=== PATIENT | male | born 1970 | race Caucasian/White ===

== ENCOUNTER 2016-07-26 07:39 | Emergency (ER) | payer OTHER ==
[~2016-07-26] VITALS: Ht 165.1 cm; Wt 58.1 kg
[2016-07-26] MEDS ORDERED: KETOROLAC 60 MG/2 ML VIAL (J1885) IM ONE (08:30)
--- NOTE | 2016-07-26 09:08 | REP ---
CT CERVICAL SPINE WITHOUT CONTRAST: HISTORY: Trauma. COMPARISON: 11/28/2009. There is no acute fracture or subluxation. Disc bulges with associated osteophyte formation are present at the C5-6 and C6-7 levels. There is minimal narrowing of the spinal canal. Uncinate process hypertrophy is present at the C5-6 and C6-7 levels. This produces minimal narrowing of the neural foramina. The C5-6 and C6-7 intervertebral discs are decreased in height consistent with disc degeneration. Bullae are present in the lung apices. IMPRESSION: 1. There is no acute fracture or subluxation. 2. Degenerative change as described above. Signed by Filemon Mart MD 07/26/2016 09:11 A
--- NOTE | 2016-07-26 09:23 | REP ---
LUMBAR SPINE, FIVE VIEWS: HISTORY: Trauma. COMPARISON: 04/28/2008 There is no acute fracture or subluxation. The L3-4 and L4-5 intervertebral discs are decreased in height consistent with disc degeneration. Osteophytes are present on L1 through L5. The facet joints are normal in appearance. IMPRESSION: Degenerative change as described above. Signed by Filemon Mart MD 07/26/2016 09:28 A
[2016-07-26 09:51] VITALS: BP 109/62
[2016-07-26] MEDS ORDERED: ZANA4TAB PO (09:52)
[2016-07-26] MEDS ORDERED: MOBI7.5T10 PO (09:52)
[2016-07-27] MEDS ORDERED: ACET50TAOT PO (00:37)
[2016-07-29] MEDS ORDERED: OMEP40CA2 PO (15:27)
== END 2016-07-26 10:03 | disposition home or self-care (01) ==
LOC: M ED 09:02
DX: M51.36 Other intervertebral disc degeneration, lumbar region (principal); M54.2 Cervicalgia; V49.40XA Driver injured in collision with unspecified motor vehicles in traffic accident, initial encounter; Y92.410 Unspecified street and highway as the place of occurrence of the external cause; Y93.89 Activity, other specified; Y99.9 Unspecified external cause status
CPT/HCPCS: 72110; 72125; 96372; 99283; J1885

== ENCOUNTER 2016-07-27 00:23 | Emergency (ER) | payer OTHER ==
[~2016-07-27] VITALS: Ht 165.1 cm; Wt 58.1 kg
[~2016-07-27 00:23] MED LIST: MOBI7.5T10 PO; ZANA4TAB PO
[2016-07-27 00:31] VITALS: BP 158/81
[2016-07-27] MEDS ORDERED: ACET50TAOT PO (00:37)
[2016-07-27] MEDS ORDERED: OXYCODONE/APAP 5MG/325MG(BULK FOR ED) 1 TABLET PO ONE (03:15)
[2016-07-27] MEDS ORDERED: MORPHINE 10 MG/ML 1ML VIAL IM ONE (03:15)
[2016-07-28] MEDS ORDERED: PRED20TA PO (09:21)
[2016-07-28] MEDS ORDERED: PERC5TAB6 PO (09:21)
[2016-07-29] MEDS ORDERED: OMEP40CA2 PO (15:27)
== END 2016-07-27 03:31 | disposition home or self-care (01) ==
LOC: M ED 01:39
DX: M54.41 Lumbago with sciatica, right side (principal)

== ENCOUNTER 2016-07-28 07:44 | Emergency (ER) | payer OTHER ==
[~2016-07-28] VITALS: Ht 165.1 cm; Wt 58.1 kg
[~2016-07-28 07:44] MED LIST changes: +ACET50TAOT PO
[2016-07-28 08:00] VITALS: BP 120/82
[2016-07-28] MEDS ORDERED: PERCOCET 5MG/325MG TAB PO ONE (08:45)
[2016-07-28] MEDS ORDERED: PERC5TAB6 PO (09:21)
[2016-07-28] MEDS ORDERED: PRED20TA PO (09:21)
[2016-07-29] MEDS ORDERED: OMEP40CA2 PO (15:27)
== END 2016-07-28 09:32 | disposition home or self-care (01) ==
LOC: M ED 09:14
DX: M54.41 Lumbago with sciatica, right side (principal)
CPT/HCPCS: 96372; 99283; J3360

== ENCOUNTER 2016-08-01 10:39 | Emergency (ER) | payer OTHER ==
[~2016-08-01] VITALS: Ht 165.1 cm; Wt 58.1 kg
[~2016-08-01 10:39] MED LIST changes: +OMEP40CA2 PO; +PERC5TAB6 PO; +PRED20TA PO
[2016-08-01 10:40] VITALS: BP 133/84
[2016-08-01] MEDS ORDERED: PRED20TA (10:57)
== END 2016-08-01 12:18 | disposition left against medical advice (07) ==
LOC: M ED 12:13
DX: M54.9 Dorsalgia, unspecified (principal); Z53.21 Procedure and treatment not carried out due to patient leaving prior to being seen by health care provider

== ENCOUNTER → 2016-08-04 | Outpatient (CLI) | payer OTHER ==
[~2016-08-04] VITALS: Ht 165.1 cm; Wt 58.1 kg
[~2016-08-04] MED LIST changes: +LIDOCAINE 2% INJ 100 MG/5 ML SDV (FOR ANES.) As Ordered ONE; +NS 1,000 ML IV ONE; +PRED20TA; +PROPOFOL 200 MG/20 ML VIAL As Ordered ONE; +TRAM50TA2 PO
--- NOTE | 2016-08-04 15:09 | ROOR ---
Patient Name: Hunter Leone Procedure Date: 08/04/2016 2:53 PM Date of : 1970 Age: 46 Room: OP02 Gender: Male Note Status: Finalized Procedure: Upper GI endoscopy Indications: Heartburn, Unexplained chest pain resolved on once a day PPI. ("tickle in throat" persists despite BID PPI and is not likely reflux related) Providers: Selvin SY MD Referring MD: [facility] DIONI Rebeca CTR [facility] Tam Requesting Provider: Medicines: Monitored Anesthesia Care Complications: No immediate complications. Procedure: Pre-Anesthesia Assessment: - The heart rate, respiratory rate, oxygen saturations, blood pressure, adequacy of pulmonary ventilation, and response to care were monitored throughout the procedure. The Endoscope was introduced through the mouth, and advanced to the second part of duodenum. The upper GI endoscopy was accomplished without difficulty. The patient tolerated the procedure well. Findings: The examined esophagus was normal. Diffuse mild inflammation was found in the gastric antrum. Biopsies were taken with a cold forceps for Helicobacter pylori testing. The exam of the stomach was otherwise normal. The examined duodenum was normal. Impression: - Normal esophagus. - Mild antral gastritis. Biopsied. - Normal examined duodenum. Recommendation: - Use Prilosec (omeprazole) 40 mg PO daily. - Telephone endoscopist for pathology results in 2 weeks. Selvin Sy MD Selvin SY MD 08/04/2016 3:09:32 PM This report has been signed electronically. Number of Addenda: 0 Note Initiated On: 08/04/2016 2:53 PM Estimated Blood Loss: Estimated blood loss: none.
[2016-08-04 15:35] VITALS: BP 160/86
== END | disposition home or self-care (01) ==
LOC: M OPP 13:09
PROVIDERS: ATTEND Internal Medicine Gastroenterology
DX: K29.70 Gastritis, unspecified, without bleeding (principal); F31.9 Bipolar disorder, unspecified; F17.210 Nicotine dependence, cigarettes, uncomplicated; M54.30 Sciatica, unspecified side; Z79.899 Other long term (current) drug therapy

== ENCOUNTER 2016-08-07 23:07 | Emergency (ER) | payer OTHER ==
[~2016-08-07] VITALS: Ht 165.1 cm; Wt 59.0 kg
[2016-08-07 23:07] VITALS: BP 141/86
[~2016-08-07 23:07] MED LIST changes: -LIDOCAINE 2% INJ 100 MG/5 ML SDV (FOR ANES.) As Ordered ONE; -NS 1,000 ML IV ONE; -PROPOFOL 200 MG/20 ML VIAL As Ordered ONE; -TRAM50TA2 PO
[2016-08-08] MEDS ORDERED: dexameTHASONE 20 MG/5 ML VIAL (J1100) IM ONE (01:15)
[2016-08-08] MEDS ORDERED: KETOROLAC 60 MG/2 ML VIAL (J1885) IM ONE (01:15)
--- NOTE | 2016-08-08 02:30 | REPUSA ---
CLINICAL HISTORY: Back pain. TECHNIQUE: Multiple axial images were obtained through the L1-L2, L2-L3, L3-L4, L4-L5 and L5-S1 inter spaces. Images were also reconstructed in coronal and sagittal planes. COMMENTS: Mild degenerative levoscoliosis apex at L3. Straightening of lumbar lordosis. There is no fracture visualized. The paraspinal soft tissues are unremarkable. There are no lytic or blastic lesions. Straightening of lumbar lordosis is seen, suggesting muscular spasm. There is evidence of multilevel disk disease, demonstrated by osteophytosis ad endplate sclerosis. Evaluation of individual levels reveals the following: At L5-S1, mild diffuse disc bulge and posterior osteophyte formation. No significant narrowing of the spinal canal. Mild bilateral neural foramina narrowing. At L4-L5, mild diffuse disc bulge. Superimposed right foraminal/far lateral broad-based disc protrusi on measuring 4.6 mm. Moderate right and mild left neural foramina narrowing. At L3-L4, L2-L3 and L1-L2 levels, mild diffuse disc bulge. No significant narrowing of the spinal can al. Mild bilateral neural foramina narrowing. IMPRESSION: 1. No fracture or spondylolisthesis. 2. Straightening of lumbar lordosis is seen, suggesting muscular spasm. 3. At L5-S1, mild diffuse disc bulge and posterior osteophyte formation. No significant narrowing of the spinal canal. Mild bilateral neural foramina narrowing. 4. At L4-L5, mild diffuse disc bulge. Superimposed right foraminal/far lateral broad-based disc protr usion measuring 4.6 mm. Moderate right and mild left neural foramina narrowing. 5. At L3-L4, L2-L3 and L1-L2 levels, mild diffuse disc bulge. No significant narrowing of the spinal canal. Mild bilateral neural foramina narrowing. Thank you for your kind referral of this patient.
[2016-08-08] MEDS ORDERED: PRED20TA PO (02:40)
[2016-08-08] MEDS ORDERED: TRAM50TA2 PO (02:41)
[2016-08-08] MEDS ORDERED: traMADol 50 MG TAB PO ONE (02:45)
[2016-08-08] MEDS ORDERED: MORPHINE 10 MG/ML 1ML VIAL IM ONE (03:00)
== END 2016-08-08 03:43 | disposition home or self-care (01) ==
LOC: M ED 23:58
DX: M54.31 Sciatica, right side (principal); F17.210 Nicotine dependence, cigarettes, uncomplicated
CPT/HCPCS: 72131; 96372; 99282; J1100; J1885

== ENCOUNTER → 2017-01-23 | Outpatient (CLI) | payer OTHER ==
[~2017-01-23] MED LIST changes: +MOBI4TAB PO; -MOBI7.5T10 PO; +PERC5TAB12 PO; -PERC5TAB6 PO; +TRAM50TA2 PO
--- NOTE | 2017-01-23 10:21 | REP ---
Clinical: Acute neck and shoulder pain. Technique: Internal rotation, external rotation, and Y view of the right shoulder. Findings: Cortical irregularity and fraying along the inferior margin of the glenoid rim may reflect old injury. No acute gleno-humeral joint dislocation or fracture identified. Acromioclavicular joint appears normal. Subacromial space is normal. No periarticular calcifications. Impression: Irregularity along the inferior margin of the glenoid rim appears nonacute and may reflect old injury. Correlation is recommended. Signed by Slade Sun MD 01/23/2017 10:12 A
--- NOTE | 2017-01-23 10:22 | REP ---
Clinical: Acute pain. Technique: AP, lateral, flexion/extension, bilateral oblique and open mouth views of the cervical spine. Findings: Straightening of normal lordosis may be secondary to positioning versus pain/spasm. Advanced degenerative disc osteophyte complex at the C5-6 and C6-7 levels with moderate degenerative change at the C4-5 and C7-T1 levels noted. Findings include marginal osteophytes, endplate sclerosis and disc space narrowing. Posterior elements and spinous processes are intact. Open mouth view demonstrates normal C1-C2 articulation and odontoid process. Alignment is maintained and without subluxation. No acute fracture or dislocation. Prevertebral soft tissues are normal. Oblique views demonstrate patent neural foramen. Impression: Moderate/advanced degenerative changes. Signed by Slade Sun MD 01/23/2017 10:14 A
== END ==
LOC: M RAD 09:28
PROVIDERS: ATTEND Physician Assistant
DX: M50.30 Other cervical disc degeneration, unspecified cervical region (principal)

== ENCOUNTER → 2017-03-03 | Outpatient (CLI) | payer OTHER | LOC: M RAD 08:05 | DX: M54.12 Radiculopathy, cervical region (principal) | CPT/HCPCS: 72141 ==

== ENCOUNTER 2017-05-19 12:55 | Emergency (ER) | payer OTHER ==
[2017-05-19] MEDS: NS 1,000 ML IV (12:15)
[2017-05-19 12:40] LABS: BASO % 0.3 % (0.0-1.0); EOS # 0.1 10^3/uL (0.0-0.50); EOS % 0.7 % (0.0-3.0); HEMATOCRIT 45.9 % (42.0-52.0); HEMOGLOBIN 16.5 g/dl (14.0-18.0); IMMATURE GRANULOCYTE % 0.3 % (0-3.0); LYMPH # 1.8 10^3/uL (1.5-4.5); MEAN CORPUSCULAR HEMOGLOBIN 31.1 pg (27.0-33.0); MEAN CORPUSCULAR HGB CONC 35.9 g/dl (32.0-36.5); MEAN CORPUSCULAR VOLUME 86.4 fl (80.0-96.0); MONO # 0.7 10^3/uL (0.0-0.8); MONO % 7.3 % (0.0-5.0); NEUTROPHILS # 7.3 10^3/uL (1.8-7.7); NEUTROPHILS % 73.4 % (36.0-66.0); PLATELET COUNT, AUTOMATED 369 10^3/uL (150-450); RED BLOOD COUNT 5.31 10^6/uL (4.30-6.10); RED CELL DISTRIBUTION WIDTH 11.4 % (11.5-14.5)
[2017-05-19 12:53] LABS: ALBUMIN 4.3 GM/DL (3.2-5.2); ALBUMIN/GLOBULIN RATIO 1.54 (1.00-1.93); ALT/SGPT 18 U/L (12-78); ANION GAP 9 MEQ/L (8-16); AST/SGOT 14 U/L (7-37); BILIRUBIN,DIRECT 0.2 MG/DL (0.0-0.2); BILIRUBIN,TOTAL 0.9 MG/DL (0.2-1.0); BLOOD UREA NITROGEN 15 MG/DL (7-18); CALCIUM LEVEL 9.1 MG/DL (8.5-10.1); CARBON DIOXIDE LEVEL 24 MEQ/L (21-32); CHLORIDE LEVEL 105 MEQ/L (98-107); CPK CREATINE PHOSPHOKINASE 156 U/L (39-308); GLOMERULAR FILTRATION RATE > 60.0 (>60); GLUCOSE, FASTING 101 MG/DL (70-100); MAGNESIUM LEVEL 2.3 MG/DL (1.8-2.4); PHOSPHORUS LEVEL 2.3 MG/DL (2.5-4.9); POTASSIUM SERUM 3.9 MEQ/L (3.5-5.1); SODIUM LEVEL 138 MEQ/L (136-145); TOTAL PROTEIN 7.1 GM/DL (6.4-8.2); TROPONIN I < 0.02 NG/ML (< 0.10)
[2017-05-19 12:59] LABS: ALKALINE PHOSPHATASE 81 U/L (45-117); CK-MB VALUE MASS 1.1 NG/ML (0.0-3.6); FREE T4 1.48 NG/DL (0.76-1.46)
[2017-05-19] MEDS: NEUTRA-PHOS 1.25 GM PACKET PO (13:15)
[2017-05-19 13:27] LABS: AMPHETAMINES LEVEL URINE POSITIVE (NEGATIVE); BARBITURATES URINE NEGATIVE (NEGATIVE); BENZODIAZEPINES URINE NEGATIVE (NEGATIVE); CANNABINOIDS URINE POSITIVE (NEGATIVE); COCAINE METABOLITE URINE NEGATIVE (NEGATIVE); METHADONE URINE NEGATIVE (NEGATIVE); OPIATES URINE NEGATIVE (NEGATIVE); PHENCYCLIDINE URINE NEGATIVE (NEGATIVE)
== END 2017-05-19 14:40 | disposition home or self-care (01) ==
LOC: M ED 12:55
DX: R00.2 Palpitations (principal); F15.10 Other stimulant abuse, uncomplicated; F31.9 Bipolar disorder, unspecified; F17.200 Nicotine dependence, unspecified, uncomplicated; F12.10 Cannabis abuse, uncomplicated
CPT/HCPCS: 71046

== ENCOUNTER 2017-07-10 15:16 | Inpatient (IN) | payer MEDICAID, OTHER ==
[2017-07-10 16:20] LABS: HEMATOCRIT 41.8 % (42.0-52.0); HEMOGLOBIN 14.8 g/dl (13.5-17.5); MEAN CORPUSCULAR HEMOGLOBIN 31.2 pg (27.0-33.0); MEAN CORPUSCULAR HGB CONC 35.4 g/dl (32.0-36.5); PLATELET COUNT, AUTOMATED 417 10^3/uL (150-450); RED BLOOD COUNT 4.75 10^6/uL (4.30-6.10); RED CELL DISTRIBUTION WIDTH 11.9 % (11.5-14.5); WHITE BLOOD COUNT 9.1 10^3/uL (4.0-10.0)
[2017-07-10 16:42] LABS: AMPHETAMINES LEVEL URINE POSITIVE (NEGATIVE); BARBITURATES URINE NEGATIVE (NEGATIVE); BENZODIAZEPINES URINE NEGATIVE (NEGATIVE); CANNABINOIDS URINE POSITIVE (NEGATIVE); COCAINE METABOLITE URINE NEGATIVE (NEGATIVE); METHADONE URINE NEGATIVE (NEGATIVE); OPIATES URINE NEGATIVE (NEGATIVE); PHENCYCLIDINE URINE NEGATIVE (NEGATIVE)
[2017-07-10 16:53] LABS: ALBUMIN 4.1 GM/DL (3.2-5.2); ALBUMIN/GLOBULIN RATIO 1.14 (1.00-1.93); ALKALINE PHOSPHATASE 83 U/L (45-117); ALT/SGPT 15 U/L (12-78); ANION GAP 6 MEQ/L (8-16); AST/SGOT 16 U/L (7-37); BILIRUBIN,DIRECT 0.1 MG/DL (0.0-0.2); BILIRUBIN,TOTAL 0.7 MG/DL (0.2-1.0); BLOOD UREA NITROGEN 9 MG/DL (7-18); CALCIUM LEVEL 8.9 MG/DL (8.5-10.1); CARBON DIOXIDE LEVEL 27 MEQ/L (21-32); CHLORIDE LEVEL 106 MEQ/L (98-107); CREATININE FOR GFR 1.06 MG/DL (0.70-1.30); ETHYL ALCOHOL (ETHANOL) < 0.003 % (0.000-0.010); GLOMERULAR FILTRATION RATE > 60.0 (>60); GLUCOSE, FASTING 113 MG/DL (70-100); POTASSIUM SERUM 3.4 MEQ/L (3.5-5.1); SALICYLATE LEVEL 3.4 MG/DL (5.0-30.0); SODIUM LEVEL 139 MEQ/L (136-145); TOTAL PROTEIN 7.7 GM/DL (6.4-8.2)
[2017-07-10 17:00] LABS: ACETAMINOPHEN LEVEL < 2.0 UG/ML (10.0-30.0)
[2017-07-10] MEDS ORDERED: MAALOX 30 ML SUSP *UDC PO (18:45)
[2017-07-10] MEDS ORDERED: MOM 30ML SUSPENSION UDC PO (18:45)
[2017-07-10] MEDS ORDERED: ACETAMINOPHEN TAB 650MG DOSE (2X325MG) PO (18:45)
[2017-07-10] MEDS: hydrOXYzine 50 MG TAB PO (21:21)
[2017-07-10] MEDS: traZODone 50 MG TAB PO (22:37)
[2017-07-11] MEDS: NICOTINE 21MG/24HR 1 EA TRANSDERMAL TD ×2 (09:00→11:38)
[2017-07-11 10:05] LABS: ALBUMIN 3.6 GM/DL (3.2-5.2); ALBUMIN/GLOBULIN RATIO 1.16 (1.00-1.93); ALKALINE PHOSPHATASE 73 U/L (45-117); ALT/SGPT 15 U/L (12-78); ANION GAP 5 MEQ/L (8-16); AST/SGOT 15 U/L (7-37); BILIRUBIN,TOTAL 0.6 MG/DL (0.2-1.0); BLOOD UREA NITROGEN 9 MG/DL (7-18); CALCIUM LEVEL 9.2 MG/DL (8.5-10.1); CARBON DIOXIDE LEVEL 32 MEQ/L (21-32); CHLORIDE LEVEL 106 MEQ/L (98-107); CREATININE FOR GFR 1.11 MG/DL (0.70-1.30); GLOMERULAR FILTRATION RATE > 60.0 (>60); GLUCOSE, FASTING 84 MG/DL (70-100); MAGNESIUM LEVEL 2.5 MG/DL (1.8-2.4); POTASSIUM SERUM 4.4 MEQ/L (3.5-5.1); SODIUM LEVEL 143 MEQ/L (136-145); TOTAL PROTEIN 6.7 GM/DL (6.4-8.2)
[2017-07-11] MEDS: hydrOXYzine 50 MG TAB PO (16:13)
[2017-07-11] MEDS: traZODone 50 MG TAB PO (20:23)
[2017-07-12 09:09] LABS: HEPATITIS B SURFACE ANTIGEN NEGATIVE (NEGATIVE)
[2017-07-12 09:17] LABS: HEPATITIS C VIRUS ABY INDEX < 0.0 INDEX (<0.8)
[2017-07-12 09:18] LABS: HEPATITIS B CORE ANTIBODY IGM NEGATIVE (NEGATIVE); HIV 1&2 SCREEN CENTAUR NEGATIVE (NEGATIVE)
[2017-07-12 09:19] LABS: HEPATITIS A ANTIBODY IGM NEGATIVE (NEGATIVE)
[2017-07-12] MEDS: NICOTINE 21MG/24HR 1 EA TRANSDERMAL TD (09:37)
== END 2017-07-12 14:25 | disposition home or self-care (01) | DRG 885 ==
LOC: M ED 15:16 → M ED INP 18:43 → M PSY 20:01
DX: F31.9 Bipolar disorder, unspecified (principal); F15.10 Other stimulant abuse, uncomplicated; F17.210 Nicotine dependence, cigarettes, uncomplicated; R25.2 Cramp and spasm; F43.23 Adjustment disorder with mixed anxiety and depressed mood; Z63.5 Disruption of family by separation and divorce; Z63.79 Other stressful life events affecting family and household; Z59.0 Homelessness

== ENCOUNTER 2017-07-24 11:43 | Inpatient (IN) | payer MEDICAID, OTHER ==
[2017-07-24 12:31] LABS: HEMATOCRIT 41.1 % (42.0-52.0); HEMOGLOBIN 14.4 g/dl (13.5-17.5); MEAN CORPUSCULAR HEMOGLOBIN 31.1 pg (27.0-33.0); MEAN CORPUSCULAR VOLUME 88.8 fl (80.0-96.0); PLATELET COUNT, AUTOMATED 402 10^3/uL (150-450); RED BLOOD COUNT 4.63 10^6/uL (4.30-6.10); RED CELL DISTRIBUTION WIDTH 11.9 % (11.5-14.5); WHITE BLOOD COUNT 7.6 10^3/uL (4.0-10.0)
[2017-07-24 12:55] LABS: AMPHETAMINES LEVEL URINE POSITIVE (NEGATIVE); BARBITURATES URINE NEGATIVE (NEGATIVE); BENZODIAZEPINES URINE NEGATIVE (NEGATIVE); CANNABINOIDS URINE POSITIVE (NEGATIVE); COCAINE METABOLITE URINE NEGATIVE (NEGATIVE); METHADONE URINE NEGATIVE (NEGATIVE); OPIATES URINE NEGATIVE (NEGATIVE); PHENCYCLIDINE URINE NEGATIVE (NEGATIVE)
[2017-07-24 12:59] LABS: ACETAMINOPHEN LEVEL < 2.0 UG/ML (10.0-30.0); ALBUMIN/GLOBULIN RATIO 1.25 (1.00-1.93); ALKALINE PHOSPHATASE 75 U/L (45-117); ALT/SGPT 20 U/L (12-78); ANION GAP 7 MEQ/L (8-16); AST/SGOT 19 U/L (7-37); BILIRUBIN,DIRECT 0.2 MG/DL (0.0-0.2); BILIRUBIN,TOTAL 0.7 MG/DL (0.2-1.0); BLOOD UREA NITROGEN 9 MG/DL (7-18); CALCIUM LEVEL 8.9 MG/DL (8.5-10.1); CARBON DIOXIDE LEVEL 29 MEQ/L (21-32); CHLORIDE LEVEL 104 MEQ/L (98-107); CREATININE FOR GFR 1.04 MG/DL (0.70-1.30); ETHYL ALCOHOL (ETHANOL) < 0.003 % (0.000-0.010); GLOMERULAR FILTRATION RATE > 60.0 (>60); GLUCOSE, FASTING 135 MG/DL (70-100); POTASSIUM SERUM 3.7 MEQ/L (3.5-5.1); SALICYLATE LEVEL 2.9 MG/DL (5.0-30.0); SODIUM LEVEL 140 MEQ/L (136-145); TOTAL PROTEIN 7.2 GM/DL (6.4-8.2)
[2017-07-24] MEDS: NICOTINE 21MG/24HR 1 EA TRANSDERMAL TD (13:45)
[2017-07-24] MEDS ORDERED: ACETAMINOPHEN TAB 650MG DOSE (2X325MG) PO (18:45)
[2017-07-24] MEDS ORDERED: MOM 30ML SUSPENSION UDC PO (18:45)
[2017-07-24] MEDS: traZODone 50 MG TAB PO (20:58)
[2017-07-25] MEDS: NICOTINE 21MG/24HR 1 EA TRANSDERMAL TD (08:08)
[2017-07-25] MEDS: BACTRIM 160MG/800MG DS TAB PO ×2 (09:11→20:08)
[2017-07-25] MEDS: hydrOXYzine 50 MG TAB PO (12:35)
[2017-07-25] MEDS: traZODone 50 MG TAB PO (20:08)
[2017-07-25] MEDS: MAALOX 30 ML SUSP *UDC PO (20:08)
[2017-07-26] MEDS: BACTRIM 160MG/800MG DS TAB PO ×2 (08:30→20:05)
[2017-07-26] MEDS: NICOTINE 21MG/24HR 1 EA TRANSDERMAL TD (08:31)
[2017-07-26] MEDS: MAALOX 30 ML SUSP *UDC PO (20:06)
[2017-07-26] MEDS: traZODone 50 MG TAB PO (20:07)
[2017-07-27] MEDS: BACTRIM 160MG/800MG DS TAB PO (08:26)
[2017-07-27] MEDS: NICOTINE 21MG/24HR 1 EA TRANSDERMAL TD (08:26)
[2017-07-27] MEDS: ARIPiprazole MONOHYDRATE 400 MG INJ (ABILIFY)(J0401) IM (09:43)
== END 2017-07-27 11:00 | disposition home or self-care (01) | DRG 885 ==
LOC: M ED 11:43 → M ED INP 15:27 → M PSY 16:38
DX: F31.9 Bipolar disorder, unspecified (principal); F43.23 Adjustment disorder with mixed anxiety and depressed mood; F15.10 Other stimulant abuse, uncomplicated; F17.210 Nicotine dependence, cigarettes, uncomplicated; Z59.0 Homelessness; Z79.899 Other long term (current) drug therapy

== ENCOUNTER 2017-08-01 08:56 | Inpatient (IN) | payer MEDICAID, OTHER ==
[2017-08-01 09:46] LABS: HEMATOCRIT 40.9 % (42.0-52.0); HEMOGLOBIN 14.3 g/dl (13.5-17.5); MEAN CORPUSCULAR VOLUME 88.7 fl (80.0-96.0); PLATELET COUNT, AUTOMATED 272 10^3/uL (150-450); RED BLOOD COUNT 4.61 10^6/uL (4.30-6.10); RED CELL DISTRIBUTION WIDTH 11.9 % (11.5-14.5); WHITE BLOOD COUNT 5.6 10^3/uL (4.0-10.0)
[2017-08-01 10:12] LABS: AMPHETAMINES LEVEL URINE POSITIVE (NEGATIVE); BARBITURATES URINE NEGATIVE (NEGATIVE); BENZODIAZEPINES URINE NEGATIVE (NEGATIVE); CANNABINOIDS URINE NEGATIVE (NEGATIVE); COCAINE METABOLITE URINE POSITIVE (NEGATIVE); METHADONE URINE NEGATIVE (NEGATIVE); OPIATES URINE NEGATIVE (NEGATIVE); PHENCYCLIDINE URINE NEGATIVE (NEGATIVE)
[2017-08-01 10:20] LABS: ACETAMINOPHEN LEVEL < 2.0 UG/ML (10.0-30.0); ALBUMIN 3.7 GM/DL (3.2-5.2); ALBUMIN/GLOBULIN RATIO 1.19 (1.00-1.93); ALKALINE PHOSPHATASE 83 U/L (45-117); ALT/SGPT 22 U/L (12-78); ANION GAP 5 MEQ/L (8-16); AST/SGOT 22 U/L (7-37); BILIRUBIN,DIRECT 0.1 MG/DL (0.0-0.2); BILIRUBIN,TOTAL 0.5 MG/DL (0.2-1.0); BLOOD UREA NITROGEN 11 MG/DL (7-18); CALCIUM LEVEL 8.4 MG/DL (8.5-10.1); CARBON DIOXIDE LEVEL 28 MEQ/L (21-32); CHLORIDE LEVEL 103 MEQ/L (98-107); CREATININE FOR GFR 0.99 MG/DL (0.70-1.30); GLOMERULAR FILTRATION RATE > 60.0 (>60); GLUCOSE, FASTING 107 MG/DL (70-100); POTASSIUM SERUM 4.2 MEQ/L (3.5-5.1); SALICYLATE LEVEL 3.3 MG/DL (5.0-30.0); SODIUM LEVEL 136 MEQ/L (136-145); TOTAL PROTEIN 6.8 GM/DL (6.4-8.2)
[2017-08-01 10:21] LABS: ETHYL ALCOHOL (ETHANOL) < 0.003 % (0.000-0.010)
[2017-08-01 10:31] LABS: CPK CREATINE PHOSPHOKINASE 103 U/L (39-308)
[2017-08-01] MEDS ORDERED: ACETAMINOPHEN TAB 650MG DOSE (2X325MG) PO (14:45)
[2017-08-01] MEDS: NICOTINE 21MG/24HR 1 EA TRANSDERMAL TD (14:45)
[2017-08-01] MEDS ORDERED: MOM 30ML SUSPENSION UDC PO (14:45)
[2017-08-01] MEDS: traZODone 50 MG TAB PO (22:34)
[2017-08-01 22:41] LABS: CHLAMYDIA DNA AMPLIFICATION NEGATIVE (NEGATIVE); GC DNA AMPLIFICATION NEGATIVE (NEGATIVE)
[2017-08-02] MEDS: NICOTINE 21MG/24HR 1 EA TRANSDERMAL TD (09:09)
[2017-08-02] MEDS: MAALOX 30 ML SUSP *UDC PO (11:46)
[2017-08-02 11:53] LABS: BASO % 0.5 % (0.0-1.0); EOS # 0.1 10^3/uL (0.0-0.50); EOS % 3.4 % (0.0-3.0); HEMATOCRIT 39.1 % (42.0-52.0); HEMOGLOBIN 13.6 g/dl (13.5-17.5); IMMATURE GRANULOCYTE % 0.2 % (0-3.0); LYMPH # 1.1 10^3/uL (1.5-4.5); LYMPH % 26.8 % (24.0-44.0); MEAN CORPUSCULAR HEMOGLOBIN 31.1 pg (27.0-33.0); MEAN CORPUSCULAR HGB CONC 34.8 g/dl (32.0-36.5); MEAN CORPUSCULAR VOLUME 89.3 fl (80.0-96.0); MONO # 0.6 10^3/uL (0.0-0.8); MONO % 14.8 % (0.0-5.0); NEUTROPHILS # 2.2 10^3/uL (1.8-7.7); NEUTROPHILS % 54.3 % (36.0-66.0); PLATELET COUNT, AUTOMATED 276 10^3/uL (150-450); RED BLOOD COUNT 4.38 10^6/uL (4.30-6.10); WHITE BLOOD COUNT 4.1 10^3/uL (4.0-10.0)
[2017-08-02 12:05] LABS: D-DIMER QUANT 835.8 ng/ml (<500)
[2017-08-02 12:26] LABS: ALBUMIN 3.2 GM/DL (3.2-5.2); ALBUMIN/GLOBULIN RATIO 0.91 (1.00-1.93); ALKALINE PHOSPHATASE 73 U/L (45-117); ALT/SGPT 25 U/L (12-78); ANION GAP 4 MEQ/L (8-16); AST/SGOT 21 U/L (7-37); BILIRUBIN,TOTAL 0.3 MG/DL (0.2-1.0); BLOOD UREA NITROGEN 15 MG/DL (7-18); CALCIUM LEVEL 8.8 MG/DL (8.5-10.1); CARBON DIOXIDE LEVEL 32 MEQ/L (21-32); CHLORIDE LEVEL 102 MEQ/L (98-107); CPK CREATINE PHOSPHOKINASE 62 U/L (39-308); CREATININE FOR GFR 1.02 MG/DL (0.70-1.30); GLOMERULAR FILTRATION RATE > 60.0 (>60); GLUCOSE, FASTING 90 MG/DL (70-100); POTASSIUM SERUM 4.4 MEQ/L (3.5-5.1); SODIUM LEVEL 138 MEQ/L (136-145); TOTAL PROTEIN 6.7 GM/DL (6.4-8.2); TROPONIN I 0.31 NG/ML (< 0.10)
[2017-08-02 12:27] LABS: CK-MB VALUE MASS < 1.0 NG/ML (<3.6); MB/CK RELATIVE INDEX 1.61 (< OR =4)
[2017-08-02] MEDS ORDERED: ISOVUE-370 76% 100ML VIAL (Q9967) As Ordered (12:35)
[2017-08-02 12:38] LABS: KETONE, URINE AUTO RFX NEGATIVE (NEGATIVE); LEUKOCYTE ESTERASE UR AUTO RFX NEGATIVE (NEGATIVE); MUCUS, URINE RFX SMALL (NEGATIVE); NITRITE, URINE AUTO RFX NEGATIVE (NEGATIVE); RBC, URINE AUTO RFX 1 /HPF (0-3); SQUAM EPITHELIAL CELL UR AURFX 0 /HPF (0-6); WBC, URINE AUTO RFX 0 /HPF (0-3)
[2017-08-02] MEDS: traZODone 50 MG TAB PO (20:30)
[2017-08-03 06:01] LABS: CK-MB VALUE MASS 1.1 NG/ML (<3.6); CPK CREATINE PHOSPHOKINASE 45 U/L (39-308); MB/CK RELATIVE INDEX 2.44 (< OR =4); TROPONIN I 0.29 NG/ML (< 0.10)
[2017-08-03] MEDS: NICOTINE 21MG/24HR 1 EA TRANSDERMAL TD (08:43)
[2017-08-03] MEDS: hydrOXYzine 50 MG TAB PO (16:47)
[2017-08-03 17:41] LABS: FREE THYROXINE INDEX 2.6 % (1.4-3.8); T UPTAKE 32 % (33-40)
[2017-08-03 17:41] LABS: TROPONIN I 0.16 NG/ML (< 0.10)
[2017-08-03] MEDS: MAALOX 30 ML SUSP *UDC PO (20:09)
[2017-08-03] MEDS: traZODone 50 MG TAB PO (20:09)
[2017-08-03] MEDS ORDERED: cloNIDine 0.1 MG TAB PO (20:45)
[2017-08-04 03:02] LABS: HSV IgM TYPES 1&2 <0.91 Ratio (0.00-0.90)
[2017-08-04] MEDS: MAALOX 30 ML SUSP *UDC PO (09:16)
[2017-08-04] MEDS: NICOTINE 21MG/24HR 1 EA TRANSDERMAL TD (09:17)
[2017-08-04] MEDS: hydrOXYzine 50 MG TAB PO (17:01)
[2017-08-04] MEDS: traZODone 50 MG TAB PO (20:15)
[2017-08-05] MEDS: NICOTINE 21MG/24HR 1 EA TRANSDERMAL TD (09:22)
[2017-08-05] MEDS: hydrOXYzine 50 MG TAB PO (16:21)
[2017-08-05] MEDS: traZODone 50 MG TAB PO (20:23)
[2017-08-06] MEDS: NICOTINE 21MG/24HR 1 EA TRANSDERMAL TD (08:07)
[2017-08-06] MEDS: hydrOXYzine 50 MG TAB PO (20:14)
[2017-08-06] MEDS: traZODone 50 MG TAB PO (20:14)
[2017-08-07] MEDS: NICOTINE 21MG/24HR 1 EA TRANSDERMAL TD (09:00)
== END 2017-08-07 08:30 | disposition home or self-care (01) | DRG 885 ==
LOC: M PSY 08-04 18:20 → M ED 08:56 → M ED INP 12:34 → M PSY 13:22
DX: F31.9 Bipolar disorder, unspecified (principal); F12.10 Cannabis abuse, uncomplicated; F14.10 Cocaine abuse, uncomplicated; F15.10 Other stimulant abuse, uncomplicated; F17.210 Nicotine dependence, cigarettes, uncomplicated; R05 Cough; R06.02 Shortness of breath; F19.24 Other psychoactive substance dependence with psychoactive substance-induced mood disorder; Z79.899 Other long term (current) drug therapy

== ENCOUNTER 2018-01-09 07:11 | Emergency (ER) | payer OTHER, MEDICAID ==
[2018-01-09] MEDS: NS 1,000 ML IV ×2 (07:45→12:06)
[2018-01-09 07:55] LABS: HEMATOCRIT 42.7 % (42.0-52.0); HEMOGLOBIN 14.5 g/dl (13.5-17.5); MEAN CORPUSCULAR HEMOGLOBIN 30.5 pg (27.0-33.0); MEAN CORPUSCULAR VOLUME 89.9 fl (80.0-96.0); PLATELET COUNT, AUTOMATED 238 10^3/uL (150-450); RED BLOOD COUNT 4.75 10^6/uL (4.30-6.10); RED CELL DISTRIBUTION WIDTH 13.1 % (11.5-14.5); WHITE BLOOD COUNT 5.4 10^3/uL (4.0-10.0)
[2018-01-09 10:20] LABS: ACETAMINOPHEN LEVEL 2.1 UG/ML (10.0-30.0); ALBUMIN/GLOBULIN RATIO 1.25 (1.00-1.93); ALKALINE PHOSPHATASE 59 U/L (45-117); ALT/SGPT 13 U/L (12-78); ANION GAP 9 MEQ/L (8-16); AST/SGOT 20 U/L (7-37); BILIRUBIN,DIRECT 0.1 MG/DL (0.0-0.2); BILIRUBIN,TOTAL 0.4 MG/DL (0.2-1.0); BLOOD UREA NITROGEN 14 MG/DL (7-18); CALCIUM LEVEL 7.6 MG/DL (8.5-10.1); CARBON DIOXIDE LEVEL 25 MEQ/L (21-32); CHLORIDE LEVEL 103 MEQ/L (98-107); CPK CREATINE PHOSPHOKINASE 148 U/L (39-308); CREATININE FOR GFR 0.86 MG/DL (0.70-1.30); ETHYL ALCOHOL (ETHANOL) < 0.003 % (0.000-0.010); GLOMERULAR FILTRATION RATE > 60.0 (>60); GLUCOSE, FASTING 119 MG/DL (70-100); MAGNESIUM LEVEL 1.9 MG/DL (1.8-2.4); MB/CK RELATIVE INDEX 1.22 (< OR =4); MYOGLOBIN 47 NG/ML (16-116); PHOSPHORUS LEVEL 2.8 MG/DL (2.5-4.9); POTASSIUM SERUM 3.6 MEQ/L (3.5-5.1); SALICYLATE LEVEL < 1.7 MG/DL (5.0-30.0); SODIUM LEVEL 137 MEQ/L (136-145); TOTAL PROTEIN 5.4 GM/DL (6.4-8.2); TROPONIN I < 0.02 NG/ML (< 0.10); VALPROIC ACID (DEPAKOTE) < 3.0 UG/ML (50.0-100.0)
[2018-01-09] MEDS: LORazepam 2 MG/ML VIAL (J2060) IV (13:19)
[2018-01-09 15:49] LABS: AMPHETAMINES LEVEL URINE POSITIVE (NEGATIVE)
[2018-01-09 15:50] LABS: BARBITURATES URINE NEGATIVE (NEGATIVE); BENZODIAZEPINES URINE NEGATIVE (NEGATIVE); CANNABINOIDS URINE NEGATIVE (NEGATIVE); COCAINE METABOLITE URINE NEGATIVE (NEGATIVE); METHADONE URINE NEGATIVE (NEGATIVE); OPIATES URINE NEGATIVE (NEGATIVE); PHENCYCLIDINE URINE NEGATIVE (NEGATIVE)
[2018-01-09] MEDS: GABAPENTIN 300 MG CAP PO (22:32)
[2018-01-09] MEDS: DIVALPROEX 500 MG TAB PO (22:32)
== END 2018-01-10 08:09 ==
LOC: M ED 01-10 08:09
DX: F19.10 Other psychoactive substance abuse, uncomplicated (principal); R45.851 Suicidal ideations; F32.9 Major depressive disorder, single episode, unspecified; F41.9 Anxiety disorder, unspecified; Z79.899 Other long term (current) drug therapy
CPT/HCPCS: J2060

== ENCOUNTER 2018-02-02 22:49 | Emergency (ER) | payer OTHER | END 2018-02-03 01:02 | disposition home or self-care (01) | LOC: M ED 22:49 | DX: F11.10 Opioid abuse, uncomplicated (principal) | CPT/HCPCS: 99285 ==

== ENCOUNTER 2018-02-05 11:07 | Inpatient (IN) | payer MEDICAID, OTHER ==
[2018-02-05] MEDS: NICOTINE 21MG/24HR 1 EA TRANSDERMAL TD (09:00)
[2018-02-05 12:27] LABS: HEMATOCRIT 47.3 % (42.0-52.0); HEMOGLOBIN 16.1 g/dl (13.5-17.5); MEAN CORPUSCULAR HEMOGLOBIN 29.8 pg (27.0-33.0); MEAN CORPUSCULAR VOLUME 87.6 fl (80.0-96.0); PLATELET COUNT, AUTOMATED 403 10^3/uL (150-450); RED CELL DISTRIBUTION WIDTH 12.5 % (11.5-14.5); WHITE BLOOD COUNT 7.4 10^3/uL (4.0-10.0)
[2018-02-05 12:52] LABS: AMPHETAMINES LEVEL URINE POSITIVE (NEGATIVE); BARBITURATES URINE NEGATIVE (NEGATIVE); BENZODIAZEPINES URINE NEGATIVE (NEGATIVE); CANNABINOIDS URINE NEGATIVE (NEGATIVE); COCAINE METABOLITE URINE NEGATIVE (NEGATIVE); METHADONE URINE NEGATIVE (NEGATIVE); OPIATES URINE POSITIVE (NEGATIVE); PHENCYCLIDINE URINE NEGATIVE (NEGATIVE)
[2018-02-05 13:37] LABS: ACETAMINOPHEN LEVEL < 2.0 UG/ML (10.0-30.0); ALBUMIN 3.6 GM/DL (3.2-5.2); ALBUMIN/GLOBULIN RATIO 0.82 (1.00-1.93); ALKALINE PHOSPHATASE 99 U/L (45-117); ALT/SGPT 25 U/L (12-78); ANION GAP 8 MEQ/L (8-16); AST/SGOT 23 U/L (7-37); BILIRUBIN,DIRECT < 0.1 MG/DL (0.0-0.2); BILIRUBIN,TOTAL 0.5 MG/DL (0.2-1.0); BLOOD UREA NITROGEN 11 MG/DL (7-18); CALCIUM LEVEL 9.1 MG/DL (8.5-10.1); CARBON DIOXIDE LEVEL 25 MEQ/L (21-32); CHLORIDE LEVEL 105 MEQ/L (98-107); CREATININE FOR GFR 0.96 MG/DL (0.70-1.30); ETHYL ALCOHOL (ETHANOL) < 0.003 % (0.000-0.010); GLOMERULAR FILTRATION RATE > 60.0 (>60); GLUCOSE, FASTING 79 MG/DL (70-100); POTASSIUM SERUM 4.5 MEQ/L (3.5-5.1); SALICYLATE LEVEL 2.2 MG/DL (5.0-30.0); SODIUM LEVEL 138 MEQ/L (136-145); THYROID STIMULATING HORMONE 0.621 uIU/ML (0.358-3.740)
[2018-02-05] MEDS ORDERED: MOM 30ML SUSPENSION UDC PO (15:00)
[2018-02-05] MEDS ORDERED: MAALOX 30 ML SUSP *UDC PO (15:00)
[2018-02-06] MEDS: NICOTINE 21MG/24HR 1 EA TRANSDERMAL TD (09:00)
[2018-02-06] MEDS: BACTRIM 160MG/800MG DS TAB PO ×2 (09:58→20:54)
[2018-02-06] MEDS: METHADONE 10 MG TAB (S0109) PO ×3 (10:17→20:55)
[2018-02-06] MEDS: traZODone 50 MG TAB PO (20:55)
[2018-02-07] MEDS: BACTRIM 160MG/800MG DS TAB PO ×2 (10:26→21:02)
[2018-02-07] MEDS: NICOTINE 21MG/24HR 1 EA TRANSDERMAL TD (10:26)
[2018-02-07 10:41] LABS: HEPATITIS A ANTIBODY IGM NEGATIVE (NEGATIVE); HEPATITIS B CORE ANTIBODY IGM NEGATIVE (NEGATIVE); HEPATITIS B SURFACE ANTIGEN NEGATIVE (NEGATIVE); HIV 1&2 SCREEN CENTAUR NEGATIVE (NEGATIVE)
[2018-02-07 10:41] LABS: HEPATITIS C VIRUS ABY INDEX 0.1 INDEX (<0.8)
[2018-02-07] MEDS: LORazepam 1 MG TAB PO (11:17)
[2018-02-07] MEDS: cloNIDine 0.1 MG TAB PO ×2 (15:51→21:02)
[2018-02-07] MEDS ORDERED: LORazepam 1 MG TAB PO (16:00)
[2018-02-07] MEDS: diphenhydrAMINE 25 MG CAP PO (21:01)
[2018-02-07] MEDS: hydrOXYzine 50 MG TAB PO (21:01)
[2018-02-07] MEDS: traZODone 50 MG TAB PO (21:01)
[2018-02-08] MEDS: BACTRIM 160MG/800MG DS TAB PO ×2 (10:01→21:00)
[2018-02-08] MEDS: NICOTINE 21MG/24HR 1 EA TRANSDERMAL TD (10:01)
[2018-02-08] MEDS: cloNIDine 0.1 MG TAB PO ×3 (10:01→21:00)
[2018-02-08] MEDS: traZODone 50 MG TAB PO (23:19)
[2018-02-08] MEDS: diphenhydrAMINE 25 MG CAP PO (23:19)
[2018-02-09] MEDS: NICOTINE 21MG/24HR 1 EA TRANSDERMAL TD (09:00)
[2018-02-09] MEDS: BACTRIM 160MG/800MG DS TAB PO (09:00)
[2018-02-09] MEDS: cloNIDine 0.1 MG TAB PO (09:00)
== END 2018-02-09 13:45 | disposition home or self-care (01) | DRG 751 ==
LOC: M ED 11:07 → M ED INP 14:47 → M PSY 16:05
DX: F33.9 Major depressive disorder, recurrent, unspecified (principal); F15.259 Other stimulant dependence with stimulant-induced psychotic disorder, unspecified; F11.23 Opioid dependence with withdrawal; F17.210 Nicotine dependence, cigarettes, uncomplicated; F15.23 Other stimulant dependence with withdrawal

== ENCOUNTER 2018-02-13 14:53 | Inpatient (IN) | payer MEDICAID ==
[~2018-02-13] VITALS: Ht 165.1 cm; Wt 55.0 kg
[~2018-02-13 14:53] MED LIST changes: +ABIL10TA9 PO; +ABIL1TAB11 PO; +ABIL400I IM; +ACET500T15 PO; -ACET50TAOT PO; +ARIP5TA PO; +ATIV1TAB7 PO; +CLON-412 PO; +CLONI1TA PO; +DIVA500T94 PO; +GABA-843 PO; +HYDR50TA70 PO; +HYDRO50TAB PO; +NICO21PAT TD; +NICO2GUM8 PO; +SULF1TAB93 PO; +TRAZ-160 PO; +TRAZO50TA PO
[2018-02-13 18:11] LABS: HEMATOCRIT 45.8 % (42.0-52.0); HEMOGLOBIN 15.6 g/dl (13.5-17.5); MEAN CORPUSCULAR HEMOGLOBIN 30.5 pg (27.0-33.0); MEAN CORPUSCULAR HGB CONC 34.1 g/dl (32.0-36.5); MEAN CORPUSCULAR VOLUME 89.6 fl (80.0-96.0); PLATELET COUNT, AUTOMATED 404 10^3/uL (150-450); RED BLOOD COUNT 5.11 10^6/uL (4.30-6.10); WHITE BLOOD COUNT 8.6 10^3/uL (4.0-10.0)
[2018-02-13 18:21] LABS: ACETAMINOPHEN LEVEL < 2.0 UG/ML (10.0-30.0); ALT/SGPT 31 U/L (12-78); BILIRUBIN,DIRECT 0.2 MG/DL (0.0-0.2); BLOOD UREA NITROGEN 18 MG/DL (7-18); CALCIUM LEVEL 9.2 MG/DL (8.5-10.1); CARBON DIOXIDE LEVEL 27 MEQ/L (21-32); CHLORIDE LEVEL 104 MEQ/L (98-107); ETHYL ALCOHOL (ETHANOL) 0.005 % (0.000-0.010); GLOMERULAR FILTRATION RATE > 60.0 (>60); GLUCOSE, FASTING 71 MG/DL (70-100); POTASSIUM SERUM 4.2 MEQ/L (3.5-5.1); SALICYLATE LEVEL < 1.7 MG/DL (5.0-30.0); SODIUM LEVEL 139 MEQ/L (136-145); TOTAL PROTEIN 7.9 GM/DL (6.4-8.2)
[2018-02-13 18:49] LABS: AMPHETAMINES LEVEL URINE POSITIVE (NEGATIVE); BARBITURATES URINE NEGATIVE (NEGATIVE); BENZODIAZEPINES URINE NEGATIVE (NEGATIVE); CANNABINOIDS URINE NEGATIVE (NEGATIVE); COCAINE METABOLITE URINE NEGATIVE (NEGATIVE); METHADONE URINE POSITIVE (NEGATIVE); OPIATES URINE POSITIVE (NEGATIVE); PHENCYCLIDINE URINE NEGATIVE (NEGATIVE)
[2018-02-13] MEDS ORDERED: TRAZ25TA PO (19:20)
[2018-02-13] MEDS ORDERED: HYDRO50TAB PO (19:20)
[2018-02-13] MEDS ORDERED: BACT800T5 PO (19:20)
[2018-02-13] MEDS ORDERED: ATIV1TAB7 PO (19:20)
[2018-02-13] MEDS ORDERED: MAALOX 30 ML SUSP *UDC PO PRN (20:15)
[2018-02-13] MEDS ORDERED: traZODone 50 MG TAB PO PRN (20:15)
[2018-02-13] MEDS ORDERED: MOM 30ML SUSPENSION UDC PO PRN (20:15)
[2018-02-13] MEDS ORDERED: ACETAMINOPHEN TAB 650MG DOSE (2X325MG) PO PRN (20:15)
[2018-02-13 22:52] VITALS: BP 114/73
[2018-02-13] MEDS ORDERED: hydrOXYzine 50 MG TAB PO PRN (23:15)
[2018-02-14 06:24] VITALS: BP 120/75
--- NOTE | 2018-02-14 08:45 | HPEPDOC ---
[facility] Medical History & Physical Date of Admission Feb 13, 2018 History and Physical PCP: Dr Pemberton ATTENDING: Dr. Selena Torres HPI: 47yoM admitted to [facility] for MDD, being medically examined today. The pt states that he has been injecting methamphetamine and heroin. The patient is reporting discomfort at the right antecubital area at prior injection sites. There is no drainage. No erythema. Pt reports tenderness with palpation. No warmth. No streaking. Denies any fevers, chills, weakness, fatigue, SALAZAR, CP, SOB, cough, palpitations, abdominal pain, N/V/D or changes in bowel or bladder habits. 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 History of marijuana, cocaine, methamphetamine, heroin. Attended [place] in 2011. IV Drug Use: Methamphetamine Tattoos done unprofessionally: Denies FAMHX: Mother: , COPD Father: , [place] Siblings: Alive, well Children: Alive, well Unexpected deaths due to medical reasons: None. ROS: As noted in HPI, otherwise 11pt ROS of systems reviewed and unremarkable. PE: GEN: 47 yo M, appears stated age. Well-nourished, well developed. No acute distress. Alert and oriented x 3. Pleasant, interactive. HEENT: Normocephalic, atraumatic. Pupils are equal, round, and reactive to light. Extraocular movements are intact. No nystagmus appreciated. Sclera are nonicteric. Conjunctiva without injection. Nose midline. Nasal turbinates without bogginess. EACs both patent BL. TMs both visualized and gonzalez with good cone of light, no bulging or erythema. No facial asymmetry. Moist mucous membranes. Pharynx pink and moist, no cobblestoning. Neck supple, trachea midline. No lymphadenopathy or thyromegaly appreciated. CHEST: Regular rate and rhythm, +S1, +S2 LUNGS: Clear to auscultation bilaterally. No wheezes, rales, or rhonchi. Breathing appears symmetric and easy. Patient is speaking in full sentences. No accessory muscle use. ABD: Round, soft, non-tender, non-distended. +Bowel sounds throughout. No rebound or guarding. No costovertebral angle tenderness. EXT: Pulses 2+ bilaterally dorsalis pedis and radial. No lower extremity edema appreciated. There is no calf tenderness, warmth, erythema or cording noted. SKIN: [place], dry, warm. No rashes. Multiple injection sites are noted at the bilateral forearms and antecubital areas, mild tenderness is noted at the right antecubital area with approximate 2 cm firm nodule however no erythema, drainage, streaking, warmth. No other areas of tenderness, streaking, edema, erythema, drainage noted. NEURO: Alert and oriented x 3. Cranial nerves III-XII are intact. No focal deficits appreciated. EKG: SINUS RHYTHM PROBABLE INFERIOR MYOCARDIAL INFARCTION, OF INDETERMINATE AGE LOW VOLTAGE SIMILAR 08/03/17 Electronically Signed On 01-09-2018 13:40:30 EST by Dori Tran RUE U/S No evidence of deep venous thrombosis of the right upper extremity deep vein system. Electronically Signed by Odilon Gonzalez MD 02/05/2018 01:46 P RUE U/S 02/14 pending. A&P: 47yoM admitted to [facility] for unspecified depressive disorder, 1. Psych. Plan per Psychiatry. EKG on file. 2. Nicotine dependence. Patch available. 3. History of IVDU. HIV and hepatitis screening completed 02/07/18. 4. Follow up with PCP on discharge. 5. Substance use. Management per psychiatry. 6. Multiple injection sites bilateral forearms. There is an area of tenderness at the right antecubital area. Ultrasound pending. There is no drainage, erythema, or fluctuance currently. Pt is currently on Bactrim DS one tablet by mouth twice a day, will continue. Monitor. 7. Staff member Reg present throughout exam. Addendum. RUE U/S reviewed. 1.1cm fluid collection hematoma, seroma, vs abscess. Continue with po Bactrim. Apply warm compress to Rt antecubital area. Clt general surgery, Dr Prasad, for opinion. Any further recommendations. Spoke with Dr Prasad who will see pt. Vital Signs Vital Signs Date Time Temp Pulse Resp B/P (MAP) Pulse Ox O2 Delivery O2 Flow Rate FiO2 02/14/18 06:24 99.6 68 16 120/75 (90) Room Air 02/13/18 21:45 100 Laboratory Data Labs 24H Laboratory Tests 2 02/13/18 15:43: Nucleated Red Blood Cells % (auto) 0.0, Anion Gap 8, Glomerular Filtration Rate > 60.0, Calcium Level 9.2, Aspartate Amino Transf (AST/SGOT) 27, Alanine Aminotransferase (ALT/SGPT) 31, Alkaline Phosphatase 104, Total Bilirubin 1.0, Direct Bilirubin 0.2, Total Protein 7.9, Albumin 4.0, Albumin/Globulin Ratio 1.03, Thyroid Stimulating Hormone (TSH) 1.520, Salicylates Level < 1.7L, Urine Amphetamines Screen POSITIVEH, Urine Benzodiazepines Screen NEGATIVE, Urine Opiates Screen POSITIVEH, Urine Methadone Screen POSITIVEH, Acetaminophen Level < 2.0L, Urine Barbiturates Screen NEGATIVE, Urine Phencyclidine Screen NEGATIVE, Urine Cocaine Metabolite Screen NEGATIVE, Urine Cannabinoids Screen NEGATIVE, Ethyl Alcohol Level 0.005 CBC/BMP Laboratory Tests 02/13/18 15:43 Red Blood Count 5.11, Mean Corpuscular Volume 89.6, Mean Corpuscular Hemoglobin 30.5, Mean Corpuscular Hemoglobin Concent 34.1, Red Cell Distribution Width 12.4 Home Medications Scheduled Trimethoprim/Sulfamethoxazole (Bactrim Ds 800-160 mg) 1 Tab Tab, 1 TAB PO BID for ANTIBIOTIC Scheduled PRN Hydroxyzine HCl (Hydroxyzine HCl) 50 Mg Tab, 50 MG PO Q6H PRN for ANXIETY /AGITATION Lorazepam (Ativan) 1 Mg Tab, 1 MG PO BID PRN for ANXIETY/AGITATION Trazodone HCl (Trazodone HCl) 50 Mg Tab, 25 MG PO QHS PRN for INSOMNIA Allergies Coded Allergies: No Known Allergies (Unverified , 01/09/18) Jerica Holt Feb 14, 2018 08:45
[2018-02-14] MEDS ORDERED: METHADONE 5 MG TAB (S0109) PO SCH (09:00)
[2018-02-14] MEDS: BACTRIM 160MG/800MG DS TAB PO SCH ×2 (09:29→21:42)
[2018-02-14] MEDS: NICOTINE 21MG/24HR 1 EA TRANSDERMAL TD SCH (09:30)
[2018-02-14 12:25] VITALS: BP 118/71
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
--- NOTE | 2018-02-14 13:49 | REP ---
Right upper extremity duplex venous ultrasound: History: Pain and tenderness at the right antecubital injection sites. Question venous thrombosis. Comparison study February 05, 2018. Findings: The right internal jugular, axillary, brachial, basilic veins are anechoic and compressible in the left upper extremity. The right cephalic vein could not be seen. Color flow imaging is homogeneous. Spectral Doppler interrogation is unremarkable. There is no evidence of right upper extremity venous thrombosis. Scanning in the antecubital medial region of the arm demonstrates a 1.1 x 0.9 x 0.5 cm complex fluid collection with adjacent hyperemic flow consistent with abscess or hematoma or seroma. Impression: 1.1 cm complex fluid collection in the antecubital fossa at the injection site may be hematoma seroma or early subcutaneous abscess. Otherwise negative right upper extremity duplex venous ultrasound. No evidence of venous thrombosis. Electronically Signed by Shane Medina MD 02/14/2018 01:41 P
[2018-02-14] MEDS: METHADONE 5 MG TAB (S0109) PO SCH ×2 (16:11→21:44)
[2018-02-14 18:00] VITALS: BP 117/66
[2018-02-15 06:28] VITALS: BP 110/65
--- NOTE | 2018-02-15 09:21 | IPNPDOC ---
Date Seen The patient was seen on 02/15/18. Progress Note PCP: Dr Pemberton ATTENDING: Dr. Selena Torres HPI: 47yoM admitted to [facility] for MDD, being medically examined today. The pt states that he has been injecting methamphetamine and heroin. The patient is reporting discomfort at the right antecubital area at prior injection sites. There is no drainage. Pt reports tenderness with palpation. No streaking. Following up with Pt re Rt antecubital U/S findings re fluid collection at previous injection site. The pt reports he continues to have tenderness at the right antecubital area. This a.m. mild erythema is noted surrounding the area as well as mild warmth. Ultrasound results were reviewed yesterday, Dr. Prasad Gen. surgery was consulted for any further recommendations. The patient states that Dr. Prasad saw him this morning and plans to proceed with I&D today or tomorrow. Denies any fevers, chills, weakness, fatigue, SALAZAR, CP, SOB, cough, palpitations, abdominal pain, N/V/D or changes in bowel or bladder habits. PMHx: Anxiety Depression Polysubstance use IVDU Bipolar disorder PSHX: Appendectomy PE: GEN: 47 yo M, appears stated age. No acute distress. Alert and oriented x 3. Pleasant, interactive. HEENT: Normocephalic, atraumatic. Sclera are nonicteric. Conjunctiva without injection. Moist mucous membranes. CHEST: Regular rate and rhythm, +S1, +S2 LUNGS: Clear to auscultation bilaterally. No wheezes, rales, or rhonchi. ABD: Round, soft, non-tender, non-distended. +Bowel sounds throughout. EXT: No lower extremity edema appreciated. SKIN: [place], dry, warm. Multiple injection sites are noted at the bilateral forearms and antecubital areas, tenderness is noted at the right antecubital area with approximate 1-2 cm firm nodule with mild erythema and warmth noted today, currently no drainage, streaking. No other areas of tenderness, streaking, edema, erythema, drainage noted. NEURO: Alert and oriented x 3. Cranial nerves III-XII are intact. No focal deficits appreciated. EKG: SINUS RHYTHM PROBABLE INFERIOR MYOCARDIAL INFARCTION, OF INDETERMINATE AGE LOW VOLTAGE SIMILAR 08/03/17 Electronically Signed On 01-09-2018 13:40:30 EST by Dori JIMENEZ U/S No evidence of deep venous thrombosis of the right upper extremity deep vein system. Electronically Signed by Odilon Gonzalez MD 02/05/2018 01:46 P RUE U/S 02/14. 1.1 cm complex fluid collection in the antecubital fossa at the injection site may be hematoma seroma or early subcutaneous abscess. Otherwise negative right upper extremity duplex venous ultrasound. No evidence of venous thrombosis. Electronically Signed by Shane Medina MD 02/14/2018 01:41 P A&P: 47yoM admitted to [facility] for unspecified depressive disorder, 1. Psych. Plan per Psychiatry. EKG on file. 2. Nicotine dependence. Patch available. 3. History of IVDU. HIV and hepatitis screening completed 02/07/18. 4. Follow up with PCP on discharge. 5. Substance use. Management per psychiatry. 6. Multiple injection sites bilateral forearms. With 1.1 cm fluid collection noted at the right antecubital area. The right antecubital area remains tender with palpation with mild warmth and erythema noted today. Ultrasound as above. Gen. surgery, Dr Prasad, is consulted for further recommendations. As per patient possibly proceeding with I&D today or tomorrow. Continue Bactrim DS one tablet by mouth twice a day, will continue. Monitor. 7. Staff member Bill present throughout exam. VS, I&O, 24H, Fishbone Vital Signs/I&O Vital Signs Date Time Temp Pulse Resp B/P (MAP) Pulse Ox O2 Delivery O2 Flow Rate FiO2 02/15/18 06:28 98.4 53 14 110/65 (80) Room Air 02/13/18 21:45 100 Jerica Holt Feb 15, 2018 09:21
[2018-02-15] MEDS: METHADONE 5 MG TAB (S0109) PO SCH ×2 (09:47→23:28)
[2018-02-15] MEDS: NICOTINE 21MG/24HR 1 EA TRANSDERMAL TD SCH (09:47)
[2018-02-15] MEDS: BACTRIM 160MG/800MG DS TAB PO SCH ×2 (09:47→23:29)
[2018-02-15 11:53] VITALS: BP 102/57
[2018-02-15 18:00] VITALS: BP 124/59
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
[2018-02-15] MEDS: QUEtiapine FUMARATE 100 MG TAB PO SCH (23:28)
[2018-02-16 06:54] VITALS: BP 97/58
--- NOTE | 2018-02-16 08:27 | IPNPDOC ---
Date Seen The patient was seen on 02/16/18. Progress Note PCP: Dr Pemberton ATTENDING: Dr. Selena Torres HPI: 47yoM admitted to [facility] for MDD, being medically examined today. The pt states that he has been injecting methamphetamine and heroin. The patient is reporting discomfort at the right antecubital area at prior injection sites. There is no drainage. Pt reports tenderness with palpation. No streaking. Following up with Pt re Rt antecubital U/S findings re fluid collection at previous injection site. The pt reports tenderness significantly improved at the right antecubital area. This AM there is no warmth, no TTP, no erythema and swelling at the site has decreased. Ultrasound results were reviewed, Dr. Prasad Gen. surgery was consulted for any further recommendations. No note available at this time. The patient states that Dr. Prasad saw him 02/15/18 and planned to proceed with I&D. Denies any fevers, chills, weakness, fatigue, SALAZAR, CP, SOB, cough, palpitations, abdominal pain, N/V/D or changes in bowel or bladder habits. PMHx: Anxiety Depression Polysubstance use IVDU Bipolar disorder PSHX: Appendectomy PE: GEN: 47 yo M, appears stated age. No acute distress. Alert and oriented x 3. Pleasant, interactive. HEENT: Normocephalic, atraumatic. Sclera are nonicteric. Conjunctiva without injection. Moist mucous membranes. CHEST: Regular rate and rhythm, +S1, +S2 LUNGS: Clear to auscultation bilaterally. No wheezes, rales, or rhonchi. ABD: Round, soft, non-tender, non-distended. +Bowel sounds throughout. EXT: No lower extremity edema appreciated. SKIN: [place], dry, warm. Multiple injection sites are noted at the bilateral forearms and antecubital areas, no TTP or erythema right antecubital area and the firm nodule has decreased in size, currently no drainage, streaking. No other areas of tenderness, streaking, edema, erythema, drainage noted. NEURO: Alert and oriented x 3. Cranial nerves III-XII are intact. No focal deficits appreciated. EKG: SINUS RHYTHM PROBABLE INFERIOR MYOCARDIAL INFARCTION, OF INDETERMINATE AGE LOW VOLTAGE SIMILAR 08/03/17 Electronically Signed On 01-09-2018 13:40:30 EST by Dori Islas-Thomas RUE U/S No evidence of deep venous thrombosis of the right upper extremity deep vein system. Electronically Signed by Odilon Gonzalez MD 02/05/2018 01:46 P RUE U/S 02/14. 1.1 cm complex fluid collection in the antecubital fossa at the injection site may be hematoma seroma or early subcutaneous abscess. Otherwise negative right upper extremity duplex venous ultrasound. No evidence of venous thrombosis. Electronically Signed by Shane Medina MD 02/14/2018 01:41 P A&P: 47yoM admitted to [facility] for unspecified depressive disorder, 1. Psych. Plan per Psychiatry. EKG on file. 2. Nicotine dependence. Patch available. 3. History of IVDU. HIV and hepatitis screening completed 02/07/18. 4. Follow up with PCP on discharge. 5. Substance use. Management per psychiatry. 6. Multiple injection sites bilateral forearms. With 1.1 cm fluid collection noted at the right antecubital area as per U/S. The right antecubital area appears improved today. Decreased edema at the site and no TTP or erythema. Ultrasound as above. Gen. surgery, Dr Prasad, is consulted for any further recommendations. Note pending. Continue Bactrim DS one tablet by mouth twice a day, will continue. Appears to be improving. Continue warm compress. Monitor. 7. Staff member Reg present throughout exam. VS, I&O, 24H, Fishbone Vital Signs/I&O Vital Signs Date Time Temp Pulse Resp B/P (MAP) Pulse Ox O2 Delivery O2 Flow Rate FiO2 02/16/18 06:54 97.9 61 14 97/58 (71) 02/15/18 06:28 Room Air 02/13/18 21:45 100 Jerica Holt Feb 16, 2018 08:27
[2018-02-16] MEDS ORDERED: METHADONE 5 MG TAB (S0109) PO SCH (09:00)
[2018-02-16] MEDS: NICOTINE 21MG/24HR 1 EA TRANSDERMAL TD SCH (09:39)
[2018-02-16] MEDS: BACTRIM 160MG/800MG DS TAB PO SCH ×2 (09:39→21:02)
[2018-02-16] MEDS: QUEtiapine FUMARATE 100 MG TAB PO SCH ×2 (09:39→21:02)
--- NOTE | 2018-02-16 15:09 | IPN ---
DATE: 02/16/2018 HISTORY: The patient was seen yesterday with a small nodule in the right antecubital fossa to consider drainage of what could be a small hematoma versus an abscess. VITAL SIGNS: Show that he has been afebrile with a pulse in the 50s and 60s and good blood pressure. The physical exam shows that the nodule seems a little less prominent today. There is still an area of induration but it is not quite so raised. The area is nontender and not red. The patient believes it is improving. IMPRESSION: Reduced prominence of the small nodule in the right antecubital fossa. PLAN: The patient and I discussed this and will not proceed with drainage at this time. If this becomes painful again or more raised or red then incision and drainage would certainly be called for. STAN
--- NOTE | 2018-02-16 15:09 | CR ---
DATE OF CONSULTATION: 02/15/2018 REASON FOR CONSULTATION: Raised nodule, right antecubital fossa. HISTORY OF PRESENT ILLNESS: The patient is a 47-year-old man admitted to the inpatient mental health unit for treatment of depression. He apparently has had some recent intravenous drug use involving some injections in the right antecubital fossa. He developed a raised nodule in the right antecubital fossa which was tender and red. This was noted during a prior hospitalization extending from 02/05/2018 to 02/09/2018. During that stay, he was placed on Bactrim double-strength one tablet twice a day. He was subsequently discharged and then re-admitted on 02/14/2018. He was noted to have a persistent raised nodule in the midportion of the right antecubital fossa. His Bactrim was continued and I have been asked to evaluate the patient regarding the need for any incision and drainage. The patient reports that it is not tender like it was before and has improved. PHYSICAL EXAMINATION: Shows a thin male in no obvious distress. He was cooperative. Examination is limited to his right upper extremity. He has a small nodule about a centimeter in diameter at the medial portion of the antecubital fossa. This appears to be just to the right of a vein. It is somewhat firm. There is some minimal tenderness after palpation. It is not definitely fluctuant. There is no overlying wound apparent and no drainage from the area. There is no definite redness. IMAGING STUDIES: The patient had an ultrasound of this area that showed a 1.1 cm maximally mixed density collection which the radiologist felt could represent hematoma or abscess or seroma. IMPRESSION: Small nodule, right antecubital fossa, possible abscess versus hematoma from injections. PLAN: The patient and I discussed the option of drainage versus continued nonoperative management. I will check back with him in the morning to see how this is doing and can drain it at that time if necessary. STAN
[2018-02-16 18:00] VITALS: BP 122/78
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
[2018-02-17 06:51] VITALS: BP 95/59
[2018-02-17] MEDS: NICOTINE 21MG/24HR 1 EA TRANSDERMAL TD SCH (09:00)
[2018-02-17] MEDS: BACTRIM 160MG/800MG DS TAB PO SCH ×2 (09:25→21:17)
[2018-02-17] MEDS: QUEtiapine FUMARATE 100 MG TAB PO SCH ×2 (09:25→21:17)
--- NOTE | 2018-02-17 12:14 | MHIPNPDOC ---
[facility] Progress Note Progress Note DATE OF SERVICE: 02/17/18 HISTORY: Pt states he was supposed to go to [facility] this morning, but the cab didn't show up. PT states he has been using 10-15 bags of heroin daily, 3-4 grams of methamphetamine daily since d/c from [facility] on 02-09-18. PT states he is homicidal toward people he was staying with because they stole the flag from his father's , tore up all of the pictures he had of his parents. Pt states he is homeless, states he will find the people who took his things and "fuck them up". Pt is not able to CFS for others' safety, also reports that he is afraid he will overdose if he is discharged. Chief Complaint: Pt reports being homicidal, has also been abusing heroin and meth. VITAL SIGNS: See below. NEW TEST RESULTS: As per Dr. Torres: "The pt states that he has been injecting methamphetamine and heroin. The patient is reporting discomfort at the right antecubital area at prior injection sites. There is no drainage. Pt reports tenderness with palpation. No streaking. Following up with Pt re Rt antecubital U/S findings re fluid collection at previous injection site. The pt reports tenderness significantly improved at the right antecubital area. This AM there is no warmth, no TTP, no erythema and swelling at the site has decreased. Ultrasound results were reviewed, Dr. Prasad Gen. surgery was consulted for any further recommendations. No note available at this time. The patient states that Dr. Prasad saw him 02/15/18 and planned to proceed with I&D." As per Dr. Prasad evaluation: " VITAL SIGNS: Show that he has been afebrile with a pulse in the 50s and 60s and good blood pressure. The physical exam shows that the nodules seems a little less prominent today. There is still an area of induration but it is not quite so raised. The area is nontender and not red. The patient believes it is improving." IMPRESSION: Reduced prominence of the small nodule in the right antecubital fossa. PLAN: The patient and I discussed this and will not proceed with drainage at this time. If this becomes painful again or more raise or red than incision and drainage would certainly be called for." CURRENT MEDICATIONS: See below. MENTAL STATUS EXAMINATION: Patient is a 47-year old male, who continues to lay in bed all day long. Speech: Is loud, imperative, normal tone. Language skills are good Thought processes including: Intact. Thought content: Angry thoughts, paranoid thoughts Description of abnormal or psychotic thoughts: Denies SI/ denies HI, denies AV hallucinations, denies thought delusions but he seems to be paranoid Judgment: Poor. Insight: Poor. Orientation: 3. Recent and remote memory: Limited, sometimes he can't remember certain events that took place while he was under the influence. Attention span and concentration: Limited. Language: Limited, impoverished, frequently uses foul language. Fund of knowledge: Below average. Mood: Aggressive, defensive, irritable. Affect: Congruent with mood. DIAGNOSES: 1. Bipolar disorder, manic episode 2. Substance induced mood disorder 3. Polysubstance use disorder 4. Cluster B personality disorder (antisocialborderline) ASSESSMENT: The patient has been evaluated by Dr Torres and a surgeon because he has has a mass on the right antecubital fossa but apparently it is not an hematoma, it is a collection of fluid. They didn't think it was the right time to drain it unless it continued to give problems or to grow. Patient is leaving Monday morning for inpatient Rehab treatment center. The patient continues to be in his room, he is not interacting with staff or roommate, he is not happy, becomes easily irritated. MANAGEMENT PLAN: Will continue with the same treatment plan. Seroquel will help him with impulsivity and anger. TIME SPENT: 15 minutes. Vital Signs Vital Signs Date Time Temp Pulse Resp B/P (MAP) Pulse Ox O2 Delivery O2 Flow Rate FiO2 02/17/18 06:51 97.3 60 14 95/59 (71) 02/15/18 06:28 Room Air 02/13/18 21:45 100 Current Medications Current Medications Acetaminophen (Tylenol Tab) 650 mg Q6HP PRN PO HEADACHE or DISCOMFORT; Start 02/13/18 at 20:15 Al Hydrox/Mg Hydrox/Simethicone (Mylanta) 30 ml Q4HP PRN PO HEARTBURN/INDIGESTION; Start 02/13/18 at 20:15 Home Med (Med Rec Complete!) ASDIRECTED XX ; Start 02/13/18 at 19:30; Stop 02/13/18 at 19:30; Status DC Hydroxyzine HCl (Atarax) 50 mg Q6HP PRN PO ANXIETY/AGITATION Last administered on 02/14/18at 12:15; Start 02/13/18 at 23:15; Stop 02/16/18 at 11:04; Status DC Magnesium Hydroxide (Milk Of Magnesia) 30 ml DAILYPRN PRN PO CONSTIPATION; Start 02/13/18 at 20:15 Methadone HCl (Dolophine) 5 mg BID PO Last administered on 02/15/18at 23:28; Start 02/15/18 at 09:00; Stop 02/15/18 at 21:01; Status DC Methadone HCl (Dolophine) 5 mg DAILY PO Last administered on 02/14/18at 09:33; Start 02/14/18 at 09:00; Stop 02/14/18 at 13:34; Status DC Methadone HCl (Dolophine) 5 mg DAILY PO Last administered on 02/16/18at 09:40; Start 02/16/18 at 09:00; Stop 02/16/18 at 09:01; Status DC Methadone HCl (Dolophine) 5 mg TID PO Last administered on 02/14/18at 21:44; Start 02/14/18 at 16:00; Stop 02/14/18 at 21:01; Status DC Nicotine (Nicoderm Cq 21mg) 1 patch DAILY TD Last administered on 02/16/18at 09:39; Start 02/14/18 at 09:00 Quetiapine Fumarate (SEROquel) 100 mg BID PO Last administered on 02/17/18at 09:25; Start 02/15/18 at 21:00 Trazodone HCl (Desyrel) 50 mg QHSP PRN PO INSOMNIA; Start 02/13/18 at 20:15 Trimethoprim/ Sulfamethoxazole (Bactrim Ds, Septra Ds 160mg/ 800mg) 1 tab BID PO Last administered on 02/17/18at 09:25; Start 02/14/18 at 09:00 Allergies Coded Allergies: No Known Allergies (Unverified , 01/09/18) TING SWEENEY MD Feb 17, 2018 12:06
[2018-02-17 18:04] VITALS: BP 105/65
[2018-02-18 07:03] VITALS: BP 96/59
[2018-02-18] MEDS: NICOTINE 21MG/24HR 1 EA TRANSDERMAL TD SCH (09:00)
[2018-02-18] MEDS: BACTRIM 160MG/800MG DS TAB PO SCH ×2 (09:00→21:00)
[2018-02-18] MEDS: QUEtiapine FUMARATE 100 MG TAB PO SCH ×2 (09:00→21:00)
[2018-02-18] MEDS ORDERED: SULF1TAB93 PO (16:51)
[2018-02-18] MEDS ORDERED: QUET1TAB8 PO (16:51)
[2018-02-18] MEDS ORDERED: NICO21PAT TD (16:51)
[2018-02-18] MEDS ORDERED: TRAZO50TA PO (16:51)
[2018-02-18 18:00] VITALS: BP 119/81
[2018-02-19 06:56] VITALS: BP 130/77
[2018-02-19] MEDS: QUEtiapine FUMARATE 100 MG TAB PO SCH (09:00)
[2018-02-19] MEDS: BACTRIM 160MG/800MG DS TAB PO SCH (09:00)
[2018-02-19] MEDS: NICOTINE 21MG/24HR 1 EA TRANSDERMAL TD SCH (09:00)
--- NOTE | 2018-02-26 01:05 | MHDSPDOC ---
[facility] Discharge Summary Discharge Summary DATE OF ADMISSION: Feb 13, 2018 at 20:09 DATE OF DISCHARGE: Feb 19, 2018 at 08:20 DISCHARGE DIAGNOSES: 1. Bipolar disorder, manic episode 2. Substance induced mood disorder 3. Polysubstance use disorder 4. Cluster B personality disorder (antisocialborderline) REASON FOR ADMISSION: CHIEF COMPLAINT: Suicidal and homicidal ideation HISTORY OF PRESENT ILLNESS: As per ED report: "Pt states he was supposed to go to [facility] this morning, but the cab didn't show up. PT states he has been using 10-15 bags of heroin daily, 3-4 grams of methamphetamine daily since d/c from [facility] on 02-09-18. PT states he is homicidal toward people he was staying with because they stole the flag from his father's , tore up all of the pictures he had of his parents. Pt states he is homeless, states he will find the people who took his things and "fuck them up". Pt is not able to CFS for others' safety, also reports that he is afraid he will overdose if he is discharged". CONSULTANTS INVOLVED: Evaluated by Dr. Prasad for elevated nodule on the antecubital fossa, thought to be a hematoma or maybe an abscess. Patient was started on antibiotics. TREATMENT AND PROGRESS ON THE UNIT : Patient was extremely angry and aggressive, he was labile. He was uncooperative and he remained in bed all the time. He demanded to be on methadone, whereas on his previous hospitalization he had refused to take it saying it was making him more ill. This time he said he wanted to go to Rehab, bed to bed. A bed was available at [facility] and he was transferred on the 17 HOSPITAL COURSE: As above DISCHARGE ASSESSMENT: Not suicidal, not homicidal, not psychotic at the time of his discharge MENTAL STATUS EXAMINATION ON DISCHARGE: Patient is a 47-year old male, who continues to lay in bed for most of the day Speech: Is less loud, normal rate and tone Language skills are good Thought processes including: Intact. Thought content: Less angry and paranoid thoughts, he has anxious thoughts Description of abnormal or psychotic thoughts: Denies SI/ denies HI, denies AV hallucinations, denies thought delusions but he seems to be paranoid Judgment: Poor. Insight: Poor. Orientation: 3. Recent and remote memory: Limited Attention span and concentration: Limited. Language: Far Fund of knowledge: fair Mood: less irritable Affect: Congruent with mood. MEDICATIONS ON DISCHARGE: Scheduled Nicotine (Nicotine Transdermal Syst) 21 Mg/24 Hr Dis, 1 PATCH TD DAILY for nicotine withdrawls, #7 Quetiapine Fumerate (Quetiapine Fumarate) 100 Mg Tab, 100 MG PO BID for mood, #14 Trimethoprim/Sulfamethoxazole (Bactrim Ds 800-160 mg) 1 Tab Tab, 1 TAB PO BID for ANTIBIOTIC, (Reported) Trimethoprim/Sulfamethoxazole (Smz-Tmp Ds 800-160 mg) 1 Tab Tab, 1 TAB PO BID for soft tissue infection, #20 Scheduled PRN Hydroxyzine HCl (Hydroxyzine HCl) 50 Mg Tab, 50 MG PO Q6H PRN for ANXIETY/AGITATION, (Reported) Trazodone HCl (Trazodone HCl) 50 Mg Tab, 50 MG PO QHSP PRN for INSOMNIA, #7 PLAN/FOLLOWUP ARRANGEMENTS: Contact * Tx Team Topic of Contact * Tx Plan Review Contact Notes * Pt reviewed in tx team. Pt exhibits no aggression, thoughts of self harm, plans to attend inpt rehab. Pt discharged to report to [facility] today. See [facility] for details. Discharge Plan Status * Final Discharge Date * Feb 19, 2018 If other, please clarify where * Rehab - [facility] The amount of time spent in the coordination of care for this patient was appr oximately 30 minutes. Medications Scheduled Nicotine (Nicotine Transdermal Syst) 21 Mg/24 Hr Dis, 1 PATCH TD DAILY for nicotine withdrawls, #7 Quetiapine Fumerate (Quetiapine Fumarate) 100 Mg Tab, 100 MG PO BID for mood, #14 Trimethoprim/Sulfamethoxazole (Bactrim Ds 800-160 mg) 1 Tab Tab, 1 TAB PO BID for ANTIBIOTIC, (Reported) Trimethoprim/Sulfamethoxazole (Smz-Tmp Ds 800-160 mg) 1 Tab Tab, 1 TAB PO BID for soft tissue infection, #20 Scheduled PRN Hydroxyzine HCl (Hydroxyzine HCl) 50 Mg Tab, 50 MG PO Q6H PRN for ANXIETY/AGITATION, (Reported) Trazodone HCl (Trazodone HCl) 50 Mg Tab, 50 MG PO QHSP PRN for INSOMNIA, #7 Allergies Coded Allergies: No Known Allergies (Unverified , 01/09/18) TING SWEENEY MD Feb 26, 2018 00:57
== END 2018-02-19 08:20 | DRG 753 ==
LOC: M ED 14:53 → M ED INP 20:09 → M PSY 22:13
PROVIDERS: ADMIT Psychiatry & Neurology Psychiatry; ATTEND Psychiatry & Neurology Psychiatry
DX: F31.9 Bipolar disorder, unspecified (principal); F60.3 Borderline personality disorder; F11.14 Opioid abuse with opioid-induced mood disorder; F12.10 Cannabis abuse, uncomplicated; F15.14 Other stimulant abuse with stimulant-induced mood disorder; F60.2 Antisocial personality disorder; L02.413 Cutaneous abscess of right upper limb; F17.210 Nicotine dependence, cigarettes, uncomplicated

== ENCOUNTER 2018-02-26 15:22 | Inpatient (IN) | payer MEDICAID ==
[~2018-02-26] VITALS: Ht 165.1 cm; Wt 58.1 kg
[~2018-02-26 15:22] MED LIST changes: +BACT800T5 PO; +QUET1TAB8 PO; +TRAZ25TA PO
[2018-02-26] MEDS ORDERED: DIVA500T94 PO (15:29)
[2018-02-26] MEDS ORDERED: GABA-843 PO (15:29)
[2018-02-26] MEDS ORDERED: BACT800T5 PO (16:13)
[2018-02-26] MEDS ORDERED: TRAZO50TA PO (16:13)
[2018-02-26] MEDS ORDERED: PANT40TA3 PO (16:13)
[2018-02-26] MEDS ORDERED: NICO21PAT TD (16:13)
[2018-02-26 16:54] LABS: HEMATOCRIT 43.7 % (42.0-52.0); MEAN CORPUSCULAR HEMOGLOBIN 30.7 pg (27.0-33.0); MEAN CORPUSCULAR HGB CONC 34.3 g/dl (32.0-36.5); MEAN CORPUSCULAR VOLUME 89.4 fl (80.0-96.0); PLATELET COUNT, AUTOMATED 428 10^3/uL (150-450); RED BLOOD COUNT 4.89 10^6/uL (4.30-6.10)
[2018-02-26 17:20] LABS: AMPHETAMINES LEVEL URINE POSITIVE (NEGATIVE); BARBITURATES URINE NEGATIVE (NEGATIVE); BENZODIAZEPINES URINE NEGATIVE (NEGATIVE); CANNABINOIDS URINE NEGATIVE (NEGATIVE); COCAINE METABOLITE URINE NEGATIVE (NEGATIVE); METHADONE URINE NEGATIVE (NEGATIVE); OPIATES URINE NEGATIVE (NEGATIVE); PHENCYCLIDINE URINE NEGATIVE (NEGATIVE)
[2018-02-26 17:37] LABS: ACETAMINOPHEN LEVEL < 2.0 UG/ML (10.0-30.0); ALBUMIN 3.8 GM/DL (3.2-5.2); ALT/SGPT 39 U/L (12-78); BILIRUBIN,DIRECT 0.3 MG/DL (0.0-0.2); BILIRUBIN,TOTAL 1.1 MG/DL (0.2-1.0); BLOOD UREA NITROGEN 26 MG/DL (7-18); CALCIUM LEVEL 9.2 MG/DL (8.5-10.1); CARBON DIOXIDE LEVEL 28 MEQ/L (21-32); CHLORIDE LEVEL 106 MEQ/L (98-107); CREATININE FOR GFR 1.24 MG/DL (0.70-1.30); ETHYL ALCOHOL (ETHANOL) < 0.003 % (0.000-0.010); GLOMERULAR FILTRATION RATE > 60.0 (>60); GLUCOSE, FASTING 91 MG/DL (70-100); POTASSIUM SERUM 4.4 MEQ/L (3.5-5.1); SALICYLATE LEVEL < 1.7 MG/DL (5.0-30.0); SODIUM LEVEL 142 MEQ/L (136-145); THYROID STIMULATING HORMONE 0.925 uIU/ML (0.358-3.740); TOTAL PROTEIN 7.5 GM/DL (6.4-8.2)
[2018-02-26] MEDS ORDERED: ACETAMINOPHEN TAB 650MG DOSE (2X325MG) PO PRN (18:00)
[2018-02-26] MEDS ORDERED: hydrOXYzine 50 MG TAB PO PRN (18:00)
[2018-02-26] MEDS ORDERED: MOM 30ML SUSPENSION UDC PO PRN (18:00)
[2018-02-26] MEDS ORDERED: MAALOX 30 ML SUSP *UDC PO PRN (18:00)
[2018-02-26 19:01] VITALS: BP 109/71
[2018-02-26] MEDS: NICOTINE 21MG/24HR 1 EA TRANSDERMAL TD SCH (22:00)
[2018-02-26] MEDS: GABAPENTIN 300 MG CAP PO SCH (22:39)
[2018-02-26] MEDS: BACTRIM 160MG/800MG DS TAB PO SCH (22:39)
[2018-02-26] MEDS: DIVALPROEX 500 MG TAB PO SCH (22:39)
[2018-02-27 06:09] VITALS: BP 116/82
[2018-02-27] MEDS: NICOTINE 21MG/24HR 1 EA TRANSDERMAL TD SCH (09:00)
[2018-02-27] MEDS: PANTOPRAZOLE 40MG TAB (PROTONIX) PO SCH (09:07)
[2018-02-27] MEDS: GABAPENTIN 300 MG CAP PO SCH ×3 (09:08→21:15)
[2018-02-27] MEDS: BACTRIM 160MG/800MG DS TAB PO SCH ×2 (09:08→21:15)
[2018-02-27] MEDS: OLANZapine ORAL DISINTEGRATING TAB 5MG PO PRN (12:40)
[2018-02-27 18:00] VITALS: BP 94/56
[2018-02-27] MEDS: DIVALPROEX 500 MG TAB PO SCH (21:15)
[2018-02-28 06:29] VITALS: BP 114/66
[2018-02-28] MEDS: NICOTINE 21MG/24HR 1 EA TRANSDERMAL TD SCH (09:00)
[2018-02-28] MEDS: PANTOPRAZOLE 40MG TAB (PROTONIX) PO SCH (09:28)
[2018-02-28] MEDS: BACTRIM 160MG/800MG DS TAB PO SCH ×2 (09:28→21:00)
[2018-02-28] MEDS: GABAPENTIN 300 MG CAP PO SCH ×3 (09:28→21:00)
[2018-02-28] MEDS: OLANZapine ORAL DISINTEGRATING TAB 5MG PO PRN (11:53)
[2018-02-28 18:17] VITALS: BP 98/56
[2018-02-28] MEDS: DIVALPROEX 500 MG TAB PO SCH (21:00)
[2018-02-28] MEDS: traZODone 50 MG TAB PO PRN (21:01)
[2018-03-01 06:52] VITALS: BP 112/75
--- NOTE | 2018-03-01 08:54 | MHIPN ---
DATE: 02/28/2018 SUBJECTIVE: "I don't like anybody coming near me." "I was seen by another doctor yesterday." OBJECTIVE: He is a 47-year-old male with a history of mood disorder and polysubstance use disorder, who was admitted because of suicidal thoughts. The patient has been hospitalized multiple times in the last 2 months and he has noncompliance with the followup plan. He went to the emergency room and within 1 day he came out from there and was readmitted. Currently, he is angry, irritable, uncooperative. MENTAL STATUS EXAMINATION: Casually dressed, lying in his bed, irritable, uncooperative. Makes poor eye contact. Psychomotor activity is increased. Speech rate, rhythm and volume are good, somewhat loud. Thought process circumstantial. Mood is angry and agitated, irritable. Affect is mood congruent. Thought content: Denied any suicidal or homicidal ideas. His insight and judgment are impaired. Cognition: Alert, oriented to time, place and person. Memory is intact. VITAL SIGNS: Temperature 99.4, pulse is 67, respirations 14, blood pressure 114/66. REVIEW OF SYSTEMS: Denied chest pain, palpitations. Denied cough or shortness of breath. Denied abdominal pain, dysuria. Denied dizziness, numbness or tingling. Gait is normal. CURRENT MEDICATIONS: - Depakote 500 mg at night - gabapentin 300 mg three times a day - Bactrim DS one tablet twice a day PLAN: Titrate the medication. Continue individual and group therapy. Coordination of care was done with social work and case management and nursing staff. Estimated length of stay is 4 to 5 days.
[2018-03-01] MEDS: NICOTINE 21MG/24HR 1 EA TRANSDERMAL TD SCH (09:00)
[2018-03-01] MEDS: BACTRIM 160MG/800MG DS TAB PO SCH (09:11)
[2018-03-01] MEDS: GABAPENTIN 300 MG CAP PO SCH ×3 (09:11→21:44)
[2018-03-01] MEDS: PANTOPRAZOLE 40MG TAB (PROTONIX) PO SCH (09:11)
--- NOTE | 2018-03-01 09:16 | MHHPE ---
DATE OF ADMISSION: 02/26/2018 CHIEF COMPLAINT: Feels distressed. SUBJECTIVE: He is [id number]. Carries a diagnosis of bipolar disorder, as well as the possibility of substance use mood disorder, has polysubstance use disorder, and antisocial/borderline personality disorder. He has had several inpatient hospitalizations here, was last here 02/13/2018, discharged 02/19/2018, was apparently transferred to [facility]. Unclear what happened there, but he was not there for long, was at a local motel, where he said he had been staying. Says had been clean since just before his last admission here, about 2 weeks or so ago. He says was making different drugs, which he termed "fake drugs" for other people there. Says the local police drug task force was watching them. He was concerned about his own sake, and though the matter is unclear, says others who were there asked him to leave. He says he walked in the cold, went to the police, spoke with them, and then said I ended up here. Says had essentially no place to go to, but he says his has offered him a place, a place where he used to stay. He says she divides her time between that place and her boyfriend's place, and he is not comfortable with that. Says he has two children, neither of who will speak with him, and that essentially he has no support. Says has been trying to get to rehab, and would want to remain clean of drugs, but that whenever he has attempted that, suggests others sabotage his plans, or he runs into people who he knows, including here at the inpatient unit. Says there is another person who was involved in a similar situation, who he knows, a female, and he identified her. He suggested that he was upset enough that he had thought of assaulting her here, but does not plan to do so. Says feels hopeless, and feels stuck. He indicates was not on any drugs just prior to coming in here, though it should be noted urine was positive for amphetamines. He suggest that he was attempting to manufacture methamphetamine and that, that is what he used with fair regularity in the past. Past psychiatric history and background history, please refer to previous summaries. MENTAL STATUS EXAMINATION: He is neat. He is cooperative. Displays mild agitation in that he paces the room at times, is tearful at times and then appears somewhat angry and irritated, but coherent. Denies active suicidal thoughts or intents. Denies thoughts of harming others, though did acknowledge that he had thought of assaulting the other patient here who he knows. He points out that he had no plans to do so. Denies auditory or visual hallucinations. No evidence of any delusions at present. He is alert, oriented to time, place and person. No fluctuation of consciousness. Intellect average. Judgment and insight are quite questionable. ASSESSMENT: 1. Bipolar disorder, type 1, by history. Current episode possibly manic. 2. Amphetamine use disorder. 3. Homelessness. 4. Nonadherent to treatment recommendations. PLAN: He is admitted to the inpatient psychiatry unit, placed on relevant precautions. Will continue on current medications, offer him Zyprexa, on an as needed basis. He is on Depakote at 500 mg at night, will continue with that, and gabapentin, which he had been on, at 300 mg three times a day. Will look at obtained collateral information. He will receive a medicine consult if indicated. He will be discharged with followup once he is stable. We may need to consider placing 1:1 watch, given his thoughts of hurting another person, but will attempt at de-escalating matters, verbally initially. He will be seeing the assigned treatment team and the psychiatrist tomorrow. I would suggest considering long-term care, given the number of hospitalizations he has had, and instability as an outpatient. I would anticipate a 5-7 day stay. VITAL SIGNS: Blood pressure 106/82. Pulse 68. Temperature 99.2. Assessment took 30 minutes.
--- NOTE | 2018-03-01 10:18 | HPEPDOC ---
[facility] Medical History & Physical Date of Admission Feb 26, 2018 History and Physical PCP: Dr Pemberton ATTENDING: Dr. Selena Torres HPI: 47yoM admitted to [facility] for unspecified depressive disorder, being medically examined today. Patient was treated during his last admission 02/13/18-02/19/18 related to possible abscess right antecubital area. The patient was discharged to complete course of oral Bactrim. He was apparently at [facility] until approximately 3 days prior to his admission here on 02/26/18. The patient had reported during those 3 days he had not been taking his medications. The patient reports the edema and erythema as well as tenderness in the right antecubital area has completely resolved. Patient states he takes Depakote for mood. Denies any fevers, chills, weakness, fatigue, SALAZAR, CP, SOB, cough, palpitations, abdominal pain, N/V/D or changes in bowel or bladder habits. 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 History of marijuana, cocaine, methamphetamine, heroin. Attended [facility] in 2011. IV Drug Use: Methamphetamine Tattoos done unprofessionally: Denies FAMHX: Mother: , COPD Father: , [place] Siblings: Alive, well Children: Alive, well Unexpected deaths due to medical reasons: None. ROS: As noted in HPI, otherwise 11pt ROS of systems reviewed and unremarkable. PE: GEN: 47 yo M, appears stated age. Well-nourished, well developed. No acute distress. Alert and oriented x 3. Pleasant, interactive. HEENT: Normocephalic, atraumatic. Pupils are equal, round, and reactive to light. Extraocular movements are intact. No nystagmus appreciated. Sclera are nonicteric. Conjunctiva without injection. Nose midline. Nasal turbinates without bogginess. EACs both patent BL. TMs both visualized and villa with good cone of light, no bulging or erythema. No facial asymmetry. Moist mucous membranes. Pharynx pink and moist, no cobblestoning. Neck supple, trachea midline. No lymphadenopathy or thyromegaly appreciated. CHEST: Regular rate and rhythm, +S1, +S2 LUNGS: Clear to auscultation bilaterally. No wheezes, rales, or rhonchi. Breathing appears symmetric and easy. Patient is speaking in full sentences. No accessory muscle use. ABD: Round, soft, non-tender, non-distended. +Bowel sounds throughout. No rebound or guarding. No costovertebral angle tenderness. EXT: Pulses 2+ bilaterally dorsalis pedis and radial. No lower extremity edema appreciated. There is no calf tenderness, warmth, erythema or cording noted. SKIN: [place], dry, warm. No rashes. Area of erythema and edema at the right antecubital area has resolved and there is currently no tenderness with palpation. There are no other areas of erythema or edema. NEURO: Alert and oriented x 3. Cranial nerves III-XII are intact. No focal deficits appreciated. EKG: SINUS RHYTHM PROBABLE INFERIOR MYOCARDIAL INFARCTION, OF INDETERMINATE AGE LOW VOLTAGE SIMILAR 08/03/17 Electronically Signed On 01-09-2018 13:40:30 EST by Dori Tran A&P: 47yoM admitted to [facility] for unspecified depressive disorder, 1. Psych. Plan per Psychiatry. EKG on file. 2. Nicotine dependence. Patch available. 3. History of IVDU. HIV and hepatitis screening completed 02/07/18. Patient declines rescreening at this time. 4. Follow up with PCP on discharge. 5. Substance use. Management per psychiatry. 6. Right antecubital area of erythema and edema. Currently resolved. The patient is afebrile. No leukocytosis. Patient states symptoms have completely resolved. The patient is a poor historian. He was started on Bactrim 02/13/18 and continued until his discharge 02/19/18. He was transferred to rehabilitation and apparently continued on Bactrim during his stay at [facility] and was discharged around 02/23/18. He had been off 02/23/18 until his admission on 02/26/18. Since then he has completed an additional 3 days of treatment. 14 days total. Will d/c po Bactrim and monitor. 7. Staff member Reg present throughout exam. Vital Signs Vital Signs Date Time Temp Pulse Resp B/P (MAP) Pulse Ox O2 Delivery O2 Flow Rate FiO2 12/27/18 08:11 Room Air 03/01/18 06:52 98.6 77 14 112/75 (87) 02/26/18 18:23 100 Laboratory Data Labs 24H Item Value Date Time White Blood Count 8.0 10^3/uL 02/26/18 1637 Red Blood Count 4.89 10^6/uL 02/26/18 1637 Hemoglobin 15.0 g/dl 02/26/18 1637 Hematocrit 43.7 % 02/26/18 1637 Mean Corpuscular Volume 89.4 fl 02/26/18 1637 Mean Corpuscular Hemoglobin 30.7 pg 02/26/18 1637 Mean Corpuscular Hemoglobin Concent 34.3 g/dl 02/26/18 1637 Red Cell Distribution Width 12.5 % 02/26/18 1637 Platelet Count 428 10^3/uL 02/26/18 1637 Sodium Level 142 MEQ/L 02/26/18 1638 Potassium Level 4.4 MEQ/L 02/26/18 1638 Chloride Level 106 MEQ/L 02/26/18 1638 Carbon Dioxide Level 28 MEQ/L 02/26/18 1638 Anion Gap 8 MEQ/L 02/26/18 1638 Blood Urea Nitrogen 26 MG/DL H 02/26/18 1638 Creatinine 1.24 MG/DL 02/26/18 1638 Glomerular Filtration Rate > 60.0 02/26/18 1638 Fasting Glucose 91 MG/DL 02/26/18 1638 Calcium Level 9.2 MG/DL 02/26/18 1638 Total Bilirubin 1.1 MG/DL H 02/26/18 1638 Direct Bilirubin 0.3 MG/DL H 02/26/18 1638 Aspartate Amino Transf (AST/SGOT) 32 U/L 02/26/18 1638 Alanine Aminotransferase (ALT/SGPT) 39 U/L 02/26/18 1638 Alkaline Phosphatase 91 U/L 02/26/18 1638 Total Protein 7.5 GM/DL 02/26/18 1638 Albumin 3.8 GM/DL 02/26/18 1638 Albumin/Globulin Ratio 1.03 02/26/18 1638 Thyroid Stimulating Hormone (TSH) 0.925 uIU/ML 02/26/18 1638 Salicylates Level < 1.7 MG/DL L 02/26/18 1638 Urine Opiates Screen NEGATIVE 02/26/18 1637 Urine Methadone Screen NEGATIVE 02/26/18 1637 Acetaminophen Level < 2.0 UG/ML L 02/26/18 1638 Urine Barbiturates Screen NEGATIVE 02/26/18 1637 Urine Phencyclidine Screen NEGATIVE 02/26/18 1637 Urine Amphetamines Screen POSITIVE H 02/26/18 1637 Urine Benzodiazepines Screen NEGATIVE 02/26/18 1637 Home Medications Scheduled Divalproex Sodium (Divalproex Sodium Dr) 500 Mg Tab, 500 MG PO QHS Gabapentin (Gabapentin) 300 Mg Cap, 300 MG PO TID Nicotine (Nicotine Transdermal Syst) 21 Mg/24 Hr Dis, 1 PATCH TD DAILY Pantoprazole Sodium (Pantoprazole Sodium) 40 Mg Tab, 40 MG PO DAILY Trimethoprim/Sulfamethoxazole (Bactrim Ds 800-160 mg) 1 Tab Tab, 1 TAB PO BID for ANTIBIOTIC Scheduled PRN Hydroxyzine HCl (Hydroxyzine HCl) 50 Mg Tab, 50 MG PO Q6H PRN for ANXIETY/AGITATION Trazodone HCl (Trazodone HCl) 50 Mg Tab, 50 MG PO QHS PRN for INSOMNIA Allergies Coded Allergies: No Known Allergies (Unverified , 01/09/18) Jerica Holt Mar 01, 2018 10:18
[2018-03-01] MEDS: OLANZapine ORAL DISINTEGRATING TAB 5MG PO PRN (13:40)
[2018-03-01 18:00] VITALS: BP 125/89
[2018-03-01] MEDS ORDERED: OLANZapine ORAL DISINTEGRATING TAB 5MG PO SCH (21:00)
[2018-03-01] MEDS: DIVALPROEX 500 MG TAB PO SCH (21:44)
[2018-03-01] MEDS: traZODone 50 MG TAB PO PRN (21:45)
[2018-03-02 06:27] VITALS: BP 111/68
[2018-03-02] MEDS: GABAPENTIN 300 MG CAP PO SCH ×3 (08:19→20:13)
[2018-03-02] MEDS: PANTOPRAZOLE 40MG TAB (PROTONIX) PO SCH (08:19)
[2018-03-02] MEDS: NICOTINE 21MG/24HR 1 EA TRANSDERMAL TD SCH (08:22)
--- NOTE | 2018-03-02 13:22 | MHIPN ---
DATE: 03/01/2018 SUBJECTIVE: Patient was sobbing and crying. Complained of suicidal thoughts. Reported, "I don't want to live anymore." OBJECTIVE: This is a 47-year-old male with a history of bipolar disorder, antisocial personality disorder, polysubstance use disorder, who was admitted because of suicidal thoughts. Recently discharged from inpatient mental health unit ([facility]) to a rehabilitation. He came from there from within 1 day. Went to [facility]. From there he has been transferred here. Has long history of mental illness and polysubstance dependence. He has been positive for amphetamine in this admission. He reports nobody is helpful to him, nobody cares for him, "I want to ." MENTAL STATUS EXAMINATION: Depressed. He is casually dressed, lying in his bed crying and sobbing. Made poor eye contact. Psychomotor activity is increased. Speech rate, rhythm, volume are good. Thought process linear, goal directed, sometimes tangential. Mood is depressed. Affect is labile. Thought content: Denied any delusions. Has suicidal thoughts. Insight and judgment are limited. VITAL SIGNS: Temperature 98.6, pulse is 77, respiratory rate is 14, blood pressure 112/75. CURRENT MEDICATIONS: - Depakote 500 mg at night - gabapentin 300 mg three times a day PLAN: Add Zydis 5 mg at night. Continue rest of the medication. Continue individual and group therapy. Place patient on one-to-one.
[2018-03-02] MEDS: OLANZapine ORAL DISINTEGRATING TAB 5MG PO PRN (15:41)
[2018-03-02 18:00] VITALS: BP 123/68
[2018-03-02] MEDS: traZODone 50 MG TAB PO PRN (20:13)
[2018-03-02] MEDS: DIVALPROEX 500 MG TAB PO SCH (20:13)
[2018-03-02] MEDS: OLANZapine ORAL DISINTEGRATING TAB 5MG PO SCH (20:14)
[2018-03-03 06:35] VITALS: BP 108/69
[2018-03-03] MEDS: NICOTINE 21MG/24HR 1 EA TRANSDERMAL TD SCH (09:00)
[2018-03-03] MEDS: PANTOPRAZOLE 40MG TAB (PROTONIX) PO SCH (09:08)
[2018-03-03] MEDS: GABAPENTIN 300 MG CAP PO SCH ×3 (09:08→20:08)
--- NOTE | 2018-03-03 09:18 | MHIPN ---
DATE: 03/02/2018 SUBJECTIVE: "Today, I am feeling better, I do not have any suicidal thoughts, people are helping me." OBJECTIVE: 47-year-old male with a history of mood disorder and polysubstance use disorder, who was admitted with suicidal thoughts. The patient has been hospitalized multiple times. He has been noncompliant with his followup plan. Currently, he is doing better. Yesterday he was complaining of suicidal thoughts with a plan to cut his wrist and he was kept on one-to-one. Today, his sleep and appetite are fine. MENTAL STATUS EXAMINATION: He is casually dressed. Laying in his bed casually dressed, cooperative. Made good eye contact. Denied auditory or visual hallucinations. Denied suicidal or homicidal ideas. Mood is euthymic. Insight and judgment are fair to limited. Cognition: Alert, oriented to time, place and person. Memory is intact. Insight and judgment are fair to limited. VITAL SIGNS: Temperature 98.9, pulse is 67, respirations 14, blood pressure 111/68. REVIEW OF SYSTEMS: Denied chest pain, palpitations. Denied abdominal pain, dysuria. Denied cough or shortness of breath. Denied tingling, numbness and dizziness. Gait is normal. MEDICATIONS: - olanzapine 5 mg at night - Depakote 500 mg at night - gabapentin 300 mg three times a day - trazodone 50 mg at night as needed DIAGNOSES: 1. Bipolar 1 disorder. 2. Amphetamine use disorder. PLAN: Increase his Zyprexa to 10 mg at night. Continue the rest of the medications. Continue individual and group therapy. The patient was given a list of rehabilitations that he can call where he can go, as the patient wants to go to drug rehabilitation outside of [place].D/C his constant observation. STAN
[2018-03-03] MEDS: OLANZapine ORAL DISINTEGRATING TAB 5MG PO PRN (16:41)
[2018-03-03 18:00] VITALS: BP 102/60
[2018-03-03] MEDS: OLANZapine ORAL DISINTEGRATING TAB 5MG PO SCH (20:08)
[2018-03-03] MEDS: traZODone 50 MG TAB PO PRN (20:08)
[2018-03-03] MEDS: DIVALPROEX 500 MG TAB PO SCH (20:08)
[2018-03-04 06:38] VITALS: BP 106/68
[2018-03-04] MEDS: NICOTINE 21MG/24HR 1 EA TRANSDERMAL TD SCH (09:00)
[2018-03-04] MEDS: PANTOPRAZOLE 40MG TAB (PROTONIX) PO SCH (09:25)
[2018-03-04] MEDS: GABAPENTIN 300 MG CAP PO SCH ×3 (09:25→20:16)
[2018-03-04 18:00] VITALS: BP 102/60
[2018-03-04] MEDS: DIVALPROEX 500 MG TAB PO SCH (20:16)
[2018-03-04] MEDS: OLANZapine ORAL DISINTEGRATING TAB 5MG PO SCH (20:17)
[2018-03-04] MEDS ORDERED: traZODone 100 MG TAB PO PRN (21:15)
[2018-03-04] MEDS ORDERED: QUEtiapine FUMARATE 100 MG TAB PO ONE (21:45)
[2018-03-05 06:19] VITALS: BP 124/53
[2018-03-05] MEDS: PANTOPRAZOLE 40MG TAB (PROTONIX) PO SCH (08:51)
[2018-03-05] MEDS: NICOTINE 21MG/24HR 1 EA TRANSDERMAL TD SCH (08:51)
[2018-03-05] MEDS: GABAPENTIN 300 MG CAP PO SCH ×2 (08:51→15:09)
[2018-03-05] MEDS ORDERED: QUEtiapine FUMARATE 100 MG TAB PO SCH (09:00)
[2018-03-05] MEDS ORDERED: QUET1TAB8 PO (15:11)
[2018-03-05] MEDS ORDERED: OLAN10TA2 PO (15:23)
--- NOTE | 2018-03-06 07:32 | MHIPN ---
DATE: 03/05/2018 SUBJECTIVE: Patient is laying in his bed and reports he is sore because he could not sleep yesterday night. OBJECTIVE: This is a 47-year-old male with history of bipolar disorder, antisocial personality disorder, polysubstance use disorder, who was admitted because of suicidal thoughts. The patient recently discharged from inpatient mental health unit to rehabilitation. He went to rehabilitation and he got discharged from the rehabilitation within one day and went to [facility] and from there he has been transferred to [facility]. He was positive for amphetamine during admission. The patient has been depressed and contemplating suicidal thoughts, but now he denies any suicidal thoughts, but complains of poor social support. He wants to go to rehabilitation and he has called several places waiting for a reply. MENTAL STATUS EXAMINATION: He is depressed, laying in his bed. Casually dressed. Personal hygiene is good with clean clothes. Mood is mildly depressed. Affect is appropriate for the mood. He denied auditory or visual hallucinations. Denied suicidal or homicidal ideas. Denied any delusions. His insight and judgment are limited. Alert and oriented to time, place and person. Memory is intact. VITAL SIGNS: Temperature 97.7, pulse 62, respiratory rate 14, blood pressure 124/53. REVIEW OF SYSTEMS: Denied chest pain or palpitations. Denied abdominal pain or dysuria. Denied cough or shortness of breath. Denied tingling, numbness and dizziness. DIAGNOSES: Bipolar I disorder. Polysubstance use disorder. PLAN: To continue current medications and he is in the process of getting transferred to inpatient rehabilitation. Continue individual and group therapy. Coordination of care was discussed with nursing staff and social work. ESTIMATED LENGTH OF STAY: 2-3 days.
--- NOTE | 2018-03-06 12:18 | MHDS ---
DATE OF ADMISSION: 02/26/2018 DATE OF DISCHARGE: 03/05/2018 DIAGNOSES: 1. Bipolar 1 disorder, depressed. 2. Amphetamine use disorder. IDENTIFYING DATA: He is a 47-year-old male with a history of mood disorder, polysubstance use disorder who was admitted with suicidal thoughts. Patient was hospitalized multiple times. He was noncompliant with followup plan. He was recently discharged from inpatient mental health unit ([facility]), then he went to a rehabilitation. Within 1 day he got himself out from there, and he came back and was readmitted for suicidal thoughts. For details of history of present illness (HPI), past psychiatric history, medical history, family history, social history, pleaser refer to the initial evaluation. HOSPITAL COURSE: Patient was initially depressed, complaining of some hallucinations, some mood swings. He was placed on Seroquel, trazodone, and gabapentin. Patient made some improvement, but suddenly he became suicidal. He was kept on one-to-one, and his medication was titrated upward. Patient made gradual recovery. His mood improved. He relate well with the staff. There were no behavioral issues. He was compliant with medication, attending groups. No side effects from the medications. He denied any suicidal or homicidal ideas. He was stable at the time of discharge. MENTAL STATUS EXAMINATION: Casually dressed, cooperative. Made good eye contact. Psychomotor activity is normal. Mood euthymic with appropriate affect. Thought process linear, goal directed. Thought content: Denied any suicidal or homicidal ideas. No evidence of any delusions. His insight and judgment are fair. He is alert and oriented to time, place, and person. His insight and judgment are fair. VITAL SIGNS: Temperature 98.9, pulse 67, respirations 14, blood pressure 111/67. REVIEW OF SYSTEMS: Denied chest pain, palpitations. Denied abdominal pain, dysuria. Denied cough or shortness of breath. Denied tingling, numbness, or dizziness. Gait is normal. CURRENT MEDICATIONS: j - quetiapine 100 mg twice a day - Depakote 500 mg at night - Patient was also given olanzapine 10 mg at night. Patient wanted to go to a rehabilitation in [place]; however, a friend has allowed him to stay with him, and he will be going to [place] for his rehabilitation. He will make his own appointment.
== END 2018-03-05 15:50 | disposition home or self-care (01) | DRG 754 ==
LOC: M ED 15:22 → M ED INP 17:50 → M PSY 18:52
PROVIDERS: ADMIT Psychiatry & Neurology Psychiatry; ATTEND Psychiatry & Neurology Psychiatry
DX: F32.9 Major depressive disorder, single episode, unspecified (principal); Z91.19 Patient's noncompliance with other medical treatment and regimen; R45.851 Suicidal ideations; F15.90 Other stimulant use, unspecified, uncomplicated; F41.9 Anxiety disorder, unspecified; F17.200 Nicotine dependence, unspecified, uncomplicated; Z79.899 Other long term (current) drug therapy

== ENCOUNTER 2018-04-02 01:05 | Emergency (ER) | payer MEDICAID, OTHER ==
[~2018-04-02] VITALS: Ht 165.1 cm; Wt 59.1 kg
[~2018-04-02 01:05] MED LIST changes: +OLAN10TA2 PO; +PANT40TA3 PO
[2018-04-02] MEDS ORDERED: LIDOCAINE W/EPINEPHRINE 1% 20ML VIAL As Ordered ONE (01:45)
[2018-04-02] MEDS ORDERED: LIDOCAINE W/EPINEPHRINE 1% 20ML VIAL SC ONE (01:45)
[2018-04-02 02:30] VITALS: BP 109/67
[2018-04-02] MEDS ORDERED: BACT800T5 PO (02:38)
[2018-04-02] MEDS ORDERED: BACTRIM 160MG/800MG DS TAB PO ONE (02:45)
[2018-04-02] MEDS ORDERED: BACTRIM 160MG/800MG DS TAB As Ordered ONE (02:53)
[2018-04-03] MEDS ORDERED: BACT800T5 PO (15:53)
== END 2018-04-02 02:55 | disposition home or self-care (01) ==
LOC: M ED 01:05
DX: S40.022A Contusion of left upper arm, initial encounter (principal); X58.XXXA Exposure to other specified factors, initial encounter; Y92.9 Unspecified place or not applicable; Y93.9 Activity, unspecified; Y99.9 Unspecified external cause status; F19.10 Other psychoactive substance abuse, uncomplicated; Z79.899 Other long term (current) drug therapy

== ENCOUNTER 2018-04-03 14:20 | Emergency (ER) | payer OTHER ==
[~2018-04-03] VITALS: Ht 165.1 cm; Wt 59.1 kg
[2018-04-03] MEDS ORDERED: LIDOCAINE W/EPINEPHRINE 1% 20ML VIAL SC ONE (15:30)
[2018-04-03] MEDS ORDERED: BACTRIM 160MG/800MG DS TAB PO ONE (15:30)
[2018-04-03] MEDS ORDERED: BACT800T5 PO (15:53)
[2018-04-03 16:01] VITALS: BP 125/79
== END 2018-04-03 16:01 | disposition home or self-care (01) ==
LOC: M ED 14:20
DX: L02.414 Cutaneous abscess of left upper limb (principal); F33.9 Major depressive disorder, recurrent, unspecified; F41.9 Anxiety disorder, unspecified; F19.20 Other psychoactive substance dependence, uncomplicated; Z79.899 Other long term (current) drug therapy; F17.210 Nicotine dependence, cigarettes, uncomplicated

== ENCOUNTER 2018-04-22 08:00 | Inpatient (IN) | payer MEDICAID, OTHER ==
[~2018-04-22] VITALS: Ht 165.1 cm; Wt 55.7 kg
[2018-04-22 08:42] LABS: HEMATOCRIT 42.2 % (42.0-52.0); HEMOGLOBIN 14.8 g/dl (13.5-17.5); MEAN CORPUSCULAR HEMOGLOBIN 29.9 pg (27.0-33.0); MEAN CORPUSCULAR HGB CONC 35.1 g/dl (32.0-36.5); MEAN CORPUSCULAR VOLUME 85.3 fl (80.0-96.0); PLATELET COUNT, AUTOMATED 456 10^3/uL (150-450); RED BLOOD COUNT 4.95 10^6/uL (4.30-6.10); WHITE BLOOD COUNT 6.1 10^3/uL (4.0-10.0)
[2018-04-22 09:15] LABS: AMPHETAMINES LEVEL URINE POSITIVE (NEGATIVE); BARBITURATES URINE NEGATIVE (NEGATIVE); BENZODIAZEPINES URINE NEGATIVE (NEGATIVE); CANNABINOIDS URINE POSITIVE (NEGATIVE); COCAINE METABOLITE URINE NEGATIVE (NEGATIVE); METHADONE URINE NEGATIVE (NEGATIVE); OPIATES URINE NEGATIVE (NEGATIVE); PHENCYCLIDINE URINE NEGATIVE (NEGATIVE)
[2018-04-22 09:19] LABS: ACETAMINOPHEN LEVEL < 2.0 UG/ML (10.0-30.0); ALBUMIN 3.9 GM/DL (3.2-5.2); ALT/SGPT 501 U/L (12-78); BILIRUBIN,DIRECT 0.3 MG/DL (0.0-0.2); BILIRUBIN,TOTAL 1.2 MG/DL (0.2-1.0); BLOOD UREA NITROGEN 13 MG/DL (7-18); CALCIUM LEVEL 8.7 MG/DL (8.5-10.1); CARBON DIOXIDE LEVEL 24 MEQ/L (21-32); CHLORIDE LEVEL 108 MEQ/L (98-107); CREATININE FOR GFR 0.97 MG/DL (0.70-1.30); ETHYL ALCOHOL (ETHANOL) 0.003 % (0.000-0.010); GLOMERULAR FILTRATION RATE > 60.0 (>60); GLUCOSE, FASTING 103 MG/DL (70-100); POTASSIUM SERUM 4.2 MEQ/L (3.5-5.1); SALICYLATE LEVEL < 1.7 MG/DL (5.0-30.0); SODIUM LEVEL 140 MEQ/L (136-145); TOTAL PROTEIN 7.2 GM/DL (6.4-8.2)
[2018-04-22] MEDS ORDERED: LORazepam 1 MG TAB PO ONE (11:00)
[2018-04-22] MEDS ORDERED: LORazepam 1 MG TAB PO STA (13:20)
[2018-04-22] MEDS ORDERED: traZODone 50 MG TAB PO PRN ×2 (14:00→18:45)
[2018-04-22] MEDS ORDERED: ACETAMINOPHEN TAB 650MG DOSE (2X325MG) PO PRN (14:00)
[2018-04-22] MEDS ORDERED: MAALOX 30 ML SUSP *UDC PO PRN (14:00)
[2018-04-22] MEDS ORDERED: MOM 30ML SUSPENSION UDC PO PRN (14:00)
--- NOTE | 2018-04-22 16:41 | ECGEPIP ---
Stationary ECG Study [facility] - ED Test Date: 2018-04-22 Pat Name: RIVERA CARROLL Department: Room: - Gender: M Nursing Assoc: sebastián : 1970 Requested By: ENMA Salamanca Order Number: [id number] Reading MD: Dori Tran Measurements Intervals [place] Rate: 82 P: 70 VT: 124 QRS: -38 QRSD: 89 T: 62 QT: 332 QTc: 389 Interpretive Statements SINUS RHYTHM MARKED LEFT AXIS DEVIATION INFERIOR MYOCARDIAL INFARCTION, PROBABLY OLD SIMILAR 01/09/18 Electronically Signed On 04-22-2018 16:41:32 EST by Dori Tran
[2018-04-22 17:58] VITALS: BP 132/88
[2018-04-22] MEDS ORDERED: hydrOXYzine 50 MG TAB PO PRN (18:45)
[2018-04-22] MEDS: QUEtiapine FUMARATE 100 MG TAB PO SCH (20:08)
[2018-04-22] MEDS: GABAPENTIN 300 MG CAP PO SCH (20:08)
[2018-04-22] MEDS: OLANZapine 10 MG TAB PO SCH (20:09)
[2018-04-23 07:09] VITALS: BP 124/74
[2018-04-23 08:17] LABS: ALBUMIN 3.6 GM/DL (3.2-5.2); ALT/SGPT 460 U/L (12-78); AMYLASE 43 U/L (25-115); BILIRUBIN,DIRECT 0.3 MG/DL (0.0-0.2); BILIRUBIN,TOTAL 0.9 MG/DL (0.2-1.0); LIPASE 75 U/L (73-393); TOTAL PROTEIN 6.9 GM/DL (6.4-8.2)
[2018-04-23 08:55] LABS: HEPATITIS B SURFACE ANTIGEN NEGATIVE (NEGATIVE)
[2018-04-23 09:22] LABS: HEPATITIS C VIRUS ABY INDEX < 0.0 INDEX (<0.8)
[2018-04-23 09:23] LABS: HEPATITIS B CORE ANTIBODY IGM NEGATIVE (NEGATIVE)
[2018-04-23 09:25] LABS: HEPATITIS A ANTIBODY IGM NEGATIVE (NEGATIVE)
[2018-04-23] MEDS: GABAPENTIN 300 MG CAP PO SCH ×3 (09:30→22:01)
[2018-04-23] MEDS: PANTOPRAZOLE 40MG TAB (PROTONIX) PO SCH (09:30)
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
[2018-04-23 18:00] VITALS: BP 106/72
[2018-04-23] MEDS: OLANZapine 10 MG TAB PO SCH (22:00)
[2018-04-23] MEDS: QUEtiapine FUMARATE 100 MG TAB PO SCH (22:01)
[2018-04-24 06:41] VITALS: BP 102/68
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
[2018-04-24] MEDS: PANTOPRAZOLE 40MG TAB (PROTONIX) PO SCH (08:59)
[2018-04-24] MEDS: GABAPENTIN 300 MG CAP PO SCH (09:00)
--- NOTE | 2018-04-24 09:06 | REP ---
HEPATIC ULTRASOUND: 04/24/2018. Clinical history: Abnormal LFTs. Comparison CT abdomen 09/22/2018. Findings: Sonographic evaluation of the right upper quadrant shows the liver with some mild increased echogenicity throughout suggesting some fatty infiltration. I see no hepatic mass, cyst, intrahepatic biliary dilatation nor adjacent ascites. The gallbladder is contracted but the patient confirms that he had not eat for at least 8 hours. I do not see calcified stone, mass or pericholecystic fluid. There was no sonographic Mccarty's sign. The common duct is 6.1 mm without a filling defect. This is near the upper limits of normal. Pancreas unremarkable. The right kidney is 10 x 4.6 x 6.3 cm with some sinus lipomatosis, but no hydronephrosis, mass or stone. Impression: 1. Mild fatty infiltration liver without hepatic mass or biliary dilatation. No sonographic Mccarty sign or gallstones, but the gallbladder is contracted despite the patient fasting for 8-10 hours. 2. Common duct 6.1 mm, upper range of normal but no filling defect or intrahepatic ductal dilatation. 3. Pancreas and right kidney without acute finding. Electronically Signed by Corky Zamorano MD 04/24/2018 05:46 P
--- NOTE | 2018-04-24 11:42 | HPE ---
DATE OF ADMISSION: 04/22/2018 HISTORY OF PRESENT ILLNESS: Please refer to psychiatric history and evaluation for further details on this admission. This examination and history is intended for medical issues, which may need treatment, followup, or consult on this 47-year-old male. ALLERGIES: No known allergies. PAST MEDICAL HISTORY: Anxiety. Depression. Polysubstance abuse. Intravenous (IV) drug use. Bipolar disorder. PAST SURGICAL HISTORY: Appendectomy. SOCIAL HISTORY: He lives in [place]. 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 Urine was positive for cannabinoids, positive for amphetamines. Smokes two packs of cigarettes per day. Ethyl alcohol (EtOH): He denies any. Recreational drug use: History of methamphetamine, heroin use, history of marijuana, cocaine use. in 2011. Electrocardiogram (EKG): Sinus rhythm. Probable inferior myocardial infarction (SC) of indeterminate age. It is old. LABORATORY STUDIES: WBC 6.1, hemoglobin 14.8, hematocrit 42.2, platelets 456. Sodium 140, potassium 4.0, chloride 108, CO2 24, BUN 8, creatinine 13, total bilirubin 1.2, direct bilirubin 0.3, AST 201, ALT 501. Urine for toxicology was positive for amphetamines and positive for cannabinoids. HOME MEDICATIONS: - Seroquel 100 mg by mouth twice a day - gabapentin 300 mg by mouth three times a day - hydroxyzine 50 mg by mouth every 6 hours as needed anxiety - olanzapine 10 mg by mouth every day - Protonix 40 mg by mouth daily - trazodone 50 mg by mouth nightly as needed insomnia Ten systems review was done and was unremarkable. He had no specific medical issues or complaints. OBJECTIVE: A 47-year-old cooperative male, in no acute distress. Blood pressure 132/88, pulse 88, respirations 18, temperature 99, oxygen (O2) saturation 97% on room air.. The patient is alert and oriented times three. Pupils are equal and react to light. Extraocular movements (EOMs) intact. Cornea and sclerae clear. Conjunctivae normal. No facial asymmetry. Pharynx, tongue, gums pink and moist. Tongue is midline. NECK: Is supple without lymphadenopathy. No thyromegaly. No goiter. Carotids 2+ without bruit. CHEST: Clear to auscultation without wheeze or retraction. HEART: Is regular. ABDOMEN: Benign. Abdomen is soft, nontender. No masses, pulsations, or bruits. No organomegaly. Bowel sounds are positive. GENITOURINARY ()/RECTAL: Not done. EXTREMITIES: Show equal strength, full range of motion. No cyanosis, clubbing, or edema. Peripheral pulses equal and palpable bilaterally. SKIN: Is warm and dry. IMPRESSION AND PLAN: 1. Psychiatric plan per psychiatry. 2. History of tachycardia. Will get repeat EKG in the a.m. 3. Elevated liver enzymes. No complaints of pain or nausea. Repeat liver profile. The patient is agreeable to have a repeat hepatitis panel with outpatient provider. 4. Elevated white count now. 5. Leukocytosis, asymptomatic. Recheck in a.m. The patient is agreeable for testing and is ordered for a.m. Encouraged by mouth fluids. Hepatitis panel and complete blood count (CBC) and complete metabolic panel (CMP) in the a.m.
[2018-04-24] MEDS ORDERED: VIST50CA PO (13:39)
[2018-04-24] MEDS ORDERED: SERO1TAB PO (13:43)
[2018-04-24] MEDS ORDERED: ZYPR10TA PO (13:43)
== END 2018-04-24 13:30 | disposition home or self-care (01) | DRG 754 ==
LOC: M ED 08:00 → M ED INP 13:59 → M PSY 16:47
PROVIDERS: ADMIT Psychiatry & Neurology Psychiatry; ATTEND Psychiatry & Neurology Psychiatry
DX: F32.9 Major depressive disorder, single episode, unspecified (principal); F15.14 Other stimulant abuse with stimulant-induced mood disorder; F12.10 Cannabis abuse, uncomplicated; Z63.4 Disappearance and death of family member; F17.210 Nicotine dependence, cigarettes, uncomplicated; Z79.899 Other long term (current) drug therapy; T43.622A Poisoning by amphetamines, intentional self-harm, initial encounter; Y92.009 Unspecified place in unspecified non-institutional (private) residence as the place of occurrence of the external cause

== ENCOUNTER 2018-05-08 18:42 | Emergency (ER) | payer MEDICAID ==
[~2018-05-08] VITALS: Ht 170.2 cm; Wt 59.1 kg
[~2018-05-08 18:42] MED LIST changes: +SERO1TAB PO; +VIST50CA PO; +ZYPR10TA PO
[2018-05-08 21:00] LABS: HEMATOCRIT 44.1 % (42.0-52.0); HEMOGLOBIN 15.3 g/dl (13.5-17.5); MEAN CORPUSCULAR HEMOGLOBIN 30.1 pg (27.0-33.0); MEAN CORPUSCULAR HGB CONC 34.7 g/dl (32.0-36.5); MEAN CORPUSCULAR VOLUME 86.8 fl (80.0-96.0); PLATELET COUNT, AUTOMATED 300 10^3/uL (150-450); RED BLOOD COUNT 5.08 10^6/uL (4.30-6.10); WHITE BLOOD COUNT 9.7 10^3/uL (4.0-10.0)
[2018-05-08 21:12] LABS: ACETAMINOPHEN LEVEL < 2.0 UG/ML (10.0-30.0); ALBUMIN 4.2 GM/DL (3.2-5.2); ALT/SGPT 812 U/L (12-78); BILIRUBIN,DIRECT 0.6 MG/DL (0.0-0.2); BILIRUBIN,TOTAL 1.7 MG/DL (0.2-1.0); BLOOD UREA NITROGEN 21 MG/DL (7-18); CALCIUM LEVEL 8.6 MG/DL (8.5-10.1); CARBON DIOXIDE LEVEL 22 MEQ/L (21-32); CHLORIDE LEVEL 106 MEQ/L (98-107); CREATININE FOR GFR 1.18 MG/DL (0.70-1.30); ETHYL ALCOHOL (ETHANOL) < 0.003 % (0.000-0.010); GLOMERULAR FILTRATION RATE > 60.0 (>60); GLUCOSE, FASTING 67 MG/DL (70-100); POTASSIUM SERUM 4.3 MEQ/L (3.5-5.1); SALICYLATE LEVEL 3.1 MG/DL (5.0-30.0); SODIUM LEVEL 140 MEQ/L (136-145); TOTAL PROTEIN 7.7 GM/DL (6.4-8.2)
[2018-05-08 21:23] LABS: AMPHETAMINES LEVEL URINE POSITIVE (NEGATIVE); BARBITURATES URINE NEGATIVE (NEGATIVE); BENZODIAZEPINES URINE NEGATIVE (NEGATIVE); CANNABINOIDS URINE POSITIVE (NEGATIVE); COCAINE METABOLITE URINE NEGATIVE (NEGATIVE); METHADONE URINE NEGATIVE (NEGATIVE); OPIATES URINE NEGATIVE (NEGATIVE); PHENCYCLIDINE URINE NEGATIVE (NEGATIVE)
[2018-05-08] MEDS ORDERED: LORazepam 2 MG/ML VIAL (J2060) As Ordered ONE (22:07)
[2018-05-08] MEDS ORDERED: HALOPERIDOL 5 MG/ML VIAL (J1630) As Ordered ONE (22:07)
[2018-05-08] MEDS ORDERED: HALOPERIDOL 5 MG/ML VIAL (J1630) IM ONE (22:15)
[2018-05-08] MEDS ORDERED: LORazepam 2 MG/ML VIAL (J2060) IM ONE (22:15)
--- NOTE | 2018-05-09 07:58 | REP ---
Left foot four views: Question nondisplaced fracture in the head of the fourth digit proximal phalange. This should be correlated with clinical point tenderness. No dislocation. Mineralization joint spaces otherwise unremarkable. No calcifications or foreign bodies. Impression: Question fracture head of the fourth digit proximal phalange. Correlate with clinical point tenderness. Electronically Signed by Odilon Forte MD 05/09/2018 07:50 A
[2018-05-09 08:50] VITALS: BP 114/74
--- NOTE | 2018-05-09 13:35 | ED PDOC ---
Post-Departure Follow-Up gave ed rn chargebernarda felix xray of left foot film to fax to [facility]. Jackelin Choi MD May 09, 2018 13:35
== END 2018-05-09 08:50 ==
LOC: M ED 18:42
DX: R45.851 Suicidal ideations (principal); S99.922A Unspecified injury of left foot, initial encounter; X58.XXXA Exposure to other specified factors, initial encounter; Y92.9 Unspecified place or not applicable; Y93.9 Activity, unspecified; Y99.9 Unspecified external cause status; R93.7 Abnormal findings on diagnostic imaging of other parts of musculoskeletal system; F41.9 Anxiety disorder, unspecified; F32.9 Major depressive disorder, single episode, unspecified; F19.10 Other psychoactive substance abuse, uncomplicated; R94.5 Abnormal results of liver function studies; Z72.0 Tobacco use; Z79.899 Other long term (current) drug therapy
CPT/HCPCS: 36415; 73630; 80048; 80076; 80307; 84443; 85027; 96372; 99285; G0480; J1630; J2060

== ENCOUNTER 2018-06-21 19:14 | Inpatient (IN) | payer MEDICAID ==
[~2018-06-21] VITALS: Ht 165.1 cm; Wt 54.0 kg
[~2018-06-21 19:14] MED LIST changes: +ARIP1TAB6 PO; -ARIP5TA PO
[2018-06-21 21:18] LABS: HEMATOCRIT 33.9 % (42.0-52.0); HEMOGLOBIN 11.3 g/dl (13.5-17.5); MEAN CORPUSCULAR HEMOGLOBIN 28.3 pg (27.0-33.0); MEAN CORPUSCULAR HGB CONC 33.3 g/dl (32.0-36.5); PLATELET COUNT, AUTOMATED 373 10^3/uL (150-450); RED BLOOD COUNT 3.99 10^6/uL (4.30-6.10); WHITE BLOOD COUNT 8.5 10^3/uL (4.0-10.0)
[2018-06-21 21:46] LABS: ACETAMINOPHEN LEVEL < 2.0 UG/ML (10.0-30.0); ALBUMIN 3.7 GM/DL (3.2-5.2); ALT/SGPT 155 U/L (12-78); BILIRUBIN,DIRECT 0.3 MG/DL (0.0-0.2); BILIRUBIN,TOTAL 0.8 MG/DL (0.2-1.0); BLOOD UREA NITROGEN 10 MG/DL (7-18); CALCIUM LEVEL 8.5 MG/DL (8.5-10.1); CARBON DIOXIDE LEVEL 25 MEQ/L (21-32); CHLORIDE LEVEL 107 MEQ/L (98-107); CREATININE FOR GFR 0.92 MG/DL (0.70-1.30); ETHYL ALCOHOL (ETHANOL) < 0.003 % (0.000-0.010); GLOMERULAR FILTRATION RATE > 60.0 (>60); GLUCOSE, FASTING 81 MG/DL (70-100); POTASSIUM SERUM 3.4 MEQ/L (3.5-5.1); SODIUM LEVEL 139 MEQ/L (136-145); THYROID STIMULATING HORMONE 0.878 uIU/ML (0.358-3.740)
[2018-06-21 22:01] LABS: AMPHETAMINES LEVEL URINE POSITIVE (NEGATIVE); BARBITURATES URINE NEGATIVE (NEGATIVE); BENZODIAZEPINES URINE NEGATIVE (NEGATIVE); CANNABINOIDS URINE NEGATIVE (NEGATIVE); COCAINE METABOLITE URINE NEGATIVE (NEGATIVE); METHADONE URINE NEGATIVE (NEGATIVE); OPIATES URINE NEGATIVE (NEGATIVE); PHENCYCLIDINE URINE NEGATIVE (NEGATIVE)
[2018-06-21] MEDS ORDERED: MOM 30ML SUSPENSION UDC PO PRN (22:15)
[2018-06-21] MEDS ORDERED: ACETAMINOPHEN TAB 650MG DOSE (2X325MG) PO PRN (22:15)
[2018-06-21] MEDS ORDERED: MAALOX 30 ML SUSP *UDC PO PRN (22:15)
[2018-06-21] MEDS ORDERED: OLANZapine ORAL DISINTEGRATING TAB 5MG PO PRN (22:15)
[2018-06-21] MEDS ORDERED: HYDR50CA2 PO (22:36)
[2018-06-21] MEDS ORDERED: OLAN10TA2 PO (22:36)
[2018-06-21] MEDS ORDERED: CLEO300C2 PO (22:37)
[2018-06-21] MEDS ORDERED: FLOM0.4C39 PO (22:37)
[2018-06-21] MEDS ORDERED: CITA20TA6 PO (22:37)
[2018-06-21 23:20] VITALS: BP 116/71
[2018-06-22 07:00] VITALS: BP 106/71
[2018-06-22] MEDS ORDERED: NICOTINE 21MG/24HR 1 EA TRANSDERMAL TD SCH (09:00)
[2018-06-22] MEDS ORDERED: NICOTINE 21MG/24HR 1 EA TRANSDERMAL TD PRN (11:15)
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
[2018-06-22] MEDS: PANTOPRAZOLE 40MG TAB (PROTONIX) PO SCH (16:51)
[2018-06-22] MEDS: GABAPENTIN 300 MG CAP PO SCH ×2 (16:51→21:47)
[2018-06-22 18:06] VITALS: BP 109/74
[2018-06-23 07:08] VITALS: BP 101/62
[2018-06-23] MEDS: TAMSULOSIN 0.4 MG CAP PO SCH (09:14)
[2018-06-23] MEDS: PANTOPRAZOLE 40MG TAB (PROTONIX) PO SCH (09:14)
[2018-06-23] MEDS: GABAPENTIN 300 MG CAP PO SCH ×3 (09:14→21:41)
--- NOTE | 2018-06-23 14:36 | IPNPDOC ---
Date Seen The patient was seen on 06/23/18. Progress Note SUBJECTIVE: Patient tells me that he is feeling better he denies any complaints at this time no dysuria and fevers chills chest pressure shortness of breath no paresthesias OBJECTIVE PHYSICAL EXAMINATION: GEN: 47 yo M, appears stated age. Well-nourished, well developed. No acute distress. Alert and oriented x 3. Pleasant, interactive. HEENT: Pupils are equal, round, and reactive to light. Extraocular movements are intact. No nystagmus appreciated. Sclera are nonicteric. Moist mucous membranes. CHEST: Regular rate and rhythm, +S1, +S2 LUNGS: Clear to auscultation bilaterally. No wheezes, rales, or rhonchi. ABD: Round, soft, non-tender, non-distended. +Bowel sounds throughout. EXT: Pulses 2+ bilaterally dorsalis pedis and radial. No lower extremity edema appreciated. Labs imaging as outlined below A&P: 47yoM admitted to [facility] for unspecified psychosis, 1. Psych. Plan per Psychiatry. 2. Nicotine dependence. Patch available. 3. Dysuria: UA is unremarkable dysuria has resolved 4. Follow up with PCP on discharge. 5. Substance use. Management per psychiatry. 6. Abnormal liver function tests secondary to hepatitis outpatient follow-up 7. Anemia mild outpatient follow-up 8. BPH continue with tamsulosin symptoms have improved 9. Gastroesophageal reflux disease: Continue with pantoprazole 10. Chronic pain: Continue with gabapentin I am unsure if he is actually taking this medication but would avoid an abrupt cessation of the Male Staff member present throughout exam. VS, I&O, 24H, Fishbone Vital Signs/I&O Vital Signs Date Time Temp Pulse Resp B/P (MAP) Pulse Ox O2 Delivery O2 Flow Rate FiO2 06/23/18 07:08 99.6 65 14 101/62 (75) 06/21/18 23:20 96 06/21/18 23:11 Room Air Laboratory Data 24H LABS Laboratory Tests 2 06/22/18 16:50: Urine Color KELSIE, Urine Appearance CLEAR, Urine pH 6.0, Urine Specific [place] 1.023, Urine Protein NEGATIVE, Urine Glucose (UA) NEGATIVE, Urine Ketones NEGATIVE, Urine Blood NEGATIVE, Urine Nitrite NEGATIVE, Urine Bilirubin NEGATIVE, Urine Urobilinogen 4.0H, Urine Leukocyte Esterase NEGATIVE, Urine WBC (Auto) 5H, Urine RBC (Auto) 1, Urine Hyaline Casts (Auto) 0, Urine Bacteria (Auto) NEGATIVE, Urine Squamous Epithelial Cells 0, Urine Amorphous Sediment SMALLH, Urine Mucus (Auto) SMALL, Urine Sperm (Auto) PINO BARCENAS MD Jun 23, 2018 14:36
--- NOTE | 2018-06-23 15:56 | MHIPN ---
DATE: 06/21/2018 CHIEF COMPLAINT: Says feels better. SUBJECTIVE: Seen for followup. Indicates feels better, in that he has had better sleep. Says trying to catch up on it. Appetite is improved. MENTAL STATUS EXAMINATION: Neat, cooperative, though at times appears somewhat disinterested. No agitation. No psychomotor retardation. He is coherent. Affect is fair range, though restricted. Denies any suicidal thoughts or intents. No homicidal ideas or intents. No evidence of any psychosis at present. Does not appear to be internally preoccupied. Cognition grossly intact. Judgment and insight are compromised. ASSESSMENT: 1. Consider substance use mood disorder. 2. Polysubstance use disorder. PLAN: Continue current care, observations. Encourage his participation in activity on the unit. Continue gabapentin, olanzapine as needed. VITAL SIGNS: Blood pressure 101/62, pulse 65, temperature 99.6.
[2018-06-23 18:00] VITALS: BP 102/56
[2018-06-24 06:29] VITALS: BP 120/72
[2018-06-24] MEDS: GABAPENTIN 300 MG CAP PO SCH ×3 (08:51→20:59)
[2018-06-24] MEDS: TAMSULOSIN 0.4 MG CAP PO SCH (08:51)
[2018-06-24] MEDS: PANTOPRAZOLE 40MG TAB (PROTONIX) PO SCH (08:51)
[2018-06-24 18:00] VITALS: BP 118/76
[2018-06-25 06:32] VITALS: BP 129/79
[2018-06-25] MEDS: GABAPENTIN 300 MG CAP PO SCH (09:00)
[2018-06-25] MEDS: PANTOPRAZOLE 40MG TAB (PROTONIX) PO SCH (09:00)
[2018-06-25] MEDS: TAMSULOSIN 0.4 MG CAP PO SCH (09:00)
--- NOTE | 2018-06-25 09:23 | MHIPN ---
DATE: 06/24/2018 I attempted seeing him this morning, he was fast asleep, and decided not to wake him up. He had been up afterwards, attempted to see him in the afternoon, again patient was fast asleep. Chart reviewed, I spoke with the nurse as well, and I would suggest continuing current care. He will be seen by the treatment team and the assigned psychiatrist tomorrow.
[2018-06-26] MEDS ORDERED: SERO50TA PO (00:38)
[2018-06-26] MEDS ORDERED: FLOM0.4C39 PO (00:38)
[2018-06-26] MEDS ORDERED: IPRA0.00 INH (00:38)
[2018-06-26] MEDS ORDERED: SERO1TAB2 PO (00:38)
[2018-06-26] MEDS ORDERED: HYDR50TA70 PO (00:38)
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
== END 2018-06-25 12:58 | disposition home or self-care (01) | DRG 776 ==
LOC: M ED 19:14 → M ED INP 22:12 → M PSY 23:20
PROVIDERS: ADMIT Psychiatry & Neurology Psychiatry; ATTEND Psychiatry & Neurology Psychiatry
DX: F15.14 Other stimulant abuse with stimulant-induced mood disorder (principal); F60.89 Other specific personality disorders; K21.9 Gastro-esophageal reflux disease without esophagitis; F17.200 Nicotine dependence, unspecified, uncomplicated; R30.0 Dysuria; N40.0 Benign prostatic hyperplasia without lower urinary tract symptoms; G89.29 Other chronic pain; Z81.1 Family history of alcohol abuse and dependence; Z81.3 Family history of other psychoactive substance abuse and dependence; Z81.8 Family history of other mental and behavioral disorders; Z91.5 Personal history of self-harm; Z79.899 Other long term (current) drug therapy

== ENCOUNTER 2018-06-25 18:08 | Inpatient (IN) | payer MEDICAID, OTHER ==
[~2018-06-25] VITALS: Ht 165.1 cm; Wt 59.6 kg
[~2018-06-25 18:08] MED LIST changes: +CITA20TA6 PO; +CLEO300C2 PO; +FLOM0.4C39 PO; +HYDR50CA2 PO
[2018-06-25 19:17] LABS: HEMATOCRIT 35.6 % (42.0-52.0); HEMOGLOBIN 11.6 g/dl (13.5-17.5); MEAN CORPUSCULAR HEMOGLOBIN 28.4 pg (27.0-33.0); MEAN CORPUSCULAR HGB CONC 32.6 g/dl (32.0-36.5); PLATELET COUNT, AUTOMATED 370 10^3/uL (150-450); RED BLOOD COUNT 4.09 10^6/uL (4.30-6.10); WHITE BLOOD COUNT 8.1 10^3/uL (4.0-10.0)
[2018-06-25 19:36] LABS: AMPHETAMINES LEVEL URINE NEGATIVE (NEGATIVE); BARBITURATES URINE NEGATIVE (NEGATIVE); BENZODIAZEPINES URINE NEGATIVE (NEGATIVE); CANNABINOIDS URINE NEGATIVE (NEGATIVE); COCAINE METABOLITE URINE NEGATIVE (NEGATIVE); METHADONE URINE NEGATIVE (NEGATIVE); OPIATES URINE NEGATIVE (NEGATIVE); PHENCYCLIDINE URINE NEGATIVE (NEGATIVE)
[2018-06-25 20:05] LABS: ACETAMINOPHEN LEVEL < 2.0 UG/ML (10.0-30.0); ALBUMIN 3.4 GM/DL (3.2-5.2); ALT/SGPT 270 U/L (12-78); BILIRUBIN,DIRECT 0.1 MG/DL (0.0-0.2); BILIRUBIN,TOTAL 0.3 MG/DL (0.2-1.0); BLOOD UREA NITROGEN 16 MG/DL (7-18); CALCIUM LEVEL 8.8 MG/DL (8.5-10.1); CARBON DIOXIDE LEVEL 29 MEQ/L (21-32); CHLORIDE LEVEL 105 MEQ/L (98-107); CREATININE FOR GFR 0.78 MG/DL (0.70-1.30); ETHYL ALCOHOL (ETHANOL) < 0.003 % (0.000-0.010); GLOMERULAR FILTRATION RATE > 60.0 (>60); GLUCOSE, FASTING 82 MG/DL (70-100); POTASSIUM SERUM 4.7 MEQ/L (3.5-5.1); SALICYLATE LEVEL < 1.7 MG/DL (5.0-30.0); SODIUM LEVEL 139 MEQ/L (136-145)
[2018-06-25] MEDS ORDERED: ACETAMINOPHEN TAB 650MG DOSE (2X325MG) PO PRN (23:45)
[2018-06-25] MEDS ORDERED: MAALOX 30 ML SUSP *UDC PO PRN (23:45)
[2018-06-25] MEDS ORDERED: MOM 30ML SUSPENSION UDC PO PRN (23:45)
[2018-06-26] MEDS ORDERED: HYDR50TA70 PO (00:38)
[2018-06-26] MEDS ORDERED: IPRA0.00 INH (00:38)
[2018-06-26] MEDS ORDERED: SERO50TA PO (00:38)
[2018-06-26] MEDS ORDERED: SERO1TAB2 PO (00:38)
[2018-06-26] MEDS ORDERED: FLOM0.4C39 PO (00:38)
[2018-06-26 01:47] VITALS: BP 127/92
[2018-06-26] MEDS: traZODone 50 MG TAB PO PRN ×2 (02:24→21:29)
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
[2018-06-26] MEDS: NICOTINE 21MG/24HR 1 EA TRANSDERMAL TD SCH (09:00)
[2018-06-26] MEDS: CitaloPRAM (CeleXA) 20 MG TAB PO SCH (09:07)
[2018-06-26] MEDS: GABAPENTIN 300 MG CAP PO SCH ×3 (09:07→21:28)
[2018-06-26] MEDS: PANTOPRAZOLE 40MG TAB (PROTONIX) PO SCH (09:07)
[2018-06-26] MEDS: TAMSULOSIN 0.4 MG CAP PO SCH (10:25)
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
[2018-06-26 18:00] VITALS: BP 124/71
[2018-06-26] MEDS: OLANZapine 10 MG TAB PO SCH (21:28)
[2018-06-26] MEDS: IBUPROFEN 600 MG TAB PO PRN (21:29)
[2018-06-26] MEDS: hydrOXYzine 50 MG TAB PO PRN (21:29)
[2018-06-27 06:34] VITALS: BP 105/58
[2018-06-27] MEDS: NICOTINE 21MG/24HR 1 EA TRANSDERMAL TD SCH (09:00)
[2018-06-27] MEDS: GABAPENTIN 300 MG CAP PO SCH ×3 (09:44→21:54)
[2018-06-27] MEDS: TAMSULOSIN 0.4 MG CAP PO SCH (09:44)
[2018-06-27] MEDS: PANTOPRAZOLE 40MG TAB (PROTONIX) PO SCH (09:44)
[2018-06-27] MEDS: CitaloPRAM (CeleXA) 20 MG TAB PO SCH (09:44)
[2018-06-27 18:00] VITALS: BP 123/80
[2018-06-27] MEDS: hydrOXYzine 50 MG TAB PO PRN (21:54)
[2018-06-27] MEDS: OLANZapine 10 MG TAB PO SCH (21:54)
[2018-06-27] MEDS: IBUPROFEN 600 MG TAB PO PRN (21:54)
[2018-06-27] MEDS: traZODone 50 MG TAB PO PRN (21:55)
[2018-06-28 07:08] VITALS: BP 103/55
[2018-06-28] MEDS: TAMSULOSIN 0.4 MG CAP PO SCH (09:00)
[2018-06-28] MEDS: GABAPENTIN 300 MG CAP PO SCH ×3 (09:00→21:11)
[2018-06-28] MEDS: PANTOPRAZOLE 40MG TAB (PROTONIX) PO SCH (09:00)
[2018-06-28] MEDS: CitaloPRAM (CeleXA) 20 MG TAB PO SCH (09:00)
[2018-06-28] MEDS: NICOTINE 21MG/24HR 1 EA TRANSDERMAL TD SCH (09:00)
--- NOTE | 2018-06-28 09:40 | MHIPNPDOC ---
[facility] Progress Note Progress Note DATE OF SERVICE: 06/27/18 HISTORY: Patient is a 48-year-old male, with a history of Bipolar disorder, substance abuse (amphetamine use), depression, Adjustment disorder with depressed/anxious mood who presents with reported suicidal ideation. Per ED notes: "PT was discharged from [facility] this afternoon and when he got home he states "they set up a meth lab right in front of my door to mess with me". PT feels that people in his building have been going into his apartment to cook meth and he doesn't know how they get in. He admits that he has actually seen them 1 or 2 times. PT is currently after 32 years of marriage "it happens" and states he attempted to shoot himself 6 months ago with a black powder rifle but it didn't work. If discharged PT states "It will end bad. I can't deal with them anymore and either they or I do". PT will not CFS at this time." During interview states when he returned home to his apartment in [place] he found "an active bottle" from "a neighbour's meth lab" in front of his door. Says he tried getting a hold of his , but there was no answer so he felt like jumping into the river and came here. Says he turned in his neighbor last F riday, calling the police. Stating he was having HI against his neighbor, "because I was sick of smelling his meth lab down the hallway". Endorses passive SI, Denies HI. Denies AVH, denies jon. VITAL SIGNS: See below. NEW TEST RESULTS: see below. CURRENT MEDICATIONS: See below. MENTAL STATUS EXAMINATION: General appearance: Patient is a 47-year old male, who is alert and oriented, in hospital clothing, thin, sitting in a chair Speech: Normal volume, normal rate and tone. Spontaneous and fluent Thought processes: linear, logical Thought content: Paranoid thoughts about someone wanting to kill him over drug related problems Description of associations: somewhat loose at this time Description of abnormal or psychotic thoughts: Paranoid and persecutory delusions. he is not responding to internal stimuli. He denies SI but he has HI although he is not telling me the name of the person/persons he wants to hurt. Judgment: Extremely poor. Insight: Poor. Orientation: x 3 Recent and remote memory: good Attention span and concentration: good Mood: Anxious Affect:congruent with mood DIAGNOSES: 1. Substance induced mood disorder vs. MDD 2. Polysubstance use disorder (stimulants, amphetamine) 3. Cluster B personality traits ASSESSMENT: Patient reports appetite is "fine", sleep is good. States he wants inpatient rehab or placement in shelter house. Denies medication side effects. States he's "pretty depressed". He was negative for amphetamines on admission, but had used on prior admission. Says losing family and communication/support from them is a major stressor. Denies active SI, denies HI, denies AVH/jon. Has been attending some groups. Denies medication side effects. MANAGEMENT PLAN: See above. TIME SPENT: 15 minutes. Vital Signs Vital Signs Date Time Temp Pulse Resp B/P (MAP) Pulse Ox O2 Delivery O2 Flow Rate FiO2 06/27/18 06:34 97.9 56 14 105/58 (74) 06/26/18 01:21 99 06/25/18 23:00 Room Air Current Medications Current Medications Acetaminophen (Tylenol Tab) 650 mg Q6HP PRN PO HEADACHE or DISCOMFORT; Start 06/25/18 at 23:45; Stop 06/26/18 at 17:06; Status DC Al Hydrox/Mg Hydrox/Simethicone (Mylanta) 30 ml Q4HP PRN PO HEARTBURN/INDIGESTION; Start 06/25/18 at 23:45 Citalopram Hydrobromide (CeleXA) 20 mg DAILY PO Last administered on 06/27/18at 09:44; Start 06/26/18 at 09:00 Gabapentin (Neurontin) 300 mg TID PO Last administered on 06/27/18at 09:44; Start 06/26/18 at 09:00 Home Med (Med Rec Complete!) ASDIRECTED XX ; Start 06/26/18 at 00:45; Stop 06/26/18 at 00:45; Status DC Hydroxyzine HCl (Atarax) 50 mg Q6HP PRN PO ANXIETY/AGITATION Last administered on 06/26/18at 21:29; Start 06/26/18 at 09:00 Ibuprofen (Advil) 600 mg Q6HP PRN PO MODERATE PAIN (PS 5-7) Last administered on 06/26/18at 21:29; Start 06/26/18 at 17:15 Magnesium Hydroxide (Milk Of Magnesia) 30 ml DAILYPRN PRN PO CONSTIPATION; Start 06/25/18 at 23:45 Nicotine (Nicoderm Cq 21mg) 1 patch DAILY TD ; Start 06/26/18 at 09:00 Olanzapine (ZyPREXA) 10 mg QPM PO Last administered on 06/26/18 21:28; Start 06/26/18 at 21:00 Pantoprazole Sodium (Protonix) 40 mg DAILY PO Last administered on 06/27/18 09:44; Start 06/26/18 at 09:00 Tamsulosin HCl (Flomax) 0.4 mg DAILY PO Last administered on 06/27/18 09:44; Start 06/26/18 at 09:00 Trazodone HCl (Desyrel) 50 mg QHSP PRN PO INSOMNIA Last administered on 06/26/18 21:29; Start 06/25/18 at 23:45 Allergies Coded Allergies: No Known Allergies (Unverified , 01/09/18) MARY BURDEN PGY-1 Jun 27, 2018 14:41
--- NOTE | 2018-06-28 09:50 | MHIPNPDOC ---
[facility] Progress Note Progress Note DATE OF SERVICE: 06/28/18 HISTORY: Patient is a 48-year-old male, with a history of Bipolar disorder, substance abuse (amphetamine use), depression, Adjustment disorder with depressed/anxious mood who presents with reported suicidal ideation. Per ED notes: "PT was discharged from [facility] this afternoon and when he got home he states "they set up a meth lab right in front of my door to mess with me". PT feels that people in his building have been going into his apartment to cook meth and he doesn't know how they get in. He admits that he has actually seen them 1 or 2 times. PT is currently after 32 years of marriage "it happens" and states he attempted to shoot himself 6 months ago with a black powder rifle but it didn't work. If discharged PT states "It will end bad. I can't deal with them anymore and either they or I do". PT will not CFS at this time." During interview states when he returned home to his apartment in [place] he found "an active bottle" from "a neighbour's meth lab" in front of his door. Says he tried getting a hold of his , but there was no answer so he felt like jumping into the river and came here. Says he turned in his neighbor last F riday, calling the police. Stating he was having HI against his neighbor, "because I was sick of smelling his meth lab down the hallway". Endorses passive SI, Denies HI. Denies AVH, denies jon. VITAL SIGNS: See below. NEW TEST RESULTS: see below. CURRENT MEDICATIONS: See below. MENTAL STATUS EXAMINATION: General appearance: Patient is a 47-year old male, who is alert and oriented, in hospital clothing, thin, sitting in a chair Speech: Normal volume, normal rate and tone. Spontaneous and fluent Thought processes: linear, logical Thought content: Paranoid thoughts about someone wanting to kill him over drug related problems Description of associations: somewhat loose at this time Description of abnormal or psychotic thoughts: Paranoid and persecutory delusions. he is not responding to internal stimuli. He denies SI but he has HI although he is not telling me the name of the person/persons he wants to hurt. Judgment: Extremely poor. Insight: Poor. Orientation: x 3 Recent and remote memory: good Attention span and concentration: good Mood: Less anxious, dysthymic Affect: congruent with mood, does not smile DIAGNOSES: 1. Substance induced mood disorder vs. MDD 2. Polysubstance use disorder (stimulants, amphetamine) 3. Cluster B personality traits ASSESSMENT: Continue medications: celexa 20 mg daily, gabapentin 300 mg TID, zyprexa 10 mg QHS, PRN trazodone 50 mg and PRN hydroxyzine for anxiety. Today he is continues to endorse depressed mood, states has not yet spoken [place] recovery services and the anticipation is cuasing mild anxiety. Says sleep was okay and wants trazodone dose increased. Explained that he has had low morning blood pressures and should not increase at this time and he is agreeable. LFTs in the 200's to re-ordered AM CMP, has hx of hepatitis B. Was counselled regarding substance use. Denies active SI, denies HI, denies AVH/jon. Has been attending some groups. Denies medication side effects. MANAGEMENT PLAN: See above. TIME SPENT: 10 minutes. Vital Signs Vital Signs Date Time Temp Pulse Resp B/P (MAP) Pulse Ox O2 Delivery O2 Flow Rate FiO2 06/28/18 07:08 98.0 56 16 103/55 (71) 06/26/18 01:21 99 06/25/18 23:00 Room Air Current Medications Current Medications Acetaminophen (Tylenol Tab) 650 mg Q6HP PRN PO HEADACHE or DISCOMFORT; Start 06/25/18 at 23:45; Stop 06/26/18 at 17:06; Status DC Al Hydrox/Mg Hydrox/Simethicone (Mylanta) 30 ml Q4HP PRN PO HEARTBURN/INDIGESTION; Start 06/25/18 at 23:45 Citalopram Hydrobromide (CeleXA) 20 mg DAILY PO Last administered on 06/27/18at 09:44; Start 06/26/18 at 09:00 Gabapentin (Neurontin) 300 mg TID PO Last administered on 06/27/18at 21:54; Start 06/26/18 at 09:00 Home Med (Med Rec Complete!) ASDIRECTED XX ; Start 06/26/18 at 00:45; Stop 06/26/18 at 00:45; Status DC Hydroxyzine HCl (Atarax) 50 mg Q6HP PRN PO ANXIETY/AGITATION Last administered on 06/27/18 21:54; Start 06/26/18 at 09:00 Ibuprofen (Advil) 600 mg Q6HP PRN PO MODERATE PAIN (PS 5-7) Last administered on 06/27/18 21:54; Start 06/26/18 at 17:15 Magnesium Hydroxide (Milk Of Magnesia) 30 ml DAILYPRN PRN PO CONSTIPATION; Start 06/25/18 at 23:45 Nicotine (Nicoderm Cq 21mg) 1 patch DAILY TD ; Start 06/26/18 at 09:00 Olanzapine (ZyPREXA) 10 mg QPM PO Last administered on 06/27/18 21:54; Start 06/26/18 at 21:00 Pantoprazole Sodium (Protonix) 40 mg DAILY PO Last administered on 06/27/18 09:44; Start 06/26/18 at 09:00 Tamsulosin HCl (Flomax) 0.4 mg DAILY PO Last administered on 06/27/18 09:44; Start 06/26/18 at 09:00 Trazodone HCl (Desyrel) 50 mg QHSP PRN PO INSOMNIA Last administered on 06/27/18 21:55; Start 06/25/18 at 23:45 Allergies Coded Allergies: No Known Allergies (Unverified , 01/09/18) MARY BURDEN PGY-1 Jun 28, 2018 08:03
[2018-06-28] MEDS: hydrOXYzine 50 MG TAB PO PRN (15:08)
[2018-06-28 18:01] VITALS: BP 113/66
[2018-06-28] MEDS: traZODone 50 MG TAB PO PRN (21:10)
[2018-06-28] MEDS: OLANZapine 10 MG TAB PO SCH (21:11)
[2018-06-29 06:19] VITALS: BP 119/67
[2018-06-29 08:12] LABS: ALBUMIN 3.3 GM/DL (3.2-5.2); ALT/SGPT 428 U/L (12-78); BILIRUBIN,TOTAL 0.3 MG/DL (0.2-1.0); BLOOD UREA NITROGEN 15 MG/DL (7-18); CALCIUM LEVEL 8.6 MG/DL (8.5-10.1); CARBON DIOXIDE LEVEL 27 MEQ/L (21-32); CHLORIDE LEVEL 107 MEQ/L (98-107); CREATININE FOR GFR 0.83 MG/DL (0.70-1.30); GLOMERULAR FILTRATION RATE > 60.0 (>60); GLUCOSE, FASTING 79 MG/DL (70-100); POTASSIUM SERUM 4.6 MEQ/L (3.5-5.1); SODIUM LEVEL 139 MEQ/L (136-145); TOTAL PROTEIN 6.7 GM/DL (6.4-8.2)
[2018-06-29] MEDS: NICOTINE 21MG/24HR 1 EA TRANSDERMAL TD SCH (09:00)
[2018-06-29] MEDS: CitaloPRAM (CeleXA) 20 MG TAB PO SCH (09:03)
[2018-06-29] MEDS: GABAPENTIN 300 MG CAP PO SCH (09:03)
[2018-06-29] MEDS: TAMSULOSIN 0.4 MG CAP PO SCH (09:03)
[2018-06-29] MEDS: hydrOXYzine 50 MG TAB PO PRN (09:03)
[2018-06-29] MEDS: PANTOPRAZOLE 40MG TAB (PROTONIX) PO SCH (09:03)
--- NOTE | 2018-06-29 11:56 | MHIPNPDOC ---
[facility] Progress Note Progress Note DATE OF SERVICE: 06/29/18 HISTORY: Patient is a 48-year-old male, with a history of Bipolar disorder, substance abuse (amphetamine use), depression, Adjustment disorder with depressed/anxious mood who presents with reported suicidal ideation. Per ED notes: "PT was discharged from [facility] this afternoon and when he got home he states "they set up a meth lab right in front of my door to mess with me". PT feels that people in his building have been going into his apartment to cook meth and he doesn't know how they get in. He admits that he has actually seen them 1 or 2 times. PT is currently after 32 years of marriage "it happens" and states he attempted to shoot himself 6 months ago with a black powder rifle but it didn't work. If discharged PT states "It will end bad. I can't deal with them anymore and either they or I do". 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. States he wants to leave [facility] to avoid substance users/environment he knows. Asked if he was avoiding anyone in particular, den ies this. Currently denies SI/HI/AVH/jon. Weight is lower range at BMI 19.2 kg/m2, so offered ensure adjunct to diet, which he agreed to. States zyprexa not helping control anxiety and wants d/c, BP has been stable, today 119/67 in the AM and agrees to re-start seroquel 300 QHS. D/c hydroxyzine and started PRN seroquel 50 TIDP for anxiety/agitation which he agrees to. VITAL SIGNS: See below. NEW TEST RESULTS: see below. LFTs trended up, ALT in 400's, AST in 200's. Ordered renal ultrasound. CURRENT MEDICATIONS: See below. MENTAL STATUS EXAMINATION: General appearance: Patient is a 47-year old male, who is alert and oriented, in hospital clothing, thin, sitting in a chair Speech: Normal volume, normal rate and tone. Spontaneous and fluent Thought processes: linear, logical Thought content: Paranoid thoughts about someone wanting to kill him over drug related problems Description of associations: somewhat loose at this time Description of abnormal or psychotic thoughts: Paranoid and persecutory delusions. he is not responding to internal stimuli. He denies SI but he has HI although he is not telling me the name of the person/persons he wants to hurt. Judgment: improving Insight: improving Orientation: x 3 Recent and remote memory: good Attention span and concentration: good Mood:euthymic Affect: congruent with mood, does not smile DIAGNOSES: 1. Substance induced mood disorder vs. MDD 2. Polysubstance use disorder (stimulants, amphetamine) 3. Cluster B personality traits ASSESSMENT: Continue medications: celexa 20 mg daily, d/c gabapentin 300 mg TID, started propanolol 10 mg PO TIDP for anxiety, d/c zyprexa 10 mg QHS, d/c PRN tra zodone 50 mg and d/c PRN hydroxyzine for anxiety. Started seroquel 300 mg PO QHS for anxiety, agitation and mood lability reported. PRN 50 mg TID seroquel for anxiety/agitation. Today states less depressed and appears euthymic with mild anxiety, looking forward to likely d/c Monday and inpatient rehab in [place]. Says sleep was again "okay" and appetite is good. LFTs trended up on repeat CMP, ordered renal ultrasound, has hx of hepatitis B. Was counselled regarding substance use. Denies active SI, denies HI, denies AVH/jon. Has been attending most groups today. Denies medication side effects. Plan for possible medicine consult, please f/u recs. Liver U/S and hepatitis panel ordered, results pending. MANAGEMENT PLAN: See above. TIME SPENT: 20 minutes. Vital Signs Vital Signs Date Time Temp Pulse Resp B/P (MAP) Pulse Ox O2 Delivery O2 Flow Rate FiO2 06/29/18 06:19 98.3 60 18 119/67 (84) 06/26/18 01:21 99 06/25/18 23:00 Room Air Laboratory Data 24H Labs Laboratory Tests 2 06/29/18 07:14: Anion Gap 5L, Glomerular Filtration Rate > 60.0, Blood Urea Nitrogen 15, Creatinine 0.83, Sodium Level 139, Potassium Level 4.6, Chloride Level 107, Carbon Dioxide Level 27, Calcium Level 8.6, Aspartate Amino Transf (AST/SGOT) 259H, Alanine Aminotransferase (ALT/SGPT) 428H, Alkaline Phosphatase 99, Total Bilirubin 0.3, Total Protein 6.7, Albumin 3.3, Albumin/Globulin Ratio 0.97L CBC/BMP Laboratory Tests 06/29/18 07:14 Calcium Level 8.6, Aspartate Amino Transf (AST/SGOT) 259 H, Alanine Aminotransferase (ALT/SGPT) 428 H, Alkaline Phosphatase 99, Total Bilirubin 0.3, Total Protein 6.7, Albumin 3.3 Current Medications Current Medications Acetaminophen (Tylenol Tab) 650 mg Q6HP PRN PO HEADACHE or DISCOMFORT; Start 06/25/18 at 23:45; Stop 06/26/18 at 17:06; Status DC Al Hydrox/Mg Hydrox/Simethicone (Mylanta) 30 ml Q4HP PRN PO HEARTBURN/INDIGESTION; Start 06/25/18 at 23:45 Citalopram Hydrobromide (CeleXA) 20 mg DAILY PO Last administered on 06/29/18at 09:03; Start 06/26/18 at 09:00 Gabapentin (Neurontin) 300 mg TID PO Last administered on 06/29/18at 09:03; Start 06/26/18 at 09:00 Home Med (Med Rec Complete!) ASDIRECTED XX ; Start 06/26/18 at 00:45; Stop 06/26/18 at 00:45; Status DC Hydroxyzine HCl (Atarax) 50 mg Q6HP PRN PO ANXIETY/AGITATION Last administered on 06/29/18at 09:03; Start 06/26/18 at 09:00; Stop 06/29/18 at 11:38; Status DC Ibuprofen (Advil) 600 mg Q6HP PRN PO MODERATE PAIN (PS 5-7) Last administered on 06/27/18at 21:54; Start 06/26/18 at 17:15 Magnesium Hydroxide (Milk Of Magnesia) 30 ml DAILYPRN PRN PO CONSTIPATION; Start 06/25/18 at 23:45 Nicotine (Nicoderm Cq 21mg) 1 patch DAILY TD ; Start 06/26/18 at 09:00 Olanzapine (ZyPREXA) 10 mg QPM PO Last administered on 06/28/18at 21:11; Start 06/26/18 at 21:00; Stop 06/29/18 at 11:38; Status DC Pantoprazole Sodium (Protonix) 40 mg DAILY PO Last administered on 06/29/18at 09:03; Start 06/26/18 at 09:00 Quetiapine Fumarate (SEROquel) 50 mg TIDP PO ; Start 06/29/18 at 11:45; Status UNV Quetiapine Fumarate (SEROquel) 300 mg QHS PO ; Start 06/29/18 at 21:00 Tamsulosin HCl (Flomax) 0.4 mg DAILY PO Last administered on 06/29/18at 09:03; Start 06/26/18 at 09:00 Trazodone HCl (Desyrel) 50 mg QHSP PRN PO INSOMNIA Last administered on 06/28/18at 21:10; Start 06/25/18 at 23:45 Allergies Coded Allergies: No Known Allergies (Unverified , 01/09/18) MARY UBRDEN PGY-1 Jun 29, 2018 11:56
[2018-06-29 13:25] LABS: HEPATITIS C VIRUS ABY INDEX > 11.0 INDEX (<0.8)
[2018-06-29 14:44] LABS: HEPATITIS A ANTIBODY IGM NEGATIVE (NEGATIVE); HEPATITIS B CORE ANTIBODY IGM NEGATIVE (NEGATIVE); HEPATITIS B SURFACE ANTIGEN NEGATIVE (NEGATIVE)
[2018-06-29] MEDS: QUEtiapine FUMARATE 50 MG TAB PO PRN (15:45)
[2018-06-29] MEDS: PROPRANOLOL 10 MG TAB PO PRN (15:45)
[2018-06-29 18:08] VITALS: BP 130/84
[2018-06-29] MEDS: QUEtiapine FUMARATE 100 MG TAB PO SCH (20:19)
[2018-06-30 06:57] VITALS: BP 107/57
[2018-06-30] MEDS: NICOTINE 21MG/24HR 1 EA TRANSDERMAL TD SCH (09:00)
--- NOTE | 2018-06-30 09:08 | REP ---
LIVER ULTRASOUND: HISTORY: Elevated LFTs. COMPARISON: 04/24/2018. There are no filling defects in the gallbladder. The common bile duct measures 7.5 mm which is upper normal in size. There is fatty infiltration of the liver. The pancreas is normal in echogenicity. The right kidney measures 5 cm in transverse by 4.8 cm in AP by 10.9 cm in cephalocaudal dimensions. There is no hydronephrosis or mass. IMPRESSION: There is fatty infiltration of the liver. Electronically Signed by Filemon Mart MD 06/30/2018 09:19 A
[2018-06-30] MEDS: PANTOPRAZOLE 40MG TAB (PROTONIX) PO SCH (09:48)
[2018-06-30] MEDS: TAMSULOSIN 0.4 MG CAP PO SCH (09:48)
[2018-06-30] MEDS: CitaloPRAM (CeleXA) 20 MG TAB PO SCH (09:49)
[2018-06-30] MEDS: QUEtiapine FUMARATE 50 MG TAB PO PRN (15:17)
[2018-06-30 18:19] VITALS: BP 116/63
[2018-06-30] MEDS: traZODone 100 MG TAB PO PRN (20:47)
[2018-06-30] MEDS: QUEtiapine FUMARATE 100 MG TAB PO SCH (20:47)
[2018-07-01 06:54] VITALS: BP 106/67
[2018-07-01 08:02] LABS: ALBUMIN 3.1 GM/DL (3.2-5.2); ALT/SGPT 343 U/L (12-78); BILIRUBIN,DIRECT < 0.1 MG/DL (0.0-0.2); BILIRUBIN,TOTAL 0.3 MG/DL (0.2-1.0); TOTAL PROTEIN 6.3 GM/DL (6.4-8.2)
[2018-07-01] MEDS: NICOTINE 21MG/24HR 1 EA TRANSDERMAL TD SCH (09:00)
[2018-07-01] MEDS: CitaloPRAM (CeleXA) 20 MG TAB PO SCH (09:53)
[2018-07-01] MEDS: TAMSULOSIN 0.4 MG CAP PO SCH (09:53)
[2018-07-01] MEDS: PANTOPRAZOLE 40MG TAB (PROTONIX) PO SCH (09:53)
--- NOTE | 2018-07-01 11:13 | REP ---
RIGHT UPPER EXTREMITY DUPLEX VEINS: HISTORY: Right forearm mass. COMPARISON: 02/14/2018 The cephalic vein is not seen. A tiny amount of nonocclusive thrombus is present in the basilic vein just proximal to the median cubital vein. There are no filling defects in the remaining deep venous system. IMPRESSION: There is a tiny amount of nonocclusive thrombus in the basilic vein just proximal to the median cubital vein. Electronically Signed by Filemon Mart MD 07/01/2018 11:21 A
[2018-07-01] MEDS: PROPRANOLOL 10 MG TAB PO PRN ×2 (14:05→20:24)
[2018-07-01] MEDS: QUEtiapine FUMARATE 50 MG TAB PO PRN (14:05)
--- NOTE | 2018-07-01 15:56 | IPNPDOC ---
Text Note Date of Service The patient was seen on 07/01/18. NOTE Subjective: Patient is a 48-year-old children was continued admitted to inpatient mental health unit for suicidal ideation. On 06/30 patient was complaining of right arm tenderness and he received an US of his R arm which revealed a non-occlusive thrombus of his R basilic vein. Patient was seen and examined at the bedside. Currently, he denies chest pain, shortness breath or palpitations. Denies nausea, vomiting, abdominal pain, constipation, diarrhea, or urinary discomfort. Patient reports that his right arm experiences tenderness only on touching pain on deep palpation. As been ambulating without any difficulties. Objective: Vitals (See below) General: Lying in bed, no acute distress, comfortable, AAOx3 HEENT: NC, AT CVS: RRR, +S1S2 Lungs: Fair air entry b/l, -w/r/r Abdomen: Soft, ND, NT Extremities: - Edema, - Calf tenderness, R basilic vein tenderness, no warmth / redness Assessment and plan: R arm with tenderness at medial aspect - likely 2/2 R basilic vein thrombus - likely 2/2 pervious catheter site - Patient has reported that he had an IV site in the not too distant past in [place] - Duplex US RUE 07/01: There is a tiny amount of nonocclusive thrombus in the basilic vein just proximal to the median cubital vein. - Will start anti-inflammatory medication for pain control - Will start warm compresses Abnormal LFTs in setting of history of hepatitis B: - Hepatitis panel positive for Hep C antibodies; HCV RNA pending - Liver US 06/30: There is fatty infiltration of the liver. - Advised patient to avoid alcohol and acetaminophen - Advised outpatient follow up and periodic monitoring of LFTS - Patient will require outpatient follow up for lab results - Suggest outpatient follow up with Infectious disease BPH - c/w Tamsulosin Suicidal ideation - Management per Psychiatry IV drug use - Patient has been counseled about cessation Nicotine dependence/cigarette smoking - Advised smoking cessation - c/w Nicotine patch GERD - c/w Protonix DVT prophylaxis - c/w early ambulation VS,Fishbone, I+O VS, Fishbone, I+O Vital Signs Date Time Temp Pulse Resp B/P (MAP) Pulse Ox O2 Delivery O2 Flow Rate FiO2 07/01/18 14:05 76 116/80 07/01/18 07:38 Room Air 07/01/18 06:54 97.2 16 06/26/18 01:21 99 ASHER FUENTES MD Jul 01, 2018 15:56
[2018-07-01] MEDS: IBUPROFEN 600 MG TAB PO PRN (15:57)
[2018-07-01 18:33] VITALS: BP 99/69
[2018-07-01] MEDS: QUEtiapine FUMARATE 100 MG TAB PO SCH (20:23)
[2018-07-01] MEDS: traZODone 100 MG TAB PO PRN (20:24)
[2018-07-02 06:46] VITALS: BP 115/62
[2018-07-02] MEDS: NICOTINE 21MG/24HR 1 EA TRANSDERMAL TD SCH (09:00)
[2018-07-02] MEDS: TAMSULOSIN 0.4 MG CAP PO SCH (09:36)
[2018-07-02] MEDS: CitaloPRAM (CeleXA) 20 MG TAB PO SCH (09:36)
[2018-07-02] MEDS: PANTOPRAZOLE 40MG TAB (PROTONIX) PO SCH (09:36)
[2018-07-02] MEDS: QUEtiapine FUMARATE 50 MG TAB PO PRN (09:36)
[2018-07-02 10:25] VITALS: BP 112/75
[2018-07-02] MEDS: PROPRANOLOL 10 MG TAB PO PRN (10:25)
[2018-07-02] MEDS ORDERED: QUET5TAB PO (10:50)
[2018-07-02] MEDS ORDERED: NICO21PAT TD (10:50)
[2018-07-02] MEDS ORDERED: PROP10TA56 PO (10:50)
[2018-07-02] MEDS ORDERED: QUET1TAB8 PO (10:50)
[2018-07-02] MEDS ORDERED: TRAZ10TA PO (10:50)
[2018-07-02] MEDS ORDERED: IBUP-1114 PO (10:55)
--- NOTE | 2018-07-03 09:55 | MHIPN ---
DATE OF SERVICE: 06/30/2018 The patient today states "I am doing good." He did say that he did not sleep well last night. He said he had tried his trazodone the first night he came in but then it was discontinued, although he felt that it was affective. He is denying suicidal ideations. MENTAL STATUS EXAM: The patient is alert, oriented times three. Eye contact is fairy good, verbally spontaneous. There is no formal thought disorder noted. Mood is good, affect is full range and appropriate. He is not psychotic, suicidal or homicidal. Concentration and memory is good. Insight and judgment good. DIAGNOSES: 1. Substance induced mood disorder versus major depressive disorder. 2. Polysubstance use disorder (stimulants, amphetamines) and cluster B personality traits. TREATMENT PLAN: We will continue to monitor the patient for continued elevation and stabilization of his mood and continue with resolution of suicidal ideation.
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
--- NOTE | 2018-07-03 21:50 | IPN ---
DATE: 06/30/2018 Progress note on Hunter Leone, a 48-year-old male admitted to the inpatient mental health unit on 06/25/2018 with a history of bipolar disorder, substance abuse amphetamine, depression, adjustment disorder, depressed and anxious moods, who was admitted after reporting suicidal ideations. He is being seen today as he states he has a cyst or mass or he feels is a piece of plastic from an intravenous (IV) in his right upper arm. He also has elevated liver enzymes, which continue to trend up. His AST today is 250. AST yesterday was 259, ALT was 428. He had a liver ultrasound which showed that he has fatty infiltration of the liver. He has been having no pain. LABORATORY STUDIES: A hepatitis C virus (HCV) RNA is pending. Discussed with the patient and he will get it followed up on and in outpatient treatment for hepatitis if needed. He is going, he states, to rehabilitation on Monday. He has no complaints of pain in his right upper arm. No redness. No decreased range of motion. OBJECTIVE: Patient is alert and oriented times three. Blood pressure 116/63, pulse 78, respirations 16, temperature 98. Pharynx, tongue, gums pink and moist. Tongue is midline. NECK: Supple without lymphadenopathy, thyromegaly or goiter. CHEST: Clear to auscultation. HEART: Regular. ABDOMEN: Soft, nontender. No masses, pulsations or bruits. No organomegaly. Bowel sounds are positive. GENITOURINARY ()/RECTAL: Not done. EXTREMITIES: No cyanosis, clubbing or edema. Right upper arm, just above antecubital space, is a palpable cyst or mass. No redness or drainage. Peripheral pulses equal and palpable bilaterally. SKIN: Warm and dry. IMPRESSION/PLAN: 1. Psychiatric plan per psychiatry. 2. Elevated liver enzymes. Will get a repeat liver panel in the a.m. Follow up on hepatitis C virus (HCV) RNA. Patient will require outpatient treatment if positive. 3. Questionable mass or cyst, right upper arm. Will get an ultrasound. 4. Continue other medicines and plan of care without change.
== END 2018-07-02 12:30 | disposition home or self-care (01) | DRG 776 ==
LOC: M ED 18:08 → M ED INP 23:41 → M PSY 06-26 01:40
PROVIDERS: ADMIT Psychiatry & Neurology Psychiatry; ATTEND Psychiatry & Neurology Psychiatry
DX: F15.14 Other stimulant abuse with stimulant-induced mood disorder (principal); I82.611 Acute embolism and thrombosis of superficial veins of right upper extremity; F31.9 Bipolar disorder, unspecified; F60.89 Other specific personality disorders; F17.210 Nicotine dependence, cigarettes, uncomplicated; Z81.8 Family history of other mental and behavioral disorders; Z81.1 Family history of alcohol abuse and dependence; Z79.899 Other long term (current) drug therapy; N40.0 Benign prostatic hyperplasia without lower urinary tract symptoms; K21.9 Gastro-esophageal reflux disease without esophagitis; F41.9 Anxiety disorder, unspecified

== ENCOUNTER 2018-07-13 10:28 | Inpatient (IN) | payer MEDICAID, OTHER ==
[~2018-07-13] VITALS: Ht 165.1 cm; Wt 60.6 kg
[~2018-07-13 10:28] MED LIST changes: +IBUP-1114 PO; +IPRA0.00 INH; +PROP10TA56 PO; +QUET5TAB PO; +SERO1TAB2 PO; +SERO50TA PO; +TRAZ10TA PO
[2018-07-13] MEDS ORDERED: ZYPR10TA PO (10:44)
[2018-07-13] MEDS ORDERED: ZOLO100T PO ×2 (10:44→10:48)
[2018-07-13] MEDS ORDERED: ADACEL/BOOSTRIX VACCINE (DIPHTH/PERTUSS/ACELL/TETANUS)0.5ML SYR (90715) IM ONE (11:00)
[2018-07-13 11:08] LABS: HEMOGLOBIN 12.1 g/dl (13.5-17.5); MEAN CORPUSCULAR HEMOGLOBIN 27.9 pg (27.0-33.0); MEAN CORPUSCULAR HGB CONC 32.7 g/dl (32.0-36.5); MEAN CORPUSCULAR VOLUME 85.3 fl (80.0-96.0); PLATELET COUNT, AUTOMATED 412 10^3/uL (150-450); RED BLOOD COUNT 4.34 10^6/uL (4.30-6.10); WHITE BLOOD COUNT 8.8 10^3/uL (4.0-10.0)
[2018-07-13 11:34] LABS: AMPHETAMINES LEVEL URINE NEGATIVE (NEGATIVE); BARBITURATES URINE NEGATIVE (NEGATIVE); BENZODIAZEPINES URINE NEGATIVE (NEGATIVE); CANNABINOIDS URINE NEGATIVE (NEGATIVE); COCAINE METABOLITE URINE NEGATIVE (NEGATIVE); METHADONE URINE NEGATIVE (NEGATIVE); OPIATES URINE NEGATIVE (NEGATIVE); PHENCYCLIDINE URINE NEGATIVE (NEGATIVE)
[2018-07-13 11:51] LABS: ACETAMINOPHEN LEVEL < 2.0 UG/ML (10.0-30.0); ALBUMIN 3.9 GM/DL (3.2-5.2); ALT/SGPT 219 U/L (12-78); BILIRUBIN,DIRECT 0.2 MG/DL (0.0-0.2); BILIRUBIN,TOTAL 0.7 MG/DL (0.2-1.0); BLOOD UREA NITROGEN 11 MG/DL (7-18); CALCIUM LEVEL 9.4 MG/DL (8.5-10.1); CARBON DIOXIDE LEVEL 30 MEQ/L (21-32); CHLORIDE LEVEL 104 MEQ/L (98-107); CREATININE FOR GFR 0.89 MG/DL (0.70-1.30); ETHYL ALCOHOL (ETHANOL) < 0.003 % (0.000-0.010); GLOMERULAR FILTRATION RATE > 60.0 (>60); GLUCOSE, FASTING 115 MG/DL (70-100); SALICYLATE LEVEL < 1.7 MG/DL (5.0-30.0); SODIUM LEVEL 139 MEQ/L (136-145); TOTAL PROTEIN 7.9 GM/DL (6.4-8.2)
[2018-07-13] MEDS ORDERED: TRAZ-163 PO (14:09)
[2018-07-13] MEDS ORDERED: QUET5TAB PO (14:09)
[2018-07-13] MEDS ORDERED: QUET1TAB10 PO (14:09)
[2018-07-13] MEDS ORDERED: PATIENT COMMENTS (14:11)
[2018-07-13] MEDS ORDERED: traZODone 50 MG TAB PO PRN (15:00)
[2018-07-13] MEDS ORDERED: MOM 30ML SUSPENSION UDC PO PRN (15:00)
[2018-07-13] MEDS ORDERED: IBUPROFEN 400 MG TAB PO PRN (15:00)
[2018-07-13] MEDS ORDERED: MAALOX 30 ML SUSP *UDC PO PRN (15:00)
[2018-07-13 15:35] VITALS: BP 140/93
[2018-07-13] MEDS: NICOTINE 21MG/24HR 1 EA TRANSDERMAL TD SCH (16:29)
[2018-07-13] MEDS: OLANZapine 10 MG TAB PO SCH (20:27)
[2018-07-13] MEDS: QUEtiapine FUMARATE 100 MG TAB PO SCH (20:27)
[2018-07-14 06:37] VITALS: BP 105/62
[2018-07-14] MEDS: NICOTINE 21MG/24HR 1 EA TRANSDERMAL TD SCH (08:19)
[2018-07-14] MEDS: QUEtiapine FUMARATE 50 MG TAB PO PRN (08:20)
[2018-07-14] MEDS: CitaloPRAM (CeleXA) 20 MG TAB PO SCH (08:20)
[2018-07-14] MEDS: TAMSULOSIN 0.4 MG CAP PO SCH (08:20)
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
[2018-07-14 18:10] VITALS: BP 111/68
[2018-07-14] MEDS: OLANZapine 10 MG TAB PO SCH (21:42)
[2018-07-14] MEDS: QUEtiapine FUMARATE 100 MG TAB PO SCH (21:43)
[2018-07-15 06:51] VITALS: BP 120/67
[2018-07-15] MEDS: NICOTINE 21MG/24HR 1 EA TRANSDERMAL TD SCH (08:20)
[2018-07-15] MEDS: TAMSULOSIN 0.4 MG CAP PO SCH (08:21)
[2018-07-15] MEDS: QUEtiapine FUMARATE 50 MG TAB PO PRN ×2 (08:21→16:56)
[2018-07-15] MEDS: CitaloPRAM (CeleXA) 20 MG TAB PO SCH (08:21)
--- NOTE | 2018-07-15 09:07 | MHIPNPDOC ---
[facility] Progress Note Progress Note DATE OF SERVICE: 07/15/18 HISTORY: Patient is a 48 -year-old , male, with a history of depression, amphetamine use d/o, cluster B traits, multiple admits [facility] for SI who presented to ED stating he cut his left arm with a razor due to just "wanting it all to be over with" after he came home for completing 21day rehab and found divorce papers taped to his door. Pt also endorsed psychosocial stressors of his daughter delivering his still born daughter 2wks ago and having a studio apt with nothing in it including bed sheets, towels, etc in the ED. Pt endorsed cognitive distortions of feeling like he has nothing to live for and that even though he's doing everything right in his life (currently sober) it still isn't going well per ED. He endorsed SI in the ED stating he had nothing to live for anymore. VITAL SIGNS: See below. NEW TEST RESULTS: See below. CURRENT MEDICATIONS: See below. MENTAL STATUS EXAMINATION: General Appearance: well groomed, appears stated age, hospital scrubs/clothing Build: average Demeanor: withdrawn Eye Contact: fair Activity: less anxious Behavior: cooperative, withdrawn Speech: clear, spontaneous, reg/rate,rhythm,volume Mood: depressed, less anxious Mood "alright" Affect: constricted, flat, congruent, less anxious Thought Process: logical/linear, depressed, intact Thought Content (Delusions): none reported, denies SI, HI, AVH (currently) Thought Content (Other): none reported Thought Content (Aggressive): none reported Perception (Hallucinations): none reported Perception (Other): none reported Cognition (Impairment of): none reported Cognition(Intelligence Est.): average Oriented: Awake, Alert, Oriented times three Judgment: Fair Insight: fair DIAGNOSES: Depression Unspecified R/O adjustment d/o with depressed mood Polysubstance use disorder (stimulants, amphetamine) in short remission Cluster B personality traits ASSESSMENT:Pt seen and states that his mood is "alright" and his mood is a bit improved. Endorses fatigue during the day and is wondering if there's anything that can help that. Advised him that his seroquel he takes during the day is sedating but denies he thinks that's the cause stating "it keeps me more awake." Celexa can cause fatigue to agreeable to changing it to at night dosing. States he slept well last night. Feels he is tolerating his medications and they're beneficial. He is attending groups and finding them helpful. He denies depression, anxiety, insomnia, SI/HI, hallucinations, delusions. Pt feels safe here. MANAGEMENT PLAN: change celexa to at night dosing TIME SPENT: 30 minutes. Vital Signs Vital Signs Date Time Temp Pulse Resp B/P (MAP) Pulse Ox O2 Delivery O2 Flow Rate FiO2 07/15/18 06:51 98.4 69 16 120/67 (84) 07/13/18 15:35 98 07/13/18 15:14 Room Air Current Medications Current Medications Al Hydrox/Mg Hydrox/Simethicone (Mylanta) 30 ml Q4HP PRN PO HEARTBURN/INDIGESTION; Start 07/13/18 at 15:00 Citalopram Hydrobromide (CeleXA) 20 mg DAILY PO Last administered on 07/15/18 08:21; Start 07/14/18 at 09:00 Home Med (Med Rec Complete!) ASDIRECTED XX ; Start 07/13/18 at 14:15; Stop 07/13/18 at 14:15; Status DC Ibuprofen (Advil) 400 mg Q6HP PRN PO PAIN Last administered on 07/13/18at 16:31; Start 07/13/18 at 15:00 Magnesium Hydroxide (Milk Of Magnesia) 30 ml DAILYPRN PRN PO CONSTIPATION; Start 07/13/18 at 15:00 Nicotine (Nicoderm Cq 21mg) 1 patch DAILY TD ; Start 07/13/18 at 09:00 Olanzapine (ZyPREXA) 10 mg QPM PO Last administered on 07/14/18 21:42; Start 07/13/18 at 21:00 Quetiapine Fumarate (SEROquel) 50 mg TIDP PRN PO ANXIETY/AGITATION Last administered on 07/15/18 08:21; Start 07/13/18 at 17:00 Quetiapine Fumarate (SEROquel) 300 mg QHS PO Last administered on 07/14/18 21:43; Start 07/13/18 at 21:00 Tamsulosin HCl (Flomax) 0.4 mg DAILY PO Last administered on 5/12/19at 08:21; Start 07/14/18 at 09:00 Trazodone HCl (Desyrel) 50 mg QHSP PRN PO INSOMNIA; Start 07/13/18 at 15:00; Status Cancel Trazodone HCl (Desyrel) 100 mg QHSP PRN PO INSOMNIA; Start 07/13/18 at 17:00 Allergies Coded Allergies: No Known Allergies (Unverified , 01/09/18) A-FIB/CHADSVASC A-FIB History Current/History of A-Fib/PAF?: No Current Oral Anticoagulant The: No Treatment Treatment ordered: NONE Reason Anticoagulant not given: Not indicated/[id number] ONEIDA RAMAN DO July 15, 2018 09:07
--- NOTE | 2018-07-15 13:46 | HPEPDOC ---
General Date of Admission July 13, 2018 at 14:57 Attending Physician: COLTON SHER MD Chief Complaint The patient is a 48-year-old male admitted with a reason for visit of Unsp ecified Depressive Disorder. Source: Patient Exam Limitations: No limitations Timing/Duration: Other Severity: Other (not applicable) Associated Symptoms: Other (not applicable) History of Present Illness 48 years old white male with past medical history of schizophrenia admitted with suicidal intentions and thoughts. We were called in for medical and H&P. Patient offers no new complaints. No shortness of breath, chest pain, nausea, vomiting, diarrhea motor or sensory deficit, etc. Home Medications Scheduled Olanzapine (Zyprexa) 10 Mg Tablet, 10 MG PO DAILY, (Reported) Quetiapine Fumarate (Quetiapine Fumarate) 50 Mg Tablet, 50 MG PO TID, (Reported) Quetiapine Fumarate (Quetiapine Fumarate) 300 Mg Tablet, 300 MG PO QHS, (Reported) Sertraline Hcl (Zoloft) 100 Mg Tablet, 100 MG PO DAILY, (Reported) Tamsulosin HCl (Flomax) 0.4 Mg Capsule, 0.4 MG PO DAILY, (Reported) Trazodone HCl (Trazodone HCl) 100 Mg Tablet, 100 MG PO QPM, (Reported) Miscellaneous Medications [Patient Comments] , (Reported) THERE ARE NO ACTIVE PRESCRIPTIONS FOR THE LISTED MEDICATIONS, LAST FILL AT [facility] WAS 05/04/2018. ALTERNATE PHARMACY HAS NOT FILLED ANY MEDICATIONS FOR PAST 18 MONTHS Allergies Coded Allergies: No Known Allergies (Unverified , 01/09/18) Past Medical History Medical History History of hepatitis C recently diagnosed about 2 months ago, on no treatment Surgical History Appendectomy Family History Significant Family History: Other (schizophrenia) Social History * Smoker: current smoker, cigarettes Alcohol: Denies Drugs: denies A-FIB/CHADSVASC A-FIB History Current/History of A-Fib/PAF?: No Review of Systems Constitutional: Denies: Chills, Fever, Malaise, Night Sweats, Weakness, Fatigue, Weight Loss, Lethargy, Other Eyes: Denies: Pain, Vision change, Conjunctivae inflammation, Eyelid inflammation, Redness, Other ENT: Denies: Head Aches, Ear Pain, Dysphagia, Sinus Congestion, Post Nasal Drip, Sore Throat, Epistaxis, Other Symptoms Skin: Denies: Rash, Lesions, Jaundice, Bruising, Itching, Dry, Breakdown, Nail Changes, Other Pulmonary: Denies: Dyspnea, Cough, Pleuritic Chest Pain, Other Symptoms Cardiovascular: Denies: Chest Pain, Palpitations, Orthopnea, Paroxysmal Noc. Dyspnea, Edema, Lt Headedness, Other Symptoms Gastrointestinal: Denies: Nausea, Vomiting, Abdominal Pain, Diarrhea, Constipation, Melena, Hematochezia, Other Symptoms Genitourinary: Denies: Dysuria, Frequency, Incontinence, Hematuria, Retention, Other Symptoms Hematologic: Denies: Bruising, Bleeding Excessively, Petecchia, Purpura, Enlarged Lymph Nodes, Other Hematologic Endocrine: Denies: Polydipsia, Polyphagia, Polyuria, Heat Intolerance, Cold Intolerance, Other Endocrine Sx Musculoskeletal: Denies: Neck Pain, Back Pain, Shoulder Pain, Arm Pain, Hand Pain, Leg Pain, Foot Pain, Joint Pain, Muscle Pain, Spasms, Other Symptoms Neurological: Denies: Weakness, Numbness, Incoordination, Change in speech, Confusion, Seizures, Other Symptoms Psych: Denies: Mood Normal, Anxiety, Depression, Memory Issues, Thoughts of Self Harm, Anger, Thoughts of Harming Other, Other Psych Physical Examination General Exam: Positive: Alert, Cooperative, No Acute Distress Eye Exam: Positive: PERRLA, Conjunctiva & lids normal ENT Exam: Positive: Atraumatic, Mucous membr. moist/pink Neck Exam: Positive: Supple Chest Exam: Positive: Clear to auscultation, Normal air movement Heart Exam: Positive: Rate Normal, Normal S1, Normal S2 Abdomen Exam: Positive: Normal bowel sounds, Soft, Tenderness Extremity Exam: Positive: Normal pulses Skin Exam: Positive: Nl turgor and temperature Neuro Exam: Positive: Normal Gait, Normal Speech Psych Exam: Positive: Mental status NL, Mood NL, Oriented x 3 Vital Signs Vital Signs Date Time Temp Pulse Resp B/P (MAP) Pulse Ox O2 Delivery O2 Flow Rate FiO2 07/15/18 06:51 98.4 69 16 120/67 (84) 07/13/18 15:35 98 07/13/18 15:14 Room Air Problems (1) Hep C w/o coma, chronic Status: Chronic Problem Text: Follow-up with GI clinic once cleared from the psych unit Will try drop in old records and is ascertain the disease status. (2) Suicidal ideations Status: Acute Problem Text: History of schizophrenia and is also has a history of multiple suicidal attempts. Further, as per psychiatric attending Plan / VTE VTE Prophylaxis Ordered?: No VTE Exclusion Mechanical Proph: Low Risk for VTE COLTON SHER MD July 15, 2018 13:46
[2018-07-15 17:26] VITALS: BP 116/73
[2018-07-15] MEDS: traZODone 100 MG TAB PO PRN (20:28)
[2018-07-15] MEDS: QUEtiapine FUMARATE 100 MG TAB PO SCH (20:28)
[2018-07-15] MEDS: OLANZapine 10 MG TAB PO SCH (20:28)
[2018-07-16 06:50] VITALS: BP 117/70
[2018-07-16] MEDS: NICOTINE 21MG/24HR 1 EA TRANSDERMAL TD SCH (09:00)
[2018-07-16] MEDS: TAMSULOSIN 0.4 MG CAP PO SCH (09:36)
--- NOTE | 2018-07-16 15:28 | MHIPNPDOC ---
[facility] Progress Note Progress Note DATE OF SERVICE: 07/16/18 HISTORY: Patient is a 48 -year-old , male, with a history of depression, amphetamine use d/o, cluster B traits, multiple admits [facility] for SI who presented to ED stating he cut his left arm with a razor due to just "wanting it all to be over with" after he came home for completing 21day rehab and found divorce papers taped to his door. Pt also endorsed psychosocial stressors of his daughter delivering his still born daughter 2wks ago and having a studio apt with nothing in it including bed sheets, towels, etc in the ED. Pt endorsed cognitive distortions of feeling like he has nothing to live for and that even though he's doing everything right in his life (currently sober) it still isn't going well per ED. He endorsed SI in the ED stating he had nothing to live for anymore. VITAL SIGNS: See below. NEW TEST RESULTS: See below. CURRENT MEDICATIONS: See below. MENTAL STATUS EXAMINATION: General Appearance: well groomed, appears stated age, hospital scrubs/clothing Build: average Demeanor: withdrawn Eye Contact: fair Activity: less anxious Behavior: cooperative, withdrawn Speech: clear, spontaneous, reg/rate,rhythm,volume Mood: depressed, less anxious Mood "alright" Affect: constricted, flat, congruent, less anxious Thought Process: logical/linear, depressed, intact Thought Content (Delusions): none reported, denies SI, HI, AVH (currently) Thought Content (Other): none reported Thought Content (Aggressive): none reported Perception (Hallucinations): none reported Perception (Other): none reported Cognition (Impairment of): none reported Cognition(Intelligence Est.): average Oriented: Awake, Alert, Oriented times three Judgment: Fair Insight: fair DIAGNOSES: Depression Unspecified R/O adjustment d/o with depressed mood Polysubstance use disorder (stimulants, amphetamine) in short remission Cluster B personality traits ASSESSMENT: Patient is having a good response to medications and he denies side effects. he still feels very vulnerable due to recnet events of his filing for a divorce. Now he says that his has a boyfriend, so, maybe he is going to call a girl that he met while he was in the program. h says that he is not having suicidal thoughts but he is afraid of going to the same place he was discharged before, since that place, that is drug infested, as he says, is a trigger for him, since he is trying to stay away from drugs and he doesn't want to use. He is accepting some responsibility for his failed marriage. No medication adjust ment at this time. HIs problem is housing and I think he should go to another place because living in there could cause a relapse. MANAGEMENT PLAN: Continue with current treatment plan TIME SPENT: 30 minutes. Vital Signs Vital Signs Date Time Temp Pulse Resp B/P (MAP) Pulse Ox O2 Delivery O2 Flow Rate FiO2 07/16/18 06:50 98.2 71 16 117/70 (86) 07/13/18 15:35 98 07/13/18 15:14 Room Air Current Medications Current Medications Al Hydrox/Mg Hydrox/Simethicone (Mylanta) 30 ml Q4HP PRN PO HEARTBURN/INDIGESTION; Start 07/13/18 at 15:00 Citalopram Hydrobromide (CeleXA) 20 mg DAILY PO Last administered on 07/15/18at 08:21; Start 07/14/18 at 09:00; Stop 07/15/18 at 09:08; Status DC Citalopram Hydrobromide (CeleXA) 20 mg QHS PO ; Start 07/16/18 at 21:00 Home Med (Med Rec Complete!) ASDIRECTED XX ; Start 07/13/18 at 14:15; Stop 07/13/18 at 14:15; Status DC Ibuprofen (Advil) 400 mg Q6HP PRN PO PAIN Last administered on 07/13/18at 16:31; Start 07/13/18 at 15:00 Magnesium Hydroxide (Milk Of Magnesia) 30 ml DAILYPRN PRN PO CONSTIPATION; Start 07/13/18 at 15:00 Nicotine (Nicoderm Cq 21mg) 1 patch DAILY TD ; Start 07/13/18 at 09:00 Olanzapine (ZyPREXA) 10 mg QPM PO Last administered on 07/15/18at 20:28; Start 07/13/18 at 21:00 Quetiapine Fumarate (SEROquel) 50 mg TIDP PRN PO ANXIETY/AGITATION Last administered on 07/15/18at 16:56; Start 07/13/18 at 17:00 Quetiapine Fumarate (SEROquel) 300 mg QHS PO Last administered on 07/15/18at 20:28; Start 07/13/18 at 21:00 Tamsulosin HCl (Flomax) 0.4 mg DAILY PO Last administered on 07/16/18at 09:36; Start 07/14/18 at 09:00 Trazodone HCl (Desyrel) 50 mg QHSP PRN PO INSOMNIA; Start 07/13/18 at 15:00; Status Cancel Trazodone HCl (Desyrel) 100 mg QHSP PRN PO INSOMNIA Last administered on 07/15/18at 20:28; Start 07/13/18 at 17:00 Allergies Coded Allergies: No Known Allergies (Unverified , 01/09/18) TING SWEENEY MD July 16, 2018 15:28
[2018-07-16 18:00] VITALS: BP 129/78
[2018-07-16] MEDS: QUEtiapine FUMARATE 100 MG TAB PO SCH (20:18)
[2018-07-16] MEDS: CitaloPRAM (CeleXA) 20 MG TAB PO SCH (20:18)
[2018-07-16] MEDS: OLANZapine 10 MG TAB PO SCH (20:18)
[2018-07-16] MEDS: traZODone 100 MG TAB PO PRN (20:18)
[2018-07-17 06:39] VITALS: BP 103/59
[2018-07-17] MEDS: NICOTINE 21MG/24HR 1 EA TRANSDERMAL TD SCH (09:00)
[2018-07-17] MEDS: QUEtiapine FUMARATE 50 MG TAB PO PRN (09:13)
[2018-07-17] MEDS: TAMSULOSIN 0.4 MG CAP PO SCH (09:13)
[2018-07-17 18:00] VITALS: BP 107/65
--- NOTE | 2018-07-17 18:55 | MHIPNPDOC ---
[facility] Progress Note Progress Note DATE OF SERVICE: 07/17/18 HISTORY: Patient is a 48 -year-old , male, with a history of depression, amphetamine use d/o, cluster B traits, multiple admits COUNT INCLUDES [facility] for SI who presented to ED stating he cut his left arm with a razor due to just "wanting it all to be over with" after he came home for completing 21day rehab and found divorce papers taped to his door. Pt also endorsed psychosocial stressors of his daughter delivering his still born daughter 2wks ago and having a studio apt with nothing in it including bed sheets, towels, etc in the ED. Pt endorsed cognitive distortions of feeling like he has nothing to live for and that even though he's doing everything right in his life (currently sober) it still isn't going well per ED. He endorsed SI in the ED stating he had nothing to live for anymore. VITAL SIGNS: See below. NEW TEST RESULTS: See below. CURRENT MEDICATIONS: See below. MENTAL STATUS EXAMINATION: General Appearance: well groomed, appears stated age, hospital scrubs/clothing Build: average Demeanor: withdrawn Eye Contact: fair Activity: less anxious Behavior: cooperative, withdrawn Speech: clear, spontaneous, reg/rate,rhythm,volume Mood: depressed, less anxious Mood "the same " Affect: constricted, flat, congruent, less anxious Thought Process: logical/linear, depressed, intact Thought Content (Delusions): none reported, denies SI, HI, AVH (currently) Thought Content (Other): none reported Thought Content (Aggressive): none reported Perception (Hallucinations): none reported Perception (Other): none reported Cognition (Impairment of): none reported Cognition(Intelligence Est.): average Oriented: Awake, Alert, Oriented times three Judgment: Fair Insight: fair DIAGNOSES: Depression Unspecified R/O adjustment d/o with depressed mood Polysubstance use disorder (stimulants, amphetamine) in short remission Cluster B personality traits ASSESSMENT: The patient's mental status exam has not changed that much since yesterday.The patient continues to endorse anxiety related to his housing problems, he says when he thinks about going back to the same hotel he feels as if he becomes anxious and stressed out and this problem was what triggered his suicidal thoughts this time. Will continue to work with him to solve those problems. MANAGEMENT PLAN: Continue with current treatment plan TIME SPENT: 30 minutes. Vital Signs Vital Signs Date Time Temp Pulse Resp B/P (MAP) Pulse Ox O2 Delivery O2 Flow Rate FiO2 07/17/18 18:00 98.7 66 16 107/65 (79) 07/13/18 15:35 98 07/13/18 15:14 Room Air Current Medications Current Medications Al Hydrox/Mg Hydrox/Simethicone (Mylanta) 30 ml Q4HP PRN PO HEARTBURN/INDIGESTION; Start 07/13/18 at 15:00 Citalopram Hydrobromide (CeleXA) 20 mg DAILY PO Last administered on 07/15/18at 08:21; Start 07/14/18 at 09:00; Stop 07/15/18 at 09:08; Status DC Citalopram Hydrobromide (CeleXA) 20 mg QHS PO Last administered on 07/16/18at 20:18; Start 07/16/18 at 21:00 Home Med (Med Rec Complete!) ASDIRECTED XX ; Start 07/13/18 at 14:15; Stop 07/13/18 at 14:15; Status DC Ibuprofen (Advil) 400 mg Q6HP PRN PO PAIN Last administered on 07/13/18at 16:31; Start 07/13/18 at 15:00 Magnesium Hydroxide (Milk Of Magnesia) 30 ml DAILYPRN PRN PO CONSTIPATION; Start 07/13/18 at 15:00 Mirtazapine (Remeron) 45 mg QHS PO ; Start 07/17/18 at 21:00 Nicotine (Nicoderm Cq 21mg) 1 patch DAILY TD ; Start 07/13/18 at 09:00 Olanzapine (ZyPREXA) 10 mg QPM PO Last administered on 07/16/18 20:18; Start 07/13/18 at 21:00 Quetiapine Fumarate (SEROquel) 50 mg TIDP PRN PO ANXIETY/AGITATION Last administered on 07/17/18 09:13; Start 07/13/18 at 17:00 Quetiapine Fumarate (SEROquel) 300 mg QHS PO Last administered on 07/16/18 20:18; Start 07/13/18 at 21:00 Tamsulosin HCl (Flomax) 0.4 mg DAILY PO Last administered on 5/14/19at 09:13; Start 07/14/18 at 09:00 Trazodone HCl (Desyrel) 50 mg QHSP PRN PO INSOMNIA; Start 07/13/18 at 15:00; Status Cancel Trazodone HCl (Desyrel) 100 mg QHSP PRN PO INSOMNIA Last administered on 07/16/18at 20:18; Start 07/13/18 at 17:00; Stop 07/17/18 at 16:09; Status DC Allergies Coded Allergies: No Known Allergies (Unverified , 01/09/18) TING SWEENEY MD July 17, 2018 18:55
[2018-07-17] MEDS: CitaloPRAM (CeleXA) 20 MG TAB PO SCH (20:00)
[2018-07-17] MEDS: OLANZapine 10 MG TAB PO SCH (20:00)
[2018-07-17] MEDS: QUEtiapine FUMARATE 100 MG TAB PO SCH (20:01)
[2018-07-17] MEDS ORDERED: MIRTAZAPINE 15 MG TAB PO SCH (21:00)
[2018-07-18 06:59] VITALS: BP 111/69
[2018-07-18] MEDS: TAMSULOSIN 0.4 MG CAP PO SCH (08:13)
[2018-07-18] MEDS: NICOTINE 21MG/24HR 1 EA TRANSDERMAL TD SCH (08:13)
[2018-07-18] MEDS ORDERED: QUET1TAB10 PO (10:49)
[2018-07-18] MEDS ORDERED: ZYPR10TA PO (10:49)
[2018-07-18] MEDS ORDERED: QUET5TAB PO (10:49)
[2018-07-18] MEDS ORDERED: NICO21PAT TD (10:49)
[2018-07-18] MEDS ORDERED: CELE20TA PO (11:12)
--- NOTE | 2018-07-21 21:27 | MHDSPDOC ---
[facility] Discharge Summary Discharge Summary DATE OF ADMISSION: July 13, 2018 at 14:57 DATE OF DISCHARGE: July 18, 2018 at 12:45 DISCHARGE DIAGNOSES: Depression Unspecified R/O adjustment d/o with depressed mood Polysubstance use disorder (stimulants, amphetamine) in short remission Cluster B personality traits REASON FOR ADMISSION: Patient is a 48 -year-old , male, with a history of depression, amphetamine use d/o, cluster B traits, multiple admits [facility] for SI who presented to ED stating he cut his left arm with a razor due to just "wanting it all to be over with" after he came home for completing 21day rehab and found divorce papers taped to his door. Pt also endorsed psychosocial stressors of his daughter delivering his still born daughter 2wks ago and having a studio apt with nothing in it including bed sheets, towels, etc in the ED. Pt endorsed cognitive distortions of feeling like he has nothing to live for and that even though he's doing everything right in his life (currently sober) it still isn't going well per ED. He endorsed SI in the ED stating he had nothing to live for anymore. CONSULTANTS INVOLVED: None TREATMENT AND PROGRESS ON THE UNIT : Patient was pleasant and cooperative this time, he said he had completed 21 day rehab but he couldn't do the full month because his Insurance wouldn't cover for all his stay. As soon as he was discharge, he found out that his had filed for the divorce and found the papers on the yudy of the hotel room he had been staying. This hostel room was another stressor, he said the place was infested with bed bugs and there were no sheets on the bed, no curtains, no nothing. He felt that he had nothing to live for but this time his urine toxicology was clean, he seemed to be serious about quitting drugs but then, the patient started complaining of not being able to fall asleep, even when he was taking medications that would have cause him to sleep, however he was spending long hours in bed, without walking in the hallways and this didn't help him to fall asleep at night. He wanted to leave because he felt better, he had been taking medications, he felt safe at the Unit. He received help regarding housing, but he had to wait until August 04 to transfer to another place ([facility]). He mentioned that he was thinking about going back to work, about keeping busy to avoid thinking about his family and drugs. The patient was discharged because he was not longer suicidal, not homicidal and was not psychotic. He was goal orientated, wanted to go back to work and stay away from drugs. HOSPITAL COURSE: As above DISCHARGE ASSESSMENT: Patient was not homicidal, not suicidal, not psychotic. Had a good response to medications and was encouraged to follow with his p roviders, to comply with medications because he has a h/o non compliance, and to stay away from drugs. MENTAL STATUS EXAMINATION ON DISCHARGE: General Appearance: well groomed, appears stated age, hospital scrubs/clothing Build: average Demeanor: appropriate, cooperative Eye Contact: fair Activity: calm Behavior: cooperative, withdrawn Speech: clear, spontaneous, reg/rate,rhythm,volume Mood: euthymic Mood "feel ready to go, I'm OK" Affect: full, appropriate, congruent with mood Thought Process: logical/linear, depressed, intact Thought Content (Delusions): none reported, denies SI, HI, AVH (currently) Thought Content (Other): none reported Thought Content (Aggressive): none reported Perception (Hallucinations): none reported Perception (Other): none reported Cognition (Impairment of): none reported Cognition(Intelligence Est.): average Oriented: Awake, Alert, Oriented times three Judgment: Fair Insight: fair MEDICATIONS ON DISCHARGE: italopram Hydrobromide (Celexa) 20 Mg Tablet, 20 MG PO QHS for depression, #7 Nicotine (Nicotine Patch) 21 Mg Patch.td24, 1 PATCH TD DAILY for nicotine cravings, #7 Quetiapine Fumarate (Quetiapine Fumarate) 50 Mg Tablet, 50 MG PO TID for mood, #28 Quetiapine Fumarate (Quetiapine Fumarate) 300 Mg Tablet, 300 MG PO QHS for insomnia, #7 Tamsulosin HCl (Flomax) 0.4 Mg Capsule, 0.4 MG PO DAILY, (Reporte PLAN/FOLLOWUP ARRANGEMENTS: ollow Up Care Education Label * Mental Health Appt 1 * [facility] * Established With This Provider Yes * Therapist ZENAIDA * Date July 20, 2018 * Time 13:00 * Address of Clinic or Practice [address] [place] [address] * Follow Up Care Education Label * Mental Health Appt 2 * [facility] * Established With This Provider Yes * Therapist JOSUE * Date Aug 16, 2018 * Time 09:00 Follow Up Care Education Label * Medical * Medical Follow Up [facility] * Established With This Provider Yes * Therapist DR. RIBERA * Date July 31, 2018 * Time 15:00 * Address of Clinic or Practice [address] [place] [address] * The amount of time spent in the coordination of care for this patient was approximately 30 minutes. Vital Signs/I&Os Vital Signs Date Time Temp Pulse Resp B/P (MAP) Pulse Ox O2 Delivery O2 Flow Rate FiO2 07/18/18 06:59 97.9 69 18 111/69 (83) Medications Scheduled Citalopram Hydrobromide (Celexa) 20 Mg Tablet, 20 MG PO QHS for depression, #7 Nicotine (Nicotine Patch) 21 Mg Patch.td24, 1 PATCH TD DAILY for nicotine cravings, #7 Quetiapine Fumarate (Quetiapine Fumarate) 50 Mg Tablet, 50 MG PO TID for mood, #28 Quetiapine Fumarate (Quetiapine Fumarate) 300 Mg Tablet, 300 MG PO QHS for insomnia, #7 Tamsulosin HCl (Flomax) 0.4 Mg Capsule, 0.4 MG PO DAILY, (Reported) Miscellaneous Medications [Patient Comments] , (Reported) THERE ARE NO ACTIVE PRESCRIPTIONS FOR THE LISTED MEDICATIONS, LAST FILL AT [facility]IV[facility] PHARM[facility] WAS 05/04/2018. ALTERNATE PHARMACY HAS NOT FILLED ANY MEDICATIONS FOR PAST 18 MONTHS Allergies Coded Allergies: No Known Allergies (Unverified , 01/09/18) TING SWEENEY MD July 21, 2018 21:21
== END 2018-07-18 12:45 | disposition home or self-care (01) | DRG 754 ==
LOC: M ED 10:28 → EDBD 10:28 → M ED INP 14:57 → M PSY 15:28
PROVIDERS: ADMIT Psychiatry & Neurology Psychiatry; ATTEND Psychiatry & Neurology Psychiatry
DX: F32.9 Major depressive disorder, single episode, unspecified (principal); R45.851 Suicidal ideations; F15.90 Other stimulant use, unspecified, uncomplicated; F60.89 Other specific personality disorders; F43.21 Adjustment disorder with depressed mood; Z63.5 Disruption of family by separation and divorce; Z79.899 Other long term (current) drug therapy; B18.2 Chronic viral hepatitis C

== ENCOUNTER 2018-08-29 13:07 | Inpatient (IN) | payer MEDICAID, OTHER ==
[~2018-08-29] VITALS: Ht 165.1 cm; Wt 60.0 kg
[~2018-08-29 13:07] MED LIST changes: +CELE20TA PO; +PATIENT COMMENTS; +QUET1TAB10 PO; -TRAZ-160 PO; +TRAZ-163 PO; +TRAZ-252 PO; +TRAZ1TAB10 PO; +TRAZ1TAB11 PO; -TRAZ25TA PO; -TRAZO50TA PO; +ZOLO100T PO
[2018-08-29 13:52] LABS: HEMATOCRIT 36.9 % (42.0-52.0); HEMOGLOBIN 12.2 g/dl (13.5-17.5); MEAN CORPUSCULAR HEMOGLOBIN 26.9 pg (27.0-33.0); MEAN CORPUSCULAR HGB CONC 33.1 g/dl (32.0-36.5); MEAN CORPUSCULAR VOLUME 81.5 fl (80.0-96.0); PLATELET COUNT, AUTOMATED 370 10^3/uL (150-450); RED BLOOD COUNT 4.53 10^6/uL (4.30-6.10); WHITE BLOOD COUNT 4.9 10^3/uL (4.0-10.0)
[2018-08-29 14:21] LABS: AMPHETAMINES LEVEL URINE POSITIVE (NEGATIVE); BARBITURATES URINE NEGATIVE (NEGATIVE); BENZODIAZEPINES URINE NEGATIVE (NEGATIVE); CANNABINOIDS URINE NEGATIVE (NEGATIVE); COCAINE METABOLITE URINE NEGATIVE (NEGATIVE); METHADONE URINE NEGATIVE (NEGATIVE); OPIATES URINE NEGATIVE (NEGATIVE); PHENCYCLIDINE URINE NEGATIVE (NEGATIVE)
[2018-08-29 14:30] LABS: ACETAMINOPHEN LEVEL < 2.0 UG/ML (10.0-30.0); ALBUMIN 3.5 GM/DL (3.2-5.2); ALT/SGPT 116 U/L (12-78); BILIRUBIN,DIRECT 0.2 MG/DL (0.0-0.2); BILIRUBIN,TOTAL 0.4 MG/DL (0.2-1.0); BLOOD UREA NITROGEN 11 MG/DL (7-18); CALCIUM LEVEL 8.7 MG/DL (8.5-10.1); CARBON DIOXIDE LEVEL 28 MEQ/L (21-32); CHLORIDE LEVEL 106 MEQ/L (98-107); CREATININE FOR GFR 0.89 MG/DL (0.70-1.30); ETHYL ALCOHOL (ETHANOL) 0.003 % (0.000-0.010); GLOMERULAR FILTRATION RATE > 60.0 (>60); GLUCOSE, FASTING 114 MG/DL (70-100); POTASSIUM SERUM 3.6 MEQ/L (3.5-5.1); SALICYLATE LEVEL 2.6 MG/DL (5.0-30.0); SODIUM LEVEL 139 MEQ/L (136-145); TOTAL PROTEIN 6.9 GM/DL (6.4-8.2)
[2018-08-29] MEDS ORDERED: LORazepam 1 MG TAB PO ONE (16:15)
[2018-08-29] MEDS ORDERED: NICO21DI38 TD (17:16)
[2018-08-29] MEDS ORDERED: TRAZ-189 PO (17:16)
[2018-08-29] MEDS ORDERED: CITA20TA7 PO (17:16)
[2018-08-29] MEDS ORDERED: OMEP-221 PO (17:16)
[2018-08-29] MEDS ORDERED: FOLI1TAB11 PO (17:16)
[2018-08-29] MEDS ORDERED: HYDR-3363 PO (17:16)
[2018-08-29] MEDS ORDERED: QUET5TAB PO (17:16)
[2018-08-29] MEDS ORDERED: QUET1TAB10 PO (17:16)
[2018-08-29] MEDS ORDERED: MOM 30ML SUSPENSION UDC PO PRN (19:00)
[2018-08-29] MEDS ORDERED: OLANZapine ORAL DISINTEGRATING TAB 5MG PO PRN (19:00)
[2018-08-29] MEDS ORDERED: ACETAMINOPHEN TAB 650MG DOSE (2X325MG) PO PRN (19:00)
[2018-08-29 19:53] VITALS: BP 110/79
[2018-08-29] MEDS: QUEtiapine FUMARATE 200 MG TAB PO SCH (21:22)
[2018-08-30 06:55] VITALS: BP 99/61
[2018-08-30] MEDS: QUEtiapine FUMARATE 200 MG TAB PO SCH ×3 (08:08→21:50)
[2018-08-30] MEDS: NICOTINE 21MG/24HR 1 EA TRANSDERMAL TD SCH (08:39)
--- NOTE | 2018-08-30 10:21 | HPEPDOC ---
General Date of Admission Aug 29, 2018 at 19:11 Date of Service: Aug 30, 2018 Attending Physician: COLTON SHER MD Chief Complaint The patient is a 48-year-old male admitted with a reason for visit of Unspecified Mood Disorder. History of Present Illness Sulema Loo is a 48-year-old male, past medical history significant for polysubstance abuse with methamphetamine, BPH, nicotine dependence, admitted on account of suicidal ideation. On assessment he complains of right AC joint pain and swelling since he injected meth on Monday. He denies chills, fever, chest pain, SOB Home Medications Scheduled Citalopram Hydrobromide (Citalopram HBr) 20 Mg Tablet, 20 MG PO QHS, (Reported) Folic Acid (Folic Acid) 1 Mg Tablet, 1 MG PO DAILY, (Reported) Hydroxyzine HCl (Hydroxyzine HCl) 25 Mg Tablet, 50 MG PO TID, (Reported) USES PRN Nicotine (Nicotine Patch) 21 Mg/24 Hr Patch.td24, 21 MG TD DAILY, (Reported) NO PATCH ON AT THIS TIME Omeprazole (Omeprazole) 40 Mg Capsule.dr, 40 MG PO BID, (Reported) Quetiapine Fumarate (Quetiapine Fumarate) 50 Mg Tablet, 50 MG PO TID, (Reported) USES PRN Tamsulosin HCl (Flomax) 0.4 Mg Capsule, 0.4 MG PO DAILY, (Reported) Trazodone HCl (Trazodone HCl) 100 Mg Tablet, 100 MG PO QHS, (Reported) Scheduled PRN Quetiapine Fumarate (Quetiapine Fumarate) 300 Mg Tablet, 300 MG PO QHS PRN for INSOMNIA, (Reported) Allergies Coded Allergies: No Known Allergies (Unverified , 08/29/18) Past Medical History Medical History Depression Anxiety BPH PSA-Methamphetamine Surgical History None Family History Father: [place] Mother:COPD Social History * Smoker: less than 1 pack/day Alcohol: Denies Drugs: other (meth) A-FIB/CHADSVASC A-FIB History Current/History of A-Fib/PAF?: No Current PO Anticoag Therapy: No Review of Systems Other systems A 10 point pertinent review of systems was completed, negative except as stated in the history of presenting illness. Physical Examination Other physical findings GENERAL: NAD SKIN : Warm, dry intact HEENT: Atraumatic, normocephalic, PERRL, moist mucous membrane CARDIOVASCULAR: Regular rate and rhythm, S1S2, no JVD, no edema, distal pulses + and palpable . Right AC joint tenderness RESP: CTAB, no accessory muscle use noted ABDOMEN: BS+ non distended non tender MS: no joint deformities NEURO: Alert and oriented x 3, CN2-12 grossly intact PSYCH: no anxiety or agitation, appropriate mood and affect. Vital Signs Vital Signs Date Time Temp Pulse Resp B/P (MAP) Pulse Ox O2 Delivery O2 Flow Rate FiO2 08/30/18 06:55 99.3 72 16 99/61 (74) 08/29/18 19:53 100 08/29/18 19:53 Room Air Laboratory Data Labs 24H Laboratory Tests 2 08/29/18 13:39: Nucleated Red Blood Cells % (auto) 0.0, Anion Gap 5L, Glomerular Filtration Rate > 60.0, Calcium Level 8.7, Aspartate Amino Transf (AST/SGOT) 54H, Alanine Aminotransferase (ALT/SGPT) 116H, Alkaline Phosphatase 74, Total Bilirubin 0.4, Direct Bilirubin 0.2, Total Protein 6.9, Albumin 3.5, Albumin/Globulin Ratio 1.03, Thyroid Stimulating Hormone (TSH) 1.090, Salicylates Level 2.6L, Urine Amphetamines Screen POSITIVEH, Urine Benzodiazepines Screen NEGATIVE, Urine Opiates Screen NEGATIVE, Urine Methadone Screen NEGATIVE, Acetaminophen Level < 2.0L, Urine Barbiturates Screen NEGATIVE, Urine Phencyclidine Screen NEGATIVE, Urine Cocaine Metabolite Screen NEGATIVE, Urine Cannabinoids Screen NEGATIVE, Ethyl Alcohol Level 0.003 CBC/BMP Laboratory Tests 08/29/18 13:39 Red Blood Count 4.53, Mean Corpuscular Volume 81.5, Mean Corpuscular Hemoglobin 26.9 L, Mean Corpuscular Hemoglobin Concent 33.1, Red Cell Distribution Width 16.3 H Assessment/Plan Right AC phlebitis BPH Poly Substance Abuse with Meth Nicotine Dependence Suicidal Ideation ASSESSMENT/PLAN U/S right upper extremity to evaluate for DVT Continue Flomax for BPH Follow U/S findings Other management by primary team Plan / VTE VTE Prophylaxis Ordered?: No VTE Exclusion Mechanical Proph: Low Risk for VTE MAYE KEANEP Aug 30, 2018 10:21
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
[2018-08-30] MEDS ORDERED: traZODone 100 MG TAB PO PRN (11:15)
[2018-08-30] MEDS ORDERED: hydrOXYzine 50 MG TAB PO PRN (11:15)
[2018-08-30] MEDS: TAMSULOSIN 0.4 MG CAP PO SCH (12:38)
--- NOTE | 2018-08-30 14:10 | REP ---
Clinical: Recent antecubital injection with pain. Technique: Real time villa scale and color Doppler evaluation of the right upper extremity using linear high frequency transducer. Findings: Directed ultrasound examination at the site of recent injection and pain along the medial aspect of the antecubital fossa demonstrates a 1.4 x 1.0 x 0.5 cm complex fluid collection posterior to the right median cubital vein which may represent a very small phlegmon/forming abscess. There is also evidence for a small focus of nonocclusive thrombus along the medial aspect of the median cubital vein. Remainder of the examination is normal and there is no evidence for further deep venous thrombosis involving the jugular, subclavian, axillary, brachial, or basilic veins. The right cephalic vein is not visualized. Impression: 1. Changes at the site of recent injection including possible small phlegmon/forming abscess and minimal nonocclusive thrombus in the median cubital vein. Electronically Signed by Slade Sun MD 08/30/2018 12:45 P
[2018-08-30 18:00] VITALS: BP 111/63
[2018-08-30] MEDS: CitaloPRAM (CeleXA) 20 MG TAB PO SCH (21:50)
[2018-08-31 07:08] VITALS: BP 129/77
--- NOTE | 2018-08-31 08:03 | IPNPDOC ---
Text Note Date of Service The patient was seen on 08/31/18. NOTE Sulema Loo is a 48-year-old male, past medical history significant for polysubstance abuse with methamphetamine, BPH, nicotine dependence, admitted on account of suicidal ideation. SUBJECTIVE: This am complains of persisting right AC pain. Ultrasound findings discussed with him. He is started on antibiotic therapy with Bactrim. He denies chills, chest pain, SOB OBJECTIVE ultrasound right AC joint : CHANGES AT SITE OF RECENT INJECTION INCLUDING SMALL PHLEGMON FORMING ABSCESS AND MINIMAL NONOCCLUSIVE THROMBUS IN THE MEDIAN CUBITAL VEIN. GENERAL: NAD SKIN : Warm, dry intact HEENT: Atraumatic, normocephalic, PERRL, moist mucous membrane CARDIOVASCULAR: Regular rate and rhythm, S1S2, no JVD, no edema, distal pulses + and palpable . Right AC joint indurated area with tenderness RESP: CTAB, no accessory muscle use noted ABDOMEN: BS+ non distended non tender MS: no joint deformities NEURO: Alert and oriented x 3, CN2-12 grossly intact PSYCH: no anxiety or agitation, appropriate mood and affect. Assessment and plan IV drug use -With cellulitis and possible abscess to right before meals joint site of injection -Started on antibiotic therapy with Bactrim -Warm compress as needed -Active follow-up for resolution of process or consulting surgery for I&D if unimproved -Follow hepatitis and HIV panel. VS,Fishbone, I+O VS, Fishbone, I+O Vital Signs Date Time Temp Pulse Resp B/P (MAP) Pulse Ox O2 Delivery O2 Flow Rate FiO2 08/31/18 07:08 99.1 73 14 129/77 (94) 08/29/18 19:53 100 08/29/18 19:53 [address] [facility] Aug 31, 2018 08:03
[2018-08-31] MEDS: TAMSULOSIN 0.4 MG CAP PO SCH (09:13)
[2018-08-31] MEDS: NICOTINE 21MG/24HR 1 EA TRANSDERMAL TD SCH (09:13)
[2018-08-31] MEDS: QUEtiapine FUMARATE 200 MG TAB PO SCH ×3 (09:13→21:00)
[2018-08-31] MEDS: BACTRIM 160MG/800MG DS TAB PO SCH ×2 (09:13→21:00)
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
[2018-08-31 11:11] LABS: HEPATITIS A ANTIBODY IGM NEGATIVE (NEGATIVE); HEPATITIS B CORE ANTIBODY IGM NEGATIVE (NEGATIVE); HEPATITIS B SURFACE ANTIGEN NEGATIVE (NEGATIVE); HEPATITIS C VIRUS ABY INDEX > 11.0 INDEX (<0.8)
[2018-08-31 12:35] VITALS: BP 112/70
[2018-08-31 18:22] VITALS: BP 115/68
[2018-08-31] MEDS: CitaloPRAM (CeleXA) 20 MG TAB PO SCH (21:00)
[2018-09-01 06:48] VITALS: BP 115/69
[2018-09-01] MEDS: TAMSULOSIN 0.4 MG CAP PO SCH (08:41)
[2018-09-01] MEDS: NICOTINE 21MG/24HR 1 EA TRANSDERMAL TD SCH (08:41)
[2018-09-01] MEDS: BACTRIM 160MG/800MG DS TAB PO SCH ×2 (08:41→21:00)
[2018-09-01] MEDS: QUEtiapine FUMARATE 200 MG TAB PO SCH ×3 (08:41→21:00)
--- NOTE | 2018-09-01 08:55 | MHIPNPDOC ---
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 Per ED, pt very upset regarding his overdose as he had been doing well with his sobriety and his and he were discussing getting back together in the future but feels that may be in jeopardy now. Pt had been compliant with his Creto treatment with last visit to group therapy last week causing him to be concerned about what would happen with his future substance abuse treatment. VITAL SIGNS: See below. NEW TEST RESULTS: See below. CURRENT MEDICATIONS: See below. MENTAL STATUS EXAMINATION: General Appearance: well groomed, appears stated age, hospital scrubs/clothing Build: average Demeanor: average for pt Eye Contact: good Activity: average Behavior: cooperative Speech: clear, low in volume Mood: less depressed Mood ok Affect: less depressed, congruent Thought Process: logical/linear,intact Thought Content (Delusions): none reported, denies SI, HI, AVH Thought Content (Other): none reported, appropriate Thought Content (Aggressive): none reported Perception (Hallucinations): none reported Perception (Other): none reported Cognition (Impairment of): none reported Cognition(Intelligence Est.): average Oriented: Awake, Alert, Oriented times three Insight: fair Judgment: Fair Psychosis: Denies DIAGNOSES: Depression Unspecified R/O substance induced mood d/o -amphetamine amphetamine use d/o Cluster B personality traits ASSESSMENT:Pt seen in his room and states he's ok today. Pt is in bed laying but not sleeping. Doesn't want to talk further again as is sleeping off his recent amphetamine use he states. This is very common each time the pt is here. States he's tolerating his meds and their beneficial. Denies SI/HI, hallucinations, delusions. Feels safe here. MANAGEMENT PLAN: continue plan Medications: CeleXA 20 mg QHS Atarax 50 mg Q4HP PRN PO ANXIETY/AGITATION ZyPREXA ZYDIS 5 mg Q4HP PRN PO AGITATION SEROquel 200 mg TID trazodone 100mg qhs prn insomnia Bactrim Ds 160mg/800mg 1 tab BID TIME SPENT: 30 minutes. Vital Signs Vital Signs Date Time Temp Pulse Resp B/P (MAP) Pulse Ox O2 Delivery O2 Flow Rate FiO2 09/01/18 06:48 99.7 66 16 115/69 (84) 08/29/18 19:53 100 08/29/18 19:53 Room Air Laboratory Data 24H Labs Laboratory Tests 2 08/31/18 09:44: Current Medications Current Medications Acetaminophen (Tylenol Tab) 650 mg Q6HP PRN PO HEADACHE or DISCOMFORT; Start 08/29/18 at 19:00 Al Hydrox/Mg Hydrox/Simethicone (Mylanta) 30 ml Q4HP PRN PO HEARTBURN/INDIGESTION; Start 08/29/18 at 19:00 Citalopram Hydrobromide (CeleXA) 20 mg QHS PO Last administered on 08/30/18at 21:50; Start 08/30/18 at 21:00 Home Med (Med Rec Complete!) ASDIRECTED XX ; Start 08/29/18 at 17:30; Stop 08/29/18 at 17:30; Status DC Hydroxyzine HCl (Atarax) 50 mg Q4HP PRN PO ANXIETY/AGITATION; Start 08/30/18 at 11:15 Magnesium Hydroxide (Milk Of Magnesia) 30 ml DAILYPRN PRN PO CONSTIPATION; Start 08/29/18 at 19:00 Nicotine (Nicoderm Cq 21mg) 1 patch DAILY TD Last administered on 08/31/18at 09:13; Start 08/30/18 at 09:00 Olanzapine (ZyPREXA ZYDIS) 5 mg Q4HP PRN PO AGITATION Last administered on 08/30/18at 08:08; Start 08/29/18 at 19:00 Quetiapine Fumarate (SEROquel) 200 mg TID PO Last administered on 09/01/18at 08:41; Start 08/29/18 at 21:00 Tamsulosin HCl (Flomax) 0.4 mg DAILY PO Last administered on 09/01/18at 08:41; Start 08/30/18 at 09:00 Trazodone HCl (Desyrel) 100 mg QHSP PRN PO INSOMNIA; Start 08/30/18 at 11:15 Trimethoprim/ Sulfamethoxazole (Bactrim Ds, Septra Ds 160mg/ 800mg) 1 tab BID PO Last administered on 09/01/18at 08:41; Start 08/31/18 at 09:00 Allergies Coded Allergies: No Known Allergies (Unverified , 08/29/18) ONEIDA RAMAN DO Sep 01, 2018 8:55 am
--- NOTE | 2018-09-01 15:14 | IPNPDOC ---
Text Note Date of Service The patient was seen on 09/01/18. NOTE Pt was seen and examined at bedside. Denies any fever, chills. Denies any dyspnea, tachypnea. Denies CP, palpitations. Pt reports dizziness when ambulating. GENERAL: AAOx3 comfortable in bed NAD SKIN : intact no lesion HEENT: Atraumatic, normocephalic, PERRLA, EOMI, moist mucous membrane CARDIOVASCULAR: S1 S2 RRR no JVD, no edema, RESP: clear bilat no wheezing no rales ABDOMEN: soft NT ND MS: no joint deformities Rt antecubital area 3x3 cm induration no fluid collection no erythema no fluid drainage NEURO: motor sensory intact PSYCH: affect and mood appropriate Vital Signs Date Time Temp Pulse Resp B/P (MAP) Pulse Ox O2 Delivery O2 Flow Rate FiO2 09/01/18 06:48 99.7 66 16 115/69 (84) 08/31/18 18:22 98.9 72 16 115/68 (84) Current Medications Medications (Trade) Dose Ordered Sig/Esther Route PRN Reason Start Time Stop Time Status Last Admin Dose Admin Citalopram Hydrobromide (CeleXA) 20 mg QHS PO 08/30/18 21:00 08/30/18 21:50 20 MG Nicotine (Nicoderm Cq 21mg) 1 patch DAILY TD 08/30/18 09:00 08/31/18 09:13 1 PATCH Olanzapine (ZyPREXA ZYDIS) 5 mg Q4HP PRN PO AGITATION 08/29/18 19:00 08/30/18 08:08 5 MG Quetiapine Fumarate (SEROquel) 200 mg TID PO 08/29/18 21:00 09/01/18 08:41 200 MG Tamsulosin HCl (Flomax) 0.4 mg DAILY PO 08/30/18 09:00 09/01/18 08:41 0.4 MG Trimethoprim/ Sulfamethoxazole (Bactrim Ds, Septra Ds 160mg/ 800mg) 1 tab BID PO 08/31/18 09:00 09/01/18 08:41 1 TAB A/P Rt cubital induration suspicious for abscess No evidence of fluid collection on exam No signs of cellulitis or drainage, no erythema Cont Bactrim for total 7 days Management of anxiety/Depression as per primary team Cont Flomax for BPH DVT Prophylaxis: Pt is ambulatory VS,Fishbone, I+O VS, Fishbone, I+O Vital Signs Date Time Temp Pulse Resp B/P (MAP) Pulse Ox O2 Delivery O2 Flow Rate FiO2 09/01/18 06:48 99.7 66 16 115/69 (84) 08/29/18 19:53 100 08/29/18 19:53 Room Air NICOLE WHITEHEAD MD Sep 01, 2018 15:14
[2018-09-01 18:00] VITALS: BP 104/58
[2018-09-01] MEDS: CitaloPRAM (CeleXA) 20 MG TAB PO SCH (21:00)
[2018-09-02 06:49] VITALS: BP 105/65
[2018-09-02] MEDS: TAMSULOSIN 0.4 MG CAP PO SCH (08:31)
[2018-09-02] MEDS: QUEtiapine FUMARATE 200 MG TAB PO SCH ×3 (08:31→22:02)
[2018-09-02] MEDS: NICOTINE 21MG/24HR 1 EA TRANSDERMAL TD SCH (08:31)
[2018-09-02] MEDS: BACTRIM 160MG/800MG DS TAB PO SCH ×2 (08:31→22:02)
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
[2018-09-02] MEDS: MAALOX 30 ML SUSP *UDC PO PRN ×2 (17:34→22:02)
[2018-09-02 18:00] VITALS: BP 101/60
[2018-09-02] MEDS: CitaloPRAM (CeleXA) 20 MG TAB PO SCH (22:02)
[2018-09-03 06:54] VITALS: BP 106/64
[2018-09-03] MEDS: NICOTINE 21MG/24HR 1 EA TRANSDERMAL TD SCH (09:00)
[2018-09-03] MEDS: TAMSULOSIN 0.4 MG CAP PO SCH (09:17)
[2018-09-03] MEDS: BACTRIM 160MG/800MG DS TAB PO SCH ×2 (09:17→21:43)
[2018-09-03] MEDS: QUEtiapine FUMARATE 200 MG TAB PO SCH ×3 (09:17→21:43)
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
[2018-09-03 18:22] VITALS: BP 104/62
[2018-09-03] MEDS: CitaloPRAM (CeleXA) 20 MG TAB PO SCH (21:43)
[2018-09-04 00:06] LABS: HIV-1 RNA PCR QUANT 1 LC162545 <20 copies/mL (.)
[2018-09-04 06:36] VITALS: BP 114/77
[2018-09-04] MEDS ORDERED: QUET1TAB9 PO (08:56)
[2018-09-04] MEDS ORDERED: TRAZ-189 PO (08:56)
[2018-09-04] MEDS ORDERED: SULF1TAB93 PO (08:56)
[2018-09-04] MEDS ORDERED: HYDR-3363 PO (08:56)
[2018-09-04] MEDS ORDERED: CITA20TA7 PO (08:56)
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
[2018-09-04] MEDS: NICOTINE 21MG/24HR 1 EA TRANSDERMAL TD SCH (09:00)
[2018-09-04] MEDS: QUEtiapine FUMARATE 200 MG TAB PO SCH (09:14)
[2018-09-04] MEDS: TAMSULOSIN 0.4 MG CAP PO SCH (09:14)
[2018-09-04] MEDS: BACTRIM 160MG/800MG DS TAB PO SCH (09:14)
== END 2018-09-04 11:15 | disposition home or self-care (01) | DRG 754 ==
LOC: M ED 13:07 → M ED INP 19:11 → M PSY 19:54
PROVIDERS: ADMIT Psychiatry & Neurology Psychiatry; ATTEND Psychiatry & Neurology Psychiatry
DX: F32.9 Major depressive disorder, single episode, unspecified (principal); F60.89 Other specific personality disorders; F19.94 Other psychoactive substance use, unspecified with psychoactive substance-induced mood disorder; F15.90 Other stimulant use, unspecified, uncomplicated; Z79.899 Other long term (current) drug therapy; N40.0 Benign prostatic hyperplasia without lower urinary tract symptoms; F41.9 Anxiety disorder, unspecified; F17.200 Nicotine dependence, unspecified, uncomplicated; R45.851 Suicidal ideations; L03.113 Cellulitis of right upper limb

== ENCOUNTER 2018-10-21 05:14 | Emergency (ER) | payer MEDICAID, OTHER ==
[~2018-10-21 05:14] MED LIST changes: +CITA20TA7 PO; +FOLI1TAB11 PO; +HYDR-3363 PO; +HYDR1TAB33 PO; -HYDRO50TAB PO; +NICO21DI38 TD; +OMEP-221 PO; +QUET200T2 PO; +TRAZ-189 PO
[2018-10-21] MEDS ORDERED: NS 1,000 ML IV ONE (06:00)
[2018-10-21 06:30] LABS: BASO % 0.2 % (0.0-1.0); EOS # 0.1 10^3/uL (0.0-0.50); EOS % 0.9 % (0.0-3.0); HEMATOCRIT 40.6 % (42.0-52.0); HEMOGLOBIN 13.7 g/dl (13.5-17.5); LYMPH # 1.4 10^3/uL (1.5-4.5); LYMPH % 15.9 % (24.0-44.0); MEAN CORPUSCULAR HEMOGLOBIN 27.8 pg (27.0-33.0); MEAN CORPUSCULAR HGB CONC 33.7 g/dl (32.0-36.5); MEAN CORPUSCULAR VOLUME 82.5 fl (80.0-96.0); MONO # 0.7 10^3/uL (0.0-0.8); MONO % 7.8 % (0.0-5.0); NEUTROPHILS # 6.4 10^3/uL (1.8-7.7); PLATELET COUNT, AUTOMATED 383 10^3/uL (150-450); RED BLOOD COUNT 4.92 10^6/uL (4.30-6.10); WHITE BLOOD COUNT 8.5 10^3/uL (4.0-10.0)
--- NOTE | 2018-10-21 06:38 | ECGEPIP ---
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
[2018-10-21] MEDS ORDERED: LORazepam 2 MG/ML VIAL (J2060) IV STA (07:04)
[2018-10-21 07:06] LABS: ACETAMINOPHEN LEVEL < 2.0 UG/ML (10.0-30.0); ALBUMIN 3.7 GM/DL (3.2-5.2); ALT/SGPT 102 U/L (12-78); BILIRUBIN,DIRECT 0.2 MG/DL (0.0-0.2); BLOOD UREA NITROGEN 10 MG/DL (7-18); CALCIUM LEVEL 9.1 MG/DL (8.5-10.1); CARBON DIOXIDE LEVEL 27 MEQ/L (21-32); CHLORIDE LEVEL 106 MEQ/L (98-107); CPK CREATINE PHOSPHOKINASE 247 U/L (39-308); CREATININE FOR GFR 0.96 MG/DL (0.70-1.30); ETHYL ALCOHOL (ETHANOL) < 0.003 % (0.000-0.010); GLOMERULAR FILTRATION RATE > 60.0 (>60); GLUCOSE, FASTING 109 MG/DL (70-100); POTASSIUM SERUM 3.7 MEQ/L (3.5-5.1); SALICYLATE LEVEL < 1.7 MG/DL (5.0-30.0); SODIUM LEVEL 141 MEQ/L (136-145); TOTAL PROTEIN 7.3 GM/DL (6.4-8.2)
[2018-10-21] MEDS ORDERED: ACETAMINOPHEN 650 MG SUPP PR ONE (07:15)
[2018-10-21 07:26] LABS: CK-MB VALUE MASS 1.6 NG/ML (<3.6); MB/CK RELATIVE INDEX 0.65 (< OR =4); TROPONIN I < 0.02 NG/ML (< 0.10)
[2018-10-21] MEDS ORDERED: ACETAMINOPHEN TAB 650MG DOSE (2X325MG) PO ONE (09:30)
[2018-10-21 10:05] LABS: AMPHETAMINES LEVEL URINE NEGATIVE (NEGATIVE); BARBITURATES URINE NEGATIVE (NEGATIVE); BENZODIAZEPINES URINE NEGATIVE (NEGATIVE); CANNABINOIDS URINE NEGATIVE (NEGATIVE); COCAINE METABOLITE URINE NEGATIVE (NEGATIVE); METHADONE URINE NEGATIVE (NEGATIVE); OPIATES URINE NEGATIVE (NEGATIVE); PHENCYCLIDINE URINE NEGATIVE (NEGATIVE)
--- NOTE | 2018-10-21 19:17 | ECGEPIP ---
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
[2018-10-21] MEDS ORDERED: traZODone 100 MG TAB PO ONE (19:45)
[2018-10-22 06:13] VITALS: BP 130/73
--- NOTE | 2018-10-23 15:35 | REP ---
LEFT RIBS WITHOUT PA CHEST: 10/21/2018. Comparison: PA and lateral chest today. Clinical history: Left posterior rib pain. Findings: Four views show subtle lucency over posterior left 8th rib on one-view only. It appears to extend off the rib margin and suggest a bronchial edge. There is no displaced fracture, pleural effusion, pleural thickening, or other focal rib finding. Some minor degenerative changes in the spine and shoulder joints. Impression: 1. I cannot confirm a left posterior left 8th rib fracture. The subtle lucency overlying left posterior 8th rib projects beyond it and therefore I suspect represents a superimposed bronchial edge. Please correlate clinically. No effusion, pneumothorax or other finding. Electronically Signed by Corky Zamorano MD 10/23/2018 04:05 P
--- NOTE | 2018-10-23 15:36 | REP ---
CHEST PA AND LATERAL: 10/21/2018. Clinical history: Left posterior rib pain. Comparison: 08/02/2017. Findings: The lung mckeon are well inflated without infiltrate or effusion. There are a few cuffed bronchi in the perihilar regions that may be reactive airway disease or bronchitis. No infiltrate, atelectasis, mass or effusion. Heart not enlarged. The aorta and airway intact. Gentle dextroconvex curve in the thoracic spine. Bony structures without any acute finding on this chest film. Impression: 1. Some peribronchial thickening that may reflect reactive airway disease or bronchitis but no infiltrate, effusion, cardiomegaly, edema, atelectasis or mass. 2. No acute bony finding. Electronically Signed by Corky Zamorano MD 10/23/2018 04:05 P
== END 2018-10-22 08:37 ==
LOC: M ED 05:14
DX: R45.851 Suicidal ideations (principal); T43.642A Poisoning by ecstasy, intentional self-harm, initial encounter; X58.XXXA Exposure to other specified factors, initial encounter; Y92.89 Other specified places as the place of occurrence of the external cause
CPT/HCPCS: 71046; 71100; 80048; 80076; 80307; 81001; 82550; 82553; 84443; 85025; 93005; 93041; 94760; 96374; 99285; G0480; J2060

== ENCOUNTER 2018-11-03 15:02 | Inpatient (IN) | payer OTHER ==
[~2018-11-03] VITALS: Ht 165.1 cm; Wt 63.6 kg
[2018-11-03] MEDS ORDERED: TRAZ-252 PO (15:08)
[2018-11-03] MEDS ORDERED: QUET200T2 PO (15:08)
[2018-11-03] MEDS ORDERED: HYDR-3363 PO (15:08)
[2018-11-03 16:11] LABS: HEMATOCRIT 38.4 % (42.0-52.0); HEMOGLOBIN 12.9 g/dl (13.5-17.5); MEAN CORPUSCULAR HEMOGLOBIN 28.2 pg (27.0-33.0); MEAN CORPUSCULAR HGB CONC 33.6 g/dl (32.0-36.5); MEAN CORPUSCULAR VOLUME 83.8 fl (80.0-96.0); PLATELET COUNT, AUTOMATED 359 10^3/uL (150-450); RED BLOOD COUNT 4.58 10^6/uL (4.30-6.10); WHITE BLOOD COUNT 9.2 10^3/uL (4.0-10.0)
[2018-11-03 16:46] LABS: AMPHETAMINES LEVEL URINE POSITIVE (NEGATIVE); BARBITURATES URINE NEGATIVE (NEGATIVE); BENZODIAZEPINES URINE NEGATIVE (NEGATIVE); CANNABINOIDS URINE NEGATIVE (NEGATIVE); COCAINE METABOLITE URINE POSITIVE (NEGATIVE); METHADONE URINE NEGATIVE (NEGATIVE); OPIATES URINE NEGATIVE (NEGATIVE); PHENCYCLIDINE URINE NEGATIVE (NEGATIVE)
[2018-11-03 17:01] LABS: ACETAMINOPHEN LEVEL < 2.0 UG/ML (10.0-30.0); ALBUMIN 3.6 GM/DL (3.2-5.2); ALT/SGPT 106 U/L (12-78); BILIRUBIN,DIRECT 0.2 MG/DL (0.0-0.2); BILIRUBIN,TOTAL 0.9 MG/DL (0.2-1.0); BLOOD UREA NITROGEN 8 MG/DL (7-18); CARBON DIOXIDE LEVEL 27 MEQ/L (21-32); CHLORIDE LEVEL 106 MEQ/L (98-107); CREATININE FOR GFR 0.91 MG/DL (0.70-1.30); ETHYL ALCOHOL (ETHANOL) < 0.003 % (0.000-0.010); GLOMERULAR FILTRATION RATE > 60.0 (>60); GLUCOSE, FASTING 83 MG/DL (70-100); SALICYLATE LEVEL < 1.7 MG/DL (5.0-30.0); SODIUM LEVEL 140 MEQ/L (136-145); THYROID STIMULATING HORMONE 0.412 uIU/ML (0.358-3.740); TOTAL PROTEIN 6.9 GM/DL (6.4-8.2)
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
[2018-11-03] MEDS ORDERED: AUGMENTIN 875 MG TAB PO ONE (20:30)
[2018-11-03] MEDS: QUEtiapine FUMARATE 200 MG TAB PO SCH (21:00)
[2018-11-03 23:40] VITALS: BP 118/72
[2018-11-04] MEDS: hydrOXYzine 25 MG TAB PO SCH ×2 (00:18→22:18)
[2018-11-04] MEDS: ACETAMINOPHEN 500 MG TAB PO PRN ×2 (00:19→16:47)
[2018-11-04] MEDS: traZODone 50 MG TAB PO SCH ×2 (00:19→22:18)
--- NOTE | 2018-11-04 00:28 | HPEPDOC ---
General Date of Admission Nov 03, 2018 at 21:32 Date of Service: Nov 03, 2018 Chief Complaint The patient is a 48-year-old male admitted with a reason for visit of Suicidal Ideations, Superficial Thrombophlebitis. Source: Patient Exam Limitations: No limitations Severity: Moderate History of Present Illness 48 year old male brought himself to the ED by walking because he was feeling depressed and was having suicidal thoughts. He has been struggling with substance abuse and IV drug use. He was sober in the earlier part of the year then relapsed in september which is causing problems in his marriage so he was feeling depressed and suicidal so came to the ED. He used TA yesterday injected into both the arms and says the veins immediately became hard and the ta in the syringe also became hard. He also complained of fever and chills this am and 2 episodes of vomiting. He had left upper extremity US in the ED. He was found to have left basilic vein thrombosis. He was going to be transferred to a psych unit of another hospital as our [facility] did not have any beds but because of the Thrombophlebitis he was not accepted into the Psych unit. He is being admitted to Med Surg for acute superficial thrombophlebitis , depression with suicidal ideas. Home Medications Scheduled Hydroxyzine HCl (Hydroxyzine HCl) 25 Mg Tablet, 25 MG PO QHS, (Reported) Quetiapine Fumarate (Quetiapine Fumarate) 200 Mg Tablet, 200 MG PO TID, (Reported) Trazodone HCl (Trazodone HCl) 50 Mg Tablet, 200 MG PO QHS, (Reported) Allergies Coded Allergies: No Known Allergies (Unverified , 08/29/18) Past Medical History Medical History Hepatitis C, depression with suicidal ideas, polysubstance abuse , IV drug use , BPH, GERD Family History Significant Family History: COPD (mother), Heart disease (father) Social History * Smoker: current smoker Alcohol: Denies Drugs: cocaine, IV drug use, other (ta, meth) A-FIB/CHADSVASC A-FIB History Current/History of A-Fib/PAF?: No Review of Systems Constitutional: Reports: Chills, Fever, Fatigue Eyes: Denies: Pain, Vision change ENT: Denies: Head Aches, Ear Pain, Dysphagia Skin: Reports: Other (hard and tender vein in bothe the antecubital fossa where he injected yesterday. ) Pulmonary: Denies: Dyspnea, Cough Cardiovascular: Denies: Chest Pain, Palpitations, Orthopnea, Paroxysmal Noc. Dyspnea, Lt Headedness Gastrointestinal: Reports: Vomiting; Denies: Nausea, Abdominal Pain, Diarrhea Genitourinary: Denies: Dysuria, Frequency, Incontinence, Retention Hematologic: Denies: Bruising, Bleeding Excessively Musculoskeletal: Denies: Neck Pain, Back Pain, Joint Pain, Muscle Pain, Spasms Neurological: Denies: Weakness, Numbness, Change in speech, Confusion Psych: Reports: Depression, Thoughts of Self Harm Physical Examination General Exam: Positive: Alert, Cooperative, No Acute Distress Eye Exam: Positive: PERRLA, Conjunctiva & lids normal, EOMI; Negative: Sclera icteric ENT Exam: Positive: Atraumatic, Mucous membr. moist/pink, Pharynx Normal Neck Exam: Positive: Supple; Negative: JVD, thyromegaly Chest Exam: Positive: Clear to auscultation, Normal air movement Heart Exam: Positive: Rate Normal, Regular Rhythm, Normal S1, Normal S2; Negative: Murmurs, Rubs Abdomen Exam: Positive: Normal bowel sounds, Soft; Negative: Tenderness, Hepatospenomegaly Extremity Exam: Positive: Normal pulses; Negative: Clubbing, Cyanosis, Edema Skin Exam: Positive: Other skin issue (superficial thromophlebitis in bothe the antecubital fossa vein.) Psych Exam: Positive: Anxiety, Memory Intact, Oriented x 3, Other (depressed) Vital Signs Vital Signs Date Time Temp Pulse Resp B/P (MAP) Pulse Ox O2 Delivery O2 Flow Rate FiO2 11/03/18 18:14 98.8 81 20 140/85 (103) 96 Room Air Laboratory Data Labs 24H Laboratory Tests 2 11/03/18 16:02: Nucleated Red Blood Cells % (auto) 0.0, Anion Gap 7L, Glomerular Filtration Rate > 60.0, Calcium Level 9.0, Aspartate Amino Transf (AST/SGOT) 50H, Alanine Aminotransferase (ALT/SGPT) 106H, Alkaline Phosphatase 71, Total Bilirubin 0.9, Direct Bilirubin 0.2, Total Protein 6.9, Albumin 3.6, Albumin/Globulin Ratio 1.09, Thyroid Stimulating Hormone (TSH) 0.412, Salicylates Level < 1.7L, Urine Amphetamines Screen POSITIVEH, Urine Benzodiazepines Screen NEGATIVE, Urine Opiates Screen NEGATIVE, Urine Methadone Screen NEGATIVE, Acetaminophen Level < 2.0L, Urine Barbiturates Screen NEGATIVE, Urine Phencyclidine Screen NEGATIVE, Urine Cocaine Metabolite Screen POSITIVEH, Urine Cannabinoids Screen NEGATIVE, Ethyl Alcohol Level < 0.003 CBC/BMP Laboratory Tests 11/03/18 16:02 Red Blood Count 4.58, Mean Corpuscular Volume 83.8, Mean Corpuscular Hemoglobin 28.2, Mean Corpuscular Hemoglobin Concent 33.6, Red Cell Distribution Width 15.3 H Assessment/Plan 48 year old male brought himself to the ED by walking because he was feeling depressed and was having suicidal thoughts. He has been struggling with substance abuse and IV drug use. He was sober in the earlier part of the year then relapsed in september which is causing problems in his marriage so he was feeling depressed and suicidal so came to the ED. He used TA yesterday injected into both the arms and says the veins immediately became hard and the ta in the syringe also became hard. He also complained of fever and chills this am and 2 episodes of vomiting. He had left upper extremity US in the ED. He was found to have left basilic vein thrombosis. He was going to be transferred to a psych unit of another hospital as our [facility] did not have any beds but because of the Thrombophlebitis he was not accepted into the Psych unit. He is being admitted to Med Surg for acute superficial thrombophlebitis, depression with suicidal ideas. Superficial thrombophlebitis on the left basilic vein i think he also has on the right basilic vein will give augmentin tylenol for pain or fever warm compresses. Depression with suicidal ideas Psych consult when medically cleared Depression and anxiety continue seroquel and trazodone. Polysubstance use IV use. used to follow with [facility]. Plan / VTE VTE Prophylaxis Ordered?: Yes MAGUE ROSE MD Nov 03, 2018 23:21
[2018-11-04 06:00] VITALS: BP 90/57
[2018-11-04 06:05] VITALS: BP 90/54
[2018-11-04 10:01] LABS: HEMATOCRIT 38.3 % (42.0-52.0); MEAN CORPUSCULAR HEMOGLOBIN 28.4 pg (27.0-33.0); MEAN CORPUSCULAR HGB CONC 33.9 g/dl (32.0-36.5); MEAN CORPUSCULAR VOLUME 83.6 fl (80.0-96.0); PLATELET COUNT, AUTOMATED 333 10^3/uL (150-450); RED BLOOD COUNT 4.58 10^6/uL (4.30-6.10); WHITE BLOOD COUNT 6.3 10^3/uL (4.0-10.0)
[2018-11-04 10:16] LABS: BLOOD UREA NITROGEN 9 MG/DL (7-18); CALCIUM LEVEL 9.2 MG/DL (8.5-10.1); CARBON DIOXIDE LEVEL 27 MEQ/L (21-32); CHLORIDE LEVEL 105 MEQ/L (98-107); CREATININE FOR GFR 1.21 MG/DL (0.70-1.30); GLOMERULAR FILTRATION RATE > 60.0 (>60); GLUCOSE, FASTING 119 MG/DL (70-100); POTASSIUM SERUM 4.1 MEQ/L (3.5-5.1); SODIUM LEVEL 140 MEQ/L (136-145)
[2018-11-04] MEDS: AUGMENTIN 875 MG TAB PO SCH ×2 (11:12→22:18)
[2018-11-04] MEDS: QUEtiapine FUMARATE 200 MG TAB PO SCH ×3 (11:12→22:18)
[2018-11-04 14:00] VITALS: BP 96/62
--- NOTE | 2018-11-04 17:50 | IPNPDOC ---
Text Note Date of Service The patient was seen on 11/04/18. NOTE S: patient states feeling better today. still tired. States no suicidal ideat ion. sitter in room. states arm pain improving O: Vitals as below HRRR LCTA Ext: bilateral upper arms with minimal edema/swelling; antecubital ropiness palpable along vein A/P Superficial thrombophlebitis from injection of DEANA - symptomatic care with po antibiotics and warm compresses. See H&P for details Suicidal ideation - improved per patient. will consult psych tomorrow. [facility] today when patient in ED so admitted to floor VS,Abilio, I+O VS, Abilio, I+O Laboratory Tests 11/04/18 09:34 Red Blood Count 4.58, Mean Corpuscular Volume 83.6, Mean Corpuscular Hemoglobin 28.4, Mean Corpuscular Hemoglobin Concent 33.9, Red Cell Distribution Width 15.5 H, Calcium Level 9.2 Vital Signs Date Time Temp Pulse Resp B/P (MAP) Pulse Ox O2 Delivery O2 Flow Rate FiO2 11/04/18 14:00 99.7 68 18 96/62 (73) 97 11/03/18 23:35 Room Air I&O- Last 24 Hours up to 6 AM 11/04/18 05:59 Intake Total 0 ml Balance 0 ml ARYAN LAW DO Nov 04, 2018 17:50
[2018-11-04 22:00] VITALS: BP 111/71
[2018-11-05 06:00] VITALS: BP 108/57
[2018-11-05] MEDS: AUGMENTIN 875 MG TAB PO SCH (08:49)
[2018-11-05] MEDS: QUEtiapine FUMARATE 200 MG TAB PO SCH (08:49)
[2018-11-05] MEDS ORDERED: PROBCAP14 PO (12:00)
[2018-11-05] MEDS ORDERED: AMOX875T2 PO (12:00)
--- NOTE | 2018-11-05 17:13 | DS.PDOC ---
Discharge Summary General Date of Admission Nov 03, 2018 at 21:32 Date of Discharge 11/05/18 Attending Physician: ARYAN LAW DO Specialist/Consultants Involve Dr Oswald - psychiatry Discharge Summary PROCEDURES PERFORMED DURING STAY: none ADMITTING DIAGNOSES: Superficial thrombophlebitis from injection of TA - Suicidal ideation - resolved Polysubstance abuse Depression/anxiety DISCHARGE DIAGNOSES: Superficial thrombophlebitis from injection of TA (right and left basilic vein) - Suicidal ideation - resolved Polysubstance abuse Depression/anxiety COMPLICATIONS/CHIEF COMPLAINT: Suicidal Ideations, Superficial Thrombophlebitis. HISTORY OF PRESENT ILLNESS: 48 year old male brought himself to the ED by walking because he was feeling depressed and was having suicidal thoughts. He has been struggling with substance abuse and IV drug use. He was sober in the earlier part of the year then relapsed in september which is causing problems in his marriage so he was feeling depressed and suicidal so came to the ED. He used TA yesterday injected into both the arms and says the veins immediately became hard and the ta in the syringe also became hard. He also complained of fever and chills this am and 2 episodes of vomiting. He had left upper extremity US in the ED. He was found to have left basilic vein thrombosis. He was going to be transferred to a psych unit of another hospital as our [facility] did not have any beds but because of the Thrombophlebitis he was not accepted into the Psych unit. He is being admitted to Med Surg for acute superficial thrombophlebitis, depression with suicidal ideas. See H&P for further details HOSPITAL COURSE: Patient admitted - given warm compresses and augmentin for supe rficial phlebitis. He had 1:1 observation and once he was no longer under the influence of TA, he stated he is not suicidal. Case discussed with Dr Oswald who is familar with patient and his psychiatric history. It is her recommendation that if he is no longer suicidal , patient does not need inpatient psychiatric facility and can discharge home with his usual psychiatric follow up. DISCHARGE MEDICATIONS: Please see below. ALLERGIES: Please see below. PHYSICAL EXAMINATION ON DISCHARGE: VITAL SIGNS: Please see below. GENERAL: pleasant NAD AAOx3 HRRR LCTA Ext: no edema to arms SKIN: no erythema or palpable mass to forearms bilaterally, mild tenderness and ropiness to superficial antecub vein. LABORATORY DATA: Please see below. IMAGING: US negative for DVT PROGNOSIS: fair ACTIVITY: as tolerated; recommend warm compresses for 15min three times a day for next 1 week DIET: as tolerated DISCHARGE PLAN:discharge home DISCHARGE INSTRUCTIONS: 1. augmentin 875mg BID x 7 days 2. warm compresses 3. follow up with PCP in 5-7 days to recheck arms 4. follow up with mental health counselor and psychiatrist as previously scheduled. DISCHARGE CONDITION: stable TIME SPENT ON DISCHARGE: 30 minute Vital Signs/I&Os Vital Signs Date Time Temp Pulse Resp B/P (MAP) Pulse Ox O2 Delivery O2 Flow Rate FiO2 11/05/18 06:00 99.2 63 18 108/57 (74) 99 11/03/18 23:35 Room Air I&O- Last 24 Hours up to 6 AM 11/05/18 06:00 Intake Total 2825 ml Balance 2825 ml Discharge Medications Scheduled Amoxicillin/Potassium Clav (Amox-Clav 875-125 mg Tablet) 1 Each Tablet, 875 MG PO BID Hydroxyzine HCl (Hydroxyzine HCl) 25 Mg Tablet, 25 MG PO QHS, (Reported) Lactobacillus Acidophilus (Probiotic) 1 Each Capsule, 1 CAP PO BID Quetiapine Fumarate (Quetiapine Fumarate) 200 Mg Tablet, 200 MG PO TID, (Reported) Trazodone HCl (Trazodone HCl) 50 Mg Tablet, 200 MG PO QHS, (Reported) Allergies Coded Allergies: No Known Allergies (Unverified , 08/29/18) ARYAN LAW DO Nov 05, 2018 12:03
== END 2018-11-05 12:15 | disposition home or self-care (01) | DRG 197 ==
LOC: M ED 15:02 → M ED INP 21:32 → M MSPAV 23:40
PROVIDERS: ADMIT Internal Medicine Nephrology; ATTEND Family Medicine
DX: I80.8 Phlebitis and thrombophlebitis of other sites (principal); R45.851 Suicidal ideations; F32.9 Major depressive disorder, single episode, unspecified; F41.9 Anxiety disorder, unspecified; Z79.899 Other long term (current) drug therapy; B18.2 Chronic viral hepatitis C; F17.200 Nicotine dependence, unspecified, uncomplicated; N40.0 Benign prostatic hyperplasia without lower urinary tract symptoms; K21.9 Gastro-esophageal reflux disease without esophagitis

== ENCOUNTER 2018-11-25 18:36 | Emergency (ER) | payer OTHER ==
[~2018-11-25] VITALS: Ht 165.1 cm; Wt 60.7 kg
[~2018-11-25 18:36] MED LIST changes: +AMOX875T2 PO; +PROBCAP14 PO
[2018-11-25 18:37] VITALS: BP 137/82
[2018-11-25] MEDS ORDERED: NALT50TA4 (18:44)
[2018-11-25] MEDS ORDERED: ARIP1TAB6 (18:44)
[2018-11-25 19:32] LABS: BASO % 0.4 % (0.0-1.0); EOS # 0.2 10^3/uL (0.0-0.5); EOS % 2.7 % (0.0-3.0); HEMATOCRIT 36.1 % (42.0-52.0); HEMOGLOBIN 11.9 g/dl (13.5-17.5); LYMPH # 1.7 10^3/uL (1.5-5.0); LYMPH % 30.3 % (24.0-44.0); MEAN CORPUSCULAR HEMOGLOBIN 27.7 pg (27.0-33.0); MEAN CORPUSCULAR VOLUME 84.1 fl (80.0-96.0); MONO # 0.5 10^3/uL (0.0-0.8); MONO % 9.6 % (0.0-5.0); NEUTROPHILS # 3.2 10^3/uL (1.5-8.5); NEUTROPHILS % 56.8 % (36.0-66.0); PLATELET COUNT, AUTOMATED 363 10^3/uL (150-450); RED BLOOD COUNT 4.29 10^6/uL (4.30-6.10); WHITE BLOOD COUNT 5.5 10^3/uL (4.0-10.0)
[2018-11-25 19:47] LABS: BLOOD UREA NITROGEN 13 MG/DL (7-18); CARBON DIOXIDE LEVEL 30 MEQ/L (21-32); CHLORIDE LEVEL 104 MEQ/L (98-107); CREATININE FOR GFR 0.98 MG/DL (0.70-1.30); GLOMERULAR FILTRATION RATE > 60.0 (>60); GLUCOSE, FASTING 81 MG/DL (70-100); POTASSIUM SERUM 4.4 MEQ/L (3.5-5.1); SODIUM LEVEL 140 MEQ/L (136-145)
== END 2018-11-25 21:41 | disposition left against medical advice (07) ==
LOC: M ED 18:36
DX: I80.203 Phlebitis and thrombophlebitis of unspecified deep vessels of lower extremities, bilateral (principal); F17.200 Nicotine dependence, unspecified, uncomplicated; F19.10 Other psychoactive substance abuse, uncomplicated; Z53.21 Procedure and treatment not carried out due to patient leaving prior to being seen by health care provider; Z79.2 Long term (current) use of antibiotics; Z79.899 Other long term (current) drug therapy

== ENCOUNTER → 2018-12-05 | Outpatient (CLI) | payer OTHER ==
[~2018-12-05] MED LIST changes: +ARIP1TAB6; +NALT50TA4
[2018-12-05 16:58] LABS: BASO % 0.5 % (0.0-1.0); EOS # 0.1 10^3/uL (0.0-0.5); EOS % 2.3 % (0.0-3.0); HEMATOCRIT 36.5 % (42.0-52.0); HEMOGLOBIN 11.8 g/dl (13.5-17.5); LYMPH # 1.6 10^3/uL (1.5-5.0); LYMPH % 26.5 % (24.0-44.0); MEAN CORPUSCULAR HEMOGLOBIN 27.8 pg (27.0-33.0); MEAN CORPUSCULAR HGB CONC 32.3 g/dl (32.0-36.5); MEAN CORPUSCULAR VOLUME 86.1 fl (80.0-96.0); MONO # 0.6 10^3/uL (0.0-0.8); MONO % 9.9 % (0.0-5.0); NEUTROPHILS # 3.7 10^3/uL (1.5-8.5); NEUTROPHILS % 60.6 % (36.0-66.0); PLATELET COUNT, AUTOMATED 314 10^3/uL (150-450); RED BLOOD COUNT 4.24 10^6/uL (4.30-6.10); WHITE BLOOD COUNT 6.2 10^3/uL (4.0-10.0)
[2018-12-05 17:19] LABS: ALBUMIN 3.6 GM/DL (3.2-5.2); ALT/SGPT 256 U/L (12-78); BILIRUBIN,TOTAL 0.6 MG/DL (0.2-1.0); BLOOD UREA NITROGEN 14 MG/DL (7-18); CALCIUM LEVEL 9.2 MG/DL (8.5-10.1); CARBON DIOXIDE LEVEL 30 MEQ/L (21-32); CHLORIDE LEVEL 104 MEQ/L (98-107); CREATININE FOR GFR 1.04 MG/DL (0.70-1.30); GLOMERULAR FILTRATION RATE > 60.0 (>60); GLUCOSE, FASTING 84 MG/DL (70-100); POTASSIUM SERUM 4.4 MEQ/L (3.5-5.1); SODIUM LEVEL 138 MEQ/L (136-145)
[2018-12-05 18:04] LABS: HIV 1&2 SCREEN CENTAUR NEGATIVE (NEGATIVE)
[2018-12-07 10:43] LABS: HEPATITIS B SURFACE ANTIBODY NEGATIVE (POSITIVE)
[2018-12-07 10:52] LABS: HEPATITIS B SURFACE ANTIGEN NEGATIVE (NEGATIVE)
[2018-12-07 11:21] LABS: HEPATITIS A ANTIBODY IGM NEGATIVE (NEGATIVE)
[2018-12-07 12:39] LABS: HEPATITIS C VIRUS ABY INDEX > 11.0 INDEX (<0.8)
[2018-12-11 16:47] LABS: HEPATITIS A IgG TOTAL Negative (Negative); HEPATITIS B CORE ANTIBODY IGG Negative (Negative); HEPATITIS C QUANTITATION 164840 IU/mL (.); HEPATITIS C VIRUS GENOTYPE 2b (.)
== END ==
LOC: M LAB 14:59
PROVIDERS: ATTEND Nurse Practitioner Adult Health
DX: Z00.00 Encounter for general adult medical examination without abnormal findings (principal); Z20.5 Contact with and (suspected) exposure to viral hepatitis; Z11.4 Encounter for screening for human immunodeficiency virus [HIV]; B18.2 Chronic viral hepatitis C; Z20.2 Contact with and (suspected) exposure to infections with a predominantly sexual mode of transmission

== ENCOUNTER 2019-03-26 09:40 | Inpatient (IN) | payer MEDICAID, OTHER ==
[~2019-03-26] VITALS: Ht 165.1 cm; Wt 58.2 kg
[~2019-03-26 09:40] MED LIST changes: -ARIP1TAB6; -OMEP40CA2 PO; +OMEP40CA97 PO; -TRAZ-163 PO; +TRAZ-257 PO; -TRAZ10TA PO; +TRAZ1TAB12 PO
[2019-03-26] MEDS ORDERED: TRAZ150T90 PO (10:19)
[2019-03-26] MEDS ORDERED: BUPR1FIL6 SL (10:19)
[2019-03-26 11:00] LABS: HEMATOCRIT 42.3 % (42.0-52.0); HEMOGLOBIN 14.3 g/dl (13.5-17.5); MEAN CORPUSCULAR HEMOGLOBIN 29.5 pg (27.0-33.0); MEAN CORPUSCULAR HGB CONC 33.8 g/dl (32.0-36.5); MEAN CORPUSCULAR VOLUME 87.2 fl (80.0-96.0); PLATELET COUNT, AUTOMATED 282 10^3/uL (150-450); RED BLOOD COUNT 4.85 10^6/uL (4.30-6.10); WHITE BLOOD COUNT 5.7 10^3/uL (4.0-10.0)
[2019-03-26 11:13] LABS: BASO % 0.4 % (0.0-1.0); EOS # 0.1 10^3/uL (0.0-0.5); EOS % 2.3 % (0.0-3.0); LYMPH # 1.4 10^3/uL (1.5-5.0); LYMPH % 23.9 % (24.0-44.0); MONO # 0.6 10^3/uL (0.0-0.8); MONO % 9.8 % (0.0-5.0); NEUTROPHILS # 3.6 10^3/uL (1.5-8.5); NEUTROPHILS % 63.4 % (36.0-66.0)
[2019-03-26 11:30] LABS: AMPHETAMINES LEVEL URINE POSITIVE (NEGATIVE); BARBITURATES URINE NEGATIVE (NEGATIVE); BENZODIAZEPINES URINE NEGATIVE (NEGATIVE); CANNABINOIDS URINE NEGATIVE (NEGATIVE); COCAINE METABOLITE URINE NEGATIVE (NEGATIVE); METHADONE URINE NEGATIVE (NEGATIVE); OPIATES URINE NEGATIVE (NEGATIVE); PHENCYCLIDINE URINE NEGATIVE (NEGATIVE)
[2019-03-26 11:36] LABS: ERYTHROCYTE SEDIMENTATION RATE 17 mm/hr (0-15)
[2019-03-26 12:07] LABS: ACETAMINOPHEN LEVEL < 2.0 UG/ML (10.0-30.0); ALBUMIN 3.7 GM/DL (3.2-5.2); ALT/SGPT 23 U/L (12-78); BILIRUBIN,DIRECT 0.2 MG/DL (0.0-0.2); BILIRUBIN,TOTAL 0.7 MG/DL (0.2-1.0); BLOOD UREA NITROGEN 13 MG/DL (7-18); C REACTIVE PROTEIN QUANTITATIV 4.98 MG/DL (0.00-0.30); CARBON DIOXIDE LEVEL 29 MEQ/L (21-32); ETHYL ALCOHOL (ETHANOL) 0.003 % (0.000-0.010); GLUCOSE, FASTING 94 MG/DL (70-100); SALICYLATE LEVEL 3.1 MG/DL (5.0-30.0); TOTAL PROTEIN 7.2 GM/DL (6.4-8.2)
[2019-03-26 12:30] LABS: CHLORIDE LEVEL 106 MEQ/L (98-107); GLOMERULAR FILTRATION RATE > 60.0 (>60); POTASSIUM SERUM 3.7 MEQ/L (3.5-5.1); SODIUM LEVEL 141 MEQ/L (136-145)
[2019-03-26] MEDS ORDERED: CEPHALEXIN 500 MG CAP PO ONE (15:00)
[2019-03-26] MEDS ORDERED: traZODone 50 MG TAB PO PRN (15:15)
[2019-03-26] MEDS ORDERED: MOM 30ML SUSPENSION UDC PO PRN (15:15)
[2019-03-26] MEDS ORDERED: MAALOX 30 ML SUSP *UDC PO PRN (15:15)
[2019-03-26] MEDS ORDERED: OLANZapine ORAL DISINTEGRATING TAB 5MG PO PRN (15:15)
[2019-03-26] MEDS ORDERED: ACETAMINOPHEN TAB 650MG DOSE (2X325MG) PO PRN (15:15)
[2019-03-26] MEDS ORDERED: IBUP1TAB7 PO (15:16)
[2019-03-26 16:32] VITALS: BP 120/80
[2019-03-26] MEDS: PROPRANOLOL 10 MG TAB PO SCH ×2 (16:50→21:05)
[2019-03-26] MEDS: CitaloPRAM (CeleXA) 10 MG TABLET PO SCH (21:05)
[2019-03-27 06:05] VITALS: BP 117/73
[2019-03-27] MEDS ORDERED: BUPRENORPHINE/NALOXONE 8-2MG SUBLINGUAL TABLET(SUBOXONE) SL SCH (09:00)
[2019-03-27] MEDS: PROPRANOLOL 10 MG TAB PO SCH ×3 (09:00→21:00)
[2019-03-27] MEDS: NICOTINE 21MG/24HR 1 EA TRANSDERMAL TD SCH (09:00)
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
[2019-03-27] MEDS: BUPRENORPHINE/NALOXONE 2-0.5MG SUBLINGUAL TABLET(SUBOXONE) SL SCH ×2 (11:56→21:00)
--- NOTE | 2019-03-27 14:09 | HPEPDOC ---
General Date of Admission Mar 26, 2019 at 15:03 Date of Service: Mar 27, 2019 Chief Complaint The patient is a 48-year-old male admitted with a reason for visit of Unspecified Depressive Disorder. Source: Patient History of Present Illness 48 year old male admitted to [facility] for depression with suicidal ideas. He has been on a drug binge recently and sold off his belongings.. Valeriano seeing the patient for medical history and physical . He complained of right flank pain which started this morning. he denied any dysuria, denied any blood in urine. the pain says in the right CV angle about 3/10 in intensity dull aching with no radiation. He says he had kidney stones before and last passed about 2 years ago. Home Medications Scheduled Aripiprazole (Aripiprazole) 5 Mg Tablet, 5 MG PO DAILY for antidepressant augmentation Buprenorphine HCl/Naloxone HCl (Buprenorp-Nalox 4-1 mg Sl Film) 1 Each Film, 1 FILM SL BID, (Reported) Citalopram Hydrobromide (Celexa) 10 Mg Tablet, 10 MG PO QHS for mood Propranolol HCl (Propranolol HCl) 10 Mg Tablet, 10 MG PO TID for anxiety Trazodone HCl (Trazodone HCl) 150 Mg Tablet, 150 MG PO QHS for insomnia Scheduled PRN Ibuprofen (Ibuprofen) 800 Mg Tablet, 800 MG PO TID PRN for PAIN, (Reported) Allergies Coded Allergies: No Known Allergies (Unverified , 08/29/18) Past Medical History Medical History Hepatitis C, depression with suicidal ideas, polysubstance abuse , IV drug use , BPH, GERD, kidney stones. Family History Significant Family History: COPD (mother), Heart disease (father), Other (kidney stones bother father and mother) Social History * Smoker: current smoker Alcohol: Denies Drugs: IV drug use (history of heroin use on suboxone), other (ta and meth) A-FIB/CHADSVASC A-FIB History Current/History of A-Fib/PAF?: No Physical Examination General Exam: Positive: Alert, Cooperative, No Acute Distress Eye Exam: Positive: PERRLA, Conjunctiva & lids normal, EOMI; Negative: Sclera icteric ENT Exam: Positive: Atraumatic, Mucous membr. moist/pink, Pharynx Normal Neck Exam: Positive: Supple; Negative: JVD, thyromegaly Chest Exam: Positive: Clear to auscultation, Normal air movement Heart Exam: Positive: Rate Normal, Regular Rhythm, Normal S1, Normal S2; Negative: Murmurs, Rubs Abdomen Exam: Positive: Normal bowel sounds, Soft, Other (right cva and lower slightly tender); Negative: Tenderness, Hepatospenomegaly Extremity Exam: Positive: Normal pulses; Negative: Clubbing, Cyanosis, Edema Skin Exam: Positive: Nl turgor and temperature Vital Signs Vital Signs Date Time Temp Pulse Resp B/P (MAP) Pulse Ox O2 Delivery O2 Flow Rate FiO2 03/27/19 09:00 84 102/71 03/27/19 08:49 Room Air 03/27/19 06:05 97.7 16 03/26/19 15:05 95 Assessment/Plan 48 year old male admitted to [facility] for depression with suicidal ideas. He has been on a drug binge recently and sold off his belongings.. Valeriano seeing the patient for medical history and physical . Flank pain will get a KUB Depression as per psychiatry Polysubstance abuse as per psychiatry GERD PPI Plan / VTE VTE Prophylaxis Ordered?: No MAGUE ROSE MD Mar 27, 2019 14:09
[2019-03-27 15:59] VITALS: BP 98/57
[2019-03-27] MEDS: CitaloPRAM (CeleXA) 10 MG TABLET PO SCH (20:59)
[2019-03-27] MEDS: traZODone 50 MG TAB PO PRN (21:00)
--- NOTE | 2019-03-28 01:09 | REP ---
Clinical: Right flank pain. Technique: Single supine view of the abdomen and pelvis. Findings: Evaluation of the urinary tract system is limited due to technique and overlying bowel gas. No obvious intrauterine or definite ureteral calculi are identified. Pelvis is unremarkable and without obvious bladder stones. The bowel gas pattern demonstrates mild fecal stasis without evidence for obstruction or perforation. No organomegaly. No abnormal calcifications. Skeletal structures are intact. Impression: No obvious urinary tract calcifications appreciated. Electronically Signed by Slade Snu MD 03/28/2019 01:01 A
[2019-03-28 06:35] VITALS: BP 121/85
[2019-03-28] MEDS: PROPRANOLOL 10 MG TAB PO SCH ×3 (09:00→20:56)
[2019-03-28] MEDS: NICOTINE 21MG/24HR 1 EA TRANSDERMAL TD SCH (09:00)
[2019-03-28] MEDS: BUPRENORPHINE/NALOXONE 2-0.5MG SUBLINGUAL TABLET(SUBOXONE) SL SCH ×2 (09:30→20:50)
--- NOTE | 2019-03-28 09:51 | MHIPNPDOC ---
[facility] Progress Note Progress Note DATE OF SERVICE: 03/28/19 HISTORY: Patient is a 48 -year-old , male, with a history of methamphetamine use d/o severe and depression, SI last admitted [facility] 09/04/18 after methamphetamine use endorsing SI who present to the ED with thoughts of suicide after relapsing on methamphetamine that he use 3 doses prior admission to harm himself b/c his left him due to his previous drug relapse last week. Per ED, pt endorsed giving all of his belongs even his cell phone away after his left him due to having thoughts of killing himself. Pt's acute care nursing assistant per ED confirmed to ED staff that pt gave all his belongings away prior to coming to the hospital. Per ED, pt tearful when seen. Pt seen in his room and states he's doing "ok" today. Endorses depression with thoughts of suicide prior admission due to his leaving him after he relapsed on methamphetamine IV. States his mood is slightly better today and denies thoughts of suicide. States he takes abilify outpatient that he feels is beneficial and would like to restart. Asked why pt no longer on celexa that he was last d/c on and found beneficial and stated he didn't know but would like to restart for depression as he finds it helpful. Takes suboxone 06/[address] Pemberton BID and asking to restart. Asking to be referred to rehab so he can back to working on his sobriety that he had been doing for 6-7months prior admission. Denies SI/HI, hallucinations, delusions. Feels safe here. VITAL SIGNS: See below. NEW TEST RESULTS: See below. CURRENT MEDICATIONS: See below. MENTAL STATUS EXAMINATION: General Appearance: clean, appears stated age, hospital scrubs/clothing Build: average Demeanor: less withdrawn Eye Contact: average Activity: average Behavior: cooperative, withdrawn Speech: clear, normal volume, reg/rate,rhythm,volume Mood: less depressed Mood "better" Affect: less constricted Thought Process: logical/linear, less depressed, intact Thought Content (Delusions): none reported, denies SI, HI, AVH Thought Content (Other): none reported, appropriate Thought Content (Aggressive): none reported Perception (Hallucinations): none reported Perception (Other): none reported Cognition (Impairment of): none reported Cognition(Intelligence Est.): average Oriented: Awake, Alert, Oriented times three Insight: poor Judgment: Poor Psychosis: Denies DIAGNOSES: Depression Unspecified R/O substance induced mood d/o -amphetamine amphetamine use d/o Cluster B personality traits ASSESSMENT:Pt seen in his room and states he's feeling "better" today. Pt he's tolerating his medication and it's beneficial. He is attending groups and finding them beneficial. Advised pt that d/c assortment planner referred him to [facility] for rehab and pt states he's hopeful to be accepted and have an admission date soon as he is motivated to work on his sobriety after relapse. Denies SI/HI, hallucinations, delusions. Feels safe here. MANAGEMENT PLAN: continue plan. Referred to [facility] for rehab. abilify 5mg daily celexa 10mg qhs suboxone 4/1 bid TIME SPENT: 30 minutes. Vital Signs Vital Signs Date Time Temp Pulse Resp B/P (MAP) Pulse Ox O2 Delivery O2 Flow Rate FiO2 03/28/19 06:35 98.2 67 12 121/85 (97) Room Air 03/26/19 15:05 95 Current Medications Current Medications Medications (Trade) Dose Ordered Sig/Esther Route PRN Reason Start Time Stop Time Status Last Admin Dose Admin Acetaminophen (Tylenol Tab) 650 mg Q6HP PRN PO HEADACHE or DISCOMFORT 03/26/19 15:15 Al Hydrox/Mg Hydrox/Simethicone (Mylanta) 30 ml Q4HP PRN PO HEARTBURN/INDIGESTION 03/26/19 15:15 Aripiprazole (AbiLIFY) 5 mg DAILY PO 03/27/19 09:00 03/27/19 11:53 Buprenorphine/ Naloxone (Suboxone 2/ 0.5mg) 2 tab BID SL 03/27/19 09:00 03/27/19 21:00 Buprenorphine/ Naloxone (Suboxone 8/2mg) 1 tab BID SL 03/27/19 09:00 Cancel Citalopram Hydrobromide (CeleXA) 10 mg QHS PO 03/26/19 21:00 03/27/19 20:59 Home Med (Med Rec Complete!) ASDIRECTED XX 03/26/19 15:30 03/26/19 15:28 DC Magnesium Hydroxide (Milk Of Magnesia) 30 ml DAILYPRN PRN PO CONSTIPATION 03/26/19 15:15 Nicotine (Nicoderm Cq 21mg) 1 patch DAILY TD 03/27/19 09:00 Olanzapine (ZyPREXA ZYDIS) 10 mg Q4HP PRN PO AGITATION/ANXIETY 03/26/19 15:15 Propranolol HCl (Inderal) 10 mg TID PO 03/26/19 16:00 03/27/19 21:00 Trazodone HCl (Desyrel) 50 mg QHSP PRN PO INSOMNIA 03/26/19 15:15 03/27/19 10:19 DC 03/26/19 21:05 Trazodone HCl (Desyrel) 150 mg QHSP PRN PO INSOMNIA 03/27/19 21:00 03/27/19 21:00 Allergies Coded Allergies: No Known Allergies (Unverified , 08/29/18) ONEIDA RAMAN DO Mar 28, 2019 09:17
[2019-03-28 16:24] VITALS: BP 102/60
[2019-03-28] MEDS: CitaloPRAM (CeleXA) 10 MG TABLET PO SCH (20:50)
[2019-03-28] MEDS: traZODone 50 MG TAB PO PRN (20:54)
[2019-03-29 07:08] VITALS: BP 95/55
[2019-03-29] MEDS: PROPRANOLOL 10 MG TAB PO SCH ×3 (08:29→20:44)
[2019-03-29] MEDS: BUPRENORPHINE/NALOXONE 2-0.5MG SUBLINGUAL TABLET(SUBOXONE) SL SCH ×2 (08:29→20:38)
[2019-03-29] MEDS: NICOTINE 21MG/24HR 1 EA TRANSDERMAL TD SCH (08:29)
--- NOTE | 2019-03-29 09:15 | MHIPNPDOC ---
[facility] Progress Note Progress Note DATE OF SERVICE: 03/29/19 HISTORY: Patient is a 48 -year-old , male, with a history of methamphetamine use d/o severe and depression, SI last admitted [facility] 09/04/18 after methamphetamine use endorsing SI who present to the ED with thoughts of suicide after relapsing on methamphetamine that he use 3 doses prior admission to harm himself b/c his left him due to his previous drug relapse last week. Per ED, pt endorsed giving all of his belongs even his cell phone away after his left him due to having thoughts of killing himself. Pt's care taker per ED confirmed to ED staff that pt gave all his belongings away prior to coming to the hospital. Per ED, pt tearful when seen. Pt seen in his room and states he's doing "ok" today. Endorses depression with thoughts of suicide prior admission due to his leaving him after he relapsed on methamphetamine IV. States his mood is slightly better today and denies thoughts of suicide. States he takes abilify outpatient that he feels is beneficial and would like to restart. Asked why pt no longer on celexa that he was last d/c on and found beneficial and stated he didn't know but would like to restart for depression as he finds it helpful. Takes suboxone 06/[address] Pemberton BID and asking to restart. Asking to be referred to rehab so he can back to working on his sobriety that he had been doing for 6-7months prior admission. Denies SI/HI, hallucinations, delusions. Feels safe here. VITAL SIGNS: See below. NEW TEST RESULTS: See below. CURRENT MEDICATIONS: See below. MENTAL STATUS EXAMINATION: General Appearance: clean, appears stated age, hospital scrubs/clothing Build: average Demeanor: less withdrawn Eye Contact: average Activity: average Behavior: cooperative, withdrawn Speech: clear, normal volume, reg/rate,rhythm,volume Mood: less depressed Mood "alright" Affect: less constricted Thought Process: logical/linear, less depressed, intact Thought Content (Delusions): none reported, denies SI, HI, AVH Thought Content (Other): none reported, appropriate Thought Content (Aggressive): none reported Perception (Hallucinations): none reported Perception (Other): none reported Cognition (Impairment of): none reported Cognition(Intelligence Est.): average Oriented: Awake, Alert, Oriented times three Insight: fair Judgment: fair Psychosis: Denies DIAGNOSES: Depression Unspecified R/O substance induced mood d/o -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 Advised he has a bed date at [facility] rehab on monday and pt states that's great and he's looking forward to going and getting back into sobriety after relapse. Pt he's tolerating his medication and it's beneficial. He is attending groups and finding them beneficial. Denies SI/HI, hallucinations, delusions. Feels safe here. MANAGEMENT PLAN: continue plan. Referred to [facility] for rehab with bed date for admission there on Monday. abilify 5mg daily celexa 10mg qhs suboxone 4/1 bid TIME SPENT: 30 minutes. Vital Signs Vital Signs Date Time Temp Pulse Resp B/P (MAP) Pulse Ox O2 Delivery O2 Flow Rate FiO2 03/29/19 08:29 69 105/67 03/29/19 07:08 97.5 16 03/28/19 06:35 Room Air 03/26/19 15:05 95 Current Medications Current Medications Medications (Trade) Dose Ordered Sig/Esther Route PRN Reason Start Time Stop Time Status Last Admin Dose Admin Acetaminophen (Tylenol Tab) 650 mg Q6HP PRN PO HEADACHE or DISCOMFORT 03/26/19 15:15 Al Hydrox/Mg Hydrox/Simethicone (Mylanta) 30 ml Q4HP PRN PO HEARTBURN/INDIGESTION 03/26/19 15:15 Aripiprazole (AbiLIFY) 5 mg DAILY PO 03/27/19 09:00 03/29/19 08:28 Buprenorphine/ Naloxone (Suboxone 2/ 0.5mg) 2 tab BID SL 03/27/19 09:00 03/29/19 08:29 Buprenorphine/ Naloxone (Suboxone 8/2mg) 1 tab BID SL 03/27/19 09:00 Cancel Citalopram Hydrobromide (CeleXA) 10 mg QHS PO 03/26/19 21:00 03/28/19 20:50 Home Med (Med Rec Complete!) ASDIRECTED XX 03/26/19 15:30 03/26/19 15:28 DC Magnesium Hydroxide (Milk Of Magnesia) 30 ml DAILYPRN PRN PO CONSTIPATION 03/26/19 15:15 Nicotine (Nicoderm Cq 21mg) 1 patch DAILY TD 03/27/19 09:00 Olanzapine (ZyPREXA ZYDIS) 10 mg Q4HP PRN PO AGITATION/ANXIETY 03/26/19 15:15 Propranolol HCl (Inderal) 10 mg TID PO 03/26/19 16:00 03/29/19 08:29 Trazodone HCl (Desyrel) 50 mg QHSP PRN PO INSOMNIA 03/26/19 15:15 03/27/19 10:19 DC 03/26/19 21:05 Trazodone HCl (Desyrel) 150 mg QHSP PRN PO INSOMNIA 03/27/19 21:00 03/28/19 20:54 Allergies Coded Allergies: No Known Allergies (Unverified , 08/29/18) ONEIDA RAMAN DO Mar 29, 2019 09:05
[2019-03-29] MEDS ORDERED: ARIP1TAB6 PO (12:43)
[2019-03-29] MEDS ORDERED: TRAZ150T90 PO (12:43)
[2019-03-29] MEDS ORDERED: PROP10TA56 PO (12:43)
[2019-03-29] MEDS ORDERED: CELE10TA PO (12:43)
[2019-03-29 15:50] VITALS: BP 100/56
[2019-03-29] MEDS: CitaloPRAM (CeleXA) 10 MG TABLET PO SCH (20:38)
[2019-03-29] MEDS: traZODone 50 MG TAB PO PRN (20:43)
[2019-03-30 06:33] VITALS: BP 96/54
[2019-03-30] MEDS: NICOTINE 21MG/24HR 1 EA TRANSDERMAL TD SCH (09:00)
[2019-03-30] MEDS: PROPRANOLOL 10 MG TAB PO SCH ×3 (09:00→20:04)
[2019-03-30] MEDS: BUPRENORPHINE/NALOXONE 2-0.5MG SUBLINGUAL TABLET(SUBOXONE) SL SCH ×2 (09:01→20:05)
[2019-03-30 16:33] VITALS: BP 99/63
--- NOTE | 2019-03-30 17:32 | MHIPN ---
DATE: 03/30/2019 VITAL SIGNS: Blood pressure 100/60, pulse 80, temperature 97.6. CHIEF COMPLAINT: Says feels good. SUBJECTIVE: He is seen for followup in the presence of staff. Says feels good. Moods are good. He is looking forward to going to [facility], on Monday (today is Monday). Says generally feels better. No cravings. He has been catching up with sleep. MENTAL STATUS EXAMINATION: Neat, cooperative. There is no agitation. No psychomotor retardation. He is coherent. Affect is broad, appears relaxed. No evidence of any thoughts of harming himself or anyone else, nor of any psychosis. Cognition is grossly intact. Judgment is improved, as is insight. ASSESSMENT: 1. Other specified depressive disorder. 2. Amphetamine use disorder. PLAN: Continue current care. He is clinically improved, awaiting going to [facility]. Meanwhile, continue with his present care and participation in activities in the unit.
[2019-03-30] MEDS: CitaloPRAM (CeleXA) 10 MG TABLET PO SCH (20:02)
[2019-03-30] MEDS: traZODone 50 MG TAB PO PRN (20:05)
[2019-03-31 06:27] VITALS: BP 109/65
[2019-03-31] MEDS: NICOTINE 21MG/24HR 1 EA TRANSDERMAL TD SCH (09:00)
[2019-03-31] MEDS: PROPRANOLOL 10 MG TAB PO SCH ×3 (09:00→21:00)
[2019-03-31] MEDS: BUPRENORPHINE/NALOXONE 2-0.5MG SUBLINGUAL TABLET(SUBOXONE) SL SCH ×2 (09:59→21:01)
[2019-03-31 16:52] VITALS: BP 106/61
[2019-03-31] MEDS: CitaloPRAM (CeleXA) 10 MG TABLET PO SCH (21:01)
[2019-03-31] MEDS: traZODone 50 MG TAB PO PRN (21:01)
[2019-04-01 06:31] VITALS: BP 100/58
[2019-04-01 07:46] VITALS: BP 100/58
[2019-04-01] MEDS: BUPRENORPHINE/NALOXONE 2-0.5MG SUBLINGUAL TABLET(SUBOXONE) SL SCH (07:46)
[2019-04-01] MEDS: PROPRANOLOL 10 MG TAB PO SCH (07:46)
[2019-04-01] MEDS: NICOTINE 21MG/24HR 1 EA TRANSDERMAL TD SCH (07:46)
--- NOTE | 2019-04-01 09:11 | MHDSPDOC ---
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 Per ED, pt endorsed giving all of his belongs even his cell phone away after his left him due to having thoughts of killing himself. Pt's patient care per ED confirmed to ED staff that pt gave all his belongings away prior to coming to the hospital. Per ED, pt tearful when seen. Pt seen in his room and states he's doing "ok" today. Endorses depression with thoughts of suicide prior admission due to his leaving him after he relapsed on methamphetamine IV. States his mood is slightly better today and denies thoughts of suicide. States he takes abilify outpatient that he feels is beneficial and would like to restart. Asked why pt no longer on celexa that he was last d/c on and found beneficial and stated he didn't know but would like to restart for depression as he finds it helpful. Takes suboxone 4/[address] Pemberton BID and asking to restart. Asking to be referred to rehab so he can back to working on his sobriety that he had been doing for 6-7months prior admission. Denies SI/HI, hallucinations, delusions. Feels safe here. CONSULTANTS INVOLVED: none TREATMENT AND PROGRESS ON THE UNIT : Pt was admitted to [facility], seen for psychiatric assessment and restarted on his outpatient medication abilify 5mg daily, celexa 10mg qhs, suboxone 4/1 bid. He was provided trazodone 50mg qhs prn insomnia. Pt found his medications beneficial and tolerated them well. He attended groups daily during his stay. His symptoms improved with treatment. On day of discharge he denied depression, anxiety, insomnia, SI/HI, hallucinations, delusions. He was discharged to [facility] for rehab.. He felt safe for discharge. DISCHARGE ASSESSMENT:Pt seen in his room and states he's feeling "good" and is looking forward to going to rehab today. Pt states that's great and he's looking forward to going and getting back into sobriety after relapse. Pt he's tolerating his medication and it's beneficial. He is attending groups and finding them beneficial. Denies depression, anxiety, insomnia, SI/HI, hallucinations, delusions. Feels safe to go to rehab today. MENTAL STATUS EXAMINATION ON DISCHARGE: General Appearance: clean, appears stated age, hospital scrubs/clothing Build: average Demeanor: cooperative Eye Contact: average Activity: average Behavior: cooperative, withdrawn Speech: clear, normal volume, reg/rate,rhythm,volume Mood: euthymic, full range Mood "good" Affect: full range, congruent Thought Process: logical/linear, less depressed, intact Thought Content (Delusions): none reported, denies SI, HI, AVH Thought Content (Other): none reported, appropriate Thought Content (Aggressive): none reported Perception (Hallucinations): none reported Perception (Other): none reported Cognition (Impairment of): none reported Cognition(Intelligence Est.): average Oriented: Awake, Alert, Oriented times three Insight: good Judgment: good Psychosis: Denies MEDICATIONS ON DISCHARGE: abilify 5mg daily celexa 10mg qhs suboxone 4/ bid PLAN/FOLLOWUP ARRANGEMENTS: D/c to [facility] for rehab. The amount of time spent in the coordination of care for this patient was approximately 30 minutes. Vital Signs/I&Os Vital Signs Date Time Temp Pulse Resp B/P (MAP) Pulse Ox O2 Delivery O2 Flow Rate FiO2 04/01/19 07:46 53 100/58 04/01/19 06:31 98.1 14 03/28/19 06:35 Room Air 03/26/19 15:05 95 Medications Scheduled Aripiprazole (Aripiprazole) 5 Mg Tablet, 5 MG PO DAILY for antidepressant augmentation, #10 Buprenorphine HCl/Naloxone HCl (Buprenorp-Nalox 4-1 mg Sl Film) 1 Each Film, 1 FILM SL BID, (Reported) Citalopram Hydrobromide (Celexa) 10 Mg Tablet, 10 MG PO QHS for mood, #10 Propranolol HCl (Propranolol HCl) 10 Mg Tablet, 10 MG PO TID for anxiety, #30 Trazodone HCl (Trazodone HCl) 150 Mg Tablet, 150 MG PO QHS for insomnia, #10 Scheduled PRN Ibuprofen (Ibuprofen) 800 Mg Tablet, 800 MG PO TID PRN for PAIN, (Reported) Allergies Coded Allergies: No Known Allergies (Unverified , 08/29/18) ONEIDA RAMAN DO Apr 01, 2019 9:11 am
== END 2019-04-01 08:42 | DRG 754 ==
LOC: M ED 09:40 → M ED INP 15:03 → M PSY 15:32
PROVIDERS: ADMIT Psychiatry & Neurology Psychiatry; ATTEND Psychiatry & Neurology Psychiatry
DX: F32.9 Major depressive disorder, single episode, unspecified (principal); F15.24 Other stimulant dependence with stimulant-induced mood disorder; F60.89 Other specific personality disorders; Z63.5 Disruption of family by separation and divorce; Z81.1 Family history of alcohol abuse and dependence; Z81.3 Family history of other psychoactive substance abuse and dependence; Z81.8 Family history of other mental and behavioral disorders; Z56.0 Unemployment, unspecified; Z79.899 Other long term (current) drug therapy; Z91.14 Patient's other noncompliance with medication regimen; R10.9 Unspecified abdominal pain; N40.0 Benign prostatic hyperplasia without lower urinary tract symptoms; Z86.19 Personal history of other infectious and parasitic diseases; K21.9 Gastro-esophageal reflux disease without esophagitis; F17.210 Nicotine dependence, cigarettes, uncomplicated; F11.21 Opioid dependence, in remission

== ENCOUNTER 2019-05-04 09:03 | Inpatient (IN) | payer MEDICAID, OTHER ==
[~2019-05-04] VITALS: Ht 165.1 cm; Wt 57.0 kg
[~2019-05-04 09:03] MED LIST changes: +BUPR1FIL6 SL; +CELE10TA PO; +IBUP1TAB7 PO; +QUET100T2 PO; -QUET1TAB8 PO; +TRAZ150T90 PO
[2019-05-04] MEDS ORDERED: ADACEL/BOOSTRIX VACCINE (DIPHTH/PERTUSS/ACELL/TETANUS)0.5ML SYR (90715) IM ONE (09:15)
[2019-05-04] MEDS ORDERED: NS 1,000 ML IV ONE ×2 (09:15→12:15)
[2019-05-04] MEDS ORDERED: LORazepam 2 MG/ML VIAL (J2060) IV STA (09:15)
[2019-05-04 09:34] LABS: BASO % 0.3 % (0.0-1.0); EOS % 0.4 % (0.0-3.0); HEMATOCRIT 42.4 % (42.0-52.0); HEMOGLOBIN 15.1 g/dl (13.5-17.5); LYMPH # 1.7 10^3/uL (1.5-5.0); LYMPH % 15.4 % (24.0-44.0); MEAN CORPUSCULAR HEMOGLOBIN 30.8 pg (27.0-33.0); MEAN CORPUSCULAR HGB CONC 35.6 g/dl (32.0-36.5); MEAN CORPUSCULAR VOLUME 86.4 fl (80.0-96.0); MONO # 0.9 10^3/uL (0.0-0.8); MONO % 7.7 % (0.0-5.0); NEUTROPHILS # 8.3 10^3/uL (1.5-8.5); NEUTROPHILS % 75.9 % (36.0-66.0); PLATELET COUNT, AUTOMATED 367 10^3/uL (150-450); RED BLOOD COUNT 4.91 10^6/uL (4.30-6.10)
[2019-05-04 10:18] LABS: ACETAMINOPHEN LEVEL < 2.0 UG/ML (10.0-30.0); ALBUMIN 4.4 GM/DL (3.2-5.2); ALT/SGPT 34 U/L (12-78); BILIRUBIN,DIRECT 0.3 MG/DL (0.0-0.2); BILIRUBIN,TOTAL 1.3 MG/DL (0.2-1.0); BLOOD UREA NITROGEN 15 MG/DL (7-18); CALCIUM LEVEL 9.1 MG/DL (8.5-10.1); CARBON DIOXIDE LEVEL 29 MEQ/L (21-32); CHLORIDE LEVEL 105 MEQ/L (98-107); CPK CREATINE PHOSPHOKINASE 439 U/L (39-308); CREATININE FOR GFR 1.02 MG/DL (0.70-1.30); ETHYL ALCOHOL (ETHANOL) < 0.003 % (0.000-0.010); GLOMERULAR FILTRATION RATE > 60.0 (>60); GLUCOSE, FASTING 91 MG/DL (70-100); POTASSIUM SERUM 3.6 MEQ/L (3.5-5.1); SALICYLATE LEVEL < 1.7 MG/DL (5.0-30.0); SODIUM LEVEL 141 MEQ/L (136-145); TOTAL PROTEIN 7.8 GM/DL (6.4-8.2)
[2019-05-04 11:17] LABS: AMPHETAMINES LEVEL URINE POSITIVE (NEGATIVE); BARBITURATES URINE NEGATIVE (NEGATIVE); BENZODIAZEPINES URINE NEGATIVE (NEGATIVE); CANNABINOIDS URINE NEGATIVE (NEGATIVE); COCAINE METABOLITE URINE NEGATIVE (NEGATIVE); METHADONE URINE NEGATIVE (NEGATIVE); OPIATES URINE NEGATIVE (NEGATIVE); PHENCYCLIDINE URINE NEGATIVE (NEGATIVE)
[2019-05-04 12:21] LABS: TROPONIN I < 0.02 NG/ML (< 0.10)
[2019-05-04] MEDS ORDERED: PRAZ1CAP PO (13:16)
[2019-05-04 14:29] LABS: CK-MB VALUE MASS 2.3 NG/ML (<3.6); CPK CREATINE PHOSPHOKINASE 306 U/L (39-308); MB/CK RELATIVE INDEX 0.75 (< OR =4); TROPONIN I < 0.02 NG/ML (< 0.10)
[2019-05-04] MEDS ORDERED: ARIP1TAB6 PO (15:30)
[2019-05-04] MEDS ORDERED: SUBO8MIS SL (15:30)
[2019-05-04] MEDS ORDERED: TRAZ1TAB14 PO (15:30)
[2019-05-04] MEDS ORDERED: QUET5TAB PO (15:34)
[2019-05-04] MEDS ORDERED: FLOM0.4C39 PO (15:34)
--- NOTE | 2019-05-04 17:52 | ECGEPIP ---
[facility] - ED Test Date: 2019-05-04 Pat Name: RIVERA CARROLL Department: Room: - Gender: Male Kit Assembler: loretta : 1970 Requested By: Dori Tran Order Number: [id number] Reading MD: Dori Tran Measurements Intervals [place] Rate: 89 P: 61 OK: 156 QRS: -23 QRSD: 104 T: 64 QT: 342 QTc: 416 Interpretive Statements SINUS RHYTHM WITH SINUS ARRHYTHMIA BORDERLINE LEFT AXIS DEVIATION NSTTW abnormalities INCREASED RATE 10/21/18 Electronically Signed on 05-04-2019 17:52:23 EST by Dori Tran
[2019-05-04] MEDS ORDERED: traZODone 50 MG TAB PO ONE (21:15)
[2019-05-04] MEDS ORDERED: TAMSULOSIN 0.4 MG CAP PO ONE (21:15)
[2019-05-04] MEDS ORDERED: QUEtiapine FUMARATE 50 MG TAB PO ONE (21:15)
[2019-05-04] MEDS ORDERED: PRAZOSIN 1 MG CAP PO ONE (21:15)
[2019-05-04] MEDS: BUPRENORPHINE/NALOXONE 8-2MG SUBLINGUAL TABLET(SUBOXONE) SL ONE ×2 (21:34→21:38)
[2019-05-05] MEDS ORDERED: ACETAMINOPHEN TAB 650MG DOSE (2X325MG) PO PRN (06:45)
[2019-05-05] MEDS ORDERED: MAALOX 30 ML SUSP *UDC PO PRN (06:45)
[2019-05-05] MEDS ORDERED: MOM 30ML SUSPENSION UDC PO PRN (06:45)
[2019-05-05] MEDS: BUPRENORPHINE/NALOXONE 8-2MG SUBLINGUAL TABLET(SUBOXONE) SL SCH ×2 (09:00→21:00)
[2019-05-05 10:02] VITALS: BP 120/75
[2019-05-05 16:07] VITALS: BP 114/64
--- NOTE | 2019-05-05 20:42 | HPE ---
DATE OF ADMISSION: 05/05/2019 He has had eight inpatient mental health hospitalizations in the last year alone. His history and physical is unchanged from that obtained by Dr. Aracelis Salazar on 03/25/2019. For the sake of brevity, he has a history of anxiety and depression, hepatitis C, polysubstance abuse, intravenous drug abuse, benign prostatic hypertrophy (BPH), gastroesophageal reflux disease (GERD) and renal stones. FAMILY HISTORY: Mother has chronic obstructive pulmonary disease (COPD), father heart disease. Brother and father with kidney stones. SOCIAL HISTORY: Smoker. History of intravenous drug abuse including heroin, ta and meth. Denies alcohol. MEDICATIONS: Per flow sheet. REVIEW OF SYSTEMS: No chest pain, shortness of breath, palpitations, or rectal bleeding. He apparently has a testicular lump in his left testicle, has been present, unchanged for years and he plans to discuss this with his primary care physician and expressed to us that he would rather has his primary physician examine and follow this. PHYSICAL EXAMINATION: VITAL SIGNS: Per flow sheet. HEENT: Unremarkable. LUNGS: Clear. HEART: Without murmur. ABDOMEN: Soft, no masses. No peripheral edema. NEUROLOGICAL EXAM: Nonfocal. Normal strength, reflexes, sensation and gait. IMPRESSION: 1. Benign prostatic hypertrophy (BPH). Continue with tamsulosin 0.4 mg daily. 2. Depression: Continue with psychiatric medications. 3. Testicular lump, chronic, probably benign, has been present for years. He wants this followed by his primary care provider, so I did not examine this. Hospitalist service is available for any medical problems that develop during his [facility] admission.
[2019-05-05] MEDS: PRAZOSIN 1 MG CAP PO SCH (21:00)
[2019-05-05] MEDS: TAMSULOSIN 0.4 MG CAP PO SCH (21:07)
[2019-05-05] MEDS: traZODone 50 MG TAB PO SCH (21:08)
[2019-05-05] MEDS: QUEtiapine FUMARATE 50 MG TAB PO SCH (21:08)
[2019-05-06 06:31] VITALS: BP 112/65
[2019-05-06] MEDS: BUPRENORPHINE/NALOXONE 8-2MG SUBLINGUAL TABLET(SUBOXONE) SL SCH ×2 (09:00→20:35)
--- NOTE | 2019-05-06 10:27 | MHIPNPDOC ---
[facility] Progress Note Progress Note Inpatient Progress Note Hunter Leone MRN: N/A Date of : N/A Date of Service: 05/06/2019 History of Present Illness The patient, a well-known 48-year-old man, presents depressed and suicidal after using multiple substances. Interval History Narrative: The patient is met with, he is lying in bed and engages little. Affective: The patient reports some low mood, but not much else. Psychotic: Denies any. Anxiety: Denies any symptoms. Eating and sleeping behaviors: Generally normal, sleeps during the day. Group Attendance: Infrequent. Medication Side effects: See ROS below Behavioral problems/significant events overnight: None reported. Staff Report: The patient is generally minimally involved. Review Of Systems General: Denies fever or appetite changes Cardiovascular: Denies Chest pain or palpations GI: Denies Nausea, vomiting, or bowel changes Respiratory: Denies shortness of breath or cough Neuro: Denies dizziness, tremors Derm: Denies any rashes or pruritus : Denies any dysuria or urinary problems MSK: Denies any muscle tightness or stiffness HEENT: Denies any vision changes or headaches Psychotherapy None on this visit. Vital Signs Reviewed. Mental Status Examination General: Well dressed with good hygiene Speech: Spontaneous and fluid Thought processes: Linear and logical MSK: Smooth and coordinated gait, no signs of tremors or involuntary orofacial movements Thought content: Future orientated Abstract reasoning, and computation: Intact Description of associations: Intact Description of abnormal or psychotic thoughts: Denies any suicidal or homicidal ideation. Denies any auditory or visual hallucinations. Does not appear to be responding to internal stimuli. Does not appear to be endorsing any bizarre or paranoid ideation. Judgment: Limited. Insight: Limited. Orientation: Alert and orientated 3 Cognition: Grossly normal Recent and remote memory: Intact Attention span and concentration: Intact Fund of knowledge: Adequate Mood: "okay" Affect: Moderately dysthymic with a constricted range. Diagnoses Unspecified depressive disorder. Polysubstance use disorder. Assessment and Plan Unspecified depressive disorder: Continue medications as below. Polysubstance use disorder: Rehab referral in process. Disposition Patient will likely be discharged bed to bed to rehab once referral is in process. Time Spent 15 minutes Monday Vital Signs Vital Signs Date Time Temp Pulse Resp B/P (MAP) Pulse Ox O2 Delivery O2 Flow Rate FiO2 05/06/19 06:31 97.7 63 18 112/65 (81) Room Air 05/05/19 10:02 99 Current Medications Current Medications Medications (Trade) Dose Ordered Sig/Esther Route PRN Reason Start Time Stop Time Status Last Admin Dose Admin Acetaminophen (Tylenol Tab) 650 mg Q6HP PRN PO HEADACHE or DISCOMFORT 05/05/19 06:45 Al Hydrox/Mg Hydrox/Simethicone (Mylanta) 30 ml Q4HP PRN PO HEARTBURN/INDIGESTION 05/05/19 06:45 Aripiprazole (AbiLIFY) 5 mg BID PO 05/05/19 09:00 05/06/19 10:05 Buprenorphine/ Naloxone (Suboxone 8/2mg) 1 tab BID SL 05/05/19 09:00 Home Med (Med Rec Complete!) ASDIRECTED XX 05/04/19 15:45 05/04/19 15:39 DC Lorazepam (Ativan) 2 mg STAT STAT IV 05/04/19 09:15 05/04/19 09:16 DC 05/04/19 09:23 Magnesium Hydroxide (Milk Of Magnesia) 30 ml DAILYPRN PRN PO CONSTIPATION 05/05/19 06:45 Prazosin HCl (Minipress) 1 mg QHS PO 05/05/19 21:00 Quetiapine Fumarate (SEROquel) 50 mg QHS PO 05/05/19 21:00 05/05/19 21:08 Tamsulosin HCl (Flomax) 0.4 mg QHS PO 05/05/19 21:00 05/05/19 21:07 Trazodone HCl (Desyrel) 300 mg QHS PO 05/05/19 21:00 05/05/19 21:08 Allergies Coded Allergies: No Known Allergies (Unverified , 08/29/18) KIKI JACQUES DO May 06, 2019 10:27
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
[2019-05-06 16:19] VITALS: BP 96/58
[2019-05-06] MEDS: TAMSULOSIN 0.4 MG CAP PO SCH (20:32)
[2019-05-06] MEDS: traZODone 50 MG TAB PO SCH (20:34)
[2019-05-06] MEDS: QUEtiapine FUMARATE 50 MG TAB PO SCH (20:34)
[2019-05-06] MEDS: PRAZOSIN 1 MG CAP PO SCH (20:34)
[2019-05-07 06:31] VITALS: BP 92/55
[2019-05-07] MEDS: BUPRENORPHINE/NALOXONE 8-2MG SUBLINGUAL TABLET(SUBOXONE) SL SCH ×2 (08:57→21:00)
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
[2019-05-07] MEDS ORDERED: QUET5TAB PO (14:49)
[2019-05-07] MEDS ORDERED: TRAZ-252 PO (14:49)
[2019-05-07] MEDS ORDERED: FLOM0.4C39 PO (14:49)
[2019-05-07] MEDS ORDERED: MINI1CAP PO (14:49)
[2019-05-07] MEDS ORDERED: ABIL1TAB11 PO (14:49)
[2019-05-07] MEDS ORDERED: BUPR1SUB5 SL (14:54)
[2019-05-07 16:03] VITALS: BP 96/56
[2019-05-07] MEDS: QUEtiapine FUMARATE 50 MG TAB PO SCH (20:24)
[2019-05-07 20:26] VITALS: BP 116/67
[2019-05-07] MEDS: traZODone 50 MG TAB PO SCH (20:26)
[2019-05-07] MEDS: PRAZOSIN 1 MG CAP PO SCH (20:26)
[2019-05-07] MEDS: TAMSULOSIN 0.4 MG CAP PO SCH (21:00)
[2019-05-08 06:28] VITALS: BP 117/69
[2019-05-08] MEDS: BUPRENORPHINE/NALOXONE 8-2MG SUBLINGUAL TABLET(SUBOXONE) SL SCH (08:32)
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
== END 2019-05-08 09:50 | disposition home or self-care (01) | DRG 754 ==
LOC: M ED 09:03 → M ED INP 05-05 06:33 → M PSY 05-05 08:51
PROVIDERS: ADMIT Psychiatry & Neurology Psychiatry; ATTEND Psychiatry & Neurology Psychiatry
DX: F32.9 Major depressive disorder, single episode, unspecified (principal); F15.14 Other stimulant abuse with stimulant-induced mood disorder; N20.0 Calculus of kidney; F41.9 Anxiety disorder, unspecified; B19.20 Unspecified viral hepatitis C without hepatic coma; F19.10 Other psychoactive substance abuse, uncomplicated; N40.0 Benign prostatic hyperplasia without lower urinary tract symptoms; K21.9 Gastro-esophageal reflux disease without esophagitis; F17.200 Nicotine dependence, unspecified, uncomplicated; N44.2 Benign cyst of testis; Z63.0 Problems in relationship with spouse or partner; Z91.5 Personal history of self-harm; Z79.899 Other long term (current) drug therapy

== ENCOUNTER 2019-07-09 11:20 | Inpatient (IN) | payer MEDICAID, OTHER ==
[~2019-07-09] VITALS: Ht 165.1 cm; Wt 58.3 kg
[~2019-07-09 11:20] MED LIST changes: +BUPR1SUB5 SL; +MINI1CAP PO; +PRAZ1CAP PO; +SUBO8MIS SL; +TRAZ1TAB14 PO
[2019-07-09 12:26] LABS: AMPHETAMINES LEVEL URINE NEGATIVE (NEGATIVE); BARBITURATES URINE NEGATIVE (NEGATIVE); BASO % 0.2 % (0.0-1.0); BENZODIAZEPINES URINE NEGATIVE (NEGATIVE); CANNABINOIDS URINE NEGATIVE (NEGATIVE); COCAINE METABOLITE URINE NEGATIVE (NEGATIVE); EOS # 0.1 10^3/uL (0.0-0.5); EOS % 0.5 % (0.0-3.0); HEMATOCRIT 42.1 % (42.0-52.0); HEMOGLOBIN 14.7 g/dl (13.5-17.5); LYMPH # 1.5 10^3/uL (1.5-5.0); LYMPH % 11.4 % (24.0-44.0); MEAN CORPUSCULAR HEMOGLOBIN 30.5 pg (27.0-33.0); MEAN CORPUSCULAR HGB CONC 34.9 g/dl (32.0-36.5); MEAN CORPUSCULAR VOLUME 87.3 fl (80.0-96.0); METHADONE URINE NEGATIVE (NEGATIVE); MONO # 0.5 10^3/uL (0.0-0.8); MONO % 3.7 % (0.0-5.0); NEUTROPHILS % 83.7 % (36.0-66.0); OPIATES URINE NEGATIVE (NEGATIVE); PHENCYCLIDINE URINE NEGATIVE (NEGATIVE); PLATELET COUNT, AUTOMATED 427 10^3/uL (150-450); RED BLOOD COUNT 4.82 10^6/uL (4.30-6.10); WHITE BLOOD COUNT 13.1 10^3/uL (4.0-10.0)
[2019-07-09 13:03] LABS: ACETAMINOPHEN LEVEL < 2.0 UG/ML (10.0-30.0); ALBUMIN 3.4 GM/DL (3.2-5.2); ALT/SGPT 19 U/L (12-78); BILIRUBIN,DIRECT < 0.1 MG/DL (0.0-0.2); BILIRUBIN,TOTAL 0.5 MG/DL (0.2-1.0); BLOOD UREA NITROGEN 10 MG/DL (7-18); CALCIUM LEVEL 8.9 MG/DL (8.5-10.1); CARBON DIOXIDE LEVEL 28 MEQ/L (21-32); CHLORIDE LEVEL 105 MEQ/L (98-107); CPK CREATINE PHOSPHOKINASE 77 U/L (39-308); CREATININE FOR GFR 0.89 MG/DL (0.70-1.30); ETHYL ALCOHOL (ETHANOL) < 0.003 % (0.000-0.010); GLOMERULAR FILTRATION RATE > 60.0 (>60); GLUCOSE, FASTING 85 MG/DL (70-100); POTASSIUM SERUM 3.9 MEQ/L (3.5-5.1); SALICYLATE LEVEL < 1.7 MG/DL (5.0-30.0); SODIUM LEVEL 139 MEQ/L (136-145)
[2019-07-09] MEDS ORDERED: MOM 30ML SUSPENSION UDC PO PRN (19:15)
[2019-07-09] MEDS ORDERED: traZODone 50 MG TAB PO PRN (19:15)
[2019-07-09] MEDS ORDERED: MAALOX 30 ML SUSP *UDC PO PRN (19:15)
[2019-07-09] MEDS ORDERED: IBUPROFEN 400 MG TAB PO PRN (19:15)
[2019-07-09 21:33] VITALS: BP 142/94
[2019-07-10 06:51] VITALS: BP 133/86
--- NOTE | 2019-07-10 08:56 | ECGEPIP ---
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
[2019-07-10 15:48] VITALS: BP 132/93
[2019-07-10] MEDS: OLANZapine ORAL DISINTEGRATING TAB 5MG PO PRN ×2 (17:10→23:36)
[2019-07-10] MEDS ORDERED: traZODone 100 MG TAB PO PRN (18:00)
--- NOTE | 2019-07-10 18:04 | HPEPDOC ---
[facility] Medical History & Physical Date of Admission July 09, 2019 Date of Service: July 10, 2019 Attending Physician: Margarita Baker MD History and Physical HISTORY OF PRESENT ILLNESS: Patient is a 49-year-old male with past medical history of methamphetamine use, hypo-pressure, hepatitis C infection (treated) who presented to [facility] emergency room after having suicide attempt. As per notes and the patient d irectly he stated that he wanted to kill himself because he is going through a divorce and his children are currently not speaking to him. He attempted to kill himself by shooting up 3 bags of heroin. He has a history of methamphetamine abuse as well. He states the last time he used IV drugs was 90 days ago prior to this event. He denies nausea, vomiting, tremoring, chest pain, shortness of breath in the emergency room but admitted to dizziness over the past several days and over the past several hours feeling as though he was going to pass out if he walks too quickly. The patient admits to feeling depressed, having hopelessness. . The patient took the heroin at around 4 AM and later woke up at 10 AM which she states he was surprised he woke up. He later came to the hospital to receive medical care. He had told emergency room staff that he reported suicidal ideation with any plan that we'll "work next time" as, "I be overdosed it obviously doesn't work ". He denied self injury, auditory and visual hallucinations or homicidal ideations. Sleep has been erratic. The patient is prescribed several medications for his psychiatric illnesses and opiates addiction; however, he admits to not taking any of them. REVIEW OF SYSTEMS: CONSTITUTIONAL: Denies unexplained weight gain or weight loss, loss of appetite, fever, night sweats EYES: Denies eye drainage, eye pain, visual changes, dry/irritated eye EARS, NOSE, MOUTH, THROAT: Denies difficulty hearing, ringing in ears, mouth sores, loose teeth, sore throat, facial numbness or pain NECK: Denies swollen glands CARDIOVASCULAR: Denies irregular heartbeat, racing heart, chest pains, swelling of feet or legs, pain in legs with walking RESPIRATORY: Denies shortness of breath, night sweats, wheezing, sputum production, oxygen at home, coughing up blood, cough lasting > 1 month GASTROINTESTINAL: Denies abdominal pain, constipation, bloody stool, diarrhea, heartburn, nausea, vomiting GENITOURINARY: Denies painful urination, bloody urine, frequent urination, urgency, leaking urine, impotence MUSCULOSKELETAL: Denies joint pain, muscle pain, leg swelling INTEGUMENTARY: Denies rash, itching, new skin lesion, change in existing skin lesion, hair loss or increase, breast changes. NEUROLOGICAL: Denies headaches, difficulty walking, numbness or tingling PAST MEDICAL HISTORY: 1. Illicit drug use (opiates, methamphetamines) 2. Tobacco use 3. History of thrombophlebitis versus DVT in the left arm 11/03/2018 4. Bipolar disorder 5. PTSD 6. Anxiety 7. Insomnia 8. Bipolar disorder PAST SURGICAL HISTORY: 1. Appendectomy FAMILY HISTORY: Father: CAD, [place]. at 57 years old Mother: COPD. at 54 years old SOCIAL HISTORY: Half pack per day smoker for the past 30 years. He smokes only cigarettes. He denies alcohol use. He shoots IV methamphetamine and heroin. Last known drug use he states this route was 90 days ago prior to this incident. He lives alone. His primary care provider is no local [facility]. He is a full code. ALLERGIES: Please see below. HOME MEDICATIONS: Please see below. PHYSICAL EXAMINATION: CONSTITUTIONAL: No acute distress, resting comfortably, AAO x 3 EYES: PERRLA, EOM intact HENT, MOUTH: Normocephalic, atraumatic, moist mucous membranes, NECK: SUPPLE, no JVD, no lymphadenopathy, no carotid bruit CV: Regular rate and rhythm, S1S2 normal, no murmurs/rubs/gallops RESPIRATORY: Clear to auscultation bilaterally, no rales/rhonchi/wheezes GI: BS positive in 4 quadrants, soft, nontender, nondistended, no rebound or guarding, no organomegaly : Deferred MUSCULOSKELETAL: Normal ROM. No cyanosis, clubbing, swelling, joint deformity, extremity edema INTEGUMENTARY: Track boyle/scarring on bilateral upper extremities, Intact, no rashes, no erythema NEUROLOGIC: Cranial Nerves II-XII are intact, no focal deficits PSYCHIATRIC: Mood and affect are normal LABORATORY DATA: Please see below IMAGING: No new imaging. ASSESSMENT: Patient is a 49 y/o M admitted for unspecified depressive disorder, suicide attempt with ideation. PLAN: 1. Unspecified depressive disorder. Plan per psychiatry team. 2. Suicide attempt with continued suicidal ideation. Plan per psychiatry team. 3. PTSD. Plan per psychiatry team. 4. Bipolar disorder/anxiety. Plan per psychiatry team. 5. Hypertension. Started on low dose ACEi. Would recommend continuing on discharge. 6. Urinary incontinence. Noncompliance with home medication. 7. Opiate/methamphetamine use. Does not take buprenorphine, noncompliant. If he desires, recommend close follow up center he is already established with . 8. Tobacco use. Recommend nicotine patch if to remain here. Smoking cessation counselling provided at bedside. DISPOSITION: I have made recommendations above. Currently the patient is stable and not requiring much from our service. At this time will sign off on patient. If we are needed again, please feel free to call at any time. Vital Signs Vital Signs Date Time Temp Pulse Resp B/P (MAP) Pulse Ox O2 Delivery O2 Flow Rate FiO2 07/10/19 15:48 98.2 84 18 132/93 (106) 07/10/19 08:42 Room Air 07/09/19 21:19 99 Home Medications No Active Prescriptions or Reported Meds Allergies Coded Allergies: No Known Allergies (Unverified , 08/29/18) A-FIB/CHADSVASC A-FIB History Current/History of A-Fib/PAF?: No Current PO Anticoag Therapy: No Age/Risk Factor Scoring CHADSVASC: CHADSVASC Response (Comments) Value Age Risk Factor Age < 65 years old 0 Gender Risk Factor Male 0 Hx of CHF No 0 Hx of HTN No 0 Hx of Stroke/TIA/or VTE No 0 Hx of Diabetes No 0 Hx of Vascular Disease No 0 Total 0 Treatment Treatment ordered: NONE Margarita Baker MD July 10, 2019 18:04
[2019-07-10 20:37] VITALS: BP 132/93
[2019-07-10] MEDS: lisinopriL 5 MG TAB PO SCH (20:37)
[2019-07-11 06:11] VITALS: BP 138/89
[2019-07-11] MEDS: lisinopriL 5 MG TAB PO SCH (08:41)
--- NOTE | 2019-07-11 09:33 | MHDSPDOC ---
[facility] Discharge Summary Discharge Summary DATE OF ADMISSION: July 09, 2019 at 19:03 DATE OF DISCHARGE: 07/11/19 Discharge Hunter Leone MRN: N/A Date of : N/A Date of Service: 07/11/2019 Diagnoses Unspecified depressive disorder Substance use versus adjustment Opioid use disorder, unspecified Stimulant use disorder, unspecified Tobacco use disorder, mild copy diagnosis copy History of Present Illness The patient is a well-known 49-year-old man with the history of substance use presents after reporting that he had signed his divorce paperwork and reported that he had become increasingly depressed. He reported that this depression got worse and that he had attempted to overdose on heroin with negative urine tox screen for heroin he had positive amphetamines. The patient was admitted at abundance of caution When the patient was met with, he stated that he was feeling better and that he needed some time away from his stressors and that his depression has gone away. He reports he has not been taking any medication or attending to any outpatient follow up since his last discharge more unit in May. He reports no other changes in his symptoms or major psychosocial changes other than the mentioned. Consultants Involved Hospitalist/PCP screening Treatment and Progress On The Unit The patient was admitted to the inpatient mental health unit. After discussion, he elected to not be restarted on any medications as he was not interested in mental health treatment reporting that he only "need some time away". His suicidal thoughts did not materialize on her unit and he had no behavioral problems. He had a normal mental status exam and presented how he had normally done multiple times, primarily with staff suspicion that he was malingering for housing. He quickly asked for discharge shortly after presenting. His admission was generally uneventful. Discharge Assessment 49-year-old man with likely history of multiple substance problems presents in a very similar fashion. He is generally understands mental health care and likely is using our unit as intermediate housing. The patient at the time of discharge did not meet criteria for involuntary admission/extension due to having a normal mental status exam, fair insight into the situation, They are engaged in the discharge process, as well as being friendly and amenable in behavioral control and havent been engaging in any observed concerning behavior or ideation recently. They decline voluntary extension/admission at this time and must be discharged in good barry, as Im unable to make a case for holding the patient against their will. They may have historical risk factors of admissions and other interactions with psychiatry however, those are not modifiable from a clinical perspective. The patient will need to be discharged in good barry. Change fair insight to baseline insight Mental Status Examination General: Well dressed with good hygiene Speech: Spontaneous and fluid Thought processes: Linear and logical MSK: Smooth and coordinated gait, no signs of tremors or involuntary orofacial movements Thought content: Future orientated Abstract reasoning, and computation: Intact Description of associations: Intact Description of abnormal or psychotic thoughts: Denies any suicidal or homicidal ideation. Denies any auditory or visual hallucinations. Does not appear to be responding to internal stimuli. Does not appear to be endorsing any bizarre or paranoid ideation. Judgment: Chronically limited. Insight: Chronically limited. Orientation: Alert and orientated 3 Cognition: Grossly normal Recent and remote memory: Intact Attention span and concentration: Intact Fund of knowledge: Adequate Mood: "okay" Affect: Euthymic with a full range Follow Up The social work team worked during the predischarge meeting in order to evaluate for further issues of lethality address them fully before discharge. They worked on safety planning with the patient's family members in order to ensure that the patient will have a safe and effective discharge. Time Spent The amount of time spent in the coordination of care for this patient was approximately 45 minutes. Vital Signs/I&Os Vital Signs Date Time Temp Pulse Resp B/P (MAP) Pulse Ox O2 Delivery O2 Flow Rate FiO2 07/11/19 06:11 98.1 86 14 138/89 (105) Room Air 07/09/19 21:19 99 Medications Scheduled Lisinopril (Lisinopril) 5 Mg Tablet, 5 MG PO DAILY for htn for 7 Days, #7 Allergies Coded Allergies: No Known Allergies (Unverified , 08/29/18) KIKI JACQUES DO July 11, 2019 09:33
[2019-07-11] MEDS ORDERED: LISI-542 PO (09:43)
== END 2019-07-11 10:40 | disposition home or self-care (01) | DRG 754 ==
LOC: M ED 11:20 → M ED INP 19:03 → M PSY 21:24
PROVIDERS: ADMIT Psychiatry & Neurology Psychiatry; ATTEND Psychiatry & Neurology Addiction Medicine
DX: F32.9 Major depressive disorder, single episode, unspecified (principal); F11.14 Opioid abuse with opioid-induced mood disorder; F15.14 Other stimulant abuse with stimulant-induced mood disorder; Z81.8 Family history of other mental and behavioral disorders; F43.21 Adjustment disorder with depressed mood; F17.210 Nicotine dependence, cigarettes, uncomplicated; Z63.5 Disruption of family by separation and divorce; Z79.899 Other long term (current) drug therapy; Z76.5 Malingerer [conscious simulation]

== ENCOUNTER 2019-10-07 09:21 | Emergency (ER) | payer MEDICAID ==
[~2019-10-07 09:21] MED LIST changes: +LISI-542 PO; +PANT40TA29 PO; -PANT40TA3 PO
[2019-11-24 03:46] LABS: HEMATOCRIT 45.9 % (42.0-52.0); HEMOGLOBIN 15.3 g/dl (13.5-17.5); MEAN CORPUSCULAR HEMOGLOBIN 30.2 pg (27.0-33.0); MEAN CORPUSCULAR HGB CONC 33.3 g/dl (32.0-36.5); MEAN CORPUSCULAR VOLUME 90.5 fl (80.0-96.0); PLATELET COUNT, AUTOMATED 380 10^3/uL (150-450); RED BLOOD COUNT 5.07 10^6/uL (4.30-6.10); WHITE BLOOD COUNT 7.3 10^3/uL (4.0-10.0)
[2019-12-16 01:20] LABS: ACETAMINOPHEN LEVEL < 2.0 UG/ML (10.0-30.0); ALBUMIN 4.1 GM/DL (3.2-5.2); ALT/SGPT 20 U/L (12-78); AMPHETAMINES LEVEL URINE POSITIVE (NEGATIVE); BARBITURATES URINE NEGATIVE (NEGATIVE); BENZODIAZEPINES URINE NEGATIVE (NEGATIVE); BILIRUBIN,DIRECT < 0.1 MG/DL (0.0-0.2); BILIRUBIN,TOTAL 0.6 MG/DL (0.2-1.0); BLOOD UREA NITROGEN 9 MG/DL (7-18); CALCIUM LEVEL 9.8 MG/DL (8.5-10.1); CANNABINOIDS URINE NEGATIVE (NEGATIVE); CARBON DIOXIDE LEVEL 31 MEQ/L (21-32); CHLORIDE LEVEL 105 MEQ/L (98-107); COCAINE METABOLITE URINE NEGATIVE (NEGATIVE); CREATININE FOR GFR 1.05 MG/DL (0.70-1.30); ETHYL ALCOHOL (ETHANOL) < 0.003 % (0.000-0.010); GLOMERULAR FILTRATION RATE > 60.0 (>60); GLUCOSE, FASTING 85 MG/DL (70-100); METHADONE URINE NEGATIVE (NEGATIVE); OPIATES URINE POSITIVE (NEGATIVE); PHENCYCLIDINE URINE NEGATIVE (NEGATIVE); POTASSIUM SERUM 4.8 MEQ/L (3.5-5.1); SALICYLATE LEVEL < 1.7 MG/DL (5.0-30.0); SODIUM LEVEL 139 MEQ/L (136-145); THYROID STIMULATING HORMONE 0.379 uIU/ML (0.358-3.740); TOTAL PROTEIN 7.7 GM/DL (6.4-8.2)
== END 2019-10-07 12:10 | disposition home or self-care (01) ==
LOC: M ED 09:21
DX: F11.10 Opioid abuse, uncomplicated (principal); F15.10 Other stimulant abuse, uncomplicated; F31.9 Bipolar disorder, unspecified; F17.210 Nicotine dependence, cigarettes, uncomplicated
CPT/HCPCS: 36415; 80048; 80076; 80307; 84443; 85027; 99284; G0480

== ENCOUNTER 2019-10-21 08:25 | Inpatient (IN) | payer MEDICAID ==
[2019-10-21] MEDS ORDERED: OLANZapine ORAL DISINTEGRATING TAB 5MG ONE (17:21)
[2019-10-22] MEDS ORDERED: OLANZapine ORAL DISINTEGRATING TAB 5MG ONE (09:01)
[2019-10-22] MEDS ORDERED: MAALOX 30 ML SUSP *UDC PO PRN (15:00)
[2019-10-22] MEDS ORDERED: traZODone 50 MG TAB PO PRN (15:00)
[2019-10-22] MEDS ORDERED: OLANZapine ORAL DISINTEGRATING TAB 5MG PO PRN (15:00)
[2019-10-22] MEDS ORDERED: ACETAMINOPHEN TAB 650MG DOSE (2X325MG) PO PRN (15:00)
[2019-10-22] MEDS ORDERED: MOM 30ML SUSPENSION UDC PO PRN (15:00)
[2019-10-23 06:29] VITALS: BP 129/68
--- NOTE | 2019-10-23 08:39 | MHDSPDOC ---
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 His suicidal thoughts rapidly resolved when he was admitted, he was treated with primary supported treatment. Patient did well and become euthymic and engaged without any inner dimensions. He had no major behavioral problems. DISCHARGE ASSESSMENT[improved] Patient will be discharged with no medications, back to [facility], likely substance- induced. Sobriety is likely a gannon part of his treatment as discussed with him. Legal status considerations: The patient at the time of discharge did not meet criteria for involuntary admission/extension due to having a [normal] mental status exam, [fair] insight into the situation, They are engaged in the discharge process, as well as being friendly and amenable in behavioral control and havent been engaging in any observed concerning behavior or ideation recently. They decline voluntary extension/admission at this time and must be discharged in good barry, as Im unable to make a case for holding the patient against their will. They may have historical risk factors of admissions and other interactions with psychiatry however, those are not modifiable from a clinical perspective. The patient will need to be discharged in good barry. MENTAL STATUS EXAMINATION ON DISCHARGE: [General: Well dressed with good hygiene Speech: Spontaneous and fluid Thought processes: Linear and logical Thought content: Future orientated Abstract reasoning, and computation: Intact Description of associations: Intact Description of abnormal or psychotic thoughts:Denies any suicidal or homicidal ideation. Denies any auditory or visual hallucinations. Does not appear to be responding to internal stimuli. Does not appear to be endorsing any bizarre or paranoid ideation. Judgment: fair Insight: fair Orientation: Alert and orientated 3 Recent and remote memory: Intact Attention span and concentration: Intact Fund of knowledge: Adequate Mood: "okay" Affect: Euthymic with a full range] PLAN/FOLLOWUP ARRANGEMENTS: Follow up appointments made (PCP and MH in 5 days of D/C date) and safety plan completed. Safety Planning aspects completed prior to discharge [RN reviewed crisis hotline information and other aspects to empower patient to access care in interim before next appointment.] The amount of time spent in the coordination of care for this patient was approximately 30 minutes. Vital Signs/I&Os Vital Signs Date Time Temp Pulse Resp B/P (MAP) Pulse Ox O2 Delivery O2 Flow Rate FiO2 10/23/19 06:29 98.0 74 12 129/68 (88) Room Air Laboratory Data Labs 24H Laboratory Tests 2 10/22/19 12:10: Urine Color STRAW, Urine Appearance CLEAR, Urine pH 7.0, Urine Specific [place] 1.003, Urine Protein NEGATIVE, Urine Glucose (UA) NEGATIVE, Urine Ketones NEGATIVE, Urine Blood NEGATIVE, Urine Nitrite NEGATIVE, Urine Bilirubin NEGATIVE, Urine Urobilinogen 0.2, Urine Leukocyte Esterase NEGATIVE, Urine WBC (Auto) 0, Urine RBC (Auto) 0, Urine Hyaline Casts (Auto) 0, Urine Bacteria (Auto) NEGATIVE, Urine Squamous Epithelial Cells 0, Urine Mucus (Auto) SMALL, Urine Sperm (Auto) Medications Scheduled Lisinopril (Lisinopril) 5 Mg Tablet, 5 MG PO DAILY for htn for 7 Days, #7 Allergies Coded Allergies: No Known Allergies (Unverified , 08/29/18) KIKI JACQUES DO Oct 23, 2019 08:39
--- NOTE | 2019-10-23 08:39 | MHHPEPDOC ---
[facility] History & Physical History and Physical DATE OF ADMISSION: Oct 21, 2019 at 14:15 Subjective HPI: Hunter presents today for concerns regarding his reported recent ta use leaving him temporary suicidal. He is currently going through some marriage issues with his . He is currently going to [facility] for mental health and substance abuse treatment. He reports the main substances he abused were heroin and ta. He previously could stay awake for nights at a time when on drugs. He previously was on methamphetamine but quit taking it a while ago. MEDICATIONS: He is currently taking Abilify 5 mg daily. He denies any medication allergies. MEDICAL HISTORY: He denies any suicide attempts but admits to suicidal ideation. He denies any hallucinations, trauma, or abuse. FAMILY HISTORY: He denies any history of mental health in his family. SOCIAL HISTORY - LIVING SITUATION: He is currently in the process of divorce with his and is living separately from her. SOCIAL HISTORY - SUBSTANCE USE: He doesnt drink alcohol. SOCIAL HISTORY - SMOKING: He smokes about a half pack of cigarettes a day. SURGICAL HISTORY: He previously had an appendix surgery. Objective Appearance: Appears to be stated age. Well groomed. Well nourished. Behavior: Pleasant. Engaged. Cooperative with good eye contact. Affect: Appropriate to context. Full range. Mood: Euthymic. Generally good. Appropriately reactive. Speech: Spontaneous and Fluid. Normal volume. Normal rate. Motor: No gross motor abnormalities. Cognition: Alert, Attentive, and Oriented to person, place, time. Memory: No gross abnormalities of short or middle or intermediate school principal memory noted during interview. No formal testing. Thought Form: Linear and goal directed. Thought Content: No thoughts of self harm. No evidence of aggressive or homicidal ideation. No evidence of suicidal ideation. No evidence of delusions. Perception: No perceptual abnormalities noted. Judgement: Intact as evidenced by decision making in the recent past. Insight: Good insight into symptoms and treatment options. Assessment Z63.0 Problems in relationship with spouse or partner F19.94 Other psychoactive substance use, unspecified with psychoactive substance-induced mood disorder F11.14 Opioid abuse with opioid-induced mood disorder 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, uncomplicated F33.9 Major depressive disorder, recurrent, unspecified F43.20 Adjustment disorder, unspecified Plan Resume patients home medications are doing well at this time, likely substance- induced. We will observe overnight and discharge as he has history of frequent readmissions and can arrange for more effective treatments not connected to mental health at this time. Risk of suicide is 2, substance abuse, estimated length of stay is 1-2 days. Patient will generally do well unit, however his substance abuse problems are more likely salient to his issues. Vital Signs Vital Signs Date Time Temp Pulse Resp B/P (MAP) Pulse Ox O2 Delivery O2 Flow Rate FiO2 10/23/19 06:29 98.0 74 12 129/68 (88) Room Air Laboratory Data 24H Labs Laboratory Tests 2 10/22/19 12:10: Urine Color STRAW, Urine Appearance CLEAR, Urine pH 7.0, Urine Specific Birney 1.003, Urine Protein NEGATIVE, Urine Glucose (UA) NEGATIVE, Urine Ketones NEGATIVE, Urine Blood NEGATIVE, Urine Nitrite NEGATIVE, Urine Bilirubin NEGATIVE, Urine Urobilinogen 0.2, Urine Leukocyte Esterase NEGATIVE, Urine WBC (Auto) 0, Urine RBC (Auto) 0, Urine Hyaline Casts (Auto) 0, Urine Bacteria (Auto) NEGATIVE, Urine Squamous Epithelial Cells 0, Urine Mucus (Auto) SMALL, Urine Sperm (Auto) Medications Scheduled Lisinopril (Lisinopril) 5 Mg Tablet, 5 MG PO DAILY for htn Allergies Coded Allergies: No Known Allergies (Unverified , 08/29/18) KIKI JACQUES DO Oct 23, 2019 08:39
--- NOTE | 2019-11-20 15:32 | ECGEPIP ---
SINUS RHYTHM NORMAL ECG SEE SCANNED DOWNTIME REPORT MTDD
[2019-12-05 11:49] LABS: BASO % 0.5 % (0.0-1.0); EOS # 0.1 10^3/uL (0.0-0.5); EOS % 0.8 % (0.0-3.0); HEMATOCRIT 43.9 % (42.0-52.0); HEMOGLOBIN 14.7 g/dl (13.5-17.5); LYMPH # 1.4 10^3/uL (1.5-5.0); LYMPH % 16.6 % (24.0-44.0); MEAN CORPUSCULAR HEMOGLOBIN 29.7 pg (27.0-33.0); MEAN CORPUSCULAR HGB CONC 33.5 g/dl (32.0-36.5); MEAN CORPUSCULAR VOLUME 88.7 fl (80.0-96.0); MONO # 0.6 10^3/uL (0.0-0.8); MONO % 6.9 % (0.0-5.0); NEUTROPHILS # 6.2 10^3/uL (1.5-8.5); NEUTROPHILS % 74.8 % (36.0-66.0); PLATELET COUNT, AUTOMATED 446 10^3/uL (150-450); RED BLOOD COUNT 4.95 10^6/uL (4.30-6.10); WHITE BLOOD COUNT 8.3 10^3/uL (4.0-10.0)
[2020-01-12 12:23] LABS: ACETAMINOPHEN LEVEL < 2.0 UG/ML (10.0-30.0); ALBUMIN 3.6 GM/DL (3.2-5.2); ALT/SGPT 18 U/L (12-78); AMPHETAMINES LEVEL URINE NEGATIVE (NEGATIVE); BARBITURATES URINE NEGATIVE (NEGATIVE); BENZODIAZEPINES URINE NEGATIVE (NEGATIVE); BILIRUBIN,TOTAL 0.3 MG/DL (0.2-1.0); BLOOD UREA NITROGEN 14 MG/DL (7-18); CALCIUM LEVEL 9.2 MG/DL (8.5-10.1); CANNABINOIDS URINE NEGATIVE (NEGATIVE); CARBON DIOXIDE LEVEL 28 MEQ/L (21-32); CHLORIDE LEVEL 107 MEQ/L (98-107); COCAINE METABOLITE URINE NEGATIVE (NEGATIVE); CPK CREATINE PHOSPHOKINASE 94 U/L (39-308); CREATININE FOR GFR 0.99 MG/DL (0.70-1.30); ETHYL ALCOHOL (ETHANOL) < 0.003 % (0.000-0.010); GLOMERULAR FILTRATION RATE > 60.0 (>60); GLUCOSE, FASTING 84 MG/DL (70-100); METHADONE URINE NEGATIVE (NEGATIVE); OPIATES URINE NEGATIVE (NEGATIVE); PHENCYCLIDINE URINE NEGATIVE (NEGATIVE); SALICYLATE LEVEL 2.5 MG/DL (5.0-30.0); SODIUM LEVEL 139 MEQ/L (136-145); TOTAL PROTEIN 7.2 GM/DL (6.4-8.2)
== END 2019-10-23 11:43 | disposition home or self-care (01) | DRG 773 ==
LOC: M ED 08:25 → M PSY 14:15
PROVIDERS: ADMIT Psychiatry & Neurology Psychiatry; ATTEND Psychiatry & Neurology Addiction Medicine
DX: F19.94 Other psychoactive substance use, unspecified with psychoactive substance-induced mood disorder (principal); F15.151 Other stimulant abuse with stimulant-induced psychotic disorder with hallucinations; F43.24 Adjustment disorder with disturbance of conduct; F11.94 Opioid use, unspecified with opioid-induced mood disorder

== ENCOUNTER 2019-11-11 16:51 | Inpatient (IN) | payer MEDICAID ==
[~2019-11-11] VITALS: Ht 165.1 cm; Wt 57.4 kg
[2019-11-11] MEDS ORDERED: ABIL1TAB11 PO ×2 (17:05→21:14)
[2019-11-11 17:26] LABS: HEMATOCRIT 43.7 % (42.0-52.0); HEMOGLOBIN 14.8 g/dl (13.5-17.5); MEAN CORPUSCULAR HGB CONC 33.9 g/dl (32.0-36.5); MEAN CORPUSCULAR VOLUME 88.6 fl (80.0-96.0); PLATELET COUNT, AUTOMATED 418 10^3/uL (150-450); RED BLOOD COUNT 4.93 10^6/uL (4.30-6.10); WHITE BLOOD COUNT 11.3 10^3/uL (4.0-10.0)
[2019-11-11 17:47] LABS: AMPHETAMINES LEVEL URINE NEGATIVE (NEGATIVE); BARBITURATES URINE NEGATIVE (NEGATIVE); BENZODIAZEPINES URINE NEGATIVE (NEGATIVE); CANNABINOIDS URINE NEGATIVE (NEGATIVE); COCAINE METABOLITE URINE NEGATIVE (NEGATIVE); METHADONE URINE NEGATIVE (NEGATIVE); OPIATES URINE NEGATIVE (NEGATIVE); PHENCYCLIDINE URINE NEGATIVE (NEGATIVE)
[2019-11-11 17:59] LABS: ALBUMIN 3.7 GM/DL (3.2-5.2); ALT/SGPT 92 U/L (12-78); BILIRUBIN,DIRECT 0.1 MG/DL (0.0-0.2); BILIRUBIN,TOTAL 0.6 MG/DL (0.2-1.0); BLOOD UREA NITROGEN 11 MG/DL (7-18); CARBON DIOXIDE LEVEL 30 MEQ/L (21-32); CHLORIDE LEVEL 105 MEQ/L (98-107); CREATININE FOR GFR 0.95 MG/DL (0.70-1.30); ETHYL ALCOHOL (ETHANOL) < 0.003 % (0.000-0.010); GLOMERULAR FILTRATION RATE > 60.0 (>60); GLUCOSE, FASTING 72 MG/DL (70-100); POTASSIUM SERUM 4.3 MEQ/L (3.5-5.1); SALICYLATE LEVEL 1.8 MG/DL (5.0-30.0); SODIUM LEVEL 140 MEQ/L (136-145); TOTAL PROTEIN 7.3 GM/DL (6.4-8.2)
[2019-11-11 18:00] LABS: ACETAMINOPHEN LEVEL < 2.0 UG/ML (10.0-30.0)
[2019-11-11] MEDS ORDERED: LORazepam 1 MG TAB PO STA (18:00)
[2019-11-12] MEDS ORDERED: ACETAMINOPHEN TAB 650MG DOSE (2X325MG) PO PRN (16:45)
[2019-11-12] MEDS ORDERED: traZODone 50 MG TAB PO PRN (16:45)
[2019-11-12] MEDS ORDERED: MOM 30ML SUSPENSION UDC PO PRN (16:45)
[2019-11-12] MEDS ORDERED: MAALOX 30 ML SUSP *UDC PO PRN (16:45)
[2019-11-12 21:04] VITALS: BP 136/81
[2019-11-12] MEDS: OLANZapine ORAL DISINTEGRATING TAB 5MG PO PRN (21:54)
[2019-11-13 06:25] VITALS: BP 124/80
[2019-11-13] MEDS: NICOTINE 21MG/24HR 1 EA TRANSDERMAL TD SCH (09:00)
--- NOTE | 2019-11-13 13:33 | MHHPEPDOC ---
General Date Of Admission: Nov 12, 2019 Legal Status: 9.39 Chief Complaint Patient is a 49 year old , Unemployed Male who self presented to the Emergency Department for reports of Depression and Suicidal Ideation to cut his wrists with a steak knife. He states, "My neighbors were shooting me up with dope." (Winter) His last use was the day before yesterday and he was using up to 2 grams per day. He states that his suicidal ideation "came from out of nowhere." According to his last admission he presented with similar complaints. He reports in the interview that he is going through withdrawal. Patient is currently in the process of getting . Reports that he has been trying to get to rehab with the help of his Welder Tack Jessica History of Present Illness HISTORY OF THE PRESENT ILLNESS: Patient is a 49 -year-old , male, who was recently discharged from this unit. He states that his depression has been ongoing but that his suicidal ideation "came out of the nowhere." Patient has a long history of psychiatric admissions. He has had a total of 18 hospitalizations. He has had 5 admissions this year so far. In 2018 he had 6 admissions and in 2017 he had 7 admissions. While he stated that on this occasion that his "suicidality came from out of nowhere" more than half of his psychiatric admissions were due to suicidality. On this occasion he states that he is withdrawing and is now reporting mild depression with no suicidal ideation. Psychiatric Review of Systems Depression (2 or more weeks): depressed mood, difficulty concentrating, suicidal thoughts, other (poor sleep) Britney (4 or more days of): denies Psychosis: denies PTSD: denies Anxiety: denies Past Psychiatric History Previous Psychiatric Diagnosis: Unspecified Depressive Disorder, Adjustment Disorder, he reports that at one time he had a diagnosis of Bipolar disorder, he didn't like taking mood stabilizer. I reinforced with the patient that if he had been taken Methamphetamine with his medications that he may present with Bipolar like symptoms. Previous Psychiatric Admissions: 18 previous psychiatric hospitalizations Suicide Attempts: 1 suicide attempt to shoot himself in the face with black powder gun, reports that the gun didn't go off Psychiatric Follow-up: [facility] Psychiatric medications: Abilify 5 mg Past Medical History Medical Problems reports no medical issues at this time Surgical History: Appendectomy No known drug allergies Head Injury: No Seizures: No Hospitalizations: Yes Surgeries: Yes Family Medical/Psychiatric HX Medical Problems Father of Myocardial infarction Mother of COPD Maternal Uncle with "Bipolar / Schizophrenia Nephew completed suicide in 2017 Psychiatric Disorders: Yes Addiction: No Suicide Attemps/Completions: Yes Addiction History nicotine, methamphetamines, heroin Social History Childhood: Born in [place] to both parents, has 2 brothers and a sister, he is the third in the order. Reports no development or issues Abuse/Trauma: Denies Current Living Situation: Lives alone Education: Only went to the 7th grade. 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 Not currently employed Social Support: He initially reported none, but he has a brother who is supportive about his desire to go to [facility] for Rehab Legal: History of attempted burglary, [place]ailed in [place] residential : None Marital: , is filing for divorce. Mental Status Examination General Appearance: unkempt, disheveled, ds/not appear stated age, hospital scubs/clothing Build: thin Demeanor: guarded Eye Contact: avoidant Activity: average Behavior: cooperative Speech: clear, spontaneous, normal volume, reg/rate,rhythm,volume Mood: depressed, anxious Affect: constricted, flat Thought Process: logical/linear Thought Content (Delusions): none reported Thought Content (Other): none reported Thought Content (Aggressive): none reported Perception (Hallucinations): none reported Perception (Other): none reported Cognition (Impairment of): none reported Cognition(Intelligence Est.): average Oriented: Awake, Alert, Oriented times three Insight: fair Judgment: Fair Psychosis: Denies Diagnoses Unspecified Depressive Disorder 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 He is well-known to this facility, with a [facility] He returns to the hospital for complaints of depression and suicidal ideation. It appears that patient is withdrawing from his Winter use and reports that he has never had this happen but according to this many hospitalization, he frequently presents with suicidal ideation. Patient will be observed for withdrawal symptoms and complications. We will medicate for his withdrawal symptoms. Patient is reporting a decrease in his depression and decrease in suicidal ideation. He is requesting to be discharged tomorrow. We will address the possibility of discharge tomorrow, meanwhile he will be afforded both cognitive behavioral therapy, group therapy and medication management. continue with home medications clonidine 0.1 mg twice daily and Amantadine 100 mg twice daily for substance wi thdrawal symptoms May consider anti-depressant but this appears strongly to be a Substance induced mood disorder Patient has a long history of non-compliance with outpatient mental health Patient is also planning to leave [facility], citing that he is attempting to go to Rehab at [place], [place] Initial Treatment Plan 1. Patient was admitted on a [9.39] status. 2. Complete history was obtained. 3. With patients permission, family will be contacted and database will be expanded. 4. Patients medication regimen will be reviewed and changed accordingly. 5. Patient will be provided with protected environment. 6. Patient will be treated with individual, group, and milieu therapies. 7. Patient will receive supportive psych-education. 8. Discharge planning will commence immediately. 9. Outpatient follow-up treatment will be strongly recommended. 10. The initial treatment plan will focus initially on: * Depression. * Risk for suicide. ESTIMATED LENGTH OF STAY: 3-5 DAYS. TIME SPENT COUNSELING AND COORDINATING INITIAL CARE: 40 minutes. Vital Signs Vital Signs Date Time Temp Pulse Resp B/P (MAP) Pulse Ox O2 Delivery O2 Flow Rate FiO2 11/13/19 06:25 98.2 82 14 124/80 (95) 99 Room Air Medications Scheduled Aripiprazole (Abilify) 5 Mg Tablet, 5 MG PO QHS, (Reported) Allergies Coded Allergies: No Known Allergies (Unverified , 08/29/18) MARIANA BHAKTA NP Nov 13, 2019 13:33
--- NOTE | 2019-11-13 14:23 | HPEPDOC ---
[facility] Medical History & Physical Date of Admission Nov 13, 2019 Date of Service: Nov 13, 2019 History and Physical Hospitalist Attending Physician History and Physical Examination dictated pls call hypertype for stat woods overseer if needed emergently Assessment and Plan: 49 y/o admitted to [facility] for depression and suicidal ideation: Suicidal Ideation Depression Left LE wound no signs of cellulitis Hepatitis C Polysubstance abuse IV heroin, meth, ta Active tobacco abuse -tobacco cessation counselling, nicotine patch, topical bacitracin to LLE woundx 5days, no need for oral antibiotics, outpt fu w ID or GI in [place] for Hep C. Hospitalist signing off. pls reconsult for acute medical issues. Vital Signs Vital Signs Date Time Temp Pulse Resp B/P (MAP) Pulse Ox O2 Delivery O2 Flow Rate FiO2 11/13/19 06:25 98.2 82 14 124/80 (95) 99 Room Air Home Medications Scheduled Aripiprazole (Abilify) 5 Mg Tablet, 5 MG PO QHS Allergies Coded Allergies: No Known Allergies (Unverified , 08/29/18) A-FIB/CHADSVASC A-FIB History Current/History of A-Fib/PAF?: No Current PO Anticoag Therapy: No Age/Risk Factor Scoring CHADSVASC: CHADSVASC Response (Comments) Value Age Risk Factor Age < 65 years old 0 Gender Risk Factor Male 0 Hx of CHF No 0 Hx of HTN No 0 Hx of Stroke/TIA/or VTE No 0 Hx of Diabetes No 0 Hx of Vascular Disease No 0 Total 0 Treatment Treatment ordered: NONE Reason Anticoagulant not given: Not indicated/[id number] WOODY AG MD Nov 13, 2019 14:23
[2019-11-13] MEDS: AMANTADINE 100MG TABLET PO SCH ×2 (14:37→21:00)
[2019-11-13] MEDS: cloNIDine 0.1 MG TAB PO SCH ×2 (16:15→21:00)
[2019-11-13 17:48] VITALS: BP 119/72
[2019-11-13] MEDS: BACITRACIN OINTMENT 30GM TUBE TOP SCH (21:00)
--- NOTE | 2019-11-13 21:24 | HPE ---
DATE OF ADMISSION: 11/12/2019 CHIEF COMPLAINT: Suicidal ideation, severe depression. REASON FOR HISTORY AND PHYSICAL: Medical evaluation. HISTORY OF PRESENT ILLNESS: A 49-year-old male with a history of depression, suicidal ideation, hepatitis C, polysubstance abuse with Winter, methamphetamine, heroin, active tobacco use, BPH, reflux, and kidney stones, admitted to the inpatient mental health unit due to severe depression with suicidal ideation. Patient otherwise has no new complaints. Denies fever or chills, weight gain, weight loss, changes in appetite, nausea, vomiting, diarrhea, abdominal pain. No jaundice, polyphagia, polydipsia, weight gain, weight loss. Denies any dysuria, urgency, frequency, shortness of breath, chest pain, pressure, or tightness, sore throat, ear discharge, tinnitus, vertigo, headaches, upper or lower extremity weakness or paresthesias. Refused evaluation of his hepatitis C and said that he will followup with his water quality control engineer and infectious disease specialist as outpatient. MEDICAL HISTORY: 1. Depression, suicidal ideation. 2. Hepatitis C. 3. Polysubstance abuse. 4. Intravenous (IV) drug use. 5. BPH. 6. Reflux. 7. Kidney stones. HOSPITAL MEDICATIONS: - clonidine 0.1 three times a day - nicotine patch 21 daily - amantadine 100 twice a day - Abilify 5 mg every night - trazodone 50 every night as needed - Zyprexa 5 every 6 as needed for anxiety - Tylenol 650 every 6 as needed - milk of magnesia 30 mL daily as needed - Mylanta 30 mL every 4 as needed SOCIAL HISTORY: Active tobacco abuse, less than half a pack per day for years. Previously used Winter, methamphetamine, heroin. Had been on Suboxone. 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 FAMILY HISTORY: Mother with chronic obstructive pulmonary disease (COPD). Father with coronary artery disease (CAD). Kidney stones in both parents. REVIEW OF SYSTEMS: Per history of present illness (HPI). A 12-point system otherwise negative. PHYSICAL EXAMINATION: Temperature 98.2, pulse 82, respiratory rate 14, blood pressure 124/80, 99% on room air. GENERAL: Awake, alert, oriented to person, place, and time, answering questions appropriately. Anicteric sclerae, no jaundice. No icterus. No jugular venous distention (JVD) or thyromegaly. Moist mucous membranes. LUNGS: Clear to auscultation. No wheezing, rales, or rhonchi. HEART: S1, S2, sinus rhythm. ABDOMEN: Soft, nontender, nondistended. Positive bowel sounds. EXTREMITIES: No cyanosis, clubbing, or pitting edema. Left medial leg has a 0.5 cm open ulcer. No signs of erythema, purulence, or serous drainage. ASSESSMENT AND PLAN: This is a 49-year-old male with a history of depression, suicidal ideation, admitted to the inpatient mental health unit. 1. Hepatitis C. 2. Left lower extremity superficial wound with no signs of cellulitis. 3. Depression with suicidal ideation. 4. Polysubstance abuse. 5. IV drug use. Previously used heroin, methamphetamine, Winter. 6. BPH. 7. Reflux. 8. Kidney stones. 9. Tobacco abuse, active. PLAN: Supportive care. Bacitracin topically, left lower extremity wound. No signs of cellulitis. Does not require oral antibiotics. Defer to psychiatrist for management of patient's depression and suicidal ideation. Nicotine patch given, 21 mg daily. Outpatient followup with his water quality control engineer or infectious disease specialist regarding hepatitis C. Refused workup during the hospital stay. Hospitalist will sign off. Re-consult for acute medical issues. [id number]
[2019-11-14 06:36] VITALS: BP 123/79
[2019-11-14 07:34] VITALS: BP 123/79
[2019-11-14] MEDS: AMANTADINE 100MG TABLET PO SCH (07:34)
[2019-11-14] MEDS: OLANZapine ORAL DISINTEGRATING TAB 5MG PO PRN (07:34)
[2019-11-14] MEDS: cloNIDine 0.1 MG TAB PO SCH (07:34)
[2019-11-14] MEDS: NICOTINE 21MG/24HR 1 EA TRANSDERMAL TD SCH (07:34)
[2019-11-14] MEDS: BACITRACIN OINTMENT 30GM TUBE TOP SCH (07:35)
[2019-11-14] MEDS ORDERED: ABIL1TAB11 PO (10:27)
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
--- NOTE | 2019-11-18 11:56 | ECGEPIP ---
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
== END 2019-11-14 11:35 | disposition home or self-care (01) | DRG 754 ==
LOC: M ED 16:51 → M ED INP 11-12 16:33 → M PSY 11-12 21:00
PROVIDERS: ADMIT Psychiatry & Neurology Psychiatry; ATTEND Psychiatry & Neurology Psychiatry
DX: F32.9 Major depressive disorder, single episode, unspecified (principal); R45.851 Suicidal ideations; F17.200 Nicotine dependence, unspecified, uncomplicated; F11.90 Opioid use, unspecified, uncomplicated; B18.2 Chronic viral hepatitis C; N40.0 Benign prostatic hyperplasia without lower urinary tract symptoms; K21.9 Gastro-esophageal reflux disease without esophagitis; N20.0 Calculus of kidney

== ENCOUNTER 2019-12-01 19:53 | Inpatient (IN) | payer MEDICAID ==
[~2019-12-01] VITALS: Ht 165.1 cm; Wt 59.1 kg
[2019-12-01] MEDS ORDERED: TRAZ-189 PO (20:10)
[2019-12-01] MEDS ORDERED: QUET200T2 PO (20:10)
[2019-12-01 21:07] LABS: HEMATOCRIT 42.3 % (42.0-52.0); HEMOGLOBIN 14.2 g/dl (13.5-17.5); MEAN CORPUSCULAR HEMOGLOBIN 28.9 pg (27.0-33.0); MEAN CORPUSCULAR HGB CONC 33.6 g/dl (32.0-36.5); MEAN CORPUSCULAR VOLUME 86.2 fl (80.0-96.0); PLATELET COUNT, AUTOMATED 539 10^3/uL (150-450); RED BLOOD COUNT 4.91 10^6/uL (4.30-6.10); WHITE BLOOD COUNT 9.3 10^3/uL (4.0-10.0)
[2019-12-01 21:34] LABS: ALBUMIN 3.7 GM/DL (3.2-5.2); ALT/SGPT 128 U/L (12-78); BILIRUBIN,DIRECT 0.2 MG/DL (0.0-0.2); BILIRUBIN,TOTAL 0.6 MG/DL (0.2-1.0); BLOOD UREA NITROGEN 7 MG/DL (7-18); CALCIUM LEVEL 9.2 MG/DL (8.5-10.1); CARBON DIOXIDE LEVEL 30 MEQ/L (21-32); CHLORIDE LEVEL 104 MEQ/L (98-107); CREATININE FOR GFR 1.03 MG/DL (0.70-1.30); ETHYL ALCOHOL (ETHANOL) < 0.003 % (0.000-0.010); GLOMERULAR FILTRATION RATE > 60.0 (>60); GLUCOSE, FASTING 99 MG/DL (70-100); POTASSIUM SERUM 3.4 MEQ/L (3.5-5.1); SALICYLATE LEVEL < 1.7 MG/DL (5.0-30.0); SODIUM LEVEL 139 MEQ/L (136-145); TOTAL PROTEIN 7.6 GM/DL (6.4-8.2)
[2019-12-01 21:35] LABS: AMPHETAMINES LEVEL URINE NEGATIVE (NEGATIVE); BARBITURATES URINE NEGATIVE (NEGATIVE); BENZODIAZEPINES URINE NEGATIVE (NEGATIVE); CANNABINOIDS URINE NEGATIVE (NEGATIVE); COCAINE METABOLITE URINE NEGATIVE (NEGATIVE); METHADONE URINE NEGATIVE (NEGATIVE); OPIATES URINE NEGATIVE (NEGATIVE); PHENCYCLIDINE URINE NEGATIVE (NEGATIVE)
[2019-12-01] MEDS ORDERED: ABIL1TAB11 PO (22:07)
[2019-12-01] MEDS ORDERED: FOLI1TAB11 PO (22:07)
[2019-12-01] MEDS ORDERED: PANT-23 PO (22:07)
[2019-12-01] MEDS ORDERED: med rec comment (22:08)
[2019-12-01] MEDS ORDERED: LORazepam 2 MG TAB PO ONE (23:00)
--- NOTE | 2019-12-02 05:40 | ECGEPIP ---
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
[2019-12-02] MEDS ORDERED: LORazepam 2 MG TAB PO PRN (18:00)
[2019-12-02] MEDS ORDERED: IBUPROFEN 400 MG TAB PO PRN (18:00)
[2019-12-02] MEDS ORDERED: MOM 30ML SUSPENSION UDC PO PRN (18:00)
[2019-12-02] MEDS ORDERED: MAALOX 30 ML SUSP *UDC PO PRN (18:00)
[2019-12-02] MEDS: FOLIC ACID 1 MG TAB PO SCH (19:00)
[2019-12-02] MEDS: THIAMINE 100 MG TAB PO SCH (19:00)
[2019-12-02] MEDS: MULTIVITAMINS/MINERALS THERAP 1 TAB PO SCH (19:00)
[2019-12-02 20:36] VITALS: BP 120/79
[2019-12-02 20:39] VITALS: BP 120/79
[2019-12-02] MEDS: traZODone 50 MG TAB PO PRN (20:52)
[2019-12-03 06:40] VITALS: BP 144/80
[2019-12-03] MEDS: FOLIC ACID 1 MG TAB PO SCH (09:18)
[2019-12-03] MEDS: THIAMINE 100 MG TAB PO SCH (09:18)
[2019-12-03] MEDS: MULTIVITAMINS/MINERALS THERAP 1 TAB PO SCH (09:18)
[2019-12-03] MEDS: cloNIDine 0.1 MG TAB PO SCH ×2 (10:27→21:37)
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
[2019-12-03] MEDS: AMANTADINE 100MG TABLET PO SCH (12:11)
[2019-12-03 16:16] VITALS: BP 110/66
[2019-12-03] MEDS: traZODone 50 MG TAB PO PRN (21:32)
[2019-12-04 06:29] VITALS: BP 111/76
--- NOTE | 2019-12-04 08:10 | HPE ---
DATE OF ADMISSION: 12/02/2019 This is a hospitalist-generated history and physical. HISTORY OF PRESENT ILLNESS: He has frequent inpatient mental health admissions, was just in two weeks ago. His history and physical is unchanged from that of 11/13/2019. PAST MEDICAL HISTORY: He has a history of hepatitis C, polysubstance drug abuse, smoking, left lower extremity wounds, depression, suicidal ideation, SURGICAL HISTORY: Appendectomy. FAMILY HISTORY: Father of [place] at 57. Mother at 54 of COPD. SOCIAL HISTORY: Half pack per day smoker. Uses intravenous (IV) heroin and methamphetamines. REVIEW OF SYSTEMS: No chest pain, shortness of breath, cough, wheezing, fevers, chills, night sweats. PHYSICAL EXAM: Vital signs: Per flow sheet. General: Alert, conversant, no distress. Lungs are clear. Heart regular rate and rhythm. Abdomen soft and nontender. No peripheral edema. Good pulses. Normal strength in the arms and legs. IMPRESSION: The patient is medically stable, has no ongoing medical problems that would require hospitalist intervention. If something arises, please feel free to contact the hospitalist group. STAN
[2019-12-04 08:39] VITALS: BP 110/76
[2019-12-04] MEDS: cloNIDine 0.1 MG TAB PO SCH (08:39)
[2019-12-04] MEDS: FOLIC ACID 1 MG TAB PO SCH (08:39)
[2019-12-04] MEDS: AMANTADINE 100MG TABLET PO SCH (08:39)
[2019-12-04] MEDS: MULTIVITAMINS/MINERALS THERAP 1 TAB PO SCH (08:39)
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
== END 2019-12-04 15:50 | disposition home or self-care (01) | DRG 755 ==
LOC: M ED 19:53 → M ED INP 12-02 17:58 → M PSY 12-02 20:07
PROVIDERS: ADMIT Psychiatry & Neurology Psychiatry; ATTEND Psychiatry & Neurology Psychiatry
DX: F43.25 Adjustment disorder with mixed disturbance of emotions and conduct (principal); F15.10 Other stimulant abuse, uncomplicated; F17.200 Nicotine dependence, unspecified, uncomplicated; Z91.5 Personal history of self-harm; Z79.899 Other long term (current) drug therapy; Z63.8 Other specified problems related to primary support group

== ENCOUNTER 2019-12-11 13:39 | Inpatient (IN) | payer MEDICAID, OTHER ==
[~2019-12-11] VITALS: Ht 165.1 cm; Wt 55.3 kg
[~2019-12-11 13:39] MED LIST changes: +PANT-23 PO; +med rec comment
[2019-12-11] MEDS ORDERED: TRAZ-189 PO (13:46)
[2019-12-11 15:03] LABS: HEMATOCRIT 41.8 % (42.0-52.0); HEMOGLOBIN 14.1 g/dl (13.5-17.5); MEAN CORPUSCULAR HEMOGLOBIN 29.3 pg (27.0-33.0); MEAN CORPUSCULAR HGB CONC 33.7 g/dl (32.0-36.5); MEAN CORPUSCULAR VOLUME 86.7 fl (80.0-96.0); PLATELET COUNT, AUTOMATED 428 10^3/uL (150-450); RED BLOOD COUNT 4.82 10^6/uL (4.30-6.10)
[2019-12-11 15:38] LABS: ACETAMINOPHEN LEVEL < 2.0 UG/ML (10.0-30.0); ALBUMIN 3.6 GM/DL (3.2-5.2); ALT/SGPT 154 U/L (12-78); BILIRUBIN,DIRECT 0.3 MG/DL (0.0-0.2); BILIRUBIN,TOTAL 1.2 MG/DL (0.2-1.0); BLOOD UREA NITROGEN 13 MG/DL (7-18); CARBON DIOXIDE LEVEL 29 MEQ/L (21-32); CHLORIDE LEVEL 107 MEQ/L (98-107); CREATININE FOR GFR 0.92 MG/DL (0.70-1.30); ETHYL ALCOHOL (ETHANOL) < 0.003 % (0.000-0.010); GLOMERULAR FILTRATION RATE > 60.0 (>60); GLUCOSE, FASTING 109 MG/DL (70-100); POTASSIUM SERUM 4.2 MEQ/L (3.5-5.1); SALICYLATE LEVEL < 1.7 MG/DL (5.0-30.0); SODIUM LEVEL 141 MEQ/L (136-145); THYROID STIMULATING HORMONE 0.804 uIU/ML (0.358-3.740); TOTAL PROTEIN 7.1 GM/DL (6.4-8.2)
[2019-12-11 17:14] LABS: AMPHETAMINES LEVEL URINE POSITIVE (NEGATIVE); BARBITURATES URINE NEGATIVE (NEGATIVE); BENZODIAZEPINES URINE NEGATIVE (NEGATIVE); CANNABINOIDS URINE NEGATIVE (NEGATIVE); COCAINE METABOLITE URINE NEGATIVE (NEGATIVE); METHADONE URINE NEGATIVE (NEGATIVE); OPIATES URINE NEGATIVE (NEGATIVE); PHENCYCLIDINE URINE NEGATIVE (NEGATIVE)
[2019-12-11] MEDS ORDERED: TAB-TAB2 PO (19:44)
[2019-12-11] MEDS ORDERED: QUET200T2 PO (19:44)
[2019-12-11] MEDS ORDERED: MAALOX 30 ML SUSP *UDC PO PRN (19:45)
[2019-12-11] MEDS ORDERED: ACETAMINOPHEN TAB 650MG DOSE (2X325MG) PO PRN (19:45)
[2019-12-11] MEDS ORDERED: MOM 30ML SUSPENSION UDC PO PRN (19:45)
[2019-12-11 21:38] VITALS: BP 106/75
[2019-12-11] MEDS: QUEtiapine FUMARATE 200 MG TAB PO SCH (21:46)
[2019-12-11] MEDS: traZODone 50 MG TAB PO PRN (21:46)
[2019-12-12 06:37] VITALS: BP 140/79
[2019-12-12] MEDS: MULTIVITAMINS/MINERALS THERAP 1 TAB PO SCH (09:00)
--- NOTE | 2019-12-12 10:04 | MHHPEPDOC ---
[facility] History & Physical History and Physical DATE OF ADMISSION: Dec 11, 2019 at 19:36 HPI: The patient was admitted to the inpatient mental health unit after reportedly presenting distorted with increased drug use recently. The patient has a notable history for presenting in similar fashions multiple times presenting after using various hallucinogens and stimulants. Patient presented with primarily psychotic symptoms and paranoia as is expected. However, the patient he had reported the State that he wanted to slit open their throats. The patient was bizarre and paranoid thinking the FBI was out to get him. On exam, he did not meet with me as he was asleep and generally was not amenable to being awakened. He was sleeping comfortably otherwise. Primarily has a history of significant substance abuse, including stimulants and hallucinogens. MEDICATIONS: He does take some antipsychotics. However, it's questionable whether these are consistent. MEDICAL HISTORY: On past medical history, he has a history of multiple inpatient admissions last in late November for suicidal thinking in the context of drug use. He has had suicidal gestures, but no clear overall suicide attempts in the past. Medical history is not significant at this time. Other than reported secondary problems from significant drug use. FAMILY HISTORY: Family history is unchanged from previous assessment. SOCIAL HISTORY - LIVING SITUATION: Social history patient is currently on public assistance. He has significant conflict with ex-. Objective Behavior: Sleeping comfortably without issues. Grunted when asked about meeting. Mood: Reportedly quite irritable from nursing staff. 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 Treatment priorities are 1 alter thoughts 2 risks for aggression Estimated length of stay is 1-4 days as he May just take some time to resolve we may attempt to get him into rehab as his presentations have become more continuous and necessitate further treatment. Vital Signs Vital Signs Date Time Temp Pulse Resp B/P (MAP) Pulse Ox O2 Delivery O2 Flow Rate FiO2 12/12/19 06:37 98.9 68 16 140/79 (99) 12/11/19 21:38 98 Room Air Laboratory Data 24H Labs Laboratory Tests 2 12/11/19 14:29: Urine Opiates Screen NEGATIVE, Urine Methadone Screen NEGATIVE, Urine Barbiturates Screen NEGATIVE, Urine Phencyclidine Screen NEGATIVE, Urine Amphetamines Screen POSITIVEH, Urine Benzodiazepines Screen NEGATIVE, Urine Coca ine Metabolite Screen NEGATIVE, Urine Cannabinoids Screen NEGATIVE 12/11/19 14:48: Nucleated Red Blood Cells % (auto) 0.0, Anion Gap 5L, Glomerular Filtration Rate > 60.0, Calcium Level 9.0, Total Bilirubin 1.2H, Direct Bilirubin 0.3H, Aspartate Amino Transf (AST/SGOT) 112H, Alanine Aminotransferase (ALT/SGPT) 154H, Alkaline Phosphatase 106, Total Protein 7.1, Albumin 3.6, Albumin/Globulin Ratio 1.0, Thyroid Stimulating Hormone (TSH) 0.804, Salicylates Level < 1.7L, Acetaminophen Level < 2.0L, Ethyl Alcohol Level < 0.003 CBC/BMP Laboratory Tests 12/11/19 14:48 Medications Scheduled Aripiprazole (Abilify) 5 Mg Tablet, 5 MG PO QHS, (Reported) Multivitamin (Tab-A-Antwan) 1 Each Tablet, 1 TAB PO DAILY, (Reported) Trazodone HCl (Trazodone HCl) 100 Mg Tablet, 100 MG PO QHS, (Reported) Scheduled PRN Quetiapine Fumarate (Quetiapine Fumarate) 200 Mg Tablet, 200 MG PO QHS PRN for SLEEP, (Reported) Allergies Coded Allergies: No Known Allergies (Unverified , 08/29/18) KIKI JACQUES DO Dec 12, 2019 10:04
--- NOTE | 2019-12-12 10:55 | HPEPDOC ---
[facility] Medical History & Physical Date of Admission Dec 11, 2019 Date of Service: Dec 12, 2019 Attending Physician: Margarita Baker MD History and Physical HISTORY OF PRESENT ILLNESS: Patient is a 49-year-old male with a history of depression, suicidal ideation, hepatitis C, polysubstance abuse with Winter, methamphetamine,heroin, active tobacco use, BPH, reflux, and kidney stones, admitted to the inpatient mental health unit due to unspecified psychotic disorder. Patient otherwise has no new complaints. Denies fever or chills, weight gain, weight loss, changes in appetite, nausea, vomiting, diarrhea, abdominal pain. No jaundice, polyphagia, polydipsia, weight gain, weight loss. Denies any dysuria, urgency, frequency, shortness of breath, chest pain, pressure, or tightness, sore throat, ear discharge, tinnitus, vertigo, headaches, upper or lower extremity weakness or paresthesias. MEDICAL HISTORY: 1. Depression, suicidal ideation. 2. Hepatitis C. 3. Polysubstance abuse. 4. Intravenous (IV) drug use. 5. BPH. 6. Reflux. 7. Kidney stones. CURRENT MEDICATIONS: Please see below SOCIAL HISTORY: Active tobacco abuse, less than half a pack per day for years. Previously used Winter, methamphetamine, heroin. Had been on Suboxone. 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 FAMILY HISTORY: Mother with chronic obstructive pulmonary disease (COPD). Fatherwith coronary artery disease (CAD). Kidney stones in both parents. PHYSICAL EXAMINATION: VS: Please see below GENERAL: Awake, alert, oriented to person, place, and time, answering questions appropriately. Anicteric sclerae, no jaundice. No icterus. No jugular venous distention (JVD) or thyromegaly. Moist mucous membranes. LUNGS: Clear to auscultation. No wheezing, rales, or rhonchi. HEART: S1, S2, sinus rhythm. ABDOMEN: Soft, nontender, nondistended. Positive bowel sounds. EXTREMITIES: No cyanosis, clubbing, or pitting edema.No signs of erythema, purulence, or serous drainage. ASSESSMENT AND PLAN: This is a 49-year-old male with a history of depression, suicidal ideation admitted to [facility] for unspecified psychotic disorder. 1. Unspecified psychotic disorder . Plan per psychiatry team. 2. Hx of Hepatitis C. Advised to f/u with o/p PCP. 3. Hx of depression with suicidal ideation. Plan per psychiatry team. 4. Polysubstance abuse. Monitor for s/s of withdrawl 5. IV drug use. Previously used heroin, methamphetamine, Winter. 6. BPH. 7. Reflux. 8. Kidney stones. 9. Tobacco abuse, active. PLAN: At this time patient's medical issues outside of psychiatric cause are stable. We will sign off and if we are needed again, please do not hesitate to call at any time. Vital Signs Vital Signs Date Time Temp Pulse Resp B/P (MAP) Pulse Ox O2 Delivery O2 Flow Rate FiO2 12/12/19 06:37 98.9 68 16 140/79 (99) 12/11/19 21:38 98 Room Air Laboratory Data Labs 24H Laboratory Tests 2 12/11/19 14:29: Urine Opiates Screen NEGATIVE, Urine Methadone Screen NEGATIVE, Urine Barbiturates Screen NEGATIVE, Urine Phencyclidine Screen NEGATIVE, Urine Amphetamines Screen POSITIVEH, Urine Benzodiazepines Screen NEGATIVE, Urine Cocaine Metabolite Screen NEGATIVE, Urine Cannabinoids Screen NEGATIVE 12/11/19 14:48: Nucleated Red Blood Cells % (auto) 0.0, Anion Gap 5L, Glomerular Filtration Rate > 60.0, Calcium Level 9.0, Total Bilirubin 1.2H, Direct Bilirubin 0.3H, Aspartate Amino Transf (AST/SGOT) 112H, Alanine Aminotransferase (ALT/SGPT) 154H, Alkaline Phosphatase 106, Total Protein 7.1, Albumin 3.6, Albumin/Globulin Ratio 1.0, Thyroid Stimulating Hormone (TSH) 0.804, Salicylates Level < 1.7L, Acetaminophen Level < 2.0L, Ethyl Alcohol Level < 0.003 CBC/BMP Laboratory Tests 12/11/19 14:48 Home Medications Scheduled Aripiprazole (Abilify) 5 Mg Tablet, 5 MG PO QHS Multivitamin (Tab-A-Antwan) 1 Each Tablet, 1 TAB PO DAILY Trazodone HCl (Trazodone HCl) 100 Mg Tablet, 100 MG PO QHS Scheduled PRN Quetiapine Fumarate (Quetiapine Fumarate) 200 Mg Tablet, 200 MG PO QHS PRN for SLEEP Allergies Coded Allergies: No Known Allergies (Unverified , 08/29/18) A-FIB/CHADSVASC A-FIB History Current/History of A-Fib/PAF?: No Current PO Anticoag Therapy: No Age/Risk Factor Scoring CHADSVASC: CHADSVASC Response (Comments) Value Age Risk Factor Age < 65 years old 0 Gender Risk Factor Male 0 Hx of CHF No 0 Hx of HTN No 0 Hx of Stroke/TIA/or VTE No 0 Hx of Diabetes No 0 Hx of Vascular Disease No 0 Total 0 Treatment Treatment ordered: NONE Current Medications Current Medications Medications (Trade) Dose Ordered Sig/Esther Route PRN Reason Start Time Stop Time Status Last Admin Dose Admin Acetaminophen (Tylenol Tab) 650 mg Q6HP PRN PO HEADACHE or DISCOMFORT 12/11/19 19:45 Al Hydrox/Mg Hydrox/Simethicone (Mylanta) 30 ml Q4HP PRN PO HEARTBURN/INDIGESTION 12/11/19 19:45 Aripiprazole (AbiLIFY) 5 mg QHS PO 12/11/19 21:00 12/11/19 21:46 Home Med (Med Rec Complete!) ASDIRECTED XX 12/11/19 19:45 12/11/19 19:45 DC Magnesium Hydroxide (Milk Of Magnesia) 30 ml DAILYPRN PRN PO CONSTIPATION 12/11/19 19:45 Multivitamins (Theragram-M) 1 tab DAILY PO 12/12/19 09:00 12/12/19 09:00 Olanzapine (ZyPREXA ZYDIS) 5 mg Q4HP PRN PO AGITATION/ ANXIETY 12/11/19 19:45 Quetiapine Fumarate (SEROquel) 200 mg QHS PO 12/11/19 21:00 12/11/19 21:46 Trazodone HCl (Desyrel) 100 mg QHSP PRN PO INSOMNIA 12/11/19 19:45 12/11/19 21:46 Margarita Baker MD Dec 12, 2019 10:55
[2019-12-12] MEDS: QUEtiapine FUMARATE 200 MG TAB PO SCH (21:43)
[2019-12-13 06:24] VITALS: BP 127/66
[2019-12-13] MEDS: MULTIVITAMINS/MINERALS THERAP 1 TAB PO SCH (09:44)
[2019-12-13 18:00] VITALS: BP 114/74
[2019-12-13] MEDS: QUEtiapine FUMARATE 200 MG TAB PO SCH (21:16)
[2019-12-14 06:33] VITALS: BP 107/60
[2019-12-14] MEDS: MULTIVITAMINS/MINERALS THERAP 1 TAB PO SCH (09:00)
[2019-12-14 18:01] VITALS: BP 116/70
[2019-12-14] MEDS: traZODone 50 MG TAB PO PRN (20:32)
[2019-12-14] MEDS: QUEtiapine FUMARATE 200 MG TAB PO SCH (20:33)
[2019-12-15 06:50] VITALS: BP 132/83
[2019-12-15] MEDS: MULTIVITAMINS/MINERALS THERAP 1 TAB PO SCH (09:00)
--- NOTE | 2019-12-15 16:28 | MHIPN ---
DATE: 12/14/2019 The patient states that he is doing good. He has no complaints. MENTAL STATUS EXAMINATION: He is alert and oriented times three. He exhibits no formal thought disorder. Mood is good. Affect flat. No psychotic, suicidal, homicidal. Concentration is fair. Memory intact. Insight and judgment are fair. DIAGNOSIS: Unspecified psychotic disorder. TREATMENT PLAN: We will continue to monitor the patient for any psychotic symptoms or any suicidal or homicidal thoughts. STAN
[2019-12-15 17:58] VITALS: BP 106/66
[2019-12-15] MEDS: QUEtiapine FUMARATE 200 MG TAB PO SCH (21:46)
[2019-12-15] MEDS: traZODone 50 MG TAB PO PRN (21:47)
[2019-12-16 06:35] VITALS: BP 127/69
[2019-12-16] MEDS: MULTIVITAMINS/MINERALS THERAP 1 TAB PO SCH (09:00)
--- NOTE | 2019-12-16 09:43 | MHIPNPDOC ---
[facility] Progress Note Progress Note DATE OF SERVICE: 12/16/19 Subjective HPI: Hunter was met with briefly today. He reports that he is still able to eat but has had difficulty since he left last time. Hes quite gaunt when interviewed, and he reports that he has lost quite a bit of weight. MEDICATIONS: Since restarting his Seroquel and Abilify, he reports to have started feeling better and less anxious. Objective Behavior: Gaunt. Very thin. Affect: Somewhat flat. Dysthemic. Speech: Spontaneous and Fluid. Normal rate. Normal volume. Thought Form: Linear and goal directed. Associations intact. Thought Content: No evidence of suicidal ideation. No evidence of delusions. No evidence of aggressive or homicidal ideation. No thoughts of self harm. Judgement: Poor to fair. Insight: Poor to fair. 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 He will need significant time to improve. Vital Signs Vital Signs Date Time Temp Pulse Resp B/P (MAP) Pulse Ox O2 Delivery O2 Flow Rate FiO2 12/16/19 06:35 98.4 66 18 127/69 (88) 99 Room Air Current Medications Current Medications Medications (Trade) Dose Ordered Sig/Esther Route PRN Reason Start Time Stop Time Status Last Admin Dose Admin Acetaminophen (Tylenol Tab) 650 mg Q6HP PRN PO HEADACHE or DISCOMFORT 12/11/19 19:45 Al Hydrox/Mg Hydrox/Simethicone (Mylanta) 30 ml Q4HP PRN PO HEARTBURN/INDIGESTION 12/11/19 19:45 Aripiprazole (AbiLIFY) 5 mg QHS PO 12/11/19 21:00 12/15/19 21:46 Home Med (Med Rec Complete!) ASDIRECTED XX 12/11/19 19:45 12/11/19 19:45 DC Magnesium Hydroxide (Milk Of Magnesia) 30 ml DAILYPRN PRN PO CONSTIPATION 12/11/19 19:45 Multivitamins (Theragram-M) 1 tab DAILY PO 12/12/19 09:00 12/13/19 09:44 Olanzapine (ZyPREXA ZYDIS) 5 mg Q4HP PRN PO AGITATION/ ANXIETY 12/11/19 19:45 Quetiapine Fumarate (SEROquel) 200 mg QHS PO 12/11/19 21:00 12/15/19 21:46 Trazodone HCl (Desyrel) 100 mg QHSP PRN PO INSOMNIA 12/11/19 19:45 12/15/19 21:47 Allergies Coded Allergies: No Known Allergies (Unverified , 08/29/18) KIKI JACQUES DO Dec 16, 2019 09:43
[2019-12-16 16:03] VITALS: BP 100/76
[2019-12-16] MEDS: OLANZapine ORAL DISINTEGRATING TAB 5MG PO PRN (18:11)
[2019-12-16] MEDS: traZODone 50 MG TAB PO PRN (20:45)
[2019-12-16] MEDS: QUEtiapine FUMARATE 200 MG TAB PO SCH (20:45)
[2019-12-17 06:26] VITALS: BP 102/70
[2019-12-17] MEDS: MULTIVITAMINS/MINERALS THERAP 1 TAB PO SCH (09:36)
--- NOTE | 2019-12-17 10:04 | MHIPN ---
DATE: 12/13/2019 The patient today tells me that he is already feeling better. He has no complaints. He feels that his main problem is that he needs to move and he says he has a medical case worker that is beginning to help him with that now. MENTAL STATUS EXAMINATION: He is alert and oriented times three. There is no formal thought disorder noted. He is verbally spontaneous. He says his mood is good. Affect is flat. He is not psychotic, suicidal, or homicidal. Concentration is fair. Memory intact. Insight and judgment fair. DIAGNOSIS: Unspecified psychotic disorder. TREATMENT PLAN: We will continue to monitor the patient for further resolution of any psychotic symptoms and of any suicidal or homicidal ideations. STAN
--- NOTE | 2019-12-17 10:06 | MHIPN ---
DATE: 12/15/2019 The patient today tells me that he is doing good. He has no complaints. MENTAL STATUS EXAMINATION: This patient is alert and oriented times three. Eye contact is fair. Psychomotor activity is decreased. There is no formal thought disorder. He says his mood is good and his affect is constricted but appropriate. He denies any psychotic symptoms. Insight and judgment is fair. Patient denies suicidal or homicidal ideations. DIAGNOSIS: Unspecified psychotic disorder. TREATMENT PLAN: At this point, we will continue to monitor the patient for his ongoing psychotic symptoms and any mood symptoms. STAN
--- NOTE | 2019-12-17 10:43 | MHIPNPDOC ---
[facility] Progress Note Progress Note DATE OF SERVICE: 12/17/19 Subjective HPI: Hunter presents today for concerns regarding his psych issues. The patient was met with today. He reports he's open to going to rehab. He reports that although he had not been using prior to coming in, it appears that that had been a primary issue. He reports that he still feels paranoid about the people at his apartment complex and feels that they're out to get him. The patient otherwise has been engaging but isolative time. Objective Appearance: Fair hygiene, however gaunt and thin looking. Affect: Mildly dysthemic. Thought Form: Linear and goal directed. Logical at most times. Associations are mildly loosened. Some paranoia detected. Thought Content: No evidence of aggressive or homicidal ideation. No thoughts of self harm. No evidence of suicidal ideation. No evidence of delusions. Judgement: Poor-Fair. Insight: Poor-Fair. 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 Will see about referring to rehab as he has multiple admissions and appears substance is a major part of his presenting problem. Vital Signs Vital Signs Date Time Temp Pulse Resp B/P (MAP) Pulse Ox O2 Delivery O2 Flow Rate FiO2 12/17/19 06:26 97.5 59 16 102/70 (81) 12/16/19 06:35 99 Room Air Current Medications Current Medications Medications (Trade) Dose Ordered Sig/Esther Route PRN Reason Start Time Stop Time Status Last Admin Dose Admin Acetaminophen (Tylenol Tab) 650 mg Q6HP PRN PO HEADACHE or DISCOMFORT 12/11/19 19:45 Al Hydrox/Mg Hydrox/Simethicone (Mylanta) 30 ml Q4HP PRN PO HEARTBURN/INDIGESTION 12/11/19 19:45 Aripiprazole (AbiLIFY) 5 mg QHS PO 12/11/19 21:00 12/16/19 20:45 Home Med (Med Rec Complete!) ASDIRECTED XX 12/11/19 19:45 12/11/19 19:45 DC Magnesium Hydroxide (Milk Of Magnesia) 30 ml DAILYPRN PRN PO CONSTIPATION 12/11/19 19:45 Multivitamins (Theragram-M) 1 tab DAILY PO 12/12/19 09:00 12/17/19 09:36 Olanzapine (ZyPREXA ZYDIS) 5 mg Q4HP PRN PO AGITATION/ ANXIETY 12/11/19 19:45 12/16/19 18:11 Quetiapine Fumarate (SEROquel) 200 mg QHS PO 12/11/19 21:00 12/16/19 20:45 Trazodone HCl (Desyrel) 100 mg QHSP PRN PO INSOMNIA 12/11/19 19:45 12/16/19 20:45 Allergies Coded Allergies: No Known Allergies (Unverified , 08/29/18) KIKI JACQUES DO Dec 17, 2019 10:43
[2019-12-17] MEDS: OLANZapine ORAL DISINTEGRATING TAB 5MG PO PRN (12:28)
[2019-12-17 16:38] VITALS: BP 115/75
[2019-12-17] MEDS: QUEtiapine FUMARATE 200 MG TAB PO SCH (19:54)
[2019-12-17] MEDS: traZODone 50 MG TAB PO PRN (19:54)
[2019-12-18 06:29] VITALS: BP 134/77
[2019-12-18] MEDS: OLANZapine ORAL DISINTEGRATING TAB 5MG PO PRN ×2 (09:11→17:47)
[2019-12-18] MEDS: MULTIVITAMINS/MINERALS THERAP 1 TAB PO SCH (09:11)
--- NOTE | 2019-12-18 10:55 | MHIPNPDOC ---
[facility] Progress Note Progress Note DATE OF SERVICE: 12/18/19 Subjective HPI: The patient has been met with today. He reports that he's doing well, and he's made some progress. Reports anxiety from time to time, but otherwise has been engaged. He's open to going to rehab and otherwise has been behaving well. Objective Appearance: Appears to be stated age. Well nourished. Well groomed. Behavior: Pleasant. Engaged. Cooperative with good eye contact. Affect: Appropriate to context. Full range. Mood: Generally good. Appropriately reactive. Euthymic. Speech: Spontaneous and Fluid. Normal volume. Normal rate. Motor: No gross motor abnormalities. Cognition: Alert, Attentive, and Oriented to person, place, time. Memory: No gross abnormalities of short or prison memory noted during interview. No formal testing. Thought Form: Linear and goal directed. Thought Content: No evidence of suicidal ideation. No thoughts of self harm. No evidence of aggressive or homicidal ideation. No evidence of delusions. Perception: No perceptual abnormalities noted. Judgement: Intact as evidenced by decision making in the recent past. Insight: Good insight into symptoms and treatment options. Assessment F19.159 Other psychoactive substance abuse with psychoactive substance-induced psychotic disorder, unspecified F32.89 Other specified depressive episodes F19.90 Other psychoactive substance use, unspecified, uncomplicated Plan Continue Seroquel and Abilify at this time. We'll see about rehab. If not reasonable, will discharge back to home. However, exploration at this time and referral be made. Vital Signs Vital Signs Date Time Temp Pulse Resp B/P (MAP) Pulse Ox O2 Delivery O2 Flow Rate FiO2 12/18/19 06:29 98.3 65 16 134/77 (96) 12/17/19 11:05 Room Air 12/16/19 06:35 99 Current Medications Current Medications Medications (Trade) Dose Ordered Sig/Esther Route PRN Reason Start Time Stop Time Status Last Admin Dose Admin Acetaminophen (Tylenol Tab) 650 mg Q6HP PRN PO HEADACHE or DISCOMFORT 12/11/19 19:45 Al Hydrox/Mg Hydrox/Simethicone (Mylanta) 30 ml Q4HP PRN PO HEARTBURN/INDIGESTION 12/11/19 19:45 Aripiprazole (AbiLIFY) 5 mg QHS PO 12/11/19 21:00 12/17/19 19:54 Home Med (Med Rec Complete!) ASDIRECTED XX 12/11/19 19:45 12/11/19 19:45 DC Magnesium Hydroxide (Milk Of Magnesia) 30 ml DAILYPRN PRN PO CONSTIPATION 12/11/19 19:45 Multivitamins (Theragram-M) 1 tab DAILY PO 12/12/19 09:00 12/18/19 09:11 Olanzapine (ZyPREXA ZYDIS) 5 mg Q4HP PRN PO AGITATION/ ANXIETY 12/11/19 19:45 12/18/19 09:11 Quetiapine Fumarate (SEROquel) 200 mg QHS PO 12/11/19 21:00 12/17/19 19:54 Trazodone HCl (Desyrel) 100 mg QHSP PRN PO INSOMNIA 12/11/19 19:45 12/17/19 19:54 Allergies Coded Allergies: No Known Allergies (Unverified , 08/29/18) KIKI JACQUES DO Dec 18, 2019 10:55
[2019-12-18 16:40] VITALS: BP 112/69
[2019-12-18] MEDS: traZODone 50 MG TAB PO PRN (20:07)
[2019-12-18] MEDS: QUEtiapine FUMARATE 200 MG TAB PO SCH (20:07)
[2019-12-19 06:29] VITALS: BP 121/71
[2019-12-19] MEDS: MULTIVITAMINS/MINERALS THERAP 1 TAB PO SCH (09:03)
--- NOTE | 2019-12-19 09:40 | MHIPNPDOC ---
[facility] Progress Note Progress Note DATE OF SERVICE: 12/19/19 Subjective HPI: Hunter presents today for follow up. His anxiety is generally resolved. Hunter is open to doing intensive outpatient at home until potentially being able to go to rehab. Objective Appearance: Well nourished. Well groomed. Appears to be stated age. Behavior: Engaged. Cooperative with good eye contact. Pleasant. Affect: Full range. Appropriate to context. Mood: Euthymic. Generally good. Appropriately reactive. Speech: Normal volume. Normal rate. Spontaneous and Fluid. Motor: No gross motor abnormalities. Cognition: Alert, Attentive, and Oriented to person, place, time. Memory: No formal testing. No gross abnormalities of short or terminal block assembler memory noted during interview. Thought Form: Linear and goal directed. Thought Content: No evidence of aggressive or homicidal ideation. No evidence of delusions. No evidence of suicidal ideation. No thoughts of self harm. Perception: No perceptual abnormalities noted. Judgement: Intact as evidenced by decision making in the recent past. Insight: Good insight into symptoms and treatment options. 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 Vital Signs Vital Signs Date Time Temp Pulse Resp B/P (MAP) Pulse Ox O2 Delivery O2 Flow Rate FiO2 12/19/19 06:29 98.0 59 18 121/71 (88) 12/18/19 11:15 Room Air 12/16/19 06:35 99 Current Medications Current Medications Medications (Trade) Dose Ordered Sig/Esther Route PRN Reason Start Time Stop Time Status Last Admin Dose Admin Acetaminophen (Tylenol Tab) 650 mg Q6HP PRN PO HEADACHE or DISCOMFORT 12/11/19 19:45 Al Hydrox/Mg Hydrox/Simethicone (Mylanta) 30 ml Q4HP PRN PO HEARTBURN/INDIGESTION 12/11/19 19:45 Aripiprazole (AbiLIFY) 5 mg QHS PO 12/11/19 21:00 12/18/19 20:07 Home Med (Med Rec Complete!) ASDIRECTED XX 12/11/19 19:45 12/11/19 19:45 DC Magnesium Hydroxide (Milk Of Magnesia) 30 ml DAILYPRN PRN PO CONSTIPATION 12/11/19 19:45 Multivitamins (Theragram-M) 1 tab DAILY PO 12/12/19 09:00 12/19/19 09:03 Olanzapine (ZyPREXA ZYDIS) 5 mg Q4HP PRN PO AGITATION/ ANXIETY 12/11/19 19:45 12/18/19 17:47 Quetiapine Fumarate (SEROquel) 200 mg QHS PO 12/11/19 21:00 12/18/19 20:07 Trazodone HCl (Desyrel) 100 mg QHSP PRN PO INSOMNIA 12/11/19 19:45 12/18/19 20:07 Allergies Coded Allergies: No Known Allergies (Unverified , 08/29/18) KIKI JACQUES DO Dec 19, 2019 09:40
[2019-12-19] MEDS: OLANZapine ORAL DISINTEGRATING TAB 5MG PO PRN (17:32)
[2019-12-19] MEDS: traZODone 50 MG TAB PO PRN (20:05)
[2019-12-19] MEDS: QUEtiapine FUMARATE 200 MG TAB PO SCH (20:05)
[2019-12-20 07:34] VITALS: BP 111/73
[2019-12-20] MEDS: MULTIVITAMINS/MINERALS THERAP 1 TAB PO SCH (08:43)
--- NOTE | 2019-12-20 10:33 | MHDSPDOC ---
[facility] Discharge Summary Discharge Summary DATE OF ADMISSION: Dec 11, 2019 at 19:36 DATE OF DISCHARGE: Dec 20, 2019 at 11:15 DISCHARGE DIAGNOSES: F19.150 Other psychoactive substance abuse with psychoactive substance-induced psychotic disorder with delusions F33.8 Other recurrent depressive disorders CONSULTANTS INVOLVED:[ None (basic hospitalist screening)] REASON FOR ADMISSION & TREATMENT AND PROGRESS ON THE UNIT : The patient was admitted to the inpatient mental health unit after being depressed and psychotic from multiple substance use problems. He made some improvements over time but did not have any significant problems. He was somewhat paranoid about some people at his previous (inaudible) but this rapidly vanished, and he made excellent progress with no issues. The patient reported that he would be fine doing the IOP program and wish to go. The patient is well- connected with outpatient substance use and is in the IOP program. Is currently pending the placement housing. MEDICATIONS: The patient otherwise was resumed on Abilify and Seroquel of which he generally did well. DISCHARGE ASSESSMENT[improved] Legal status considerations: The patient at the time of discharge did not meet criteria for involuntary admission/extension due to having a [normal] mental status exam, [fair] insight into the situation, They are engaged in the discharge process, as well as being friendly and amenable in behavioral control and havent been engaging in any observed concerning behavior or ideation recently. They decline voluntary extension/admission at this time and must be discharged in good barry, as Im unable to make a case for holding the patient against their will. They may have historical risk factors of admissions and other interactions with psychiatry however, those are not modifiable from a clinical perspective. The patient will need to be discharged in good barry. MENTAL STATUS EXAMINATION ON DISCHARGE: [General: Well dressed with good hygiene Speech: Spontaneous and fluid Thought processes: Linear and logical Thought content: Future orientated Abstract reasoning, and computation: Intact Description of associations: Intact Description of abnormal or psychotic thoughts:Denies any suicidal or homicidal ideation. Denies any auditory or visual hallucinations. Does not appear to be responding to internal stimuli. Does not appear to be endorsing any bizarre or paranoid ideation. Judgment: fair Insight: fair Orientation: Alert and orientated 3 Recent and remote memory: Intact Attention span and concentration: Intact Fund of knowledge: Adequate Mood: "okay" Affect: Euthymic with a full range] PLAN/FOLLOWUP ARRANGEMENTS: Follow up appointments made (PCP and MH in 5 days of D/C date) and safety plan completed. Safety Planning aspects completed prior to discharge [Medication supplies limited to 7 days with 4 refills to prevent accumulation to OD] [RN reviewed crisis hotline information and other aspects to empower patient to access care in interim before next appointment.] The amount of time spent in the coordination of care for this patient was approximately 30 minutes. Vital Signs/I&Os Vital Signs Date Time Temp Pulse Resp B/P (MAP) Pulse Ox O2 Delivery O2 Flow Rate FiO2 12/20/19 07:34 98.0 75 16 111/73 (86) Room Air 12/16/19 06:35 99 Medications Scheduled Aripiprazole (Aripiprazole) 5 Mg Tablet, 5 MG PO QHS, (Reported) Quetiapine Fumarate (Quetiapine Fumarate) 200 Mg Tablet, 200 MG PO QHS, (Reported) Trazodone HCl (Trazodone HCl) 100 Mg Tablet, 100 MG PO QHS, (Reported) Allergies Coded Allergies: No Known Allergies (Unverified , 08/29/18) KIKI JACQUES DO Dec 20, 2019 10:33
[2019-12-20] MEDS ORDERED: ABIL1TAB11 PO (10:36)
[2019-12-20] MEDS ORDERED: QUET200T2 PO (10:36)
[2019-12-20] MEDS ORDERED: TRAZ-189 PO (10:36)
== END 2019-12-20 11:15 | disposition home or self-care (01) | DRG 776 ==
LOC: M ED 13:39 → M ED INP 19:36 → M PSY 21:10
PROVIDERS: ADMIT Psychiatry & Neurology Addiction Medicine; ATTEND Psychiatry & Neurology Addiction Medicine
DX: F19.950 Other psychoactive substance use, unspecified with psychoactive substance-induced psychotic disorder with delusions (principal); F32.89 Other specified depressive episodes; F15.10 Other stimulant abuse, uncomplicated; F16.20 Hallucinogen dependence, uncomplicated; Z79.899 Other long term (current) drug therapy; N40.0 Benign prostatic hyperplasia without lower urinary tract symptoms; K21.9 Gastro-esophageal reflux disease without esophagitis; Z87.442 Personal history of urinary calculi; F17.200 Nicotine dependence, unspecified, uncomplicated

== ENCOUNTER 2019-12-28 17:04 | Emergency (ER) | payer MEDICAID, OTHER ==
[~2019-12-28] VITALS: Ht 175.3 cm; Wt 56.1 kg
[~2019-12-28 17:04] MED LIST changes: +TAB-TAB2 PO
[2019-12-28] MEDS ORDERED: GI COCKTAIL 50ML BTL(HYOSCYAMINE/MAALOX/LIDOCAINE VISCOUS)(1:3:1) PO ONE (17:30)
--- NOTE | 2019-12-28 17:51 | REPVR ---
PROCEDURE INFORMATION: Exam: CT Head Without Contrast Exam date and time: 12/28/2019 5:26 PM Age: 49 years old Clinical indication: Injury or trauma; Other: Possible injury; Blunt trauma (contusions or hematomas); Consciousness not specified TECHNIQUE: Imaging protocol: Computed tomography of the head without contrast. Radiation optimization: All CT scans at this facility use at least one of these dose optimization techniques: automated exposure control; mA and/or kV adjustment per patient size (includes targeted exams where dose is matched to clinical indication); or iterative reconstruction. COMPARISON: No relevant prior studies available. FINDINGS: Brain: No hemorrhage. Unremarkable white matter for the patient's age. No mass effect. No evolving territorial infarct. Cerebral ventricles: No ventriculomegaly. Bones/joints: No acute calvarial fracture seen. Severe degenerative changes of the right temporomandibular joint. Paranasal sinuses: Focal posterior left ethmoid opacity. No fluid levels. Mastoid air cells: Visualized mastoid air cells are well aerated. Soft tissues: Unremarkable. IMPRESSION: No acute intracranial abnormality seen. Electronically signed by: Marilia Kelsey On 12/28/2019 17:50:48 PM
[2019-12-28 17:57] LABS: HEMATOCRIT 38.5 % (42.0-52.0); HEMOGLOBIN 12.9 g/dl (13.5-17.5); MEAN CORPUSCULAR HEMOGLOBIN 28.6 pg (27.0-33.0); MEAN CORPUSCULAR HGB CONC 33.5 g/dl (32.0-36.5); MEAN CORPUSCULAR VOLUME 85.4 fl (80.0-96.0); PLATELET COUNT, AUTOMATED 360 10^3/uL (150-450); RED BLOOD COUNT 4.51 10^6/uL (4.30-6.10); WHITE BLOOD COUNT 16.7 10^3/uL (4.0-10.0)
[2019-12-28] MEDS ORDERED: OLANZapine ORAL DISINTEGRATING TAB 5MG PO ONE (18:00)
--- NOTE | 2019-12-28 18:12 | REP ---
INDICATION: chest pain COMPARISON: 10/21/2019 TECHNIQUE: Portable AP view of the chest FINDINGS: The mediastinum and cardiac silhouette are stable and within normal limits for portable technique. The lung mckeon are clear without acute consolidation, effusion, or pneumothorax. Skeletal structures are intact. IMPRESSION: No acute cardiopulmonary process appreciated. <Electronically signed by Slade Sun > 12/28/19 0402
[2019-12-28] MEDS ORDERED: BOOSTRIX/ADACEL VACCINE (DIPHTH/PERTUSS/ACELL/TETANUS) 0.5ML SYR IM ONE (18:15)
[2019-12-28] MEDS ORDERED: LORazepam 2 MG TAB PO ONE (18:30)
[2019-12-28 18:32] LABS: ACETAMINOPHEN LEVEL < 2.0 UG/ML (10.0-30.0); ALBUMIN 4.1 GM/DL (3.2-5.2); ALT/SGPT 205 U/L (12-78); BILIRUBIN,DIRECT 0.3 MG/DL (0.0-0.2); BLOOD UREA NITROGEN 17 MG/DL (7-18); CALCIUM LEVEL 9.2 MG/DL (8.5-10.1); CARBON DIOXIDE LEVEL 23 MEQ/L (21-32); CHLORIDE LEVEL 103 MEQ/L (98-107); CPK CREATINE PHOSPHOKINASE 532 U/L (39-308); CREATININE FOR GFR 1.17 MG/DL (0.70-1.30); ETHYL ALCOHOL (ETHANOL) < 0.003 % (0.000-0.010); GLOMERULAR FILTRATION RATE > 60.0 (>60); GLUCOSE, FASTING 63 MG/DL (70-100); MB/CK RELATIVE INDEX 0.38 (< OR =4); POTASSIUM SERUM 4.4 MEQ/L (3.5-5.1); SALICYLATE LEVEL < 1.7 MG/DL (5.0-30.0); SODIUM LEVEL 137 MEQ/L (136-145); TOTAL PROTEIN 7.9 GM/DL (6.4-8.2); TROPONIN I < 0.02 NG/ML (< 0.10)
[2019-12-28] MEDS ORDERED: HALOPERIDOL 5MG/ML VIAL (J1630 PER 1) IM ONE (19:45)
[2019-12-28] MEDS ORDERED: diphenhydrAMINE 50MG/ML VIAL (J1200) IM ONE (19:45)
[2019-12-28] MEDS ORDERED: LORazepam 2 MG/ML VIAL IM ONE (19:45)
[2019-12-28] MEDS ORDERED: LORazepam 2 MG/ML VIAL As Ordered ONE (19:54)
[2019-12-28] MEDS ORDERED: ARIP1TAB6 PO (19:56)
[2019-12-28] MEDS ORDERED: TRAZ-257 PO (19:56)
[2019-12-28] MEDS ORDERED: QUET200T2 PO (19:56)
[2019-12-28] MEDS ORDERED: med rec comment (19:57)
[2019-12-29 07:27] LABS: AMPHETAMINES LEVEL URINE POSITIVE (NEGATIVE); BARBITURATES URINE NEGATIVE (NEGATIVE); BENZODIAZEPINES URINE NEGATIVE (NEGATIVE); CANNABINOIDS URINE POSITIVE (NEGATIVE); COCAINE METABOLITE URINE NEGATIVE (NEGATIVE); METHADONE URINE NEGATIVE (NEGATIVE); OPIATES URINE NEGATIVE (NEGATIVE); PHENCYCLIDINE URINE NEGATIVE (NEGATIVE)
[2019-12-29 08:10] LABS: BASO % 0.3 % (0.0-1.0); EOS # 0.1 10^3/uL (0.0-0.5); EOS % 0.9 % (0.0-3.0); HEMATOCRIT 37.1 % (42.0-52.0); HEMOGLOBIN 12.3 g/dl (13.5-17.5); LYMPH # 1.1 10^3/uL (1.5-5.0); LYMPH % 14.5 % (24.0-44.0); MEAN CORPUSCULAR HEMOGLOBIN 28.9 pg (27.0-33.0); MEAN CORPUSCULAR HGB CONC 33.2 g/dl (32.0-36.5); MEAN CORPUSCULAR VOLUME 87.1 fl (80.0-96.0); MONO # 0.7 10^3/uL (0.0-0.8); MONO % 9.1 % (0.0-5.0); NEUTROPHILS # 5.9 10^3/uL (1.5-8.5); NEUTROPHILS % 74.9 % (36.0-66.0); PLATELET COUNT, AUTOMATED 294 10^3/uL (150-450); RED BLOOD COUNT 4.26 10^6/uL (4.30-6.10); WHITE BLOOD COUNT 7.8 10^3/uL (4.0-10.0)
[2019-12-29] MEDS ORDERED: QUEtiapine FUMARATE 200 MG TAB PO ONE (20:45)
[2019-12-30 19:06] VITALS: BP 138/75
--- NOTE | 2019-12-31 08:52 | ECGEPIP ---
[facility] - ED Test Date: 2019-12-28 Pat Name: RIVERA CARROLL Department: Room: - Gender: Male Tubing Tester: RADHAMES : 1970 Requested By: SCARLETT Paagn Order Number: [id number] Reading MD: Dori Tran Measurements Intervals [place] Rate: 95 P: 70 MI: 139 QRS: -13 QRSD: 97 T: 62 QT: 363 QTc: 458 Interpretive Statements SINUS RHYTHM POSSIBLE LEFT ATRIAL ENLARGEMENT POSSIBLE INFERIOR MYOCARDIAL INFARCTION, OF INDETERMINATE AGE INCREASED RATE 12/01/19 Electronically Signed on 12-31-2019 8:52:15 EDT by Dori Tran
--- NOTE | 2019-12-31 09:30 | ECGEPIP ---
[facility] - ED Test Date: 2019-12-30 Pat Name: RIVERA CARROLL Department: Room: - Gender: Male Signal Inspector: kathrin : 1970 Requested By: Ulises Nieves Order Number: [id number] Reading MD: Dori Tran Measurements Intervals [place] Rate: 76 P: 60 HI: 122 QRS: -26 QRSD: 99 T: 55 QT: 359 QTc: 405 Interpretive Statements SINUS RHYTHM INFERIOR MYOCARDIAL INFARCTION, PROBABLY OLD LOW VOLTAGE LIMB DECREASED RATE 12/28/19 Electronically Signed on 12-31-2019 9:29:46 EDT by Dori Tran
== END 2019-12-30 19:08 ==
LOC: M ED 17:04
DX: F29 Unspecified psychosis not due to a substance or known physiological condition (principal); B19.20 Unspecified viral hepatitis C without hepatic coma; F33.9 Major depressive disorder, recurrent, unspecified; K21.9 Gastro-esophageal reflux disease without esophagitis; N40.0 Benign prostatic hyperplasia without lower urinary tract symptoms; F11.10 Opioid abuse, uncomplicated; Z79.899 Other long term (current) drug therapy; F17.210 Nicotine dependence, cigarettes, uncomplicated
CPT/HCPCS: 36415; 70450; 71045; 80048; 80076; 80307; 81001; 82550; 82553; 84443; 85025; 85027; 90471; 90715; 93005; 96372; 99285; G0480; J1200; J1630; J2060

== ENCOUNTER 2020-02-01 15:52 | Inpatient (IN) | payer MEDICAID, OTHER ==
[~2020-02-01] VITALS: Ht 165.1 cm; Wt 60.9 kg
[2020-02-01] MEDS ORDERED: NS 1,000 ML IV ONE (16:15)
[2020-02-01] MEDS ORDERED: CHARCOAL ACTIVATED LIQUID 25 GM/120 ML BTL PO ONE (16:15)
[2020-02-01 16:49] LABS: VENOUS BASE EXCESS 3.2 (-2.0-2.0); VENOUS HCO3 28.4 MEQ/L (23.0-27.0); VENOUS O2 SATURATION 98.6 % (60.0-80.0); VENOUS PARTIAL PRESSURE CO2 45.7 mmHg (38.0-50.0); VENOUS PARTIAL PRESSURE O2 128.5 mmHg (30.0-50.0); VENOUS PH 7.412 UNITS (7.330-7.430); VENOUS STANDARD HCO3 27.4 MEQ/L; VENOUS TOTAL CO2 29.9 MEQ/L (24.0-28.0)
[2020-02-01 16:54] LABS: BASO % 0.2 % (0.0-1.0); EOS # 0.2 10^3/uL (0.0-0.5); EOS % 3.6 % (0.0-3.0); HEMATOCRIT 38.8 % (42.0-52.0); HEMOGLOBIN 12.8 g/dl (13.5-17.5); LYMPH # 1.2 10^3/uL (1.5-5.0); LYMPH % 25.8 % (24.0-44.0); MEAN CORPUSCULAR HEMOGLOBIN 28.6 pg (27.0-33.0); MEAN CORPUSCULAR VOLUME 86.8 fl (80.0-96.0); MONO # 0.7 10^3/uL (0.0-0.8); NEUTROPHILS # 2.4 10^3/uL (1.5-8.5); NEUTROPHILS % 54.2 % (36.0-66.0); PLATELET COUNT, AUTOMATED 324 10^3/uL (150-450); RED BLOOD COUNT 4.47 10^6/uL (4.30-6.10); WHITE BLOOD COUNT 4.5 10^3/uL (4.0-10.0)
[2020-02-01] MEDS ORDERED: LIDOCAINE 2% 5ML JELLY UROJET TOP ONE (17:30)
[2020-02-01 17:31] LABS: ACETAMINOPHEN LEVEL < 2.0 UG/ML (10.0-30.0); ALBUMIN 3.4 GM/DL (3.2-5.2); ALT/SGPT 183 U/L (12-78); BILIRUBIN,DIRECT 0.1 MG/DL (0.0-0.2); BILIRUBIN,TOTAL 0.5 MG/DL (0.2-1.0); BLOOD UREA NITROGEN 11 MG/DL (7-18); CALCIUM LEVEL 9.1 MG/DL (8.5-10.1); CARBON DIOXIDE LEVEL 27 MEQ/L (21-32); CHLORIDE LEVEL 109 MEQ/L (98-107); CPK CREATINE PHOSPHOKINASE 92 U/L (39-308); CREATININE FOR GFR 1.01 MG/DL (0.70-1.30); ETHYL ALCOHOL (ETHANOL) < 0.003 % (0.000-0.010); GLOMERULAR FILTRATION RATE > 60.0 (>60); GLUCOSE, FASTING 95 MG/DL (70-100); POTASSIUM SERUM 3.7 MEQ/L (3.5-5.1); SALICYLATE LEVEL < 1.7 MG/DL (5.0-30.0); SODIUM LEVEL 142 MEQ/L (136-145); TOTAL PROTEIN 6.8 GM/DL (6.4-8.2)
[2020-02-01 18:25] LABS: AMPHETAMINES LEVEL URINE POSITIVE (NEGATIVE); BARBITURATES URINE NEGATIVE (NEGATIVE); BENZODIAZEPINES URINE NEGATIVE (NEGATIVE); CANNABINOIDS URINE POSITIVE (NEGATIVE); COCAINE METABOLITE URINE NEGATIVE (NEGATIVE); METHADONE URINE NEGATIVE (NEGATIVE); OPIATES URINE NEGATIVE (NEGATIVE); PHENCYCLIDINE URINE NEGATIVE (NEGATIVE)
--- NOTE | 2020-02-01 18:36 | ECGEPIP ---
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
[2020-02-01 22:04] LABS: ALT/SGPT 163 U/L (12-78)
[2020-02-01] MEDS ORDERED: BUPR150T3 PO (23:38)
[2020-02-01] MEDS ORDERED: ALBU8.5H PO (23:38)
[2020-02-02] MEDS ORDERED: QUEtiapine FUMARATE 200 MG TAB PO ONE (22:00)
[2020-02-02] MEDS ORDERED: traZODone 50 MG TAB PO ONE (22:00)
[2020-02-03] MEDS: buPROPion **XL** TABLET 150MG (WELLBUTRIN XL) PO SCH (09:16)
[2020-02-03] MEDS ORDERED: MOM 30ML SUSPENSION UDC PO PRN ×2 (18:30→18:45)
[2020-02-03] MEDS ORDERED: ACETAMINOPHEN TAB 650MG DOSE (2X325MG) PO PRN ×2 (18:30→18:45)
[2020-02-03] MEDS ORDERED: traZODone 50 MG TAB PO PRN ×2 (18:30→18:45)
[2020-02-03] MEDS ORDERED: MAALOX 30 ML SUSP *UDC PO PRN ×2 (18:30→18:45)
[2020-02-03 20:48] VITALS: BP 156/91
[2020-02-03] MEDS ORDERED: QUEtiapine FUMARATE 200 MG TAB PO SCH (21:00)
[2020-02-03] MEDS ORDERED: traZODone 100 MG TAB PO SCH (21:00)
[2020-02-04 06:23] VITALS: BP 144/90
[2020-02-04] MEDS: buPROPion **XL** TABLET 150MG (WELLBUTRIN XL) PO SCH (09:07)
--- NOTE | 2020-02-04 12:48 | HPEPDOC ---
[facility] Medical History & Physical Date of Admission Feb 03, 2020 Date of Service: Feb 04, 2020 Attending Physician: Margarita Baker MD History and Physical MEDICINE CONSULT H&P HISTORY OF PRESENT ILLNESS: Patient is a 49-year-old male with past medical history of depression, bipolar disorder, anxiety, history of hepatitis C, tobacco use, IV drug use who presented to [facility] after feeling as though he was not safe at home and after saying he "overdosed" on a "bunch of trazodone" 300 mg. UDS was positive for amphetamines and cannabinoids. He admits to using IV heroin and Winter frequently and last day of use was the night of admission. He states he "took a bunch of pills" with the intent to harm himself. He states he has been hanging out with a lot of the wrong people who do drugs and this has left him to downward spiral with his drug use. He has been to rehabilitation for times in the past for his IV drug use. He admits to at times feeling depressed but currently denies tearfulness, hopelessness, visual hallucinations, auditory hallucinations, nausea, vomiting, diarrhea, chest pain, shortness of breath, difficulty eating or change in appetite. The patient states he is wanting to move back to [place] to get away from the people he is around currently and get back into rehabilitation if possible. He was admitted to [facility] for unspecified depressive disorder, suicide attempt/suicidal ideations. REVIEW OF SYSTEMS: CONSTITUTIONAL: Denies lack of energy, unexplained weight gain or weight loss, loss of appetite, fever, night sweats EYES: Denies eye drainage, eye pain, visual changes, dry/irritated eye EARS, NOSE, MOUTH, THROAT: Denies difficulty hearing, ringing in ears, mouth sores, loose teeth, sore throat, facial numbness or pain NECK: Denies swollen glands CARDIOVASCULAR: Denies irregular heartbeat, racing heart, chest pains, swelling of feet or legs, pain in legs with walking RESPIRATORY: Denies shortness of breath, night sweats, wheezing, sputum production, oxygen at home, coughing up blood, cough lasting > 1 month GASTROINTESTINAL: Denies abdominal pain, constipation, bloody stool, diarrhea, heartburn, nausea, vomiting GENITOURINARY: Denies painful urination, bloody urine, frequent urination, urgency, leaking urine, impotence MUSCULOSKELETAL: Denies joint pain, muscle pain, leg swelling INTEGUMENTARY: Denies rash, itching, new skin lesion, change in existing skin lesion, hair loss or increase, breast changes. NEUROLOGICAL: Denies headaches, dizziness, difficulty walking, numbness or tingling PSYCHIATRIC: Denies mood swings, hallucinations PAST MEDICAL HISTORY: 1. IV drug use 2. Hx of Hep C, was told it resolved on its own 3. Tobacco use 4. Depression 5. Anxiety 6. Bipolar disorder PAST SURGICAL HISTORY: 1. Appendectomy FAMILY HISTORY: Father: , cause unknown Mother: , cause unknown SOCIAL HISTORY: Smokes 1/2 PPD for 30 years, denies alcohol use. Uses IV Winter and amphetamines regularly, last use 02/03/20. Unemployed, lives alone. No PCP or behavioral health specialist to follow ALLERGIES: Please see below. HOME MEDICATIONS: Please see below. PHYSICAL EXAMINATION: VS: please see below CONSTITUTIONAL: No acute distress, resting comfortably, AAO x 3 EYES: PERRLA, EOM intact HENT, MOUTH: Normocephalic, atraumatic, moist mucous membranes, NECK: SUPPLE, no JVD, no lymphadenopathy, no carotid bruit CV: Regular rate and rhythm, S1S2 normal, no murmurs/rubs/gallops RESPIRATORY: Clear to auscultation bilaterally, no rales/rhonchi/wheezes GI: BS positive in 4 quadrants, soft, nontender, nondistended, no rebound or guarding, no organomegaly : Deferred MUSCULOSKELETAL: Normal ROM. No cyanosis, clubbing, swelling, joint deformity, extremity edema INTEGUMENTARY: Intact, no rashes, no lesions, no erythema NEUROLOGIC: Cranial Nerves II-XII are intact, no focal deficits PSYCHIATRIC: Mood and affect are normal LABORATORY DATA: Please see below IMAGING: None ASSESSMENT: 49-year-old male with past medical history of depression, bipolar disorder, anxiety, history of hepatitis C, tobacco use, IV drug use admitted for unspecified depressive disorder, suicidal attempt/suicidal ideations. PLAN: 1. Unspecified depressive disorder, suicidal attempt/suicidal ideations. -Plan per psychiatry team. 2. Hx of anxiety/bipolar disorder. -Plan per psychiatry team. 3. Hx of Hep C, IV drug abuse. -Elevated AST/ALT -States that "it took care of itself". -Will order hep panel -If hepatitis panel abnormal, would consider him to follow up with o/p ID and needing to establish with PCP 4. Tobacco use. -Nicotine patch DISPOSITION: Thank you kindly for the consult for this patient. Will follow up on hepatitis panel during this admission, if abnormal will make suggestions for follow up/treatment. Will sign off on needing to see daily, as his issues are primarily psych focused. If we are needed further, please call at any time. Vital Signs Vital Signs Date Time Temp Pulse Resp B/P (MAP) Pulse Ox O2 Delivery O2 Flow Rate FiO2 02/04/20 06:23 97.3 58 16 144/90 (108) 02/03/20 20:48 Room Air 02/03/20 20:25 99 Home Medications Scheduled Bupropion Hcl (Bupropion Xl) 150 Mg Tab.er.24h, 150 MG PO DAILY PATIENT STATES TAKES BID Quetiapine Fumarate (Quetiapine Fumarate) 200 Mg Tablet, 200 MG PO QHS Trazodone HCl (Trazodone HCl) 100 Mg Tablet, 100 MG PO QHS PATIENT STATES TAKES 300MG Scheduled PRN Albuterol Sulfate (Albuterol Sulfate Hfa) 8.5 Gm Hfa.aer.ad, 2 PUFFS PO Q4-6HP PRN for SHORTNESS OF BREATH Allergies Coded Allergies: No Known Allergies (Unverified , 08/29/18) A-FIB/CHADSVASC A-FIB History Current/History of A-Fib/PAF?: No Current PO Anticoag Therapy: No Age/Risk Factor Scoring CHADSVASC: CHADSVASC Response (Comments) Value Age Risk Factor Age < 65 years old 0 Gender Risk Factor Male 0 Hx of CHF No 0 Hx of HTN No 0 Hx of Stroke/TIA/or VTE No 0 Hx of Diabetes No 0 Hx of Vascular Disease No 0 Total 0 Treatment Treatment ordered: NONE Margarita Baker MD Feb 04, 2020 12:48
[2020-02-04 14:01] LABS: HEPATITIS B SURFACE ANTIGEN NEGATIVE (NEGATIVE)
[2020-02-04 14:28] LABS: HEPATITIS B CORE ANTIBODY IGM NEGATIVE (NEGATIVE)
[2020-02-04 14:30] LABS: HEPATITIS A ANTIBODY IGM NEGATIVE (NEGATIVE)
[2020-02-04 14:43] LABS: HEPATITIS C VIRUS ABY INDEX > 11.0 INDEX (<0.8)
--- NOTE | 2020-02-04 16:44 | MHHPEPDOC ---
General Date Of Admission: Feb 03, 2020 Legal Status: 9.39 Chief Complaint "I got upset when my daughter uninvited me to Thanksgiving and I used again". History of Present Illness HISTORY OF THE PRESENT ILLNESS: Patient is a 49 -year-old , Unemployed/Disabled, Domiciled , male, who is familiar to this facility for similar complaints. Patient on this occasion, presented to the ED for suici amanuel ideaiton, after he reportedly took an overdose after he was uninvited to Thanksgiving dinner and was feeling alone. Patient recently finished a 21 day rehab at [facility] and he would like to return there stating, "I need to stay away from [place]." Psychiatric Review of Systems Depression (2 or more weeks): depressed mood, anhedonia, feelings of excess/guilt, feelings of worthlesness, suicidal thoughts Britney (4 or more days of): denies Psychosis: denies PTSD: denies Anxiety: denies Past Psychiatric History Previous Psychiatric Diagnosis: Unspecified Depressive Disorder, Unspecified mood disorder, adjustment disorder, Bipolar Disorder Previous Psychiatric Admissions: 20+ admissions since 2018 Suicide Attempts: attempt by gunshot, numerous overdoses Psychiatric Follow-up: [facility] Psychiatric medications: Abilify Past Medical History Medical Problems IV Drug Use History of Hep C Tobacco Use Surgery: Appendectomy allergies NKDA Head Injury: No Seizures: No Hospitalizations: Yes Surgeries: Yes Family Medical/Psychiatric HX Medical Problems Father - [place] Mother - COPD Maternal Uncle - Schizophrenia Nephew had completed suicide in 2017 Psychiatric Disorders: Yes Addiction: Yes Suicide Attemps/Completions: Yes Addiction History nicotine, amphetamines, heroin Social History Childhood: Born in [place], [place], both parents are . Has 2 brothers and a sister, he is the third child. Reports no development or issues Abuse/Trauma: denies Current Living Situation: living alone Education: [facility] Employment: not employed Social Support: he reports none Legal: history of nursing home for attempted burglary Marital: Mental Status Examination General Appearance: disheveled, ds/not appear stated age (appears older), hospital scubs/clothing Build: thin Demeanor: average Eye Contact: average Activity: average Behavior: cooperative Speech: clear, normal volume, reg/rate,rhythm,volume Mood: depressed, anxious Affect: constricted Thought Process: logical/linear Thought Content (Delusions): none reported Thought Content (Other): none reported Thought Content (Aggressive): none reported Perception (Hallucinations): none reported Perception (Other): none reported Cognition (Impairment of): none reported Cognition(Intelligence Est.): average Oriented: Awake, Alert, Oriented times three Insight: fair Judgment: Fair Psychosis: Denies Diagnoses Unspecified Depressive Disorder Amphetamine Use Disorder Cannabis Use Disorder Tobacco Use Disorder Has previously been diagnosed with Bipolar Disorder, per patient's report A-FIB/CHADSVASC A-FIB History Current/History of A-Fib/PAF?: No Current PO Anticoag Therapy: No Assessment Patient is currently denying suicidal ideation but reports moderate depression. He wants to return to [facility]. We will try to accommodate this request and discharge when he is stable Initial Treatment Plan 1. Patient was admitted on a [9.39] status. 2. Complete history was obtained. 3. With patients permission, family will be contacted and database will be expanded. 4. Patients medication regimen will be reviewed and changed accordingly. 5. Patient will be provided with protected environment. 6. Patient will be treated with individual, group, and milieu therapies. 7. Patient will receive supportive psych-education. 8. Discharge planning will commence immediately. 9. Outpatient follow-up treatment will be strongly recommended. 10. The initial treatment plan will focus initially on: * Depression. * Risk for suicide. ESTIMATED LENGTH OF STAY: 3-5 DAYS. TIME SPENT COUNSELING AND COORDINATING INITIAL CARE: 60 minutes. Vital Signs Vital Signs Date Time Temp Pulse Resp B/P (MAP) Pulse Ox O2 Delivery O2 Flow Rate FiO2 02/04/20 06:23 97.3 58 16 144/90 (108) 02/03/20 20:48 Room Air 02/03/20 20:25 99 Medications Scheduled Bupropion HCl (Bupropion HCl Sr) 150 Mg Tab.sr.12h, 150 MG PO BID for Depression Quetiapine Fumarate (Quetiapine Fumarate) 200 Mg Tablet, 200 MG PO QHS, (Reported) Trazodone HCl (Trazodone HCl) 100 Mg Tablet, 100 MG PO QHS for Insomnia PATIENT STATES TAKES 300MG Scheduled PRN Albuterol Sulfate (Albuterol Sulfate Hfa) 8.5 Gm Hfa.aer.ad, 2 PUFFS PO Q4-6HP PRN for SHORTNESS OF BREATH, (Reported) Allergies Coded Allergies: No Known Allergies (Unverified , 08/29/18) MARIANA BHAKTA NP Feb 04, 2020 16:44
[2020-02-04 18:00] VITALS: BP 137/87
[2020-02-04] MEDS ORDERED: traZODone 100 MG TAB PO PRN (21:00)
[2020-02-04] MEDS ORDERED: QUEtiapine FUMARATE 200 MG TAB PO SCH (21:00)
[2020-02-05 06:30] VITALS: BP 133/79
[2020-02-05] MEDS ORDERED: buPROPion **XL** TABLET 150MG (WELLBUTRIN XL) PO SCH (09:00)
[2020-02-05] MEDS ORDERED: TRAZ-257 PO (11:01)
[2020-02-05] MEDS ORDERED: BUPR1TAB53 PO (11:01)
--- NOTE | 2020-02-05 14:24 | MHDSPDOC ---
[facility] Discharge Summary Discharge Summary DATE OF ADMISSION: Feb 03, 2020 at 18:27 DATE OF DISCHARGE: Feb 05, 2020 at 13:05 DISCHARGE DIAGNOSES: 1.Unspecified Depressive Disorder 2. Amphetamine Use Disorder 3. Cannabis Use Disorder 4. Tobacco Use Disorder REASON FOR ADMISSION: Patient is a 49 -year-old , Unemployed/Disabled, Domiciled , male, who is familiar to this facility for similar complaints. Patient on this occasion, presented to the ED for suicidal ideaiton, after he reportedly took an overdose after he was uninvited to Thanksgiving dinner and was feeling alone. Patient recently finished a 21 day rehab at [facility] and he would like to return there stating, "I need to stay away from [place]." He was reporting the following symptoms in the ED: depressed mood, anhedonia, feelings of excess/guilt, feelings of worthlessness, suicidal thoughts CONSULTANTS INVOLVED: See Medical H + P by Hospitalist TREATMENT AND PROGRESS ON THE UNIT: Patient was admitted to the [facility] on a 39 legal status he was afforded the following treatment modalities: 1) Individual Therapy 2) Group Therapy 3) Medication Management 4) Milieu Therapy 5) Safe Environment HOSPITAL COURSE: Patient was admitted to [facility] on a 9.39. Patient is well-known to this facility of similar complaints. He recently finished a a 21 day rehab at [facility] and he would like to return there stating, "I need to stay away from [place]." He requested to return to [facility] but they do not have a bed currently. Patient was engaged on the unit, social with peers, compliant with treatment. DISCHARGE ASSESSMENT: In today's interview, patient is alert and oriented, calm and cooperative. He smiles on approach and states that he wants to be discharged. He denied depressive symptoms today, reporting that depressive symptoms occur when he uses or is withdrawing. He denies suicidal/homicidal t hinking, ideation or intent. Patient appears to be euthymic in mood and affect. When I spoke to the patient about transferring to [facility], patient stated he wants to go home today. I reinforced that he may relapse. Patient was not willing to wait a few days for him to go door to door, reducing the likelihood that he would go back to engaging in substance abuse. His possibility of substance use and abuse has been discussed, but patient states that if he should relapse that it is choice. At this time, I will discharge the patient as he is not presenting with any abnormal psychiatric symptoms that would facilitate an involuntary admission. MENTAL STATUS EXAMINATION ON DISCHARGE: Patient is a 49 -year-old , Unemployed/Disabled, Domiciled , male, who is familiar to this facility for similar complaints. Patient on this occasion, presented to the ED for suicidal ideaiton, after he reportedly took an overdose of Winter. General Appearance: disheveled, ds/not appear stated age (appears older), hospital scrubs/clothing Build: thin Demeanor: average Eye Contact: average Activity: average Behavior: cooperative Speech: clear, normal volume, reg/rate,rhythm,volume Mood: denies depressed and anxious, euthymic Affect: euthymic mood and affect Thought Process: logical/linear Thought Content (Delusions): none reported Thought Content (Other): none reported Thought Content (Aggressive): none reported Perception (Hallucinations): none reported Perception (Other): none reported Cognition (Impairment of): none reported Cognition(Intelligence Est.): average Oriented: Awake, Alert, Oriented times three Insight: fair Judgment: Fair Psychosis: Denies MEDICATIONS ON DISCHARGE: All home medications were restarted. Patient requested a renewal of Bupropion SR 150 mg twice daily PLAN/FOLLOWUP ARRANGEMENTS: Patient is returning home at his request and will follow up with [facility] The amount of time spent in the coordination of care for this patient was approximately 25 minutes. Vital Signs/I&Os Vital Signs Date Time Temp Pulse Resp B/P (MAP) Pulse Ox O2 Delivery O2 Flow Rate FiO2 02/05/20 06:30 97.5 61 16 133/79 (97) 02/03/20 20:48 Room Air 02/03/20 20:25 99 Medications Scheduled Bupropion HCl (Bupropion HCl Sr) 150 Mg Tab.sr.12h, 150 MG PO BID for Depression, #14 Quetiapine Fumarate (Quetiapine Fumarate) 200 Mg Tablet, 200 MG PO QHS, (Reported) Trazodone HCl (Trazodone HCl) 100 Mg Tablet, 100 MG PO QHS for Insomnia, #7 PATIENT STATES TAKES 300MG Scheduled PRN Albuterol Sulfate (Albuterol Sulfate Hfa) 8.5 Gm Hfa.aer.ad, 2 PUFFS PO Q4-6HP PRN for SHORTNESS OF BREATH, (Reported) Allergies Coded Allergies: No Known Allergies (Unverified , 08/29/18) MARIANA BHAKTA NP Feb 05, 2020 14:04
== END 2020-02-05 13:05 | disposition home or self-care (01) | DRG 754 ==
LOC: M ED 15:52 → M ED INP 02-03 18:27 → M PSY 02-03 20:43
PROVIDERS: ADMIT Psychiatry & Neurology Addiction Medicine; ATTEND Psychiatry & Neurology Psychiatry
DX: F32.9 Major depressive disorder, single episode, unspecified (principal); F15.10 Other stimulant abuse, uncomplicated; F12.10 Cannabis abuse, uncomplicated; F17.200 Nicotine dependence, unspecified, uncomplicated; Z81.8 Family history of other mental and behavioral disorders; Z91.5 Personal history of self-harm; Z79.899 Other long term (current) drug therapy; T43.212A Poisoning by selective serotonin and norepinephrine reuptake inhibitors, intentional self-harm, initial encounter; Z20.828 Contact with and (suspected) exposure to other viral communicable diseases

== ENCOUNTER 2020-02-16 07:52 | Emergency (ER) | payer MEDICAID, OTHER ==
[~2020-02-16] VITALS: Ht 165.1 cm; Wt 61.4 kg
[~2020-02-16 07:52] MED LIST changes: +ALBU8.5H PO; +BUPR150T3 PO; +BUPR1TAB53 PO
[2020-02-16 08:53] LABS: HEMATOCRIT 44.6 % (42.0-52.0); HEMOGLOBIN 15.2 g/dl (13.5-17.5); MEAN CORPUSCULAR HEMOGLOBIN 29.4 pg (27.0-33.0); MEAN CORPUSCULAR HGB CONC 34.1 g/dl (32.0-36.5); MEAN CORPUSCULAR VOLUME 86.3 fl (80.0-96.0); PLATELET COUNT, AUTOMATED 373 10^3/uL (150-450); RED BLOOD COUNT 5.17 10^6/uL (4.30-6.10); WHITE BLOOD COUNT 7.7 10^3/uL (4.0-10.0)
[2020-02-16 09:19] LABS: AMPHETAMINES LEVEL URINE NEGATIVE (NEGATIVE); BARBITURATES URINE NEGATIVE (NEGATIVE); BENZODIAZEPINES URINE NEGATIVE (NEGATIVE); CANNABINOIDS URINE NEGATIVE (NEGATIVE); COCAINE METABOLITE URINE NEGATIVE (NEGATIVE); METHADONE URINE NEGATIVE (NEGATIVE); OPIATES URINE NEGATIVE (NEGATIVE); PHENCYCLIDINE URINE NEGATIVE (NEGATIVE)
[2020-02-16 09:30] LABS: ACETAMINOPHEN LEVEL < 2.0 UG/ML (10.0-30.0); ALBUMIN 3.7 GM/DL (3.2-5.2); ALT/SGPT 111 U/L (12-78); BILIRUBIN,DIRECT 0.2 MG/DL (0.0-0.2); BILIRUBIN,TOTAL 0.6 MG/DL (0.2-1.0); BLOOD UREA NITROGEN 15 MG/DL (7-18); CALCIUM LEVEL 8.8 MG/DL (8.5-10.1); CARBON DIOXIDE LEVEL 27 MEQ/L (21-32); CHLORIDE LEVEL 108 MEQ/L (98-107); CPK CREATINE PHOSPHOKINASE 128 U/L (39-308); CREATININE FOR GFR 0.98 MG/DL (0.70-1.30); ETHYL ALCOHOL (ETHANOL) < 0.003 % (0.000-0.010); GLOMERULAR FILTRATION RATE > 60.0 (>60); GLUCOSE, FASTING 92 MG/DL (70-100); POTASSIUM SERUM 4.1 MEQ/L (3.5-5.1); SALICYLATE LEVEL 1.7 MG/DL (5.0-30.0); SODIUM LEVEL 141 MEQ/L (136-145); TOTAL PROTEIN 7.6 GM/DL (6.4-8.2)
--- NOTE | 2020-02-16 09:31 | REP ---
INDICATION: wrist ?abscess. COMPARISON: None. TECHNIQUE: Real-time sonographic evaluation of the left wrist soft tissues performed at the site of swelling. FINDINGS: Scattered edema is seen in the soft tissues of the left wrist. No focal fluid collection or abscess is seen. IMPRESSION: Soft tissue edema without evidence of fluid collection or abscess. <Electronically signed by Odilon Gonzalez > 02/16/20 0928
[2020-02-16 12:28] LABS: RSV AMPLIFICATION NEGATIVE (NEGATIVE)
[2020-02-16 17:27] VITALS: BP 122/78
--- NOTE | 2020-02-16 18:11 | ECGEPIP ---
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
== END 2020-02-16 17:29 ==
LOC: M ED 07:52
DX: R45.851 Suicidal ideations (principal); F33.9 Major depressive disorder, recurrent, unspecified; B19.20 Unspecified viral hepatitis C without hepatic coma; Z79.899 Other long term (current) drug therapy; F11.20 Opioid dependence, uncomplicated; F17.210 Nicotine dependence, cigarettes, uncomplicated
CPT/HCPCS: 36415; 76882; 80048; 80076; 80307; 81001; 82550; 84443; 85027; 87631; 93005; 99284; G0480

== ENCOUNTER 2020-03-18 20:47 | Emergency (ER) | payer OTHER ==
[~2020-03-18 20:47] MED LIST changes: -BUPR150T3 PO; +BUPR150T4 PO; +GABA-282 PO; -GABA-843 PO
--- OUTSIDE RECORDS SUMMARY | 2020-03-18 20:54 | CCD ---
Author Author Hunter Alaniz Organization Unknown Address [address] [address] Phone Care Team Providers Care Package Drier Name Role Phone Keely Alaniz PCP Allergies, Adverse Reactions, Alerts No Data in Section Problem List No Data in Section Medications No Data in Section Social History Social History Element Description Concept Effective Date Smoking Status Unknown if ever smoked [id number] Immunizations No Data in Section Vital Signs No Data in Section Procedures Date Concept Id Description Targeted Site Concept Targeted Site Concept Type 02/11/2020 84231 Extended Individual Psychotherapy - 45 min CPT Patient has no history of implantable de vices Encounters Encounter Start Date End Date Encounter Type Description Diagnosis Di agnosis Desc Location Author First Name Author Last Name Npid Taxonomy Cod e Taxonomy Desc Phone Number Location Addr1 Location Addr2 Location [facility] Location Sta Location [facility] [id number] 02/11/2020 02/11/2020 08254 Extended Individual Psych otherapy - [address] [facility] Corbin Keely [id number] [phone] [address] [place], [place] [address] [facility] [id number] Plan of Treatment No Data in Section Lab Results No Data in Section Instructions No Data in Section Insurance Providers Insurance Id Policy Effective Date Policy Thru Date Company N janny [id number] 2018 [id number]
--- OUTSIDE RECORDS SUMMARY | 2020-03-18 20:54 | CCD ---
Author RIVERA Garrison Autogen erated Organization [facility] Address Unknown Phone Unavailable Care Team Providers Care Telephoto Installer Name Role Phone Elena Myers AdmittingPractitioner1 Steffanie Baxter AttendingPractitioner1 Nimo Ruth AttendingPractitioner1 Geovanni Ledezma AdmittingPractitioner1 Allergies No Known Allergy Information Encounters No Known Encounters Immunizations No Known Immunizations Lab Results Result Type Result Value Date Glucose SerPl-mCnc 81 mg/dL [place] Sep 20 13:38:00 EDT 2020 BUN SerPl-mCnc 17 mg/dL Sun Se p 20 13:38:00 EDT 2020 Creat SerPl-mCnc 0.89 mg/dL Sun Sep 20 13:38:00 EDT 2020 GFR/BSA.pred SerPlBld MDRD-ArVRat 100 mL/ min/1.73m2 Sun Sep 20 13:38:00 EDT 2020 GFR/BSA pred.black SerPlBld MDRD-ArVRat 116 mL/min/1.73m2 Sun Sep 20 13:38:00 EDT 2020 BUN/Creat SerPl NOT APPLICABLE (calc) Sun Sep 20 13:38:00 EDT 2020 Sodium SerPl-sCnc 139 mmol/L Sun Sep 20 13:38:00 EDT 2020 Potassium SerPl-sCnc 4.5 mmol/L Sun Sep 20 13:38:00 EDT 2020 Chloride SerPl-sCnc 103 mmol/L S un Sep 20 13:38:00 EDT 2020 CO2 SerPl-sCnc 28 mmol/L Sun Se p 20 13:38:00 EDT 2020 Calcium SerPl-mCnc 8.9 mg/dL [place] Sep 20 13:38:00 EDT 2020 Prot SerPl-mCnc 6.7 g/dL Sun S ep 20 13:38:00 EDT 2020 Albumin SerPl-mCnc 4.0 g/dL [place] Sep 20 13:38:00 EDT 2020 Globulin Ser Calc-mCnc 2.7 g/dL (calc) Sun Sep 20 13:38:00 EDT 2020 Albumin/Glob SerPl 1.5 (calc) [place] Sep 20 13:38:00 EDT 2020 Bilirub SerPl-mCnc 0.6 mg/dL [place] Sep 20 13:38:00 EDT 2020 ALP SerPl-cCnc 81 U/L Sun Se p 20 13:38:00 EDT 2020 AST SerPl-cCnc 190 U/L Sun Se p 20 13:38:00 EDT 2020 ALT SerPl-cCnc 238 U/L Sun Se p 20 13:38:00 EDT 2020 Color Ur YELLOW Sun Sep 20 1 3:38:00 EDT 2020 Appearance Ur TURBID Sun Sep 20 13:38:00 EDT 2020 Sp Gr Ur Strip 1.003 Sun Se p 20 13:38:00 EDT 2020 pH Ur Strip 6.0 Sun Sep 2 0 13:38:00 EDT 2020 Glucose Ur Ql Strip NEGATIVE S un Sep 20 13:38:00 EDT 2020 Bilirub Ur Ql Strip NEGATIVE S un Sep 20 13:38:00 EDT 2020 Ketones Ur Ql Strip NEGATIVE S un Sep 20 13:38:00 EDT 2020 Hgb Ur Ql Strip NEGATIVE Sun S ep 20 13:38:00 EDT 2020 Prot Ur Ql Strip NEGATIVE Sun Sep 20 13:38:00 EDT 2020 Nitrite Ur Ql Strip NEGATIVE S un Sep 20 13:38:00 EDT 2020 Leukocyte esterase Ur Ql Strip NEGATIVE Sun Sep 20 13:38:00 EDT 2020 WBC #/area UrnS HPF 0-5 /HPF S un Sep 20 13:38:00 EDT 2020 RBC #/area UrnS HPF 0-2 /HPF S un Sep 20 13:38:00 EDT 2020 Squamous #/area UrnS HPF 0-5 /HPF Sun Sep 20 13:38:00 EDT 2020 Trans Cells #/area UrnS HPF DNR /HPF Sun Sep 20 13:38:00 EDT 2020 Renal Epi Cells #/area UrnS HPF DNR /HPF Sun Sep 20 13:38:00 EDT 2020 Bacteria #/area UrnS HPF NONE SEEN /HPF Sun Sep 20 13:38:00 EDT 2020 CaOx Cry #/area UrnS HPF FEW /HPF Sun Sep 20 13:38:00 EDT 2020 Tri-Phos Cry #/area UrnS HPF DNR /HPF Sun Sep 20 13:38:00 EDT 2020 Urate Cry #/area UrnS HPF DNR /HPF Sun Sep 20 13:38:00 EDT 2020 Amorph Sed UrnS Ql Micro MANY /HPF Sun Sep 20 13:38:00 EDT 2020 Crystals #/area UrnS HPF DNR /HPF Sun Sep 20 13:38:00 EDT 2020 Hyaline Casts #/area UrnS LPF NONE SEEN / LPF Sun Sep 20 13:38:00 EDT 2020 Gran Casts #/area UrnS LPF DNR /LPF Sun Sep 20 13:38:00 EDT 2020 Casts #/area UrnS LPF DNR /LPF Sun Sep 20 13:38:00 EDT 2020 Yeast #/area UrnS HPF DNR /HPF Sun Sep 20 13:38:00 EDT 2020 Service Cmnt XXX-Imp DNR Sun Sep 20 13:38:00 EDT 2020 WBC # Bld Auto 5.4 Thousand/uL S un Sep 20 13:38:00 EDT 2019 RBC # Bld Auto 4.75 Million/uL S un Sep 20 13:38:00 EDT 2020 Hgb Bld-mCnc 13.8 g/dL Sun Sep 20 13:38:00 EDT 2020 Hct VFr Bld Auto 41.6 % Sun Sep 20 13:38:00 EDT 2020 MCV RBC Auto 87.6 fL Sun Sep 20 13:38:00 EDT 2020 MCH RBC Qn Auto 29.1 pg Sun S ep 20 13:38:00 EDT 2020 MCHC RBC Auto-mCnc 33.2 g/dL [place] Sep 20 13:38:00 EDT 2020 RDW RBC Auto-Rto 12.9 % Sun Sep 20 13:38:00 EDT 2020 Platelet # Bld Auto 363 Thousand/uL Sun Sep 20 13:38:00 EDT 2020 PMV Bld Humberto-Winston 11.2 fL [place] Sep 20 13:38:00 EDT 2019 Neutrophils # Bld Auto 3067 cells/uL Sun Sep 20 13:38:00 EDT 2020 Neuts Band # Bld DNR cells/uL [place] Sep 20 13:38:00 EDT 2020 Metamyelocytes # Bld DNR cells/uL Sun Sep 20 13:38:00 EDT 2020 Myelocytes # Bld DNR cells/uL [place] Sep 20 13:38:00 EDT 2020 Promyelocytes # Bld DNR cells/uL Sun Sep 20 13:38:00 EDT 2020 Lymphocytes # Bld Auto 1447 cells/uL Sun Sep 20 13:38:00 EDT 2020 Monocytes # Bld Auto 734 cells/uL Sun Sep 20 13:38:00 EDT 2020 Eosinophil # Bld Auto 103 cells/uL Sun Sep 20 13:38:00 EDT 2020 Basophils # Bld Auto 49 cells/uL Sun Sep 20 13:38:00 EDT 2020 Blasts # Bld DNR cells/uL Sun Se p 20 13:38:00 EDT 2020 nRBC # Bld DNR cells/uL Sun Sep 20 13:38:00 EDT 2020 Neutrophils/leuk NFr Bld Auto 56.8 % Sun Sep 20 13:38:00 EDT 2020 Neuts Band/leuk NFr Bld Manual DNR % Sun Sep 20 13:38:00 EDT 2020 Metamyelocytes/leuk NFr Bld Manual DNR % Sun Sep 20 13:38:00 EDT 2020 Myelocytes/leuk NFr Bld Manual DNR % Sun Sep 20 13:38:00 EDT 2020 Promyelocytes/leuk NFr Bld Manual DNR % Sun Sep 20 13:38:00 EDT 2020 Lymphocytes/leuk NFr Bld Auto 26.8 % Sun Sep 20 13:38:00 EDT 2020 Variant Lymphs/leuk NFr Bld DNR % Sun Sep 20 13:38:00 EDT 2020 Monocytes/leuk NFr Bld Auto 13.6 % Sun Sep 20 13:38:00 EDT 2020 Eosinophil/leuk NFr Bld Auto 1.9 % Sun Sep 20 13:38:00 EDT 2020 Basophils/leuk NFr Bld Auto 0.9 % Sun Sep 20 13:38:00 EDT 2020 Blasts/leuk NFr Bld Manual DNR % Sun Sep 20 13:38:00 EDT 2020 nRBC/100 WBC Bld-Rto DNR /100 WBC Sun Sep 20 13:38:00 EDT 2020 Service Cmnt XXX-Imp DNR Sun Sep 20 13:38:00 EDT 2020 HCV Ab SerPl Ql IA REACTIVE [place] Sep 20 13:38:00 EDT 2020 HCV Ab s/co SerPl IA 31.40 Sun Nov 20 13:38:00 EDT 2020 QUESTION/PROBLEM: [place] Nov 13 18:15:00 EDT 2019 QUESTION: [place] Nov 13 18:15:00 EDT 2019 CONTACT: [place] Nov 13 1 8:15:00 EDT 2019 RESOLUTION: [facility] 1 3 18:15:00 EDT 2019 RPR Ser Ql NON-REACTIVE Sun Sep 20 13:38:00 EDT 2019 M TB IFN-g Bld-Imp NEGATIVE [place] Sep 20 13:38:00 EDT 2019 Gamma interferon background Bld IA-aCnc 0 .07 IU/mL Sun Sep 20 13:38:00 EDT 2020 Mitogen IGNF bckgrd cor Bld-aCnc >10.00 I U/mL Sun Sep 20 13:38:00 EDT 2019 M TB IFN-g CD4+ bckgrnd cor Bld-aCnc 0.01 IU/mL Sun Sep 20 13:38:00 EDT 2020 M TB IFN-g CD4+CD8+ bckgrnd cor Bld-aCnc 0.01 IU/mL Sun Sep 20 13:38:00 EDT 2020 HCV RNA SerPl CONNOR+probe-aCnc Sun Sep 13 18:15:00 EDT 2020 HCV RNA SerPl CONNOR+probe-Log IU Sun Sep 13 18:15:00 EDT 2020 HCV RNA SerPl CONNOR+probe-aCnc Mon Sep 14 16:09:00 EDT 2020 HCV RNA SerPl CONNOR+probe-Log IU [facility] Sep 14 16:09:00 EDT 2020 HCV RNA SerPl CONNOR+probe-aCnc [facility] Sep 15 13:32:00 EDT 2020 HCV RNA SerPl CONNOR+probe-Log IU [facility] Sep 15 13:32:00 EDT 2020 HCV RNA SerPl CONNOR+probe-aCnc [id number] IU/mL Sun Sep 20 13:38:00 EDT 2020 HCV RNA SerPl CONNOR+probe-Log IU 5.08 Log I U/mL Sun Sep 20 13:38:00 EDT 2020 COMMENT Sun Sep 20 13 :38:00 EDT 2020 Medications No Known Medication Information Problems Active Concerns * Severe amphetamine substance dependence * Code: [id number] * Start Date: MonJan 06 07:00:00 EST 2020 * Text: * Addiction/Abstinence/Withdrawal * Code: USER-Addiction * Start Date: MonJan 08 07:00:00 EST 2020 * Text: * Biomedical * Code: USER-Biomedical * Start Date: MonJan 06 07:00:00 EST 2020 * Text: * Emotional/Behavioral/State of Change * Code: USER-Emotional * Start Date: MonJan 06 07:00:00 EST 2020 * Text: * Social/Interpersonal/Recovery Environment * Code: USER-Social * Start Date: MonJan 06 07:00:00 EST 2020 * Text: * Family * Code: USER-Family * Start Date: MonJan 06 07:00:00 EST 2020 * Text: Procedures No Known Procedures Social History Social History Observation Description Gregory e Smoking Status Current Every Da y Smoker MonNov 14 08:00:00 EDT 2019 Smoking Status Current Every Da y Smoker MonNov 14 08:00:00 EDT 2019 Smoking Status Current Every Da y Smoker MonNov 14 08:00:00 EDT 2019 Smoking Status Current Every Da y Smoker MonNov 14 08:00:00 EDT 2019 Smoking Status Current Every Da y Smoker MonNov 14 08:00:00 EDT 2019 Smoking Status Unknown If Ever Smoked MonJan 10 07:00:00 EST 2017 Sex Male MonJun 01 07:00:00 EST 1970 Vital Signs Vital Sign Measurement Date Temperature 98.9 [DEGF] MonJan 06 13:29:00 EST 2019 Temperature 37.2 ESTUARDO Mon 0 3 13:29:00 EST 2019 Heart Rate 121 /MIN MonJan 06 13:29:00 EST 2019 Respiration 18 /MIN Mon 0 3 13:29:00 EST 2019 SpO2 98 % MonJan 06 13:29 :00 EST 2019 Systolic 108 MM[HG] Mon 03 1 3:29:00 EST 2019 Diastolic 69 MM[HG] Mon 03 13:29:00 EST 2019 BP Position 2 Position Mon Nov 0 3 13:29:00 EST 2019 Temperature 98.0 [DEGF] Sat Sep 12 05:16:00 EDT 2020 Temperature 36.7 ESTUARDO Sat Sep 1 2 05:16:00 EDT 2020 Heart Rate 66 /MIN Sat Sep 12 05:16:00 EDT 2020 Respiration 12 /MIN Sat Sep 1 2 05:16:00 EDT 2020 Systolic 102 MM[HG] Sat Sep 12 0 5:16:00 EDT 2020 Diastolic 66 MM[HG] Sat Sep 12 05:16:00 EDT 2020 BP Position 1 Position Sat Sep 1 2 05:16:00 EDT 2019 Temperature 98.0 [DEGF] Fri Sep 11 15:17:00 EDT 2019 Temperature 36.7 ESTUARDO Fri Sep 1 1 15:17:00 EDT 2019 Heart Rate 81 /MIN Fri Sep 11 15:17:00 EDT 2019 Respiration 18 /MIN Fri Sep 1 1 15:17:00 EDT 2019 SpO2 96 % Fri Sep 11 15:17 :00 EDT 2019 Systolic 126 MM[HG] Fri Sep 11 1 5:17:00 EDT 2019 Diastolic 82 MM[HG] Fri Sep 11 15:17:00 EDT 2019 BP Position 2 Position Fri Sep 1 1 15:17:00 EDT 2019
--- OUTSIDE RECORDS SUMMARY | 2020-03-18 20:54 | CCD ---
Author RIVERA [facility] Address [address] [place] [address] Care Team Providers Care Swedish Masseuse Name Role Phone DebbiecindySamiElena AdmittingPractitioner1 Steffanie Baxter AttendingPractitioner1 Nimo Ruth AttendingPractitioner1 [...] Thousand/uL S un Sep 20 13:38:00 EDT 2020 RBC # Bld Auto 4.75 Million/uL S [...] fL [place] Sep 20 13:38:00 EDT 2020 Neutrophils # Bld Auto 3067 cells/uL Sun [...] 2020 HCV Ab SerPl Ql IA REACTIVE [place] Sep 20 13:38:00 EDT 2020 HCV Ab s/co SerPl IA 31.40 Sun Sep 20 13:38:00 EDT 2020 QUESTION/PROBLEM: Sun Sep 18:15:00 EDT 2019 QUESTION: Sun Nov 16 18:15:00 EDT 2020 CONTACT: [place] Nov 13 1 8:15:00 EDT 2019 RESOLUTION: [place] 1 3 18:15:00 EDT 2019 RPR Ser Ql NON-REACTIVE Sun Sep 13:38:00 EDT 2020 M TB IFN-g Bld-Imp NEGATIVE [place] Sep 20 13:38:00 EDT 2020 Gamma interferon background Bld IA-aCnc 0 .07 IU/mL Sun Sep 13:38:00 EDT 2019 Mitogen IGNF bckgrd cor Bld-aCnc >10.00 I U/mL Sun Sep 13:38:00 EDT 2019 M TB IFN-g CD4+ bckgrnd cor Bld-aCnc 0.01 IU/mL Sun Sep 13:38:00 EDT 2019 M TB IFN-g CD4+CD8+ bckgrnd cor Bld-aCnc 0.01 IU/mL Sun Sep 20 13:38:00 EDT 2019 HCV RNA SerPl CONNOR+probe-aCnc Sun Sep 13 18:15:00 EDT 2019 HCV RNA SerPl CONNOR+probe-Log IU Sun Sep 13 18:15:00 EDT 2019 HCV RNA SerPl CONNOR+probe-aCnc Mon Sep 14 16:09:00 EDT 2019 HCV RNA SerPl CONNOR+probe-Log IU [facility] Sep 14 16:09:00 EDT 2019 HCV RNA SerPl CONNOR+probe-aCnc e Sep 15 13:32:00 EDT 2019 HCV RNA SerPl CONNOR+probe-Log IU e Sep 15 13:32:00 EDT 2019 HCV RNA SerPl CONNOR+probe-aCnc [id number] IU/mL Sun Sep 20 13:38:00 EDT 2020 HCV RNA SerPl CONNOR+probe-Log IU 5.08 Log I U/mL Sun Sep 20 13:38:00 EDT 2020 COMMENT Sun Sep 20 13 :38:00 EDT 2020 Medications No Known Medication Information Problems Active Concerns * Severe amphetamine substance dependence * Code: [id number] * Start Date: MonJan 06 07:00:00 EST 2019 * Text: Procedures No Known Procedures Social History Social History Observation Description Gregory e Smoking Status Current Every Da y Smoker Mon Sep 11 08:00:00 EDT 2019 Smoking Status Current Every Da y Smoker Mon Sep 11 08:00:00 EDT 2019 Smoking Status Current Every Da y Smoker Mon Sep 08:00:00 EDT 2019 Smoking Status Current Every Da y Smoker Mon Sep 11 08:00:00 EDT 2019 Smoking Status Current Every Da y Smoker Mon Sep 11 08:00:00 EDT 2019 Smoking Status Unknown If Ever Smoked MonJan 10 07:00:00 EST 2018 Sex Male MonJun 01 07:00:00 EST 1970 Vital Signs Vital Sign Measurement Date Temperature 98.9 [DEGF] MonJan 06 13:29:00 EST 2020 Temperature 37.2 ESTUARDO Mon 0 3 13:29:00 EST 2019 Heart Rate 121 /MIN MonJan 06 13:29:00 EST 2020 Respiration 18 /MIN Mon 0 3 13:29:00 EST 2020 SpO2 98 % MonJan 06 13:29 :00 EST 2020 Systolic 108 MM[HG] MonJan 06 1 3:29:00 EST 2020 Diastolic 69 MM[HG] MonJan 06 13:29:00 EST 2019 BP Position 2 Position Mon 3 13:29:00 EST 2020 Temperature 98.0 [DEGF] Sat Sep 12 05:16:00 [...] Position Sat Sep 1 2 05:16:00 EDT 2020 Temperature 98.0 [DEGF] Fri Sep 11 15:17:00 EDT 2020 Temperature 36.7 ESTUARDO Fri Sep 1 1 15:17:00 EDT 2020 Heart Rate 81 /MIN Fri Sep 11 15:17:00 EDT 2020 Respiration 18 /MIN Fri Sep 1 1 15:17:00 EDT 2020 SpO2 96 % Fri Sep 11 15:17 :00 EDT 2020 Systolic 126 MM[HG] Fri Sep 11 1 5:17:00 EDT 2020 Diastolic 82 MM[HG] Fri Sep 11 15:17:00 EDT 2020 BP Position 2 Position Fri Sep 1 1 15:17:00 EDT 2019
--- OUTSIDE RECORDS SUMMARY | 2020-03-18 20:54 | CCD ---
Author RIVERA Garrison Autogen erated Organization [facility] Address Unknown Phone Unavailable Care Team Providers Care E Commerce Marketing Manager Name Role Phone Elena Myers AdmittingPractitioner1 Steffanie [...] Sun Nov 20 13:38:00 EDT 2020 QUESTION/PROBLEM: [place] Nov 13 18:15:00 EDT 2019 QUESTION: [place] Nov 13 18:15:00 EDT 2019 CONTACT: [place] Nov 13 1 8:15:00 EDT 2019 RESOLUTION: [facility] 1 3 18:15:00 EDT 2019 RPR Ser [...] EDT 2020 HCV RNA SerPl CONNOR+probe-Log IU [facility] Sep 14 16:09:00 EDT 2020 HCV RNA SerPl CONNOR+probe-aCnc [facility] Sep 15 13:32:00 EDT 2020 HCV RNA SerPl CONNOR+probe-Log IU [facility] Sep 15 13:32:00 EDT 2020 HCV RNA SerPl CONNOR+probe-aCnc [id number] IU/mL Sun Sep 20 13:38:00 EDT 2020 HCV RNA SerPl CONNOR+probe-Log IU 5.08 Log I U/mL Sun Sep 20 13:38:00 EDT 2020 COMMENT Sun Sep 20 13 :38:00 EDT 2020 Medications No Known Medication Information Problems Active Concerns * Severe amphetamine substance dependence * Code: [id number] * Start Date: MonJan 06 07:00:00 EST [...]
--- OUTSIDE RECORDS SUMMARY | 2020-03-18 20:54 | CCD ---
Author RIVERA Garrison Autogen erated Organization [facility] Address Unknown Phone Unavailable Care Team Providers Care Orthotics Assistant Name Role Phone Elena Myers AdmittingPractitioner1 Steffanie [...] Sun Nov 20 13:38:00 EDT 2020 QUESTION/PROBLEM: [place] Nov 13 18:15:00 EDT 2019 QUESTION: [place] Nov 13 18:15:00 EDT 2019 CONTACT: [place] Nov 13 1 8:15:00 EDT 2019 RESOLUTION: [facility] 1 3 18:15:00 EDT 2019 RPR Ser [...] EDT 2020 HCV RNA SerPl CONNOR+probe-Log IU [facility] Sep 14 16:09:00 EDT 2020 HCV RNA SerPl CONNOR+probe-aCnc [facility] Sep 15 13:32:00 EDT 2020 HCV RNA SerPl CONNOR+probe-Log IU [facility] Sep 15 13:32:00 EDT 2020 HCV RNA SerPl CONNOR+probe-aCnc [id number] IU/mL Sun Sep 20 13:38:00 EDT 2020 HCV RNA SerPl CONNOR+probe-Log IU 5.08 Log I U/mL Sun Sep 20 13:38:00 EDT 2020 COMMENT Sun Sep 20 13 :38:00 EDT 2020 Medications No Known Medication Information Problems Active Concerns * Severe amphetamine substance dependence * Code: [id number] * Start Date: MonJan 06 07:00:00 EST 2020 * Text: * Addiction/Abstinence/Withdrawal * Code: USER-Addiction * Start Date: MonJan 08 07:00:00 EST 2020 * Text: * Biomedical * Code: USER-Biomedical * Start Date: MonJan 06 07:00:00 EST 2019 * Text: * Emotional/Behavioral/State of Change * [...] 13:29 :00 EST 2019 Systolic 108 MM[HG] MonJan 06 1 3:29:00 EST 2019 Diastolic 69 MM[HG] MonJan 06 13:29:00 EST 2019 BP Position 2 Position Mon 0 3 13:29:00 EST 2019 Temperature 98.0 [DEGF] Sat Sep 12 05:16:00 EDT 2019 Temperature 36.7 ESTUARDO Sat Sep 1 2 05:16:00 EDT 2019 Heart Rate 66 /MIN Sat Sep 12 [...]
--- OUTSIDE RECORDS SUMMARY | 2020-03-18 20:54 | CCD ---
Author RIVERA Garrison Autogen erated Organization [facility] Address Unknown Phone Unavailable Care Team Providers Care Manager Field Name Role Phone Elena Myers AdmittingPractitioner1 Steffanie [...] Sun Nov 20 13:38:00 EDT 2020 QUESTION/PROBLEM: [place] Nov 13 18:15:00 EDT 2019 QUESTION: [place] Nov 13 18:15:00 EDT 2019 CONTACT: [place] Nov 13 1 8:15:00 EDT 2019 RESOLUTION: [facility] 1 3 18:15:00 EDT 2019 RPR [...] 13 18:15:00 EDT 2020 HCV RNA SerPl OCNNOR+probe-Log IU Sun Sep 13 18:15:00 EDT 2020 HCV RNA SerPl CONNOR+probe-aCnc Mon Sep 14 16:09:00 EDT 2020 HCV RNA SerPl CONNOR+probe-Log IU [facility] Sep 14 16:09:00 EDT 2020 HCV RNA SerPl CONNOR+probe-aCnc [facility] Sep 15 13:32:00 EDT 2020 HCV RNA SerPl CONNOR+probe-Log IU [facility] Sep 15 13:32:00 EDT 2020 HCV RNA SerPl CONNOR+probe-aCnc [id number] IU/mL Sun Sep 20 13:38:00 EDT 2020 HCV RNA SerPl CONNOR+probe-Log IU 5.08 Log I U/mL Sun Sep 20 13:38:00 EDT 2020 COMMENT Sun Sep 20 13 :38:00 EDT 2020 Medications No Known Medication Information Problems Active Concerns * Severe amphetamine substance dependence * Code: [id number] * Start Date: MonJan 06 07:00:00 EST [...]
--- OUTSIDE RECORDS SUMMARY | 2020-03-18 20:54 | CCD ---
Author RIVERA Garrison Autogen erated Organization [facility] Address Unknown Phone Unavailable Care Team Providers Care Paradi Operator Name Role Phone Steffanie Baxter AttendingPractitioner1 Geovanni Ledezma AdmittingPractitioner1 Allergies No Known [...] XXX-Imp DNR Sun Sep 20 13:38:00 EDT 2019 WBC # Bld Auto 5.4 Thousand/uL S un Sep 13:38:00 EDT 2019 RBC # Bld Auto 4.75 Million/uL S un Sep 13:38:00 EDT 2019 Hgb Bld-mCnc 13.8 g/dL Sun Sep 13:38:00 EDT 2020 Hct VFr Bld Auto 41.6 % Sun Sep 13:38:00 EDT 2020 MCV RBC Auto 87.6 fL Sun Sep 20 13:38:00 EDT 2020 MCH RBC Qn Auto 29.1 pg Sun S ep 20 13:38:00 EDT 2019 MCHC RBC Auto-mCnc 33.2 g/dL [place] Sep 13:38:00 EDT 2019 RDW RBC Auto-Rto 12.9 % Sun Sep 13:38:00 EDT 2019 Platelet # Bld Auto 363 Thousand/uL Sun Sep 20 13:38:00 EDT 2020 PMV Bld Humberto-Winston 11.2 fL [place] Sep 20 13:38:00 EDT 2020 Neutrophils # Bld Auto 3067 cells/uL Sun Sep 20 13:38:00 EDT 2020 Neuts Band # Bld DNR cells/uL [place] Sep 20 13:38:00 EDT 2020 Metamyelocytes # Bld DNR cells/uL Sun Sep 20 13:38:00 EDT 2019 Myelocytes # Bld DNR cells/uL [place] [...] IA 31.40 Sun Sep 20 13:38:00 EDT 2019 QUESTION/PROBLEM: Sun Sep 13 18:15:00 EDT 2019 QUESTION: Sun Sep 13 18:15:00 EDT 2019 CONTACT: [place] Nov 13 1 8:15:00 EDT 2019 RESOLUTION: [place] Nov 1 3 18:15:00 EDT 2019 RPR Ser Ql NON-REACTIVE Sun Sep 20 13:38:00 EDT 2019 M TB IFN-g Bld-Imp NEGATIVE [place] Sep 20 13:38:00 EDT 2019 Gamma interferon background Bld IA-aCnc 0 .07 IU/mL Sun Sep 20 13:38:00 EDT 2019 Mitogen IGNF bckgrd cor Bld-aCnc >10.00 I U/mL Sun Sep 20 13:38:00 EDT 2020 M TB IFN-g CD4+ bckgrnd cor Bld-aCnc [...] EDT 2019 HCV RNA SerPl CONNOR+probe-Log IU [facility] Sep 14 16:09:00 EDT 2019 HCV RNA SerPl CONNOR+probe-aCnc e Sep 15 13:32:00 EDT 2019 HCV RNA SerPl CONNOR+probe-Log IU [facility] Sep 15 13:32:00 EDT 2019 HCV RNA SerPl CONNOR+probe-aCnc [id number] IU/mL Sun Sep 20 13:38:00 EDT 2019 HCV RNA SerPl CONNOR+probe-Log IU 5.08 Log I U/mL Sun Sep 20 13:38:00 EDT 2019 COMMENT [place] Sep 20 13 :38:00 EDT 2020 Medications No Known Medication Information Problems No Known Problems Procedures No Known Procedures Social History Social [...] 2017 Sex Male MonJun 01 07:00:00 EST 1971 Vital Signs Vital Sign Measurement Date Temperature 98.0 [DEGF] Sat Sep 12 05:16:00 EDT 2020 Temperature 36.7 ESTUARDO Sat Sep 1 2 05:16:00 EDT 2020 Heart Rate 66 /MIN Sat Sep 12 05:16:00 EDT 2019 Respiration 12 /MIN Sat Sep 1 2 [...] Position Fri Sep 1 1 15:17:00 EDT 2020
--- OUTSIDE RECORDS SUMMARY | 2020-03-18 20:54 | CCD ---
Author RIVERA Garrison Autogen erated Organization [facility] Address Unknown Phone Unavailable Care Team Providers Care Founder Chairman And Chief Creative Officer Name Role Phone Elena Myers AdmittingPractitioner1 Steffanie [...] Sun Nov 20 13:38:00 EDT 2020 QUESTION/PROBLEM: [place] Nov 13 18:15:00 EDT 2019 QUESTION: [place] Nov 13 18:15:00 EDT 2019 CONTACT: [place] Nov 13 1 8:15:00 EDT 2019 RESOLUTION: [facility] 1 3 18:15:00 EDT 2019 RPR [...] EDT 2020 HCV RNA SerPl CONNOR+probe-Log IU [facility] Sep 14 16:09:00 EDT 2020 HCV RNA SerPl CONNOR+probe-aCnc [facility] Sep 15 13:32:00 EDT 2020 HCV RNA SerPl CONNOR+probe-Log IU [facility] Sep 15 13:32:00 EDT 2020 HCV RNA SerPl CONNOR+probe-aCnc [id number] IU/mL Sun Sep 20 13:38:00 EDT 2020 HCV RNA SerPl CONNOR+probe-Log IU 5.08 Log I U/mL Sun Sep 20 13:38:00 EDT 2020 COMMENT Sun Sep 20 13 :38:00 EDT 2020 Medications No Known Medication Information Problems Active Concerns * Severe amphetamine substance dependence * Code: [id number] * Start Date: MonJan 06 07:00:00 EST [...]
--- OUTSIDE RECORDS SUMMARY | 2020-03-18 20:54 | CCD ---
Author RIVERA Garrison Autogen erated Organization [facility] Address Unknown Phone Unavailable Care Team Providers Care Bench Machine Operator Name Role Phone Elena Myers AdmittingPractitioner1 Steffanie [...] Sun Nov 20 13:38:00 EDT 2020 QUESTION/PROBLEM: [place] Nov 13 18:15:00 EDT 2019 QUESTION: [place] Nov 13 18:15:00 EDT 2019 CONTACT: [place] Nov 13 1 8:15:00 EDT 2019 RESOLUTION: [facility] 1 3 18:15:00 EDT 2019 [...] IU/mL Sun Sep 20 13:38:00 EDT 2019 M TB IFN-g CD4+CD8+ bckgrnd cor Bld-aCnc 0.01 IU/mL Sun Sep 20 13:38:00 EDT 2020 HCV RNA SerPl CONNOR+probe-aCnc Sun Sep 13 18:15:00 EDT 2020 HCV RNA SerPl CONNOR+probe-Log IU Sun Sep 13 18:15:00 EDT 2020 HCV RNA SerPl CONNOR+probe-aCnc Mon Sep 14 16:09:00 EDT 2020 HCV RNA SerPl CONNOR+probe-Log IU [facility] Sep 14 16:09:00 EDT 2020 HCV RNA SerPl CONNOR+probe-aCnc [facility] Sep 15 13:32:00 EDT 2020 HCV RNA SerPl CONNOR+probe-Log IU [facility] Sep 15 13:32:00 EDT 2020 HCV RNA SerPl CONNOR+probe-aCnc [id number] IU/mL Sun Sep 20 13:38:00 EDT 2020 HCV RNA SerPl CONNOR+probe-Log IU 5.08 Log I U/mL Sun Sep 20 13:38:00 EDT 2020 COMMENT [place] Sep 20 13 :38:00 EDT 2020 Medications No Known Medication Information Problems Active Concerns * Severe amphetamine substance dependence * Code: [id number] * Start Date: MonJan 06 07:00:00 EST 2020 * Text: Procedures No Known Procedures Social History Social History Observation Description Gregory e Smoking Status Current Every Da y Smoker Fri Sep 11 08:00:00 EDT 2019 Smoking Status Current Every Da y Smoker Fri Sep 11 08:00:00 EDT 2019 Smoking Status Current Every Da y Smoker Fri Sep 11 08:00:00 EDT 2019 Smoking Status Unknown If Ever Smoked MonJan 10 07:00:00 EST 2018 Sex Male MonJun 01 07:00:00 EST 1971 [...]
--- OUTSIDE RECORDS SUMMARY | 2020-03-18 20:54 | CCD ---
Author Author RIVERA MARTINEZ Organization [facility] Address [address] [place] [id number] Care Team Providers Care Milk Pasteurizer Name Role Phone Lucia Elena AdmittingPractitioner1 Steffanie Baxter AttendingPractitioner1 Nimo Ruth AttendingPractitioner1 Geovanni Ledezma AdmittingPractitioner1 Allergies No Known Allergy Information Encounters Program Name Primary Diagnosis Admission Date/ Time Discharge Date/Time [facility] MonNov 14 13:44:00 EDT 2019Nov 15 09:47:00 EDT 2020 [facility] [place] MonJan 06 12:00:00 EST 2020 [facility] MonFeb 20 10:30:00 EST 2020 [facility] Amphetamine use disorder, severe [place] Jan 01 11:42:00 EDT 2019Jan 07 08:10:00 EST 2020 Immunizations No Known Immunizations Lab Results Result Type Result Value Date Glucose SerPl-mCnc 81 mg/dL [place] Nov 23 13:38:00 EDT 2019 BUN SerPl-mCnc 17 mg/dL Mon p 13:38:00 EDT 2020 Creat SerPl-mCnc 0.89 mg/dL MonNov 23 13:38:00 EDT 2020 GFR/BSA.pred SerPlBld MDRD-ArVRat 100 mL/ min/1.73m2 Sun Sep 13:38:00 EDT 2020 GFR/BSA pred.black SerPlBld MDRD-ArVRat 116 mL/min/1.73m2 Sun Sep 13:38:00 EDT 2020 BUN/Creat SerPl NOT APPLICABLE (calc) Mon Sep 13:38:00 EDT 2019 Sodium SerPl-sCnc 139 mmol/L Sun Sep 13:38:00 EDT 2020 Potassium SerPl-sCnc 4.5 mmol/L [...] g/dL [place] Sep 20 13:38:00 EDT 2019 RDW RBC Auto-Rto 12.9 [...] NFr Bld Auto 0.9 % Sun Sep 13:38:00 EDT 2020 Blasts/leuk NFr Bld Manual DNR % Sun Sep 13:38:00 EDT 2019 nRBC/100 WBC Bld-Rto DNR /100 WBC Sun Sep 13:38:00 EDT 2019 Service Cmnt XXX-Imp DNR Sun Sep 20 13:38:00 EDT 2019 HCV Ab SerPl Ql IA REACTIVE [place] Sep 20 13:38:00 EDT 2019 HCV Ab s/co SerPl IA 31.40 Sun Sep 20 13:38:00 EDT 2019 QUESTION/PROBLEM: Sun Sep 13 18:15:00 EDT 2019 QUESTION: Sun Sep 13 18:15:00 EDT 2019 CONTACT: [place] Nov 13 1 8:15:00 EDT 2019 RESOLUTION: [place] Nov 1 3 18:15:00 EDT 2019 RPR Ser Ql NON-REACTIVE Sun Nov 23 13:38:00 EDT 2020 M TB IFN-g Bld-Imp NEGATIVE [place] Sep 13:38:00 EDT 2019 Gamma interferon background Bld IA-aCnc 0 .07 IU/mL Sun Sep 20 13:38:00 EDT 2019 [employer]ogen IGNF bckgrd cor Bld-aCnc >10.00 I U/mL Sun Sep 13:38:00 EDT 2020 M TB IFN-g CD4+ bckgrnd cor Bld-aCnc 0.01 IU/mL Sun Sep 13:38:00 EDT 2020 M TB IFN-g CD4+CD8+ bckgrnd cor Bld-aCnc 0.01 IU/mL Sun Sep 20 13:38:00 EDT 2019 HCV RNA SerPl CONNOR+probe-aCnc Sun Sep 13 18:15:00 EDT 2019 HCV RNA SerPl CONNOR+probe-Log IU Sun Sep 13 18:15:00 EDT 2020 HCV RNA SerPl CONNOR+probe-aCnc Mon Sep 14 16:09:00 EDT 2020 HCV RNA SerPl CONNOR+probe-Log IU Mon Sep 14 16:09:00 EDT 2019 HCV RNA SerPl CONNOR+probe-aCnc e Sep 15 13:32:00 EDT 2019 HCV RNA SerPl CONNOR+probe-Log IU e Sep 15 13:32:00 EDT 2019 HCV RNA SerPl CONNOR+probe-aCnc [id number] IU/mL Sun Sep 20 13:38:00 EDT 2019 HCV RNA SerPl CONNOR+probe-Log IU 5.08 Log I U/mL MonNov 23 13:38:00 EDT 2019 COMMENT MonNov 23 13 :38:00 EDT 2019 Medications No Known Medication Information Problems Active Concerns * Severe amphetamine substance dependence * Code: [id number] * Start Date: MonJan 06 07:00:00 EST 2020 * Text: * Addiction/Abstinence/Withdrawal * Code: USER-Addiction * Start Date: MonJan 08 07:00:00 EST 2020 * Text: * Biomedical * Code: USER-Biomedical * Start Date: MonJan 06 07:00:00 EST 2020 * Text: * Emotional/Behavioral/State of Change * Code: USER-Emotional * Start Date: MonJan 06 07:00:00 EST 2019 * Text: * Social/Interpersonal/Recovery Environment * Code: [...] 13:29 :00 EST 2019 Systolic 108 MM[HG] Tue Nov 03 1 3:29:00 EST 2019 Diastolic 69 MM[HG] Mon 03 13:29:00 EST 2019 BP Position 2 Position e Jan 0 3 13:29:00 EST 2019 Temperature 98.0 [...]
--- OUTSIDE RECORDS SUMMARY | 2020-03-18 20:54 | CCD ---
Author RIVERA Garrison Autogen erated Organization [facility] Address Unknown Phone Unavailable Care Team Providers Care Wearing Apparel Assembler Name Role Phone Elena Myers AdmittingPractitioner1 Steffanie [...] Sun Nov 20 13:38:00 EDT 2020 QUESTION/PROBLEM: [place] Nov 13 18:15:00 EDT 2019 QUESTION: [place] Nov 13 18:15:00 EDT 2019 CONTACT: [place] Nov 13 1 8:15:00 EDT 2019 RESOLUTION: [facility] 1 3 18:15:00 EDT 2019 RPR Ser [...] EDT 2020 HCV RNA SerPl CONNOR+probe-Log IU [facility] Sep 14 16:09:00 EDT 2020 HCV RNA SerPl CONNOR+probe-aCnc [facility] Sep 15 13:32:00 EDT 2020 HCV RNA SerPl CONNOR+probe-Log IU [facility] Sep 15 13:32:00 EDT 2020 HCV RNA SerPl CONNOR+probe-aCnc [id number] IU/mL Sun Sep 20 13:38:00 EDT 2020 HCV RNA SerPl CONNOR+probe-Log IU 5.08 Log I U/mL Sun Sep 20 13:38:00 EDT 2020 COMMENT Sun Sep 20 13 :38:00 EDT 2020 Medications No Known Medication Information Problems Active Concerns * Severe amphetamine substance dependence * Code: [id number] * Start Date: MonJan 06 07:00:00 EST [...]
--- OUTSIDE RECORDS SUMMARY | 2020-03-18 20:55 | CCD | Summary of Care ---
Author Author [facility] Organization [facility] Address Unknown Phone Unavailable Care Team Providers Care Vice President Safety Name Role Phone Reg Pemberton MD PCP Encounter Details Care Team Description Date Type Department 12/30/2019 [facility] TRANSFER CE NTER Encounter [address] [place] [address] Allergies No Known Allergiesdocumented as of this encounter (statuses as of 01/14/2020) Medications No known medicationsdocumented as of this encounter (statuses as of 01/14/2020) Active Problems Problem Noted Date Suicidal ideation 09/13/2018 Amphetamine abuse 09/13/2018 Opiate abuse, episodic 09/13/2018 Suicide attempt 09/12/2018 Mood disorder 01/10/2018 Substance abuse 01/10/2018 Peritonsillar abscess 03/14/2014 documented as of this encounter (statuses as of 01/14/2020) Social History Date Tobacco Use Types Packs/Day Years Used Current Every Day Smoker Cigarettes 1 15 Smokeless Tobacco: Never Used Drinks/Week oz/Week Comments Alcohol Use No Sex Assigned at Date Recorded Not on file documented as of this encounter Last Filed Vital Signs Not on filedocumented in this encounter Plan of Treatment Health Maintenance Due Date Last Done Comments MMR Vaccines (1 of - 06/02/1971 Standard series) Varicella Vaccines (1 of [birth year]02/1971 2 - 2-dose childhood series) Pneumococcal Vaccine: 1976 Pediatrics (0 to 5 Years) and At-Risk Patients (6 to 64 Years) (1 of 1 - PPSV23) HIV Screening 06/02/1983 DTaP,Tdap,and Td Vaccines 08/10/2018 07/13/2018 (2 - Td) Influenza Vaccine 12/05/2019 11/21/2019, 04/02/2019 Pneumococcal Vaccine: 65+ 06/02/2035 Years (1 of 1 - PPSV23) Hepatitis A Vaccines Aged Out 11/23/2019, No longer eligible based on patient's age to 04/10/2019 complete this topic HIB Vaccines Aged Out No longer eligible based on patient's age to complete this topic Hepatitis B Vaccines Aged Out No longer eligibl e based on patient's age to complete this topic IPV Vaccines Aged Out No longer eligible based on patient's age to complete this topic documented as of this encounter Results Not on filedocumented in this encounter
--- OUTSIDE RECORDS SUMMARY | 2020-03-18 20:55 | CCD ---
Author RIVERA Garrison Autogen erated Organization [facility] Address Unknown Phone Unavailable Care Team Providers Care Inspector Subassemblies Name Role Phone Steffanie Baxter AttendingPractitioner1 Geovanni [...] Sun Sep 13 18:15:00 EDT 2019 CONTACT: [place] Nov 13 1 8:15:00 EDT 2019 RESOLUTION: [place] Nov 1 3 18:15:00 EDT 2019 RPR [...] EDT 2019 HCV RNA SerPl CONNOR+probe-Log IU [facility] Sep 14 16:09:00 EDT 2019 HCV RNA SerPl CONNOR+probe-aCnc e Sep 15 13:32:00 EDT 2019 HCV RNA SerPl CONNOR+probe-Log IU [facility] Sep 15 13:32:00 EDT 2019 HCV RNA SerPl CONNOR+probe-aCnc [id number] IU/mL Sun Sep 20 13:38:00 EDT 2019 HCV RNA SerPl CONNOR+probe-Log IU 5.08 Log I U/mL Sun Sep 20 13:38:00 EDT 2019 COMMENT [place] Sep 20 13 :38:00 EDT 2020 Medications [...]
--- OUTSIDE RECORDS SUMMARY | 2020-03-18 20:55 | CCD ---
Author RIVERA Garrison Autogen erated Organization [facility] Address Unknown Phone Unavailable Care Team Providers Care Piggery Worker Name Role Phone Steffanie Baxter AttendingPractitioner1 Geovanni [...] Sun Sep 13 18:15:00 EDT 2019 CONTACT: [place] Nov 13 1 8:15:00 EDT 2019 RESOLUTION: [place] Nov 1 3 18:15:00 EDT 2019 RPR [...] EDT 2019 HCV RNA SerPl CONNOR+probe-Log IU [facility] Sep 14 16:09:00 EDT 2019 HCV RNA SerPl CONNOR+probe-aCnc e Sep 15 13:32:00 EDT 2019 HCV RNA SerPl CONNOR+probe-Log IU [facility] Sep 15 13:32:00 EDT 2019 HCV RNA SerPl CONNOR+probe-aCnc 260638 IU/mL Sun Sep 20 13:38:00 EDT 2019 HCV RNA SerPl CONNOR+probe-Log IU 5.08 Log I U/mL Sun Sep 20 13:38:00 EDT 2019 COMMENT [place] Sep 20 13 :38:00 EDT 2020 Medications [...]
--- OUTSIDE RECORDS SUMMARY | 2020-03-18 20:57 | CCD ---
Author Author [facility] Organization [facility] Address Unknown Phone Unavailable Support Name Relationship Address Phone Unknown, Unknown Next Of Kin [address] [facility] [address] [place] [address] REFUSED, R Next Of Kin Unknown Unavailable SANDRINE LEONE Next Of Kin [address] [place] [address] Sandrine Leone Next Of Kin Unknown Unavailable YESICA LEONE Next Of Kin [address] [facility] [address] [place] [address] Unavailable Scarlett Nova MD Next Of Kin [address] [place] [address] Katiana Rodríguez Next Of Kin [address] [place] [address] U Next Of Kin Unknown Unavailable SABINO MARIANO Next Of Kin [address] [place] [address] NETO COOPER Next Of Kin [address] [facility], [facility] [address] [place] [address] NAEEM MARTINEZ Next Of Kin [address] [facility], [facility] [address] [place] [address] UE Next Of Kin Unknown Unavailable A R SUPERIOR Next Of Kin [address] [place] [address] LA PAINT Next Of Kin [address] [place] [address] [address] SANDRINE STAFFORD Next Of Kin [address] [place] [address] BALJEET CRUZ [place] [address] ARS Next [place] Kin ? [place] [address] [place] [address] CONTACT, NO Next Of Kin Unknown Care Team Providers Care Logistics Support Name Role Phone Noy Hernandez MD Unavailable Unavailable Hernandez, Noy Vinson MD Unavailable Unavailable Hernandez, Noy Vinson MD Unavailable Unavailable Hernandez, Noy Vinson MD Unavailable Unavailable Hernandez, Noy Vinson MD Unavailable Unavailable Hernandez, Noy Vinson MD Unavailable Unavailable Hernandez, Noy Vinson MD Unavailable Unavailable Hernandez, Noy Vinson MD Unavailable Unavailable Hernandez, Noy Vinson MD Unavailable Unavailable Hernandez, Noy Vinson MD Unavailable Unavailable Hernandez, Noy Vinson MD Unavailable Unavailable Hernandez, Noy Vinson MD Unavailable Unavailable Hernandez, Noy Vinson MD Unavailable Unavailable Hernandez, Noy Vinson MD Unavailable Unavailable Hernandez, Noy Vinson MD Unavailable Unavailable Hernandez, Noy Vinson MD Unavailable Unavailable Hernandez, Noy Vinson MD Unavailable Unavailable Hernandez, Noy Vinson MD Unavailable Unavailable Hernandez, Noy Vinson MD Unavailable Unavailable Hernandez, Noy Vinson MD Unavailable Unavailable Hernandez, Noy Vinson MD Unavailable Unavailable Hernandez, Noy Vinson MD Unavailable Unavailable Hernandez, Noy Vinson MD Unavailable Unavailable Hernandez, Noy Vinson MD Unavailable Unavailable Hernandez, Noy Vinson MD Unavailable Unavailable Hernandez, Noy Vinson MD Unavailable Unavailable Hernandez, Noy Vinson MD Unavailable Unavailable Hernandez, Noy Vnison MD Unavailable Unavailable Hernandez, Noy Vinson MD Unavailable Unavailable Hernandez, Noy Vinson MD Unavailable Unavailable Hernandez, Noy Vinson MD Unavailable Unavailable Hernandez, Noy Vinson MD Unavailable Unavailable Hernandez, Noy Vinson MD Unavailable Unavailable Hernandez, Noy Vinson MD Unavailable Unavailable Hernandez, Noy Vinson MD Unavailable Unavailable Hernandez, Noy Vinson MD Unavailable Unavailable Hernandez, Noy Vinson MD Unavailable Unavailable Hernandez, Noy Vinson MD Unavailable Unavailable Hernandez, Noy Vinson MD Unavailable Unavailable Hernandez, Noy Vinson MD Unavailable Unavailable Hernandez, Noy Vinson MD Unavailable Unavailable Hernandez, Noy Vinson MD Unavailable Unavailable Hernandez, Noy Vinson MD Unavailable Unavailable Hernandez, Noy Vinson MD Unavailable Unavailable Hernandez, Noy Vinson MD Unavailable Unavailable Hernandez, Noy Vinson MD Unavailable Unavailable Hernandez, Noy Vinson MD Unavailable Unavailable REASON, L EDWARD DO Unavailable Unavailable REASON, L EDWARD DO Unavailable Unavailable REASON, L EDWARD DO Unavailable Unavailable REASON, L EDWARD DO Unavailable Unavailable REASON, L EDWARD DO Unavailable Unavailable REASON, L EDWARD DO Unavailable Unavailable REASON, L EDWARD DO Unavailable Unavailable REASON, L EDWARD DO Unavailable Unavailable REASON, L EDWARD DO Unavailable Unavailable REASON, L EDWARD DO Unavailable Unavailable REASON, L EDWARD DO Unavailable Unavailable REASON, L EDWARD DO Unavailable Unavailable REASON, L EDWARD DO Unavailable Unavailable REASON, L EDWARD DO Unavailable Unavailable REASON, L EDWARD DO Unavailable Unavailable REASON, L EDWARD DO Unavailable Unavailable REASON, L EDWARD DO Unavailable Unavailable REASON, L EDWARD DO Unavailable Unavailable REASON, L EDWARD DO Unavailable Unavailable REASON, L EDWARD DO Unavailable Unavailable REASON, L EDWARD DO Unavailable Unavailable REASON, L EDWARD DO Unavailable Unavailable REASON, L EDWARD DO Unavailable Unavailable REASON, L EDWARD DO Unavailable Unavailable REASON, L EDWARD DO Unavailable Unavailable REASON, L EDWARD DO Unavailable Unavailable REASON, L EDWARD DO Unavailable Unavailable REASON, L EDWARD DO Unavailable Unavailable REASON, L EDWARD DO Unavailable Unavailable REASON, L EDWARD DO Unavailable Unavailable REASON, L EDWARD DO Unavailable Unavailable REASON, L EDWARD DO Unavailable Unavailable REASON, L EDWARD DO Unavailable Unavailable REASON, L EDWARD DO Unavailable Unavailable REASON, L EDWARD DO Unavailable Unavailable REASON, L EDWARD DO Unavailable Unavailable REASON, L EDWARD DO Unavailable Unavailable REASON, L EDWARD DO Unavailable Unavailable REASON, L EDWARD DO Unavailable Unavailable REASON, L EDWARD DO Unavailable Unavailable REASON, L EDWARD DO Unavailable Unavailable REASON, L EDWARD DO Unavailable Unavailable REASON, L EDWARD DO Unavailable Unavailable REASON, L EDWARD DO Unavailable Unavailable REASON, L EDWARD DO Unavailable Unavailable REASON, L EDWARD DO Unavailable Unavailable REASON, L EDWARD DO Unavailable Unavailable REASON, L EDWARD DO Unavailable Unavailable REASON, L EDWARD DO Unavailable Unavailable REASON, L EDWARD DO Unavailable Unavailable REASON, L EDWARD DO Unavailable Unavailable REASON, L EDWARD DO Unavailable Unavailable REASON, L EDWARD DO Unavailable Unavailable REASON, L EDWARD DO Unavailable Unavailable REASON, L EDWARD DO Unavailable Unavailable REASON, L EDWARD DO Unavailable Unavailable REASON, L EDWARD DO Unavailable Unavailable REASON, L EDWARD DO Unavailable Unavailable REASON, L EDWARD DO Unavailable Unavailable REASON, L EDWARD DO Unavailable Unavailable REASON, L EDWARD DO Unavailable Unavailable REASON, L EDWARD DO Unavailable Unavailable REASON, L EDWARD DO Unavailable Unavailable REASON, L EDWARD DO Unavailable Unavailable Ade Cardona MD Unavailable Unavailable Ade Cardona MD Unavailable Unavailable Ade Cardona MD Unavailable Unavailable Ade Cardona MD Unavailable Unavailable Ade Cardona MD Unavailable Unavailable SENDY BALDWIN MD Unavailable Unavailable SENDY BALDWIN MD Unavailable Unavailable SENDY BALDWIN MD Unavailable Unavailable SENDY BALDWIN MD Unavailable Unavailable SENDY BALDWIN MD Unavailable Unavailable SENDY BALDWIN MD Unavailable Unavailable SENDY BALDWIN MD Unavailable Unavailable Katiana Rust OPTICAL SCIENTIST OPTICAL SCIENTIST Unavailable Unavailable Jyotsna Flowers Unavailable Unavailable Milan, M Jess SUPERVISOR [employer] Unavailable Unavailable Milan, M Jess SUPERVISOR CONCR[employer]E [employer]ANT Unavailable Unavailable Milan, M Jess SUPERVISOR CONCR[employer]E BLOCK [employer]ANT Unavailable Unavailable Milan, M Jess SUPERVISOR CONCR[employer]E BLOCK [employer]ANT Unavailable Unavailable Milan, M Jess SUPERVISOR CONCR[employer]E BLOCK [employer]ANT Unavailable Unavailable Milan, M Jess SUPERVISOR CONCRETE BLOCK PLANT Unavailable Unavailable Milan, M Jess SUPERVISOR CONCRETE BLOCK PLANT Unavailable Unavailable Milan, M Jess SUPERVISOR CONCRETE BLOCK PLANT Unavailable Unavailable Milan, M Jess SUPERVISOR CONCRETE BLOCK PLANT Unavailable Unavailable Milan, M Jess SUPERVISOR CONCRETE BLOCK PLANT Unavailable Unavailable Milan, M Jess SUPERVISOR CONCRETE BLOCK PLANT Unavailable Unavailable Milan, M Jess SUPERVISOR CONCRETE BLOCK PLANT Unavailable Unavailable Milan, M Jess SUPERVISOR CONCR[employer]E BLOCK PLANT Unavailable Unavailable Keely Alaniz Unavailable Skylar Baldwin MD Unavailable Unavailable JOHN GARDUNO MD Unavailable Unavailable JOHN GARDUNO MD Unavailable Unavailable JOHN GARDUNO MD Unavailable Unavailable JOHN GARDUNO MD Unavailable Unavailable JOHN GARDUNO MD Unavailable Unavailable JOHN GARDUNO MD Unavailable Unavailable JOHN GARDUNO MD Unavailable Unavailable JOHN GARDUNO MD Unavailable Unavailable JOHN GARDUNO MD Unavailable Unavailable JOHN GARDUNO MD Unavailable Unavailable JOHN GARDUNO MD Unavailable Unavailable JOHN GARDUNO MD Unavailable Unavailable JOHN GARDUNO MD Unavailable Unavailable JOHN GARDUNO MD Unavailable Unavailable JOHN GARDUNO MD Unavailable Unavailable JOHN GARDUNO MD Unavailable Unavailable JOHN GARDUNO MD Unavailable Unavailable JOHN GARDUNO MD Unavailable Unavailable JOHN GARDUNO MD Unavailable Unavailable JOHN GARDUNO MD Unavailable Unavailable JOHN GARDUNO MD Unavailable Unavailable RAYJOHN PICKARD MD Unavailable Unavailable JOHN GARDUNO MD Unavailable Unavailable Alina Marinelli MD Unavailable Unavailable Rosario BROWN MD Unavailable Unavailable Rosario BROWN MD Unavailable Unavailable BAPRosario MCBRIDE MD Unavailable Unavailable BAPRosario MCBRIDE MD Unavailable Unavailable BAPRosario MCBRIDE MD Unavailable Unavailable BAPRosario MCBRIDE MD Unavailable Unavailable BAPRosario MCBRIDE MD Unavailable Unavailable BAPANARosario MD Unavailable Unavailable BAPANARosario MD Unavailable Unavailable BAPANA V CRUZITO SWEET Unavailable Unavailable BAPANARosario MD Unavailable Unavailable Rosario BROWN MD Unavailable Unavailable Rosario BROWN MD Unavailable Unavailable Rosario BROWN MD Unavailable Unavailable BAPRAE, Rosario EAST MD Unavailable Unavailable Rafa, Willam DO Unavailable Unavailable Debordieu Colony, Willam DO Unavailable Unavailable Rafa, Willam DO Unavailable Unavailable Debordieu Colony, Willam DO Unavailable Unavailable Rafa, Willam DO Unavailable Unavailable Shilpa, M Odilon DO Unavailable Unavailable Shilpa, M Odilon DO Unavailable Unavailable Shilpa, M Odilon DO Unavailable Unavailable Shilpa, M Odilon DO Unavailable Unavailable Shilpa, M Odilon DO Unavailable Unavailable Shilpa, M Odilon DO Unavailable Unavailable Shilpa, M Odilon DO Unavailable Unavailable Shilpa, M Odilon DO Unavailable Unavailable Shilpa, M Odilon DO Unavailable Unavailable Shilpa, M Odilon DO Unavailable Unavailable Shilpa, M Odilon DO Unavailable Unavailable Shilpa, M Odilon DO Unavailable Unavailable Shilpa, M Odilon DO Unavailable Unavailable Shilpa, M Odilon DO Unavailable Unavailable Shilpa, M Odilon DO Unavailable Unavailable Shilpa, M Odilon DO Unavailable Unavailable VanessaJovan nicholas MD Unavailable Unavailable VanessaJovan MD Unavailable Unavailable VanessaJovan nicholas MD Unavailable Unavailable VanessaJovan nicholas MD Unavailable Unavailable Jovan Mendez MD Unavailable Unavailable VanessaJovan nicholas MD Unavailable Unavailable VanessaJovan nicholas MD Unavailable Unavailable Franco Multani MD Unavailable Unavailable Althouse, Annia SUPERVISOR CONCRETE BLOCK PLANT Unavailable Unavailable Ade Cardona MD Unavailable Unavailable DOTZLER DO, SARANYA Unavailable Unavailable Alina Marinelli MD Unavailable Unavailable Alina Marinelli MD Unavailable Unavailable Josh Pemberton MD Unavailable Unavailable Josh Pemberton MD Unavailable Unavailable Josh Pemberton MD Unavailable Unavailable Josh Pemberton MD Unavailable Unavailable Josh Pemberton MD Unavailable Unavailable Josh Pemberton MD Unavailable Unavailable Josh Pemberton MD Unavailable Unavailable Josh Pemberton MD Unavailable Unavailable Josh Pemberton MD Unavailable Unavailable Josh Pemberton MD Unavailable Unavailable Josh Pemberton MD Unavailable Unavailable Josh Pemberton MD Unavailable Unavailable Josh Pemberton MD Unavailable Unavailable Josh Pemberton MD Unavailable Unavailable Josh Pemberton MD Unavailable Unavailable Josh Pemberton MD Unavailable Unavailable Josh Pemberton MD Unavailable Unavailable Josh Pemberton MD Unavailable Unavailable Josh Pemberton MD Unavailable Unavailable Josh Pemberton MD Unavailable Unavailable Josh Pemberton MD Unavailable Unavailable Josh Pemberton MD Unavailable Unavailable Josh Pemberton MD Unavailable Unavailable Josh Pemberton MD Unavailable Unavailable Josh Pemberton MD Unavailable Unavailable Josh Pemberton MD Unavailable Unavailable Josh Pemberton MD Unavailable Unavailable Josh Pemberton MD Unavailable Unavailable Josh Pemberton MD Unavailable Unavailable Josh Pemberton MD Unavailable Unavailable Josh Pemberton MD Unavailable Unavailable Josh Pemberton MD Unavailable Unavailable Josh Pemberton MD Unavailable Unavailable Josh Pemberton MD Unavailable Unavailable Josh Pemberton MD Unavailable Unavailable Josh Pemberton MD Unavailable Unavailable Josh Pemberton MD Unavailable Unavailable Josh Pemberton MD Unavailable Unavailable Josh Pemberton MD Unavailable Unavailable Josh Pemberton MD Unavailable Unavailable Josh Pemberton MD Unavailable Unavailable Josh Pemberton MD Unavailable Unavailable Josh Pemberton MD Unavailable Unavailable Josh Pemberton MD Unavailable Unavailable Josh Pemberton MD Unavailable Unavailable Josh Pemberton MD Unavailable Unavailable Josh Pemberton MD Unavailable Unavailable Josh Pemberton MD Unavailable Unavailable Josh Pemberton MD Unavailable Unavailable Josh Pemberton MD Unavailable Unavailable Josh Pemberton MD Unavailable Unavailable Josh Pemberton MD Unavailable Unavailable Josh Pemberton MD Unavailable Unavailable Josh Pemberton MD Unavailable Unavailable Josh Pemberton MD Unavailable Unavailable Josh Pemberton MD Unavailable Unavailable Josh Pemberton MD Unavailable Unavailable Josh Pemberton MD Unavailable Unavailable Josh Pemberton MD Unavailable Unavailable Josh Pemberton MD Unavailable Unavailable Josh Pemberton MD Unavailable Unavailable Josh Pemberton MD Unavailable Unavailable Josh Pemberton MD Unavailable Unavailable Josh Pemberton MD Unavailable Unavailable Josh Pemberton MD Unavailable Unavailable Josh Pemberton MD Unavailable Unavailable Josh Pemberton MD Unavailable Unavailable Josh Pemberton MD Unavailable Unavailable Josh Pemberton MD Unavailable Unavailable Josh Pemberton MD Unavailable Unavailable Josh Pemberton MD Unavailable Unavailable Josh Pemberton MD Unavailable Unavailable Josh Pemberton MD Unavailable Unavailable Josh Pemberton MD Unavailable Unavailable Josh Pemberton MD Unavailable Unavailable Josh Pemberton MD Unavailable Unavailable Josh Pemberton MD Unavailable Unavailable Josh Pemberton MD Unavailable Unavailable Josh Pemberton MD Unavailable Unavailable Josh Pemberton MD Unavailable Unavailable Josh Pemberton MD Unavailable Unavailable Josh Pemberton MD Unavailable Unavailable Josh Pemberton MD Unavailable Unavailable Josh Pemberton MD Unavailable Unavailable Josh Pemberton MD Unavailable Unavailable Josh Pemberton MD Unavailable Unavailable Josh Pemberton MD Unavailable Unavailable Josh Pemberton MD Unavailable Unavailable Josh Pemberton MD Unavailable Unavailable Rebeca NOVA MD Unavailable Unavailable Rebeca NOVA MD Unavailable Unavailable Rebeca NOVA MD Unavailable Unavailable Rebeca NOVA MD Unavailable Unavailable Rebeca NOVA MD Unavailable Unavailable Rebeca NOVA MD Unavailable Unavailable Rebeca NOVA MD Unavailable Unavailable Rebeca NOVA MD Unavailable Unavailable Rebeca NOVA MD Unavailable Unavailable Rebeca NOVA MD Unavailable Unavailable Rebeca NOVA MD Unavailable Unavailable Rebeca NOVA MD Unavailable Unavailable Rebeca NOVA MD Unavailable Unavailable Rebeca NOVA MD Unavailable Unavailable Rebeca NOVA MD Unavailable Unavailable Rebeca NOVA MD Unavailable Unavailable Rebeca NOVA MD Unavailable Unavailable Rebeca NOVA MD Unavailable Unavailable Rebeca NOVA MD Unavailable Unavailable Rebeca NOVA MD Unavailable Unavailable Rebeca NOVA MD Unavailable Unavailable Rebeca NOVA MD Unavailable Unavailable Rebeca NOVA MD Unavailable Unavailable Rebeca NOVA MD Unavailable Unavailable Rebeca NOVA MD Unavailable Unavailable Rebeca NOVA MD Unavailable Unavailable Rebeca NOVA MD Unavailable Unavailable Rebeca NOVA MD Unavailable Unavailable Rebeca NOVA MD Unavailable Unavailable Rebeca NOVA MD Unavailable Unavailable Rebeca NOVA MD Unavailable Unavailable Rebeca NOVA MD Unavailable Unavailable Rebeca NOVA MD Unavailable Unavailable Rebeca NOVA MD Unavailable Unavailable Rebeca NOVA MD Unavailable Unavailable Rebeca NOVA MD Unavailable Unavailable Rebeca NOVA MD Unavailable Unavailable Rebeca NOVA MD Unavailable Unavailable Rebeca NOVA MD Unavailable Unavailable Rebeca NOVA MD Unavailable Unavailable Rebeca NOVA MD Unavailable Unavailable Rebeca NOVA MD Unavailable Unavailable Rebeca NOVA MD Unavailable Unavailable Rebeca NOVA MD Unavailable Unavailable Rebeca NOVA MD Unavailable Unavailable Rebeca NOVA MD Unavailable Unavailable Rebeca NOVA MD Unavailable Unavailable Rebeca NOVA MD Unavailable Unavailable Rebeca NOVA MD Unavailable Unavailable Rebeca NOVA MD Unavailable Unavailable Rebeca NOVA MD Unavailable Unavailable Rebeca NOVA MD Unavailable Unavailable Rebeca NOVA MD Unavailable Unavailable Rebeca NOVA MD Unavailable Unavailable Rebeca NOVA MD Unavailable Unavailable Rebeca NOVA MD Unavailable Unavailable Rebeca NOVA MD Unavailable Unavailable Rebeca NOVA MD Unavailable Unavailable Rebeca NOVA MD Unavailable Unavailable Rebeca NOVA MD Unavailable Unavailable Rebeca NOVA MD Unavailable Unavailable JOSHUA, Rebeca PANTOJA MD Unavailable Unavailable JOSHUA, Rebeca PANTOJA MD Unavailable Unavailable JOSHUA, Rebeca PANTOJA MD Unavailable Unavailable JOSHUA, Rebeca PANTOJA MD Unavailable Unavailable JOSHUA, Rebeca PANTOJA MD Unavailable Unavailable JOSHUA, Rebeca PANTOJA MD Unavailable Unavailable JOSHUA, Rebeca PANTOJA MD Unavailable Unavailable JOSHUA, Rebeca PANTOJA MD Unavailable Unavailable JOSHUA, Rebeca PANTOJA MD Unavailable Unavailable JOSHUA, Rebeca PANTOJA MD Unavailable Unavailable JOSHUA, Rebeca PANTOJA MD Unavailable Unavailable JOSHUA, Rebeca PANTOJA MD Unavailable Unavailable JOSHUA, Rebeca PANTOJA MD Unavailable Unavailable JOSHUA, Rebeca PANTOJA MD Unavailable Unavailable JOSHUA, Rebeca PANTOJA MD Unavailable Unavailable JOSHUA, Rebeca PANTOJA MD Unavailable Unavailable JOSHUA, Rebeca PANTOJA MD Unavailable Unavailable JOSHUA, Rebeca PANTOJA MD Unavailable Unavailable JOSHUA, Rebeca PANTOJA MD Unavailable Unavailable JOSHUA, Rebeca PANTOJA MD Unavailable Unavailable JOSHUA, Rebeca PANTOJA MD Unavailable Unavailable JOSHUA, Rebeca PANTOJA MD Unavailable Unavailable Alina Marinelli MD Unavailable Unavailable Alina Marinelli MD Unavailable Unavailable Alina Marinelli MD Unavailable Unavailable Alina Marinelli MD Unavailable Unavailable Alina Marinelli MD Unavailable Unavailable Jessica, Joseph Linda MD Unavailable Unavaila ble [place], Joseph Linda MD Unavailable Unavaila ble Jessica, Joseph Linda MD Unavailable Unavaila ble Jessica, Joseph Linda MD Unavailable Unavaila ble [place], Joseph Linda MD Unavailable Unavaila ble Jessica, Joseph Linda MD Unavailable Unavaila ble [place], Joseph Linda MD Unavailable Unavaila ble [place], Joseph Linda MD Unavailable Unavaila ble [place], Joseph Linda MD Unavailable Unavaila ble [place], Joseph Linda MD Unavailable Unavaila ble Jessica, Joseph Linda MD Unavailable Unavaila ble Re-disclosure Warning The records that you are about to access may contain information from federally-assisted alcohol or drug abuse programs. If such information is present, then the following federally mandated warning applies: This information has been disclosed to you from records protected by federal confidentiality rules (42 CFR part 2). The federal rules prohibit you from making any further disclosure of this information unless further disclosure is expressly permitted by the written consent of the person to whom it pertains or as otherwise permitted by 42 CFR part 2. A general authorization for the release of medical or other information is NOT sufficient for this purpose. The Federal rules restrict any use of the information to criminally investigate or prosecute any alcohol or drug abuse patient.The records that you are about to access may contain highly sensitive health information, the redisclosure of which is protected by Article 27-F of the [facility] Public Health law. If you continue you may have access to information: Regarding HIV / AIDS; Provided by facilities licensed or operated by the [facility] Office of Mental Health; or Provided by the [facility] Office for People With Developmental Disabilities. If such information is present, then the following [facility] mandated warning applies: This information has been disclosed to you from confidential records which are protected by state law. State law prohibits you from making any further disclosure of this information without the specific written consent of the person to whom it pertains, or as otherwise permitted by law. Any unauthorized further disclosure in violation of state law may result in a fine or assisted sentence or both. A general authorization for the release of medical or other information is NOT sufficient authorization for further disc losure. Allergies and Adverse Reactions Type Description Substance Reaction Status Data Source(s ) Drug allergy Drug allergy No Known Allergies [facility] Drug allergy No Known Allergies No Known Allergies [facility] SYSTEMIC NO KNOWN ALLERGIES NO KNOWN ALLERGIES [facility] Drug Class NO KNOWN ALLERGIES NO KNOWN ALLERGIES [facility] SYSTEMIC NO KNOWN ALLERGIES NO KNOWN ALLERGIES [facility] SYSTEMIC NO ALLERGIES ON FILE NO ALLERGIES ON FILE [facility] Family History Family Member Name Family Member Gender Family Member Status Date o f Status Description Data Source(s) Unknown Unknown Problem [facility] ([facility], ) Encounters Encounter Providers Location Date Indications Data Source(s ) Outpatient Attender: Odilon Massey DO [facility] 11:36:00 AM EST 1ST COVID VACCINE [facility] 1ST COVID VACCINE Inpatient Attender: SENDY Fierro nder: Sendy Baldwin MDAdmitter: Sendy Baldwin MD [facility] 02/24/2020 04:22:00 PM EST PSYCHOACTIVE SUBSTANCE DEPENDENCE [facility] PSYCHOACTIVE SUBSTANCE DEPENDENCE Patient admitted. Unlisted evaluation and management service 02/03 03:30:00 PM EST [facility] ([facility]) Outpatient Attender: Franco Colon MDAdmit ter: Franco Colon MDConsultant: Franco Colon 02/16/2020 07:07:00 PM EST SI with Attempt-R45.8 [facility] SI with Attempt-R45.851 Outpatient Attender: Annia Gonsalez PAdmitter: Franco Colon MDConsultant: Franco Colon 02/16/2020 07:07:00 PM EST SI with Attempt-R45.8 [facility] SI with Attempt-R45.851 Inpatient Attender: Franco Colon MDAdmitter: Franco Colon 02/16/2020 07:07:00 PM EST - 02/24/2020 01:20:00 PM EST SI with Attempt-R45.851 [facility] SI with Attempt-R45.851 Patient discharged. Outpatient Attender: Franco Colon MDAdmit ter: Franco Colon MDConsultant: Franco Colon 02/16/2020 07:07:00 PM EST SI with Attempt-R45.8 51 [facility] SI with Attempt-R45.851 Outpatient Attender: Franco Colon MDAdmit ter: Franco Colon MDConsultant: Franco Colon 02/16/2020 07:07:00 PM EST SI with Attempt-R45.8 51 [facility] SI with Attempt-R45.851 Outpatient Attender: Annia Gonsalez PAdmitter: Franco Colon MDConsultant: Franco Colon 02/16/2020 07:07:00 PM EST SI with Attempt-R45.8 51 [facility] SI with Attempt-R45.851 Outpatient Attender: Annia Gonsalez PAdmitter: Franco Colon MDConsultant: Franco Colon 02/16/2020 07:07:00 PM EST SI with Attempt-R45.8 51 [facility] SI with Attempt-R45.851 Outpatient Attender: Annia Gonsalez PAdmitter: Franco Colon MDConsultant: Franco Colon 02/16/2020 07:07:00 PM EST SI with Attempt-R45.8 51 [facility] SI with Attempt-R45.851 Outpatient Attender: Jess Mccormick mitter: Franco Colon MDConsultant: Franco Colon 02/16/2020 07:07:00 PM EST SI with Attempt-R45.8 51 [facility] SI with Attempt-R45.851 Outpatient Attender: Annia Gonsalez PAdmitter: Franco Multani MDConsultant: Franco Multani MD 02/16/2020 07:07:00 PM EST SI with Attempt-R45.8 51 [facility] SI with Attempt-R45.851 Extended Individual Psychotherapy - 45 min Attender: Cortney Alaniz [facility] 02/11/2020 01:00:00 AM EST - 02/11/2020 01:00:00 AM EST [facility] ([facility]) Attender: Keely Alaniz 02/11/2020 12:00:00 AM EST [facility] ([facility]) Unlisted evaluation and management service 05/2019 05:00:00 PM EST [facility] ([facility]) Unlisted evaluation and management service Performer: Remy hyman 01/02/2020 03:42:00 PM EDT - 01/08/2020 01:10:00 PM EST [facility] ([facility]) IP PSYCH Attender: JOHN GARDUNO MD Attender: SARANYA SAMUELS DOAdmitter: JOHN GARDUNO MD 2E-2A 12/30/2019 09:01:33 PM EDT - 01/03/2020 01:15:00 PM EDT [facility] Patient discharged. Outpatient 12/30/2019 03:25:00 PM EDT depressio n, suicidal ideations [facility] depression, suicidal ideations Outpatient Attender: Reg Pemberton MD 12/17/2019 11:10:01 AM EDT [facility] Outpatient CPSCAORT-LABEJN 11/20/2019 03:16:00 PM EDT [facility] Outpatient Attender: Reg Pemberton MD FP 11/19/2019 09:59:02 AM EDT [facility] Outpatient Attender: Reg Pemberton MD FP 11/18/2019 12:57:00 PM EDT [facility] Outpatient CPSCAORT-LABEJN 11/16/2019 02:33:00 PM EDT [facility] Inpatient Attender: Demetrius Arango snehal: Cabrera Marinelli MDAttender: Cabrera Gates: Demetrius Marinelli MD ED-MSP 11/16/2019 01:25:00 PM EDT - 11/24/2019 11:43:00 AM EDT F19.20 F10.20 [facility] F19.20 F10.20 Patient discharged. Unlisted evaluation and management service 11/15/2019 05:44:00 PM EDT - 11/16/2019 01:47:00 PM EDT [facility]) Outpatient [id number] 11/11/2019 08:22:00 PM EDT S uicidal with a plan to cut wrist. Hx depression. [facility] Suicidal with a plan to cut wrist. Hx d epression. Inpatient Attender: Diana Cardona MDAttender: Diana Cardona MDAttender: Willam Craig DOAdmitter: Diana Cardona MD CPSCAORT-OBSERV 09/25/2019 12:11:00 PM EDT - 09/26/2019 02:31:00 PM EDT OPIOID DEPENDENCE WITHDRAWAL [facility] OPIOID DEPENDENCE WITHDRAWAL Patient discharged. Inpatient Attender: Sendy Fierro nder: SENDY BALDWIN MDAdmitter: SENDY BALDWIN MD CPSCAORT-CHEPPDREH 09/19/2019 01:24:00 PM EDT - 09/25/2019 10:10:00 AM EDT PSYCHOACTIVE SUBSTANCE DEPENDENCE [facility] PSYCHOACTIVE SUBSTANCE DEPENDENCE Patient discharged. Outpatient CPSCAORT-LABEJN 09/12/2019 12:42:00 PM EDT [facility] Outpatient CPSCAORT-LABEJN 09/11/2019 09:34:00 AM EDT [facility] Inpatient Attender: EDPAKO BOBO DOAdmitter: LORI Gonsalez DO ED-MSP 09/10/2019 09:25:00 PM EDT - 09/14/2019 11:14:00 AM EDT F19.20 [facility] F19.20 Patient discharged. Outpatient Attender: MARKEL WEST 08/13/2019 09:07:01 AM EDT [facility] Outpatient Attender: MARKEL WEST 07/19/2019 08:38:00 AM EDT [facility] Outpatient Attender: MARKEL SLAUGHTERP FP 07/18/2019 03:27:01 PM EDT [facility] Outpatient Attender: MARKEL JEAN BAPTISTE FP 07/12/2019 03:12:00 PM EDT [facility] Outpatient Attender: MARKEL JEAN BAPTISTE FP 07/11/2019 11:20:01 AM EDT [facility] Outpatient Attender: SCARLETT NOVA MD FP 07/11/2019 10:05:01 A M EDT [facility] Outpatient Attender: SCARLETT NOVA MD FP 06/13/2019 03:50:00 P M EDT [facility] Outpatient Attender: SCARLETT NOVA MD FP 05/20/2019 09:42:00 A M EDT [facility] Outpatient Attender: SCARLETT NOVA MD FP 05/16/2019 12:42:00 P M EDT [facility] Outpatient Attender: SCARLETT NOVA MD 05/16/2019 12:41:02 P M EDT [facility] Outpatient Attender: SCARLETT NOVA MD 05/10/2019 12:48:00 P M [facility] Outpatient Attender: SCARLETT NOVA MD 05/10/2019 10:31:02 A M EST [facility] IP PSYCH Attender: Alexei moreno MDAdmitter: Alexei Lopez MDConsultant: Jovan Mendez MD 5F-PY 05/09/2019 07:54:18 P M EST - 05/13/2019 01:01:00 PM EDT [facility] Patient discharged. 05/09/2019 03:51:[address] [facility] 05/09/2019 10:58:[address] [facility] 05/09/2019 10:51:[address] [facility] 05/09/2019 10:50:[address] [facility] 05/09/2019 10:48:[address] [facility] Emergency Attender: CRUZITO BROWN MD 2E-ED 07/2019 10:08:05 AM EST - 05/09/2019 07:43:[address] [facility] Patient discharged. 05/09/2019 10:07:[address] [facility] Outpatient Attender: SCARLETT NOVA MD 05/02/2019 10:46:01 A [facility] Outpatient Attender: SCARLETT NOVA MD 04/30/2019 03:24:00 P [facility] Outpatient Attender: SCARLETT NOVA MD 04/15/2019 10:34:00 A [facility] Outpatient Attender: SCARLETT NOVA MD 04/09/2019 12:33:01 P [facility] Outpatient Attender: SCARLETT NOVA MD 04/03/2019 10:05:01 A [facility] Outpatient Attender: SCARLETT NOVA MD 04/01/2019 01:51:06 P [facility] Outpatient Referrer: Karel Hernandez MD 04/01/2019 12:31:00 PM [facility] Inpatient Attender: Sendy Fierro nder: SENDY BALDWIN MDAdmitter: SENDY BALDWIN MD CPSCAORT-CHEPPDREH 04/01/2019 10:35:00 AM [facility] - 04/29/2019 09:13:00 AM [facility] PSYCHOACTIVE SUBSTANCE DEPENDENCE [facility] PSYCHOACTIVE SUBSTANCE DEPENDENCE Patient discharged. Outpatient Attender: SCARLETT NOVA MD 03/29/2019 01:58:00 P [facility] Outpatient Attender: SCARLETT NOVA MD 03/29/2019 10:08:01 A [facility] Outpatient Attender: SCARLETT NOVA MD 03/21/2019 10:22:01 A [facility] Outpatient Attender: SCARLETT NOVA MD 03/20/2019 12:47:01 P [facility] Outpatient Attender: SCARLETT NOVA MD 03/20/2019 12:46:01 P [facility] Outpatient Attender: SCARLETT NOVA MD 03/20/2019 12:45:01 P [facility] Outpatient Attender: SCARLETT NOVA MD 03/20/2019 10:44:00 A [facility] Outpatient Attender: SCARLETT NOVA MD 03/20/2019 10:22:00 A [facility] Outpatient Attender: SCARLETT NOVA MD 03/20/2019 10:21:00 A [facility] Outpatient Attender: SCARLETT NOVA MD 03/20/2019 10:20:00 A [facility] Outpatient Attender: SCARLETT NOVA MD 02/20/2019 01:33:00 P [facility] Outpatient Attender: SCARLETT NOVA MD 02/18/2019 04:04:59 A [facility] Outpatient Attender: SCARLETT NOVA MD 02/15/2019 05:02:00 P [facility] Outpatient Attender: SCARLETT NOVA MD 02/13/2019 11:20:00 A [facility] Outpatient Attender: SCARLETT NOVA MD 02/11/2019 01:46:01 P [facility] Outpatient Attender: SCARLETT NOVA MD 02/10/2019 08:32:01 P [facility] Outpatient Attender: SCARLETT NOVA MD 02/08/2019 11:19:01 A [facility] Outpatient Attender: SCARLETT NOVA MD 02/08/2019 11:18:01 A [facility] Outpatient Attender: SCARLETT NOVA MD 02/01/2019 09:43:02 A [facility] Outpatient Attender: SCARLETT NOVA MD 01/28/2019 09:01:01 A [facility] Outpatient Attender: SCARLETT NOVA MD 01/22/2019 08:57:03 A [facility] Inpatient Attender: Sendy Baldwin MDAtte nder: SENDY BALDWIN MDAdmitter: SENDY BALDWIN MD CPSCAORT-CHEPPDREH 01/10/2019 09:55:00 AM [facility] - 01/31/2019 07:30:00 AM [facility] PSYCHOACTIVE SUBSTANCE DEPENDENCE [facility] PSYCHOACTIVE SUBSTANCE DEPENDENCE Patient discharged. Medications Medication Brand Name Start Date Product Form Dose Route Admi nistrative Instructions Pharmacy Instructions Status Indications Reaction Description Data Source(s) 4-1 mg 10/10/2019 12:00:00 AM EDT film 10 PL[address] 1 FILM UNDER THE TONGUE TWICE A DAY ON AN EMPTY STOMACH - DO NOT EAT OR DRINK FOR 30 MINUTES AFTER TAKING DOSE MAXIMUM DAILY DOSE = [address] 1 FILM UNDER THE TONGUE TWICE A DAY ON AN EMPTY STOMACH - DO NOT EAT OR DRINK FOR 30 MINUTES AFTER TAKING DOSE MAXIMUM DAILY DOSE = 2 FILMS SOLD: 10/10/2019 [facility] 4-1 mg 09/16/2019 12:00:00 AM EDT film 10 PL[address] 1 FILM UNDER THE TONGUE TWICE A DAY ON AN EMPTY STOMACH - DO NOT EAT OR DRINK FOR 30 MINUTES AFTER TAKING DOSE MAXIMUM DAILY DOSE = [address] 1 FILM UNDER THE TONGUE TWICE A DAY ON AN EMPTY STOMACH - DO NOT EAT OR DRINK FOR 30 MINUTES AFTER TAKING DOSE MAXIMUM DAILY DOSE = 2 FILMS SOLD: 09/16/2019 [facility] 40 mg 09/16/2019 12:00:00 AM EDT tablet,delayed release (DR/EC) 30 TAKE ONE TABLET BY MOUTH TWICE A DAY TAKE ONE TABLET BY MOUTH TWICE A DAY SOLD: 09/16/2019 [facility] 21 mg/24 hr 09/16/2019 12:00:00 AM EDT patch 24 hour 28 APPLY 1 PATCH TOPICALLY ONCE DAILY APPLY 1 PATCH TOPICALLY ONCE DAILY SOLD: 09/16/2019 [facility] 4-1 mg 03/23/2019 12:00:00 AM EST film 30 PLACE ONE FILM UNDER THE TONGUE TWICE A DAY, MAXIMUM DAILY DOSE = [address] ONE FILM UNDER THE TONGUE TWICE A DAY, MAXIMUM DAILY DOSE = 2 FILMS SOLD: 03/24/2019 [facility] 150 mg 03/21/2019 12:00:00 AM EST tablet 30 TAKE ONE TABLET BY MOUTH EVERY EVENING TAKE ONE TABLET BY MOUTH EVERY EVENING SOLD: 03/24/2019 [facility] 5 mg 03/21/2019 12:00:00 AM EST tablet 30 TAKE ONE TABLET BY MOUTH EVERY DAY TAKE ONE TABLET BY MOUTH EVERY DAY SOLD: 03/24/2019 [facility] 800 mg 03/20/2019 12:00:00 AM EST tablet 30 TAKE 1 TABLET BY MOUTH EVERY 8 HOURS NEEDED MAXIMUM DAILY DOSE = 3 TAKE 1 TABLET BY MOUTH EVERY 8 HOURS NEEDED MAXIMUM DAILY DOSE = 3 SOLD: 03/24/2019 [facility] 4-1 mg 02/22/2019 12:00:00 AM EST film [address] ONE FILM UNDER THE TONGUE TWICE A DAY, MAXIMUM DAILY DOSE = [address] ONE FILM UNDER THE TONGUE TWICE A DAY, MAXIMUM DAILY DOSE = 2 FILMS SOLD: 02/22/2019 [facility] 5 mg 02/16/2019 12:00:00 AM EST tablet 30 TAKE ONE TABLET BY MOUTH EVERY DAY TAKE ONE TABLET BY MOUTH EVERY DAY SOLD: 02/19/2019 [facility] 150 mg 02/16/2019 12:00:00 AM EST tablet 30 TAKE ONE TABLET BY MOUTH AT BEDTIME TAKE ONE TABLET BY MOUTH AT BEDTIME SOLD: 02/19/2019 [facility] 12-3 mg 02/13/2019 12:00:00 AM EST film 8 PLACE ONE FILM UNDER THE TONGUE EVERY DAY, MAXIMUM DAILY DOSE = [address] ONE FILM UNDER THE TONGUE EVERY DAY, MAXIMUM DAILY DOSE = 1 FILM SOLD: 02/15/2019 [facility] 4 mg/actuation 02/01/2019 12:00:00 AM EST spray,non-aerosol 2 USE DIRECTED FOR SUSPECTED OPIATE OVERDOSE - CALL 911 IF ADMINISTERED USE DIRECTED FOR SUSPECTED OPIATE OVERDOSE - CALL 911 IF ADMINISTERED SOLD: 02/01/2019 [facility] 400 mg (241.3 mg magnesium) 02/01/2019 12:00:00 AM EST table t 7 TAKE ONE TABLET BY MOUTH EVERY DAY AT BEDTIME TAKE ONE TABLET BY MOUTH EVERY DAY AT BEDTIME SOLD: 02/01/2019 [facility] 4-1 mg 02/01/2019 12:00:00 AM EST film 12 [address] ONE FILM UNDER THE TONGUE TWICE A DAY MAXIMUM DAILY DOSE = [address] ONE FILM UNDER THE TONGUE TWICE A DAY MAXIMUM DAILY DOSE = 2 FILMS SOLD: 02/11/2019 [facility] 5 mg 02/01/2019 12:00:00 AM EST tablet 7 TAKE ONE TABLET BY MOUTH EVERY DAY AT BEDTIME TAKE ONE TABLET BY MOUTH EVERY DAY AT BEDTIME SOLD: 02/01/2019 [facility] 150 mg 02/01/2019 12:00:00 AM EST tablet 7 TAKE ONE TABLET BY MOUTH EVERY DAY AT BEDTIME TAKE ONE TABLET BY MOUTH EVERY DAY AT BEDTIME SOLD: 02/01/2019 [facility] 25 mcg (1,000 unit) 02/01/2019 12:00:00 AM EST tablet 14 TAKE ONE TABLET BY MOUTH TWICE A DAY TAKE ONE TABLET BY MOUTH TWICE A DAY SOLD: 02/01/2019 [facility] 4-1 mg 02/01/2019 12:00:00 AM EST film 14 PLACE ONE FILM UNDER THE TONGUE TWICE A DAY MAXIMUM DAILY DOSE = [address] ONE FILM UNDER THE TONGUE TWICE A DAY MAXIMUM DAILY DOSE = 2 FILMS SOLD: 02/01/2019 [facility] 150 mg 02/01/2019 12:00:00 AM EST tablet 7 TAKE ONE TABLET BY MOUTH EVERY DAY AT BEDTIME TAKE ONE TABLET BY MOUTH EVERY DAY AT BEDTIME SOLD: 02/09/2019 [facility] 0.4 mg 02/01/2019 12:00:00 AM EST capsule 7 TAKE ONE CAPSULE BY MOUTH EVERY DAY TAKE ONE CAPSULE BY MOUTH EVERY DAY SOLD: 02/01/2019 [facility] 17 gram/dose 02/01/2019 12:00:00 AM EST powder 238 USE 17 GRAMS TWO TIMES A DAY NEEDED FOR CONSTIPATION USE 17 GRAMS TWO TIMES A DAY NEEDED F OR CONSTIPATION SOLD: 02/01/2019 [facility] 40 mg 02/01/2019 12:00:00 AM EST tablet,delayed release (DR/EC) 7 TAKE ONE TABLET BY MOUTH EVERY DAY TAKE ONE TABLET BY MOUTH EVERY DAY SOLD: 02/01/2019 [facility] 50 mcg/actuation 02/01/2019 12:00:00 AM EST spray,suspension 16 INSTILL 2 SPRAYS IN EACH NOSTRIL TWO TIMES A DAY INSTILL 2 SPRAYS IN EACH NOSTRIL TWO TIMES A DAY SOLD: 02/01/2019 [facility] 21 mg/24 hr 02/01/2019 12:00:00 AM EST patch 24 hour 28 APPLY 1 PATCH TOPICALLY NEEDED FOR NICOTINE CRAVINGS APPLY 1 PATCH TOPICALLY NEEDED FOR NICOTINE CRAVINGS SOLD: 02/01/2019 [facility] Insurance Providers Payer name Policy type / Coverage type Policy ID Covered republican ID Covered republican's relationship to cassidy Policy Cassidy Plan Information [facility] COMMUNITY PLAN [id number] [id number] SP [id number] [facility] [id number] Unemploye d [id number] [facility] [id number] SP [id number] SELF PAY [facility] COMMUNITY PLAN [id number] SP [id number] [facility] [id number] SP [id number] [facility] COMM[facility] [id number] SP [id number] [facility] [id number] SP [id number] [facility] [id number] SP [id number] [facility] [id number] S [id number] [facility] MEDICAID [id number] Self [id number] [facility] OFFICE OF MENTAL HEALTH [id number] Self [id number] [facility] [id number] SP [id number] [facility] I [id number] Self [id number] [facility] [id number] S [id number] Medicaid S [id number] S [id number] Managed Care - UHC Community Plan P [id number] S [id number] [facility] [id number] S [id number] [facility] MEDICAID [id number] Self [id number] [facility] [id number] Unemploye d [id number] [facility]ITY [facility] [id number] Unemplo yed [id number] [facility] [id number] S [id number] MEDICAID [id number] Unemployed [id number] [facility](MCAID) O [id number] S [id number] Medicaid S [id number] S [id number] Managed Care - UHC Community Plan P [id number] S [id number] Managed Care - UHC Community Plan P [id number] S [id number] Managed Care - UHC Community Plan P [id number] S [id number] Medicaid S [id number] S [id number] UNHC COMMUNITY PLAN XIX [id number] 18 [id number] UNHC COMMUNITY PLAN XIX [id number] 18 [id number] MEDICAID [id number] SP [id number] UHC I [id number] Self [id number] UHC I [id number] Self [id number] Managed Care - Community Plan United [employer] P [id number] S [id number] UNHC COMMUNITY PLAN MCDHMO [id number] SP [id number] COMMERCIAL MISC [id number] Patient [id number] [facility] MEDICARE PPO [id number] Patient [id number] JANET [id number] SP [id number] JANET CARE [id number] S [id number] [place] [id number] SP [id number] MEDICAID [id number] SP [id number] [facility] [place] [id number] S [id number] Managed Care - Community Plan United [employer] P [id number] S [id number] [facility] [id number] SP [id number] [facility] [place] [id number] SP [id number] [facility](MCAID) O [id number] S [id number] [facility] [place] [id number] S [id number] Medicaid S [id number] S [id number] Managed Care - Community Plan United [employer] P [id number] S [id number] UNHC COMMUNITY PLAN MCDHMO [id number] SP [id number] [place] Insurance ([place]) Workers Compensation [id number] [facility] Community Plan Commercial [id number] Self [id number] [place] [employer] [place]) Workers Compensation [id number] [facility] Community Plan Commercial [id number] Self [id number] SELF PAY ONLY UNAVAILABLE UNAV AILABLE [place] INSURANCE O [id number] O [id number] 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 [id number] SP [id number] [place] [employer] [place] U[place]VAILABLE SP UNAVAILABLE 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 [id number] SP [id number] [place] INSURANCE O [id number] O [id number] O UNAVAILABLE [place]A [place] O [id number] O [id number] [place] [employer] ([place]) Workers Compensation [id number] [place] Medigap Part B [id number] Self [id number] [facility] Health Maintenance Organization (HMO) [id number] Self [id number] [place] Medicaid [facility](MCAID) O [id number] S [id number] MEDICAID M [id number] S [id number] Problems, Conditions, and Diagnoses Code Display Name Description Problem Type Effective Dates Data Source(s) USER-Addiction Addiction/Abstinence/Withdrawal Addiction/Abstin ence/Withdrawal Complaint 01/09/2020 12:00:00 PM EST [facility] ([facility]) USER-Family Family Family Complaint 01/07/2020 12:00:[address] [facility] ([facility]) USER-Social Social/Interpersonal/Recovery Environmen t Social/Interpersonal/Recovery Environment Complaint 01/07/2020 12:00:0 0 PM EST [facility] ([facility]) USER-Emotional Emotional/Behavioral/State of Change Emo tional/Behavioral/State of Change Complaint 01/07/2020 12:00:00 PM EST [facility] ([facility]) USER-Biomedical Biomedical Biomedical Complaint 01/07/2020 12:00:00 PM EST [facility] ([facility]) 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 Complain t 01/07/2020 12:00:00 PM EST [facility] ([facility]) Z13.9 Encounter for screening, unspecified Z13 .9 - Encounter for screening, unspecified Diagnosis 02/16/2020 07:07:00 PM EST [employer] F17.200 Nicotine dependence, unspecified, uncomp licated F17.200 - Nicotine dependence, unspecified, uncomplicated Diagnosis 02/16/2020 07:07:00 P M [facility] [employer] F11.99 Opioid use, unspecified with unspecified opioid-induced disorder F11.99 - Opioid use, unspecified with unspecified opioid-induced disorder Diagnosis 02/16/2020 07:07:00 PM [facility] [employer] F15.90 Other stimulant use, unspecified, uncomp licated F15.90 - Other stimulant use, unspecified, uncomplicated Diagnosis 02/16/2020 07:07:00 PM EST [employer] F41.0 Panic disorder [episodic paroxysmal anxi ety] F41.0 - Panic disorder [episodic paroxysmal anxiety] Diagnosis 02/16/2020 07:07:00 PM EST [facility] [employer] F31.4 Bipolar disorder, current ep isode depressed, severe, without psychotic features F31.4 - Bipolar disorder, current episod e depressed, severe, without psychotic features Diagnosis 02/16/2020 07:07:00 PM [facility] [employer] F29 Unspecified psychosis not du e to a substance or known physiological condition Unspecified psychosis not due to a subst ance or known physiological condition Diagnosis 01/03/2020 11:07:37 AM EDT [facility] EMS Diagnosis 12/30/2019 09:01:33 PM ED T [facility] depression, suicidal ideations depression, suicidal id eations Diagnosis 12/30/2019 03:25:00 PM [facility] K21.0 Gastro-esophageal reflux disease with es ophagitis GASTRO-ESOPHAGEAL REFLUX DISEASE WITH ESOPHAGITIS Diagnosis 11/16/2019 01:25:00 PM EDT [facility] F13.20 Sedative, hypnotic or anxiolytic depende nce, uncomplicated SEDATIVE, HYPNOTIC OR ANXIOLYTIC DEPENDENCE, UNCOMPLICATED Diagnosis 11/15 01:25:00 PM EDT [facility] L29.9 Pruritus, unspecified PRURITUS, UNSPECIFIED Diagnosis 11/16/2019 01:25:00 PM T [facility] J44.9 Chronic obstructive pulmonary disease, u nspecified CHRONIC OBSTRUCTIVE PULMONARY DISEASE, UNSPECIFIED Diagnosis 11/16/2019 01:25:00 PM EDT [facility] F31.9 Bipolar disorder, unspecified BIPOLAR DISORDER, UNSPEC IFIED Diagnosis 11/16/2019 01:25:00 PM EDT [facility] K27.9 Peptic ulcer, site unspecifi ed, unspecified as acute or chronic, without hemorrhage or perforation PEPTIC ULC, SITE UNSP, UNSP AC OR CHR , W/O HEMOR OR PERF Diagnosis 11/16/2019 01:25:00 PM EDT [facility] B18.2 Chronic viral hepatitis C CHRONIC VIRAL HEPATITIS C Di agnosis 11/16/2019 01:25:00 PM EDT [facility] F15.20 Other stimulant dependence, uncomplicate d OTHER STIMULANT DEPENDENCE, UNCOMPLICATED Diagnosis 11/16/2019 01:25:00 PM EDT [facility] F17.210 Nicotine dependence, cigarettes, uncompl icated NICOTINE DEPENDENCE, CIGARETTES, UNCOMPLICATED Diagnosis 11/16/2019 01:25:00 PM EDT [facility] F11.23 Opioid dependence with withdrawal OPIOID DEPENDE NCE WITH WITHDRAWAL Diagnosis 11/16/2019 01:25:00 PM EDT [facility] F10.230 Alcohol dependence with withdrawal, unco mplicated ALCOHOL DEPENDENCE WITH WITHDRAWAL, UNCOMPLICATED Diagnosis 11/16/2019 01:25:00 PM EDT [facility] Suicidal with a plan to cut wrist. Hx d epression. Suicidal with a plan to cut wrist. Hx depression. Diagnosis 11/11/2019 08:22:00 PM EDT [facility] E55.9 Vitamin D deficiency, unspecified VITAMIN D DEFI CIENCY, UNSPECIFIED Diagnosis 09/19/2019 01:24:00 PM EDT [facility] R45.851 Suicidal ideations SUICIDAL IDEATIONS Diagnosis 01:24:00 PM EDT [facility] J30.2 Other seasonal allergic rhinitis OTHER SEASONAL ALLERGIC RHINITIS Diagnosis 09/19/2019 01:24:00 PM EDT [facility] F10.11 Alcohol abuse, in remission ALCOHOL ABUSE, IN REMISSIO N Diagnosis 09/19/2019 01:24:00 PM EDT [facility] F19.11 Other psychoactive substance abuse, in r emission OTHER PSYCHOACTIVE SUBSTANCE ABUSE, IN REMISSION Diagnosis 09/19/2019 01:24:00 PM EDT [facility] F12.21 Cannabis dependence, in remission CANNABIS DEPEN DENCE, IN REMISSION Diagnosis 09/19/2019 01:24:00 PM EDT [facility] F14.11 Cocaine abuse, in remission COCAINE ABUSE, IN REMISSIO N Diagnosis 09/19/2019 01:24:00 PM EDT [facility] 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, uncomplicated H ALLUCINOGEN DEPENDENCE, UNCOMPLICATED Diagnosis 09/19/2019 01:24:00 PM EDT [facility] M79.631 Pain in right forearm PAIN IN RIGHT FOREARM Diagnosis 09/10/2019 09:25:00 PM [facility] N40.0 Benign prostatic hyperplasia without low er urinary tract symptoms BENIGN PROSTATIC HYPERPLASIA WITHOUT LOWER URINRY TRACT SYMP Diagnosis 09/10/2019 09:25:00 PM [facility] F41.9 Anxiety disorder, unspecified ANXIETY DISORDER, UNSPEC IFIED Diagnosis 09/10/2019 09:25:00 PM [facility] K21.9 Gastro-esophageal reflux disease without esophagitis GASTRO-ESOPHAGEAL REFLUX DISEASE WITHOUT ESOPHAGITIS Diagnosis 09/10/2019 09:25:00 PM [facility] F15.10 Other stimulant abuse, uncomplicated OTH ER STIMULANT ABUSE, UNCOMPLICATED Diagnosis 09/10/2019 09:25:00 PM EDT [facility] F31.9 Bipolar disorder, unspecified Bipolar disorder, unspec ified Diagnosis 05/09/2019 07:54:[address] [facility] suicidal ideation suicidal ideation Diagnosis 05/09/2019 07:54:[address] [facility] R45.851 Suicidal ideations Suicidal ideations Diagnosis 07/2019 10:08:[address] [facility] Suicidal Suicidal Diagnosis 05/09/2019 10:08:05 AM [facility] F98.8 Other specified behavioral a nd emotional disorders with onset usually occurring in childhood and adolescence OTH BEHAV/EMOTN DISORD W ONSET USLY OCCU R IN CHLDHD AND ADOL Diagnosis 04/01/2019 10:35:00 AM [facility] Z68.22 Body mass index (BMI) 22.0-22.9, adult B FR[place] M[place] INDEX (BMI) 22.0-22.9, ADULT Diagnosis 04/01/2019 10:35:00 AM EST [facility] R64 Cachexia CACHEXIA Diagnosis 04/01/2019 10:35:00 AM [facility] Surgeries/Procedures Procedure Description Date Indications Data Source(s) Extended Individual Psychotherapy - 45 min 02/11/2020 12:00:00 AM EST - 02/11/2020 12:00:00 AM EST [facility] ([facility]) Extended Individual Psychotherapy - 45 min 0 12:00:00 AM EST [facility] ([facility]) Medication Management for Substance Abuse Treatment, N aloxone MEDS MGMT FOR SUBSTANCE ABUSE TREATMENT, NALOXONE 11/20/2019 12:00:00 AM [facility] Measurement of Cardiac Electrical Activity, External A pproach MEASUREMENT OF CARDIAC ELECTRICAL ACTIVITY, POSTIE APPROACH 11/19/2019 12:00:00 AM [facility] Individual Counseling for Substance Abuse Treatment, C ontinuing Care INDIV COUNTER TACKER FOR SUBSTANCE ABUSE TREATMENT, CONTINUING CARE 11/17/2019 12:00:00 AM [facility] Detoxification Services for Substance Abuse Treatment DETOXIFICATION SERVICES FOR SUBSTANCE ABUSE TREATMENT 11/17/2019 12:00:00 AM [facility] ECG ROUTINE ECG W/LEAST 12 LDS TRCG ONLY W/O I&R ELECTROCARD IOGRAM TRACING 09/25/2019 12:00:00 AM [facility] URNLS DIP STICK/TABLET RGNT AUTO W/O MICROSCOPY URINALYSIS A UTO W/O SCOPE 09/25/2019 12:00:00 AM [facility] BLOOD COUNT COMPLETE AUTO&AUTO DIFRNTL WBC COUNT COMPLETE CB C W/AUTO DIFF WBC 09/25/2019 12:00:00 AM [facility] 75918 DRUG SCREEN QUANTALCOHOLS 09/25/2019 12:00:00 AM [facility] 48114 DRUG TEST PRSMV CHEM ANLYZR 09/25/2019 12:00:00 AM [facility] [address]72 ANALGESICS NON-OPIOID 1 OR 2 09/25/2019 12:00:[facility] COMPREHENSIVE METABOLIC PANEL COMPREHEN METABOLIC PANEL 09/04 12:00:00 AM EDT [facility] Buprenorphine/naloxone, oral, greater th an 6 mg, but less than or equal to 10 mg 09/25/2019 12:00:00 AM EDT [facility] Non-covered item or service NON-COVERED ITEM OR SERVICE 09/04 12:00:00 AM EDT [facility] EMERGENCY DEPT VISIT HIGH SEVERITY&THREAT FUNCJ EMERGENCY DE PT VISIT 09/25/2019 12:00:00 AM EDT [facility] observation service, per hour 09/25/2019 12:0 0:00 AM EDT [facility] Ultrasonography of Right Upper Extremity Veins ULTRASO NOGRAPHY OF RIGHT UPPER EXTREMITY VEINS 09/11/2019 12:00:00 AM EDT [facility] spital Individual Counseling for Substance Abuse Treatment, C ognitive-Behavioral INDIV COUNTER TACKER FOR SUBSTANCE ABUSE, COGNITIVE BEHAVIORAL 09/11/2019 12:00:00 AM [facility] Results ID Date Data Source [id number] 03/11/2020 11:52:00 AM EST [facility] Name Value Range Interpretation Code Description Data Milena rce(s) Supporting Document(s) Sodium 139 mmol/L 137-145 Normal (applies to non-numeric resul ts) [facility] Potassium 3.5-5.1 Normal (applies to non-numeric resul ts) [facility] Chloride 106 mmol/L 98-112 Normal (applies to non-numeric resul ts) [facility] Carbon Dioxide CO2 22.0-33.0 Normal (applies to non-numer ic results) [facility] Anion Gap 4.0-11.0 Below low normal [facility] BUN 15 mg/dL 9-20 Normal (applies to non-numeric resul ts) [facility] Creatinine 0.80-1.50 Normal (applies to non-numeric resul ts) [facility] GFR 72 mL/min >60 Normal (applies to non-numeric resul ts) [facility] Result based on MDRD formula. Glucose Level 93 mg/dL 74-99 Normal (applies to non-numeric re sults) [facility] The reference range is only applicable w hen fasting. Calcium-Uncorrected 8.4-10.2 Normal (applies to non-nume courtney results) [facility] Corrected Calcium 8.4-10.2 Normal (applies to non-numeri c results) [facility] Bilirubin,Total 0.2-1.3 Normal (applies to non-numeric results) [facility] SGOT(AST) 90 U/L 17-59 Above high normal [facility] SGPT(ALT) 203 U/L 21-72 Above high normal [facility] Alkaline Phosphatase 83 U/L 38-126 Normal (applies to non-num giles results) [facility] can increase Alkaline Phosp le vels up to 2 times the normal adult value. Normal values for children and adolescents are 2 to 3 times the normal adult value. Total Protein 6.3-8.2 Normal (applies to non-numeric re sults) [facility] Albumin 3.5-5.0 Below low normal [facility] ID Date Data Source [id number] 03/03/2020 05:58:00 PM EST [facility] Name: RIVERA LEONE : 1970 A ge/Sex: 49M Ordering Provider: MARKEL Templeton Med Rec #: [id number] Reg Status: ADM IN Room #: 130-2 Date of Service: 03/03/20 Report Number: [id number] cc:MARKEL Templeton Send Report To: [id number] US/US Carotids w Duplex (Doppler) Reason for exam: new onset dizziness, vertigo, headaches Ultrasound imaging performed using color flow and spectral Doppler interrogation. Bilateral vertebrals are antegrade. Right CCA 122.0/33.3 cm/sec Right ICA 102.9/31.5 cm/sec Right ECA 62.9/7.7 cm/sec Ratio 0.8/0.9 Left CCA 127.9/25.4 cm/sec Left ICA 64.8/31.3 cm/sec Left ECA 91.8/14.2 cm/sec Ratio 0.5/1.2 FINDINGS: Peak systolic velocity in the right ICA is 103 cm/sec, end diastolic velocity is 32 cm/sec. ICA/CCA ratio is 0.9. Vertebral flow on the right is antegrade. Peak systolic velocity in the lef t ICA is 65 cm/sec, end diastolic velocity is 31 cm/sec. ICA/CCA ratio is 1.2. Vertebral flow on the left is antegrade. IMPRESSION: NASCET criteria indicates no hemodynamically significant stenosis, less than 15% stenosis bilaterally. NASCET was utilized while determining the amount of stenosis on the US of the carotids. REPORT DICTATED BY JOVAN SALAZAR, REVIEWED AND SIGNED BY DR. OROZCO. REPORT SIGNATURE ON FILE Reported By: Jovan Orozco MD <Electronically signed by Keyanna Orozco MD> 03/04/20 0952 Dictation Date/Time: 03/03/20 0943 Transcribed Date/Time: 03/03/20 1758 Auto Mechanics Teacher: JEANIE Name Value Range Interpretation Code Description Data Milena rce(s) Supporting Document(s) ID Date Data Source [id number] 03/02/2020 10:36:00 AM EST [facility] Name Value Range Interpretation Code Description Data Milena rce(s) Supporting Document(s) Sodium 139 mmol/L 137-145 Normal (applies to non-numeric resul ts) [facility] Potassium 3.5-5.1 Normal (applies to non-numeric resul ts) [facility] Chloride 106 mmol/L 98-112 Normal (applies to non-numeric resul ts) [facility] Carbon Dioxide CO2 22.0-33.0 Normal (applies to non-numer ic results) [facility] Anion Gap 4.0-11.0 Below low normal [facility] BUN 15 mg/dL 9-20 Normal (applies to non-numeric resul ts) [facility] Creatinine 0.80-1.50 Normal (applies to non-numeric resul ts) [facility] GFR 77 mL/min >60 Normal (applies to non-numeric resul ts) [facility] Result based on MDRD formula. Glucose Level 90 mg/dL 74-99 Normal (applies to non-numeric re sults) [facility] The reference range is only applicable w hen fasting. Calcium-Uncorrected 8.4-10.2 Normal (applies to non-nume courtney results) [facility] Corrected Calcium 8.4-10.2 Normal (applies to non-numeri c results) [facility] Bilirubin,Total 0.2-1.3 Normal (applies to non-numeric results) [facility] SGOT(AST) 96 U/L 17-59 Above high normal [facility] SGPT(ALT) 208 U/L 21-72 Above high normal [facility] Alkaline Phosphatase 82 U/L 38-126 Normal (applies to non-num giles results) [facility] can increase Alkaline Phosp le vels up to 2 times the normal adult value. Normal values for children and adolescents are 2 to 3 times the normal adult value. Total Protein 6.3-8.2 Normal (applies to non-numeric re sults) [facility] Albumin 3.5-5.0 Below low normal [facility] ID Date Data Source [id number] 03/03/2020 01:11:00 PM EST [facility] Name: RIVERA LEONE : 1970 A ge/Sex: 49M Ordering Provider: MARKEL Templeton Med Rec #: [id number] Reg Status:ADM IN Room #: 130-2 Date of Service: 03/02/20 Report Number: [id number] cc: MARKEL Templeton; Sendy Baldwin MD Send Report To: Reason for exam: chest pressure 3 days ago and c/o ongoing dizziniess SINUS RHYTHM NORMAL ECG Physician Graphic Editor: Dr. Hunter Tolbert M.D. ECG HEART RATE: 74 /min ECG RR INTERVAL: 804 ms ECG P DURATION: 86 ms ECG QRS DURATION: 89 ms ECG MO INTERVAL: 137 ms ECG QT INTERVAL: 370 ms ECG QTC INTERVAL: 394 ms Q-T dispersion: ms ECG P AXIS: 73 deg ECG QRS AXIS: -4 deg ECG T AXIS: 68 deg REPORT SIGNATURE ON FILE 03/03/201310 Reported By: Hunetr Tolbert MD <<Signature on File>> Exam Date/Time: 03/03/2025 Order #: [id number] Dictation Date/Time: 03/03/201310 Transcribed Date/Time: 03/03/201310 [employer] Teacher: ADRIAN Santacruz Value Range Interpretation Code Description Data Milena rce(s) Supporting Document(s) ID Date Data Source [id number] 02/25/2020 01:08:00 PM [facility] Name Value Range Interpretation Code Description Data Milena rce(s) Supporting Document(s) C-Reactive Protein,Wide Range <3.00 Above high normal [facility] ID Date Data Source [id number] 02/25/2020 01:08:00 PM [facility] Name Value Range Interpretation Code Description Data Milena rce(s) Supporting Document(s) Magnesium 1.80-2.40 Normal (applies to non-numeric resul ts) [facility] ID Date Data Source [id number] 02/25/2020 01:08:00 PM [facility] Name Value Range Interpretation Code Description Data Milena rce(s) Supporting Document(s) Sodium 140 mmol/L 137-145 Normal (applies to non-numeric resul ts) [facility] Potassium 3.5-5.1 Normal (applies to non-numeric resul ts) [facility] Chloride 106 mmol/L 98-112 Normal (applies to non-numeric resul ts) [facility] Carbon Dioxide CO2 22.0-33.0 Normal (applies to non-numer ic results) [facility] Anion Gap 4.0-11.0 Normal (applies to non-numeric resul ts) [facility] BUN 16 mg/dL 9-20 Normal (applies to non-numeric resul ts) [facility] Creatinine 0.80-1.50 Normal (applies to non-numeric resul ts) [facility] GFR 86 mL/min >60 Normal (applies to non-numeric resul ts) [facility] Result based on MDRD formula. Glucose Level 104 mg/dL 74-99 Above high normal [facility] The reference range is only applicable w hen fasting. Calcium-Uncorrected 8.4-10.2 Normal (applies to non-nume courtney results) [facility] Corrected Calcium 8.4-10.2 Normal (applies to non-numeri c results) [facility] Bilirubin,Total 0.2-1.3 Normal (applies to non-numeric results) [facility] Bilirubin,Direct 0.0-0.3 Normal (applies to non-numeric results) [facility] SGOT(AST) 90 U/L 17-59 Above high normal [facility] SGPT(ALT) 190 U/L 21-72 Above high normal [facility] Alkaline Phosphatase 85 U/L 38-126 Normal (applies to non-num giles results) [facility] can increase Alkaline Phosp le vels up to 2 times the normal adult value. Normal values for children and adolescents are 2 to 3 times the normal adult value. CPK 157 U/L 39-308 Normal (applies to non-numeric resul ts) [facility] Total Protein 6.3-8.2 Normal (applies to non-numeric re sults) [facility] Albumin 3.5-5.0 Normal (applies to non-numeric resul ts) [facility] Thyroid Stimulate Hormone TSH 0.358-3.740 No rmal (applies to non-numeric results) [facility] ID Date Data Source [id number] 02/25/2020 12:17:00 PM EST [facility] Name Value Range Interpretation Code Description Data Milena rce(s) Supporting Document(s) White Blood Count 4.8-10.8 Normal (applies to non-numeri c results) [facility] Red Blood Count 4.35-6.08 Normal (applies to non-numeric results) [facility] Hemoglobin 13.0-17.5 Normal (applies to non-numeric resul ts) [facility] Hematocrit 37.7-51.0 Normal (applies to non-numeric resul ts) [facility] Mean Corpuscular Volume 80-94 Normal (applies to non- numeric results) [facility] Mean Corpuscular Hemoglobin 27.0-33.0 Normal (appli es to non-numeric results) [facility] Mean Corpuscular HGB Conc 32.0-36.0 Normal (applies to no n-numeric results) [facility] Red Cell Distribution Width 11.5-14.5 Normal (appli es to non-numeric results) [facility] Platelet Count 317 X10 3/uL 130-450 Normal (applies to non-numeric results) [facility] Mean Platelet Volume 9.6-13.1 Normal (applies to non-num giles results) [facility] Imm Grans% (AUTO) 0 % 0-2 Normal (applies to non-numeri c results) [facility] Neutrophils % (AUTO) 57 % 40-75 Normal (applies to non-num giles results) [facility] Lymphocytes % (AUTO) 27 % 21-46 Normal (applies to non-num giles results) [facility] Monocytes % (AUTO) 13 % 5-12 Above high normal [facility] Eosinophils % (AUTO) 3 % 1-5 Normal (applies to non-num giles results) [facility] Basophils % (AUTO) 0 % 0-1 Normal (applies to non-numer ic results) [facility] Imm Grans# (AUTO) 0.0-0.5 Normal (applies to non-numeri c results) [facility] Neutrophils # (AUTO) 1.5-8.1 Normal (applies to non-num giles results) [facility] Lymphocytes # (AUTO) 1.0-3.1 Normal (applies to non-num giles results) [facility] Monocytes # (AUTO) 0.2-1.3 Normal (applies to non-numer ic results) [facility] Eosinophils# (AUTO) 0.0-0.5 Normal (applies to non-nume courtney results) [facility] Basophils # (AUTO) 0.0-0.1 Normal (applies to non-numer ic results) [facility] ID Date Data Source [id number] 02/25/2020 09:07:00 PM [facility] Name Value Range Interpretation Code Description Data Milena rce(s) Supporting Document(s) Hep Bs Ag Result T-Test Nonreactive Normal (applies to non -numeric results) [facility] ID Date Data Source [id number] 02/25/2020 09:07:00 PM [facility] Name Value Range Interpretation Code Description Data Milena rce(s) Supporting Document(s) HAVM Nonreactive Normal (applies to non-numeric resu lts) [facility] ID Date Data Source [id number] 02/25/2020 09:07:00 PM [facility] Name Value Range Interpretation Code Description Data Milena rce(s) Supporting Document(s) Vitamin D,Total (25OH) 30.0-100.0 Below low normal [facility] Reference Range: <10 ng/mL: Deficien t 10-30 ng/mL: Insufficient 30-100 ng/mL: Sufficient >100 ng/mL: Toxicity possible ID Date Data Source [id number] 02/25/2020 09:07:00 PM [facility] Name Value Range Interpretation Code Description Data Milena rce(s) Supporting Document(s) Syphilis Serology Nonreactive Normal (applies to non-numer ic results) [facility] ID Date Data Source [id number] 02/24/2020 05:31:00 PM EST [facility] Name Value Range Interpretation Code Description Data Milena rce(s) Supporting Document(s) Respiratory specimen severe acute respir atory syndrome coronavirus 2 (SARS-CoV-2) RNA [facility] This lab was ordered by [facility] Nita tovar and reported by [facility]. ID Date Data Source [id number] 02/25/2020 02:04:00 AM [facility] Name Value Range Interpretation Code Description Data Milena rce(s) Supporting Document(s) Color,Urine Yellow Normal (applies to non-numeric resu lts) [facility] Clarity,Urine Clear Normal (applies to non-numeric re sults) [facility] Specific [place],Urine 1.001-1.030 Normal (applies to non- numeric results) [facility] PH,Urine 5.0-8.0 Normal (applies to non-numeric resul ts) [facility] Protein,Urine Negative Normal (applies to non-numeric re sults) [facility] Glucose,Urine (UA) Negative Normal (applies to non-numer ic results) [facility] Ketones,Urine Negative Normal (applies to non-numeric re sults) [facility] Blood,Urine Negative Normal (applies to non-numeric resu lts) [facility] Bilirubin,Urine Negative Normal (applies to non-numeric results) [facility] Urobilinogen,Urine Norm 0.2-1 Normal (applies to non-numer ic results) [facility] Leukocyte Esterase,Urine Negative Normal (applies to non -numeric results) [facility] Nitrite,Urine Negative Normal (applies to non-numeric re sults) [facility] ID Date Data Source [id number] 02/25/2020 01:41:00 AM EST [facility] Name Value Range Interpretation Code Description Data Milena rce(s) Supporting Document(s) Opiate Screen,Urine Negative Normal (applies to non-nume courtney results) [facility] Amphetamine Screen,Urine Negative Normal (applies to non -numeric results) [facility] Benzodiazepines Scrn,Ur result Negative N ormal (applies to non-numeric results) [facility] Cocaine Screen,Urine Negative Normal (applies to non-num giles results) [facility] Methadone Screen,Urine Negative Normal (applies to non-n umeric results) [facility] Cannabinoid Screen, Ur Negative Normal (applies to non-n umeric results) [facility] Therapeutic Drug Ranges for Emergency an d Rehabilitation Threshold Levels (ng/mL) Cocaine 300 Opiates 300 Cannabinoids 50 Barbiturates 200 Benzodiazepine 200 Methadone 300 Amphetamines 1000 All positive find ings are presumptive and unconfirmed. Confirmation of positive results are performed only at request of provider. Unconfirmed results must not be used for non-medical purposes (i.e. pre-employment and legal purposes) ID Date Data Source [id number] 02/24/2020 05:29:00 PM EST [facility] Name Value Range Interpretation Code Description Data Milena rce(s) Supporting Document(s) SARS-CoV-2 RNA Negative Normal (applies to non-numeric r esults) [facility] Negative results should be treated as pr esumptive and, if inconsistent with clinical signs and symptoms or necessary for patient management, should be tested with different authorized or cleared molecular tests. Negative results do not preclude SARS-CoV-2 infection and should not be used as the sole basis for patient management decisions. Negative results should be considered in the context of a patients recent exposures, history and the presence of clinical signs and symptoms consistent with COVID-19. This test has not been FDA cleared or approved; this test has been authorized by FDA under an Emergency Use Authorization for use by laboratories certified under the Clinical Laboratory Improvement Amendments of 1988 (CLIA), 42 U.S.C. 263a, to perform moderate complexity/high complexity tests and at the Point of Care (POC), i.e., in patient care settings operating under a CLIA Certificate of Waiver, Certificate of Compliance, or Certificate of Accreditation. Factsheets for healthcare providers: https://www.fda.gov/media/627028/download Factsheets for patients: https://www.fda.gov/media/860940/download The ID NOW Instrument is a rapid molecular in vitro diagnostic test utilizing an isothermal nucleic acid amplification technology intended for the qualitative detection of nucleic acid from the SARS-CoV-2 viral RNA. THIS IS A STATE REPORTABLE COMMUNICABLE DISEASE. Manual entry verified by Ines Zayas 02/24/20 1729 ID Date Data Source [id number] 02/16/2020 11:28:00 AM EST [facility] Name Value Range Interpretation Code Description Data Milena rce(s) Supporting Document(s) SARS coronavirus 2 RNA [Presence] in Res piratory specimen by CONNOR with probe detection [facility] This lab was ordered by [facility] a nd reported by [facility]. ID Date Data Source [id number] 01/03/2020 06:54:51 PM EDT [facility] Name Value Range Interpretation Code Description Data Milena rce(s) Supporting Document(s) Discharge Summary [facility] QWXZKq4eHqXOGnWh19/WUIdhJYLav1NwASlxPHg7YFxiDDNnI7AaKLZ2lQ9wSYB4OQtJIgUnLiRuLALa lbm [file] YNCg== ID Date Data Source [id number] 01/03/2020 02:27:47 PM EDT [facility] Name Value Range Interpretation Code Description Data Milena rce(s) Supporting Document(s) Nursing Note [facility] IMHTEh7pOpWWFiLn77/YRNbxYNOin8CuVQvoASp9SGhdMKMmA7SpUBM3oC0jSRV9GYmJHwYjBjIpAUKx lbm ZyIjtVDpApXJWvTrgINdLbPBrpNrqqtMTkTA7EkES7VCQkA97hLGZgEOYcL1YzKDZuSco+Jp3LNMSqqK SiPB2YQwqL6IlMhuNOKU5Bxr+hRrK4oF/f0TYAHP/rYuwkzxi3SHcmRKcSZQJakYC/ZiJ1J4mm4Zc1XR 9ZjI5Mqdfz96cWOMA1h0+hd5wRAKz4Z07CmdPFf/Tt N7Rhs+gKonOLWXSBQyYz7kneo9M/ebBgwI5W9ZBKbQlXsvRnSrabTuCkSobivNl8mXm/oL58hvcTtcZ+ 2wUkf3C9T8y/U/gZsXSXj3zjIdDO/xT4729j/t+is4ZbmpmTiiZKu4ZmsEuG4vxJPpmllNrKlIGMlwNK UJM7MstS3l5FBTD1ffZM+AwGzOSeGruTtosEPoa3PP KXfS4MwpsOCvH9mGEPcsKloXN1SgssKXgtMELHbmvQoxpfEv6HYAkKQu1X5IWHWo8d8Xph4swgSWago7 3f+3fVtjPFLRmo837YiMuMwdwI6BorrZoW6dl2zl0XbQLcrXZY08qKjurO+NMvjvqeLXImK9b30/mWgO mwKh+uSf7r5lJ4nDiB49CwYQsqu5oLKXmQUEQ+Nrig toGrLZYP/TFQcSCs4eanT207D9C3mmbQxl4/UOra/XtU9p6kzyoC1LrYXuv/zgm74wcjeiU7bUn9fuHb 2dqu1+NJOYxbAfn2/elxFfEoJZ4kmWmkVv9OHV8LIOHc/Chrystal+81Z96YnbGNz/xNCDG2QT0bbfw7m4lON [file] ICAgICAgICAgICAgICAgICAgICAgICAgICAgICAgICAgICAgICAgICAgICAgICAgICAgDQogICAgICAg ICAgICAgICAgICAgICAgICAgICAgICAgICAgICAgIC AgICAgICAgICAgICAgICAgICAgICAgICAgICAgICAgICAgICAgICAgICAgICAgICAgICAgICAgICAgIC AgDQogICAgICAgICAgICAgICAgICAgICAgICAgICAgICAgICAgICAgICAgICAgICAgICAgICAgICAgIC AgICAgICAgICAgICAgICAgICAgICAgICAgICAgICAg ICAgICAgICAgICAgDQogICAgICAgICAgICAgICAgICAgICAgICAgICAgICAgICAgICAgICAgICAgICAg ICAgICAgICAgICAgICAgICAgICAgICAgICAgICAgICAgICAgICAgICAgICAgICAgICAgICAgDQogICAg ICAgICAgICAgICAgICAgICAgICAgICAgICAgICAgIC AgICAgICAgICAgICAgICAgICAgICAgICAgICAgICAgICAgICAgICAgICAgICAgICAgICAgICAgICAgIC AgICAgDQogICAgICAgICAgICAgICAgICAgICAgICAgICAgICAgICAgICAgICAgICAgICAgICAgICAgIC AgICAgICAgICAgICAgICAgICAgICAgICAgICAgICAg ICAgICAgICAgICAgICAgDQogICAgICAgICAgICAgICAgICAgICAgICAgICAgICAgICAgICAgICAgICAg ICAgICAgICAgICAgICAgICAgICAgICAgICAgICAgICAgICAgICAgICAgICAgICAgICAgICAgICAgDQog ICAgICAgICAgICAgICAgICAgICAgICAgICAgICAgIC AgICAgICAgICAgICAgICAgICAgICAgICAgICAgICAgICAgICAgICAgICAgICAgICAgICAgICAgICAgIC AgICAgICAgDQogICAgICAgICAgICAgICAgICAgICAgICAgICAgICAgICAgICAgICAgICAgICAgICAgIC AgICAgICAgICAgICAgICAgICAgICAgICAgICAgICAg ICAgICAgICAgICAgICAgICAgDQogICAgICAgICAgICAgICAgICAgICAgICAgICAgICAgICAgICAgICAg ICAgICAgICAgICAgICAgICAgICAgICAgICAgICAgICAgICAgICAgICAgICAgICAgICAgICAgICAgICAg TXh0H9jzJURcNDXzCH5eDWg6Tx9+KJzHFsMfKOR1ze GlhR4DWC6fx4ScYNjvLNHqe2LkRIw2ZK6ZYFZhDKbsTU2OAGnqqp2NMIYoORLwcIVFt5mcYaCxMRP8ZI CyNnnxER2EXZBgW9wabrThXKKuGBJSAF3UTyOmD9DezS79FDUDLc1+GPikwdWwYngGRpSoVGVad6XzJJ x6IV5LPTSbFtvsw8AoSgHxROAKZSbqEC7QRHO7HHMq ILZvDe7YSDMnA891vqVkSL8OJz1SMhMoTF5nlx0JOhOnNSHhOdyNXwo9QEmsEO4VgCYjTPrXoNLtmB0s TC3yqTKoBrxoAS5mltG6NFYqGKSuCKCOEeDfoQIvWQ3qPT4hUZWsLQTtWzT0GSUWAF8IQGJdHWYbkHAi CZJxBJVZON2WQJgmNKV4UjiladXhjYKbQZrlKW2ALD JlbnQgMjIgMCBSDQo+Xq4HZU9sy7BgGTiuWELrYO3szr8AXNoSBeTdE6X7nIZnP1A2RCktKr4YOIJzGO JeMyWcWIAVUZtvGG8RWS5snmU5QC0EaVYoFHYeCEAndZNhFJw3X47zfRIcWQdoKL5WKIU+Nacho+Pg0KIC XiGOBqRSRbFaXuBCFZSmTjP3IsV9EOh9TnX3RcKC16 rSiddoTsPKmxGB9VLM2rMBMuYHLJIA0DpKMipK0zvaWbFjWsPTXMZkMtI35oxEGgODDzNVIdOGGhQf6G JEVjA6AshmDefNuwrxBqTRIfMGORQS3BDJzlgnGbcCKjzDnnCL79sYlzAX8WCp7GBzOhHP8tme8VoWWg Jv5JQIXoJG3LJJVkTXNeIWLgAVU5VDNsCpYuIFiaNP ToGHMbDYC6SYPfCJRyWY2YHnOoJXXrDJzqNzWrFZPuFWVanz9HXSMaOAEgNOq1YLSiYAMjVWBuSKjuGM NaAGEyDIF3YXTzSBFoWD4VZtVnXIDdALS5KyBnCRJpBXKqub2AXNAtARYyLUa1JTIhPOMgFJZzVNkwCX HrXIOhCzB3ZTUsRKDmBV2GHuYmFYAlQDB9TpqtUEBg SKYvad8RIWLvKVSsAeZdHTTmVKVlXAHaYIzgBQKgMRL1VLnuSVSsGNRoSQ5UJkSjLMBuXQLcNzAoLFUa YYGpiy4CBLTnERAlXOR6FvBgKLBsDSAqPTksMZZlXBQ2RUOuWEWcWENjWK3SZrJiBWBhOVsmKNcvITUg DJCvxw9FERUxIETsFiWwLgDzWQBqAPMdVGlxOCBpZI Y8UHR0HOBnNVQtII6CWtVpVNAhZAq2DBFmMLXwOEKlfk6CLSOaDSLfJMP9WYEhHFAdTVWaETrtNQHwXD D3NQQ9ZBAsASYzLF5IUaXqDHYxHSqvQRYqOFAbLYJrpn9FZESxPNHcQJHiWTAzFHRqXFTdTIzwAABdDT UiQBP1DYZhGDLzDE8UYxCwQDSwSoL8XaixAFZnZUCn ef7LOFJiWLWyFCV4FxVsIHTlLFAtZEq6hbXgzSSxJMg0RQ3WY8MfrnHxWqEDSu6Zu639EHM3WLWrEy9J T4wjLl5sQCCvDZXKWm8HBXe5SsTzFRIeRYWmPduuPXE3GCSsUtB4RJSfLQGpJ5Q5OZB+IDwzNmEwMmY5 WHKjE5K0JYAeWVQnASWhOBHjEpJ1FYq9Tg0sKELXZa6+GSdodDZwfTisPPUJPsGlIwY1ZGyhKHCXVf8W ID Date Data Source [id number] 01/03/2020 02:02:48 PM EDT [facility] Name Value Range Interpretation Code Description Data Milena rce(s) Supporting Document(s) Progress Notes [facility] GIBLLh0kNjBJWqVn89/TEFbiYFVot0RxKEwwOCf5PPnjSELgG5MeVXQ6vR8kWKU3BOwXPzAhHcDgDPIz lbm [file] ICAgICAgICAgICAgICAgICAgICAgICAgICAgICAgIC AgICAgICAgICAgICAgICAgICAgICAgICAgICAgICAgICAgICAgICAgDQogICAgICAgICAgICAgICAgIC AgICAgICAgICAgICAgICAgICAgICAgICAgICAgICAgICAgICAgICAgICAgICAgICAgICAgICAgICAgIC AgICAgICAgICAgICAgICAgICAgICAgDQogICAgICAg ICAgICAgICAgICAgICAgICAgICAgICAgICAgICAgICAgICAgICAgICAgICAgICAgICAgICAgICAgICAg ICAgICAgICAgICAgICAgICAgICAgICAgICAgICAgICAgDQogICAgICAgICAgICAgICAgICAgICAgICAg ICAgICAgICAgICAgICAgICAgICAgICAgICAgICAgIC AgICAgICAgICAgICAgICAgICAgICAgICAgICAgICAgICAgICAgICAgICAgDQogICAgICAgICAgICAgIC AgICAgICAgICAgICAgICAgICAgICAgICAgICAgICAgICAgICAgICAgICAgICAgICAgICAgICAgICAgIC AgICAgICAgICAgICAgICAgICAgICAgICAgDQogICAg ICAgICAgICAgICAgICAgICAgICAgICAgICAgICAgICAgICAgICAgICAgICAgICAgICAgICAgICAgICAg ICAgICAgICAgICAgICAgICAgICAgICAgICAgICAgICAgICAgDQogICAgICAgICAgICAgICAgICAgICAg ICAgICAgICAgICAgICAgICAgICAgICAgICAgICAgIC AgICAgICAgICAgICAgICAgICAgICAgICAgICAgICAgICAgICAgICAgICAgICAgDQogICAgICAgICAgIC AgICAgICAgICAgICAgICAgICAgICAgICAgICAgICAgICAgICAgICAgICAgICAgICAgICAgICAgICAgIC AgICAgICAgICAgICAgICAgICAgICAgICAgICAgDQog ICAgICAgICAgICAgICAgICAgICAgICAgICAgICAgICAgICAgICAgICAgICAgICAgICAgICAgICAgICAg ICAgICAgICAgICAgICAgICAgICAgICAgICAgICAgICAgICAgICAgDQogICAgICAgICAgICAgICAgICAg ICAgICAgICAgICAgICAgICAgICAgICAgICAgICAgIC FrGEBkAPUcRBDrOZBwTRHvCCOpAJUeXLBoWEDvQAMeRNHkZEUgVIZxKACpNZTdRCGcCTz7B5fmUMWgNE SkXA5zVDk8Gy0+AMtMJzTxDHU6oyXibK8UAU1wt5OkYXwmPULhg5UgYSu4LI8DEZNbPLreMB8QTPemra 9HWIWiADBjoINNr1jjCnYiFCV4QHAmEjpqSQ9DITGj H2zawxEsMKGzWMOUZJ7VVhVxR8IaoU06UUIALx5+CGuaylTiCtjSSpM8QNDzn1PcNLp4HF3FFDLiPcda j6QmIqLtNGKDJHglYC7SFJQ6YFH3ZRVvDw2GMRThR723tqKeUH2QSk7IQrSePF2qkg3NMkLyLVAyVkpE Afn5HOwsOS7QnISwXRuCyc8buiDdugZJl5DpmsYjqX QVRFRwzRFoSHEhn2FnrcAeuJRnFH5jOA8iFZLkPTBnWxEuAVRIDJ2QQSPbSIBgzWSaIPBpWEMHBD0PZX etAKR5SqogvkGumEKgCBdiGY3KKRFdfeKeIaGvKIHUCIg+Dx3XEQ7tc7EhQNyaOkIiSJ6mdv4BTAsYMn MlG8H6xZIhE6P8QPlzBr5MTANmTXMxWwAkBSDXZAah SY3UYA2zscX7IZ0SpLRoUCLbOVNujJZzHZr7Z55xhDCmRTqrTH8NRJN+Nacho+Ep7DAUKgYSDbZOLuCrOf CCYMKoSxY3XaF9ORi6AkB8WgFG20sEjtqyBtVClkYJ2YEN4tHRXgWRLJJF9IiYNgqS9gucYrJOTsWOLJ ZfFeV08ejEEkICKyHCH3OYPcNj7DWQXkY1BxbjCrxN aoxvBkPCDeIEXNTF0SXByoulQrsNUgnNupFM76vGyuUU0ZTy8MCzLoUK2ylt9FqDPuWi9DTIVqXK1GYC CsMZLbWYMyGLX4QAPxBbQhTPmkNYWyHSDdLKY4TJJkUCTkVH2DYvTdBCYdSwGiKsSlITSoIBQjgl6DGT DsHNQaGaj6GBJtYMDvXIJzRMgnVLKxBIUiGSL5BVUh MRWgME7AByQkEOAuFEL8UVUqLAQmNRKzof5TNULoCPDjZpB6TXSjNZGzYTMvLMsvOZRxKMPrLcIsZSUh LWZhJE4UDdRaASSpPGZ8WGUmNOApNZHcgo1ANRKtRWSqHyf9WKFjGHUxLKGiVFtbTKQmOGP6FGL8GUUb CMYbEV7QGtHkIPEzCDWjYTYoMMShAPYuiq0FNLDxUD MfIIAgXvPdASXxWUOaZKtoSUZgUDH8Emx0OXWtVFPyMX0GHoKvNXHwUTn5EBYeKIEmHDWdat6LXSMtOS YaJAZwYYDtBDSxXPZeFFrjATZzJYQ5PIMrLAGnRMDjOB9AJkGnDKZfXYp3UDCeOKXgHOStjv8FOMNaBE ZmXCDuGNZdDKJjUJSqRRhaDAGvLGU1WoJvOAAkEHFw RN9NKvPxHUGeZOd8TQguCYIcUDFhoh2CNXXuYSFqZLo7LFCrTGJsILJfEUmnSCNcLNYxNIG0TBUjEADf TG5IFdFjNNEmShHhWTvsOHAbOEUaxa7FMXPaYBLgDZZtJYSzYTXmJKAzNBidFLEyVDViUCZ0DAPyODAf IZ5ACyUjBBNcDsCqRlkkCIWlWNAhic1UMLEhQKGrDv D7NYNlGHDmPPFuFUs6uaRbxUQsAUj9ZT2GE6VbbyHiRjqUXr7Px342BFY6ZUIfOa8AA8lfHv7sWQWlOG GCEl0FZIe9WXEeBYXnWjidIVU4RMH2CaL4RCQbPKV1YUHaZKAzMNX+UEk9D8ByQiPzTPLxDCYmNItdLz TzFERxPDldA3IlQSS7Cb5fAKFGSz3+OMjbcBXkdAnzHLTNSgRiFON7RAttSPULSk6W ID Date Data Source [id number] 01/03/2020 12:56:06 PM EDT [facility] Name Value Range Interpretation Code Description Data Milena rce(s) Supporting Document(s) Nursing Note [facility] KPCPXq7lSvRJIbFj51/CUBitOZBmj3JgFSzfALe8LDhfIRGnA6NtFCN3nA4mTGK2DArNNsOlMaJsKCXa lbm [file] ICAgICAgICAgICAgICAgICAgICAgICAgICAgICAgIC AgICAgICAgICAgICAgICAgICAgICAgICAgDQogICAgICAgICAgICAgICAgICAgICAgICAgICAgICAgIC AgICAgICAgICAgICAgICAgICAgICAgICAgICAgICAgICAgICAgICAgICAgICAgICAgICAgICAgICAgIC AgICAgICAgDQogICAgICAgICAgICAgICAgICAgICAg ICAgICAgICAgICAgICAgICAgICAgICAgICAgICAgICAgICAgICAgICAgICAgICAgICAgICAgICAgICAg ICAgICAgICAgICAgICAgICAgDQogICAgICAgICAgICAgICAgICAgICAgICAgICAgICAgICAgICAgICAg ICAgICAgICAgICAgICAgICAgICAgICAgICAgICAgIC AgICAgICAgICAgICAgICAgICAgICAgICAgICAgDQogICAgICAgICAgICAgICAgICAgICAgICAgICAgIC AgICAgICAgICAgICAgICAgICAgICAgICAgICAgICAgICAgICAgICAgICAgICAgICAgICAgICAgICAgIC AgICAgICAgICAgDQogICAgICAgICAgICAgICAgICAg ICAgICAgICAgICAgICAgICAgICAgICAgICAgICAgICAgICAgICAgICAgICAgICAgICAgICAgICAgICAg ICAgICAgICAgICAgICAgICAgICAgDQogICAgICAgICAgICAgICAgICAgICAgICAgICAgICAgICAgICAg ICAgICAgICAgICAgICAgICAgICAgICAgICAgICAgIC AgICAgICAgICAgICAgICAgICAgICAgICAgICAgICAgDQogICAgICAgICAgICAgICAgICAgICAgICAgIC AgICAgICAgICAgICAgICAgICAgICAgICAgICAgICAgICAgICAgICAgICAgICAgICAgICAgICAgICAgIC AgICAgICAgICAgICAgDQogICAgICAgICAgICAgICAg ICAgICAgICAgICAgICAgICAgICAgICAgICAgICAgICAgICAgICAgICAgICAgICAgICAgICAgICAgICAg ICAgICAgICAgICAgICAgICAgICAgICAgDQogICAgICAgICAgICAgICAgICAgICAgICAgICAgICAgICAg ICAgICAgICAgICAgICAgICAgICAgICAgICAgICAgIC IpCDOtZIWlREBuIMUzPNFjRDZgKLAcQVTzENZoZOYdYRZfBJa4Y9hmEIKiHQKqRR4tBIl1Zf3+DQoNCm BlTZI0nxLpwC9FQD2on1WeRTadOIYpv8BjOMf8ZV2VQWPdAStuNC6NKNozxy7MNAHyXKVqiQIPk2czBi WwXBJ4ZVGtNsemQC0NEAVvY4fgehCqUGSpJSMYDJ7D BfLoY4ZhbW27FLZJMd6+CXxnljFyGqtNBkFuMGWwk8FsEIp3WE2ZDAXdQtsyt5MjJrOzVORDODnfRU0M RJX6HBWxXQXeDt8IEOAdM693gyKhWX9BCr9BYuVkWR2agv5ZOfKvUSBvZtsBYoh9FAwgDP7IyQSsJYbD iFZrdZ3zWA8qoYRcVcjkPT1rloO9AKUpNTRmBHDKZo ZfbZSjGA6sHR8lOWWkJURlGuMlUYWEZF0CNMUsRPYwiDOoSVOiNLLSHE6CEEulUHX6UuglavWvjRRmFB stID4OAMCiicQpBdRzAKZGBZy+Wq2LUT2qo9TpYQzcQEJzIW2vxy2LLUfOXgTnG9K4qKTgQ3A6PNdvGk 1OMMLjBJAkYuMoQVCAVKmwSE0YFG9iizA8IY1PjEMr MRLyGTVgjPEvGOf1B41rmNNtLDxnBB4WEAF+Nacho+Dy3AVSFtQQCnQVEiXlIyZZCHKrDwE1ZjF4MEt6Os Z3JmZS26nMzgpdClFZjpFQ3VFU1aZLLkOVIYUU3YwSCvgM3efaRyUqNdNDDQXkAmG63ocPKaLWSwYWUt BMJiEd5HRUCoF4RvzlQhrIpaigNtNTZqSLJGJZ7YXA ptwzHolNAabAtqAT03nCfsYZ8ETk2AYmMpYZ9ljq2OeLSyNq0QGPHlFQ6YDDHmUIYjNFShZPN2KWVbVn NdPOlnOBWnVCYfTNY7TEKxGYKfKU2SFmAdROFzTUtsNHJrKCCvXZSguz7ZJRAjIHIsHRbhGHVuSHPfZC KiTGphGHHxEXSsDYI5XYPrRNEgAZ2WKlMuWMRmIAJ0 ZyZzXOZqFXTobj2QKVUkLLYnIWoeTrIiPEGrDMXnGXphBMUiSJYvZhc4FEPsVFHtZO3QJiEwNUEfYGR3 YPSaHPLrNGNfzj0NAUBxCNFlHkQ5DMEtDJGvWBUzWOjnBDMbNND0ZWT7ZGBfVFZyQY8PTvDgAOYvSSAx TyHxOAHwKIKmji8AVUQvHLUfLNHrALPhHBNvARNzGK kgJBUiWFR8XZQ6HFZgWARxVM9RJiJjGWEyXTjdNFZfKMDzIDSpjs9VMAGbTJQrRtL4IiNyBLKyTGTmWX oeDXMaNEM4BpTvRRMtLLMyWV4IOmCeNJVvCJw9TtplBJJjWDRimo5XGBAsSXNoJAgzOVUcACTtVRFiQI aoJKThZRM5AOR1KERjUWNuKE7SQpCwHWEdQJylCjgg KAPrMWEpym2PKUWiYZBhHYO7DNRoOARrNLTqWGakIOBkQILmJSEqCGAfNBSgYQ2SWbRrQCNtThSqPZOd FPZzSWOecz3LZUIiQJQrWLA5VAKuYHQsOYEqENh7bbGleTEyIQb6NP8BF7BmroZmDcYOUn3Kx645RWU6 JHWsTb4SF7obTn9lMNSaSBDJZl1SMYg5HiB6OiLwTw ReWoW4OTpkFIAkBmY0FKSzNHCgFZZpShH+PWy2XLf4EjV0UCVuLio0VFT7ZEGsEEXqVXWfOHPbADD4MM 9dCIHUCw8+FPagcCMohCfvOVPHKrBrSxwcODrqPUVAAc7N ID Date Data Source [id number] 01/03/2020 12:14:17 PM EDT [facility] Name Value Range Interpretation Code Description Data Milena rce(s) Supporting Document(s) Care Plan [facility] YKXLKe3qMyOBAxKe12/SHLolGSCpf8SjCFzwPCr3ZUhhZUYuC1OcBGE7cF9pUYN5WOgMKqAeWgBsZPLv lbm [file] Rk6FYxz5WXyLMgXjRM6PSLs= ID Date Data Source [id number] 01/03/2020 11:42:05 AM EDT [facility] Name Value Range Interpretation Code Description Data Milena rce(s) Supporting Document(s) Progress Notes [facility] FJBXWi0eAcUXZbHh77/LQNsrCALoq4MiGJbnBRw9YMmgOPJtT2VhJND0qM3tJMK6UEzSJqHiOnFbBYUq lbm [file] ICAgICAgICAgICAgICAgICAgICAgICAgICAgICAgIC AgICAgICAgICAgICAgICAgICAgICAgICAgICAgICAgICAgICAgICAgICAgICAgDQogICAgICAgICAgIC AgICAgICAgICAgICAgICAgICAgICAgICAgICAgICAgICAgICAgICAgICAgICAgICAgICAgICAgICAgIC AgICAgICAgICAgICAgICAgICAgICAgICAgICAgDQog ICAgICAgICAgICAgICAgICAgICAgICAgICAgICAgICAgICAgICAgICAgICAgICAgICAgICAgICAgICAg ICAgICAgICAgICAgICAgICAgICAgICAgICAgICAgICAgICAgICAgDQogICAgICAgICAgICAgICAgICAg ICAgICAgICAgICAgICAgICAgICAgICAgICAgICAgIC AgICAgICAgICAgICAgICAgICAgICAgICAgICAgICAgICAgICAgICAgICAgICAgICAgDQogICAgICAgIC AgICAgICAgICAgICAgICAgICAgICAgICAgICAgICAgICAgICAgICAgICAgICAgICAgICAgICAgICAgIC AgICAgICAgICAgICAgICAgICAgICAgICAgICAgICAg DQogICAgICAgICAgICAgICAgICAgICAgICAgICAgICAgICAgICAgICAgICAgICAgICAgICAgICAgICAg ICAgICAgICAgICAgICAgICAgICAgICAgICAgICAgICAgICAgICAgICAgDQogICAgICAgICAgICAgICAg ICAgICAgICAgICAgICAgICAgICAgICAgICAgICAgIC AgICAgICAgICAgICAgICAgICAgICAgICAgICAgICAgICAgICAgICAgICAgICAgICAgICAgDQogICAgIC AgICAgICAgICAgICAgICAgICAgICAgICAgICAgICAgICAgICAgICAgICAgICAgICAgICAgICAgICAgIC AgICAgICAgICAgICAgICAgICAgICAgICAgICAgICAg ICAgDQogICAgICAgICAgICAgICAgICAgICAgICAgICAgICAgICAgICAgICAgICAgICAgICAgICAgICAg ICAgICAgICAgICAgICAgICAgICAgICAgICAgICAgICAgICAgICAgICAgICAgDQogICAgICAgICAgICAg ICAgICAgICAgICAgICAgICAgICAgICAgICAgICAgIC ViPNUqQENnOHZnDFZkMWPzKNVqUONcGEIoBHOaDDKuDRMzDZKjOLVwZODzXXXyRCQwCITpPJKmYCf6C7 fbUAVdYXYlII5tDSq6Ho7+IEzQZiCjFXB5biCopE5YOZ4cw0XnGVzgYISxq6WvBSn7HQ9JKDBrMPxtGO 8SFEtwzq0URUCcZYEnpFVBk2fbZoVoLES1LFNnOsbm TW8BLNYbF5frnkNjVETbYRUPVM8JYvFnA6SuaE84NSXTKo2+KUlqqhIrKzfOAdQ7YAEuu3UlWWl4KB7U ODFyQsykp6AwWmPfUPVDWXazRL6WTBE9PHV4RAXsHf9SCEQnO865voKeWT4KCr2LFdBvTG0bhw3EPdTp PVGyTzgGQxl8QTcuXD7UgZCkHVwCih0xrwXkbvBLp8 CffkPxbLUNyM6lJEUxMrHxZYR5KWVpPvRoQmWuZiAcHGN0NJLaIF9yJGebRB4ODNO0MZkpFUYoVEUwT3 sPOzSoOEiyDLJmhCdzGL7AHaPgQ6CunzDcqUBmCKEjCABETu6+IAbnelQlVkuUXvT2PBVrk9VpRFs4WQ 5UVKCfWSfgOC2OSQCstS6aAMjuIU6RIaLcTtUoQZTR AbRnB33wfWAvWBq8V8DwPyJwCACyReurFSGvUOleAdTvSFJpOePmGKvqCQ1+ID4+SQwnGM7LYPfmjdWr HFOpWc3BPQKnRFDdPB1rHOFtANQtG8Z7vVaxTRRHXdIxF7fmmdxxWN8pBTDgD028sJksprLqTIY9ELRa Kb2FZQWyDXO3SRFmlBAbSgJsIVGEZRvcPS2HjFEeKB L1aJ5mQAnxEALwSCCyM4dPKqUqdFvpLJ71pKohkuQvwREiPKd+Vv1GHJ1fd0RfODr2orYuOOghLCC0YB biNRIlHZGqCEBoOFG3GSS3EQJMZwNrLAJwQTFfNMfvZKZaHYNfsx5AVSWnUJUhPRJnLGSmEJZrNUTmIZ wfERIzFUCtVltmOEByGMIgSH0TDhQsRWBjCGZfTMgk UNOjMBOggv3IEOTeEUFcIGq2IQVcTBJcKEMyNGtkROZjFPZmVMA2XWZjPWCoZX6KHbAvRSMvEFUsBSUl IJLqZCCbcl0PGHNlBARgCyPvJdAuJMOjBCNyDJhxHOZkTCYdTpj6JSHrAQPmUB1AAcOpEEUeXYMlVKaw DYZnDHRagy2ZQFGpEUXyZJI2CJBfNFOvSUSfICzwWJ JrJKH6LlV2YPXfECKiMP9ZTpHfXOFtFZarGuGgNNMxMOSppr0XQBRlZMShUsD8GFLyFWVrBQJwXXjmVE CbVZG8OoQdPPUoKCEiTV5MQjCfWPImLCh0SBCvLAAvEDBmsy3YDMEuKEHgBov4IiRuUAYcFIFnUQglWW AgHZO9XTR0VRStJSQqNC4MLjRtLFJwWTqcYmJyQWUa MAIxhm9MULJgYEDrCKN7DHYzTULbXWXzFHehCCWaBOEhAfTfMTRxBGIkWV6ARvOqAULzTdX0XzFrJBGj KWNimk4FHQFjOOIyCWU5SDNeGUKcKVQmLJrvQFYzEGSvWVNoKIIuETZjIB3ZZwZfVXMcJgJ2YajyXRJc JHMrvg6XPQNxNZKlYdCiWVSpPIQlXDCfIGvrZNInRG ScOqvxHWGyXKXwNA4YYuXxQTqtNCFLDmb6XDfkB1z4CXPsCU2CA7Cnz0QbKijkEDGWAJtgPZ6elfYwBD JnPx0QE8rPIpwzSsLtXydfJCB5YdN4FQRnTthvAgZ8BkV2GrIsXIk4AL0rXDY8NJBzINTrTTviMpRxVO HhN1AuDlwvJJJ7DDF9Qbp3NmLnIX8CAa6YSjD7PQM4fZSxVi5CFeH4VwYYAlOhPY4YRNv= ID Date Data Source [id number] 01/03/2020 07:22:19 AM EDT [facility] Name Value Range Interpretation Code Description Data Milena rce(s) Supporting Document(s) Progress Notes [facility] KTXAAc1iXxHTRfXf93/KPHtrSOYlj7NxBTodPHa6KLegCAGqX6KyJJN8tF4wOSD8ZQbZToFoBtNjSWUa lbm [file] EN3OPz0HGeQ8UBR5zVXxMz2JFoP6ONPWWjTlTZ1YBPt= ID Date Data Source [id number] 01/03/2020 06:10:27 AM EDT [facility] Name Value Range Interpretation Code Description Data Milena rce(s) Supporting Document(s) Care Plan [facility] BRVKJl7pEhUBUeWt68/OOXvoPLYhc7HqYIfoLBf2LHxpDLOmY2McDIJ2iE6pGME9EDfIRqGaYkGoBFMq lbm [file] J6IhU7BFbcCUTbTxVwW1JyHJX0ZrioJmXbQO0NHj1KLcL5LMO9xSNuHq7MZqS2EXbEPnEyAL3NZMy= ID Date Data Source [id number] 01/03/2020 06:10:12 AM EDT [facility] Name Value Range Interpretation Code Description Data Milena rce(s) Supporting Document(s) Nursing Note [facility] MKCAIh8qFoOHTuXu36/ZGDriEIWtv3RbAKpzBDv8MPzjYAVyP1WuMIC0hH6kCNA3JTbGThWxQmSwPOSp lbm [file] AgICAgICAgICAgICAgICAgICAgICAgICAgICAgICAgICAgICAgICAgICAgICAgICAgICAgICAgICAgIC AgICAgICAgICAgICAgICAgICAgICAgICAgICAgICAgICAgICANCiAgICAgICAgICAgICAgICAgICAgIC AgICAgICAgICAgICAgICAgICAgICAgICAgICAgICAg ICAgICAgICAgICAgICAgICAgICAgICAgICAgICAgICAgICAgICAgICAgICAgICANCiAgICAgICAgICAg ICAgICAgICAgICAgICAgICAgICAgICAgICAgICAgICAgICAgICAgICAgICAgICAgICAgICAgICAgICAg ICAgICAgICAgICAgICAgICAgICAgICAgICAgICANCi AgICAgICAgICAgICAgICAgICAgICAgICAgICAgICAgICAgICAgICAgICAgICAgICAgICAgICAgICAgIC AgICAgICAgICAgICAgICAgICAgICAgICAgICAgICAgICAgICAgICANCiAgICAgICAgICAgICAgICAgIC AgICAgICAgICAgICAgICAgICAgICAgICAgICAgICAg ICAgICAgICAgICAgICAgICAgICAgICAgICAgICAgICAgICAgICAgICAgICAgICAgICANCiAgICAgICAg ICAgICAgICAgICAgICAgICAgICAgICAgICAgICAgICAgICAgICAgICAgICAgICAgICAgICAgICAgICAg ICAgICAgICAgICAgICAgICAgICAgICAgICAgICAgIC ANCiAgICAgICAgICAgICAgICAgICAgICAgICAgICAgICAgICAgICAgICAgICAgICAgICAgICAgICAgIC AgICAgICAgICAgICAgICAgICAgICAgICAgICAgICAgICAgICAgICAgICANCiAgICAgICAgICAgICAgIC AgICAgICAgICAgICAgICAgICAgICAgICAgICAgICAg ICAgICAgICAgICAgICAgICAgICAgICAgICAgICAgICAgICAgICAgICAgICAgICAgICAgICANCiAgICAg ICAgICAgICAgICAgICAgICAgICAgICAgICAgICAgICAgICAgICAgICAgICAgICAgICAgICAgICAgICAg ICAgICAgICAgICAgICAgICAgICAgICAgICAgICAgIC AgICANCiAgICAgICAgICAgICAgICAgICAgICAgICAgICAgICAgICAgICAgICAgICAgICAgICAgICAgIC AgICAgICAgICAgICAgICAgICAgICAgICAgICAgICAgICAgICAgICAgICAgICANCjw/eHJfT1gbtNYxil L7R9ljGj5EIz0ZUF0qw5IcEMNfGJiuneGaSzqBVrOy ZBDdLqePGub3RIwiRC7VdSZbX4GgX5JgIWwyOF4TIWRiPSUnoQNqPMDyQEXkMcL5ZZDzDRsuRT6LeYNs WBhaYUUvQMIpSQ3AJCJhL210oeDjHF0FXd6OXxYdTZ9qqy0GGbSdLMHgDvkUUqh9JZjbHL0NjKNvxMQq ZsHtBUIJMxSxW2kpf8IdXrBwNHQOSNugYN7Bb7LweM AxDQo+Cj9VOF3kq3SuTLkePyVpNL1clb1SYHiGYkGkY5NvcNwjNS95guShlsgtGq80XRUkyESTSETvwz GSZMmvEQSYVbKnkAViTE6rIB1fSGGyQAL1BgGzGGZPGK5QGOIsDEKykNNkHWOcUJVZCA5JKGzdSXJ2Dn rgikMycZQoCZtqUX6FMBJksmAtOgVsKTRFNIn+Pg0K PB3km8JaVBqaXUNnYE8srh4XJMjKBgMvY8V5cQItP0I2SWtrDa8RRCQaCPXlMkMgCKJGMBlsCE4PUF9r vpE1LQ4BgJWhGMVrHQAlcTRkEYr2T80dtNSeMEagXF7ZLUA+Nacho+Qf2ZBMOnJJHiRDUiBtQgSBQABuDz I4FwZ4PYp3JhO9EvKQ88rHxwzwXpNHolJW3MBX7vAR CdCTNSMT8SyGNhjG7buoMyUjYrVSUEPoDcO01avUNiCWRqTVAvQQDlCt9CDJSxS6VzuwTlsJixnhZxHH EkHFTAYZ2MMFthfvJxrJHdqMqjJF23rIrtQN4CGm2ZDqNpAA8lwg2CvSVmKh2ESSUhCM0GETTmDOAeXQ QgNFR5JRBjMfRkUVsvHAQsQJSdSFO7JSRpTHZcLD1U NfKwPSPlLIi8OtrnINArSYIgvg6GAAYdEHUhUTUjKdDxYETcAAGxOPhaPJAyZHTrTIA0RGIoHYUkVB8L EpAfHNJuPJH2DKTeEGKmSWNuib4DTFVsPQDgISYcEJVjYXWwRTVhXQlvDLDnUBEzIVTmKCYoWIVuBS2L JyQxPTGaILI8PsYuKLMyBILhjq1ZLQDyEAJaZre4AK BmWOFjYASvORgdELYwDNUuEKW5UCEfSGOkHI3YTpSpDCZjXRZnARKfUBDvQILofe7TQSKuRJLdKSN0Cf ZyQTXiGLMfEKvwBTJjSZZ8RkD3SOMwEBElXA0KIwHkTJFeNKW8VEPdBNLbHJMjlm8BRFEtNIEeViA6PC FxGYTgNFWbPEjzCGYhKJT2ZNCpGMMnLTMoNR8BHnJs ZWAlOIs5XVSuBLQqJDFvye6GIFZtEBDxVRE4DROzGFRpSIViZQeyHWTpSTN3CtqbGPUqIMBeSG0ZPkDl IRBpECz3FIDjUZCjTICgks1HZWKvETDyCQP7LaCmCDQwREFnGRjsOCRjHCTkHhKhYEHtSMTrOX9LVhDx LXZfAhW2TkDyQIAfFALmab5IETVwMEOqHUtvLCOlNH BbCULrGKi1vuHkfGLuRVi2SJ7VU4XmwvRgEpIXFr6Xb353CHA0QMVpBb2RZ5dqAq0qPOAuFXUDSd2UKX h3JsC2ZPq5GYjlPLp5LxOfWFkcGKT0ELZyKyY6FxAnUyS+RXnuIUt3OLCtEyK1NIs7IFZxHKJuOrrxGw EdMyFzS7JvWB6bXNKIQj6+FRypnYBvnCkkIPIAHoCzWOQ9LGwcJJAAMa0S ID Date Data Source [id number] 01/02/2020 06:05:45 PM EDT [facility] Name Value Range Interpretation Code Description Data Milena rce(s) Supporting Document(s) Progress Notes [facility] IPJTBo9yZcPSKxOz90/RCHvcUAIjz6QzBZdbQSh7LUdqVJSjU1MuDTE4nD5oLEO9PIpPBqOjUrIoXJZ5 lbm [file] ODbtTBGCXm7H ID Date Data Source [id number] 01/02/2020 06:02:49 PM EDT [facility] Name Value Range Interpretation Code Description Data Milena rce(s) Supporting Document(s) Progress Notes [facility] IQCTKp9cMlKPQpOp45/JNPhoFYEhy5BkWDviYCc0MYwkIRYcW4UcVVU7sR8gPSU3EYjJEhJlBoUhWKG4 lbm [file] AeQ6OCB9uMErVb2EAtI5CaXFJjWrJB3CTEm= ID Date Data Source [id number] 01/02/2020 05:00:43 PM EDT [facility] Name Value Range Interpretation Code Description Data Milena rce(s) Supporting Document(s) Nursing Note [facility] PNFMDc2aIlFGFkEi18/ARDuzAJOoc1PaDFnbKTp2VAaeKOWbO0CzAII7bR7cWDC0YUiHDhYvYeZaCER0 lbm [file] == ID Date Data Source [id number] 01/02/2020 03:51:08 PM EDT [facility] Name Value Range Interpretation Code Description Data Milena rce(s) Supporting Document(s) Treatment Plan [facility] VJLFUo2iBrORRhFo90/EUSlgQDIbs6WkLEmvIXr7MRdkDOWeL5SwEZN7lA9rSEN6VUnWZzNwOiAcHKE5 lbm [file] L3WiahTSSaHPTeSoL4IIEiLXX+EH0gGNi+Ca6Fm0MjddP7pkEnXHqsUmM1By0NAIWZH1PBAg== ID Date Data Source [id number] 01/02/2020 01:48:48 PM EDT [facility] Name Value Range Interpretation Code Description Data Milena rce(s) Supporting Document(s) Nursing Note [facility] GHQGJm8tTpCKYnFb51/CMZqgBJKso9OlKJglFVg1VFabNWOmB2OaDBY3wH4eXBA4DPyARfCpGlEjOMH3 lbm [file] dGE+DQogICAgICAgICAgICAgICAgICAgICAgICAgICAgICAgICAgICAgICAgICAgICAgICAgICAgICAg ICAgICAgICAgICAgICAgICAgICAgICAgICAgICAgICAgICAgICAgICAgICAgDQogICAgICAgICAgICAg ICAgICAgICAgICAgICAgICAgICAgICAgICAgICAgIC AgICAgICAgICAgICAgICAgICAgICAgICAgICAgICAgICAgICAgICAgICAgICAgICAgICAgICAgDQogIC AgICAgICAgICAgICAgICAgICAgICAgICAgICAgICAgICAgICAgICAgICAgICAgICAgICAgICAgICAgIC AgICAgICAgICAgICAgICAgICAgICAgICAgICAgICAg ICAgICAgDQogICAgICAgICAgICAgICAgICAgICAgICAgICAgICAgICAgICAgICAgICAgICAgICAgICAg ICAgICAgICAgICAgICAgICAgICAgICAgICAgICAgICAgICAgICAgICAgICAgICAgDQogICAgICAgICAg ICAgICAgICAgICAgICAgICAgICAgICAgICAgICAgIC AgICAgICAgICAgICAgICAgICAgICAgICAgICAgICAgICAgICAgICAgICAgICAgICAgICAgICAgICAgDQ ogICAgICAgICAgICAgICAgICAgICAgICAgICAgICAgICAgICAgICAgICAgICAgICAgICAgICAgICAgIC AgICAgICAgICAgICAgICAgICAgICAgICAgICAgICAg ICAgICAgICAgDQogICAgICAgICAgICAgICAgICAgICAgICAgICAgICAgICAgICAgICAgICAgICAgICAg ICAgICAgICAgICAgICAgICAgICAgICAgICAgICAgICAgICAgICAgICAgICAgICAgICAgDQogICAgICAg ICAgICAgICAgICAgICAgICAgICAgICAgICAgICAgIC AgICAgICAgICAgICAgICAgICAgICAgICAgICAgICAgICAgICAgICAgICAgICAgICAgICAgICAgICAgIC AgDQogICAgICAgICAgICAgICAgICAgICAgICAgICAgICAgICAgICAgICAgICAgICAgICAgICAgICAgIC AgICAgICAgICAgICAgICAgICAgICAgICAgICAgICAg ICAgICAgICAgICAgDQogICAgICAgICAgICAgICAgICAgICAgICAgICAgICAgICAgICAgICAgICAgICAg GEHiDXCvOFBaPTLaTFFcPNRwUXLlAILjEXNsWGUuPLFjAGTxLJCnQALjJWGaPAYjMVWzPWBfJPz8G7pj EBQvRBKgEP4jPPm1Lb1+TQyUHpPiKVD0xuMxhU6HQF 0wq3JwBZdbGQXaq7OqBNg3GK7BBFLyWEtgDE4GNZhtgz2XDOZwARRkrWQOc7paSgVmPZR3IVScFixsSL 0FJXIsM0nkcbSpTHIzDVKEMQ7LPmIzC4MinF12XDDMLb7+YPxoywLaUhlXNcXqFFLjk4UgQYf8NR6WOU PyMeucy6DbHiHnLMPPJLrtHI4PNXA3WWNaPCDtWb9J EGHpE201jkEuTO8XPm2QFjChGE8oxe9IXcDdTLUwQuyUAjp1MIulQB0BmWAxCTjKmDJlwE7tIE6gtAMl TvndMAUpeIRXAUMxVWKZDbNeyGMnKV2qRE3mJUQpPOGiPzNkQIGITO4JPDMkXCUudZDaCJNxOUNINS3C OVqjKQC2QxxuouUykOHfYJioUJ5KVGWqsxCpTxGvIX BSDQo+Pg4YFB7ck3FgMDqpKLOpMH2cwf0VHTkDGpJhJ3L5uNMwZ2D6FCdpPf0DJDLiCHZfDpUgTOPIXB nqDI3VKP6ofgF8SF4LrOLxHPEsABBqfHSiWYk4D42glBPnSLbjPH0XJXL+Nacho+Hp0NFKKxJHWcQNZuQr AaWSUKPkLdF2KaE5SAa4FgQ5XnBA88yBfplsKoKLqs CK1GEC6nZWNxQLQWCT5TfHZvbW5urzLxZrXrZOOFJfTyE88ypDTcBGYlRDAyIKXtMe9JIWDdF5GfteHi jCvrafJpHSIoIALDCU3XPUrmtoEmzJJkvPakEI27sShoXN5MSm0QKrLkNZ0gvs2DiZTsOr5XUJGeHH3N UOAfLGHwIXCcZPV5DVLtGwYbMLuyEWYnHTAtVBT0LG GeNAUzCI0DOgIrIEFfVIi6DoBaGQSoFAFhyc6MUHSeBHCjTNO7BQSkSDMeNOPrLZniWGXcQOLwELI9EU IdVUXrDH7DXfIkFBZxFNUsHFexUFUwDJAbvi5AZGPcSWRvOBJ0CGCgJVTnLCYhIYhuTTCcMGVpKTB7CR FoYOJpWO7KYkDfPWZgHWW4ImJzDPOmNBRtmr1VFVPa NWGwWqqqRNAjURPoNOGgTHmhQQNwRVPeNaH3VLCcBJWcEX8SDqEfEPLoVGT4ZzHcUZPyUUSuts5JMZUi ONMePKE3IvClNMZfFCBtBZvtWPWnJBM9HXudXYLlRZXySH7NRzCsRBRsHZF3YOakDGFvWVWnha1ZKBPw QBSfWgXfUnMwMZYhHFDmJXpzUHIxWHG4CzN9CIJrIL RwKM6KDpQdJNBjUQb9NKUlYUUaORDrcg6WKDDnCXDgWZA8RANaQKCfZINoGBbjCZKoBJX3XHXlMWXgIT RnGG9YBtJyXUIrCGi2PBObXYXgQGErbl1RSOFkWSWaQSClJYWzFBHoQXZgMNxlAADgVJFuXXW1YTJxIX IlXN3VAmPkCYCpUrV4FrrfDZHrIVPden3LAZQlLQGe DBy4MOMtRDKcNQNtPPb1paUvnKLbIAo7WB5ZU4RlppZjWfWBUs8Mc261DQS4XAFuEe4FZ2hkEq1fQOFa LFRQOq1FIWy4CQXwYVM2MndyBaLeAVQ2XEM3ILhkY8S7TEKrKIR1JJE+WYcwFxYlBTJpNCNpCRU8Fxc0 YSIfVYZ1YKR3Q7J4TUnmVD2aTQUPHf6+DNeneHNqtFyqEALYJqFzFDJ5FLnsMRFIHb6I ID Date Data Source [id number] 01/02/2020 01:43:35 PM EDT [facility] Name Value Range Interpretation Code Description Data Milena rce(s) Supporting Document(s) Care Plan [facility] CXOHQb8kKsQQAhGu67/EXSblSHTpy1PsIAudNWu6SZvjZXLxG8FtXSA2wY9wBRD1NXtFBtYkOlFqETG3 lbm [file] MW0cPOi+Lk8Me8RpybG6vnCnIYggIaByNv6QQICTO8VOLb== ID Date Data Source [id number] 01/02/2020 01:31:45 PM EDT [facility] Name Value Range Interpretation Code Description Data Milena rce(s) Supporting Document(s) Progress Notes [facility] CMRHJy6yJcMVQhVt18/CSShyJMEzr6VrSKwlJIm1AZspYLYnX0VzQCS0fX1cGKR6GAgIBrEdGsAsDDN4 m [file] ICAgICAgICAgICAgICAgICAgICAgICAgICAgICAgIC AgICAgICAgICAgICAgICAgICAgICAgICAgICAgICAgICAgDQogICAgICAgICAgICAgICAgICAgICAgIC AgICAgICAgICAgICAgICAgICAgICAgICAgICAgICAgICAgICAgICAgICAgICAgICAgICAgICAgICAgIC AgICAgICAgICAgICAgICAgDQogICAgICAgICAgICAg ICAgICAgICAgICAgICAgICAgICAgICAgICAgICAgICAgICAgICAgICAgICAgICAgICAgICAgICAgICAg ICAgICAgICAgICAgICAgICAgICAgICAgICAgDQogICAgICAgICAgICAgICAgICAgICAgICAgICAgICAg ICAgICAgICAgICAgICAgICAgICAgICAgICAgICAgIC AgICAgICAgICAgICAgICAgICAgICAgICAgICAgICAgICAgICAgDQogICAgICAgICAgICAgICAgICAgIC AgICAgICAgICAgICAgICAgICAgICAgICAgICAgICAgICAgICAgICAgICAgICAgICAgICAgICAgICAgIC AgICAgICAgICAgICAgICAgICAgDQogICAgICAgICAg ICAgICAgICAgICAgICAgICAgICAgICAgICAgICAgICAgICAgICAgICAgICAgICAgICAgICAgICAgICAg ICAgICAgICAgICAgICAgICAgICAgICAgICAgICAgDQogICAgICAgICAgICAgICAgICAgICAgICAgICAg ICAgICAgICAgICAgICAgICAgICAgICAgICAgICAgIC AgICAgICAgICAgICAgICAgICAgICAgICAgICAgICAgICAgICAgICAgDQogICAgICAgICAgICAgICAgIC AgICAgICAgICAgICAgICAgICAgICAgICAgICAgICAgICAgICAgICAgICAgICAgICAgICAgICAgICAgIC AgICAgICAgICAgICAgICAgICAgICAgDQogICAgICAg ICAgICAgICAgICAgICAgICAgICAgICAgICAgICAgICAgICAgICAgICAgICAgICAgICAgICAgICAgICAg ICAgICAgICAgICAgICAgICAgICAgICAgICAgICAgICAgDQogICAgICAgICAgICAgICAgICAgICAgICAg ICAgICAgICAgICAgICAgICAgICAgICAgICAgICAgIC AlYWAcUTCuBUTwOGFjGXHcCARoMXEvEHOtWQOkESDvLPAfWGCaJVEvTURiRIv1R1erHJDpTBCsDI3sOL d3Jz8+WKzTKwQjENP6wkDwkB1OSO5zz8WpXCdyCPFrj0GwYCp6JG2QPKTlRHihTO9BUDwomo9NZUIrRN RkoBJCd8ypKrOmTOD3NTHlMxlsGU4AHAPcV4ledtHc PUNdLFDGGA5YSvGfO4RfvG95GMDPEd8+NKdxlfFzXsrEKrQ8MYKxp2EdHMx8QY5WFPBlAkskn5DfGhSd NQZGBFxvVB2IWQP2TLP4GBWeQc5ODJQyN104ihDiDV5RMk1QUcJxHC6fcn0OKsWpQLYgDrwKCps4SUdk TG4HgVAwHUcHae7bmfRvhuQOn0LwtePyrRETRIFrqT YzDHDts1VtxsNuaVIkQJ2wCC7eVBFiETXxVaR5BRINNY1TJSDdWWTuqTKiORVjJLOGTD3CFXekOTJ8Qv tgglGaiZGxPEbtBE7YGOCzvmWsGjAmIZKHICw+Em9FVS9to9IeIEzrEuWlEZ7gji2HIQdJAxOxI1B4oV MdZ6L5RTewWs5JWYFgKPTrUtNcDTFWYTnlTD5XGK6y jeM4HM3ZzCTqONDqYTMocMAqQKm3Y00pmPKeGRawHV4SJPC+Nacho+Qi3GJAPqCFVrUJUbRnCpMRKKXsWo M5JrF3SWb3VbP9ZsAD20rYydwrLtWYpdFF5LJQ0cKOXhGXRWKQ5FiMWfsU6ftrFmPFHpNMYWXdGsJ85i iCDvSLQhUPQ4CMUjJx1WGUKrO1PjdgJevVatgwYhWZ VjNINKRU8TDZlmyrBpqTLpuAlnLC58fGkpQH0EXw1TEtVgJO5jis4DcACqOq7HQOLwZK0BDZYwNYDnGN BcQNY0WDGnFvSaSGawKSTnFQXkRHQ1DIEkLBNoVE5PYcZrHNTyCoMpZWPuUTOnULSsjn7XPHCrTIJrSg X7YJIcRMIyVESlCXynCPFiAGJjHXJ9LRUiOXCwKT6H HmLlYFGvOOS2LcEaIMCkSNNyha4QILBwQQFpGWpbEXYsJTHhYEFmDDpxBRMrTXCfUku9MRYvMSZtJQ0Z BbFhYIZbHDV8SJihEBDpXXJvqz7ACCZnIFQvLeC7TiHnZWQbHFYuAEhlYIMoIJK8KWTmZZNaRAEnFH5L JlTzBSUhPPLtCwdaSYUeBGJqzp3TSTNoGPJnGWVzTR IvVWKgCSYdROnvLLEeRTU0HzNhMIYgOOJiFB2IEnJzCRRqOFjtWiTdTQLcFUFlqn2SRFKiSHArRlD0UM KuAHRpYAHtKFclUOSyVVX1FRB1NBWhEEPrEJ7NRcNsANJwOEf2QmPrJBKsZQGbow6PKAGnIYUoRFMzBP GsERZwWXXeWEruUCYvCGG4VUU8ULPsUNGkGY9ALsDv BCUwBUp0KNNbOFTqUSXcpg1SEHJjVWVcGTxrZMVnGIJdQQUxPXmdWNCoSLZmMGNhTQMxMIFnMF7QMaYf CWIxMiTvOULbKOOiZVLhgn2VYTQxVJDfNKlfMSNpTRKqNIUpJWgoVQSoUPJeVSPtVVZnQVXyES0OVlOw WONiBhJvJvZqSWKsYBSdbf4GISBzTCXjHzX5YDDsLN SiBEWfNVu0erJbeZVkLNw9HF0XC1WbknCiTvfWDq7Rp915KFS9JAWvJn0TZ7wvQe6sTHOwLJCRJy4IAC i8JpUdULE5TVf7HyepZVGiSGZ1YvhlHPWnXFjxQNKzQQs+OPu4ZZV3Fax2PoTvXXPqUGIlHhcaGCYiKT I3XsP7PDZnXL8gZVOHFe1+WZaygZHesRbgQQVVNxYsYhH6DXuaULAWEh8N ID Date Data Source [id number] 01/01/2020 10:27:26 PM EDT [facility] Name Value Range Interpretation Code Description Data Milena rce(s) Supporting Document(s) Nursing Note [facility] FBGLKp8jSxFJAyGh17/HYKcmYYPmm4PfCDbkPOs3HXkvUHUmG1WnJIT7zJ0fSLM0GCgLErLfIvFiRNY3 lbm [file] VZ4TWLc= ID Date Data Source [id number] 01/01/2020 10:24:10 PM EDT [facility] Name Value Range Interpretation Code Description Data Milena rce(s) Supporting Document(s) Care Plan [facility] RRITUq4zHiCLXiXn55/RSNjyTUZwn7YmFAubBDq6WDsrIOKmL1XhSSJ1lU8gAAH3GOtFRaBlWtKbYTM6 m [file] [employer]+Ia8XIBWqDWh3J1B4OZFxFNw2M9YZZ2LMQCSvEL ooNJtsTHKcTWn0N3A5PEMyK4JUC8Xnajimld7+NS3TF49BNGSjIVg1X7F4rFNmU5A1mQpTbNX5EA8RBJ 3EcOj5tEDdfE7+BE1FJ8WCBkFxBVf8A8N3wCNmU1M1uIpClDD1NV0XLI3BpSAaWXPwyeMxPh9hD4LKXB sVFlNWLSL7QH2IxLKlER9MaSEPE6CvrSFuDl8qDCoy rVSuuD9mJe2xWTyzDB3FWsTGBZkHPLZ8XD1OjODuVP9TjCJRL7DqdOVuFy6cKXqzhLTlft0+DS9KXCVm Ea6RPd4+DRmavzFsFodVOaGhDDTlh2GlJCg3DW4RZA8znCabYHQ8Ne3SzKK7xZRuM4dTTG6ViCEaP78g qGPbMULnMt8JQsD6fyWoqU9QWH30lMWgm7D2LPGkK4 lwWPqxi65jIDmtLHjNZZ3lRYOXFOfqQHsnNEP1ZtTywsblKMYkRf9OEiUvYEr0iP2xpZM5ZTT0DzptkC XcWIcwVkWmSgSeYxV1yNsgygn2XSoyYQ2qNWrguidbHIGaUib+HRkoSYAaPUYuGznFQSIswR1oghB2hm SlMLzynIDzEj9sl1v7YswfLp9kMy9yCMm6XbXsDfFq MZWiMa4ncT67GDgglvXcMb8TFhIzIJF7I5LbFmpLMMP+OXejYBdzmVx6zGOdQQVkNb0QDETbPRDjQWHk ICAgICAgICAgICAgICAgICAgICAgICAgICAgICAgICAgICAgICAgICAgICAgICAgICAgICAgICAgICAg ICAgICAgICAgICAgICAgICAgICAgICAgICAgICAgIA 0KICAgICAgICAgICAgICAgICAgICAgICAgICAgICAgICAgICAgICAgICAgICAgICAgICAgICAgICAgIC XiVBVoJQOgAPAoAGZkOUOqPQLvHXJtNJNmTQQzDSKwREWxRTFoNMLoMX8QYLBuQHLsPTElJIReLWNuHJ AgICAgICAgICAgICAgICAgICAgICAgICAgICAgICAg LTCcRZMsOGAzIDJmLOCdTNXtGSZeXZOcDRIySMAyYGWxDXPbWSWxIIBvSNXqLVYlESIpAD1UQHGlMEEu ICAgICAgICAgICAgICAgICAgICAgICAgICAgICAgICAgICAgICAgICAgICAgICAgICAgICAgICAgICAg ICAgICAgICAgICAgICAgICAgICAgICAgICAgICAgIC NsYO6KOCTnXIXzKFRmWSZsOPLzUIJgRPOpZZLrQZJpXHHpLHHdUCQzMJFyQSHjNKKbEDKoMDHqWDRsAH GoTRHtKEBkXPClNTKmFCExQYYbFGXeNOFaVRHeLNUmRWLoDZQdAGPlRVFxQZ6FLXTiXLDcUDNiYILxDO AgICAgICAgICAgICAgICAgICAgICAgICAgICAgICAg BBYbQBZxEGBeFGNbIHVeYDJxMDFwNUGrKEBtFDNwQLCpLWIdQIZgJAGuQQUwYHPmONNwVUIgFC8WSWOh ICAgICAgICAgICAgICAgICAgICAgICAgICAgICAgICAgICAgICAgICAgICAgICAgICAgICAgICAgICAg ICAgICAgICAgICAgICAgICAgICAgICAgICAgICAgIC FrRSYdSH9BDLXwNUBuTMTdCZCrDDPdLCUqJLSwUZQfAQYeMXEmGTXjMMAyRVFfAMTiOVOuUITyXPRbUA KlDUCnGYAjFYHfOUHsPUBeAFDnFTJsBXZfGMNuMNYlOUPvANKqZTWmYHHsMUOdTK0JCDKtHPGiWTOhNO AgICAgICAgICAgICAgICAgICAgICAgICAgICAgICAg OZBuBAPlYGBgIFRqNMEgWDArFXEeORVlBFMaIQTxKGFdNSOjXRJyLNRdJUCtHNAkLOGdPQCwMGRqIS0K ICAgICAgICAgICAgICAgICAgICAgICAgICAgICAgICAgICAgICAgICAgICAgICAgICAgICAgICAgICAg ICAgICAgICAgICAgICAgICAgICAgICAgICAgICAgIC MdDVTdJKWmMC4QSS23zRWmg5R8QCHkYA7hfhv/Bh0CFFmhtxXohLYzZY5AXaGrJP2kgn9VFaZmDT7zcn 1NSNsQKuRcP6W4oBYlURUyTQJWAbZxS80uMEteBs07LMluAVRbTbPcJKb6Ze9ANqCiV4njUMZyLzA5SI WfUwJlDOyfMY0Mh3OotSVrAMe+Hf3EPJ0av8HdFWrc DfYgZC0dhd9DTDvZVgSlN6BttvR5DVXaOGXyPo7CAELmLWNkyOBqBbVwJCPTHtIuC2CyyN23VPWNCn4+ JIssimDhRcvYHsEiMSSgk4VnFEu0VP7BOVScNCe8wAKpV8RzLNJKcASdXSX8UDAohQeyXHAzG5PbVOjw Ie0rIUGzDLHnCelfFmAgMAVaPZaxLgDPVNnRIpLmG7 Xhz9BnXhL2AMCtRbQpWDkvJSYhZjA5SY63sZrpFR4LNVHuHTMwPG75TERpEKAsCm7ATf1QAfGxVW0cbw 9AUdFxWYAzGuvGAhw3SUaoOV1NtAToM3OvmPCzk1gJSyDhN4QLCVGqGLItDk5VKOZqAlZsPAWoAFeoPL 2bBCPgQQTKzHnkxvF3AM8TUH4nbjJlLN1QPuZnOa6w Ce2MSwTcW1WdY2PvJKIfVZDDYFdeUX1BKCslGT5iYW5Ur5EXdLOkkH5jwp2JVDBaAAAfQvrvrp0MFodi X0Q3cYtwCTSuLqPkNDMTTEfxNG1EGURmDOP5GBSbOFMuOSRJIqPfD72zTE8RM5Dry23uFaJ9TXAwTnDw VGwbGE30xAzuhtXnmQXctOpbEM7VYv4+DQplbmRvYm pTFqkaZPTKOjBqFrJNAvKzDUGcHXIhJWZgWmS5BgYxKd9SAOFxWRYdLAUcVgSmQPNdWHQvKUarHENoZV E0VRX9AXMpAYYdNI1LBuZbHORsPcKoOSRiQMHhKJHecd3UXVJiUHGeZKZ4OyWkNKItBLNoDUdrAGThKE KqABDoYMKyIZNaAQ1QByKwABQfYVTgRPJsLQFjBKKt sa8SJQKuTQAoTuO3PnJdGGNsOPLfBRkqCIQnFCAsGfSwPLCdSMBjMC4XCkNmCRPnTHI2UJmvJMEiBSRy tt4VLDDnZPIcLbNrTqCeWUNsQPAkHAbgCXCrSAHeBmT1ILSsEGLwUL6HYlQcNNNpITT2WTUxRJUjQPBs ru5BUCBvCXLyNfCeZICuXJOoYXZuNChyVZRbYZA0KQ ZaGJEqHECpPG3YDxOkTQMcZJB6ZmTcRHQhNWRbmj2NNIXtWMOhFrEyHGRxFCKuQBVgETikBBClAMK7EI D2RXAoVHOgXR2ECaWwYKGuEEsyBXdhEVOdZSPvtx0OWHJhWQVjMQV5ApTsVRPyHTDcCOjcDHQoUUP5FO N9UECuBXHiSB2DZpGcIXEpVYj0DuWaNUKbCHSexn2S EAVqHVTqFVVqOVAyPOBqYFJiCGnwCOAlUMQmVzxxDBNlKYLbJE9KSpAsAZNlNoR2ICVyDBApXDYnnt1P wRFgrIhmqj5TFFxLZa0PbEvgOEM8ALshTv3ncKYiFLSkUTLHLl2QmfFnEYJhBUOCWGamYPKiHSg2KPXs QQB2EDP4JaFcMMDvFhAcI3DyXHmaDRKcZwOqYcD2FP Y3ANDuPvlmNOu7NjVpFVFdDxDcQyVkL0ScK2CsSaP+HK2oMTy+Uc8Ha2JnawU9pbMqOHzxCOi4VB8PTQ UZI6GNAx== ID Date Data Source [id number] 01/01/2020 05:52:35 PM EDT [facility] Name Value Range Interpretation Code Description Data Milena rce(s) Supporting Document(s) Nursing Note [facility] PTGRJm0oDtLUOmId34/ALYnoOCBcu5XvINelZXb8NAjkPCViQ6PxLIN9bW8eQIQ2SQsQUpBkHpNdAMK2 lbm [file] Drug Safety Scientist+iFJ3njQj8CJoaAk5Kxr1mCzq6s4bQ/CjR9gwa3l bY2E6aRj1BLp2gKO8A46uSO/OOqwr0GztLV+VMr5mCsTQig1JEOKTx3ob2RTIwwbo/2llJeUaxRVL06e iXSRxzqnqtLA66HpAumglzLewEVt0s5Nw18tGF2kpZMx+/4twD1Tnv6MkK7DYfH3wVb3pZNDAubo6d8r Etk4zAR4tNHcndb85UJvU1WmoEk5Hc0bqP20zXJ7ue 5ck5DefzOexE0ggOZwJtQZDNM/Mxd6eCIExN6ZR0aCh529uCO1gASR2UmiuSGuN5nQwmbdOtDy7vJRDI 4jA5sFixFlJcXieDD43C5qHPtOf/7zA5dOwS9kVln4wtNBnFRce+QWjGPWw6/LDLejj8psAuJ+5Mx96G J10zDKPdIhA49c3oTntstyFaH6ClHDN4HlMwZkyTHL zeBxpxuPPbhwAeoviVYP8yb46P7lj96fC5Z0ZnMLF8Pey8aQR+r77BUx8aWhLiE3YkqafAlkvbDIaU3q wOSVkadHayEyeL4lXrF2qevM8I95Y62SQ7yn9c8cSV7wu2qq5YOFXlE6A5JV8hCuUYYPnl6u75ZrL5BG 1rTz0kjyT1oXlt+1tNz192QzCvKV/SHwxFM0+DaoNg xNl8ulwNa5qASKZe6V5wGZaeNQ26jxCwTpFNd00dxedpEMWtDbgD8YFN13Dh/sami/hWiWAJpEP6buzdQ [file] BaKOxaEAXwMl3RJCCMT5IWXb== ID Date Data Source [id number] 01/01/2020 04:00:56 PM EDT [facility] Name Value Range Interpretation Code Description Data Milena rce(s) Supporting Document(s) Progress Notes [facility] BYMYXq8cGdURTdNx43/MENynIZYnf6AjTIxfUOm8GGoeZDTfV3KeHGK0cT4xUTH0IWbQBvMtVpDmOGJ8 lbm [file] AgICAgICAgICAgICAgICAgICAgICAgICAgICAgICAgICAgICAgICAgICAgICAgICAgICAgICAgICAgIC AgICAgDQogICAgICAgICAgICAgICAgICAgICAgICAg ICAgICAgICAgICAgICAgICAgICAgICAgICAgICAgICAgICAgICAgICAgICAgICAgICAgICAgICAgICAg ICAgICAgICAgICAgICAgDQogICAgICAgICAgICAgICAgICAgICAgICAgICAgICAgICAgICAgICAgICAg ICAgICAgICAgICAgICAgICAgICAgICAgICAgICAgIC AgICAgICAgICAgICAgICAgICAgICAgICAgDQogICAgICAgICAgICAgICAgICAgICAgICAgICAgICAgIC AgICAgICAgICAgICAgICAgICAgICAgICAgICAgICAgICAgICAgICAgICAgICAgICAgICAgICAgICAgIC AgICAgICAgDQogICAgICAgICAgICAgICAgICAgICAg ICAgICAgICAgICAgICAgICAgICAgICAgICAgICAgICAgICAgICAgICAgICAgICAgICAgICAgICAgICAg ICAgICAgICAgICAgICAgICAgDQogICAgICAgICAgICAgICAgICAgICAgICAgICAgICAgICAgICAgICAg ICAgICAgICAgICAgICAgICAgICAgICAgICAgICAgIC AgICAgICAgICAgICAgICAgICAgICAgICAgICAgDQogICAgICAgICAgICAgICAgICAgICAgICAgICAgIC AgICAgICAgICAgICAgICAgICAgICAgICAgICAgICAgICAgICAgICAgICAgICAgICAgICAgICAgICAgIC AgICAgICAgICAgDQogICAgICAgICAgICAgICAgICAg ICAgICAgICAgICAgICAgICAgICAgICAgICAgICAgICAgICAgICAgICAgICAgICAgICAgICAgICAgICAg ICAgICAgICAgICAgICAgICAgICAgDQogICAgICAgICAgICAgICAgICAgICAgICAgICAgICAgICAgICAg ICAgICAgICAgICAgICAgICAgICAgICAgICAgICAgIC AgICAgICAgICAgICAgICAgICAgICAgICAgICAgICAgDQogICAgICAgICAgICAgICAgICAgICAgICAgIC AgICAgICAgICAgICAgICAgICAgICAgICAgICAgICAgICAgICAgICAgICAgICAgICAgICAgICAgICAgIC UxWIIbLPOeUQOlVWPlKWw1E9qjRNSuKHVdIF9lEEc3 Jz8+FBxXKkXtAZZ1dlKgwK9GAQ8hf0YtVIpsEJYsy2LfDKc2KU6BYACrLEveJT9HOGzwrn8MWUMtOWPf nYVFy4uqVhSjOBZ1LUHaQflpTH1BEWJjM3epcaXmWYLhBNGWMG3ZApCrO7GhkC08CASUAa8+DQplbmRv CjaNMkK8EMHxk9LmRJa8YP5DOQTxOfvti9ApKtFgAH LIHFemQS0FPOM0IXP4NMDgTa1BOSNqX942hqYrYE5ULg3KUbSiJB2suk6QYwVsVYRwEvmKRqk1SKahFB 3EdMCfRPrQsd1pesKvpyNOf9PihgXaqYYFRNJxfINcUWPpq6KpcrBdaXMkUD0eJA1rESRgFAEeQjB9TE HVNE8OQSCwZPLeuUAjYQYrPLSYOI1YNDadCNY3Keid bsDikDOwNCezJU9EPBMjcoCwBsDiHOBEAPd+Yd2SEA5qs4EdCNweRuExGO3jfq0HJZqIAmLuV0X8kDBj X9U6HJiwKa5GRVGxLHGaGlQqJPBPDWaaEF5PZU2vsaG5NM6OhQFnKQBwJCJawUSjXFh4N13gmINnUDeb XN2JBZR+Nacho+Hk3BRFXgHEHiBIPaSrQdBMUUTeMaZ8 IaS6MCs7ZfC7BkTG77bMfgecXdSLneMB1QFB5jFJVcLDHTOU7IpUMbqZ9wflLkSSXuRTWEDtHpB62yoI DkVANuQKO1QRVfXx4HOLFgB3YmifCesEjclvUeXVIdQINJIS7OUXmiywOedGPdyOpkUJ36oStlLU7HLg 4QBoKoZO9ksw0RiIPkBf9VJXTrTM1WVQQoBCRyAZSb RXO0KIZuUhLzAEprJWAbARYzFUM6QDQqIWYbOY5HQbCuCMOgMjMeHUSkXQMvTLOeef0UMNFaPKMaIAv9 NdBqSYXxDBVmJOpdRJNcFOYpJIN0AUIrETEiSI6RYgEiCZYaVVGvUUSaJVOqXIIwnl1KQJVnBHTcPPOj SnHyJDUcZMGvNMmnPMUbOXPnGGb0LRMiRARwQY2NLr EvZINqKVH5BaWwCZUlHGKhzx6YSHDtZJGoMlz7PVZmQVEtRNQfWEtnRKSuEXBbPYH3XHYeLQOvDR3YUy ZuNKJjVZTyEOKcNZLzTPTexs7LNVKwXPUlREZ0VICdWXZcHBHsBDkhEWOhSKV6LTG6LSYqZXIhVO9LTs VoUTIzAFL0YyZyFRTcVPGqvj3MRZQiGTIbLvK0VkRv IMAnRYZtLOplKRVbFNS7CvVtPUGdWILoPP0HRhXdFJDnLTy7UFgkNIAtSPOqvm9HYFRvCIHlJAYjARAw PBWyLUYcCQiuKOTsILY8XOxjXUUlEGJvCZ1TVaIdUBPrTTo4BeDlQZGnVHOqyb1MBNAdXTWkWOcqBaUw GXMlGIKjOZsrRROqOOM8VNn4NOGqIQJxPV7VWrCoVD AzWeFiPhTfKCZxGYAsdj8IVZXuESRrSLNxChGqAJFgADKrDElhTXQiTAQxHRKjISGoHRFoFN1VUhTtQR BcMzJtDCMrAGBdOSQsgg1HTWVtEWAzNzC6YtWcEYHkTYUuILg4yyCxwQVmDZw0AF1JH9MvrmZcZvyLBd 6Fb541TCT1FEThJv9KV8sqCy9eFYWxKQJSJx5FUPm0 YfXqGCDgKIEuRRmuRhYvPvD8TRXeMDN6Q3LzVYFiTTn+NTkhLoRvAMW1YiYbIFMxDBKnMFj6UrQvNPe0 QrMiZiDqJy9lZFWYAo5+IEpwqYOthOtnMRGMPrLhNMYgIQjmMVGETb0W ID Date Data Source [id number] 01/01/2020 03:59:31 PM EDT [facility] Name Value Range Interpretation Code Description Data Milena rce(s) Supporting Document(s) Progress Notes [facility] LLISRn3yPtQNAhIp57/RKUfmAQYco3ErRWyfECf5MKgkHWKwB3BiICT5bQ1nUZI5AJeARyKtHkQlRNU0 lbm RmWgjMZwJeYXLgDgdNKtMrHVlwUkdeiYKaXB9YoMB9ISGsO91zFHJbRELkT0ZjCHZsEEZ+Pi1CDBVetL RwEI0OIovR1Ydxb5v18T0V/wNxo24PbdCvMGjHogPamjAx5ttjDWjBubnLXi2H/shkOYX//HJAbg7M8o SqcHq3J/rR0D8pnf3oz9H301/gYA5523k6f/81zSTr [file] YFt2ABidaR4V6NCM9iBzxl3U+xesg+LMUupjxzE5YlOLuZuLjhJAkUmzT5QuaJ2ZhAg+SV7IWi+nK+[employer]station [employer]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 [file] AgICAgICAgICAgICAgICAgICAgICAgICAgICAgICAg ICAgICAgICAgICAgICAgICAgICAgICAgICAgICAgICAgICAgICAgICAgDQogICAgICAgICAgICAgICAg ICAgICAgICAgICAgICAgICAgICAgICAgICAgICAgICAgICAgICAgICAgICAgICAgICAgICAgICAgICAg ICAgICAgICAgICAgICAgICAgICAgICAgDQogICAgIC AgICAgICAgICAgICAgICAgICAgICAgICAgICAgICAgICAgICAgICAgICAgICAgICAgICAgICAgICAgIC AgICAgICAgICAgICAgICAgICAgICAgICAgICAgICAgICAgDQogICAgICAgICAgICAgICAgICAgICAgIC AgICAgICAgICAgICAgICAgICAgICAgICAgICAgICAg ICAgICAgICAgICAgICAgICAgICAgICAgICAgICAgICAgICAgICAgICAgICAgDQogICAgICAgICAgICAg ICAgICAgICAgICAgICAgICAgICAgICAgICAgICAgICAgICAgICAgICAgICAgICAgICAgICAgICAgICAg ICAgICAgICAgICAgICAgICAgICAgICAgICAgDQogIC AgICAgICAgICAgICAgICAgICAgICAgICAgICAgICAgICAgICAgICAgICAgICAgICAgICAgICAgICAgIC AgICAgICAgICAgICAgICAgICAgICAgICAgICAgICAgICAgICAgDQogICAgICAgICAgICAgICAgICAgIC AgICAgICAgICAgICAgICAgICAgICAgICAgICAgICAg ICAgICAgICAgICAgICAgICAgICAgICAgICAgICAgICAgICAgICAgICAgICAgICAgDQogICAgICAgICAg ICAgICAgICAgICAgICAgICAgICAgICAgICAgICAgICAgICAgICAgICAgICAgICAgICAgICAgICAgICAg ICAgICAgICAgICAgICAgICAgICAgICAgICAgICAgDQ ogICAgICAgICAgICAgICAgICAgICAgICAgICAgICAgICAgICAgICAgICAgICAgICAgICAgICAgICAgIC AgICAgICAgICAgICAgICAgICAgICAgICAgICAgICAgICAgICAgICAgDQogICAgICAgICAgICAgICAgIC AgICAgICAgICAgICAgICAgICAgICAgICAgICAgICAg XCZeBUZhPNKeRLPcYMLrNVZkNRDiSLNxBFDoGWFoRBRbKTUbCAMzJITkVZRvLKHvISDnFRy5S6rdDZYf JAJwAG4hXEc3Mq4+GJnXPiPgION6tmXvoE1DOS9nd3GfFDnkWATji6ZdOIb9LI3KJOKcBGbaDJ8PEYst hy8ZFEOmJZNglSQRk0nxNzBzHUJ8MCQcIwzsVQ3VVF FoC0zcxeYlQKAnZWZCHBzgKPADCXavURMLQZ3XJkTxP7CgzG82BYVULj9+DQplbmRvYmoNCjMyIDAgb2 FoJBw5GF5WKJOeYqxxb1DfAfMkKBPLPSnlDO4VVET6MNPbXHUbOi4HSUMeA118jqCpJN2PCl7SBgNvAB 0ehd3UQbBuPPToGybKYva4MDcnLH2ZnJLfJFgZyz1f bmUfneCRu9RzbzCwkDCWTDQdxHGiYTNhm9PgtdOzqZQzTW6uZX5rFLWqLIDlUyV9ZYOUTS9GPMXpMAYs fODjFUZcBSZGRQ5IWUlzGSQ8ChopyqFfbTNuINlvAG4MUMZxarHlVyInFBMHYCd+Fc2FKN5ur4NgGIdv QWKsLX6bfl8ITDcQXoVkC6O8ySWdA3Z8PXasKf6ZVS TyFVViHkEqTKNPGAecNV9VYK5cjoK1HV3WkTMcHAExJTQtmQYhOYe9S30dzZSfSZxiIK0BQRK+Nacho+Pg 8QFGJbDYGsWGKbXnSjIJMUYuItF0JpA5EHe6LpU5OvDX11yIhtaeMlPNsfSK2JGD0sMZZjBSYXHF1IuV PlqU5dpvBoUdKuLOBHUwJlL14tnXZlKBSaIGEmXYAg Kf9LKLTzQ6LjegRgwHkpwjPeRTDjRKZDIB1WCCbwhaEcbTIfbOynXX09tYzgZI8NZo3LUqAbEG1cjr1X wZNhWp8SYHUsIN2GJHYnDITuBUWlDHG0FZUiEuJuSPilGCXdJEFzPUV0QYVxRDXrZD4UAuXuZZCwWrD5 WYicOZDjIRKwzf8YTPRaPAAuPrV5CLYiHOTaTHRfFE agQMStMVNfUVK1YWWgFPAjSX1HOoZrDNLaKOQoXUHuPNAvWTIlcm6AGMIsEBNqQmK2NKJeFOJkLEUtXB lyYSHkNZJ8ErhdJGEhSMPiGS5SPzJwTQSoEKW1OAJjXKGsPTEdqc2JIVQvGGKwXDF0KgPzIYWqKTElBG uyFJDuGWE6CyVeXLZbJALuUT4MAdUaMVGwQKW4GnZg BHKcTFGupf6APFHdABJiYde3YwKsAVXxUXLaCKraCXBdURF5ZHHzRPChBZEmCH8IEkOtTEVvRHmmEKKa KICvGVSymx6PZBKcRXOuZWKeJkDlRYQjJFHzQZwuQFDvSDO9OwpzYMNeGIXwLS9UCpFgTCPfLfT0Nqay IVAyFZAywy3PKCDoVKKiHCT4PVUkVBRtWHZkNEjnQN XtGBEhIqT0ESKxQJVyAU0GWoNzKXDlUpY3UETwOMLaHHJdud9PSYCbGHRuCIP3JVBnNURwTNUtAFsxMJ LdRTXvXZoiMIDbJUCxVF5WMtUbHXDcJmA1LYTrJRVuCPItvm5PNOZhRCXhEfk5ZxKwXEEoXVVnXKvlJD UrSIDkJKN7PPZfQGDbJT1OOhTtHGAiOzZfOZcmVSIj AKEzyi2YMNKlSZJbWUN8FcNgAUZoMXYhIIifHDZwTPJ8JjN1QUTmHLTeXO0UDrSeKYMgQfDqBDImSSIb JNIeua6OCPWsZYQdXTF0NyFxQHZiBMTmIMnjCAGzTJN3WVZ0DSZoGXLaXR5KToBnFIQiKxr8DlQkHRPz TDRugg7GCIUfNAMbYiG3ApPhEAVdOUVfSLwoHMIcZV P9WwgdYSIwSIDxYZ1JZqLaRDeeSPJMGde9UKeaW4g4KRIyUV9VX3Luw2KqYzCfFNCLUFufEF3huaBdAA FnAy6VE8iEVzb2MUUzETH0YMOpIHioOJD7RmJwUuN3OIylAzR9MKEgRh4oPPvuSmQdGiEzJ7W9UGY6OZ ZyXQS1AwQ6RTEtDgs6LqIqZySjIJ3EXl4EPxK1AEW2yPMeCi4SYmg6UrYTAoRqSG5QHMu= ID Date Data Source [id number] 01/01/2020 11:30:12 AM EDT [facility] Name Value Range Interpretation Code Description Data Milena rce(s) Supporting Document(s) Care Plan [facility] TURXOa0hOoLIVvQx41/VOEpmXSAxy0GrVHigNKh6WVpiXLPlQ2OpSZG9oL7gZBH4DBmLSeHwPhHzCDD5 lbm BbUzfTAwNnHBXgXmyRNlHeORycHrksgNSsNA1VwEC4UOZoM11sLUKdXUWbK2GrGECbARL+Mc5YVJAbvC DeID9CQduP8MyGx8oRFI6J3P/VPwX86r98H6MbpYe6qBQ5i2r5cEkTmoF6tctS7QF41X3qDYon1C7TzY IQ+0AOdne+rd3oBtcN2a7wZB8qeDI/21ebSvawYD/+ mUsoiIvn104vDxPO8E6mgOB/KvHlgUGqrDTokU+PBjT6HmJjyhNg0P6JQe/KW7yvr84GmsGuNa3V4EkY O7/udNkWaZ80AEeoBNl2gURoll3yc501YgP/mNDa8/JsLGECWUDaDStGemQCEzNeQiYvBLJwBB1TJlP5 SODYHMa2vJRuHRmh18qQYMLSZnTB+LQQRUUmNlBPcH [file] 3Gni2wyqbRRoGh+cU/wYeh80/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 [file] Hfkewg1CgXZNiw1NNnLDl6nJ49WzQ+Q63RoyhZ8Y8ynf0R+e0ZczBm1USj45EHAUKaYj55ul62K4+conference assistant [file] 5WOyR0SDV8fOHeYn4CYoN8DIdPEtAdTD4LAZz= ID Date Data Source [id number] 01/01/2020 11:20:03 AM EDT [facility] Name Value Range Interpretation Code Description Data Milena rce(s) Supporting Document(s) Progress Notes [facility] YQZBMp8mHmJEHsEv45/NQFgnNEEkw2ApOWqpAKs7TRddZIYjL6MoJST4jD8mKGB3MYmMFqLqWjKkASP7 lbm [file] silva [file] AgICAgICAgICAgICAgICAgICAgICAgICAgICAgICAg ICAgICAgICAgICAgICAgICAgICAgICAgICAgICAgICANCiAgICAgICAgICAgICAgICAgICAgICAgICAg ICAgICAgICAgICAgICAgICAgICAgICAgICAgICAgICAgICAgICAgICAgICAgICAgICAgICAgICAgICAg ICAgICAgICAgICAgICANCiAgICAgICAgICAgICAgIC AgICAgICAgICAgICAgICAgICAgICAgICAgICAgICAgICAgICAgICAgICAgICAgICAgICAgICAgICAgIC AgICAgICAgICAgICAgICAgICAgICAgICANCiAgICAgICAgICAgICAgICAgICAgICAgICAgICAgICAgIC AgICAgICAgICAgICAgICAgICAgICAgICAgICAgICAg ICAgICAgICAgICAgICAgICAgICAgICAgICAgICAgICAgICANCiAgICAgICAgICAgICAgICAgICAgICAg ICAgICAgICAgICAgICAgICAgICAgICAgICAgICAgICAgICAgICAgICAgICAgICAgICAgICAgICAgICAg ICAgICAgICAgICAgICAgICANCiAgICAgICAgICAgIC AgICAgICAgICAgICAgICAgICAgICAgICAgICAgICAgICAgICAgICAgICAgICAgICAgICAgICAgICAgIC AgICAgICAgICAgICAgICAgICAgICAgICAgICANCiAgICAgICAgICAgICAgICAgICAgICAgICAgICAgIC AgICAgICAgICAgICAgICAgICAgICAgICAgICAgICAg ICAgICAgICAgICAgICAgICAgICAgICAgICAgICAgICAgICAgICANCiAgICAgICAgICAgICAgICAgICAg ICAgICAgICAgICAgICAgICAgICAgICAgICAgICAgICAgICAgICAgICAgICAgICAgICAgICAgICAgICAg ICAgICAgICAgICAgICAgICAgICANCiAgICAgICAgIC AgICAgICAgICAgICAgICAgICAgICAgICAgICAgICAgICAgICAgICAgICAgICAgICAgICAgICAgICAgIC AgICAgICAgICAgICAgICAgICAgICAgICAgICAgICANCiAgICAgICAgICAgICAgICAgICAgICAgICAgIC AgICAgICAgICAgICAgICAgICAgICAgICAgICAgICAg ICAgICAgICAgICAgICAgICAgICAgICAgICAgICAgICAgICAgICAgICANCjw/gCFjK1tevJBrohA4W7vb Rr9JZm9TMT7pz9SrBSUdQKzwelMhIqzMTsAgRZLsHbcWDhm6PLvoJQ0IgMRqY3LuN6NdSVixME9YRRVo PUNdfYWoEIKqNDTvOcB6MRYrWBhnXV4OsDQrPQolPM HdWUWyJY0CPUHcV805udXaMR6QYp4BAfVgVY0sis8KGbLoQATjYiiGSeu9ZLsjSW9YkPZleORuVvHiHF RKVpToZ1ceu8WgQiDiSHDMATsgGZ6Kk9XfmQCcUHy+Wq1LQV4gf9AeMFvzWdFgDB2lyi4RTKbENpNiT3 EhcCnuHEKeo8ooXZFcJW9qxNZjLYZ8KEgmiHPjNFEF SAOqHXToUIM6XONeAwY8FgEkJwNnPXI0REhpEQ0fEUfdPF2MHWG1NFaoUUHoKPQyA4qGMqPtLHhtTHIl jSzxSK1GHtWcZ4BhhjZcdLPcFZAhCCSSXk9+LUrhfaPwLmqTMrQ2QKDbm5KgXXj3MV4GQYDtTDxiCS7P EDXsyG5cQGatMY0QGpMkZlMeGPWVBdSaY35khETtAY g6W9HgEaCoBCXjJeylYKWmQRwcRqYxQOMlDuTyHRedXN7+ID4+UOioXC3UBWsnemSuIFGyQz5ZNBGhSR HlVB2yQHNcASDxC6R6iGvoUEKQJlXpS1cogkcvXG6tOKEhT267xHvikfShMHH5EBWdPv5DEWKiCQA7EY HveWKhJhLmWZJWGZufHK4DmMAlIGE5zT9oVVfgSYMf EPQsL8nQAcGyjCjbQA97xOqxqqKctQKrOLf+Tl4ZNV8fm9WtKPl3qjVvMZivTJP5BQsrKIOpEJYoXZMz VBD1GXL3LZZHTqMcBCJxBNVnLDlqXDXiUNIvhn9JDAYbLNZrBNN1MKPkPUExHLThKWymBQVcXUUrOEHq WKTcXNSiOC5CHdWfUSQtVURnJCavWJSoTFZmgn5GDO LqBOKyNPM2LJJdBZDfUEFeUGtqURJcJSKuXTg3EIEtAHPvKJ1NVzOjPOAbXMA8PuRnDYTtHXGiee9AAB UzUWPtWbnnCMPpLCNcZGIiHQjrWDLiWRWdLCH1PFXwTOGaVU8ZPwUvFKLyZHP2YbcgKLEjUVFxyf7STO MnQCCcDAX6CYDwOOWsFTQbNNinCFXoFAY1MbZ9GOKb KVZqRF0BWgTyFTZtCHO8QDCeOTKkDNEmxz8VNOKkXDIyRmyuVbQeYZCtXAKrNGckRMHuCWM9ESJjCDZl GWQvQV5PYvVzRQEnMZfqTiAlAAXkDLDrzk0FZIJtUZLwPoLwNrPaAEFkBDZpWWhkICWpNQY6LCHhJQQx ZRQcGY6FTmTjWWWgBDm8SMIaGAHdSNKwzi6YDHGoYG ZlYRcxIDGwECBkEFRdJOvaZHPcWIW4GwakHJJyEMJlKG2FDjUmPQXvFGu6BFRlLDVyEBQyye2JRKOdZZ VcWCCnPCFxADRrBEQcTWpsAFLmPCEuCCKkYNHuXCVoQI6QMrAoNRHfAxO4KBraITPcQIRhcd3SMWSlXJ MxFfF0WLXoPAUlTFUsVFwiXPBlKCJeMiS5SWBpTVZt FI4IOmJlUMcpCXLKEdx7FDrgL8g8ZTAdZI3GA8Ylu2NgVrvyLBVLCMudSY9ivkRoOZKoSd4QB8xKUco7 NnJ9PHAoLTDaUSYnITi6NyOcOaSqIoY4DQR6D9EvNQ2uYVlrXrbaYAT2GwO2BrEtEGIwJVShTcZ9Rea6 QWTmQVLgZiUaAX2EWl7RTnW4MJA6sVGkWe4WPwR1CaMLNuFdAH4RSHq= ID Date Data Source [id number] 01/01/2020 07:34:00 AM EDT [facility] Name Value Range Interpretation Code Description Data Milena rce(s) Supporting Document(s) Triglycerides 175 mg/dl 30-200 Normal (applies to non-numeric re sults) [facility] N-Acetylcysteine (NAC) and Metamizole nettles ve the potential to falselydepress Triglyceride results. Baseline values before medication adminstration are recommended. Cholesterol 162 mg/dl 0-200 Normal (applies to non-numeric resu lts) [facility] HDL Cholesterol 47 mg/dl 30-70 Normal (applies to non-numeric results) [facility] N-Acetylcysteine (NAC) and Metamizole nettles ve the potential to falselydepress HDL Cholesterol results. Baseline values before medication adminstration are recommended. LDL Cholesterol 80.0 mg/dl 0.0-100.0 Normal (applies to non-numeric results) [facility] Cholesterol/ HDL Ratio 3.4 0.0-5.0 Normal (applies to non-n umeric results) [facility] LDL/HDL Ratio 1.7 [facility] The above 6 analytes were performed by [facility] [id number] [place] [address], ,[place] [address] ID Date Data Source [id number] 01/01/2020 07:34:00 AM EDT [facility] Name Value Range Interpretation Code Description Data Milena rce(s) Supporting Document(s) AST 53 IU/L 15-37 Above high normal [facility] Sulfasalazine and sulfapyridine have the potential to falsely depressAspartate Aminotransferase results. Baseline values before medication administration are recommended. ALT 100 IU/L 16-61 Above high normal [facility] Sulfasalazine and sulfapyridine have the potential to falsely depressAlanine Aminotransferase results. Baseline values before medication administration are recommended. Alkaline Phosphatase 83 mIU/ml 50-136 Normal (applies to non-num giles results) [facility] Total Bilirubin 0.30 mg/dl 0.20-1.00 Normal (applies to non-numeric results) [facility] Blood Urea Nitrogen 18 mg/dl 7-18 Normal (applies to non-nume courtney results) [facility] Creatinine 0.83 mg/dl 0.67-1.17 Normal (applies to non-numeric resul ts) [facility] N-Acetylcysteine (NAC) and Metamizole nettles ve the potential to falselydepress Creatinine results. Baseline values before medication adminstration are recommended. Patients undergoing treatment with phenindione will have falselydepressed results. Patients on phenindione therapy should be tested with an alternativeCREA method.Toxic levels of acetaminophen may lead to falsely depressed results forpatient samples. Glomerular Filtration Rate >90.00 mL/min/1.73m2 [facility] GFR Reference Ranges:Normal Function or Mild Renal Disease,if clinically at risk:>or= 60Moderately decreased:30 - 59Severely decreased:15 - 29Renal Failure:<15 Please note that the MDRD equation requires an additional adjustment forAfrican-Americans (multiply the GFR result by 1.210).Glomarular Filtration Rate (GFR) is estimated based on the MDRDequation, which assumes a steady state for creatinine (Priya Int Med 139/2 137-149, 2003), as recommended by the NationalKidney Disease Education Program in conjunction with the National Institutes of Health and the National KidneyFoundation. The [place] method used in calculating this result is traceable to IDMS standards. Glucose 94 mg/dl 70-110 Normal (applies to non-numeric resul ts) [facility] Sulfasalazine has the potential to false ly depress Glucose results. Sulfapyridine has the potential to falsely elevate Glucose results. Baseline values before medication administration are recommended. Calcium 9.1 mg/dl 8.5-10.1 Normal (applies to non-numeric resul ts) [facility] Total Protein 7.1 g/dl 6.4-8.2 Normal (applies to non-numeric re sults) [facility] Albumin 3.3 g/dl 3.4-5.0 Below low normal [facility] Sodium 140 mEq/L 136-145 Normal (applies to non-numeric resul ts) [facility] Potassium 3.8 mEq/L 3.5-5.1 Normal (applies to non-numeric resul ts) [facility] Chloride 107.0 mEq/L 98.0-107.0 Normal (applies to non-numeric resu lts) [facility] Carbon Dioxide 27.2 mMol/L 21.0-32.0 Normal (applies to non-numeric results) [facility] Anion Gap 9.6 7.0-15.0 Normal (applies to non-numeric resul ts) [facility] The above 16 analytes were performed by [facility] [address],[facility]#: [id number],[place] [address] ID Date Data Source [id number] 01/01/2020 04:58:46 AM EDT [facility] Name Value Range Interpretation Code Description Data Milena rce(s) Supporting Document(s) Nursing Note [facility] LLDWMm5rLoQMPoTw12/JRQssYBNhi3JiJOhnXFb2SNppGLYfQ2EtEZG3eD0cUOL5QSjGOfPqQnDpYHK5 lbm [file] /VwTrpVdP/sf+6QUz/jJyjWCwDgCb1zFAF2bTiE+rodríguez [file] RiZjEwMjA+GZ4aWYe+Zp4Lq9OdjkV0ybYaBZnqANr8SU5CZZNEI1VMJc== ID Date Data Source [id number] 01/01/2020 12:06:07 AM EDT [facility] Name Value Range Interpretation Code Description Data Milena rce(s) Supporting Document(s) Care Plan [facility] VBBXFw7tGoPIYpRp09/ERZceOHNyq5JsIYviRFn9AMxjGUBgZ5DrPLV7jL8sUHT5OCmIMzOdOpSgIYM7 lbm [file] BbVWAbAAKnViOnHuDzOlOhMI1WOy8ABdA9NGI9aVPzJs8WKuB5XRuDVeXxPR8UEGv= ID Date Data Source [id number] 01/01/2020 12:02:47 AM EDT [facility] Name Value Range Interpretation Code Description Data Milena rce(s) Supporting Document(s) Nursing Note [facility] QNURMk7lXrJXRnZm79/ZZTrgXEIvj4OwMNxuNYy9CIqgUNWiU0AaYJA7eN7dVEG3GEsIXrAqNlWjDRR8 lbm [file] ZfA9MUQ1eSEzIb3MNpNzMTJNLyLrNP9RXYc= ID Date Data Source [id number] 12/31/2019 07:11:32 PM EDT [facility] Name Value Range Interpretation Code Description Data Milena rce(s) Supporting Document(s) Nursing Note [facility] VOAGQp0lRgSNHcEr73/TTWlrRHJxc8VqNMqmLDp5EHmpZUZeO4LfXJI9yK5cJYL0HTnFOpLuVsGfCRO0 lbm [file] NTM+QG4xYMu+Mu0Fw7LxwqA8ldJeTOefKMC2Pe0PYGWDB0GRQs== ID Date Data Source [id number] 12/31/2019 06:56:06 PM EDT [facility] Name Value Range Interpretation Code Description Data Milena rce(s) Supporting Document(s) Care Plan [facility] GCDFYg2tXeVVUiKc39/SXPqgWJMex9SqQEqnRYn8QDtpIVUwA0GfKGE1iL9wZIO8NMpQGlNcOjKzTNN6 lbm [file] ICAgICAgICAgICAgICAgICAgICAgICAgICAgICAgICAgICAgICAgICAgICAgICAgICAgICAgICAgICAg ICAgICANCiAgICAgICAgICAgICAgICAgICAgICAgIC AgICAgICAgICAgICAgICAgICAgICAgICAgICAgICAgICAgICAgICAgICAgICAgICAgICAgICAgICAgIC AgICAgICAgICAgICAgICANCiAgICAgICAgICAgICAgICAgICAgICAgICAgICAgICAgICAgICAgICAgIC AgICAgICAgICAgICAgICAgICAgICAgICAgICAgICAg ICAgICAgICAgICAgICAgICAgICAgICAgICANCiAgICAgICAgICAgICAgICAgICAgICAgICAgICAgICAg ICAgICAgICAgICAgICAgICAgICAgICAgICAgICAgICAgICAgICAgICAgICAgICAgICAgICAgICAgICAg ICAgICAgICANCiAgICAgICAgICAgICAgICAgICAgIC AgICAgICAgICAgICAgICAgICAgICAgICAgICAgICAgICAgICAgICAgICAgICAgICAgICAgICAgICAgIC AgICAgICAgICAgICAgICAgICANCiAgICAgICAgICAgICAgICAgICAgICAgICAgICAgICAgICAgICAgIC AgICAgICAgICAgICAgICAgICAgICAgICAgICAgICAg ICAgICAgICAgICAgICAgICAgICAgICAgICAgICANCiAgICAgICAgICAgICAgICAgICAgICAgICAgICAg ICAgICAgICAgICAgICAgICAgICAgICAgICAgICAgICAgICAgICAgICAgICAgICAgICAgICAgICAgICAg ICAgICAgICAgICANCiAgICAgICAgICAgICAgICAgIC AgICAgICAgICAgICAgICAgICAgICAgICAgICAgICAgICAgICAgICAgICAgICAgICAgICAgICAgICAgIC AgICAgICAgICAgICAgICAgICAgICANCiAgICAgICAgICAgICAgICAgICAgICAgICAgICAgICAgICAgIC AgICAgICAgICAgICAgICAgICAgICAgICAgICAgICAg ICAgICAgICAgICAgICAgICAgICAgICAgICAgICAgICANCiAgICAgICAgICAgICAgICAgICAgICAgICAg ICAgICAgICAgICAgICAgICAgICAgICAgICAgICAgICAgICAgICAgICAgICAgICAgICAgICAgICAgICAg ICAgICAgICAgICAgICANCjw/bRLeH4dsrXBdeoQ2T2 sgNa7TSj8VRM2bt0LtZXPiPVbfipYaMzoGEvWmHPRjLneZDul9CAvxYB5CaCGzO8NiU3ChMBpgWF1YWJ PbXDKioDWvJPSaNVWeEzV5UPJsZVjvXB6OoBZfGSzqGBBcVGEmKwChWZOjGTKzCTFmCELfYWJHLL6CIx XcJ6GxqU99SWJXOd0+ZZaauhKsWfwNZfCtDLVou0Zm PQy6GT7IUNBmAfrek3DfBpCnXVEFLSmyLY9UUZY1USVnLKJjWo1NOAJdO356ngErWH6QUn9GRoIsNH9x it0IQgXgAQRsQwoPGqu4TCclSW3GvRKeSOiIDLWsBPBuPN3pXvdnMZ2adqK7CZGlXUAkOHFSHoWwdCCp ZU4oYo6eXGWoQNX8MmL1QEVCXS3PVYSxFKJowLGrOR OgZJWWFS7SJHlwUQE0EbpdxlCpbVLgGCufYC7WOOOzfwBoBdNxMQDYUYj+Vm9QTU1zi5YoWUzwXyTmCK 9bdl5MBYtQLiGjN6J1eNYdQ2O6NMhjUt0VRBKeIQXsYgfaVGNVHOleXW7YAL0mxtA6MQ5QnZCaOXQxHV OjdROqJZs1J08boFKjEEhjRA7ANOG+Nacho+Cu5RIXOr YXNiNCWvOjQvDKMMYuSeR3RwI7CTi0KdO7NqKK42oBmpwbBhJYjtEC7WRM4mNOKcEJDVGG5ItETnlG4v dbUkHUVdAYVKUqPgL73maHDcGEMlUPCrKMKfGu6RNQDgA7WsfaMkpUdpirQuTNGnBHRLSR5NLRggrwBm qBOyqXovRU71mTpuKF9WFs2VNaEbZX4sey4HhRXaPh 3ZSONvCI2MQJAmKMMgERTkAKB5MLAePpSoDPypJECuCBKsCPK7FCXtNBOnTD2RVlIyXSIyCsidLLTxZW XmVBVhoo0JLFDhSPOeESh0ZnBkWFWpLJWhFLcnTGToPMBbCEV8ZFXzYNUxMB9GXoYqEBWhMZQ4BBYhCV YyLNEdzc6XOGZfRPNdAio3SxQuTNPnAQSySNakPMGm LKI6DAHsONOwVBUsMI1OPxMjQWUbQXKyRLKuWDBhUTJjhx2HBLByKEInFtLvPPCsCFLtHELvDTvhDFAo WYE3LRV5XTGcNWZiRB7UUuTbKPSyEPt0NXyuYEFrGRAbko3STUEoGJXjTVExCHTvRSXaNFEdHHktKYDq JFJ7UWm2PINfROMfGX5XIrReXJCwDQm1EvUcMZRuCA Xjmm2PKHQiAMZcAEp9IZAaSUTbBQPgDThqGRBwSIWuNGT2AAOrYBSrGR8SDkTzTILtDEIjYlAcHKSgFZ Hklo6GWVCsKKLlZFSjTLCjWKTqQHNjLKwoDODyWNOjKyRoWZYmZBDaZJ6BFnPoOKKwCaG5UnooRHGtSE Aqkr6PVLLxODSrODL1UUDaLCAlPUNgYZpvPAYeHPH3 LMW1FYKvVZAaNL4ZWbCxZLNjFkG1GwEsEVMmJYBypn1TYLQeJBZgWKDmGuWaEDEvEZPqDNkrRQLqSOK9 ShD9BGYbMLCiUJ4XObTxWLPsEkN6KADbNNEzJCHxcj3NAAQfOQAmNtgvIiAuTLFbMHRrIBcgONXhOPC0 JUO0VBIwSIKiFU6LWqDgFUOiHlasSHStHYNsXVJwpz 1HKXHfEQPvToOdWdYwNQYxEICzMBfyNNJtWWU0OWkpRMKtZTLqUP2XLaMiBJWkVpzrLAAuWQUuFHNegs 8YEOTlHMSoSNB7URFtLOVhINEdDZq9tjZobTHpKZp0DU0UD2HzkvMkRuIMQm0Vg306SQDcJYPpSf5OX9 znWe9gAYJkMJQPUa4DIIh5UtYkCeCyZJZ2VNQpVjXz ATE6NJK5I1DgVHA6RZo8Kzc+AIacPJBoNRM2TiU0WKVtO6P2KhLbXZndPZWyPuNzFKEvXU2bZTSQZx1+ BDkesYHmdVcuPIERLlC2GGG1EZrrHYELOf2F ID Date Data Source [id number] 12/31/2019 03:09:23 PM EDT [facility] Name Value Range Interpretation Code Description Data Milena rce(s) Supporting Document(s) H&P [facility] RAVZCu8eRuGICsTk22/NHJjpKDFjt7GaIWtzKUs2DHgeWVPqG2BbPBC9bX3mHTP0SCkAGfBsDmWdTNQ5 lbm [file] U+WC2oIAm+Bm3Na2AclaH4ykMfUQawORf7RA5XOLYAM9XAOk== ID Date Data Source [id number] 12/31/2019 01:10:00 PM EDT [facility] Name Value Range Interpretation Code Description Data Milena rce(s) Supporting Document(s) WBC 5.19 x1000/ul 4.80-10.00 Normal (applies to non-numeric re sults) [facility] RBC 4.66 x1Mil/ul 4.70-6.10 Below low normal [facility] Hemoglobin 13.6 g/dl 14.0-18.0 Below low normal [facility] Hematocrit 41.3 % 42.0-52.0 Below low normal [facility] MCV 88.6 fL 80.0-94.0 Normal (applies to non-numeric resul ts) [facility] MCH 29.2 pg 27.0-31.0 Normal (applies to non-numeric resul ts) [facility] MCHC 32.9 g/dl 32.2-37.0 Normal (applies to non-numeric resul ts) [facility] RDW 13.1 % 11.5-14.5 Normal (applies to non-numeric resul ts) [facility] Platelet Count 309 x1000/ul 130-400 Normal (applies to non-numeric results) [facility] MPV 9.8 fL 9.4-12.4 Normal (applies to non-numeric resul ts) [facility] Neutrophils 63.0 % 40.0-74.0 Normal (applies to non-numeric resu lts) [facility] Lymphocytes 22.9 % 19.0-48.0 Normal (applies to non-numeric resu lts) [facility] Monocytes 9.8 % 3.4-9.0 Above high normal [facility] Eosinophils 3.5 % 0.0-7.0 Normal (applies to non-numeric resu lts) [facility] Basophils 0.6 % 0.0-2.0 Normal (applies to non-numeric resul ts) [facility] Immature Granulocytes 0.2 % 0.0-0.5 Normal (applies to non-nu meric results) [facility] Nucleated RBCs 0.00 % 0.00-0.20 Normal (applies to non-numeric r esults) [facility] Abs. Neutrophils 3.27 x1000/ul 1.92-8.31 Normal (applies to non-numeric results) [facility] Abs. Lymphocyte 1.19 x1000/ul 1.20-3.70 Below low normal [facility] Abs. Monocytes 0.51 x1000/ul 0.14-0.97 Normal (applies to non-nu meric results) [facility] Abs. Eosinophils 0.18 x1000/ul 0.00-0.76 Normal (applie s to non-numeric results) [facility] Abs. Basophils 0.03 x1000/ul 0.00-0.22 Normal (applies to non-n umeric results) [facility] Abs. Immature Gran. 0.01 x1000/ul 0.00-0.02 Normal (appl ies to non-numeric results) [facility] Abs. Nucleated RBCs 0.00 x1000/ul 0.00-0.02 Normal (appl ies to non-numeric results) [facility] The above 24 analytes were performed by [facility] [id number] [place] [address],[id number],[place] [address] ID Date Data Source [id number] 12/31/2019 12:00:49 PM EDT [facility] Name Value Range Interpretation Code Description Data Milena rce(s) Supporting Document(s) Progress Notes [facility] KJPQLd8nTrSAZmAs42/CRHqmVGCjy9EmACgfHUj5LBozMOCtH0MiZCN2eW6lZFV0MAnADzCvLvSmROZ9 lbm [file] 4qSXPXDc9+RWjieUKiwQkkPSTLDcHpCSW0PLpvYOTLUa6F ID Date Data Source [id number] 12/31/2019 09:10:02 AM EDT [facility] Name Value Range Interpretation Code Description Data Milena rce(s) Supporting Document(s) Consults [facility] IAMALb9lHyLEWaYs06/KQUdkRNNnu4NsGKxwRWk5JTotMZEzS0LvFVM3sW1uQJH2CSlQDeWuKdBoDGV1 lbm [file] 7Ha0YdauM8clAgLMkdWJB7Zz6PIXCZR4COQz== ID Date Data Source [id number] 12/31/2019 08:47:41 AM EDT [facility] Patient: RIVERA LEONE : 1970 [facility]+ VIEWS LEFT Provider: LUARIE TYLERINICAL HISTORY: Pain edema, erythema, posterior right wrist pain along carpalbones for a couple of days, no known traumaTECHNIQUE: 4 views were obtained. AP, lateral, and both oblique views.COMPARISON: There are no prior studies available for comparison.FINDINGS: No fracture or dislocation. No significant arthritic changes. Noobviousl soft tissue abnormality.IMPRESSION: No significant abnormality.Electronically Signed by Jesse Madera MD 12/31/2019 8:47 AM Name Value Range Interpretation Code Description Data Milena rce(s) Supporting Document(s) ID Date Data Source [id number] 12/31/2019 05:06:00 AM EDT [facility] Name Value Range Interpretation Code Description Data Milena rce(s) Supporting Document(s) Nursing Note [facility] XFUNJo3pKlMHHtTo64/PZHxfAHBvw1JdAMpvTKc6JXwdHEOvS7KbPHQ3pV8xJGT5KEzJMtIkOsKeLDV5 lbm BmLubVRaMrFQEtEpfVTlEeHDnsNtfdjTZgIX3MoYS3QODgV90tGCUzITOhG3UqFEf3PX3+VVnxAVZ3yx JgiZ1SADZVAL6X51THxc+0/7MAW6Y3gfUpTEmcPE0PNKBU9st5WRc6jUSVeGlG/58RXNYAEssuDrSPF5 11Pn+7d684NYE2+et6oSjpqL+oMaWr0RHkSt+CWk2K wAw2WNKZWtOuyw3D+jx8ud42YXoeuE40fIhJFK9CHqhuGKZizBkDkXHgH/qEY2Q9RpD0CTqTmW/EwKYD kfZSN2uxFt3uVA1PQwZTx0DyDN1PIlAzp5kGOdauuQFJhfCzkWpj9MaCNyIhl5Z21rFCaPJU5YtgGlHZ pomUEOxDJsWjg02iwOgkRUYdOex6HeK18bSu6mejvW S9qTIkrQPx5WN6YKPUwtREwblOCExxlZzwXnUuR+wXcEx71XX7/avgSYPCqvsoNGJH+cwe4AT+LMTD5G 4W4PIVZAofuHIz+TyjEY5yaBRNJ0tfiuElFOtTXFLHUnqhd/vQEWgeDY+8ctEXj2wWpxyk0YvTIzqZ7z h6CAvfIyvE626pS6CHLRSldOJnmgUh3T9eRE6k7U72 2+HGSRNhnM6vXCh/vcZ6Cj63ciFr/hBJFW8PBsJr+oM2Cb8qeABYLaHG8GRyjZtR5EMceH6yFvaU6NeT UpQgqui5xS+mbmD1fmm5OiF+C3FPWJL5zW7d/A/eeHiP8Zvw8jxoml79/99TEDdqIaTnOLsDcgcnLFLB aLnwa0SiZDuM3SZyZgrqECDf8vOTKrTj8HSGCzSdDS 5K13wgXDcyGzHizxN1qlYe2QnQFuZJCx/5/VnDHgYea9ImJpQODlwxhlDyP7hE7FLU474QzoWh3u6ZSF fzxobUel136p9fg9WZCx/iX1MRe5JEys3EXv8Cv9CoJx12ANIkpfJPOyAFFU76wl9R4BUdKFfrDQlfYe Keaton/eKllYPuilAeBdIzqaScZX4RhCrzg1maHqRHTeH [file] MDQxMSAwMDAwMCBuDQowMDAwMDIwNDgyIDAwMDAwIG 2BXzTfSIKzUvC1CmbzOQLdUOFtdj8BkVOibWpyop0XJWyRKn8FpKliFYC7TPfmHp7fkZFxTFUnETIUPa 2WmiXlUDVyNWAZPGjyZSGjWKFtGUD6HBgyCRJjFJidOOTjBUF1QwJcIKi6PsE4ZEDzJhP0M5KrZAKjJF P1RYRqDrG3ZUI4UyupRlN4PczjVNH7LiB+IF0gDQ o+Zv8Nd9MvceL6xiWnREfpWWj5Zd2SXVZIX5RMGz== ID Date Data Source [id number] 12/30/2019 11:19:14 PM EDT [facility] Name Value Range Interpretation Code Description Data Milena rce(s) Supporting Document(s) Nursing Note [facility] WEZPAr2tFhWLUfCo54/GIGjrMDEbi5TgIJdiPAk1THdaDYKbN7UxGYN9oY9kDTM2HWbVBkNoPqNbJPC1 lbm [file] DsFZNiLPQcTOW2RQV+XV3yZGo+Ea4Il1WvzjB3wkKdTAzfDoNuGd2MIDLTL0OGPq== ID Date Data Source [id number] 12/30/2019 10:54:18 PM EDT [facility] Name Value Range Interpretation Code Description Data Milena rce(s) Supporting Document(s) Nursing Note [facility] KRTUJd9nEuAJSmSb97/JLGtvRKGca4ZaUNjmMTw2ZDnmZWBwF7PrINK2nE8kYBS8IKaQNyKpCrIzSHZ5 lbm [file] DA SILVA/3EOWw99Bh1xTb3kMeUI9vOHjpK07qL+0q2CeCaQ7BgLRch/TP9X0mO7gGUW3VWPprdVbmpgN8dx+M i5DWL400m8FQzWVl9ul1ZGfRMb/Fk+lLccF3peM0ZV41KQCTOXyycG/BvLlzZs+aOWN6+bTzCidNLJgw McJoTZdpguJK4S+vb5/eZ/KM6IosrEx3lvugImrvfP rSIdA+0w5e8tMemI5ndHDh96i3y0oNJ0N7EzNC7CKse0wiedYUXNtMZ+jVfMpW1TZMrUNm5O5tEGRVSK BxyI+a8QZ2Zl0pjeB/uZAUxdvNqWFuE3kIKLR6F8ngh01+Pilar/8Md1yG5mMl5tkKtqbgRNL/vGrZfb4w [file] XU8QNKURA8LCAg== ID Date Data Source [id number] 12/30/2019 10:41:17 PM EDT [facility] Name Value Range Interpretation Code Description Data Milena rce(s) Supporting Document(s) Care Plan [facility] GSUBHs5jUtIUYoQy45/MUNpcJXHch3YaCHcdQEi3JYxtKREmE4XwFIV7rP0iFWR3IOlOZyUrGtOrIZF8 lbm [file] mgEPS9Hd9WBTFLY1NHPy== ID Date Data Source [id number] 12/30/2019 09:48:40 PM EDT [facility] Name Value Range Interpretation Code Description Data Milena rce(s) Supporting Document(s) ED Provider Notes [facility] EHGFTg1pTtYXKlRm49/SMFjyYYLft5MzZEokECa0MCtbZRQpX1KxISU2tG2iXTK8QLcKRhQoQlZrVUV3 lbm [file] bNOkYw0XHcD3XXGKUtPyZI0SNGw= ID Date Data Source [id number] 12/30/2019 09:04:53 PM EDT [facility] Name Value Range Interpretation Code Description Data Milena rce(s) Supporting Document(s) ED Triage Notes [facility] NYOFQn1yXxRBJbIx31/WRFnhVPHqx5GvYYlkNOs8OWhlMBAaX3DoAWI9oO4zISL5NLeHUeIgErFvFFG5 lbm [file] ThIcSGfkVYG0DkDjOT1cGQDIXy1+OInsqTDjdIkrPXYLMgf8NeSSQrMpQG0QDEz= ID Date Data Source [id number] 11/19/2019 07:09:00 PM EDT [facility] Name Value Range Interpretation Code Description Data Milena rce(s) Supporting Document(s) Troponin I 0.000-0.056 Normal (applies to non-numeric resu lts) [facility] ID Date Data Source [id number] 11/19/2019 07:09:00 PM [facility] Name Value Range Interpretation Code Description Data Milena rce(s) Supporting Document(s) Sodium 138 mmol/L 136-145 Normal (applies to non-numeric resul ts) [facility] Potassium 3.5-5.1 Normal (applies to non-numeric resul ts) [facility] Chloride 99 mmol/L 98-107 Normal (applies to non-numeric resul ts) [facility] Carbon Dioxide CO2 21-32 Normal (applies to non-numer ic results) [facility] Anion Gap 5.0-16.0 Normal (applies to non-numeric resul ts) [facility] BUN 11 mg/dL 7-18 Normal (applies to non-numeric results) [facility] Creatinine,Serum 0.8-1.5 Normal (applies to non-numeric results) [facility] GFR >60 Normal (applies to non-numeric results) [facility] Glucose Level 95 mg/dL 60-99 Normal (applies to non-numeric re sults) [facility] Reference range is only applicable when patient is fasting Note the following drug interference: Sulfasalazine Sulfapyridine Can see falsely depressed Can see falsely elevated result with up to 17% results with up to 11% decrease in measurement increase in measurement Recommend patients be collected for this test prior to administration of either drug. Calcium 8.5-10.1 Normal (applies to non-numeric resul ts) [facility] ID Date Data Source [id number] 11/21/2019 12:14:00 PM EDT [facility] Imaging Services Department Imaging Report [address], [place] [address] %(RAD)RES..[email or web address].filter("line") Name: RIVERA LEONE : 1970 Age/Sex: 49M Ordering Provider: Remy Humphrey MD Med Rec #: [id number] Reg Status: ADM IN Room #: 129-1 Date of Service: 11/19/19 Report Number: [id number] cc:Remy Humphrey MD; PCP None Send Report To: [id number] XRP/XR Chest 2 View [Pa & Lat] Reason for exam: chest pain FINDINGS: The cardiac and mediastinal silhouettes appear normal and the lungs are clear. The bones and soft tissues are normal. The upper abdomen is unremarkable. IMPRESSION: No acute disease identifiable. Time portable performed: Fluoroscopy time in seconds: Number of Exposures: Contrast Agent in ml: Method of Administration: REPORT SIGNATURE ON FILE Reported By: Jovan Orozco MD <Electronically signed by Keyanna Orozco MD> 11/21/19 1809 Dictation Date/Time: 11/21/19 1045 Transcribed Date/Time: 11/21/19 1214 [employer] Teacher: ULISSES Name Value Range Interpretation Code Description Data Milena rce(s) Supporting Document(s) ID Date Data Source [id number] 11/19/2019 07:09:00 AM EDT [facility] Name Value Range Interpretation Code Description Data Milena rce(s) Supporting Document(s) White Blood Count 3.5-10.5 Normal (applies to non-numeri c results) [facility] Red Blood Count 4.30-5.70 Normal (applies to non-numeric results) [facility] Hemoglobin 13.5-17.5 Below low normal [facility] Hematocrit 38.8-50.0 Below low normal [facility] Mean Corpuscular Volume 81.2-95.1 Normal (applies to non- numeric results) [facility] Mean Corpuscular Hgb 25.6-32.2 Normal (applies to non-num giles results) [facility] Mean Corpuscular Hgb Conc 32.0-36.0 Normal (applies to no n-numeric results) [facility] Red Cell Distribution Width 11.8-15.6 Normal (appli es to non-numeric results) [facility] Platelet Count 385 x10 3/uL 150-450 Normal (applies to non-numeric results) [facility] Mean Platelet Volume 9.4-12.4 Normal (applies to non-num giles results) [facility] Neutrophils% (Auto) 31.0-71.0 Normal (applies to non-nume courtney results) [facility] Lymphocytes% (Auto) 20.0-55.[address] [facility] Monocytes% (Auto) 4.0-12.0 Normal (applies to non-numeri c results) [facility] Eosinophils% (Auto) 1.0-8.0 Normal (applies to non-nume courtney results) [facility] Basophils% (Auto) 0.0-2.0 Normal (applies to non-numeri c results) [facility] Immature Granulocytes% (Auto) 0.0-2.0 Normal (crescencio lies to non-numeric results) [facility] Neutrophils# (Auto) 1.50-6.20 Normal (applies to non-nume courtney results) [facility] Lymphocytes# (Auto) 1.20-4.00 Normal (applies to non-nume courtney results) [facility] Monocytes# (Auto) 0.00-0.90 Normal (applies to non-numeri c results) [facility] Eosinophils# (Auto) 0.00-0.50 Normal (applies to non-nume courtney results) [facility] Basophils# (Auto) 0.00-0.20 Normal (applies to non-numeri c results) [facility] Immature Granulocytes# (Auto) 0.00-7.00 No rmal (applies to non-numeric results) [facility] ID Date Data Source [id number] 11/20/2019 07:32:00 PM EDT [facility] Name Value Range Interpretation Code Description Data Milena rce(s) Supporting Document(s) HIV Screen result Nonreactive Normal (applies to non-numer ic results) [facility] Test Performed By: [facility] [address] [place] [address] Director: Gee Hightower MD ID Date Data Source [id number] 11/20/2019 07:16:00 PM EDT [facility] Name Value Range Interpretation Code Description Data Milena rce(s) Supporting Document(s) HIV 1/2 Ab p24 Ag Screen Nonreactive Normal (applies to non-numeric results) [facility] Test Performed By: [facility] [address] [place] [address] Director: Gee Hightower MD ID Date Data Source [id number] 11/19/2019 07:30:00 AM EDT [facility] Name Value Range Interpretation Code Description Data Milena rce(s) Supporting Document(s) Sodium 140 mmol/L 136-145 Normal (applies to non-numeric resul ts) [facility] Potassium 3.5-5.1 Normal (applies to non-numeric resul ts) [facility] Chloride 101 mmol/L 98-107 Normal (applies to non-numeric resul ts) [facility] Carbon Dioxide CO2 21-[address] [facility] Anion Gap 5.0-16.0 Normal (applies to non-numeric resul ts) [facility] BUN 12 mg/dL 7-18 Normal (applies to non-numeric results) [facility] Creatinine,Serum 0.8-1.5 Normal (applies to non-numeric results) [facility] GFR >60 Normal (applies to non-numeric results) [facility] Glucose Level 95 mg/dL 60-99 Normal (applies to non-numeric re sults) [facility] Reference range is only applicable when patient is fasting Note the following drug interference: Sulfasalazine Sulfapyridine Can see falsely depressed Can see falsely elevated result with up to 17% results with up to 11% decrease in measurement increase in measurement Recommend patients be collected for this test prior to administration of either drug. Calcium 8.5-10.1 Normal (applies to non-numeric resul ts) [facility] Bilirubin,Total 0.1-1.9 Normal (applies to non-numeric results) [facility] SGOT(AST) 244 U/L 15-37 Above high normal [facility] Note the following drug interference: Sulfasalazine Sulfapyridine Can see falsely depressed Can see falsely elevated result with up to 10% results with up to 10% decrease in measurement increase in measurement Recommend patients be collected for this test prior to administration of either drug. SGPT(ALT) 428 U/L 12-78 Above high normal [facility] Note the following drug interference: Sulfasalazine Sulfapyridine Can see falsely depressed Can see falsely elevated result with up to 29% results with up to 10% decrease in measurement increase in measurement Recommend patients be collected for this test prior to administration of either drug. Alkaline Phosphatase 102 U/L 38-126 Normal (applies to non-num giles results) [facility] can increase Alkaline Phosp le vels up to 2 times the normal adult value. Normal values for children and adolescents are 2 to 3 times the normal adult value. Total Protein 6.0-8.2 Normal (applies to non-numeric re sults) [facility] Albumin Level 3.4-5.0 Below low normal [facility] ID Date Data Source [id number] 11/19/2019 07:30:00 AM EDT [facility] Name Value Range Interpretation Code Description Data Milena rce(s) Supporting Document(s) Magnesium 1.8-2.4 Normal (applies to non-numeric resul ts) [facility] ID Date Data Source [id number] 11/19/2019 07:30:00 AM EDT [facility] Name Value Range Interpretation Code Description Data Milena rce(s) Supporting Document(s) Phosphorus 2.5-4.9 Normal (applies to non-numeric resul ts) [facility] ID Date Data Source [id number] 11/16/2019 03:02:00 PM EDT [facility] Name Value Range Interpretation Code Description Data Milena rce(s) Supporting Document(s) Bilirubin,Direct 0.05-0.20 Normal (applies to non-numeric results) [facility] ID Date Data Source [id number] 11/16/2019 03:02:00 PM [facility] Name Value Range Interpretation Code Description Data Milena rce(s) Supporting Document(s) Phosphorus 2.5-4.9 Normal (applies to non-numeric resul ts) [facility] ID Date Data Source [id number] 11/16/2019 03:02:00 PM T [facility] Name Value Range Interpretation Code Description Data Milena rce(s) Supporting Document(s) Sodium 137 mmol/L 136-145 Normal (applies to non-numeric resul ts) [facility] Potassium 3.5-5.1 Normal (applies to non-numeric resul ts) [facility] Chloride 99 mmol/L 98-107 Normal (applies to non-numeric resul ts) [facility] Carbon Dioxide CO2 21-32 Normal (applies to non-numer ic results) [facility] Anion Gap 5.0-16.0 Normal (applies to non-numeric resul ts) [facility] BUN 17 mg/dL 7-18 Normal (applies to non-numeric results) [facility] Creatinine,Serum 0.8-1.5 Normal (applies to non-numeric results) [facility] GFR >60 Normal (applies to non-numeric results) [facility] Glucose Level 137 mg/dL 60-99 Above high normal [facility] Reference range is only applicable when patient is fasting Note the following drug interference: Sulfasalazine Sulfapyridine Can see falsely depressed Can see falsely elevated result with up to 17% results with up to 11% decrease in measurement increase in measurement Recommend patients be collected for this test prior to administration of either drug. Calcium 8.5-10.1 Below low normal [facility] Bilirubin,Total 0.1-1.9 Normal (applies to non-numeric results) [facility] SGOT(AST) 245 U/L 15-37 Above high normal [facility] Note the following drug interference: Sulfasalazine Sulfapyridine Can see falsely depressed Can see falsely elevated result with up to 10% results with up to 10% decrease in measurement increase in measurement Recommend patients be collected for this test prior to administration of either drug. SGPT(ALT) 366 U/L 12-78 Above high normal [facility] Note the following drug interference: Sulfasalazine Sulfapyridine Can see falsely depressed Can see falsely elevated result with up to 29% results with up to 10% decrease in measurement increase in measurement Recommend patients be collected for this test prior to administration of either drug. Alkaline Phosphatase 91 U/L 38-126 Normal (applies to non-num giles results) [facility] can increase Alkaline Phosp le vels up to 2 times the normal adult value. Normal values for children and adolescents are 2 to 3 times the normal adult value. Total Protein 6.0-8.2 Normal (applies to non-numeric re sults) [facility] Albumin Level 3.4-5.0 Normal (applies to non-numeric re sults) [facility] ID Date Data Source [id number] 11/16/2019 03:02:00 PM EDT [facility] Name Value Range Interpretation Code Description Data Milena rce(s) Supporting Document(s) Magnesium 1.8-2.4 Normal (applies to non-numeric resul ts) [facility] ID Date Data Source [id number] 11/16/2019 03:02:00 PM EDT [facility] Name Value Range Interpretation Code Description Data Milena rce(s) Supporting Document(s) Thyroid Stimulate Hormone TSH 0.358-3.74 No rmal (applies to non-numeric results) [facility] ID Date Data Source [id number] 11/16/2019 05:35:00 PM EDT [facility] Name Value Range Interpretation Code Description Data Milena rce(s) Supporting Document(s) CPK result 63 U/L 39-308 Normal (applies to non-numeric resul ts) [facility] Test Performed By: [facility] [address] [place] [address] Director: Gee Hightower MD ID Date Data Source [id number] 11/16/2019 05:35:00 PM EDT [facility] Name Value Range Interpretation Code Description Data Milena rce(s) Supporting Document(s) Hepatitis C Virus Ab result Nonreactive Very abnormal (applies to non-numeric units [facility] Jewell Aguilar RN read back information 1734 LAB.MCNRO Test Performed By: [facility] [address] [place] [address] Director: Gee Hightower MD Results called 11/16/19 1720, YURIDIA HERMOSILLO read back information to Elton Davis THIS IS A STATE REPORTABLE COMMUNICABLE DISEASE. Note: This patient's sample tests reactive with a high Index >/= 11.00. Samples with high indexes have been shown to repeat positive using a different methodology 95% of the time or greater but <5 of every 100 samples might be false positives. Additional testing for verification of the result can be requested by the physician if necessary. ([facility] MMWR No RR- 3. 2003). ID Date Data Source [id number] 11/16/2019 05:35:00 PM T [facility] Name Value Range Interpretation Code Description Data Milena rce(s) Supporting Document(s) Hep Bs Ag result T-Test Nonreactive Normal (applies to non -numeric results) [facility] Test Performed By: [facility] [address] [place] [address] Director: Gee Hightower MD ID Date Data Source [id number] 11/16/2019 05:35:00 PM EDT [facility] Name Value Range Interpretation Code Description Data Milena rce(s) Supporting Document(s) Syphilis Serology result Nonreactive Normal (applies to non-numeric results) [facility] Test Performed By: [facility] [address] [place] [address] Director: Gee Hightower MD ID Date Data Source [id number] 11/16/2019 05:21:00 PM EDT [facility] Test Performed By: [facility] [address] [place] [address] Director: Gee Hightower MD Test Performed By: [facility] [address] [place] [address] Director: Gee Hightower MD Name Value Range Interpretation Code Description Data Milena rce(s) Supporting Document(s) Hep C Ab-T Test Nonreactive [facility] Test Performed By: [place] [address] Director: Gee Hightower MD Results called 11/16/19 1720, YURIDIA HERMOSILLO read back information to Elton Davis THIS IS A STATE REPORTABLE COMMUNICABLE DISEASE. Note: This patient's sample tests reactive with a high Index >/= 11.00. Samples with high indexes have been shown to repeat positive using a different methodology 95% of the time or greater but <5 of every 100 samples might be false positives. Additional testing for verification of the result can be requested by the physician if necessary. ([facility] MMWR No RR-3. 2003). ID Date Data Source [id number] 11/16/2019 05:21:00 PM EDT [facility] Test Performed By: [facility] [address] [place] [address] Director: Gee Hightower MD Test Performed By: [place] [address] Director: Gee Hightower MD Name Value Range Interpretation Code Description Data Milena rce(s) Supporting Document(s) ID Date Data Source [id number] 11/16/2019 05:22:00 PM EDT [facility] Test Performed By: [facility] [address] [place] [address] Director: Gee Hightower MD Test Performed By: [facility] [address] [place] [address] Director: Gee Hightower MD Name Value Range Interpretation Code Description Data Milena rce(s) Supporting Document(s) ID Date Data Source [id number] 11/16/2019 04:16:00 PM EDT [facility] Name Value Range Interpretation Code Description Data Milena rce(s) Supporting Document(s) CPK 63 U/L 39-308 Normal (applies to non-numeric resul ts) [facility] Test Performed By: [facility] [address] [place] [address] Director: Gee Hightower MD ID Date Data Source [id number] 11/16/2019 04:09:00 PM EDT [facility] Name Value Range Interpretation Code Description Data [facility] rce(s) Supporting Document(s) White Blood Count 3.5-10.5 Normal (applies to non-numeri c results) [facility] Red Blood Count 4.30-5.70 Normal (applies to non-numeric results) [facility] Hemoglobin 13.5-17.5 Below low normal [facility]ital Hematocrit 38.8-50.0 Normal (applies to non-numeric resul ts) [facility] Mean Corpuscular Volume 81.2-95.1 Normal (applies to non- numeric results) [facility] Mean Corpuscular Hgb 25.6-32.2 Normal (applies to non-num giles results) [facility] Mean Corpuscular Hgb Conc 32.0-36.0 Normal (applies to no n-numeric results) [facility] Red Cell Distribution Width 11.8-15.6 Normal (appli es to non-numeric results) [facility] Platelet Count 369 x10 3/uL 150-450 Normal (applies to non-numeric results) [facility] Mean Platelet Volume 9.4-12.4 Normal (applies to non-num giles results) [facility] Neutrophils% (Auto) 31.0-71.0 Normal (applies to non-nume courtney results) [facility] Lymphocytes% (Auto) 20.0-55.0 Normal (applies to non-nume courtney results) [facility] Monocytes% (Auto) 4.0-12.0 Normal (applies to non-numeri c results) [facility] Eosinophils% (Auto) 1.0-8.0 Normal (applies to non-nume courtney results) [facility] Basophils% (Auto) 0.0-2.0 Normal (applies to non-numeri c results) [facility] Immature Granulocytes% (Auto) 0.0-2.0 Normal (crescencio lies to non-numeric results) [facility] Neutrophils# (Auto) 1.50-6.20 Normal (applies to non-nume courtney results) [facility] Lymphocytes# (Auto) 1.20-4.00 Normal (applies to non-nume courtney results) [facility] Monocytes# (Auto) 0.00-0.90 Normal (applies to non-numeri c results) [facility] Eosinophils# (Auto) 0.00-0.50 Normal (applies to non-nume courtney results) [facility] Basophils# (Auto) 0.00-0.20 Normal (applies to non-numeri c results) [facility] Immature Granulocytes# (Auto) 0.00-7.00 No rmal (applies to non-numeric results) [facility] ID Date Data Source [id number] 11/16/2019 02:45:00 PM EDT [facility] Name Value Range Interpretation Code Description Data Milena rce(s) Supporting Document(s) Ethanol Less than 10.0 Normal (applies to non-numeric r esults) [facility] ID Date Data Source [id number] 11/19/2019 02:46:00 PM EDT [facility] Name Value Range Interpretation Code Description Data Milena rce(s) Supporting Document(s) Chlamydia,Urine Negative Normal (applies to non-numeric results) [facility] Test Performed By: [facility] [address] [place] [address] Director: Gee Hightower MD . GC Urine Negative Normal (applies to non-numeric resul ts) [facility] Test Performed By: [facility] [address] [place] [address] Director: Gee Hightower MD . Methodology: Second generation nucleic acid amplification. ID Date Data Source [id number] 11/19/2019 01:38:00 PM EDT [facility] Value Range Interpretation Code Description Data Milena e(s) Supporting Document(s) Hepatitis A Ab,IgG result Normal (applies to no n-numeric results) [facility] Result indicates no past exposure or imm unity to hepatitis A infection. REFERENCE VALUE Unvaccinated: Negative Vaccinated: Positive Test Performed by: [facility] [place] [address] Loss Prevention Consultant: Joseph Morales M.D. Ph.D.; CLIA# [id number] ID Date Data Source [id number] 11/19/2019 12:40:00 PM EDT [facility] Value Range Interpretation Code Description Data Milena [facility](s) Supporting Document(s) Hepatitis A Ab,IgG result Normal (applies to no n-numeric results) [facility] Result indicates no past exposure or imm unity to hepatitis A infection. REFERENCE VALUE Unvaccinated: Negative Vaccinated: Positive Test Performed by: [place] [address] Loss Prevention Consultant: Joseph Morales M.D. Ph.D.; CLIA# [id number] ID Date Data Source [id number] 11/16/2019 02:42:00 PM EDT [facility] Name Value Range Interpretation Code Description Data Milena rce(s) Supporting Document(s) UDS Phencyclidine Screen Negative Normal (applies to non -numeric results) [facility] UDS Benzodiazepines Screen Negative Normal (applies to n on-numeric results) [facility] UDS Cocaine Screen Negative Normal (applies to non-numer ic results) [facility] UDS Ampetamine Screen Negative Normal (applies to non-nu meric results) [facility] UDS Cannabinoids Screen Negative [facility] UDS Opiates Screen Negative Normal (applies to non-numer ic results) [facility] UDS Barbiturates Screen Negative Normal (applies to non- numeric results) [facility] UDS Tricyclic Screen Negative Normal (applies to non-num giles results) [facility] Therapeutic Drug Ranges for Emergency Threshold Levels (ng/mL) PCP 25 Benzodiazepine 300 Cocaine 300 Amphetamines 1000 Cannabinoids 50 Opiates 300 Barbiturates 300 Tricyclic(TCA) 1000 Emergency toxicology analytes exceeding the therapeutic threshold levels are positive. Positive findings are unconfirmed. Positive drug levels may be confirmed at the request of the ordering provider. Results are to be used for medical treatment purposes only. ID Date Data Source [id number] 11/16/2019 02:22:00 PM EDT [facility] Collected By: Patient-Inpatient Initial s: CF Time Collected: 1355 Name Value Range Interpretation Code Description Data [facility] rce(s) Supporting Document(s) Color,Urine Colorl-Dk Y Normal (applies to non-numeric res ults) [facility] Clarity,Urine Clear Normal (applies to non-numeric re sults) [facility] Specific [place],Urine 1.005-1.030 Normal (applies to non- numeric results) [facility] pH,Urine 5.0-8.0 Normal (applies to non-numeric resul ts) [facility] Protein,Urine Negative Normal (applies to non-numeric re sults) [facility] Glucose,Urine Negative Normal (applies to non-numeric re sults) [facility] Ketones,Urine Negative Normal (applies to non-numeric re sults) [facility] Blood,Urine Negative Normal (applies to non-numeric resu lts) [facility] Bilirubin,Urine Negative Normal (applies to non-numeric results) [facility] Urobilinogen,Urine 0.2-1.0 Normal (applies to non-numer ic results) [facility] Leukocyte Esterase,Urine Negative Normal (applies to non -numeric results) [facility] Nitrite,Urine Negative Normal (applies to non-numeric re sults) [facility] ID Date Data Source [id number] 11/19/2019 03:26:00 PM EDT [facility] Name Value Range Interpretation Code Description Data Milena rce(s) Supporting Document(s) Chlamydia,Urine result Negative Normal (applies to non-n umeric results) [facility] Test Performed By: [facility] [address] [place] [address] Director: Gee Hightower MD . GC Urine result Negative Normal (applies to non-numeric results) [facility] Test Performed By: [facility] [address] [place] [address] Director: Gee Hightower MD . Methodology: Second generation nucleic acid amplification. ID Date Data Source [id number] 11/15/2019 04:00:00 AM EDT [facility] [employer]) Name Value Range Interpretation Code Description Data Milena rce(s) Supporting Document(s) Urea nitrogen [Mass/volume] in Serum or Plasma 17.0 mg/dL [facility] ([employer]) Glucose [Mass/volume] in Serum or Plasma 81.0 mg/dL [facility] ([employer]) Creatinine [Mass/volume] in Serum or Plasma 0.89 mg/dL [facility] ([employer]) Glomerular filtration rate/1.73 sq M.pre dicted [Volume Rate/Area] in Serum, Plasma or Blood by Creatinine-based formula (MDRD) 100.0 mL/min/1.73m2 [facility] ([employer]) Glomerular filtration rate/1.73 sq M pre dicted among blacks [Volume Rate/Area] in Serum or Plasma by Creatinine-based formula (MDRD) 116.0 mL/min/1.73m2 [facility] ([employer]) Urea nitrogen/Creatinine [Mass Ratio] in Serum or Plasma NOT APPLICAB LE [facility] ([facility]) Potassium [Moles/volume] in Serum or Plasma 4.5 mmol/L [facility] ([facility]) Chloride [Moles/volume] in Serum or Plasma 103.0 mmol/L [facility] ([facility]) Sodium [Moles/volume] in Serum or Plasma 139.0 mmol/L [facility] ([facility]) Calcium [Mass/volume] in Serum or Plasma 8.9 mg/dL [facility] ([facility]) Carbon dioxide, total [Moles/volume] in Serum or Plasma 28.0 mmol/L [facility] ([facility]) Protein [Mass/volume] in Serum or Plasma 6.7 g/dL [facility] ([facility]) Bilirubin.total [Mass/volume] in Serum or Plasma 0.6 mg/dL [facility] ([facility]) Albumin/Globulin [Mass Ratio] in Serum or Plasma 1.5 (calc) [facility] ([facility]) Albumin [Mass/volume] in Serum or Plasma 4.0 g/dL [facility] ([facility]) Globulin [Mass/volume] in Serum by calculation 2.7 g/dL (calc) [facility] ([facility]) Alanine aminotransferase [Enzymatic activity/volume] i n Serum or Plasma 238.0 U/L [facility] ([facility]) Aspartate aminotransferase [Enzymatic activity/volume] in Serum or Plasma 190.0 U/L [facility] ([facility]) Alkaline phosphatase [Enzymatic activity/volume] in Serum or Kaylynn sma 81.0 U/L [facility] ([facility]) Specific gravity of Urine by Test strip 1.003 [facility] ([facility]) Appearance of Urine TURBID [facility] ( [facility]) Color of Urine YELLOW [facility] ([facility]) pH of Urine by Test strip 6.0 NETS M[facility] ([facility]) Bilirubin.total [Presence] in Urine by Test strip NEGATIVE [facility] ([facility]) Ketones [Presence] in Urine by Test strip NEGATIVE [facility] ([facility]) Glucose [Presence] in Urine by Test strip NEGATIVE [facility] ([facility]) Hemoglobin [Presence] in Urine by Test strip NEGATIVE [facility] ([facility]) Protein [Presence] in Urine by Test strip NEGATIVE [facility] ([facility]) Nitrite [Presence] in Urine by Test strip NEGATIVE [facility] ([facility]) Leukocyte esterase [Presence] in Urine by Test strip NEGATIVE [facility] ([facility]) Leukocytes [#/area] in Urine sediment by Microscopy high power field 0-5 [facility] ([facility]) Erythrocytes [#/area] in Urine sediment by Microscopy high power fi eld 0-2 [facility] ([facility]) Epithelial cells.squamous [#/area] in Ur ine sediment by Microscopy high power field 0-5 [facility] ([facility]) Transitional cells [#/area] in Urine sediment by Micro scopy high power field DNR [facility] ([facility]) Epithelial cells.renal [#/area] in Urine sediment by Microscopy high power field DNR [facility] ([facility]) Calcium oxalate crystals [#/area] in Uri ne sediment by Microscopy high power field FEW [facility] ([facility]) Bacteria [#/area] in Urine sediment by Microscopy high power fie ld NONE SEEN [facility] ([facility]) Triple phosphate crystals [#/area] in Ur ine sediment by Microscopy high power field DNR [facility] ([facility]) Amorphous sediment [Presence] in Urine sediment by Light microscopy M ANY [facility] ([facility]) Urate crystals [#/area] in Urine sediment by Microscopy high pow er field DNR [facility] ([facility]) Granular casts [#/area] in Urine sediment by Microscopy low power f ield DNR [facility] ([facility]) Casts [#/area] in Urine sediment by Microscopy low power field DNR [facility] ([facility]) Crystals [#/area] in Urine sediment by Microscopy high power field DN R [facility] ([facility]) Hyaline casts [#/area] in Urine sediment by Microscopy low power field NONE SEEN [facility] ([facility]) Leukocytes [#/volume] in Blood by Automated count 5.4 Thousand/uL [facility] ([facility]) Service comment DNR [facility] ([facility]) Yeast [#/area] in Urine sediment by Microscopy high power field DNR [facility] ([facility]) Hemoglobin [Mass/volume] in Blood 13.8 g/dL [facility] ([facility]) Hematocrit [Volume Fraction] of Blood by Automated count 41.6 % [facility] ([facility]) Erythrocytes [#/volume] in Blood by Automated count 4.75 Million/uL [facility] ([facility]) Erythrocyte mean corpuscular volume [Entitic volume] by Auto mated count 87.6 fL [facility] ([facility]) Erythrocyte mean corpuscular hemoglobin [Entitic mass] by Automated count 29.1 pg [facility] ([facility]) Erythrocyte distribution width [Ratio] by Automated count 12.9 % [facility] ([facility]) Erythrocyte mean corpuscular hemoglobin concentration [Mass/volume] by Automated count 33.2 g/dL [facility] ([facility]) Neutrophils [#/volume] in Blood by Automated count 3067.0 cells/uL [facility] ([facility]) Platelet mean volume [Entitic volume] in Blood by Raquelker 11.2 fL [facility] ([facility]) Band form neutrophils [#/volume] in Blood DNR [facility] ([facility]) Platelets [#/volume] in Blood by Automated count 363.0 Thousand/uL [facility] ([facility]) Myelocytes [#/volume] in Blood DNR [facility] ([facility]) Metamyelocytes [#/volume] in Blood DNR [facility] ([facility]) Promyelocytes [#/volume] in Blood DNR [facility] ([facility]) Monocytes [#/volume] in Blood by Automated count 734.0 cells/uL [facility] ([facility]) Eosinophils [#/volume] in Blood by Automated count 103.0 cells/uL [facility] ([facility]) Lymphocytes [#/volume] in Blood by Automated count 1447.0 cells/uL [facility] ([facility]) Basophils [#/volume] in Blood by Automated count 49.0 cells/uL [facility] ([facility]) Nucleated erythrocytes [#/volume] in Blood DNR [facility] ([facility]) Blasts [#/volume] in Blood DNR NET SM[facility] ([facility]) Neutrophils/100 leukocytes in Blood by Automated count 56.8 % [facility] ([facility]) Promyelocytes/100 leukocytes in Blood by Manual count DNR [facility] ([facility]) Myelocytes/100 leukocytes in Blood by Manual count DNR [facility] ([facility]) Band form neutrophils/100 leukocytes in Blood by Manual count DNR [facility] ([facility]) Metamyelocytes/100 leukocytes in Blood by Manual count DNR [facility] ([facility]) Lymphocytes/100 leukocytes in Blood by Automated count 26.8 % [facility] ([facility]) Monocytes/100 leukocytes in Blood by Automated count 13.6 % [facility] ([facility]) Variant lymphocytes/100 leukocytes in Blood DNR [facility]ART ([facility]) Blasts/100 leukocytes in Blood by Manual count DNR [facility] ([facility]) Basophils/100 leukocytes in Blood by Automated count 0.9 % [facility] ([facility]) Eosinophils/100 leukocytes in Blood by Automated count 1.9 % [facility] ([facility]) Nucleated erythrocytes/100 leukocytes [Ratio] in Blood DNR [facility] ([facility]) Hepatitis C virus Ab Signal/Cutoff in Serum or Plasma by Immunoassay 31.4 [facility] ([facility]) Service comment DNR [facility]SMART ([facility]) Hepatitis C virus Ab [Presence] in Serum or Plasma by Immunoassay R EACTIVE NETSMART ([facility]) QUESTION: NETSMART ([facility]) CONTACT: NETSMART ([facility]) QUESTION/PROBLEM: NETSMART ([facility]) Gamma interferon background [Units/volume] in Blood by Immunoass ay 0.07 IU/mL [facility]SM[facility] ([facility]) Mycobacterium tuberculosis stimulated gamma interferon [Presence] in Blood NEGATIVE [facility]SMART ([facility]) RESOLUTION: NETSMART ([facility]) Reagin Ab [Presence] in Serum by RPR NON-REACTIVE [facility] ([facility]) Mycobacterium tuberculosis stimulated ga mma interferon [Units/volume] corrected for background in Blood 0.01 IU/mL [facility] ([facility]) Mitogen stimulated gamma interferon [Uni ts/volume] corrected for background in Blood >10.00 [facility] ([facility]) M TB IFN-g CD4+CD8+ bckgrnd cor Bld-aCnc 0.01 IU/mL [facility]SM[facility] ([facility]) Hepatitis C virus RNA [log units/volume] (viral load) in Serum or Plasma by Probe and target amplification method [facility]SM[facility] ([facility]) Hepatitis C virus RNA [Units/volume] (vi ral load) in Serum or Plasma by Probe and target amplification method NETS MART ([facility] [employer]) Hepatitis C virus RNA [log units/volume] (viral load) in Serum or Plasma by Probe and target amplification method [facility] ([facility] [employer]) Hepatitis C virus RNA [Units/volume] (vi ral load) in Serum or Plasma by Probe and target amplification method [facility] [employer] ([facility] [employer]) Hepatitis C virus RNA [Units/volume] (vi ral load) in Serum or Plasma by Probe and target amplification method 349549.0 IU/mL [facility] ([facility] [employer]) Hepatitis C virus RNA [log units/volume] (viral load) in Serum or Plasma by Probe and target amplification method [facility] ([facility] [employer]) Hepatitis C virus RNA [Units/volume] (vi ral load) in Serum or Plasma by Probe and target amplification method [facility] [employer]) Comment [Interpretation] Left eye Narrative Ophthalmometer [facility] ([employer]) Hepatitis C virus RNA [log units/volume] (viral load) in Serum or Plasma by Probe and target amplification method 5.08 Log IU/mL [facility] [employer]) ID Date Data Source [id number] 11/24/2019 01:38:00 PM EDT [employer] FASTING:NOFASTING: NOReceived: 0 at 05:47:00 QPT: [facility], [address], [address] [place] [address], [phone] MD Received: 11/17/2019 at 05:47:00 QPT : [facility] [address], [address] [place] [address], [phone] MD Received: 11/17/2019 at 05:47:00 QPT : [facility], [address] [place] [address], [phone] MD Received: 11/17/2019 at 05:47:00 QPT : [facility], [address] [place] [address], [phone] MD Received: 11/17/2019 at 05:47:00 QPT : [facility] [address], [address] [place] [address], [phone], Taye Rodríguez MD Received: 11/17/2019 at 05:47:00 QPT : [facility], [address], [address] [place], [phone], Taye Rodríguez MD Received: 11/17/2019 at 05:47:00 QPT : [facility], [address], [address] [place], [phone], Taye Rodríguez MD Received: 11/17/2019 at 05:47:00 QPT : [facility], [address], [address] [place], [phone], Taye Rodríguez MD Name Value Range Interpretation Code Description Data Milena rce(s) Supporting Document(s) Glucose [Mass/volume] in Serum or Plasma 81 mg/dL 65-139 Normal (applies to non- numeric results) [facility] Non-fasting reference interval Urea nitrogen [Mass/volume] in Serum or Plasma 17 mg/dL 7 -25 Normal (applies to non-numeric results) [facility] Creatinine [Mass/volume] in Serum or Plasma 0.89 mg/dL 0.60 -1.35 Normal (applies to non-numeric results) [facility] Glomerular filtration rate/1.73 sq M.pre dicted [Volume Rate/Area] in Serum, Plasma or Blood by Creatinine-based formula (MDRD) 100 mL/min/1.73m2 > OR = 60 Normal (applies to non-numeric results) [facility] Glomerular filtration rate/1.73 sq M pre dicted among blacks [Volume Rate/Area] in Serum or Plasma by Creatinine-based formula (MDRD) 116 mL/min/1.73m2 > OR = 60 Normal (applies to non-numeric results) [facility] Urea nitrogen/Creatinine [Mass Ratio] in Serum or Plasma NOT APPLICABLE (calc) 6-22 [facility] Sodium [Moles/volume] in Serum or Plasma 139 mmol/L 135-146 Normal (applies to non-numeric results) [facility] Potassium [Moles/volume] in Serum or Plasma 4.5 mmol/L 3.5- 5.3 Normal (applies to non-numeric results) [facility] Chloride [Moles/volume] in Serum or Plasma 103 mmol/L 98-11 0 Normal (applies to non-numeric results) [facility] Carbon dioxide, total [Moles/volume] in Serum or Plasma 28 mmol/ L 20-32 Normal (applies to non-numeric results) [facility] Calcium [Mass/volume] in Serum or Plasma 8.9 mg/dL 8.6-10. 3 Normal (applies to non-numeric results) [facility] Protein [Mass/volume] in Serum or Plasma 6.7 g/dL 6.1-8.1 Normal (applies to non-numeric results) [facility] Albumin [Mass/volume] in Serum or Plasma 4.0 g/dL 3.6-5.1 Normal (applies to non-numeric results) [facility] Globulin [Mass/volume] in Serum by calculation 2.7 g/dL (calc) 1 .9-3.7 Normal (applies to non-numeric results) [facility] Albumin/Globulin [Mass Ratio] in Serum or Plasma 1.5 (calc) 1.0-2.5 Normal (applies to non-numeric results) [facility] Bilirubin.total [Mass/volume] in Serum or Plasma 0.6 mg/dL 0.2-1.2 Normal (applies to non-numeric results) [facility] Alkaline phosphatase [Enzymatic activity/volume] in Serum or Plasma 81 U/L 36-130 Normal (applies to non-numeric results) [facility] Aspartate aminotransferase [Enzymatic activity/volume] in Serum or Plasma 190 U/L 10-40 Above high normal [facility] Alanine aminotransferase [Enzymatic activity/volume] in Seru m or Plasma 238 U/L 9-46 Above high normal [facility] ID Date Data Source [id number] 11/24/2019 01:38:00 PM EDT [facility] FASTING:NOFASTING: NOReceived: 0 at 05:47:00 QPT: [facility] [address], [address] [place] [address], [phone] MD Received: 11/17/2019 at 05:47:00 QPT : [address], [address] [place] [address], [phone] MD Received: 11/17/2019 at 05:47:00 QPT : [address], [address] [place] [address], [phone], Taye Rodríguez MD Received: 11/17/2019 at 05:47:00 QPT : [facility], [address], [address] [place], [address], Taye Rodríguez MD Received: 11/17/2019 at 05:47:00 QPT : [facility], [address], [address] [place], [address], Taye Rodríguez MD Received: 11/17/2019 at 05:47:00 QPT : [facility], [address], [address] [place], [address], Taye Rodríguez MD Received: 11/17/2019 at 05:47:00 QPT : [facility], [address], [address] [place], [address], Taye Rodríguez MD Received: 11/17/2019 at 05:47:00 QPT : [facility], [address], [address] [place], [address], Taye Rodríguez MD Name Value Range Interpretation Code Description Data Milena rce(s) Supporting Document(s) Color of Urine YELLOW YELLOW Normal (applies to non-numeric r esults) [facility] Appearance of Urine TURBID CLEAR Abnormal (applies to non-nu meric results) [facility] Specific gravity of Urine by Test strip 1.003 1.001-1. 035 Normal (applies to non-numeric results) [facility] pH of Urine by Test strip 6.0 5.0-8.0 Normal (applies to non-numeric results) [facility] Glucose [Presence] in Urine by Test strip NEGATIVE NEGATI VE Normal (applies to non-numeric results) [facility] Bilirubin.total [Presence] in Urine by Test strip NEGATIVE NEGATIVE Normal (applies to non-numeric results) [facility] Ketones [Presence] in Urine by Test strip NEGATIVE NEGATI VE Normal (applies to non-numeric results) [facility] Hemoglobin [Presence] in Urine by Test strip NEGATIVE NEG ATIVE Normal (applies to non-numeric results) [facility] Protein [Presence] in Urine by Test strip NEGATIVE NEGATI VE Normal (applies to non-numeric results) [facility] Nitrite [Presence] in Urine by Test strip NEGATIVE NEGATI VE Normal (applies to non-numeric results) [facility] Leukocyte esterase [Presence] in Urine by Test strip NEGATIVE NEGATIVE Normal (applies to non-numeric results) [facility] Leukocytes [#/area] in Urine sediment by Microscopy high pow er field 0-5 /HPF < OR = 5 Normal (applies to non-numeric results) [facility] Erythrocytes [#/area] in Urine sediment by Microscopy high p ower field 0-2 /HPF < OR = 2 Normal (applies to non-numeric results) [facility] Epithelial cells.squamous [#/area] in Ur ine sediment by Microscopy high power field 0-5 /HPF < OR = 5 [facility] Bacteria [#/area] in Urine sediment by Microscopy high power field NONE SEEN /HPF NONE SEEN Normal (applies to non-numeric results) [facility] Calcium oxalate crystals [#/area] in Uri ne sediment by Microscopy high power field FEW /HPF NONE OR FEW Normal (applies to non-numeric results) [facility] Amorphous sediment [Presence] in Urine sediment by Light quan roscopy MANY /HPF NONE OR FEW Abnormal (applies to non-numeric results) [facility] Hyaline casts [#/area] in Urine sediment by Microscopy low power field NONE SEEN /LPF NONE SEEN Normal (applies to non-numeric results) [facility] ID Date Data Source [id number] 11/24/2019 01:38:00 PM EDT [facility] FASTING:NOFASTING: NOReceived: 0 at 05:47:00 [facility]: [facility], [address], [address] [place] [address], [phone] MD Received: 11/17/2019 at 05:47:00 QPT : [facility], [address] [place] [address], [phone] MD Received: 11/17/2019 at 05:47:00 [facility] : [facility], [address] [place] [address], [phone] MD Received: 11/17/2019 at 05:47:00 QPT : [facility] [address], [address] [place] [address], [phone] MD Received: 11/17/2019 at 05:47:00 QPT : [facility], [address], [address] [place], [address], Taye Rodríguez MD Received: 11/17/2019 at 05:47:00 QPT : [facility], [address], [address] [place], [address], Taye Rodríguez MD Received: 11/17/2019 at 05:47:00 QPT : [facility], [address], [address] [place], [address], Taye Rodríguez MD Received: 11/17/2019 at 05:47:00 QPT : [facility], [address], [address] [place], [address], Taye Rodríguez MD Name Value Range Interpretation Code Description Data Milena rce(s) Supporting Document(s) Leukocytes [#/volume] in Blood by Automated count 5.4 Thousand/u L 3.8-10.8 Normal (applies to non-numeric results) [facility] Erythrocytes [#/volume] in Blood by Automated count 4.75 Million /uL 4.20-5.80 Normal (applies to non-numeric results) [facility] Hemoglobin [Mass/volume] in Blood 13.8 g/dL 13.2-17.1 Normal (applies to non- numeric results) [facility] Hematocrit [Volume Fraction] of Blood by Automated count 41.6 % 38.5-50.0 Normal (applies to non-numeric results) [facility] Erythrocyte mean corpuscular volume [Entitic volume] by Auto mated count 87.6 fL 80.0-100.0 Normal (applies to non-numeric results) [facility] Erythrocyte mean corpuscular hemoglobin [Entitic mass] by Automated count 29.1 pg 27.0-33.0 Normal (applies to non-numeric results) [facility] Erythrocyte mean corpuscular hemoglobin concentration [Mass/volume] by Automated count 33.2 g/dL 32.0-36.0 Normal (applies to non-numeric results) [facility] Erythrocyte distribution width [Ratio] by Automated count 12.9 % 11.0-15.0 Normal (applies to non-numeric results) [facility] Platelets [#/volume] in Blood by Automated count 363 Thousand/uL 140-400 Normal (applies to non-numeric results) [facility] Platelet mean volume [Entitic volume] in Blood by [place] 11. 2 fL 7.5-12.5 Normal (applies to non-numeric results) [facility] Neutrophils [#/volume] in Blood by Automated count 3067 cells/uL 2870-5204 Normal (applies to non-numeric results) [facility] Lymphocytes [#/volume] in Blood by Automated count 1447 cells/uL 850-3900 Normal (applies to non-numeric results) [facility] Monocytes [#/volume] in Blood by Automated count 734 cells/uL 200-950 Normal (applies to non-numeric results) [facility] Eosinophils [#/volume] in Blood by Automated count 103 cells/uL 15-500 Normal (applies to non-numeric results) [facility] Basophils [#/volume] in Blood by Automated count 49 cells/uL 0-200 Normal (applies to non-numeric results) [facility] Neutrophils/100 leukocytes in Blood by Automated count 56.8 % 38-80 Normal (applies to non-numeric results) [facility] Lymphocytes/100 leukocytes in Blood by Automated count 26.8 % 15-49 Normal (applies to non-numeric results) [facility] Monocytes/100 leukocytes in Blood by Automated count 13.6 % 0-13 Above high normal [facility] Eosinophils/100 leukocytes in Blood by Automated count 1.9 % 0-8 Normal (applies to non-numeric results) [facility] Basophils/100 leukocytes in Blood by Automated count 0.9 % 0-2 Normal (applies to non-numeric results) [facility] ID Date Data Source [id number] 11/24/2019 01:38:00 PM EDT [facility] FASTING:NOFASTING: NOReceived: 0 at 05:47:00 QPT: [facility], [address] [place] [address], [phone], Taye Rodríguez MD Received: 11/17/2019 at 05:47:00 QPT : [facility], [address] [place] [address], [phone], Taye Rodríguez MD Received: 11/17/2019 at 05:47:00 QPT : [facility], [address], [address] [place], [address]Taye MD Received: 11/17/2019 at 05:47:00 QPT : [facility], [address], [address] [place], [address], Taye Rodríguez MD Received: 11/17/2019 at 05:47:00 QPT : [facility], [address], [address] [place], [phone] MD Received: 11/17/2019 at 05:47:00 QPT : [facility], [address], [address] [place], [address], Taye Rodríguez MD Received: 11/17/2019 at 05:47:00 QPT : [facility], [address], [address] [place], [address], Taye Rodríguez MD Received: 11/17/2019 at 05:47:00 QPT : [facility], [address], [address] [place], [address], Taye Rodríguez MD Name Value Range Interpretation Code Description Data Milena rce(s) Supporting Document(s) Hepatitis C virus Ab [Presence] in Serum or Plasma by Immuno assay REACTIVE NON-REACTIVE Abnormal (applies to non-numeric results) [facility] Hepatitis C virus Ab Signal/Cutoff in Serum or Plasma by Imm unoassay 31.40 <1.00 Above high normal [facility] HCV antibody was reactive. The sample wi ll be testedfor HCV RNA by a Nucleic Acid Amplification Test (NAAT)to determine if the patient has a current activeinfection. ID Date Data Source [id number] 11/24/2019 01:38:00 PM EDT [facility] FASTING:NOFASTING: NOReceived: 0 at 05:47:00 QPT: [facility], [address], [address] [place], [address]Taye MD Received: 11/17/2019 at 05:47:00 QPT : [facility], [address], [address] [place], [phone] MD Received: 11/17/2019 at 05:47:00 QPT : [facility], [address], [address] [place], [address], Taye Rodríguez MD Received: 11/17/2019 at 05:47:00 QPT : [facility], [address], [address] [place], [address], Taye Rodríguez MD Received: 11/17/2019 at 05:47:00 QPT : [facility], [address], [address] [place], [address], Taye Rodríguez MD Received: 11/17/2019 at 05:47:00 QPT : [facility], [address], [address] [place], [address]Taye MD Received: 11/17/2019 at 05:47:00 QPT : [facility], [address], [address] [place], [address]Taye MD Received: 11/17/2019 at 05:47:00 QPT : [facility], [address], [address] [place], [address], Taye Rodríguez MD Name Value Range Interpretation Code Description Data Milena rce(s) Supporting Document(s) Hepatitis C virus RNA [Units/volume] (vi ral load) in Serum or Plasma by Probe and target amplification method [id number] IU/mL NOT DETECTED Above high normal [facility] Hepatitis C virus RNA [log units/volume] (viral load) in Serum or Plasma by Probe and target amplification method 5.08 Log IU/mL NOT DETECTED Ab ove high normal [facility] HCV RNA was detected. This result provid es laboratoryevidence of a current active HCV infection. COMMENT [facility] This test was performed using Real-Time Polymerase ChainReaction.Reportable Range: 15 IU/mL to 100,000,000 IU/mL(1.18 Log IU/mL to 8.00 Log IU/mL).The analytical performance characteristics of thisassay have been determined by [employer].The modifications have not been cleared or approved bythe FDA. This assay has been validated pursuant to theCLIA regulations and is used for clinical purposes.For more information on this test, go to:http://education.[employer]/faq/KZC76o4(This link is being provided for informational/educational purposes only.)This assay is intended for use as an aid in thediagnosis of HCV infection and the management ofHCV infected patients undergoing anti-viral therapy. ID Date Data Source [id number] 11/17/2019 06:15:00 PM EDT [facility] FASTING:NOFASTING: NOReceived: 0 at 05:47:00 QPT: [facility], [address], [address] [place] [address], [phone] MD Received: 11/17/2019 at 05:47:00 QPT : [facility], [address], [address] [place] [address], [phone] MD Received: 11/17/2019 at 05:47:00 QPT : [facility], [address], [address] [place] [address], [phone], Taye Rodríguez MD Received: 11/17/2019 at 05:47:00 QPT : [facility], [address], [address] [place] [address], [phone], Taye Rodríguez MD Received: 11/17/2019 at 05:47:00 QPT : [facility], [address], [address] [place] [address], [phone] MD Received: 11/17/2019 at 05:47:00 QPT : [facility], [address], [address] [place] [address], [phone] MD Received: 11/17/2019 at 05:47:00 QPT : [facility], [address], [address] [place], [address]Taye MD Received: 11/17/2019 at 05:47:00 QPT : [facility], [address], [address] [place] [address], [phone], Taey Rodríguez MD Name Value Range Interpretation Code Description Data Milena rce(s) Supporting Document(s) QUESTION/PROBLEM: [facility] QUESTION: [facility] CONTACT: [facility] RESOLUTION: [facility] ID Date Data Source [id number] 11/24/2019 01:38:00 PM EDT [facility] FASTING:NOFASTING: NOReceived: 0 at 05:47:00 QPT: [facility], [address], [address] [place] [address], [phone], Taye Rodríguez MD Received: 11/17/2019 at 05:47:00 QPT : [facility], [address], [address] [place] [address], [phone], Taye Rodríguez MD Received: 11/17/2019 at 05:47:00 QPT : [facility], [address], [address] [place] [address], [phone], Taye Rodríguez MD Received: 11/17/2019 at 05:47:00 QPT : [facility], [address], [address] [place] [address], [phone], Taye Rodríguez MD Received: 11/17/2019 at 05:47:00 QPT : [facility], [address], [address] [place] [address], [phone], Taye Rodríguez MD Received: 11/17/2019 at 05:47:00 QPT : [facility], [address], [address] [place] [address], [phone], Taye Rodríguez MD Received: 11/17/2019 at 05:47:00 QPT : [facility], [address], [address] [place] [address], [phone] MD Received: 11/17/2019 at 05:47:00 QPT : [facility], [address], [address] [place] [address], [phone], Taye Rodríguez MD Name Value Range Interpretation Code Description Data Milena rce(s) Supporting Document(s) Reagin Ab [Presence] in Serum by RPR NON-REACTIVE NON-REACTIV E Normal (applies to non-numeric results) [facility] ID Date Data Source [id number] 11/24/2019 01:38:00 PM EDT [facility] FASTING:NOFASTING: NOReceived: 0 at 05:47:00 QPT: [facility], [address], [address] [place] [address], [phone], Taye Rodríguez MD Received: 11/17/2019 at 05:47:00 QPT : [facility], [address], [address] [place] [address], [phone], Taye Rodríguez MD Received: 11/17/2019 at 05:47:00 QPT : [facility], [address], [address] [place] [address], [phone], Taye Rodríguez MD Received: 11/17/2019 at 05:47:00 QPT : [facility], [address], [address] [place] [address], [phone], Taye Rodríguez MD Received: 11/17/2019 at 05:47:00 QPT : [facility], [address], [address] [place] [address], [phone], Taye Rodríguez MD Received: 11/17/2019 at 05:47:00 QPT : [facility], [address], [address] [place] [address], [phone], Taye Rodríguez MD Received: 11/17/2019 at 05:47:00 QPT : [facility], [address], [address] [place] [address], [phone], Taye Rodríguez MD Received: 11/17/2019 at 05:47:00 QPT : [facility], [address], [address] [place] [address], [phone], Taye Rodríguez MD Name Value Range Interpretation Code Description Data Milena rce(s) Supporting Document(s) Mycobacterium tuberculosis stimulated gamma interferon [Pres ence] in Blood NEGATIVE Normal (applies to non-numeric results) [facility] Negative test result. M. tuberculosis co mplexinfection unlikely. Gamma interferon background [Units/volume] in Blood by Immunoass ay 0.07 IU/mL Normal (applies to non-numeric results) [facility] Mitogen stimulated gamma interferon [Uni ts/volume] corrected for background in Blood >10.00 IU/mL Normal (applies to non-numeric results) [facility] Mycobacterium tuberculosis stimulated ga mma interferon [Units/volume] corrected for background in Blood 0.01 IU/mL Normal (applies to non-numeric results) [facility] TB2-NIL 0.01 IU/mL Normal (applies to non-numeric resul ts) [facility] The Nil tube value reflects the backgrou nd interferongamma immune response of the patient's blood sample.This value has been subtracted from the patient'sdisplayed TB and Mitogen results.Lower than expected results with the Mitogen tubeprevent false-negative Quantiferon readings bydetecting a patient with a potential immunesuppressive condition and/or suboptimal pre- analyticalspecimen handling.The TB1 Antigen tube is coated with theM. tuberculosis-specific antigens designed to elicitresponses from TB antigen primed CD4+ helperT-lymphocytes.The TB2 Antigen tube is coated with theM. tuberculosis-specific antigens designed to elicitresponses from TB antigen primed CD4+ helper and CD8+cytotoxic T-lymphocytes.For additional information, please refer tohttps://education.[employer]/faq/AOP638(This link is being provided for informational/educational purposes only.) ID Date Data Source [id number] 11/12/2019 02:37:12 AM EDT [facility] Name Value Range Interpretation Code Description Data Milena rce(s) Supporting Document(s) Progress Note [facility] [id number] [facility] [file] [id number]= ID Date Data Source [id number] 09/25/2019 10:07:00 AM EDT [facility] Name: RIVERA LEONE [facility] Rec #: [id number] : 1970 Age/Sex: 49M Date of Service: 09/25/19 DISPOSITION SUMMARY Discharge Summary [facility] Name:Rivera Leone Emergency Department Age:49 yrs Sex:Male :1970 Arrival:09/25/2019 10:07 Departure Date09/25/2019 Departure Time13:04 Private MD:Out of town, Provider Outcome: Hospitalize Location: Observation Condition: Chief Complaint: Suicidal Ideation Diagnosis: Opioid dependence with withdrawal, Other stimulant dependence with withdrawal Prescriptions: Custom Notes: Attending Physician: Sheree Diamond MD Private MD: Out of town, Provider Mid Level Provider: Hospitalizing Provider: Mini Philippe RNP Orders: Acetaminophen Level, Cbc With Auto Differential, Comprehensive Metabolic Prof., Drugs Of Abuse Screen, ETOH, Salicylate, UA., Emergency Room EKG Order - Use EKG Work-Up /Quick Select, Cardiology EKG Interpretation - Choose Reason for Test, 1:1 Supervision, Collect Urine - Clean Catch, hydrOXYzine, Miscellaneous Medication - Non Formulary, Assign to Observation, Nursing Order: Cancel one-to-one sitter. Initiate every 15 minute observation Discharge Instruction: Medication Reconciliation, SBAR Name Value Range Interpretation Code Description Data Milena rce(s) Supporting Document(s) ID Date Data Source [id number] 09/25/2019 10:07:00 AM EDT [facility] Name: RIVERA LEONE [facility] Rec #: [id number] : 1970 Age/Sex: 49M Date of Service: 09/25/19 PHYSICIAN CHART Physician Documentation [facility] Name: Rivera Leone Age: 49 yrs Sex: Male : 1970 Arrival Date: 09/25/2019 Time: 10:07 Bed 6 Private MD: Out of town, Provider ED Physician Sheree Diamond HPI: 09/24 12:05 This 49 yrs old Male presents to ER via [facility] with complaints of Suicidal Ideation. 12:05 pmh HEROIN AND MDMA ADDICTION, SMOKER, PAST HX bj OVERDOSE/SUICIDE ATTEMPTS HOSPITALIZED AT [facility]. Rivera was admitted to our rehab facility 1 week ago for heroin and MDMA use. He was started on Suboxone 8 mg twice daily, and yesterday was started on Abilify and Seroquel. He has not yet received his morning Abilify dose today. He had been doing fairly well until yesterday when he began to have intermittent thoughts about killing himself. The thoughts come and go, he has no plan, and he has taken no action. His main concern is that he feels agitated and jittery despite treatment. His arms and legs want to move constantly, but he finds his arms more bothersome. He has taken hydroxyzine and clonidine in the past for the symptoms and has had good results. He smokes half a pack per day but declines an offer of a nicotine patch.. Historical: - Allergies: No known drug Allergies; - PMHx: Depressive disorder; - PSHx: Appendectomy; - Med Reconciliation:: Green Alert: The patient's med list is complete to the best of the nurse's/provider's knowledge. Medications reviewed, completed by nurse verbally from patient/family. - Immunization history: Flu vaccine is up to date. - Advance directive: There is no existing advanced directive. Information offered. - Family History:: mother is . Father is . - Social History: Smoking status (Tobacco): Patient states is a light tobacco smoker (<10 cigarettes a day). No barriers to communication noted, The patient speaks fluent [place]orese. ROS: 12:13 Constitutional: Negative for fever, chills. ENT: Negative bjh for nasal discharge, sore throat. Respiratory: Negative for cough, shortness of breath. Abdomen/GI: Negative for abdominal pain, nausea, vomiting, diarrhea. MS/extremity: See HPI. Neuro: See HPI. Psych: See HPI. All other systems are negative. Exam: 12:14 Head/Face: Normocephalic, atraumatic. Eyes: Pupils equal bjh round and reactive to light, extra-ocular motions intact. Lids and lashes normal. Conjunctiva and sclera are non-icteric and not injected. Cornea within normal limits. Periorbital areas with no swelling, redness, or edema. 12:14 Neck: Trachea midline, no thyromegaly or masses palpated, and no cervical lymphadenopathy. Supple, full range of motion without nuchal rigidity, or vertebral point tenderness. No Meningismus. 12:14 Back: No spinal tenderness. No costovertebral tenderness. Full range of motion. Skin: Warm, dry with normal turgor. Normal color with no rashes, no lesions, and no evidence of cellulitis. MS/ Extremity: Pulses equal, no cyanosis. Neurovascular intact. Full, normal range of motion. 12:14 Constitutional: The patient appears to have no acute distress, appears afebrile, appears agitated, appears alert, appears to be awake, appears comfortable, is not diaphoretic, does not appear to be toxic. 12:14 ENT: External ear(s): are unremarkable, Nose: is normal, Mouth: Oral mucosa: pink and intact, moist, Posterior pharynx: is normal, Dental exam: the patient wears dentures, in place. 12:14 Cardiovascular: Rate: bradycardic, actual rate is 59 bpm, Rhythm: regular, Pulses: Pulses are 2+ in right radial artery, right dorsalis pedis artery, left radial artery and left dorsalis pedis artery. Heart sounds: normal, Edema: is not appreciated. 12:14 Respiratory: the patient does not display signs of respiratory distress, Respirations: normal, Breath sounds: are normal, clear throughout. 12:14 Abdomen/GI: Inspection: abdomen appears normal, flat, Bowel sounds: active, all quadrants, Palpation: abdomen is soft and non-tender, in all quadrants, no appreciated organomegaly, Liver: no appreciated palpable abnormalities. 12:14 Neuro: Orientation: is normal, to person, place, time & situation. Mentation: is normal, Motor: moves all fours. 12:14 Neuro: Abnormal movements: Fairly constant movements both arms and legs, without pathologic type movements. Movement stops easily when he holds his arms.. 12:14 Psych: Behavior/mood is pleasant, cooperative, Affect is calm, Oriented to person, place, time, Patient having thoughts of suicide. Denies suicidal plan. 12:20 Special observations: COWS score is 6 indicating mild bjh withdrawal.. Vital Signs: 10:17 BP 115 / 75; Pulse 70; Resp 18; Temp 97.5; Pulse Ox 99% on tp1 R/A; Weight 58.97 kg; Height 5 ft. 5 in. (165.10 cm); Pain 0/10; 10:40 BP 111 / 74; Pulse 66; Resp 18; Pulse Ox 99% on R/A; awr 11:17 BP 100 / 71; Pulse 59; Resp 18; Pulse Ox 98% on R/A; awr 13:03 BP 107 / 63 LA Supine (auto/reg); Pulse 60; Resp 15 S; Temp kms 98.3(TE); Pulse Ox 100% on R/A; 10:17 Body Mass Index 21.63 (58.97 kg, 165.10 cm) tp1 MDM: 10:23 Patient medically screened. bjh 10:37 ECG: The ECG on this patient demonstrates no evidence of bjh ischemia, sinus bradycardia, Other Rate 58 bpm. Positive axis in leads I and II, negative and aVF. Normal MO 133 ms, normal QRS 86 ms, norm al QTC 371 ms. There is no abnormal ST elevation or depression and T waves are large in leads V2 to V4 but not peaked. There is no old EKG available for comparison. 12:19 Data reviewed: vital signs, nurses notes, lab test bjh result(s), EKG. 12:21 ED course: Mild opiate withdrawal, and symptoms of MDM bjh withdrawal despite treatment in the rehab facility for 1 week with Suboxone, Abilify and Seroquel. He has had fleeting, intermittent thoughts of feeling better off that he is , but has no persistent suicidal ideation, and does not have a specific plan. He was evaluated in the ER by Mnii Amor, the health counselor, who recommends admission to the hospital for observation. He does not see a need for transfer to a psychiatric center for full psychiatric evaluation at this time, as he feels his symptoms are mostly related to withdrawal. Admit to observation.. 12:22 Other consultation: MENTAL HEALTH COUNSELOR, MINI MILLER. See scanned notes.. 09/24 10:39 Order name: Acetaminophen Level; Complete Time: 11:49 [facility] 09/24 11:49 Interpretation: Within normal limits: Aceta < 2.0. [facility] 09/24 10:39 Order name: Cbc With Auto Differential; Complete Time: 11:49b 09/24 11:49 Interpretation: Within normal limits: WBC 6.8; HGB 13.6; [facility] HCT 38.9; PLT 323. 09/24 10:39 Order name: Comprehensive Metabolic Prof.; Complete Time: [facility] 11:49 09/24 11:50 Interpretation: Abnormal: CO2 34.0; GAP < 3.0; BUN 21; GLU [facility] 69; ALB 3.3. 09/24 10:39 Order name: Drugs Of Abuse Screen; Complete Time: 11:49 [facility] 09/24 11:50 Interpretation: Within normal limits: all neg. [facility] 09/24 10:39 Order name: ETOH; Complete Time: 11:49 [facility] 09/24 11:50 Interpretation: Within normal limits: ETOH < 10.0. [facility] 09/24 10:39 Order name: Salicylate; Complete Time: 11:49 [facility] 09/24 11:50 Interpretation: Within normal limits: BARRIE < 1.7. [facility] 09/24 10:39 Order name: UA.; Complete Time: 11:49 [facility] 09/24 11:50 Interpretation: Within normal limits. [facility] 09/24 10:39 Order name: Emergency Room EKG Order - Use EKG Work-Up [facility] /Quick Select; Complete Time: 10:42 09/24 10:39 Order name: Cardiology EKG Interpretation - Choose Reason [facility] for Test; Complete Time: 11:49 09/24 10:39 Order name: 1:1 Supervision; Complete Time: 10:41 [facility] 09/24 10:39 Order name: Collect Urine - Clean Catch; Complete Time: [facility] 10:58 09/24 12:13 Order name: Assign to Observation [facility] 09/24 12:20 Order name: Nursing Order: Cancel one-to-one sitter. [facility] Initiate every 15 minute observation; Complete Time: 12:21 Dispensed Medications: 12:17 Drug: hydrOXYzine 25 mg [hydroxyzine HCl 25 mg tablet (1 dk2 tabs)] Route: PO; 12:29 Drug: Abilify 5 mg Route: PO; dk2 Disposition Summary: 09/25/19 12:11 Hospitalization Ordered Hospitalization Status: Observation [facility] Provider: Mini Philippe [facility] Location: Observation [facility] Room Assignment: [id number](09/25/19 12:14) [facility] Diagnosis - Opioid de pendence with withdrawal [facility] - Other stimulant dependence with withdrawal [facility] Additional Information - Patient Status Observation. [facility] Forms: - Medication Reconciliation [facility] - SBAR [facility] Signatures: Dispatcher [employer] EDMS Ev Sharma, Elvin Reg [facility] Sathish Knapp RN RN tp1 Sheree Diamond MD MD [facility] Pastora Rogers RN RN dk2 Reno Mtz RN RN awr [place] dmd Corrections: (The following items were deleted from the chart) 10:22 10:20 PMHx: Opiat addiction; tp1 tp1 12:13 12:05 pmh HEROIN AND MDMA ADDICTION, SMOKER, PAST HX [facility] OVERDOSE/SUICIDE ATTEMPTS HOSPITALIZED AT [facility]. . [facility] 12:14 12:11 [facility] 14:44 10:20 Home Meds: Abilify 5 mg oral tab 1 tab once daily; tp1dmd 14:44 10:20 Home Meds: Seroquel 300 mg Oral tab 1 tab once daily; dmd tp1 Name Value Range Interpretation Code Description Data Milena rce(s) Supporting Document(s) ID Date Data Source [id number] 09/25/2019 10:07:00 AM EDT [facility] Name: RIVERA LEONE [facility] Rec #: [id number] [birth year] : 1970 Age/Sex: 49M Date of Service: 09/25/19 NURSE CHART Nurse's Notes [facility] Name: Rivera Leone Age: 49 yrs Sex: Male : 1970 Arrival Date: 09/25/2019 Time: 10:07 Bed 6 Private MD: Out of town, Provider Diagnosis: Opioid dependence with withdrawal;Other stimulant dependence with withdrawal Presentation: 09/24 10:14 Transition of care: patient was not received from another 1 setting of care. Presenting complaint: Patient states - " I feel like I'm going to kill myself" Pt comes from our rehab facility where he has been for the last 5 days. For the last 3 days he has been having feelings of wanting to kill himself. He has not developed any plans but has Hx of suicide attempts. Have you travelled in the last 30 days? Yes, Where have you travelled? [place], [place]. Have you had contact with an individual with a confirmed diagnosis of Ebola or COVID-19? No. 10:14 Method Of Arrival: Walk-In tp1 10:14 Acuity: Emergent - 2 tp1 Triage Assessment: 10:17 SEPSIS SCREEN: A Confirmed or Suspected Infection is tp1 Unknown, their temperature is not <96.8 or >100.9, their heart rate is not >90, their RR is not >20, it is unknown if their WBC is <4 or >12, the patient does not have new or unexplained altered mental status. SIRS or Sepsis criteria is not present. 10:18 Suicide Screening: Have you had thoughts of harming tp1 yourself or others? Yes, complete C-SSRS. C-SSRS: In the past month have you wished you were or wished you could go to sleep and not wake up? Yes, visualization of the patient every 15 minutes will be initiated In the past month have you had any actual thoughts of killing yourself? Yes, visualization of the patient every 15 minutes will be initiated In the past month have you been thinking about how you might do this? No, visualization of the patient every 15 minutes will be initiated In the past month have you had these thoughts and had some intention of acting on them? No In the past month have you started to work out or worked out the details of how to kill yourself? Do you intend to carry out this plan? No In your lifetime, have you ever done anything, started to do anything, or prepared to do anything to end your life? Yes. Provider notified, safe room with ligature mitigation prepared for the patient and immediate 1:1 observation initiated Was this within the past 3 months? No. The patient appears to have some mild discomfort, The patient is anxious, cooperative. The patient denies having pain. Neuro: Level of Consciousness is awake, alert, Patient is oriented to person, place and time. Historical: - Allergies: No known drug Allergies; - PMHx: Depressive disorder; - PSHx: Appendectomy; - Med Reconciliation:: Green Alert: The patient's med list is complete to the best of the nurse's/provider's knowledge. Medications reviewed, completed by nurse verbally from patient/family. - Immunization history: Flu vaccine is up to date. - Advance directive: There is no existing advanced directive. Information offered. - Family History:: mother is . Father is . - Social History: Smoking status (Tobacco): Patient states is a light tobacco smoker (<10 cigarettes a day). No barriers to communication noted, The patient speaks fluent [place]. Screenin:22 AUDIT 1. How often do you have a drink containing alcohol? tp1 Never (0 points). Drug Abuse Screening Test: 1. Have you used drugs other than those required for medical reasons? No (0 points), screen is complete, no risk. Abuse screen: Denies threats or abuse. Denies injuries from another. Nutritional screening: No deficits noted. Patient has no identifiable fall risk (Barnett Scale: 0 points). Assessment: 10:39 See Triage Assessment. The patient denies having pain. The awr patient appears to have some mild discomfort, The patient is behaving appropriately according to age, cooperative. Psych: 10:37 Subjective: Patient's mood is sad, Delusions are denied, awr Hallucinations are denied Having thoughts of suicide. Denies suicidal plan. reports previous attempts at suicide in the past (shooting more than normal dose of heroin, running out in front of traffic). Denies any lethal plan today. Objective: Patient is cooperative, Patient speech is normal, Affect is appropriate, Patient has performed self-mutilation by none observed. Patient uses heroin Last use was September 12, 2019. Interventions: Removed personal items and placed in bag. Patient placed in hospital gown. Searched person for dangerous items. Urine collected and sent for urine drug test. Belonging list filled out. 10:39 Consultation: Psych charge account clerk notified of patients arrival. awr Vital Signs: 10:17 BP 115 / 75; Pulse 70; Resp 18; Temp 97.5; Pulse Ox 99% on tp1 R/A; Weight 58.97 kg; Height 5 ft. 5 in. (165.10 cm); Pain 0/10; 10:40 BP 111 / 74; Pulse 66; Resp 18; Pulse Ox 99% on R/A; awr 11:17 BP 100 / 71; Pulse 59; Resp 18; Pulse Ox 98% on R/A; awr 13:03 BP 107 / 63 LA Supine (auto/reg); Pulse 60; Resp 15 S; Temp kms 98.3(TE); Pulse Ox 100% on R/A; 10:17 Body Mass Index 21.63 (58.97 kg, 165.10 cm) tp1 ED Course: 10:08 Patient arrived in ED. smc1 10:13 Out of [facility], Provider is Private Physician. tp1 10:17 Triage completed. tp1 10:17 Arm band placed on right wrist. Patient has correct armband tp1 on for positive identification. 10:18 sitter is at the bedside. awr 10:23 Reno Mtz, RN is Primary Nurse. tp1 10:23 Sheree Diamond MD is Attending Physician. [facility] 10:29 An EKG was obtained and reviewed by Sheree Diamond MD. awr 10:42 Cardiology EKG Interpretation - Choose Reason for Test Sent.awr 10:45 Labs drawn by lab staff. awr 10:58 Urine collected. Clean catch specimen. awr 11:18 Behavioral Health in to speak with patient at this time. awr 1:[address]. 12:08 Mini Philippe RNP is Hospitalizing Provider. [facility] 12:22 1:1 observation lifted at this time, per Dr. Diamond's awr order. Patient placed on 15 minute checks. Diet: Patient given regular meal. 12:23 Radiology: None performed. awr 12:25 No procedures ordered. awr 12:52 Inserted peripheral IV: 20 gauge in palmar aspect of right awr forearm. Administered Medications: 12:17 Drug: hydrOXYzine 25 mg [hydroxyzine HCl 25 mg tablet (1 dk2 tabs)] Route: PO; 12:29 Drug: Abilify 5 mg Route: PO; dk2 Outcome: 12:11 Decision to Hospitalize by Provider. [facility] 12:21 A copy of the SBAR document has been sent to the receiving awr department. 12:25 Patient verbalized understanding of disposition awr instructions. Patient has no functional deficits. 12:25 Patient admitted to the observation unit. 12:25 Condition: stable 12:25 Discharge instructions given to patient, Patient was instructed on purpose of admission . Not Applicable. 12:25 Vitals are Complete in accordance with Emergency Department Policy. 12:30 Report given to AVIS Casanova awr 13:[address] [facility] Signatures: Sathish Knapp RN RN tp1 Molly Hightower NA NA s Sheree Diamond MD MD bjh Morgan, Deborah, RN RN dk2 Reno Mtz RN RN awr Naina Samuel [facility] Corrections: (The follow ing items were deleted from the chart) 10:20 10:17 SEPSIS SCREEN: A Confirmed or Suspected Infection is tp1 Unknown, tp1 10:22 10:20 PMHx: Opiat addiction; tp1 tp1 14:44 10:20 Home Meds: Abilify 5 mg oral tab 1 tab once daily; tp1dmd 14:44 10:20 Home Meds: Seroquel 300 mg Oral tab 1 tab once daily; dmd tp1 Name Value Range Interpretation Code Description Data Milena rce(s) Supporting Document(s) ID Date Data Source [id number] 09/26/2019 08:36:00 AM EDT [facility] Name Value Range Interpretation Code Description Data [facility] rce(s) Supporting Document(s) Sodium 141 mmol/L 137-145 Normal (applies to non-numeric resul ts) [facility] Potassium 3.5-5.1 Normal (applies to non-numeric resul ts) [facility] Chloride 107 mmol/L 98-112 Normal (applies to non-numeric resul ts) [facility] Carbon Dioxide CO2 22.0-33.0 Normal (applies to non-numer ic results) [facility] Anion Gap 4.0-11.0 Below low normal [facility] BUN 21 mg/dL 9-20 Above high normal [facility] Creatinine 0.80-1.50 Normal (applies to non-numeric resul ts) [facility] GFR 76 mL/min >60 Normal (applies to non-numeric resul ts) [facility] Result based on MDRD formula. Glucose Level 79 mg/dL 74-99 Normal (applies to non-numeric re sults) [facility] The reference range is only applicable w hen fasting. Calcium-Uncorrected 8.4-10.2 Normal (applies to non-nume courtney results) [facility] Corrected Calcium 8.4-10.2 Normal (applies to non-numeri c results) [facility] Bilirubin,Total 0.2-1.3 Normal (applies to non-numeric results) [facility] SGOT(AST) 21 U/L 17-59 Normal (applies to non-numeric resul ts) [facility] SGPT(ALT) 19 U/L 21-72 Below low normal [facility] Alkaline Phosphatase 65 U/L 38-126 Normal (applies to non-num giles results) [facility] can increase Alkaline Phosp le vels up to 2 times the normal adult value. Normal values for children and adolescents are 2 to 3 times the normal adult value. Total Protein 6.3-8.2 Below low normal [facility] Albumin 3.5-5.0 Below low normal [facility] ID Date Data Source [id number] 09/26/2019 08:22:00 AM EDT [facility] Name Value Range Interpretation Code Description Data Milena rce(s) Supporting Document(s) White Blood Count 4.8-10.8 Normal (applies to non-numeri c results) [facility] Red Blood Count 4.35-6.08 Normal (applies to non-numeric results) [facility] Hemoglobin 13.0-17.5 Normal (applies to non-numeric resul ts) [facility] Hematocrit 37.7-51.0 Below low normal [facility] Mean Corpuscular Volume 80-94 Normal (applies to non- numeric results) [facility] Mean Corpuscular Hemoglobin 27.0-33.0 Normal (appli es to non-numeric results) [facility] Mean Corpuscular HGB Conc 32.0-36.0 Normal (applies to no n-numeric results) [facility] Red Cell Distribution Width 11.5-14.5 Normal (appli es to non-numeric results) [facility] Platelet Count 298 X10 3/uL 130-450 Normal (applies to non-numeric results) [facility] Mean Platelet Volume 9.6-13.1 Normal (applies to non-num giles results) [facility] Imm Grans% (AUTO) 0 % 0-2 Normal (applies to non-numeri c results) [facility] Neutrophils % (AUTO) 71 % 40-75 Normal (applies to non-num giles results) [facility] Lymphocytes % (AUTO) 20 % 21-46 Below low normal [facility] Monocytes % (AUTO) 8 % 5-12 Normal (applies to non-numer ic results) [facility] Eosinophils % (AUTO) 2 % 1-5 Normal (applies to non-num giles results) [facility] Basophils % (AUTO) 0 % 0-1 Normal (applies to non-numer ic results) [facility] Imm Grans# (AUTO) 0.0-0.5 Normal (applies to non-numeri c results) [facility] Neutrophils # (AUTO) 1.5-8.1 Normal (applies to non-num giles results) [facility] Lymphocytes # (AUTO) 1.0-3.1 Normal (applies to non-num giles results) [facility] Monocytes # (AUTO) 0.2-1.3 Normal (applies to non-numer ic results) [facility] Eosinophils# (AUTO) 0.0-0.5 Normal (applies to non-nume courtney results) [facility] Basophils # (AUTO) 0.0-0.1 Normal (applies to non-numer ic results) [facility] ID Date Data Source [id number] 09/25/2019 11:33:00 AM EDT [facility] Name Value Range Interpretation Code Description Data Milena rce(s) Supporting Document(s) Opiate Screen,Urine Negative Normal (applies to non-nume courtney results) [facility] Barbiturate Screen,Urine Negative Normal (applies to non -numeric results) [facility] Benzodiazepines Scrn,Ur result Negative N ormal (applies to non-numeric results) [facility] Cocaine Screen,Urine Negative Normal (applies to non-num giles results) [facility] Cannabinoid Screen, Ur Negative Normal (applies to non-n umeric results) [facility] Therapeutic Drug Ranges for Emergency an d Rehabilitation Threshold Levels (ng/mL) Cocaine 300 Opiates 300 Cannabinoids 50 Barbiturates 200 Benzodiazepine 200 Methadone 300 Amphetamines 1000 All positive find ings are presumptive and unconfirmed. Confirmation of positive results are performed only at request of provider. Unconfirmed results must not be used for non-medical purposes (i.e. pre-employment and legal purposes) ID Date Data Source [id number] 09/25/2019 11:09:00 AM EDT [facility] Name Value Range Interpretation Code Description Data Milena rce(s) Supporting Document(s) Color,Urine Yellow Normal (applies to non-numeric resu lts) [facility] Clarity,Urine Clear Normal (applies to non-numeric re sults) [facility] Specific [place],Urine 1.001-1.030 Normal (applies to non- numeric results) [facility] PH,Urine 5.0-8.0 Normal (applies to non-numeric resul ts) [facility] Protein,Urine Negative Normal (applies to non-numeric re sults) [facility] Glucose,Urine (UA) Negative Normal (applies to non-numer ic results) [facility] Ketones,Urine Negative Normal (applies to non-numeric re sults) [facility] Blood,Urine Negative Normal (applies to non-numeric resu lts) [facility] Bilirubin,Urine Negative Normal (applies to non-numeric results) [facility] Urobilinogen,Urine Norm 0.2-1 Normal (applies to non-numer ic results) [facility] Leukocyte Esterase,Urine Negative Normal (applies to non -numeric results) [facility] Nitrite,Urine Negative Normal (applies to non-numeric re sults) [facility] ID Date Data Source [id number] 09/25/2019 11:23:00 AM EDT [facility] Name Value Range Interpretation Code Description Data Milena rce(s) Supporting Document(s) Sodium 139 mmol/L 137-145 Normal (applies to non-numeric resul ts) [facility] Potassium 3.5-5.1 Normal (applies to non-numeric resul ts) [facility] Chloride 103 mmol/L 98-112 Normal (applies to non-numeric resul ts) [facility] Carbon Dioxide CO2 22.0-33.0 Above high normal [facility] Anion Gap 4.0-11.0 Below low normal [facility] BUN 21 mg/dL 9-20 Above high normal [facility] Creatinine 0.80-1.50 Normal (applies to non-numeric resul ts) [facility] GFR 64 mL/min >60 Normal (applies to non-numeric resul ts) [facility] Result based on MDRD formula. Glucose Level 69 mg/dL 74-99 Below low normal [facility] The reference range is only applicable w hen fasting. Calcium-Uncorrected 8.4-10.2 Normal (applies to non-nume courtney results) [facility] Corrected Calcium 8.4-10.2 Normal (applies to non-numeri c results) [facility] Bilirubin,Total 0.2-1.3 Normal (applies to non-numeric results) [facility] SGOT(AST) 24 U/L 17-59 Normal (applies to non-numeric resul ts) [facility] SGPT(ALT) 21 U/L 21-72 Normal (applies to non-numeric resul ts) [facility] Alkaline Phosphatase 67 U/L 38-126 Normal (applies to non-num giles results) [facility] can increase Alkaline Phosp le vels up to 2 times the normal adult value. Normal values for children and adolescents are 2 to 3 times the normal adult value. Total Protein 6.3-8.2 Normal (applies to non-numeric re sults) [facility] Albumin 3.5-5.0 Below low normal [facility] ID Date Data Source [id number] 09/25/2019 11:23:00 AM EDT [facility] Name Value Range Interpretation Code Description Data Milena rce(s) Supporting Document(s) Salicylate 0.0-20.0 Normal (applies to non-numeric resul ts) [facility] ID Date Data Source [id number] 09/25/2019 11:23:00 AM EDT [facility] Name Value Range Interpretation Code Description Data Milena rce(s) Supporting Document(s) Acetaminophen 10.0-30.0 Below low normal [facility] ID Date Data Source [id number] 09/25/2019 11:17:00 AM EDT [facility] Name Value Range Interpretation Code Description Data Milena rce(s) Supporting Document(s) White Blood Count 4.8-10.8 Normal (applies to non-numeri c results) [facility] Red Blood Count 4.35-6.08 Normal (applies to non-numeric results) [facility] Hemoglobin 13.0-17.5 Normal (applies to non-numeric resul ts) [facility] Hematocrit 37.7-51.0 Normal (applies to non-numeric resul ts) [facility] [facility] Mean Corpuscular Volume 80-94 Normal (applies to non- numeric results) [facility] Mean Corpuscular Hemoglobin 27.0-33.0 Normal (appli es to non-numeric results) [facility] Mean Corpuscular HGB Conc 32.0-36.0 Normal (applies to no n-numeric results) [facility] Red Cell Distribution Width 11.5-14.5 Below low normal [facility] Platelet Count 323 X10 3/uL 130-450 Normal (applies to non-numeric results) [facility] Mean Platelet Volume 9.6-13.1 Normal (applies to non-num giles results) [facility] Imm Grans% (AUTO) 0 % 0-2 Normal (applies to non-numeri c results) [facility] Neutrophils % (AUTO) 73 % 40-75 Normal (applies to non-num giles results) [facility] Lymphocytes % (AUTO) 17 % 21-46 Below low normal [facility] Monocytes % (AUTO) 8 % 5-12 Normal (applies to non-numer ic results) [facility] Eosinophils % (AUTO) 2 % 1-5 Normal (applies to non-num giles results) [facility] Basophils % (AUTO) 0 % 0-1 Normal (applies to non-numer ic results) [facility] Imm Grans# (AUTO) 0.0-0.5 Normal (applies to non-numeri c results) [facility] Neutrophils # (AUTO) 1.5-8.1 Normal (applies to non-num giles results) [facility] Lymphocytes # (AUTO) 1.0-3.1 Normal (applies to non-num giles results) [facility] Monocytes # (AUTO) 0.2-1.3 Normal (applies to non-numer ic results) [facility] Eosinophils# (AUTO) 0.0-0.5 Normal (applies to non-nume courtney results) [facility] Basophils # (AUTO) 0.0-0.1 Normal (applies to non-numer ic results) [facility] ID Date Data Source [id number] 09/25/2019 11:15:00 AM EDT [facility] Name Value Range Interpretation Code Description Data Milena rce(s) Supporting Document(s) Ethanol Less than 10.0 Normal (applies to non-numeric r esults) [facility] ID Date Data Source [id number] 09/24/2019 01:02:00 PM EDT [facility] Name Value Range Interpretation Code Description Data Milena rce(s) Supporting Document(s) Chlamydia,Urine Negative Normal (applies to non-numeric results) [facility] GC Urine Negative Normal (applies to non-numeric resul ts) [facility] Methodology: Second generation nucleic a nany amplification. ID Date Data Source [id number] 09/20/2019 02:58:00 PM EDT [facility] Name Value Range Interpretation Code Description Data Milena rce(s) Supporting Document(s) Hep Bs Ag Result T-Test Nonreactive Normal (applies to non -numeric results) [facility] ID Date Data Source [id number] 09/20/2019 02:58:00 PM EDT [facility] Name Value Range Interpretation Code Description Data Milena rce(s) Supporting Document(s) HAVM Nonreactive Normal (applies to non-numeric resu lts) [facility] ID Date Data Source [id number] 09/20/2019 02:58:00 PM EDT [facility] Name Value Range Interpretation Code Description Data Milena rce(s) Supporting Document(s) Vitamin D,Total (25OH) 30.0-100.0 Below low normal [facility] Reference Range: <10 ng/mL: Deficien t 10-30 ng/mL: Insufficient 30-100 ng/mL: Sufficient >100 ng/mL: Toxicity possible ID Date Data Source [id number] 09/20/2019 02:58:00 PM EDT [facility] Name Value Range Interpretation Code Description Data Milena rce(s) Supporting Document(s) Syphilis Serology Nonreactive Normal (applies to non-numer ic results) [facility] ID Date Data Source [id number] 09/20/2019 01:13:00 PM EDT [facility] Name Value Range Interpretation Code Description Data Milena rce(s) Supporting Document(s) HIV 1/2 Ab p24 Ag Screen Nonreactive Normal (applies to non-numeric results) [facility] ID Date Data Source [id number] 09/20/2019 11:20:00 AM EDT [facility] Name Value Range Interpretation Code Description Data Milena rce(s) Supporting Document(s) Sodium 138 mmol/L 137-145 Normal (applies to non-numeric resul ts) [facility] Potassium 3.5-5.1 Normal (applies to non-numeric resul ts) [facility] Chloride 105 mmol/L 98-112 Normal (applies to non-numeric resul ts) [facility] Carbon Dioxide CO2 22.0-33.0 Normal (applies to non-numer ic results) [facility] Anion Gap 4.0-11.0 Below low normal [facility] BUN 13 mg/dL 9-20 Normal (applies to non-numeric resul ts) [facility] Creatinine 0.80-1.50 Normal (applies to non-numeric resul ts) [facility] GFR >60 Normal (applies to non-numeric results) [facility] Result based on MDRD formula. Glucose Level 81 mg/dL 74-99 Normal (applies to non-numeric re sults) [facility] The reference range is only applicable w hen fasting. Calcium-Uncorrected 8.4-10.2 Normal (applies to non-nume courtney results) [facility] Corrected Calcium 8.4-10.2 Normal (applies to non-numeri c results) [facility] Bilirubin,Total 0.2-1.3 Normal (applies to non-numeric results) [facility] Bilirubin,Direct 0.0-0.3 Normal (applies to non-numeric results) [facility] SGOT(AST) 22 U/L 17-59 Normal (applies to non-numeric resul ts) [facility] SGPT(ALT) 22 U/L 21-72 Normal (applies to non-numeric resul ts) [facility] Alkaline Phosphatase 87 U/L 38-126 Normal (applies to non-num giles results) [facility] can increase Alkaline Phosp le vels up to 2 times the normal adult value. Normal values for children and adolescents are 2 to 3 times the normal adult value. CPK 109 U/L 39-308 Normal (applies to non-numeric resul ts) [facility] Total Protein 6.3-8.2 Normal (applies to non-numeric re sults) [facility] Albumin 3.5-5.0 Normal (applies to non-numeric resul ts) [facility] Thyroid Stimulate Hormone TSH 0.358-3.740 No rmal (applies to non-numeric results) [facility] ID Date Data Source [id number] 09/20/2019 11:20:00 AM EDT [facility] Name Value Range Interpretation Code Description Data Milena rce(s) Supporting Document(s) Magnesium 1.80-2.40 Above high normal [facility] ID Date Data Source [id number] 09/20/2019 11:20:00 AM EDT [facility] Name Value Range Interpretation Code Description Data Milena rce(s) Supporting Document(s) C-Reactive Protein,Wide Range <3.00 Normal (applies t o non-numeric results) [facility] ID Date Data Source [id number] 09/20/2019 10:31:00 AM EDT [facility] Name Value Range Interpretation Code Description Data Milena rce(s) Supporting Document(s) White Blood Count 4.8-10.8 Normal (applies to non-numeri c results) [facility] Red Blood Count 4.35-6.08 Normal (applies to non-numeric results) [facility] Hemoglobin 13.0-17.5 Normal (applies to non-numeric resul ts) [facility] Hematocrit 37.7-51.0 Normal (applies to non-numeric resul ts) [facility] Mean Corpuscular Volume 80-94 Normal (applies to non- numeric results) [facility] Mean Corpuscular Hemoglobin 27.0-33.0 Normal (appli es to non-numeric results) [facility] Mean Corpuscular HGB Conc 32.0-36.0 Normal (applies to no n-numeric results) [facility] Red Cell Distribution Width 11.5-14.5 Normal (appli es to non-numeric results) [facility] Platelet Count 394 X10 3/uL 130-450 Normal (applies to non-numeric results) [facility] Mean Platelet Volume 9.6-13.1 Normal (applies to non-num giles results) [facility] Imm Grans% (AUTO) 0 % 0-2 Normal (applies to non-numeri c results) [facility] Neutrophils % (AUTO) 67 % 40-75 Normal (applies to non-num giles results) [facility] Lymphocytes % (AUTO) 25 % 21-46 Normal (applies to non-num giles results) [facility] Monocytes % (AUTO) 6 % 5-12 Normal (applies to non-numer ic results) [facility] Eosinophils % (AUTO) 2 % 1-5 Normal (applies to non-num giles results) [facility] Basophils % (AUTO) 0 % 0-1 Normal (applies to non-numer ic results) [facility] Imm Grans# (AUTO) 0.0-0.5 Normal (applies to non-numeri c results) [facility] Neutrophils # (AUTO) 1.5-8.1 Normal (applies to non-num giles results) [facility] Lymphocytes # (AUTO) 1.0-3.1 Normal (applies to non-num giles results) [facility] Monocytes # (AUTO) 0.2-1.3 Normal (applies to non-numer ic results) [facility] Eosinophils# (AUTO) 0.0-0.5 Normal (applies to non-nume courtney results) [facility] Basophils # (AUTO) 0.0-0.1 Normal (applies to non-numer ic results) [facility] ID Date Data Source [id number] 09/19/2019 02:46:00 PM EDT [facility] Name Value Range Interpretation Code Description Data Milena rce(s) Supporting Document(s) Opiate Screen,Urine Negative Normal (applies to non-nume courtney results) [facility] Amphetamine Screen,Urine Negative [facility] Benzodiazepines Scrn,Ur result Negative N ormal (applies to non-numeric results) [facility] Cocaine Screen,Urine Negative Normal (applies to non-num giles results) [facility] Methadone Screen,Urine Negative Normal (applies to non-n umeric results) [facility] Cannabinoid Screen, Ur Negative Normal (applies to non-n umeric results) [facility] Therapeutic Drug Ranges for Emergency an d Rehabilitation Threshold Levels (ng/mL) Cocaine 300 Opiates 300 Cannabinoids 50 Barbiturates 200 Benzodiazepine 200 Methadone 300 Amphetamines 1000 All positive find ings are presumptive and unconfirmed. Confirmation of positive results are performed only at request of provider. Unconfirmed results must not be used for non-medical purposes (i.e. pre-employment and legal purposes) ID Date Data Source [id number] 09/19/2019 02:28:00 PM EDT [facility] Name Value Range Interpretation Code Description Data Milena rce(s) Supporting Document(s) Color,Urine Yellow Normal (applies to non-numeric resu lts) [facility] Clarity,Urine Clear Normal (applies to non-numeric re sults) [facility] Specific [place],Urine 1.001-1.030 Normal (applies to non- numeric results) [facility] PH,Urine 5.0-8.0 Normal (applies to non-numeric resul ts) [facility] Protein,Urine Negative Normal (applies to non-numeric re sults) [facility] Glucose,Urine (UA) Negative Normal (applies to non-numer ic results) [facility] Ketones,Urine Negative Normal (applies to non-numeric re sults) [facility] Blood,Urine Negative Normal (applies to non-numeric resu lts) [facility] Bilirubin,Urine Negative Normal (applies to non-numeric results) [facility] Urobilinogen,Urine Norm 0.2-1 Normal (applies to non-numer ic results) [facility] Leukocyte Esterase,Urine Negative Normal (applies to non -numeric results) [facility] Nitrite,Urine Negative Normal (applies to non-numeric re sults) [facility] ID Date Data Source [id number] 09/12/2019 06:24:00 PM EDT [facility] Name Value Range Interpretation Code Description Data Milena rce(s) Supporting Document(s) HIV Screen result Nonreactive Normal (applies to non-numer ic results) [facility] [address] [place] [address] Director: Gee Hightower MD ID Date Data Source [id number] 09/12/2019 03:41:00 PM EDT [facility] Name Value Range Interpretation Code Description Data Milena rce(s) Supporting Document(s) HIV 1/2 Ab p24 Ag Screen Nonreactive Normal (applies to non-numeric results) [facility] Test Performed By: [facility] [address] [place] [address] Director: Gee Hightower MD ID Date Data Source [id number] 09/12/2019 07:34:00 AM EDT [facility] Name Value Range Interpretation Code Description Data Milena rce(s) Supporting Document(s) Sodium 140 mmol/L 136-145 Normal (applies to non-numeric resul ts) [facility] Potassium 3.5-5.1 Normal (applies to non-numeric resul ts) [facility] Chloride 105 mmol/L 98-107 Normal (applies to non-numeric resul ts) [facility] Carbon Dioxide CO2 21-32 Normal (applies to non-numer ic results) [facility] Anion Gap 5.0-16.0 Normal (applies to non-numeric resul ts) [facility] BUN 11 mg/dL 7-18 Normal (applies to non-numeric results) [facility] Creatinine,Serum 0.8-1.5 Normal (applies to non-numeric results) [facility] GFR >60 Normal (applies to non-numeric results) [facility] Glucose Level 97 mg/dL 60-99 Normal (applies to non-numeric re sults) [facility] Reference range is only applicable when patient is fasting Note the following drug interference: Sulfasalazine Sulfapyridine Can see falsely depressed Can see falsely elevated result with up to 17% results with up to 11% decrease in measurement increase in measurement Recommend patients be collected for this test prior to administration of either drug. Calcium 8.5-10.1 Normal (applies to non-numeric resul ts) [facility] ID Date Data Source [id number] 09/12/2019 07:04:00 AM EDT [facility] Name Value Range Interpretation Code Description Data [facility] rce(s) Supporting Document(s) White Blood Count 3.5-10.5 Normal (applies to non-numeri c results) [facility] Red Blood Count 4.30-5.70 Normal (applies to non-numeric results) [facility] Hemoglobin 13.5-17.5 Normal (applies to non-numeric resul ts) [facility] Hematocrit 38.8-50.0 Normal (applies to non-numeric resul ts) [facility] Mean Corpuscular Volume 81.2-95.1 Normal (applies to non- numeric results) [facility] Mean Corpuscular Hgb 25.6-32.2 Normal (applies to non-num giles results) [facility] Mean Corpuscular Hgb Conc 32.0-36.0 Normal (applies to no n-numeric results) [facility] Red Cell Distribution Width 11.8-15.6 Normal (appli es to non-numeric results) [facility] Platelet Count 360 x10 3/uL 150-450 Normal (applies to non-numeric results) [facility] Mean Platelet Volume 9.4-12.4 Normal (applies to non-num giles results) [facility] Neutrophils% (Auto) 31.0-71.0 Normal (applies to non-nume courtney results) [facility] Lymphocytes% (Auto) 20.0-55.0 Normal (applies to non-nume courtney results) [facility] Monocytes% (Auto) 4.0-12.0 Normal (applies to non-numeri c results) [facility] Eosinophils% (Auto) 1.0-8.0 Normal (applies to non-nume courtney results) [facility] Basophils% (Auto) 0.0-2.0 Normal (applies to non-numeri c results) [facility] Immature Granulocytes% (Auto) 0.0-2.0 Normal (crescencio lies to non-numeric results) [facility] Neutrophils# (Auto) 1.50-6.20 Normal (applies to non-nume courtney results) [facility] Lymphocytes# (Auto) 1.20-4.00 Normal (applies to non-nume courtney results) [facility] Monocytes# (Auto) 0.00-0.90 Normal (applies to non-numeri c results) [facility] Eosinophils# (Auto) 0.00-0.50 Normal (applies to non-nume courtney results) [facility] Basophils# (Auto) 0.00-0.20 Normal (applies to non-numeri c results) [facility] Immature Granulocytes# (Auto) 0.00-7.00 No rmal (applies to non-numeric results) [facility] ID Date Data Source [id number] 09/12/2019 09:43:00 AM EDT [facility] Imaging Services Department Imaging Report [address], [place] [address] %(RAD)RES..[email or web address].filter("line") Name: RIVERA LEONE : 1970 Age/Sex: 49M Ordering Provider: SARAH Goldberg Med Rec #: [id number] Reg Status: DIS IN Room #: 137-1 Date of Service: 09/11/19 Report Number: [id number] cc:SARAH Goldberg; PCP None Send Report To: [id number] US/US Dup Upper Ext Veins Rt Reason for exam: Pain and swelling due to Heroin injection Technique: Ultrasound imaging performed using color flow and spectral Doppler interrogation. FINDINGS: There is no thrombus identified. There is compressibility and augmentation of the right arm vessels. No abnormal fluid collection or evidenceof an abscess. IMPRESSION: Negative right arm venous Doppler. No DVT. REPORT SIGNATURE ON FILE Reported By: Macario Montes DO <Electronically signed by Macario Montes DO> 09/18/19 1051 Dictation Date/Time: 09/11/19 1631 Transcribed Date/Time: 09/12/19 0943 [employer] Mechan[employer] Teacher: ULISSES Name Value Range Interpretation Code Description Data Milena rce(s) Supporting Document(s) ID Date Data Source [id number] 09/13/2019 05:30:00 PM EDT [facility] Name Value Range Interpretation Code Description Data Milena rce(s) Supporting Document(s) Chlamydia,Urine result Negative Normal (applies to non-n umeric results) [facility] Test Performed By: [facility] [address] [place] [address] Director: Gee Hightower MD . GC Urine result Negative Normal (applies to non-numeric results) [facility] Test Performed By: [place] [address] Director: Gee Hightower MD . Methodology: Second generation nucleic acid amplification. ID Date Data Source [id number] 09/13/2019 03:52:00 PM EDT [facility] Name Value Range Interpretation Code Description Data [facility] rce(s) Supporting Document(s) Chlamydia,Urine Negative Normal (applies to non-numeric results) [facility] Test Performed By: [place] [address] Director: Gee Hightower MD . GC Urine Negative Normal (applies to non-numeric resul ts) [facility] Test Performed By: [place] [address] Director: Gee Hightower MD . Methodology: Second generation nucleic acid amplification. ID Date Data Source [id number] 09/13/2019 06:25:00 AM EDT [facility] Name Value Range Interpretation Code Description Data Milena rce(s) Supporting Document(s) Hepatitis A Ab,IgG result Normal (applies to no n-numeric results) [facility] Result indicates no past exposure or imm unity to hepatitis A infection. REFERENCE VALUE Unvaccinated: Negative Vaccinated: Positive Test Performed by: [facility] [address] [place] [id number] Loss Prevention Consultant: Joseph Morales M.D. Ph.D.; CLIA# [id number] ID Date Data Source [id number] 09/10/2019 11:13:00 PM EDT [facility] Name Value Range Interpretation Code Description Data Milena rce(s) Supporting Document(s) Sodium 138 mmol/L 136-145 Normal (applies to non-numeric resul ts) [facility] Potassium 3.5-5.1 Normal (applies to non-numeric resul ts) [facility] Chloride 100 mmol/L 98-107 Normal (applies to non-numeric resul ts) [facility] Carbon Dioxide CO2 21-32 Normal (applies to non-numer ic results) [facility] Anion Gap 5.0-16.0 Normal (applies to non-numeric resul ts) [facility] BUN 10 mg/dL 7-18 Normal (applies to non-numeric results) [facility] Creatinine,Serum 0.8-1.5 Normal (applies to non-numeric results) [facility] GFR >60 Normal (applies to non-numeric results) [facility] Glucose Level 141 mg/dL 60-99 Above high normal [facility] Reference range is only applicable when patient is fasting Note the following drug interference: Sulfasalazine Sulfapyridine Can see falsely depressed Can see falsely elevated result with up to 17% results with up to 11% decrease in measurement increase in measurement Recommend patients be collected for this test prior to administration of either drug. Calcium 8.5-10.1 Normal (applies to non-numeric resul ts) [facility] Bilirubin,Total 0.1-1.9 Normal (applies to non-numeric results) [facility] SGOT(AST) 20 U/L 15-37 Normal (applies to non-numeric resul ts) [facility] Note the following drug interference: Sulfasalazine Sulfapyridine Can see falsely depressed Can see falsely elevated result with up to 10% results with up to 10% decrease in measurement increase in measurement Recommend patients be collected for this test prior to administration of either drug. SGPT(ALT) 18 U/L 12-78 Normal (applies to non-numeric resul ts) [facility] Note the following drug interference: Sulfasalazine Sulfapyridine Can see falsely depressed Can see falsely elevated result with up to 29% results with up to 10% decrease in measurement increase in measurement Recommend patients be collected for this test prior to administration of either drug. Alkaline Phosphatase 88 U/L 38-126 Normal (applies to non-num giles results) [facility] can increase Alkaline Phosp le vels up to 2 times the normal adult value. Normal values for children and adolescents are 2 to 3 times the normal adult value. Total Protein 6.0-8.2 Normal (applies to non-numeric re sults) [facility] Albumin Level 3.4-5.0 Normal (applies to non-numeric re sults) [facility] ID Date Data Source [id number] 09/10/2019 11:13:00 PM EDT [facility] Name Value Range Interpretation Code Description Data Milena rce(s) Supporting Document(s) Bilirubin,Direct 0.05-0.20 Normal (applies to non-numeric results) [facility] ID Date Data Source [id number] 09/10/2019 11:13:00 PM EDT [facility] Name Value Range Interpretation Code Description Data Milena rce(s) Supporting Document(s) Phosphorus 2.5-4.9 Normal (applies to non-numeric resul ts) [facility] ID Date Data Source [id number] 09/10/2019 11:13:00 PM EDT [facility] Name Value Range Interpretation Code Description Data Milena rce(s) Supporting Document(s) Magnesium 1.8-2.4 Normal (applies to non-numeric resul ts) [facility] ID Date Data Source [id number] 09/10/2019 11:13:00 PM EDT [facility] Name Value Range Interpretation Code Description Data Milena rce(s) Supporting Document(s) Thyroid Stimulate Hormone TSH 0.358-3.74 No rmal (applies to non-numeric results) [facility] ID Date Data Source [id number] 09/11/2019 01:42:00 PM EDT [facility] Value Range Interpretation Code Description Data Milena rce(s) Supporting Document(s) Hep Bs Ag result T-Test Nonreactive Normal (applies to non -numeric results) [facility] Test Performed By: [facility] [address] [place] [address] Director: Gee Hightower MD ID Date Data Source [id number] 09/11/2019 01:42:00 PM EDT [facility] Value Range Interpretation Code Description Data Milena rce(s) Supporting Document(s) CPK result 140 U/L 39-308 Normal (applies to non-numeric resul ts) [facility] Test Performed By: [facility] [address] [place] [address] Director: Gee Hightower MD ID Date Data Source [id number] 09/11/2019 01:42:00 PM EDT [facility] Value Range Interpretation Code Description Data Milena rce(s) Supporting Document(s) Syphilis Serology result Nonreactive Normal (applies to non-numeric results) [facility] Test Performed By: [facility] [address] [place] [address] Director: Gee Hightower MD ID Date Data Source [id number] 09/11/2019 01:21:00 PM EDT [facility] Value Range Interpretation Code Description Data Milena rce(s) Supporting Document(s) Hep Bs Ag Result T-Test Nonreactive Normal (applies to non -numeric results) [facility] Test Performed By: [facility] [address] [place] [address] Director: Gee Hightower MD ID Date Data Source [id number] 09/11/2019 01:21:00 PM EDT [facility] Value Range Interpretation Code Description Data Milena rce(s) Supporting Document(s) Syphilis Serology Nonreactive Normal (applies to non-numer ic results) [facility] Test Performed By: [facility] system Laboratory [address] [place] [address] Director: Gee Hightower MD ID Date Data Source [id number] 09/11/2019 12:28:00 PM EDT [facility] Name Value Range Interpretation Code Description Data Milena rce(s) Supporting Document(s) CPK 140 U/L 39-308 Normal (applies to non-numeric resul ts) [facility] Test Performed By: [facility] system [facility] [address] [place] [address] Director: Gee Hightower MD ID Date Data Source [id number] 09/10/2019 10:58:00 PM EDT [facility] Name Value Range Interpretation Code Description Data Milena rce(s) Supporting Document(s) Ethanol Less than 10.0 Normal (applies to non-numeric r esults) [facility] ID Date Data Source [id number] 09/10/2019 10:42:00 PM EDT [facility] Name Value Range Interpretation Code Description Data Milena rce(s) Supporting Document(s) White Blood Count 3.5-10.5 Above high normal [facility] Red Blood Count 4.30-5.70 Normal (applies to non-numeric results) [facility] Hemoglobin 13.5-17.5 Normal (applies to non-numeric resul ts) [facility] Hematocrit 38.8-50.0 Normal (applies to non-numeric resul ts) [facility] Mean Corpuscular Volume 81.2-95.1 Normal (applies to non- numeric results) [facility] Mean Corpuscular Hgb 25.6-32.2 Normal (applies to non-num giles results) [facility] Mean Corpuscular Hgb Conc 32.0-36.0 Normal (applies to no n-numeric results) [facility] Red Cell Distribution Width 11.8-15.6 Normal (appli es to non-numeric results) [facility] Platelet Count 366 x10 3/uL 150-450 Normal (applies to non-numeric results) [facility] Mean Platelet Volume 9.4-12.4 Normal (applies to non-num giles results) [facility] Neutrophils% (Auto) 31.0-71.0 Above high normal [facility] Lymphocytes% (Auto) 20.0-55.[address] [facility] Monocytes% (Auto) 4.0-12.0 Normal (applies to non-numeri c results) [facility] Eosinophils% (Auto) 1.0-8.0 Normal (applies to non-nume courtney results) [facility] Basophils% (Auto) 0.0-2.0 Normal (applies to non-numeri c results) [facility] Immature Granulocytes% (Auto) 0.0-2.0 Normal (crescencio lies to non-numeric results) [facility] Neutrophils# (Auto) 1.50-6.20 Above high normal [facility] Lymphocytes# (Auto) 1.20-4.00 Normal (applies to non-nume courtney results) [facility] Monocytes# (Auto) 0.00-0.90 Normal (applies to non-numeri c results) [facility] Eosinophils# (Auto) 0.00-0.50 Normal (applies to non-nume courtney results) [facility] Basophils# (Auto) 0.00-0.20 Normal (applies to non-numeri c results) [facility] Immature Granulocytes# (Auto) 0.00-7.00 No rmal (applies to non-numeric results) [facility] ID Date Data Source [id number] 09/10/2019 11:16:00 PM EDT [facility] Name Value Range Interpretation Code Description Data Milena rce(s) Supporting Document(s) UDS Phencyclidine Screen Negative Normal (applies to non -numeric results) [facility] UDS Benzodiazepines Screen Negative Normal (applies to n on-numeric results) [facility] UDS Cocaine Screen Negative Normal (applies to non-numer ic results) [facility] UDS Ampetamine Screen Negative [facility] UDS Cannabinoids Screen Negative Normal (applies to non- numeric results) [facility] UDS Opiates Screen Negative [facility] UDS Barbiturates Screen Negative Normal (applies to non- numeric results) [facility] UDS Tricyclic Screen Negative Normal (applies to non-num giles results) [facility] Therapeutic Drug Ranges for Emergency Threshold Levels (ng/mL) PCP 25 Benzodiazepine 300 Cocaine 300 Amphetamines 1000 Cannabinoids 50 Opiates 300 Barbiturates 300 Tricyclic(TCA) 1000 Emergency toxicology analytes exceeding the therapeutic threshold levels are positive. Positive findings are unconfirmed. Positive drug levels may be confirmed at the request of the ordering provider. Results are to be used for medical treatment purposes only. ID Date Data Source [id number] 09/10/2019 10:57:00 PM EDT [facility] Collected By: Nurse Initials: by Time Collected: 7 Name Value Range Interpretation Code Description Data Milena rce(s) Supporting Document(s) Color,Urine Colorl-Dk Y Normal (applies to non-numeric res ults) [facility] Clarity,Urine Clear Normal (applies to non-numeric re sults) [facility] Specific [place],Urine 1.005-1.030 Normal (applies to non- numeric results) [facility] pH,Urine 5.0-8.0 Normal (applies to non-numeric resul ts) [facility] Protein,Urine Negative Normal (applies to non-numeric re sults) [facility] Glucose,Urine Negative Normal (applies to non-numeric re sults) [facility] Ketones,Urine Negative Normal (applies to non-numeric re sults) [facility] Blood,Urine Negative Normal (applies to non-numeric resu lts) [facility] Bilirubin,Urine Negative Normal (applies to non-numeric results) [facility] Urobilinogen,Urine 0.2-1.0 Normal (applies to non-numer ic results) [facility] Leukocyte Esterase,Urine Negative Normal (applies to non -numeric results) [facility] Nitrite,Urine Negative Normal (applies to non-numeric re sults) [facility] ID Date Data Source [id number] 09/13/2019 07:09:00 AM EDT [facility] Name Value Range Interpretation Code Description Data Milena rce(s) Supporting Document(s) Hepatitis A Ab,IgG result Normal (applies to no n-numeric results) [facility] Result indicates no past exposure or imm unity to hepatitis A infection. REFERENCE VALUE Unvaccinated: Negative Vaccinated: Positive Test Performed by: [facility] [place] [address] Loss Prevention Consultant: Joseph Morales M.D. Ph.D.; CLIA# [id number] ID Date Data Source [id number] 05/13/2019 02:28:17 PM EDT [facility] Name Value Range Interpretation Code Description Data Milena rce(s) Supporting Document(s) Discharge Summary [facility] TIJYEr2oYeSGVbZl13/GQByhOTOkw7QxLXixQGd1TWsbYWJwT7GfRYR8hM0rPVX1NMeYIpOmAdBqKdN7 lbm DjCvbGAjXcXCTeEttRDaLaKGlyPrivgNIxHT3FuDV8HAAgN44jFRNiNFAiU1UdGHK8QYE+Pf5SXBFgjH GxKN0ZWfaP4V9OhzLPUV9mJe4thsEA2s8c2cqVaOYQSQsxNV3cnIFVQmRJ2CI8bc6cqrog2oYpaKjOvM MA6nGYzc/51Og0o6pY/h5aQVn6qih0/29/jVOjLmfq 11/R9DFc9L20+7CLXl4XZ/Uo9vLzY8/vvjBI/fyK7DnhnYJkXU8n6cbijCXQ09P8h0m1I13mzj+0aeCb eFkG2TxRLifddYIq5jFzCMzrKJu6b2Trz8hap6QB5i+qi/nKQ0UWggrk0QLJywOinve8Zrlbg9t2IQYn NshJJNgEe1o9leKyDcfAdOmVW2+yvoo60tmmMxSCYI 1jqxmtgLzyjwfhEXjdyXOqH0zAgY9RBBkyo8ejdbqnYIssHkhLnU8FGU9MMCbtLfncjZMl2tIhfSnX9k LuiTvyQGBUc4uo+vJtBSwKqwaHInKfWD0QMJYiCy9dn4aoRNY4MlwuHsRaq96cDLtiqJMtOUaItFQKud 1ejKwyalcBhU32ywarbaL/5xG6kk0AgaecwwRXcJ27 qzX0KX0cjqrIIT0jrSU8o7rVgeKm3VQl9ujno4JJLZJT3FlnqkpTJ1Zwpz0rCCQLglLK98RxnfgeXS0Z LW6xWgcfMLhpZS+IhSH3ocvv3pjB0fTdhoIsKKOtVb0t1xSpMgBiQ3oH+2b4f9li62t8VP+T9efsYerz wWeJ0FgJeAi+f5KeGK/x0JJ0CDt1a7FwqwAFJZJqOv 4ZgKEO2DBgnmOYzE26XO7FOc2uNEScn9o/zFoIa+Tnq+IalYWXfmqy5w3T+HxmdJ2nzUMAekV9zQYqLG tnLWuA2OW6NbKzZ6Yd7sxhL4P+6XAzvwZ5UFEVon9Lxgrf2N4oEAJhhhEhSUnR5BUkYgMk7BC4MFmgwU 8Lyjvl3A52hbbbIZ8/EdYz8PS6veWRopdLorBEAC8Z AjI6rUqH8qEViFFA7IPlOaOCzufnXNvenCfHmubPtPA7AdQgofx1ryuDczESLMMKat54tMFLT8UzSS5U [facility]/1dGUD0dt6gIixrfkJ5SGu+ZpVghrjKrYexM6g3ZEFghxN7jU7CY/st7UUakhWwaMsW89XqKXBYnw [file] ICAgICAgICAgICAgICAgICAgICAgICAgICAgICAgIC AgICAgICAgICAgICAgICAgICAgICANCiAgICAgICAgICAgICAgICAgICAgICAgICAgICAgICAgICAgIC AgICAgICAgICAgICAgICAgICAgICAgICAgICAgICAgICAgICAgICAgICAgICAgICAgICAgICAgICAgIC AgICANCiAgICAgICAgICAgICAgICAgICAgICAgICAg ICAgICAgICAgICAgICAgICAgICAgICAgICAgICAgICAgICAgICAgICAgICAgICAgICAgICAgICAgICAg ICAgICAgICAgICAgICANCiAgICAgICAgICAgICAgICAgICAgICAgICAgICAgICAgICAgICAgICAgICAg ICAgICAgICAgICAgICAgICAgICAgICAgICAgICAgIC AgICAgICAgICAgICAgICAgICAgICAgICANCiAgICAgICAgICAgICAgICAgICAgICAgICAgICAgICAgIC AgICAgICAgICAgICAgICAgICAgICAgICAgICAgICAgICAgICAgICAgICAgICAgICAgICAgICAgICAgIC AgICAgICANCiAgICAgICAgICAgICAgICAgICAgICAg ICAgICAgICAgICAgICAgICAgICAgICAgICAgICAgICAgICAgICAgICAgICAgICAgICAgICAgICAgICAg ICAgICAgICAgICAgICAgICANCiAgICAgICAgICAgICAgICAgICAgICAgICAgICAgICAgICAgICAgICAg ICAgICAgICAgICAgICAgICAgICAgICAgICAgICAgIC AgICAgICAgICAgICAgICAgICAgICAgICAgICANCiAgICAgICAgICAgICAgICAgICAgICAgICAgICAgIC AgICAgICAgICAgICAgICAgICAgICAgICAgICAgICAgICAgICAgICAgICAgICAgICAgICAgICAgICAgIC AgICAgICAgICANCiAgICAgICAgICAgICAgICAgICAg ICAgICAgICAgICAgICAgICAgICAgICAgICAgICAgICAgICAgICAgICAgICAgICAgICAgICAgICAgICAg ICAgICAgICAgICAgICAgICAgICANCiAgICAgICAgICAgICAgICAgICAgICAgICAgICAgICAgICAgICAg ICAgICAgICAgICAgICAgICAgICAgICAgICAgICAgIC AgICAgICAgICAgICAgICAgICAgICAgICAgICAgICANCjw/yPYiB6gzeKMxjlJ7N2iqJn8UXp6UXK2sr9 MnUIJpOTmsehJyPdvFBdJkGLUvHruTAjm2WRprXO6UeCIcC6PoM3JeRMreST5EROLyKDQsfFAfKPAdNS JwMcF7IKMaIQjxGK3WqHHbLZciPVIiMGEuIJ9JXUQf U215vzOcNX5UWx8WTdYdCC9lrr2PZHlwLYZmCdrINos8YFzbAF6MwFEvqKKeOZGeWBODRqUsM3oov5Ub VBauRKWCJVnoVZ6Ph0FogXKrBUb+Rm7XAL4ih7GgBUrlTJNmSU7csp5WFMbKNuKnU1UsgQybVJRzu3Qf KIVeBRFWiO3tMZT1HCE9RPLnxOKrqLQXSUQ2tP8bUH uqdwVaHU3QUDX0ZROaPU3mBCRnEHCjWeWaIJCTVD7UBGCnQHHfaMZlISLoWRLPQM9QNKwrQAK9Jtaear EjoTDuFRqmRI3DJWEaxsEaFEdeJVRMSHw+Rv9GOO2ac2LmPXcvFDFoEH8iyl1KFIfSUyHvM5G2dFToQ8 J7RNpkGz5BOOUqFBWpQVCqBYQFWJjaSA1YSO6vyhJ5 TT6CuUDoWUIgDWVncSXpSTd0Q17eqVSqMGraBB4PEBY+Nacho+Hy6POFAjDNWpTHFdRfTkWXBQJxRfH0Za L3FFc8VuJ3NbDG66uPgbziVsEMwkVB4RNZ4jTDKvYIKBKZ9YdHRplI1vevXtAqBwYSYPShJeV10csXFg BFFaXHT4GUBuQa7SZPStU7ZesfTreAkbkjUiNHPeEV RFYC2JWRkcntIyhOWluGxkME28aUczAP3AOv9CZtIsAJ9edl9JdSKoGe3XBMHqXO8NMNIuBQIiVYCrLR Y0BWEjHkBkSRytNDCtAHPmTQP1IJMkSYPoWN3SJvIyPMCjMCvmVePeUDMzPANbhl1GHBByJLIlLBVpDh DrPPThVZHdTOjdZAWoVWGpMZB3GNSfKDJjPN4GFuAk HIZwSVOkDvCkBSWeZURptr7CNZOhLNDrDzXzSPMvZMDiPLJpCTduKHFjDKA9FOyhNQZtAMUrFR4NDuZd HZFqUDBrNJVuMBWsJNPdqq4QNXIyQWRoJIP5RAEkJSZcMWUlVHngBXKtDKT6CQA0FCUtHAJcEY2GGtGw NOEsRSG4NxBfAEZmORUjcq8OVWPoPPTcLZlrSkKlWC GlDCJoYFhfTUIrASX4RRC6WIOwUIHxDN5NXxCsIEBsRNszZxChDVVsMBZxrl7MCQJhFTKrTdX8VRFtXJ MeEJRwQUpzHSBcZMP0CspiGPSkTJCzJL7ITvVmMUMzBIicGGTrDSQpRRUbvs6URCOiLEDuZHC7IuXzEC UmBNJkHPibJJEqQWS3JbQ9XAWnMMTaQK6GAjJwMUha MFOREpm2BXztR4r3AYGoAT6BY7Xgd8WuCKuhKBHKYWevZH8ojoJpPOPkAi2SU0uHBvh2JaBtUrIfKMS7 FEKoArTlQuKrBAJeZ3JcLXAaTiRiAc2qINg3VUXpEVThSTE2DuZqFZPeDYMnIBIkOLD0HSDkAgN6TeYn JO9WOa4AMmP0YDR7zRUsGc2JEKD0Ml1PPGQVG7PFWv== ID Date Data Source [id number] 05/13/2019 02:12:15 PM EDT [facility] Name Value Range Interpretation Code Description Data Milena rce(s) Supporting Document(s) Progress Notes [facility] CUBWCw8eQeYAAaNl95/NAZrdGVEyx0GwCZmbPYt3ZKkzPFSbX7RyNWY1mC0pPFB8VZbPAqOtNnLeEwD9 lbm [file] 9mQWNVDq4+HGpiaKFhzXohADZIPrc0ZRiJGyHwHC7SHSu= ID Date Data Source [id number] 05/13/2019 02:12:10 PM EDT [facility] Name Value Range Interpretation Code Description Data Milena rce(s) Supporting Document(s) Progress Notes [facility] UJTIYc0zKpGMVyVc42/OSFxsDMYda1ExFJchSLi4DHzmPYRhM5FoDDE8kP1eRWG1SAdIWpFaLuDwChV2 lbm [file] MTliNDA+VK6tZYz+Jt4Zx4UsekM5ozJlQEp8PkR1PYgfFUURKz6S ID Date Data Source [id number] 05/13/2019 01:39:01 PM EDT [facility] Name Value Range Interpretation Code Description Data Milena rce(s) Supporting Document(s) Progress Notes [facility] HSXQFm6fViZARgYl18/SHIheVXPhi6YxMRrkJLx4FYtxIIWsX6MmOSR2mG1nBEX7QXhDKkQpUcZvHnN8 lbm [file] PDLkQ5WpFrWbGD5TGy0AMcA6MSF9iXXwBj7BDjL2PWRWRbShVV4QNUi= ID Date Data Source [id number] 05/13/2019 10:59:59 AM EDT [facility] Name Value Range Interpretation Code Description Data Milena rce(s) Supporting Document(s) Progress Notes [facility] UOBCTj9cQiDBQmZf08/OIXwnDJJjl6GhHQbuRBk0ZDkfOWUfC8GjPAZ4iV6xITG0PVvBJxEsZqBqKdW5 lbm QoFaeDOxLtYRLyQebAVfPtJAthBensuZYbLX0UqZF7VEJzJ78sNGKsRYPxH7QlVROtIMv+Cr8KSXNptZ SoHI8CGodU7Lyyk4q8LR2thF/Pp5XAxaFSXnjtZCBtyAXUS1tMmP9ZMRa36mv3kNpDE1L/eaOkoBz5np 5H8DEBMJayMzcc99PZqibi/vtbHNpUSimq//tH67WY JWubiqI8aYtdL0t2usclGXxpiw2bJDa23fOP0wzazc/UKHgvRIdDL1HPJybMahruBmdZ69w0uiPdgh4l 3ph9YxPZp0GM7TGjv8RY3Z0aG172oYZhyFaqqowwrc9PTTxPVuKVQlFlzb9pWu1dnNMtxu1uGmMvlh3M ZefoQA0b1YAI2hh17NoYeDsT0FhAfr5uEck+ub/Wg6 3L1pDKrVshcaKOUiaVh+1fsAPiRsXhDjChTzSRLB7dTDBRD0PDpT9PN8phlRcYoLoLZy94GUKVIk54zZ FQosiPog+EiPjY88QfoAerM6n3hHgfw22Pa6EWZxuNiYBdMJkHVVgR0LRALyGzUOPF3fORPOckAdTf7C ooOrhyxvWa5J8JuuC8SE352Y+k6DqrKtxOZ4NWObd1 UsXpJTnK2L9B+rhYhDVbQepOHQhu2S06F4eKFb/j2jALfASlonWR/8nE5F5VRUNKc98ir/wk5bn++U8x scott/uYjfMud0Tj60LtAXdqxK7Vi8l6e9L6y4q84yYlK+VPm1fGwrhaHS2giQaqgjLUZFPus6l59n+SMt cbj2JksLy1jN/B+QaIy/im3cb32qn2d0GUV3FnPLGj CcOLkdvWcM1rQh1f3Wr9BxP/yszMvNOmqrOp+moiX3aCwVflz3iCXWOHajswnUV2qSWxp+62U7tqH/cP T++KGpUNeLXug7aUJgUXQVU3JxF1eiBnHrANjSrGZaqYgBPy0TSeJ3+AKGyHLP0k8Hc8t2utDgZtmeta W82bxNKoTnHknbznEVYKkn2xcRANMwBrKRwEaFi2rh BuCWpXLVCHbN4LoGZmUuSYi020an87vz5ym9r+6xywJDDUicPk8bPxzfCwkZwIkgBQDYU/uqIcIhrFiW 4iS/Veu1FuxLwrr08u3doFoFcJhptCpqZf5v0uloUEnrw/ma8W38WgKDFtWf4nrXDfdW9PCVOcO4o6C5 F9AO64B89lc3zA0Mzvdv3y0Pe5fGZISMtX0BWNryUQ GHHPUo3kIkVLZFugxpiCeAj5hG8TUMP3R6XgLkxOp2o4UGL3EOStLaBkfFu23VgNmvCEry3hGREjSIDe F33FW7TZp5u1DrdwHO1zZNI2pXQYHhM4yCNzgkn4SZUNDnKbisQv9m69CI+xWh5r6zsGEY9VEbp4EbKU uE5ocpck4EetJcXCwUnxpEMhW07gbAsM8CPPdKzMIU Q/qs6axgWCYTj9NwjDXsXb5gePTDFsvzLJGIvX8NUcrLV8PgnD9QxQNBavsuiE8j5pHAlqzt0MYv5V8r GXzH3ow1J3wiXNUWOM/CIDIa76IIAwsgQa7aATQug9zTDhHofiiucSSZE1tN/QO0TbZH09hi+MIMIWni JmA5VKi9+jCBZ3USvjDEB0U2Rx+dA4ap6Bf48NQqSU j+Q0I4RmGvFjvwozZhBJpCjyvDvbpPlDm0rQw+6AfnX1i9OMMAdNY2lj8V00YGrBB9W9472O78hBi0Lx j+Pattie+f19Kp3WZS6Qf74hdNi9qAjHjHD3Ep4FfdAs79qv4dph/BGX3NqCHHdRaCCG5llLbmW5SLE8am8 [file] ICAgICAgICAgICAgICAgICAgICAgICAgICAgICAgICAgICAgICAgICAgICAgICAgICAgICAgICAgICAg HFCfQDGbYQSiPRYmKTTxJPRtYSBdTNQkKQZvGK5IEE AgICAgICAgICAgICAgICAgICAgICAgICAgICAgICAgICAgICAgICAgICAgICAgICAgICAgICAgICAgIC WjXODrZJAjRGHpOLIcTZXiBKWfFKEySHRuWQVnHLCcKOAfMYWfBE0XYDZgYBRjCGVpAEQrLDSlKFZbLV AgICAgICAgICAgICAgICAgICAgICAgICAgICAgICAg GPPsLNSsYGKrLKChMIWyUPTbRHIoAVThQDKoTPSwSIXfMVYtWGCaPKTzIMFpHOLbDS1ELVMhEOOnVSCm ICAgICAgICAgICAgICAgICAgICAgICAgICAgICAgICAgICAgICAgICAgICAgICAgICAgICAgICAgICAg ICAgICAgICAgICAgICAgICAgICAgICAgICAgICAgIA 0KICAgICAgICAgICAgICAgICAgICAgICAgICAgICAgICAgICAgICAgICAgICAgICAgICAgICAgICAgIC IgBZMuSXHvJGRlQIBlEJDlJYFqQJAmMMSyDUDyIHAvMBIfSVEvJTMbJL4RCPAsVPGcXSPpPJQyYVIwPU AgICAgICAgICAgICAgICAgICAgICAgICAgICAgICAg YJDoIGTpFVGpGTNxGYWfTWUzVMEqGMBqQHWkKYQzRWDvHBSoQOBhVWAzWCWuXXVyETAqXT7XERRdZBXo ICAgICAgICAgICAgICAgICAgICAgICAgICAgICAgICAgICAgICAgICAgICAgICAgICAgICAgICAgICAg ICAgICAgICAgICAgICAgICAgICAgICAgICAgICAgIC EfZJ8ULYMhYZVvRNFjQMXbKXTeBZUxOANmJGHdTWSqIAGnWUCwCBFvXDXeRBRfJEJbCUGjJRMhLUJdRJ VnEKYfXBIbNDGnRRBtZXReOKHtXAImBWXePFQmDRVdHWBsPJCmOGXoLPAbJV9XNTFzQPAnSVVgITLdMA AgICAgICAgICAgICAgICAgICAgICAgICAgICAgICAg ITEaLIZuFNHaROBySWIlIVCyEHThUSQzGBIqHUYnTZXqHVBaTKZxNOBiIUDjIXAnVPGmLEXjCO4YUDUp ICAgICAgICAgICAgICAgICAgICAgICAgICAgICAgICAgICAgICAgICAgICAgICAgICAgICAgICAgICAg ICAgICAgICAgICAgICAgICAgICAgICAgICAgICAgIC CbWDXiJZ2TOG80fXGmk9S0HERnQF8dkhn/Gh3WMLkegpFceNYsQN3SXwEqJU1nni4URmDsIE5akj0YWU kABbYpA0U2wLLmAXRuVUKBPvUxQ80xNMvaMf37NDdyXDHkNqKaTGw7Yi4AAmCwC5txRZShYhO4BMSaBw ZdLPytKJ1Kp3BdtFWmKDm+Id8QDP8et9XnHMbbCQNk VC7uii0IXMxSUuKgB0YvrlH4RPG9NCRbPu3BTQPqACCkbXSoEsUkZZCABbHdI1IcgP57RMFWPx5+DQpl fdXwDzzXRfU0HFUbb6InONd6JI2QXHTaZKr2sRHiKXEwI1Rrh7JdVx57RPAgKflpTG4sgAEsDCOfbzKa nPO1RBahn3cqJT9JLJX5ZGNeEL0zUECoMQUoOjV1XE MOBQ9ODUFoYNJxlZRvUKWeBGZIXZ8IYVwjJGP2WpdnqyManXUnZOviLZ9BOORkohJhWoZlWNPBJFq+Pg 1BNK0yv6HlJWveXlSvGI9iad3HSCtPBbQpJ5G5kQDcW0R0PNxfOa0UJIWlJWOjLyMkNSHHEMzfCY0HXO 9dulD7OX6KkWUcKIAcFBHogAPwNWa6W83jbOMpYIqz CN7URXB+Nacho+Bx3PZHEpXJUzRMUxOlXbSROPAaOwU7QaU4TPb3PmT3FjHA21kKuyybUmDLggZW0MJT0b EZWzVFKUIB3SiRCoyH1kuqVdHNXaSRWDNgBhO20qaOOxFFZeUSN1HOZnLp0QHXVyK1SvqlCntUlphuKl AHMvMBZDCG9RFFlqxfEeaCZitBkcOL71vRrrSF2BMf 1IFwRfYZ7dyg0UxOFrVo5TGYGkMR9WXDLkSOEqUGXfXWS8XBAaNhPtJTkvRDRgKLBhMHU8KZInIBEbEZ 9VTqWoJZIzYvPeDfbiGOBoYHTgsp9HXQHxXOWcSlRdAgEwBFGrPBSiQWsbPHSrQMOxTWT1OMXzRWNlJE 9NCbFwRFQqPVP3VKloQVHxRDPfcz7EUTJoKBVfZIB1 LHEwBKPfOJZfOBvtLVTsCDUiFnJ4TQRrWRPjKU9GNnMrWELgUVA4IQFdTBCjVMGyjy5BRSAeFZKlUuNn MYGnPZQzXEVnZSllETHgJRBcSPg0IVYfPKCtJP8ZIqVeZBRmRBOoENHoVRLqLISmjg7HBPDuDMCdNVI1 AeViIPQcVKWtXQieCQFiYBM1FbCdORTqCEToPX0DAh BnCYDvYDahMfjxPFZbFMXoxi6BVJZmVSZoQaZ5SjAcPQIjSYEwLPymXFVgYSH9WTs0MPMfAHDgZB9GTz ThVNTnUOr3VwYuLJToYCNmcy5FVAFxUTXkNAM0WxShUMJcDISzPDbwTIItQYV2UnF2OAKgLXDgIX0ANw JbRARsBNe5QGXmMPKaBLFfiu3JRDCyFXCzCDq1WwAo RHUnKZSoBXnfJJLtZUHcNPmwZJVyCFYkLS5YDpKhONMcAoFmFHIaJLHvPZTbka0OFHTmEQEfEXK1NuRk QMHnNMOtULiuACDyUJHpCQU6OGKgNUTsTD6WSwUuZXGqStDyOJWxFWMhGJMclg6DJRToPUXjDpW6XGHi RTEyACEmMGv7spSewADmALx4BK4KL7AarhIqRueVPz 5Wr398EUQ9LDWdKr8TC3caZj9xIEFtHFMOSb3APEn4WnVvS6LoRMu1AaS7RBO0YWbqRwt4LRUsYkOuGk VlNDM+DHftUdJpHBKjWmf1HvD2GrSpU7C7SilfIhRuPAC9LLH8Cu7rXKFYTk3+DQpzdGFydHhyZWYNCj IcGFv9IHwjILTJWt9W ID Date Data Source [id number] 05/13/2019 05:51:33 AM EDT [facility] Name Value Range Interpretation Code Description Data Milena rce(s) Supporting Document(s) Nursing Note [facility] SECALv5ySqOBYoBb48/TMPzzCMUpc7VvNNtrPMm3DKvvFHWlV4SmFUU9yN7yQQF4RUrCImOzXiNsYpT5 lbm [file] PaVLzxDRj3BV8EDEHWD6XRXm== ID Date Data Source [id number] 05/12/2019 09:37:56 PM EDT [facility] Name Value Range Interpretation Code Description Data Milena rce(s) Supporting Document(s) Nursing Note [facility] HLRZFg9jZtLCFmUc81/UBRmaMZQqm8NeGUyrJCy6TSqgNOLwT3JkXQR2fY6kONY4VXzVBwGhJxZqCsN1 lbm [file] AgICAgICAgICAgICAgICAgICAgICAgICAgICAgICAgICAgICAgICAgICAgICAgICAgICAgICAgICAgIC CgICGlIQJbDSPbRNDrHOXuLJ9AWBFbOXRiICKaKAMqJGOuAVZqEHHlNWZhNERoDAWcIFSjFCQrPCLnYH AgICAgICAgICAgICAgICAgICAgICAgICAgICAgICAg XXNtVAWqHRHtBIRaPWEyUYCdTMXoPQQnFJKgWA7HERZaZBOcMAXyCKInEPJxZWSoISTtYUXyXBJgEZKb ICAgICAgICAgICAgICAgICAgICAgICAgICAgICAgICAgICAgICAgICAgICAgICAgICAgICAgICAgICAg JOKbGDUbIYRoJY7QYQBgNWYkNPXnUQVdANGaLDKlQR AgICAgICAgICAgICAgICAgICAgICAgICAgICAgICAgICAgICAgICAgICAgICAgICAgICAgICAgICAgIC EgPJGvCHOhKMAyWQBzCGViVONmZN2RXPFySAGeGFFoONXdHUYyNNLrVIGjIRQfDKVmALAgTTXvSKDtLS AgICAgICAgICAgICAgICAgICAgICAgICAgICAgICAg QHDdZEKxSMCgSSDnSGKlIIVeUVYeCBLuMTNbUBOfVZ3AFZMlEVYkHIUhOMRiOVDjUAHrKMJzSOTyRHTp ICAgICAgICAgICAgICAgICAgICAgICAgICAgICAgICAgICAgICAgICAgICAgICAgICAgICAgICAgICAg IGYcPMJuJHNzYBGvDG3EYSBcYRZcGTIqZUTiPRBpJQ AgICAgICAgICAgICAgICAgICAgICAgICAgICAgICAgICAgICAgICAgICAgICAgICAgICAgICAgICAgIC BwWBJfLSHhBAFtHAEiQKYwGXArSKGuZG9LSVQxYSAnJFBmOBWpUCKbYODwDDByCPCuDVYhJKIgGUWdIR AgICAgICAgICAgICAgICAgICAgICAgICAgICAgICAg RVRiXXBxQKKiFTCeCGRqMUKyFYSyUNFkSZCbHCXyOHPiIU2DIRYxTDJrLZZqJXBdYNYgADQiVTMiJZAx ICAgICAgICAgICAgICAgICAgICAgICAgICAgICAgICAgICAgICAgICAgICAgICAgICAgICAgICAgICAg VUTfTAVuTFUmWMKaVKVuAE9HZLZgVIIfNZZsQLCaCT AgICAgICAgICAgICAgICAgICAgICAgICAgICAgICAgICAgICAgICAgICAgICAgICAgICAgICAgICAgIC IyHAYjIFIoOXGzBXKvVOKrHCKiIPPpZPSgLA3GPQ65zLIeu9N8YKYjIP5pkiy/Jm4GROuyufMnvDKqAV 5GLcDgBU7fkr5GXyPtSJ2mtm3KEReJUtOuN1P8wQPz UVHkHEMHJeYwU80hUTqnPw87OYhvXUCxIfWaGEb4Rm0JLhFjY8bcLAEmFeG5NRCrCsIcCLbbHM8Zj1Kb dCAxDQo+Vs2IMZ0gm9FoSZkyAnSdKE6ovb0BDDwOLaKmJ0RlugA8HZTjRYPwNy4YBSXhAGQoxVEcVhKv HNQZSbUjA1TuzU13IBKOMj0+DQplbmRvYmoNCjIzID Mpy9JjGPi6FM7XLITxBYw7hHQiVaXad2aoWrCTv1MfCWE3WIauYEJtGZXcTjLqmosrR2WlAQDVAOU7EN PsNM8rEDDxPEP8SiX1WLQJZB1ZCAAiKKMriANgZGWoRIWGWS7NZIviOXE0NbmfixLscRBoMYmaMR1TCH JlbnQgMjIgMCBSDQo+Rn3JOI0fy3EcWEouMPEfVV7l kk5UUJeDTpTpN8N5pTQbQ6C8AQswGy3HMSIbJHWvUxCaYOHMEPryIE4RML8dloN4AT4CeYZrWVPyAGTo oVUeIIu4L59jjNLyETyoBG2STNR+Nacho+Zu0QHGLtMEZdQSQlYaOsNHEIMoYsD7LjV8ELq8LzO0LyKS02 rNgzamIiCNhfPW5NJV6yLGPbBDELBW6MqMVzdD9rcs IwJpSxCBXLYxAqQ39qlJKqGLKhXZUvYJSzJh1MZLErB5SaocCuwSnmnxAnHTNjBJIFLT8ETXkjoyKqiV EacAmjGA35tAzcZQ2BTx7TAiEaYA2rbk8IkTFiMu3NGMPvPB3YTDUjXNQqNECqTZI4JOAcYdLnQLkqVM VnXPAkHHF2NZUyDNPdLO3RGbJsBXZhCQz8JQDrATHa BEHjpx8ZCIUhYTTtMCD4CTIcZOZlHPVtZXfiJQKgKORlQCY5GLAyOQQtTG4QRxXqONLlIUVxZcmtKTEd BQFwhi7ZBREdKBBsPVX6DqAtVNDdDBGuOZsiSXPeJGDlMgPbUFHwTIPkHX2CJkLfTUArSQT1KWUpVBGh GYUrar4KBSYqKOMtBmPpAqAuRIEtFMDiFBmlIEBnNQ QnXHs2FHNxVJBgLR2FQpFdMHDlLUX2UFYxEXKpBTMwkp2LJFYyCUNnDqv1TXMaVYYiDNKaCZooJDHqPL O5YrFtCBUyIKEtOY6TDlZoIUXjEQY6JosdIZGkMHKefv5UWDQsFGFbYjdjKMFaPDHfAWXeEThbPMGpZV K3GRt8LDSlQLUuHD7WIkSaJXSrNPkgOjQmAUJeXFIe np8KCLKgOHGrASN6TfGzKIHnMVXfZFjbGOOpFYL9GyClSRMfJBZiXN9FWoZiIGVaOHh0QuTqGLArQCHr ia3DHGIzCQHiMQc1KJUpNEQpVWNzFPveWNWoTHIgSlb4OJClWCOjXU9LJnNlWNDiJiR1ONrfCSWrOFJz ng4FGJTnYSWhUNN7VtOjWNLfQEUsPDy2bfXusUHyWK j4JW9XF9BidvYsBsYFOo4Cl076WYC2WMLjPc0AD1zqTl6nHHFcYVTBVt7KTTv7HeLzGHVbYZBmNRR6WT g6QBw3HwN4XcdyLSTrEqIkJJI+WPt0DfV8QDU8NBF5EKP5PBi7REWcHuJaPTI6JYZ6SvNePI1pKAMAXm 4+SGahxNYmvQgzNYPTEgWbHMBnUHmiDOCRUt5L ID Date Data Source [id number] 05/12/2019 08:54:18 PM EDT [facility] Name Value Range Interpretation Code Description Data Milena rce(s) Supporting Document(s) Nursing Note [facility] RASMBm8eBtDLReMn02/HFQksKLLfg7NbGExeAFd5MAntVJOlS9KpQUM7uO0zBPJ8OTtUKhVaQrVsAdV0 lbm [file] KxRV5ZDYw= ID Date Data Source [id number] 05/12/2019 03:40:42 PM EDT [facility] Name Value Range Interpretation Code Description Data Milena rce(s) Supporting Document(s) Care Plan [facility] CLEAPb5oJvVQNvXn52/HUVkkNPSxg3RgUQghHIh1UEsxXZFyE4IlWYQ3lI2dIBV0BWuTLmYvExNtDsA5 lbm [file] XMBnOyOcET3CIj0OIlR4UDD9eGOvUc3CSmC9URXGRbYrXW7DZDf= ID Date Data Source [id number] 05/12/2019 03:39:06 PM EDT [facility] Name Value Range Interpretation Code Description Data Milena rce(s) Supporting Document(s) Nursing Note [facility] TUVORh7oCjJGEwVj77/USOsqIQWac8SgUEouKQc1OKfvVSCrO1HxLVU4mK0pXRI2HSfZAsKgLjOvFcS5 lbm [file] AgICAgICAgICAgICAgICAgICAgICAgICAgICAgICAg FMObNBDaNQZuYOWzUJDsYOEwHN9JATJjGLNqRGRvHQOhNPCaSOBsELMhLSIlYAOmIGElZJMuGJTvSPPb ICAgICAgICAgICAgICAgICAgICAgICAgICAgICAgICAgICAgICAgICAgICAgICAgICAgICAgICAgICAg YA1NNLIrMKZzWIHcECOtODUnYMHwYSPfAPUcYPMxLL AgICAgICAgICAgICAgICAgICAgICAgICAgICAgICAgICAgICAgICAgICAgICAgICAgICAgICAgICAgIC KbAKXoJAQcVDQpRP0UIHOiVAGxKXNiNSOmFWGrBRGqUGUeOULtANQvARYyLQYyAUTlBQTiPCKnPCZwHG AgICAgICAgICAgICAgICAgICAgICAgICAgICAgICAg HVKkZQWlAMOaJBAiEHVbMSSxDDGtLN3ECVMgIAEcNQFqUKKkYZZkUWIoUPPvYGPgJGPzPAHmDWClJLMr ICAgICAgICAgICAgICAgICAgICAgICAgICAgICAgICAgICAgICAgICAgICAgICAgICAgICAgICAgICAg GNJhFT0YCJOgAPLxJOYeBFQgYNZuAEWzPAZiBXFfNZ AgICAgICAgICAgICAgICAgICAgICAgICAgICAgICAgICAgICAgICAgICAgICAgICAgICAgICAgICAgIC OiOOQmFQPpCMZpPZGwFV9BTGBzAISwNFTnJIWnGLYmIUBxQQMuBYRtEFBdQYKqOIDcGHKqJJOvDOTxVD AgICAgICAgICAgICAgICAgICAgICAgICAgICAgICAg TBRzXHZxZPYrEGZqXESgQGLtVKQoSNOcBT9AIZZrUFVxCOHaFYDyKYDyNBZfONTbHRDtIUBjGFJaZBYt ICAgICAgICAgICAgICAgICAgICAgICAgICAgICAgICAgICAgICAgICAgICAgICAgICAgICAgICAgICAg ZUZsYUMgOW6FXZRyPLZwIGHuFNJnBNElYMQnCEZbML AgICAgICAgICAgICAgICAgICAgICAgICAgICAgICAgICAgICAgICAgICAgICAgICAgICAgICAgICAgIC JsYQLhLJRrRZPgVNPuSLFtLO3BOBSiYEZxHBVpPLQnBWCiKNVmZVYrROToRDZcOXWuNUCgJCBnSASjNS AgICAgICAgICAgICAgICAgICAgICAgICAgICAgICAg CKQtHRGwDHQuJDVjBLUqNKZgSDFoEWSrSTNsCG9MWD30xKHgp2J9BVWiCA3hlyi/As2CVVvhodLtnXZb FK0WNmIfXQ9dxm4EQeYkPK6mhn8FIWyOUlIkQ2Y5yCZiHHStWLKUQiMlT89jRGueHv31GKquDNJcBhLn GMn1On8RRiUmS1doCSTeDpJ3ICWlNyGaJIdiEB4Xb8 VudCAxDQo+Zz8WKW0lo3NsIGcuPeNePY1bah5KRDcFLrArM6MrvsS6FCFbZJTwDj5WCIPmCFDfyGQgJx TeRJHOTiOpI7CucF41MXYJPs8+RTgjurSpMnnEYhUzRSUbx2BpSQi4HR0VQAMuEEa5mGMlWfBdq7abUb SDp3TlRLL6BVl5r00iUVEHzQ85CYPwCZIHCPG8YMPv HC2iIAGqMRUcCxJ6QTHKQQ6DIWEuBUKysTEpTDRfQFSKXO7KNPnkYXA1YgizzaGxbQBjPBlsTH5AMAQj bnQgMjIgMCBSDQo+Gx8LUY4nr1UsLGjcJXEvYD8vfe6QNMvZIkUeZ3V3rFDjA8Y8HGypCt9JJDXfEBEg FaUjNJTVAEdyGN4KVU0mpcP9DS0LxOCuUDQaOLFatC FvNJz0U09qyUEqDFxzUJ2KBUM+Nacho+Rr8EERZrAWAgNTSmWvPxZYEEPmQtW8BcB6VFj8YwI0ClPX84iF uaefRaSQyrGN8EVY3rEXNlOJKQTE9JaCNfmZ7gqfXgRnKpUALLHnCgH88hwGJxUZGuZBTcRLAuZr5GFX GmM1UlfyBrlPtjzjZvTPJwKRKALW2NMAflciThlRVi hSqmRH03xQpjXW8PWd7ZRcBsNN9tqn9YaYKpYn1CYENqSJ6PDKHkLHZsGDSlXKB2MKGlGzAoNXhvGLRx GZUjHUO5WAYqQAEiFW6JYlAkBHFdTUi4AGPbXSTbPPFtnx0YEKTnRGUjZMG5RqQiRWDsNMRxMXfyBBCi BEHuFYH2ESTgNJAeMV7ACnGjSVOmRFJ6TeHeOPHvSC Uxqp2SCNHhINEhEPM0HPLtSRFnQGSoOLshBGJeCYMoQrZ3HODmIQRmIC5HZyJrOZAvVYU1EpabDFKoGZ Vjha9OURPrFTIsPlIoGmBxRQWqZMBqXMdfYWWmSMBwFNoxXVZdJPThKY1XSrRpDPRrLILsTcofDVXwYS Quoj1CMZUsLCAsXQQ6GNFcIVCfXYBbTRecFIQyQGM7 KpO5MWIvYYXgAG8MGtVoHPFxXJwjPoInZTFsPUWgdg5XSGBoQQFpZoGsQAEbJBAhLLIuIZcsDAUwPNR2 KQz1FDYtVKIlDQ2IJjJiSYDdYJd8VcYsKANpVTXtiq1DPEFyMTRoEHI7WbRcNSVzEDNgEOfdHKOoBBC1 OlC2OTXaYVRqSU0OHuNwBTPgHJl3SpHhGHStMHFhxi 0LSBXlPOSbTVHsNbCrZAWaCAXdMCohQGIdETUsTrs2XATpKDUqBI9UKwFkRQMwHkI2FTBuMVXpQKToyt 0NEBBkKOZzWAf4OIIoWMKqWVCkAYh7whAntDUeDTb1LQ8FX9YzhkWzNmXZBl2La424KDZ4XPScTv1KE9 maJw7vQYZqDQXNFj1SRWt2UmM9RBPlE7UsKzI5UKIr LtKaH0GwLZIgXpO1EuP6ZDr+WRsgFPepJHYzNkRyAkW8IzR3WBI4JLXqP7DhHOz7BYe5EW2gORQZWq8+ RWeovFJyfCvgYHJBYtJrWrE1LOalISSSEw5F ID Date Data Source [id number] 05/12/2019 02:20:15 PM EDT [facility] Name Value Range Interpretation Code Description Data Milena rce(s) Supporting Document(s) Treatment Plan [facility] SHWEOw1qZdNBFvEr66/KBNwaNPUdh5LuDFqxRTg6IQnjVFIhP7ZeXTY4eF2mIRE0JMbUWjReGdBwCxZ4 lbm [file] VO4OIjl022n/5Iu+SUPERVIS[employer]ETE [employer] PLANT+ySwScfxjpEaI0jfi9+7poH0gIr5jtl4h9DcMLf3qzOVkiC6+zi31HC12WGp7V [file] yjGBV4UjniNpPlAJ0SKw7OLwI6BFI2jIOvBg2JMfF3LLLLAkZfAH3PRQu= ID Date Data Source [id number] 05/12/2019 05:47:05 AM EDT [facility] Name Value Range Interpretation Code Description Data Milena rce(s) Supporting Document(s) Nursing Note [facility] TZIYFg2tRpYKKpYt04/AQPndZNLrt1WdMHalFJb5KDurVMZoQ1BtYLI5aA1vCTU1XIsGYoFxLyAsSgF1 lbm LoBmsSRzMbGKDcQqiZDmVbFWocLuugxJIwYG5SzGX6GTGaR13gFRBdFTHnE9HpLSz7IS1+OBbcAMX0vv SzfY1GPMCOSD9G7yRDkk+0/+Kar2Ah74zeV57XhMwFKd8B3lhve8GD5MCbNTsU+O/kqV1vR0ZOVTFGPj PRbgki9hzxQdKd/x4NAiHDVXn+b60dHKZ3mHjdQYdK rc6C9nGUIlrPBQFMau5E7AHAckcSnmeBPegQV+aOZoWnOgR59wyZkZ7in3noQvxGW7CqL/A2ZnWvLO3Y hTgkhHGRFyfA3UNFJ6agD78YYBKAqArnAiwaQTRIfYCTEaoKzuRRPArVUOFZPvTgkfWdUZg6rBMTZgGT [file] n6V5NjBCC1OvCwPT2AXs7GVsR0FLJ8iZKvUg3EItS7OWWWYvIiZF8FRNe= ID Date Data Source [id number] 05/12/2019 12:32:51 AM EST [facility] Name Value Range Interpretation Code Description Data Milena rce(s) Supporting Document(s) Nursing Note [facility] IXCTGt6cJlPJNdHf38/WHPwjXUErj8RkFMkeSBz3QYoyBMRfB5ZtQYT6xF6rWJO4NAgEAsLtGkAuHfA9 lbm JfOsmGCiXkLBIfMqiLZjChTArzOxjsbUEfOV5PrTR6VJJeA08wDBStKVBqS1YlVKw7YD1+SBumNPC5ko ZwfD7BAPRDMOsV4ALVpixTz+lPeLLpm3LmnMcT9NKfAkFSUq6lDLDAeytQ8o8J/Taz+4CTtBRQeRK2mYT [file] radial router operator+9D9OT7//+NIHGynj4KHojLotdWN6jU7D2e6kjSayLek+k5hXbTiLNDtgyGs6QCMvZSsm83v7SYpw [file] WC4HNWGWK0DMGk== ID Date Data Source [id number] 05/11/2019 02:30:27 PM EST [facility] Name Value Range Interpretation Code Description Data Milena rce(s) Supporting Document(s) Nursing Note [facility] OMYCYk4hTfKCPrNb97/UXUniLCHzs1UjTLrwRVj7CAypBDZyQ9CtUVL4vO6nWZC0PZnQTkKoBoYjAnV6 lbm [file] MoRXPiJhIfWU9TMp0SHfM0UIS8iWBpXj8IFfC7ECZKKwPuRG8MYUe= ID Date Data Source [id number] 05/11/2019 02:28:17 PM EST [facility] Name Value Range Interpretation Code Description Data Milena rce(s) Supporting Document(s) Care Plan [facility] KEIZDu1aYhXVEbHo06/YPFwbPMGpr4AvIPcsQPp0IXzeSABnU2RuZEX2tW9bOUN5LNqQRuVyQzAnGnJ1 lbm [file] ymVXpbZVEvG6KwWqH6QEX6XKY+OA6wHPg+Wh3Dp5XzukE6iyQkDAogVeS7HG8FTBFXC3EEQg== ID Date Data Source [id number] 05/11/2019 05:37:55 AM EST [facility] Name Value Range Interpretation Code Description Data Milena rce(s) Supporting Document(s) Nursing Note [facility] BZSXQd1nLhRGQbOi90/DOTgpZQQos7QgZQnqLYx1MGnrNUOgN7GyXQP2aH7qLFO6YTbSOqFvVeXsXiA5 lbm [file] ID Date Data Source [id number] 05/11/2019 03:15:57 AM EST [facility] Name Value Range Interpretation Code Description Data Milena rce(s) Supporting Document(s) Care Plan [facility] LENJOn3aPfRZSkQk42/CEIouJGFik5HgSLxfGSc0EBryPNXtU8ZxIUO5zS9jDFZ3QQgQJvOhRcAeFbO3 lbm [file] AgICAgICAgICAgICAgICAgICAgICAgICAgICAgICAg ICAgICAgICAgICAgICAgICAgICAgICAgICAgICAgICAgDQogICAgICAgICAgICAgICAgICAgICAgICAg ICAgICAgICAgICAgICAgICAgICAgICAgICAgICAgICAgICAgICAgICAgICAgICAgICAgICAgICAgICAg ICAgICAgICAgICAgICAgDQogICAgICAgICAgICAgIC AgICAgICAgICAgICAgICAgICAgICAgICAgICAgICAgICAgICAgICAgICAgICAgICAgICAgICAgICAgIC AgICAgICAgICAgICAgICAgICAgICAgICAgDQogICAgICAgICAgICAgICAgICAgICAgICAgICAgICAgIC AgICAgICAgICAgICAgICAgICAgICAgICAgICAgICAg ICAgICAgICAgICAgICAgICAgICAgICAgICAgICAgICAgICAgDQogICAgICAgICAgICAgICAgICAgICAg ICAgICAgICAgICAgICAgICAgICAgICAgICAgICAgICAgICAgICAgICAgICAgICAgICAgICAgICAgICAg ICAgICAgICAgICAgICAgICAgDQogICAgICAgICAgIC AgICAgICAgICAgICAgICAgICAgICAgICAgICAgICAgICAgICAgICAgICAgICAgICAgICAgICAgICAgIC AgICAgICAgICAgICAgICAgICAgICAgICAgICAgDQogICAgICAgICAgICAgICAgICAgICAgICAgICAgIC AgICAgICAgICAgICAgICAgICAgICAgICAgICAgICAg ICAgICAgICAgICAgICAgICAgICAgICAgICAgICAgICAgICAgICAgDQogICAgICAgICAgICAgICAgICAg ICAgICAgICAgICAgICAgICAgICAgICAgICAgICAgICAgICAgICAgICAgICAgICAgICAgICAgICAgICAg ICAgICAgICAgICAgICAgICAgICAgDQogICAgICAgIC AgICAgICAgICAgICAgICAgICAgICAgICAgICAgICAgICAgICAgICAgICAgICAgICAgICAgICAgICAgIC AgICAgICAgICAgICAgICAgICAgICAgICAgICAgICAgDQogICAgICAgICAgICAgICAgICAgICAgICAgIC AgICAgICAgICAgICAgICAgICAgICAgICAgICAgICAg XAQeEGYxDKAyCNHqZGXpICLfAVNhZWMdXOMvCDUdVHVcNXWdFEGmXYOtUWa7X0ftKLZiNUKzCE3nGXt2 Jz8+OExDSuBmCWE0onGgiM1LEB7ti9LyNGljQRLcf6QxGQs8ZZ1HZBDuNCowBU6TNPtarw0VJRCbIUEz jMFIu4ycGyQaVXF0TPYuRpfoTB5WWIXwQ7dwjsLmLP QsBSWGNC5HIiNhK4OutF12FHUGWx4+GToskvYtNgtVFyQsAXDtm6VnVWg0KG0RGIUcLutqr5XsBfSrAJ BLHQrxLM1VRIS8JCCxODTyDr5JAMYmU969glFmVK2ZTo2POgKbNN7nqz1BZwYzQXBiXhuBVlz8GUskXP 2AcKNhSGmIUNOzJNUeAJ5rZcnsOwTcagbmTZcgRNqf ENRIUYP8PWFvDd3nEXQcWOVcNhE7XQZESO1DWOFxXXRiuJGsOBHqUDYNEY4UNFdhNKX9LmvjnjQaaSWl SKlxPC5DOKEjmhQgBaXlGWZOZFb+Lj3ZMN6xx2TaZGliRCWvZR0axj4YVIcUCvPhI9C3nAHfP4V4YNmj Em7RBCXsXQDmZmAyWHQOTRfsLJ3BTR6yrrZ5HQ9JjY AnYCQvZYMfuJMiSKv3C33idFAzNCyxQY8QFHI+Nacho+Ph9IGISxNIOcLONyWlVsOYTJFkRlM4JnC5GNj6 IuW7CyOW14uJcwkoFbZIgmAW0QXU9uICNxSAWCRE1AgYWywB4kxfLfBgCqTIWVZyQeO32thMFpZYJfHJ HqHRGpIp8BJGGdI6ZdwkNecWdgfiQhIWBtVJMSTX2Z DIezgjAseFGxdGnaOH69cJknFE1KId4AViXqWZ5npo4BkPWqKx3HWIEaOL2IEAArHIWtEUKjHCI3UUXt UgWrMDdlQDHgFBYnRUN2QOEtWSHjJI0DRmUpTXAgTWn5PXBiODZuFDZjdi0TYLEgHGQwWMH0RvFbTVXb YNFwJYmhJVKdMOKqNJP1CZTuUNZfWH4FFqTxWYTvSB EwINSsWUJmHPOkfy1FWTTpZCZcNAO8CHRgIUIeANUuETjkWHOqXNLxUbU0EHGkUFLhDL1BYuDyJEDjES O2HJpuGDWzALCqws4JDEWfKTTxMjgsCiSfDNMcCKBcBYivBQCsLFBtYfahVRDcZCUaEQ6NExSbWSMnYL X3DDdfWGMsPMIizq9XYBJpMRSkIAX7QHHjLCXmUJMk RWucYSJaYZC3XXKzJNNoPYSqZZ8XDeJcXZDtMZO8BvQwFSAqLYOauu1BZEMuXCOySjr4VRCeOQOpAHGs TFwdGTPvLST0ICj4EEVjQTDxFI1IBlJoTNLnKDewLhKuVGGbQRNirn2KVYLoSEAnPMM1UbFtPWZnVADf NMalVTWaUVD5WEL5UJCuCEGvUZ9HYzGfUFCnYPd9Gs KfPJKpSAQotk2RFCFjISHgOVK0ToQkIZBgNTCdXBazQUAgWYHdMBg4WJQjQEOjXB0WWyHiCQPiHtK4OK ClJIVjKBPzlb4TSZVsECExKFJ6JfUxAJIePSFgDJt6ezQvfNEzSKr9RN4TB0HehnSmRpTAVp9Gg131DP W1FKEiDy0WX4gvTs7yBYXuTPEKLq9XZYs2LYj5VOWq ThC0ExQhVDI8WtQ3IsSqIoFoLbglJfNtDPK+BZj5FCM7HsSdUbu1XIEpXpp7GLJjLtD3K0R3CcWwQTV0 Ui2lBCMTXs8+DRucvLElaPjuBRTPLuQcACTfMTbeNXHBZx9X ID Date Data Source [id number] 05/11/2019 12:55:38 AM EST [facility] Name Value Range Interpretation Code Description Data Milena rce(s) Supporting Document(s) Nursing Note [facility] KGOWFz3xTrECFbEp85/VXXaoNHUmm8VuPIuuAPl8HLhmGOCyI1AnQFD4wV2eFCY1GZiEAcEkZmNkVtT5 lbm [file] AgICAgICAgICAgICAgICAgICAgICAgICAgICAgICAgICAgICAgICAgICAgICAgICAgICAgICAgICAgIC AgICAgICAgICAgICAgICAgICAgDQogICAgICAgICAg ICAgICAgICAgICAgICAgICAgICAgICAgICAgICAgICAgICAgICAgICAgICAgICAgICAgICAgICAgICAg ICAgICAgICAgICAgICAgICAgICAgICAgICAgICAgDQogICAgICAgICAgICAgICAgICAgICAgICAgICAg ICAgICAgICAgICAgICAgICAgICAgICAgICAgICAgIC AgICAgICAgICAgICAgICAgICAgICAgICAgICAgICAgICAgICAgICAgDQogICAgICAgICAgICAgICAgIC AgICAgICAgICAgICAgICAgICAgICAgICAgICAgICAgICAgICAgICAgICAgICAgICAgICAgICAgICAgIC AgICAgICAgICAgICAgICAgICAgICAgDQogICAgICAg ICAgICAgICAgICAgICAgICAgICAgICAgICAgICAgICAgICAgICAgICAgICAgICAgICAgICAgICAgICAg ICAgICAgICAgICAgICAgICAgICAgICAgICAgICAgICAgDQogICAgICAgICAgICAgICAgICAgICAgICAg ICAgICAgICAgICAgICAgICAgICAgICAgICAgICAgIC AgICAgICAgICAgICAgICAgICAgICAgICAgICAgICAgICAgICAgICAgICAgDQogICAgICAgICAgICAgIC AgICAgICAgICAgICAgICAgICAgICAgICAgICAgICAgICAgICAgICAgICAgICAgICAgICAgICAgICAgIC AgICAgICAgICAgICAgICAgICAgICAgICAgDQogICAg ICAgICAgICAgICAgICAgICAgICAgICAgICAgICAgICAgICAgICAgICAgICAgICAgICAgICAgICAgICAg ICAgICAgICAgICAgICAgICAgICAgICAgICAgICAgICAgICAgDQogICAgICAgICAgICAgICAgICAgICAg ICAgICAgICAgICAgICAgICAgICAgICAgICAgICAgIC AgICAgICAgICAgICAgICAgICAgICAgICAgICAgICAgICAgICAgICAgICAgICAgDQogICAgICAgICAgIC AgICAgICAgICAgICAgICAgICAgICAgICAgICAgICAgICAgICAgICAgICAgICAgICAgICAgICAgICAgIC AgICAgICAgICAgICAgICAgICAgICAgICAgICAgDQo8 X0lrAVIrVRUgVB8tWKw7Ma6+EVtKUeUrKED0vvBexA1QVI9gr0MnLXpcPQXkc9QbCIt0QB8FBBUtVTwo BL7HRNsjhq3CSSUyJUVoiDZKl9jdVqGgIMM1WTZrQjxhDE2DYATeC2wndeHvZYKvAQDZFN9LLoUvE4Pg uG86QXVFLy0+GWhejyIdZjqJBtIcIXCok8EuDCe1ZZ 3RRRLoSogcz0JbIwNzXECXJHnrBX0RLZX4HXEuISHwLl0CSVMtY125xcEqJV7AMl4RZmOsWG2ymi3FIb ZrMZFjQabVLjc0DJpfAT0KkDEtPXrCdBNpmD3uWC0yiGRnHidgKdMyOCXfDytsr1DlHKJJDAW7OIFeJq 0eIVWfNQDlDvC5KOJFVF5PPNFaPYOqfBFeWLPbYSSS JC1OJRvzABY1FzgyylMzuAXqNXpcVF4WTETudlYoRuSpTLVQQKr+As0SMJ7sm3MbVZabDBUxOC7elt6O EJcCAtKaF9K4qZAlG7D1EJrcDz1BDJRxIYUvQuPkSUKDOAiuMV2SCU9kjsY0UV9SvSTkXMDxVSXhyZIf WRy1Y85rvRAyAFaoPQ7BJDT+Nacho+Fm4NEMVaZMZuKL IuOmGkJZUZKzOyK8DsN6YZb8GzG7EqFJ38bCdlnjUcCOsvOF1KCF9sTWFhERVFWX4HeOVphM8ifjNeFz TpCTOTVxRnM86fuPCdETKrHPGuZWFlHa9BQFGsF6WrqyDqmTteweZvTOYpWJYZZP5ZGZnbrnYbcIKbhN ibVN30sDkiMW0BFu6DCnJtLO7ngo3JqKAsGb2OXHWt PD7QEZVuUBWqLJIwSTF0QPIkPmPkAZmuKYSlMJSvBBC8YIAsAILxTP5OQoDnIXEoLBc4YBkhNBUqTLJl kj4IXFRsECOnPBW1NeZyCBTwACRfQLvjJVIoNYOdLHB8OCFuVKTnFY5XGhGrCVJqADQeRMJuFHCoBFEx ea7VMVRsIJCqKNN3IGVtRQWyXCTkEVtfNSBhCZJfVg RzZIEqNHDcHB4KNzIeGBSaQFQ3ZDWpVCBtUYRlnw0ZEGBfGDKcDiP8BXPgIQStPGNuRDxfLZNkGKLfTc P4RDHzUUQqHS9JQxLzKGRpPVG1XXOgKYVjACBnzl8CZUKhZTKjHRSzHnIbWPHyGAOcLBjuECUiFXW3Be y8DFLwDHEaAH3KRdSuYKXhIJG4NDBzLNYdMLIutu8O JJIuWWChTklgDPRwBGIeAXTmPIksUZEyIGH1NBGoJCMfIUZqVZ6VRyKkKBKbLRatTXTsGOWbSNIbdt6D DDTnQVTgTSSrKGEzDHCwRNHbQUvdFLWhXQY2SMIoKAQvDVYmYC4DIvBiIXXuOCt1DMSiEMKvKMXrqs7S MDAwMDAxOTAwMiAwMDAwMCBuDQowMDAwMDIwNDQwID SpSSAtBG7GGsQbKXDoVpJ2QIEjHHSyBBYraz2ADETgLKXlYAM3RLTaKMVrRBPfYIi3fiAvsHHuMLv8KL 6TR3QwrzKhRgOROe6Lx941LEN4MZKzZv6SR1akVx8oHGPlPGMDDq5HCCg8KWNaEKLpEGA4BAL8TKM5KW D0BgGtOfAjFqSaOdXmOQX+SMo7FrSsWyS0UGo7IvQ9 NFn9LNgqHQL7WmQmAUS2MjY1Uh9eSIRDTe4+XQvuoQMnbOkoZCFLClDeRDi1HGvzQQUDKi3H ID Date Data Source [id number] 05/10/2019 04:23:58 PM EST [facility] Name Value Range Interpretation Code Description Data Milena rce(s) Supporting Document(s) Nursing Note [facility] MKYKDd7qJnNROaJj85/TOEcsDSHbv1QzGJmkADv2UMhdQGUyM5IgMJR4uI7lLCK8VNoWDxFpNxZgGjO7 lbm [file] XHXiYHMwEDo7SNYjXBRqXQOxHjTcLZNgFPH5IkDs BH5UNe0QNlB3FQK2nJTwEj1OPyKxYiVASaJlHT1WFIe= ID Date Data Source [id number] 05/10/2019 02:25:08 PM EST [facility] Name Value Range Interpretation Code Description Data Milena rce(s) Supporting Document(s) Progress Notes [facility] QJWZWw7wMrSFEfNi19/SRCvxTBDnf1JrEGqeQVo0GZnyMNLuL3JwGHN8fE0dICH5OHeEIzEfXsMoJtN6 lbm [file] NrC/8kn3mkchs3ZWNMH+347FvE+HClNvp9EG5qsGeh0mP4OZFjaxpUvPohxKNqZSwKvvCRf/EtR5z/rodríguez [file] ICAgICAgICAgICAgICAgICAgICAgICAgICAgICAgIC AgICAgICAgICAgICAgICAgICAgICAgICAgICAgICAgDQogICAgICAgICAgICAgICAgICAgICAgICAgIC AgICAgICAgICAgICAgICAgICAgICAgICAgICAgICAgICAgICAgICAgICAgICAgICAgICAgICAgICAgIC AgICAgICAgICAgICAgDQogICAgICAgICAgICAgICAg ICAgICAgICAgICAgICAgICAgICAgICAgICAgICAgICAgICAgICAgICAgICAgICAgICAgICAgICAgICAg ICAgICAgICAgICAgICAgICAgICAgICAgDQogICAgICAgICAgICAgICAgICAgICAgICAgICAgICAgICAg ICAgICAgICAgICAgICAgICAgICAgICAgICAgICAgIC AgICAgICAgICAgICAgICAgICAgICAgICAgICAgICAgICAgDQogICAgICAgICAgICAgICAgICAgICAgIC AgICAgICAgICAgICAgICAgICAgICAgICAgICAgICAgICAgICAgICAgICAgICAgICAgICAgICAgICAgIC AgICAgICAgICAgICAgICAgDQogICAgICAgICAgICAg ICAgICAgICAgICAgICAgICAgICAgICAgICAgICAgICAgICAgICAgICAgICAgICAgICAgICAgICAgICAg ICAgICAgICAgICAgICAgICAgICAgICAgICAgDQogICAgICAgICAgICAgICAgICAgICAgICAgICAgICAg ICAgICAgICAgICAgICAgICAgICAgICAgICAgICAgIC AgICAgICAgICAgICAgICAgICAgICAgICAgICAgICAgICAgICAgDQogICAgICAgICAgICAgICAgICAgIC AgICAgICAgICAgICAgICAgICAgICAgICAgICAgICAgICAgICAgICAgICAgICAgICAgICAgICAgICAgIC AgICAgICAgICAgICAgICAgICAgDQogICAgICAgICAg ICAgICAgICAgICAgICAgICAgICAgICAgICAgICAgICAgICAgICAgICAgICAgICAgICAgICAgICAgICAg ICAgICAgICAgICAgICAgICAgICAgICAgICAgICAgDQogICAgICAgICAgICAgICAgICAgICAgICAgICAg ICAgICAgICAgICAgICAgICAgICAgICAgICAgICAgIC YiYRXvSMPlFFNyLVFpRIZbMLNhNQOcEOCdZXCoJAWgUFDsPGHiIVJpNGz6Q4urRUMaEDJwSE2xCGt1Iq 8+EYnJBdMaOUK4pdIhrC9IEL1rb3WtGGzcGQKld2SmBGk1HI8NWWLiSLgpOC9CVEmmbl1VZSRsZLKvvT PRl7jxBxCyFOZ9AEWgRyqbYU7JYHZfN0grouAfBWEk VONGOOeiYZTOABfsQIPWSG8WWzWwH3BbqS71OHHTLq2+OVxpseOkJvrLPtC3NYXbt3PgADq9YW3PNGSq Zocgp2ClRHXiQRMBNYigDA0CGKQ9SJE6QYSoPt6IHINcZ324ymBmGB9XIr9WUcDxBP1kpw2HEQZbGWNa GmbYMqt1HGmrFX2JfZJqMJhUji5poaVxksDHw7Plri YxwPFYUBS9kVIcPITcpItujgHcCYIRJVS4AKDlFh1vMQMfMNJiYgW8HTJMNQ9QXDFoILJlrOSgYJKxFQ KQGT2XHSsbOZD3GtjgunZdoDOrEWhlKG0NIXYejiDfETJhBPPILXa+Io0KKW2fa3EzCUf3RtOfMC8ggy 8PNXzGXpNsB6C2vAPzJ5W2SHkiHo1RKGJyRRGvNBZl XBLUSEswBF2OFM2hkxK6VE2HqSNzDIYsGRDkcEGcFHi2X69ykDOeUJrvEL0YFLM+Nacho+Ei8FMEXwHOHl AQAgPwEwSDSXNjVwH2NlF5WGt8PuI4DzRP51gOabmiQmIZquTK4MDP3rUAFiHNSGDY4VkYLcmW0xbcW7 FHZjUNMKGlMkM70ftLCmMXJxDCE1UAIwSj4DTMKmX0 UxhdGpgZffaaVaGKZcDWMWFL9YUTaeeiIhhHYziYnfIG13jXgzJM9UBq8MNvEwNO4fnt5NiMWtDh3IVS Z3DR0NLHKsRMEnEJJxIFM3BAGcHkFwVZogFDIiHJCnJCD7BROoJWSyZD4GCbLoMDVyFPfrBcScIONeYG Xohk5XWPByEBR2DKozSzUxHZPxRQXpWLemNPWlAJTd FTB3IKYeHLMhPJ0KTdElSXAvEPB7LFspPGWzXKLxbl5NRVBgLJMvPlIpKwVmUSDcZCPaGDcoBOXrJAJ4 KKO4DAYrAFKnFZ1OPzTjPPLoMRF1XCUzWPAxLPFore5JSBFeTPCiIdRmZeJaXOYvFQHbXCviCHPmTKT1 EOFcHIIyEHZvVO8QHqXbWROwXGf8HpysXMUcNMVgyu 3VENTsVOOfDLl4ZOXvPWIrKWFrUDogQSVtFVG5RWY7YLAjXINsTZ5OGgUwAWGyKJQlHDinHTUyDDObol 5VKCTfHCOcWQVcRaZzQUVgOQRpAGulPETtFEHaQBp1NZCsGPZxJF5BKfBvJWNnJxX0DLlfLQFzJJKfdy 4AMGUmPFQzQuB1JLJzQJXgPSGrXJycWLQlARJlKunf ITNeBOFzCE9UZsEsTQPuPcO9XHCxNCRxBZYewt5IRHDvUBFsUdy4OAHbUOHtDDKyHAssLBPeQIS1SyZl FPXeEVDjKS2BOvDpGGJqGyY6USTjTNBiNZBiao1NYDEcJPEzXXF5QUTzNNHxGINiTDpyBRSkJVA3OLYp AIZpBHWsJQ0XRbIrFVEbIdZpLBvzRKWsEPEndn7ASD DoHDInPsV0UDJpQXArPAQiZOaoAFYlKPJ7ApHyZQYcOUTfZZ3UAsDqQBOpIcu7ONgaEQZvSQTiyg4GBG DaGBKiWhU6NDQxPQMqEMOzMLcwVTXsMIEmTAZ8WCOhJVJkRR5EQeNqXNJeFtZ7FVIwBMPrWZJeqi9YBW ClHPZqZbZ5SpZlAQXzIBRnSHhiOVHdWJBxNlw4PWEa WZBjLN5VWnUmAJVdRaW2RXKgBBGnJLOqvu5WYAOnUOWbKXI9WcYcWCTtPEZcYHnmSNOpGIA2WSm0CFVt QKWsAH4TSlEjBYGfWxW1KWbdETLaVAVvrr5YANFyHMS2KPL4ZQQsBBHaOAUcPEvjGRHcTAR5Krn0WSAa JRYqON2CWcUfNDTcRRj5LNKjCJLcTRPnsh6RRPAmUN Y4CBi7TbBhZQWdUPRnNRnxLJGwFGO1SFBcJARgPMCbHT7COaBdECZbNLv4IDqwCGSkBDKnpn5BUAAyRD I6IPs0MlMnHZXyIEDfYTkoTRLwOGGqGBY8VGHnSYBpFT1AYyAmKLLhDFFxTgyvKIPvCHBuun9LjYLnuG wnap5CRCfNHp4XdEphBLY0QScuEk1jnGX6FlXbOLKH Wh7CnjRxAEOlPIQIBNczRUAjAFT7IjJcIoNhTHHjDAhpRKN0JKJ4ExQgBGZySeWjC2GjYfI7TjehPzV7 KZSpV7HrEFP3GYojXPrmUkY3DOLbApVyZuI+IR4qALe+Ub3Ff6JcjpR6uvDzZBi2ISElML0KLXHJB2PX Cg== ID Date Data Source [id number] 05/10/2019 01:11:17 PM EST [facility] Name Value Range Interpretation Code Description Data Milena rce(s) Supporting Document(s) Care Plan [facility] QRICCc2jLaIJJhFl98/PQVuhTGHbs5RcUSegOMi4YUzvNJZhB9MvTXU8qF3nJGP3BPiERgLgYtKtNnC0 lbm [file] ArIaZzDUB2YeX5VnU3RhObSB8YHs3DVdG5IQQ5fUSdRr9CCtT0HxWGVhExMW0SSDf= ID Date Data Source [id number] 05/10/2019 12:32:52 PM EST [facility] Name Value Range Interpretation Code Description Data Milena rce(s) Supporting Document(s) H&P [facility] EKVDZq2iIkYTKnHs60/GUHkeRBCwg6FhBRrpLDd1UKhvHPWpT3ZjUYK2hN8jALD7NQrWLgTvIvBtUoZ9 lbm [file] ICAgICAgICAgICAgICAgICAgICAgICAgICAgICAgIC YfCWLrLZBqRQJrNNFfNZQuDHVuKU1MCYJsEDXbTTDvIBRjHIZnXVUlYSPfQLCrIWJmZGRjOXOtFHYpMA AgICAgICAgICAgICAgICAgICAgICAgICAgICAgICAgICAgICAgICAgICAgICAgICAgICAgICAgICAgIC BkQA9XMKNpICJzYRNaGFSbXHEqHTWfWDLjJZAoKPHq ICAgICAgICAgICAgICAgICAgICAgICAgICAgICAgICAgICAgICAgICAgICAgICAgICAgICAgICAgICAg QQKwEPXkOWZsZNAnPK4JUBJcKKEcTMBwXAPxSPLwCWAmCWDpUUInKXRzMKWbCSQdKWJfGTYjDCNiCEQn ICAgICAgICAgICAgICAgICAgICAgICAgICAgICAgIC KoTBTjMUQpZIFxCITcORJtLPShYUNsMH3DCFWzNTAoGCOkWGPeQMLgRBWkGVDhAJPtXNOjNOHeZSDgUS AgICAgICAgICAgICAgICAgICAgICAgICAgICAgICAgICAgICAgICAgICAgICAgICAgICAgICAgICAgIC AyJEPcMN1OUGAmXUNyARXlNTScWCAsIPTuHDGgQLTl ICAgICAgICAgICAgICAgICAgICAgICAgICAgICAgICAgICAgICAgICAgICAgICAgICAgICAgICAgICAg VZEdHWLzWJSuLSXaBLDdPU8IHSVkUMZcDHFxNJVgUBUnHAFqKGSrRYByXSOaNURyVQEgOANkVEVmJBVw ICAgICAgICAgICAgICAgICAgICAgICAgICAgICAgIC MwBIDaSTUgYKVnKQIpDTEqUKOkJPSwDREiNY1JKTMqMNYdZDCwYPNhPVHuHSUfJVNbTGMsFOGzVQYsYB AgICAgICAgICAgICAgICAgICAgICAgICAgICAgICAgICAgICAgICAgICAgICAgICAgICAgICAgICAgIC QvZRDaLSVqTT9OQXMwETSnJSQmSZFdILKmHEHkVUPt ICAgICAgICAgICAgICAgICAgICAgICAgICAgICAgICAgICAgICAgICAgICAgICAgICAgICAgICAgICAg YOHvUTOgRRNnCWPoIDBwFTEjVF4VFNJzKTIaNZAiDOOfNLLjXVWqVNIkFFFcWFSsKXLaRKLuYLVkRASc ICAgICAgICAgICAgICAgICAgICAgICAgICAgICAgIC HkXHSdXBSaDEBdVYHhNCMoHDQcRJGzNVWxZNIyEZ6VVO94vLJry0D2FMPzUD9rvfb/Zl4QMOhkwuEaoB NhRV5CHuOeUK4twa9XIdWxSY0xrc7JJDpWEqKnB3Y7dGFhMZAnYJPAZpSpB05yZWjoQx69URzbWUUbPl KiBLv1Ke1QMvNyH6lbCZXxWiG5QHOkJwGlWMxcGT6B r6JxjSYhPDq+Gv1HCB7jk3EqAYwsBrUtSY5dih3AYDcNGwVmE3GgstD1LCB1HUSpAo9XADVpZIZyyJRg KCXbURXJLwHuO2JbuL64NTQQRu5+ORqibrSjHpxWOqP9CYEfn1FePWz2BW2YRJLeUPs6dLYfBXLCKCW3 IQIezGZezQGPIMQ1dM0eXTdwztZjPD2EBNQ7NKDoTz 2vBKKjZQReEzCqHFJSAP0EQXShPNEriELoNJBcVTIYBT9WEXaxGQU6SbookmXklTNtQMfuMP5MHGNcky QgMTcgMCBSDQo+Lk5RCB7yy7UqYNooUSOxUE2xuy8AUVsQJgKyZ8A6vEZzB0C8XJgqCe8BVYIyKQBrFD TsKPEHVEmlWJ4JIO4ajjC1KO4BiYFbAJGoPXVsaWWn PQt3O47liSEsEVenUC6JGJW+Nacho+Qi2URWWaCDVyIMPuYzZtWMNRAtCuR4JdI5DRf4BlT9UwDP10uQjs jxJxJDmeHN9LPH5aNWHzIYGAUH6OzSZbxN9xsuVxPgMaKVGHCzSuP07bsRTqRFGyBEW1CTBlJr8SAVNr X7ZapjBeoGceqsKdSXCcCLZKTK0VUSywiuPgbKDwqN pqGV44bEozQF7GNs6ELtQlEN3mdo5YnPDqEc9QEFBaDP1PQGQtMRGnSFMaDWE9FBAiUtCaXEbrTPTwAF DkNIZ1EWOxJWBhUN5PVpImCQWwWZW8ZtAwUBRaAPPzjq9HLEWkNAQsAIsoYDRkLZYeEKRiDTbjORQbZA JuDEH2UFOpEUJzPH2GIuNdQDXxPCS7ANdhNEEtREPv pt4BZEDlUVMfKvowQQBfMZXoBMEdOYopEBAxDJRnXPw2PXZqIHTwRR6KIvMtLCYoADCiQTAtWJEkZZFa gc5CLOLfGHQpPPU8DKQpMAXdFSCuMEscDBKcJDU7CjU7YABqBXDxLQ7BZuGtFKNhZXW3TvCiJAIdGDGq gx0CPLVfIWAtINOpMwYvVESbEDCzGIxxCGEzVLR3YB JdZCAdSFQuYO6PNfBiUVCsFGJ2BeClNLEeDUScef4BXUTwTVThIvm2SzBxEALlMHSrVGhlDZQaZMM6Bt X9CFYhJDEnLW7OCzZtCBMmSKj6KVyiSIAsAQIpmd2TGAHgEDUhUWy5ZXDbXHVeWAKwTYmdJTIfZZU2SI IjPQZvKRSjPX0AEuTlYNqzEIGYAmj1ISimS8s5KEOv UH3TU5Xoc3JeYBynBZTPKArbMY9khvSrHWZsUe7GX3fWDpuwAMIuP0MlKLsvJBv7NNXkDzTtGDErNMOb JKQfKnOqUI4lEYJ0MmFaIwZ7ZIXmLpU8VaF8WiM2PeH4NvT7KrNkLMD7LtCdMK6USw5UWfG0AWT1qQIu Hx8GDYW6TT5PDRKQN1JWUy== ID Date Data Source [id number] 05/10/2019 11:54:35 AM EST [facility] Name Value Range Interpretation Code Description Data Milena rce(s) Supporting Document(s) Consults [facility] QYFOUs7zLmCWEmIq63/OCUtcBOBxd8WqBNrlRCq1NIzdTSCnS8WsKBO4nS5ySDX2YTxWXaCeJePuAuV9 lbm [file] RODRÍGUEZ/27nPU3bBEhstmY4i5Lx+6fdvgdi3PBW+u1muB8Q5Rmdsna++R/Pl1JnZbdwHcjBCy26kkgz65IKrz 5L14oyP+DJeqoTen2uCpk028eOzjWD26pObA0/pP8cs0Ek8LZp+UwUI3l5CYfcuz8US0oGqn1O6v7WPs Jsp1ybJ4Du4gQMeyoPp5cq4+P3kVlpuTX97j869ueo pX8af1ckb2XaugGQpno5Y13ru8EKG+ruE9qGx8jWTwiDk5XgqmTprAyz5H1nNvltsE5vHBt+YP/ZgfqB DB2iaKcNCQSPBzJe2EoEIteJxrhdW+1CctL+AIj90whPM8SLM3RDfWKdlNMGdoKchQJShrWhjEdDo9ZT Fh843FTgNEFCHVRmPDBcSSBodSf47iT0HwLMkoWPcF 5XBdeNmkz7Xo59AjaiNLZhyNqKkx45Mnu/dPKdwFM/8lIfZp2W8cQHI9pJJav5dcJQ4Umc2xjxxMAeYr +cU/wYeh80/E74VwgIoo01mm+mtbdJkHT53NTYUPJVYima2xVnpt1QL3oes91GEWw+kiuJa0rDMkSUJw h/PsTwFPSoriaVlJ+xXP/paVzBMapFiSksDSLkmxCO [file] DA SILVA/4LCLh17Qh1wFy4eMzIW9zRGrwJ83oU+1t9XpSlN 3ZyNQlf/JR7T3zH1iRDB5IHOvxmMyyyvK9am+Ld7LZB638e5FWsNCh5rv5ADfCQa/Fk+sJbzG4mlU3GT 67ZGHFRRcumH/BvLlzZs+aOWN6+qPsWglYAAqpQfGfTAyoiuYT5T+vb5/eZ/OI1VuywQg7uwduQgcjjG rSIdA+8x7i3eLlwI8crXMk80m7k8jMU2K6NaPJ6SIu f2ecopXGCJpYK+bQcJrL0BGYxRCx8G4cRFKYWMMvwW+k8TM5Yc2givH/bZAHtbcNmFChR3nGAQA4H1gk t67+Pilar/2Cv6yM2zNr1zqVbairHGU/oTaLvo7k2L5JKq3OKc4GyxtTr7n2McKnnHu5rAwlvbjIIP4Pu4 [file] AtG2HMxpByKuSzOuDK0BLl4GFqD3DTM2tMRhGl5ASnN7TBfHUdCsWW5BTGh= ID Date Data Source [id number] 05/10/2019 11:17:41 AM EST [facility] Name Value Range Interpretation Code Description Data Milena rce(s) Supporting Document(s) Nursing Note [facility] CXLXYg1xWxSOIdOc78/ZACjvQDPfx8HxPXjiFAz5VYacZXFlM0YvFIT5eE9fDEL7KUtOWoTkUfLvGfC8 lbm [file] ICAgICAgICAgICAgICAgICAgICAgICAgICAgICAgIC AgICAgICAgICAgICAgICAgICAgICAgICAgICAgICAgICAgICAgICAgICAgICAgICAgICANCiAgICAgIC AgICAgICAgICAgICAgICAgICAgICAgICAgICAgICAgICAgICAgICAgICAgICAgICAgICAgICAgICAgIC AgICAgICAgICAgICAgICAgICAgICAgICAgICAgICAg ICANCiAgICAgICAgICAgICAgICAgICAgICAgICAgICAgICAgICAgICAgICAgICAgICAgICAgICAgICAg ICAgICAgICAgICAgICAgICAgICAgICAgICAgICAgICAgICAgICAgICAgICANCiAgICAgICAgICAgICAg ICAgICAgICAgICAgICAgICAgICAgICAgICAgICAgIC AgICAgICAgICAgICAgICAgICAgICAgICAgICAgICAgICAgICAgICAgICAgICAgICAgICAgICANCiAgIC AgICAgICAgICAgICAgICAgICAgICAgICAgICAgICAgICAgICAgICAgICAgICAgICAgICAgICAgICAgIC AgICAgICAgICAgICAgICAgICAgICAgICAgICAgICAg ICAgICANCiAgICAgICAgICAgICAgICAgICAgICAgICAgICAgICAgICAgICAgICAgICAgICAgICAgICAg ICAgICAgICAgICAgICAgICAgICAgICAgICAgICAgICAgICAgICAgICAgICAgICANCiAgICAgICAgICAg ICAgICAgICAgICAgICAgICAgICAgICAgICAgICAgIC AgICAgICAgICAgICAgICAgICAgICAgICAgICAgICAgICAgICAgICAgICAgICAgICAgICAgICAgICANCi AgICAgICAgICAgICAgICAgICAgICAgICAgICAgICAgICAgICAgICAgICAgICAgICAgICAgICAgICAgIC AgICAgICAgICAgICAgICAgICAgICAgICAgICAgICAg ICAgICAgICANCiAgICAgICAgICAgICAgICAgICAgICAgICAgICAgICAgICAgICAgICAgICAgICAgICAg ICAgICAgICAgICAgICAgICAgICAgICAgICAgICAgICAgICAgICAgICAgICAgICAgICANCiAgICAgICAg ICAgICAgICAgICAgICAgICAgICAgICAgICAgICAgIC AgICAgICAgICAgICAgICAgICAgICAgICAgICAgICAgICAgICAgICAgICAgICAgICAgICAgICAgICAgIC ANCjw/uHBoC8nbbIOfwsN2U3rnDp8DXu3CNP6cv6CjHRKmZPmkqmRjTfqCTnXpZWNdHniBHhy8UYsnSV 9UeFFzQ7RtH7ZbUWfgLT9KAFVbEOWwaUDlGAOxUBKh CaX1GRBiBOyoOY4NwXKxVJtsEMYpPRVrWQ4MFLJcX977ywKfBH8ILw3QNtQhEC2nwt2SUqIvKKFyVqiG Hiq0LNpbFI5JiPSheHYrMvYkYOVRYuTfC5bbf5VeWdMvVDEPHIqhPH1Oz6QqnLMjNLl+Ic4XXF6zq2Hd JSoaUcMkYW7wof7FHYgJQxSmQ4QymFxwOW68qlHxch kxIk15WNPyeCTFyu9qIWZfeUSxA853TOwil2haWGPJOBG1CBMpGp8kMJEpEGCoVsL3YBGQIA9UXGSnQK KkoXWgOEVcBRJIDR0VVTnjGDT8DbfhjkWyfOHdZDvfWU9CNOGtteJgQjGuPGKYAQz+Cq2VEQ0wg9AgHO qtWEVzWK7pzw2WSRdTBzAxT3G2lZUrY0K4RQqbPw7X USTkIGVbGjAgTDRZYOiqIJ4ZPF5xuhB2RC7XzGGuORUkENRraKOqQDl8G63ggFSaTTyyAM9HOOR+Nacho+ Ug8WRPFgCDHtNCPpMqDgZOEEMeZeF3NtJ4YPm0FiA4ZhAT35tUnazmFxKJqpYG8EFA4bEIUcWNOJFM4Q rJJvbR9qmpCxQmJuXYBTUzOsP98ulXGoLSNcCEEmEZ JcPo6NNYSyZ3MegdDpnPixbnDgKOCdHXRZAB6OMHoxrrCszNLzrXvpVA00kMlwIL2DDr2MTlWjPB6fsy 4KmTPtBs8RYTZvGE8QPPZeRYEiSBGnIAZ5FUXxMuDqQPkqFFFnFFMiKVO1XLVgDYCjLA2ZHrTrAEJdYR r4XqJqXNJwEVSrup2EOGCcDZHqDWK9KUXbVRBbSCKm OMjqQVGoHFXzWCF6RAWaXVEgMS1SIhTtGSBvUMOpTDOgTPUrJIWeyo2WOOCbHFBmIDC7FmBiGKQbHQVl AOicPFHjGHFxMwQ3LUEcIJChLB9TFzZcTMRkIDZ2YYXqWUFhKLCmtv5CYTPzIUAgNuGqSNNuSEDnFXVp YVpnJVSzEYKcSJH7JWJeGWMtOI0JAqEmGSYjGXU2UR SdSBWgZUItzm6YKLQdOCCeHiodFDBgEYRgCECrPCbvVYXjSYH8Tah1BTXkAYMiYZ8WToXaNPRiKHO6CW JoDNWgXVEryx7OWJLxIIKvAicoOdWkMULrPFItIAbhIRWdCOV4INXbCBDtXLStQW7BKyVgKMKzYAwbLU eeWHCmKSRnav2YSORoWVUnLPT0DLXnZZUwYBZvNInp HNZuVFO5CmN2LJNnBOXoBE2YNwFmWISoYSj0YHtcWOLpMMUcpk0HNCJeSGJqSZoaCSDcZTDaWEZoLCpp YQIzXGMtZrVqPWUzBOHzYA4CIjXeFNZzBsL9HsPeOQXqWFKiil6FTGTmHVOfAWL0PxEpZZJwDCXhDBd5 bjKsuHFnKDa7MG7KW4TzhuRlLxUIBs2Zp836LDO6JE FeGp0VH1xxZe3gQJZdYCCOHm4ZWIh3GDWcRWC6QQKmW8C2ZbTiJBE7GBsfX7XnMqr2IKTrTAH+IDxhY2 R0EDo3JoZiBip5LWIcJPTwTIOtPdLtDIV7QdXaIB0cOEEIEg1+ZCietWFwdRtgGRBTDtXtPVB6NVblCF VPRg0K ID Date Data Source [id number] 05/10/2019 05:55:44 AM EST [facility] Name Value Range Interpretation Code Description Data Milena rce(s) Supporting Document(s) Nursing Note [facility] PIAUOd3xUsACWmGk87/WDHpsXZBfw8YoGPolBYg6PEnvEBZuC9ZwDVO9hQ2uKPP4YKbJJbFlUyRfPlY4 lbm [file] RODRÍGUEZ/18gSH8tRDmfcjE7o9Wd+6ftgguh0HYJ+v7jwM6Q [file] AgICAgICAgICAgICAgICAgICAgICAgICAgICAgICAgICAgICAgICAgICAgICAgICAgICAgICAgICAgIC AgICAgICAgICAgICAgICAgICAgICAgICAgICAgDQogICAgICAgICAgICAgICAgICAgICAgICAgICAgIC AgICAgICAgICAgICAgICAgICAgICAgICAgICAgICAg ICAgICAgICAgICAgICAgICAgICAgICAgICAgICAgICAgICAgICAgDQogICAgICAgICAgICAgICAgICAg ICAgICAgICAgICAgICAgICAgICAgICAgICAgICAgICAgICAgICAgICAgICAgICAgICAgICAgICAgICAg ICAgICAgICAgICAgICAgICAgICAgDQogICAgICAgIC AgICAgICAgICAgICAgICAgICAgICAgICAgICAgICAgICAgICAgICAgICAgICAgICAgICAgICAgICAgIC AgICAgICAgICAgICAgICAgICAgICAgICAgICAgICAgDQogICAgICAgICAgICAgICAgICAgICAgICAgIC AgICAgICAgICAgICAgICAgICAgICAgICAgICAgICAg ICAgICAgICAgICAgICAgICAgICAgICAgICAgICAgICAgICAgICAgICAgDQogICAgICAgICAgICAgICAg ICAgICAgICAgICAgICAgICAgICAgICAgICAgICAgICAgICAgICAgICAgICAgICAgICAgICAgICAgICAg ICAgICAgICAgICAgICAgICAgICAgICAgDQogICAgIC AgICAgICAgICAgICAgICAgICAgICAgICAgICAgICAgICAgICAgICAgICAgICAgICAgICAgICAgICAgIC AgICAgICAgICAgICAgICAgICAgICAgICAgICAgICAgICAgDQogICAgICAgICAgICAgICAgICAgICAgIC AgICAgICAgICAgICAgICAgICAgICAgICAgICAgICAg ICAgICAgICAgICAgICAgICAgICAgICAgICAgICAgICAgICAgICAgICAgICAgDQogICAgICAgICAgICAg ICAgICAgICAgICAgICAgICAgICAgICAgICAgICAgICAgICAgICAgICAgICAgICAgICAgICAgICAgICAg ICAgICAgICAgICAgICAgICAgICAgICAgICAgDQogIC AgICAgICAgICAgICAgICAgICAgICAgICAgICAgICAgICAgICAgICAgICAgICAgICAgICAgICAgICAgIC McYOGrWPLqSLBrGCKvKQRjTTUfNDFnKBLjQTYaKYTwXYKyOCOmTEc7K1myQJUfGBGfJB8bCTd3Ul0+DQ bURqIkPWD5ndPntT3IXX8ka7QpKRpqUBHrq3XoRYf5 VU7CBGPtDYgnUS9KYLpvyj0MEUJnGSIdtKMUu4xcHeYvJYV6LLQfLstbBU7CDWIpZ6uzxlMzOSLbNKXR LB2CPcIfG9NvfF78VPIOBd3+ZLqomiJdAkaDGjPnFECpd9LgHBb3HL7EWTNgNpcid1ZtWgApHDTWQMpm XV9XHMT9NPIySQAmXr6WFIHaP148pzTrAB5TWi2KUa DhZT7hzd9QLlLvHDYlGlwUUdg3KZtvMF0MvIBkKCyUiTDpoZ0zCL7egQZaIfhwZdGdBVJjDvrsu0QmNW PSYMU5RREvLi6cAAEkPPO7YxE2TBBSKU6EWDQbMZXtbZJdKNMgGQICEL5NXHycJBO0BqsrrkOmqHFrUA kuSL1CQSEzrjDyZrSuGRCTMMb+Nj1YHR1gf6EeWKij NXXzSL3iqn2DYSjPJsMzW8K9zWFmQ5P3XBnuOr9EEUEzWCPqYbZyJMKURMbxTI3SUE5ygkG6MU4SlNGj EBApGMVdqJYxFQu5M13axDKrTQfeAI6RGUS+Nacho+Cm3IDVGcOHUsLAAfDjSqMNKKJjPcY2DtY9BCg0Vn O3MsGJ24vOrulvRzEDqjIT7VQS9zMWTuIMZLVK0WnW UyjI7qluKfPvCcUOFMKfZgP49naVKtLYEzHLCdVVOnTh5YBBLwK3JpngTguJgkemYdAGMmZSTQPA5CRZ tlqkJxsDYleHjuBX84lZwyNF8MYw3UTgPgNH6ius9CcNYkRh5HTHOmBI4DAQMrVYHhHTBtOSS6HGFdKi RvEYinGPRrEQQeTID3BYZhZMCvSM8UCpOaLMHtXAf6 JFjsVYMcNUTmjn4KHTXlJIIlLCN7LEJbJGJxQHVpAOaoTSXyTWWcWQK2RURcGZGvWP3QFuAqDDJfYRNu VKozILCkDWFwqj8VDSFbPIKvUGD1ShZsSDAtJSUmVKptJACrRQWpQnPiZYTcLEDsLP3GCvDiGLAaJDF6 FFJyKUTpXVMxmg8CSJRcMDEpPrDaElDjRYGsDDSpKK apPGVtRLBxQSf2MOYyQOEsYP5FGcUvNREmPQE0WOOdPCGnAJAkqu8MAIPuCHLoVjd2REFsNCRmNEKdQQ xiCYYhTET1IdF3HAMyIEGvFA8IBxCyLBOfLLG7UKVhHHScSJSjrw1CPUOfSNMdDdi0CEGrZTDeCWEwIF lkAJVoOUY5BPt0NMEaPRHgGC6SGdUiQAHrUSmkKoWm XVCvDONvht7YRBAlBYCqKZE3KoMwOFZaUTXoFUdpUMTeQOZ5HnBpRDMsHFWwLR2ICsBdGKXnVEm6WvHv NCIxJBEvxm6BZQPfFBWlQAj0SKNlLKRrWWOfHXzpOUFvZIOfJxv1CBRcXZZzUO9DAyTuDPDmZsS0ArNh LZZhIKSstj7URCVeDFSvUHSwMkEeEKJsYOKkFVo4bd GocBAyCBl3JP2LD8HcreRpXnTFOz7Lz613CJB6XOAnOh2CG9atBx7bXGVaEJYBOj5AQSd8WhnoL7SeFO KlIplbUxGiOnYqBKGkLdRyMIo5DekcMYE+QPwoUMPjCXRwAFUmIXV4CTEzCMTcUCI3HeT2ZIQ1GAQ5Qq 4tSDGIQn3+VDeziYIcmZeaKFQCZsOrXXH7OYulYJWAEl1A ID Date Data Source [id number] 05/10/2019 04:46:16 AM EST [facility] Name Value Range Interpretation Code Description Data Milena rce(s) Supporting Document(s) Nursing Note [facility] IWYIRz6iAnXZFjZp99/JAFdpOFNez7YhYQjtDNe4BHlzEHGgW8JsLZJ5cF7rCHC4DMlREfUlRgGsJpD3 lbm [file] RaPi5TMhS3VbMJRfOaGM9OSPn= ID Date Data Source [id number] 05/09/2019 08:51:14 PM EST [facility] Name Value Range Interpretation Code Description Data Milena rce(s) Supporting Document(s) Nursing Note [facility] YRUSYh3yGoAUTbMo90/UVZftZRDqn1LxJGhbMJk1DEsoPPIdG0SbMVG9sZ7qTQN2HJaGPcZfVbDwBfN6 lbm [file] oeOkVTvjHQL1YI0JIALKM7PNYy== ID Date Data Source [id number] 05/09/2019 05:24:05 PM EST [facility] Name Value Range Interpretation Code Description Data Milena rce(s) Supporting Document(s) ED Provider Notes [facility] XLNSQv2vXkUUAsVf82/VMUwoOCRgp0ZlBFniROm9THoqOTYaJ3VrMAH2hN9fIPM5XBpUWtIcFoYoFcG1 lbm [file] VJY0ZLspDTEUBw1H ID Date Data Source [id number] 05/09/2019 12:03:00 PM EST [facility] Name Value Range Interpretation Code Description Data Milena rce(s) Supporting Document(s) Amphetamines, Urine Negative Negative Normal (applies to non-nume courtney results) [facility] Barbituates, Urine Negative Negative Normal (applies to non-numer ic results) [facility] Benzodiazepines, Urine Negative Negative Normal (a pplies to non-numeric results) [facility] Cannabanoids, Urine Negative Negative Normal (applies to non-nume courtney results) [facility] Cocaine, Urine Negative Negative Normal (applies to non-numeric r esults) [facility] Opiates, Urine Negative Negative Normal (applies to non-numeric r esults) [facility] PCP, Urine Negative Negative Normal (applies to non-numeric resul ts) [facility] Methadone, Urine Negative Negative Normal (applies to non-numeric results) [facility] DrugMinimum Detection Threshold (Conc.)A [id number] ng/mLBarbiturates 200 ng/mLBenzodiazepines 200 ng/mLCannabinoids 50 ng/mLCocaine Metabolites 300 ng/mLOpiates 300 ng/mLPhencyclidine (PCP) 25 ng/mLMethadone 300 ng/mLOxycodone 100 ng/mLNOTE: Phentermine may interfere with the amphetamine analysis.NOTE: This urine drug analysis is a screening procedure. [facility] recommend[facility]ubmitting positive specimens to a reference laboratory forconfirmation. Oxycodone, Urine Negative Negative Normal (applies to non-numeric results) [facility] The above 9 analytes were performed by Esthela Linder [address],[id number][facility] [address] ID Date Data Source [id number] 05/09/2019 10:54:00 AM EST [facility] Name Value Range Interpretation Code Description Data Milena rce(s) Supporting Document(s) Urine Color Light-Yellow Light-Yellow,Yellow Normal (appl ies to non-numeric results) [facility] Urine Appearance CLEAR CLEAR Normal (applies to non-numeric results) [facility] Urine Specific [place] 1.016 1.015-1.025 Normal (a pplies to non-numeric results) [facility] Urine pH 7.5 5.0-7.0 Above high normal [facility] Urine Protein NEG NEG Normal (applies to non-numeric re sults) [facility] Urine Glucose NEG NEG Normal (applies to non-numeric re sults) [facility] Urine Ketone NEG NEG Normal (applies to non-numeric res ults) [facility] Urine Bilirubin NEG NEG Normal (applies to non-numeric results) [facility] Urine Blood NEG NEG Normal (applies to non-numeric resu lts) [facility] Urine Urobilinogen <2.0 <0.2,1.0,<2.0,0.2 Normal (crescencio lies to non-numeric results) [facility] Urine Leukocyte Esterase NEG NEG Normal (applies to non -numeric results) [facility] Urine Nitrite NEG NEG Normal (applies to non-numeric re sults) [facility] The above 12 analytes were performed by [facility] [address],[facility] [id number],[place] [address] ID Date Data Source [id number] 05/09/2019 10:37:17 AM EST [facility] Name Value Range Interpretation Code Description Data Milena rce(s) Supporting Document(s) ED Triage Notes [facility] RGAAJg1hQiOPNkOz34/CKBdwHWEow7TvWMdeKHm0BXfcBKPlW2PeVGT0sY8nMWT1ZKePZnZbMkMnCsE8 lbm YbSwoKUjOeBPFwHrjDSzNzIAhzNlkirRPsDN9CmAO1ZKBqM33xIGCpMXFvO2CaMAOrDaO+Me7KVNWcsX PzWD7FZifV5VjCgyn8ZT3g7N+WMmecQuc6PFv5Xc5DErSgBPz72boyE12eb40Zpwy2+7DOntRa1B7cZ8 6LJgdrQHJm+GbecCibyP/6CLi8mqBz+n/zmBeaLm/o yR/NCCH5Z290NVChqHNW6M0D9WxU/k06CBdxX/JAJujqFkeYgsSvBrAroCEytCRBw0Qsv8ix1RijpgMm TobQmyWDbDL1tjQGXPijm3FfTde2nWrEQ38T+HQpiyK4XcXuF8gjB6YmqufEfz9Oax+LqOhzP77s4gBm xzRadJSSm3Tf2D082BYZvqdqt2URcxSuZ2ijvnvfqY 49i4dNH5ymEjXZWL/9bY3yUH0ShAc7zKt+YPpRhiVDe5LBNsbTmQfzoPnHQRfJlGNZgvU7gn3f0wyw6S 6SBdXf65hW73Z6Yj/Af7Asf1VaDdetYnnaNBRFpIDT5PdZ9QLJkbfQ4MBjOeTzLS0ov2kpp/VukiLJOw UIHW3y7zS4JdonmEBKh7L7xPYrzkUOXOJ2s1Vqe7Ew YoJ1WX4dEMO0tjHx/pOwLyOkiwGK9KVh/lJ4gmYAeapk5wXRqCN4iOimz12wi0zp6M3WuJjDHQGpvTyv BuVBMcpNZ+YPPSnDaHzkcE6zz+GvfndPHlXJ5SlxoWyZm/W1P820Ik+0xqkyF8YK59PF8h1NQOHZdxI4 pNbTTgnJIrxhJUl4QzBBgDifBDkg11YBISlWw1zNg/ Cd1KV1WLcdWYzBT45nS4ftV3CGoLxBUdCaeJlpIaMza9Z/05Z+pHy4C0cZrlItzcG8hKqD1NlEJgdwcz v0qMz4wZn2sFblBLNvcRlH+g7bj3KRuc+EP4RAZfIAc6aCjl9vzMBe2tbGTVYNgLV8Ae8bdZ9N6Clpd5 zJNUa40xDSPTCrH0cDYKNaHd+JOSZijFNMSFabyP3s YR7g+0SlDKsyRnQJBBFcxPwrtuBrsTG1aXAIIKwAgPKtXElB/LqEXU19OxYOQZWNCfZY+JuvnMOa8L5/ QkdwfpLHefhZFWHKMmLLqKywGGpxpIRjAbCH3wLSdUQfZ+nRzND5ZPYLCG82jraoBVHAc86cQGpYvH2c 8sOjzPmGBScyz0NNNslvVwU2PRqTKAMT49IPLqCZbP OHm8ei6ypHMEY3oKZz4Kub+PdmNru/2lwKhKPjUFVx7KfrRB43nzip8eH3kg8sXGRUYwnAIsBOyAXzPu dwVqNEDHDXIgZyfcWlvusfRQuYmIoYTSnd+4XL4oEqqv5hu78sDGOxCprBc3PsjQCbc7S9oI/UIEpIi0 gJcBA6lrVLAPjv7rHpw17DCgs5ct/ELGq/KJgBIZ6a wJqjel6neHjPj9M9YcrdfJEgH/hgbFOZmMPQ8txaZf+PVpglWxRa40nbgKEFFyM8gph5zQvw5kZ1SGyp Iq1aAmt/XSTHJvQSWxmkL4kc5rbQ/qcFbwlmVnS0rrcmjn1RuCiAm1odNw4eMG4r/XeAJOE23jrz0Jo4 ROBBINS/yvoBp3iPbZ+0zYky6bYLZHAr+Zq32M37xMBY6O2 [file] IPXtFxO5EvMuOHSfGpB1Tt2hMTBPRk3+UOrebFBixJozHMXETfe8VcWFIiRvMI1UXZh= ID Date Data Source [id number] 05/09/2019 12:03:[address] [facility] Name Value Range Interpretation Code Description Data Milena rce(s) Supporting Document(s) Acetaminophen <2.0 ug/ml 10.0-30.0 Below low normal [facility] The above 1 analytes were performed by [facility] [id number] [place] [address], ,[place] [address] ID Date Data Source [id number] 05/09/2019 12:03:[address] [facility] Name Value Range Interpretation Code Description Data Milena rce(s) Supporting Document(s) Salicylates <1.7 mg/dl 2.8-20.0 Below low normal [facility] The above 1 analytes were performed by [facility] [id number] [place] [address], ,[place] [address] ID Date Data Source [id number] 05/09/2019 11:09:00 AM EST [facility] Name Value Range Interpretation Code Description Data Milena rce(s) Supporting Document(s) Alcohol, Blood <3 mg/dl 0-2 Normal (applies to non-numeric r esults) [facility] Alcohol test results for medical purpose s only!The above 1 analytes were performed by [facility] [id number] [place] [address], ,[place] [address] ID Date Data Source [id number] 05/09/2019 11:09:00 AM EST [facility] Name Value Range Interpretation Code Description Data Milena rce(s) Supporting Document(s) AST 20 IU/L 15-37 Normal (applies to non-numeric resul ts) [facility] Sulfasalazine and sulfapyridine have the potential to falsely depressAspartate Aminotransferase results. Baseline values before medication administration are recommended. ALT 23 IU/L 16-61 Normal (applies to non-numeric resul ts) [facility] Sulfasalazine and sulfapyridine have the potential to falsely depressAlanine Aminotransferase results. Baseline values before medication administration are recommended. Alkaline Phosphatase 64 mIU/ml 50-136 Normal (applies to non-num giles results) [facility] Total Bilirubin 0.60 mg/dl 0.20-1.00 Normal (applies to non-numeric results) [facility] Blood Urea Nitrogen 19 mg/dl 7-18 Above high normal [facility] Creatinine 0.81 mg/dl 0.67-1.17 Normal (applies to non-numeric resul ts) [facility] N-Acetylcysteine (NAC) and Metamizole nettles ve the potential to falselydepress Creatinine results. Baseline values before medication adminstration are recommended. Patients undergoing treatment with phenindione will have falselydepressed results. Patients on phenindione therapy should be tested with an alternativeCREA method. Glomerular Filtration Rate >90.00 mL/min/1.73m2 [facility] GFR Reference Ranges:Normal Function or Mild Renal Disease,if clinically at risk:>or= 60Moderately decreased:30 - 59Severely decreased:15 - 29Renal Failure:<15 Please note that the MDRD equation requires an additional adjustment forAfrican-Americans (multiply the GFR result by 1.210).Glomarular Filtration Rate (GFR) is estimated based on the MDRDequation, which assumes a steady state for creatinine (Priya Int Med 139/2 137-149, 2003), as recommended by the NationalKidney Disease Education Program in conjunction with the National Institutes of Health and the National KidneyFoundation. The [place] method used in calculating this result is traceable to IDMO standards. Glucose 71 mg/dl 70-110 Normal (applies to non-numeric resul ts) [facility] Sulfasalazine has the potential to false ly depress Glucose results. Sulfapyridine has the potential to falsely elevate Glucose results. Baseline values before medication administration are recommended. Calcium 9.5 mg/dl 8.5-10.1 Normal (applies to non-numeric resul ts) [facility] Total Protein 7.5 g/dl 6.4-8.2 Normal (applies to non-numeric re sults) [facility] Albumin 3.8 g/dl 3.4-5.0 Normal (applies to non-numeric resul ts) [facility] Sodium 138 mEq/L 136-145 Normal (applies to non-numeric resul ts) [facility] Potassium 4.3 mEq/L 3.5-5.1 Normal (applies to non-numeric resul ts) [facility] Chloride 105.0 mEq/L 98.0-107.0 Normal (applies to non-numeric resu lts) [facility] Carbon Dioxide 28.5 mMol/L 21.0-32.0 Normal (applies to non-numeric results) [facility] Anion Gap 8.8 [facility] The above 16 analytes were performed by [facility] [address], ,[place] [address] ID Date Data Source [id number] 05/09/2019 10:48:00 AM EST [facility] Name Value Range Interpretation Code Description Data Milena rce(s) Supporting Document(s) WBC 7.31 x1000/ul 4.80-10.00 Normal (applies to non-numeric re sults) [facility] RBC 4.56 x1Mil/ul 4.70-6.10 Below low normal [facility] Hemoglobin 13.8 g/dl 14.0-18.0 Below low normal [facility] Hematocrit 41.4 % 42.0-52.0 Below low normal [facility] MCV 90.8 fL 80.0-94.0 Normal (applies to non-numeric resul ts) [facility] MCH 30.3 pg 27.0-31.0 Normal (applies to non-numeric resul ts) [facility] MCHC 33.3 g/dl 32.2-37.0 Normal (applies to non-numeric resul ts) [facility] RDW 11.9 % 11.5-14.5 Normal (applies to non-numeric resul ts) [facility] Platelet Count 269 x1000/ul 130-400 Normal (applies to non-numeric results) [facility] MPV 10.1 fL 9.4-12.4 Normal (applies to non-numeric resul ts) [facility] Neutrophils 77.6 % 40.0-74.0 Above high normal [facility] Lymphocytes 12.7 % 19.0-48.0 Below low normal [facility] Monocytes 6.3 % 3.4-9.0 Normal (applies to non-numeric resul ts) [facility] Eosinophils 2.7 % 0.0-7.0 Normal (applies to non-numeric resu lts) [facility] Basophils 0.4 % 0.0-2.0 Normal (applies to non-numeric resul ts) [facility] Immature Granulocytes 0.3 % 0.0-0.5 Normal (applies to non-nu meric results) [facility] Nucleated RBCs 0.00 % 0.00-0.20 Normal (applies to non-numeric r esults) [facility] Abs. Neutrophils 5.67 x1000/ul 1.92-8.31 Normal (applies to non-numeric results) [facility] Abs. Lymphocyte 0.93 x1000/ul 1.20-3.70 Below low normal [facility] Abs. Monocytes 0.46 x1000/ul 0.14-0.97 Normal (applies to non-nu meric results) [facility] Abs. Eosinophils 0.20 x1000/ul 0.00-0.76 Normal (applie s to non-numeric results) [facility] Abs. Basophils 0.03 x1000/ul 0.00-0.22 Normal (applies to non-n umeric results) [facility] Abs. Immature Gran. 0.02 x1000/ul 0.00-0.02 Normal (appl ies to non-numeric results) [facility] Abs. Nucleated RBCs 0.00 x1000/ul 0.00-0.02 Normal (appl ies to non-numeric results) [facility] The above 24 analytes were performed by [facility] [id number] [place] [address],[facility]#: [id number],[place] [address] ID Date Data Source [id number] 04/17/2019 09:31:[address] [facility] Value Range Interpretation Code Description Data Milena rce(s) Supporting Document(s) Thyroid Stimulate Hormone TSH 0.358-3.740 No rmal (applies to non-numeric results) [facility] ID Date Data Source [id number] 04/08/2019 04:48:[address] [facility] Value Range Interpretation Code Description Data Milena rce(s) Supporting Document(s) C-Reactive Protein,Wide Range <3.00 Above high normal [facility] ID Date Data Source [id number] 04/08/2019 04:47:[address] [facility] Value Range Interpretation Code Description Data Milena rce(s) Supporting Document(s) White Blood Count 4.8-10.8 Normal (applies to non-numeri c results) [facility] Red Blood Count 4.35-6.08 Below low normal [facility] Hemoglobin 13.0-17.5 Below low normal [facility] Hematocrit 37.7-51.0 Below low normal [facility] Mean Corpuscular Volume 80-94 Normal (applies to non- numeric results) [facility] Mean Corpuscular Hemoglobin 27.0-33.0 Normal (appli es to non-numeric results) [facility] Mean Corpuscular HGB Conc 32.0-36.0 Normal (applies to no n-numeric results) [facility] Red Cell Distribution Width 11.5-14.5 Normal (appli es to non-numeric results) [facility] Platelet Count 300 X10 3/uL 130-450 Normal (applies to non-numeric results) [facility] Mean Platelet Volume 9.6-13.1 Normal (applies to non-num giles results) [facility] Imm Grans% (AUTO) 0 % 0-2 Normal (applies to non-numeri c results) [facility] Neutrophils % (AUTO) 66 % 40-75 Normal (applies to non-num giles results) [facility] Lymphocytes % (AUTO) 23 % 21-46 Normal (applies to non-num giles results) [facility] Monocytes % (AUTO) 8 % 5-12 Normal (applies to non-numer ic results) [facility] Eosinophils % (AUTO) 2 % 1-5 Normal (applies to non-num giles results) [facility] Basophils % (AUTO) 1 % 0-1 Normal (applies to non-numer ic results) [facility] Imm Grans# (AUTO) 0.00-0.50 Normal (applies to non-numeri c results) [facility] Neutrophils # (AUTO) 1.5-8.1 Normal (applies to non-num giles results) [facility] Lymphocytes # (AUTO) 1.0-3.1 Normal (applies to non-num giles results) [facility] Monocytes # (AUTO) 0.2-1.3 Normal (applies to non-numer ic results) [facility] Eosinophils# (AUTO) 0.0-0.5 Normal (applies to non-nume courtney results) [facility] Basophils # (AUTO) 0.00-0.10 Normal (applies to non-numer ic results) [facility] ID Date Data Source [id number] 04/08/2019 04:25:00 PM EST [facility] Name: RIVERA LEONE : 1970 A ge/Sex: 48M Ordering Provider: Svetlana SMITH Med Rec #: [id number] Reg Status: ADM IN Room #: 126-1 Date of Service: 04/08/19 Report Number: [id number] cc:Svetlana SMITH Send Report To: [id number] XRP/XR Wrist Lt Min. 3 Views Reason for exam: PAIN FINDINGS: No evidence for fractures, subluxation or adjacent soft tissue swelling is noted. IMPRESSION: UNREMARKABLE WRIST. Fluoroscopy time in seconds: 0 Number of Exposures: Time Portable Image Performed: Contrast Agent in ml: Method of Administration: REPORT SIGNATURE ON FILE Reported By: Mini Reyes MD <Electronically signed by Mini Reyes MD> 04/09/19 0629 Dictation Date/Time: 04/08/19 1324 Transcribed Date/Time: 04/08/19 1625 Auto Mechanics Teacher: TERE Name Value Range Interpretation Code Description Data Milena rce(s) Supporting Document(s) ID Date Data Source [id number] 04/03/2019 04:07:00 PM [facility] Name Value Range Interpretation Code Description Data Milena rce(s) Supporting Document(s) Hepatitis A Ab,IgM result Negative Normal (applies to no n-numeric results) [facility] Result does not exclude the possibility of exposure to hepatitis A virus. Antibody level during early infection stage may be below the limit of detection of the assay. Test Performed by: [facility] [address] [place] [address] Loss Prevention Consultant: Joseph Morales M.D. Ph.D.; CLIA# [id number] ID Date Data Source [id number] 04/02/2019 10:18:00 AM EST [facility] Name Value Range Interpretation Code Description Data Milena rce(s) Supporting Document(s) Sodium 139 mmol/L 137-145 Normal (applies to non-numeric resul ts) [facility] Potassium 3.5-5.1 Normal (applies to non-numeric resul ts) [facility] Chloride 105 mmol/L 98-112 Normal (applies to non-numeric resul ts) [facility] Carbon Dioxide CO2 22.0-33.0 Normal (applies to non-numer ic results) [facility] Anion Gap 4.0-11.0 Normal (applies to non-numeric resul ts) [facility] BUN 18 mg/dL 9-20 Normal (applies to non-numeric resul ts) [facility] Creatinine 0.80-1.50 Normal (applies to non-numeric resul ts) [facility] GFR 90 mL/min >60 Normal (applies to non-numeric resul ts) [facility] Result based on MDRD formula. Glucose Level 116 mg/dL 74-99 Above high normal [facility] The reference range is only applicable w hen fasting. Calcium-Uncorrected 8.4-10.2 Normal (applies to non-nume courtney results) [facility] Corrected Calcium 8.4-10.2 Normal (applies to non-numeri c results) [facility] Bilirubin,Total 0.2-1.3 Normal (applies to non-numeric results) [facility] Bilirubin,Direct 0.0-0.3 Normal (applies to non-numeric results) [facility] SGOT(AST) 23 U/L 17-59 Normal (applies to non-numeric resul ts) [facility] SGPT(ALT) 21 U/L 21-72 Normal (applies to non-numeric resul ts) [facility] Alkaline Phosphatase 67 U/L 38-126 Normal (applies to non-num giles results) [facility] can increase Alkaline Phosp le vels up to 2 times the normal adult value. Normal values for children and adolescents are 2 to 3 times the normal adult value. CPK 92 U/L 39-308 Normal (applies to non-numeric resul ts) [facility] Total Protein 6.3-8.2 Normal (applies to non-numeric re sults) [facility] Albumin 3.5-5.0 Normal (applies to non-numeric resul ts) [facility] Thyroid Stimulate Hormone TSH 0.358-3.740 Above high sujatha l [facility] ID Date Data Source [id number] 04/02/2019 10:18:00 AM EST [facility] Name Value Range Interpretation Code Description Data Milena rce(s) Supporting Document(s) Magnesium 1.80-2.40 Normal (applies to non-numeric resul ts) [facility] ID Date Data Source [id number] 04/02/2019 10:18:00 AM EST [facility] Name Value Range Interpretation Code Description Data Milena rce(s) Supporting Document(s) C-Reactive Protein,Wide Range <3.00 Above high normal [facility] ID Date Data Source [id number] 04/02/2019 09:43:00 AM EST [facility] Name Value Range Interpretation Code Description Data Milena rce(s) Supporting Document(s) White Blood Count 4.8-10.8 Normal (applies to non-numeri c results) [facility] Red Blood Count 4.35-6.08 Normal (applies to non-numeric results) [facility] Hemoglobin 13.0-17.5 Normal (applies to non-numeric resul ts) [facility] Hematocrit 37.7-51.0 Normal (applies to non-numeric resul ts) [facility] Mean Corpuscular Volume 80-94 Normal (applies to non- numeric results) [facility] Mean Corpuscular Hemoglobin 27.0-33.0 Normal (appli es to non-numeric results) [facility] Mean Corpuscular HGB Conc 32.0-36.0 Normal (applies to no n-numeric results) [facility] Red Cell Distribution Width 11.5-14.5 Normal (appli es to non-numeric results) [facility] Platelet Count 295 X10 3/uL 130-450 Normal (applies to non-numeric results) [facility] Mean Platelet Volume 9.6-13.1 Normal (applies to non-num giles results) [facility] Imm Grans% (AUTO) 0 % 0-2 Normal (applies to non-numeri c results) [facility] Neutrophils % (AUTO) 73 % 40-75 Normal (applies to non-num giles results) [facility] Lymphocytes % (AUTO) 17 % 21-46 Below low normal [facility] Monocytes % (AUTO) 7 % 5-12 Normal (applies to non-numer ic results) [facility] Eosinophils % (AUTO) 2 % 1-5 Normal (applies to non-num giles results) [facility] Basophils % (AUTO) 0 % 0-1 Normal (applies to non-numer ic results) [facility] Imm Grans# (AUTO) 0.00-0.50 Normal (applies to non-numeri c results) [facility] Neutrophils # (AUTO) 1.5-8.1 Normal (applies to non-num giles results) [facility] Lymphocytes # (AUTO) 1.0-3.1 Normal (applies to non-num giles results) [facility] Monocytes # (AUTO) 0.2-1.3 Normal (applies to non-numer ic results) [facility] Eosinophils# (AUTO) 0.0-0.5 Normal (applies to non-nume courtney results) [facility] Basophils # (AUTO) 0.00-0.10 Normal (applies to non-numer ic results) [facility] ID Date Data Source [id number] 04/02/2019 12:13:00 PM EST [facility] Name Value Range Interpretation Code Description Data Milena rce(s) Supporting Document(s) Hep C Ab-T Test Nonreactive N[facility] Results called 04/02/19 JUSTEN Gallego read back information to [facility] THIS IS A STATE REPORTABLE COMMUNICABLE DISEASE. Note: This patient's sample tests reactive with a high Index >/= 11.00. Samples with high indexes have been shown to repeat positive using a different methodology 95% of the time or greater but <5 of every 100 samples might be false positives. Additional testing for verification of the result can be requested by the physician if necessary. ([facility] MMWR No RR-3. 2003). ID Date Data Source [id number] 04/02/2019 12:14:00 PM [facility] Name Value Range Interpretation Code Description Data Milena rce(s) Supporting Document(s) ID Date Data Source [id number] 04/02/2019 12:14:00 PM [facility] Name Value Range Interpretation Code Description Data Milena rce(s) Supporting Document(s) ID Date Data Source [id number] 04/02/2019 12:14:00 PM [facility] Name Value Range Interpretation Code Description Data Milena rce(s) Supporting Document(s) Vitamin D,Total (25OH) 30.0-100.0 Below low normal [facility] Reference Range: <10 ng/mL: Deficien t 10-30 ng/mL: Insufficient 30-100 ng/mL: Sufficient >100 ng/mL: Toxicity possible ID Date Data Source [id number] 04/01/2019 11:47:00 AM [facility] Name Value Range Interpretation Code Description Data [facility] rce(s) Supporting Document(s) Opiate Screen,Urine Negative Normal (applies to non-nume courtney results) [facility] Amphetamine Screen,Urine Negative Normal (applies to non -numeric results) [facility] Benzodiazepines Scrn,Ur result Negative N ormal (applies to non-numeric results) [facility] Cocaine Screen,Urine Negative Normal (applies to non-num giles results) [facility] Methadone Screen,Urine Negative Normal (applies to non-n umeric results) [facility] Cannabinoid Screen, Ur Negative Normal (applies to non-n umeric results) [facility] Therapeutic Drug Ranges for Emergency an d Rehabilitation Threshold Levels (ng/mL) Cocaine 300 Opiates 300 Cannabinoids 50 Barbiturates 200 Benzodiazepine 200 Methadone 300 Amphetamines 1000 Emergency toxicol ogy analytes exceeding the therapeutic threshold levels are positive. The confirmation of all positive drug levels may be confirmed at the request of the attending physician. Results are to be used for medical treatment purposes only. ID Date Data Source [id number] 04/01/2019 11:14:00 AM [facility] Name Value Range Interpretation Code Description Data Milena rce(s) Supporting Document(s) Color,Urine Yellow Normal (applies to non-numeric resu lts) [facility] Clarity,Urine Clear [facility] Specific [place],Urine 1.001-1.030 Normal (applies to non- numeric results) [facility] PH,Urine 5.0-8.0 [facility] Protein,Urine Negative Normal (applies to non-numeric re sults) [facility] Glucose,Urine (UA) Negative Normal (applies to non-numer ic results) [facility] Ketones,Urine Negative Normal (applies to non-numeric re sults) [facility] Blood,Urine Negative Normal (applies to non-numeric resu lts) [facility] Bilirubin,Urine Negative Normal (applies to non-numeric results) [facility] Urobilinogen,Urine Norm 0.2-1 Normal (applies to non-numer ic results) [facility] Leukocyte Esterase,Urine Negative [facility] Nitrite,Urine Negative Normal (applies to non-numeric re sults) [facility] ID Date Data Source [id number] 04/01/2019 11:14:00 AM [facility] Name Value Range Interpretation Code Description Data Milena rce(s) Supporting Document(s) RBC,Auto Urine 0-2 [place]ettles [facility] WBC Urine Auto 0-2 [place] [facility] Casts,Hyaline,Urine Auto 0-2 Normal (applies to non -numeric results) [facility] Bacteria Urine Auto None Seen Normal (applies to non-nume courtney results) [facility] Epithelial Cell Ur Auto None-Few Normal (applies to non- numeric results) [facility] ID Date Data Source [id number] 02/15/2019 05:09:16 PM EST [facility] Measurements & CalculationsHeight: 65 inches (5 ft. 5 in.) 165.10 cm Weight Management Education Done (Nutrition/Physical Activity)Vital SignsTemperature: 97.5F oral Pulse Rate: 69 beats/minuteRespiratory Rate: 17 respirations/minuteBlood Pressure: 129/80 left arm sitting automaticO2 Saturation: 97% room airVital Signs performed by: Elana Finney MA, February 15, 2019 5:25 PMInitial Intake Information from: patientRoom #: 15Infectious Disease- Travel Have you or your sexual partner travelled outside of the country recently? NoSmoking, Tobacco or Smoke Exposure StatusSmoke Status: current every day smokerTobacco Use: YesAdv to Quit: YesPassive Smoke Exposure: YesHealthcare HistorySince your last office visit...Have you been admitted to the hospital? NoHave you been to an emergency room (ER) or urgent care clinic? NoHave you seen another healthcare provider? NoHave you seen a dentist? NoIntake performed by: Elana Finney MA, February 15, 2019 5:10 PMRate Your HealthIn general, would you say your health is? Very GoodPain AssessmentAre you currently having any pain which... You would like your provider to address? No Affects your activity level? NoDepression Screening - PHQ-2Over the last two weeks, have you... Had little interest or pleasure in doing things? Not at all Been feeling down, depressed, or hopeless? Not at all PHQ-2 Score: 0Anxiety Screening - SEBASTIAN-2Over the last two weeks, have you been... Feeling nervous, anxious, or on edge? Not at all Unable to stop or control worrying? Not at all SEBASTIAN-2 Score: 0Screening, Brief Intervention, & Referral to Treatment (SBIRT)Pre- Screening Questions How many times have you have 5 or more drinks in a day? 0How many times have you used an illegal drug or used a prescription medication for a non-medical reason? 0Performed by: Elana Finney MA, February 15, 2019 5:10 PMPatient History Medical History:Bipolar/ManicSubstance AbuseSurgical History:appendectomyFamily History:COPD (mother)Heart disease (Father)Hypertension (Father)Social/Personal History: Smoking Status: current every day smokerAdvised to Quit/Tobacco Education: YesChief Complaintfollow-up visit substance abuseHistory of Present Illness (HPI)I, lEana Finney MA, am scribing for and in the presence of, Dr Scarlett Nova MD48 yo male here for a follow upStates that when his medication was sent for Suboxone last week it was sent incorrectly. Dr Pemberton told him to cut in half and increase his dose, pt does not want to increase and he cannot take the 12mg as they are too thick and they make the pt vomit. He has not opened any of these. Have talked to Jameson & he said it was okay to send 4mg. Spoke to pharmacy and they will not fill as pt picked up a 7 day supply yesterday. Have advised patient to take films he has and cut into either 1/2 or 1/3 and take film with a candy to help break down the taste. pt is seeing [facility] 4x a week. we will take over writing his abilify & trazodone. will send [facility]. Problem ReviewProblem List was reviewed and/or updated during this visit.Allergy ReviewAllergy List was reviewed and/or updated during this visit.Adult Preventive CareScreening Tobacco Screening: Smoking Status: current every day smoker (02/15/2019) Advised to Quit: Yes (02/15/2019)Labs/Meds/Other Counseling-Nutrition and Physical Activity:BMI Interpretation: Healthy Weight (02/13/2019) Counseling: Done (02/15/2019) Physical Activity: Done (02/15/2019)Review of Systems General: GEN: No night sweats, weight loss, fevers, chillsEyes: No vision changesEars: No hearing lossNose: No sinus painThroat: No sore throatResp: No sob, wheezingCV: No chest painGI: No abdominal painGU: No dysuria, urinary frequencyMusculoskeletal: No myalgias, arthralgiasNeuro: No NETTLES, unilateral paresthesias, weaknessLympatics: No Lymph node swellingEndocrine: No polydipsia, polyuriaPhysical ExamGeneral Appearance: well nourished, well hydrated, no acute distressEyes, External: conjunctivae and lids normal, EOMIExternal Ears: normal, no lesions or deformitiesHearing: grossly intactOtoscopy: canals clear, tympanic membranes intact, no fluid, light reflex intact bilaterallyExternal Nose: normal, no lesions or deformitiesNasal: mucosa, septum, and turbinates normal, nares patentLips/Teeth/Gums: normal dentition, no gingival inflammation, no labial lesionsPharynx: tongue normal, posterior pharynx without erythema or exudate, no thrush/aphthous ulcerRespiratory, Auscultation: clear to auscultation bilaterally; no rales, rhonchi, or wheezesRespiratory, Effort: no intercostal retractions or use of accessory musclesCardiovascular, Auscultation: S1, S2 audible; no murmur, rub, or gallop; RRRPeripheral Circulation: no clubbing, cyanosis, edema, or varicositiesAbdomen: soft, non-tender, no masses, bowel sounds normalGait & Station: normalSkin, Inspection: no rashes, lesions, or ulcerationsOrientation: oriented to time, place, and personMood & Affect: Psychiatric exam: Appearance: Neat, well groomed, tiredAffect: WorriedMood: AnxiousThought content: No SI/ HI/ delusionThought processes: Organized,Judgement: FairInsight: FairJudgment & Insight: intactRate Your HealthIn general, would you say your health is? Very GoodAssessment & Plan Problems:Assessed:Opioid dependence, in remission (ICD10- F11.21) Assessment: Instructions: Counseled patient on all diagnoses/ treatments. Return to clinic/ ER for any worsening symptoms or concernsPt will cut his Subocone into 1/3 strips and use slurpees/ lemon ice to try to cope with taste for now- has f/u with Dr Pemberton.Patient Instructions/Care Plan: Opioid dependence- in remission: Counseled patient on all diagnoses/ treatments. Return to clinic/ ER for any worsening symptoms or concernsPt will cut his Subocone into 1/3 strips and use slurpees/ lemon ice to try to cope with taste for now- has f/u with Dr Pemberton. Plan developed in collaboration with patient and/or familyMedication Changes:New Prescription:ABILIFY 5 MG ORAL TABLET-po daily Qty: 30[Tablet] Refills: 3 Method: ElectronicTRAZODONE HCL 150 MG ORAL TABLET-po at night Qty: 30[Tablet] Refills: 3 Method: ElectronicRemoved:ABILIFY 2 MG ORAL TABLET-2 tabs dailyAllergies:No Known Allergies (updated 02/15/2017) Orders:Adult - Ofc Vst, EST, Level III [CPT- 54816] Follow-Up Return to clinic: in 1 week for f/uAdditional Follow-Up: Counseled patient on all diagnoses/ treatments. Return to clinic/ ER for any worsening symptoms or concernsClinical Visit Summary Declined Name Value Range Interpretation Code Description Data Milena rce(s) Supporting Document(s) ID Date Data Source [id number] 02/08/2019 11:25:22 AM EST [facility] Measurements & CalculationsHeight: 65 inches (5 ft. 5 in.) 165.10 cm Weight: 134.5 pounds 61.14 kg Body Mass Index (BMI): 22.46BMI Interpretation: Healthy WeightBody Surface Area (BSA): 1.67Weight Management Education Done (Nutrition/Physical Activity)Vital SignsTemperature: 98.2F oral Pulse Rate: 73 beats/minuteRespiratory Rate: 17 respirations/minuteBlood Pressure: 135/90 left arm sitting automaticO2 Saturation: 96% room airVital Signs performed by: Denise Marcos LPN, February 08, 2019 11:34 AMInitial Intake Information from: patientRoom #: 15Smoking, Tobacco or Smoke Exposure StatusSmoke Status: current every day smokerTobacco Use: YesAdv to Quit: YesPassive Smoke Exposure: YesHealthcare HistorySince your last office visit...Have you been admitted to the hospital? Yes - [facility] inpatient [facility]habHave you been to an emergency room (ER) or urgent care clinic? NoHave you seen another healthcare provider? NoHave you seen a dentist? NoIntake performed by: Denise Marcos LPN, February 08, 2019 11:30 AMRate Your HealthIn general, would you say your health is? Very GoodPain AssessmentAre you currently having any pain which... You would like your provider to address? No Affects your activity level? NoDepression Screening - PHQ-2Over the last two weeks, have you. .. Had little interest or pleasure in doing things? Not at all Been feeling down, depressed, or hopeless? Not at all PHQ-2 Score: 0Screening, Brief Intervention, & Referral to Treatment (SBIRT)Pre-Screening Questions How many times have you have 5 or more drinks in a day? 0How many times have you used an illegal drug or used a prescription medication for a non-medical reason? 0Performed by: Denise Marcos LPN, February 08, 2019 11:31 AMPatient History Medical History:Bipolar Surgical History:appendectomy Family History:COPD (mother)Heart disease (Father)Hypertension (Father)Social/Personal History: Smoking Status: current every day smokerAdvised to Quit/Tobacco Education: YesChief ComplaintHD inpatient substance abuseHistory of Present Illness (HPI)48 yo male here for f/u for HD for inpatient rehabI, Elana Finney MA, am scribing for and in the presence of, Dr Scarlett Nova MDpt states that he is just getting out of rehab for a 21 day program - was mandated by DSSis following with dr alcantara for MAT next week for an inductioin appt, 10/13 in severity, worse wtih stress, better with rest, non- radiaitng, not assoc with SI/ HI/ deluiions has cut back on his smoking due to the use of Nicotrol. has recently had his levels for Hep C tested and it is undetectable. will send to GI for anemia/colonoscopy. Transitions of Care InboundProblem ReviewProblem List was reviewed and/or updated during this visit.Medication Reconciliation & ReviewMedication List was reviewed and/or updated during this visit, including review of any plau-iuf-wapshcy medications, herbal therapies, and/or supplements.Allergy ReviewAllergy List was reviewed and/or updated during this visit.Adult Preventive CareProvider Calculated and Reviewed all Clinical Protocols for patient today. Screening Tobacco Screening: Smoking Status: current every day smoker (02/08/2019) Advised to Quit: Yes (02/08/2019)Labs/Meds/Other Counseling-Nutrition and Physical Activity:BMI Interpretation: Healthy Weight (02/08/2019) Counseling: Done (02/08/2019) Physical Activity: Done (02/08/2019)Review of Systems General: GEN: No night sweats, weight loss, fevers, chillsEyes: No vision changesEars: No hearing lossNose: No sinus pa inThroat: No sore throatResp: No sob, wheezingCV: No chest painGI: No abdominal painGU: No dysuria, urinary frequencyMusculoskeletal: No myalgias, arthralgiasNeuro: No NETTLES, unilateral paresthesias, weaknessLympatics: No Lymph node swellingEndocrine: No polydipsia, polyuriaPhysical ExamGeneral Appearance: well nourished, well hydrated, no acute distressEyes, External: conjunctivae and lids normal, EOMIExternal Ears: normal, no lesions or deformitiesHearing: grossly intactOtoscopy: canals clear, tympanic membranes intact, no fluid, light reflex intact bilaterallyExternal Nose: normal, no lesions or deformitiesNasal: mucosa, septum, and turbinates normal, nares patentLips/Teeth/Gums: normal dentition, no gingival inflammation, no labial lesionsPharynx: tongue normal, posterior pharynx without erythema or exudate, no thrush/aphthous ulcerRespiratory, Auscultation: clear to auscultation bilaterally; no rales, rhonchi, or wheezesRespiratory, Effort: no intercostal retractions or use of accessory musclesCardiovascular, Auscultation: S1, S2 audible; no murmur, rub, or gallop; RRRPeripheral Circulation: no clubbing, cyanosis, edema, or varicositiesAbdomen: soft, non-tender, no masses, bowel sounds normalGait & Station: normalSkin, Inspection: no rashes, lesions, or ulcerationsOrientation: oriented to time, place, and personMood & Affect: Psychiatric exam: Appearance: Neat, well groomed, tiredAffect: WorriedMood: AnxiousThought content: No SI/ HI/ delusionThought processes: Organized,Judgement: FairInsight: FairJudgment & Insight: intactCare Management Plan Transitions of CareInboundRate Your HealthIn general, would you say your health is? Very GoodAssessment & Plan Problems:Assessed:Hepatitis C (ICD-070.70) (RBI61-E64.20) Assessment: Instructions: Counseled patient on all diagnoses/ treatments. Return to clinic/ ER for any worsening symptoms or concernsOpioid dependence, in remission (ICD10- F11.21) Assessment: Instructions: Counseled patient on all diagnoses/ treatments. Return to clinic/ ER for any worsening symptoms or concernsCont f/u with Dr. Pemberton for inductionNicotine dependence (ICD-305.1) (KKS24-U85.200) Assessment: Instructions: Counseled on tobacco cessation for 10 min.Medication issuedPatient Instructions/Care Plan: Hepatitis C: Counseled patient on all diagnoses/ treatments. Return to clinic/ ER for any worsening symptoms or concernsOpioid dependence- in remission: Counseled patient on all diagnoses/ treatments. Return to clinic/ ER for any worsening symptoms or concernsCont f/u with Dr. Pemberton for inductionNicotine dependence: Counseled on tobacco cessation for 10 min.Medication issued Plan developed in collaboration with patient and/or familyMedications:SUBOXONE 12-3 MG SUBLINGUAL FILMNICOTROL 10 MG INHALATION INHALERHYDROXYZINE HCL 25 MG ORAL TABLETIBU 800 MG ORAL TABLETABILIFY 2 MG ORAL TABLETAllergies:No Known Allergies (updated 02/15/2017) Orders:Adult - Ofc Vst, EST, Level IV [CPT-40972] Follow-Up Return t o clinic: in 30 days for f/uAdditional Follow-Up: Counseled patient on all diagnoses/ treatments. Return to clinic/ ER for any worsening symptoms or concernsClinical Visit Summary Declined Name Value Range Interpretation Code Description Data Milena rce(s) Supporting Document(s) ID Date Data Source [id number] 01/30/2019 02:59:00 PM [facility] Name Value Range Interpretation Code Description Data Milena rce(s) Supporting Document(s) Opiate Screen,Urine Negative Normal (applies to non-nume courtney results) [facility] Amphetamine Screen,Urine Negative Normal (applies to non -numeric results) [facility] Benzodiazepines Scrn,Ur result Negative N ormal (applies to non-numeric results) [facility] Cocaine Screen,Urine Negative Normal (applies to non-num giles results) [facility] Methadone Screen,Urine Negative Normal (applies to non-n umeric results) [facility] Cannabinoid Screen, Ur Negative Normal (applies to non-n umeric results) [facility] Therapeutic Drug Ranges for Emergency an d Rehabilitation Threshold Levels (ng/mL) Cocaine 300 Opiates 300 Cannabinoids 50 Barbiturates 200 Benzodiazepine 200 Methadone 300 Amphetamines 1000 Emergency toxicol ogy analytes exceeding the therapeutic threshold levels are positive. The confirmation of all positive drug levels may be confirmed at the request of the attending physician. Results are to be used for medical treatment purposes only. ID Date Data Source [id number] 01/30/2019 01:30:00 PM [facility] Name: RIVERA LEONE : 1970 A ge/Sex: 48M Ordering Provider: Svetlana SMITH Med Rec #: [id number] Reg Status: ADM IN Room #: 127-1 Date of Service: 01/30/19 Report Number: [id number] cc:Svetlana SMITH Send Report To: [id number] XRP/XR Abdomen 1 View [KUB] Reason for exam: constipation FINDINGS: Large amount of stool identified throughout the colon consistent with constipation. Bowel gas pattern otherwise within normal limits without anyother significant findings. IMPRESSION: Findings consistent with constipation. Fluoroscopy time in seconds: Number of Exposures: Time Portable Image Performed: Contrast Agent in ml: Method of Administration: REPORT SIGNATURE ON FILE Reported By: Jovan Orozco MD <Electronically signed by Keyanna Moreno> 01/30/19 1346 Dictation Date/Time: 01/30/19 0825 Transcribed Date/Time: 01/30/19 1330 Auto Mechanics Teacher: TERE Name Value Range Interpretation Code Description Data Milena rce(s) Supporting Document(s) ID Date Data Source [id number] 02/09/2019 12:41:00 AM [facility] Name Value Range Interpretation Code Description Data Milena rce(s) Supporting Document(s) Buprenorphine+Nor QL,Urine . Very abnormal (appli es to non-numeric units [facility] Confirmation performed by [employer] try Buprenorphine QL,Ur Confirm . Very abnormal (appl ies to non-numeric units [facility] Buprenorphine Qnt,Ur Confirm 40 ng/mL Cutoff=10 Nor mal (applies to non-numeric results) [facility] Norbuprenorphine QL,Ur Cfm . Very abnormal (appli es to non-numeric units [facility] Norbuprenorphine Qnt,Ur Cfm 540 ng/mL Cutoff=10 Norm al (applies to non-numeric results) [facility] Performed at: [address] [id number] Loss Prevention Consultant: Lianet Pruitt MD, Phone: [phone] ID Date Data Source [id number] 01/30/2019 03:39:00 PM [facility] Name Value Range Interpretation Code Description Data Milena rce(s) Supporting Document(s) Bupren Scrn,Ur wRfx LCI SO res Negative Nettles [facility] This specimen [facility] for confirmation of positive result. ID Date Data Source [id number] 01/23/2019 01:08:00 AM EST [facility] Name Value Range Interpretation Code Description Data Milena rce(s) Supporting Document(s) HCV RNA Detect/Quant,S result Undetected No rmal (applies to non-numeric results) [facility] Result in log IU/mL is Undetected. ---- ADDITIONAL INFORMATION The quantification range of this assay is 15 to 100,000,000 IU/mL (1.18 log to 8.00 log IU/mL). Testing was performed using the aníbal HCV test ([employer] with the aníbal Unblab0 System. Test Performed by: [place] [address] Loss Prevention Consultant: Joseph Morales M.D. 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[employer]) Vital Signs ID Date Data Source UNK Name Value Range Interpretation Code Description Data Source(s) Diastolic blood pressure 69.0 MM[HG] 69.0 MM[HG ] NETSMART ([employer] [facility]) Systolic blood pressure 108.0 MM[HG] 108.0 MM[H G] NETSMART ([facility]) Oxygen saturation in Arterial blood by Pulse oximetry 98.0 % 98.0 % NETSMART ([facility]) Respiratory rate 18.0 /MIN 18.0 /MIN NETSMART ([employer]) Heart rate 121.0 /MIN 121.0 /MIN NETSMART ([facility]) Body temperature 37.2 ESTUARDO 37.2 ESTUARDO NETSMART ([employer] [facility]) Body temperature 98.9 [DEGF] 98.9 [DEGF] NETSMA RT ([facility]) Diastolic blood pressure 66.0 MM[HG] 66.0 MM[HG ] NETSMART ([employer]) Systolic blood pressure 102.0 MM[HG] 102.0 MM[H G] [facility] ([facility]) Respiratory rate 12.0 /MIN 12.0 /MIN [facility]SM[facility] ([facility]) Heart rate 66.0 /MIN 66.0 /MIN [facility]SMART ([facility]) Body temperature 36.7 ESTUARDO 36.7 ESTUARDO NETSMART ([facility]) Body temperature 98.0 [DEGF] 98.0 [DEGF] NETSMA RT ([facility]) Diastolic blood pressure 82.0 MM[HG] 82.0 MM[HG ] NETSMART ([facility]) Systolic blood pressure 126.0 MM[HG] 126.0 MM[H G] NETSMART ([facility]) Oxygen saturation in Arterial blood by Pulse oximetry 96.0 % 96.0 % NETSMART ([facility]) Respiratory rate 18.0 /MIN 18.0 /MIN NETSMART ([facility]) Heart rate 81.0 /MIN 81.0 /MIN [facility] ([facility]) Body temperature 36.7 ESTUARDO 36.7 ESTUARDO NETSMART ([facility]) Body temperature 98.0 [DEGF] 98.0 [DEGF] NETSMA RT ([facility]) ID Date Data Source [id number] 03/03/2020 11:36:00 AM EST [facility] Name Value Range Interpretation Code Description Data Source(s) Weight (Calculated Kilograms) 64.86 64.86 [facility] Height (Calculated Centimeters) 165.1 165. 1 [facility] Body Mass Index (BMI) 23.8 23.8 [facility] ID Date Data Source [id number] 03/11/2020 11:52:00 AM [facility] Name Value Range Interpretation Code Description Data Source(s) Weight Measurement Method 1 1 [facility] Weight (Calculated Kilograms) 64.86 64.86 [facility] Weight 2288 2288 [facility] Temperature Source 7 7 [facility] Temperature 98.2 98.2 [facility] Respiratory Effort 1 1 [facility] Respiratory Rate 16 16 [facility] Pulse Assessment Method 4 4 [facility] Pulse Rate 68 68 [facility] Height (Calculated Centimeters) 165.1 165. 1 [facility] Height 65 65 [facility] Blood Pressure 123/83 123/83 [facility] Body Mass Index (BMI) 23.8 23.8 [facility] Weight Measurement Method 1 1 [facility] Weight (Calculated Kilograms) 64.86 64.86 [facility] Weight 2288 2288 [facility] Temperature Source 7 7 [facility] Temperature 98.2 98.2 [facility] Respiratory Effort 1 1 [facility] Respiratory Rate 16 16 [facility] Pulse Assessment Method 4 4 [facility] Pulse Rate 68 68 [facility] Height (Calculated Centimeters) 165.1 165. 1 [facility] Height 65 65 [facility] Blood Pressure 123/83 123/83 [facility] Body Mass Index (BMI) 23.8 23.8 [facility] Weight (Calculated Kilograms) 57.61 57.61 [facility] Height (Calculated Centimeters) 165.1 165. 1 [facility] Body Mass Index (BMI) 21.1 21.1 [facility] ID Date Data Source [id number] 12/30/2019 03:25:09 PM EDT [facility] Name Value Range Interpretation Code Description Data Source(s) TRANSFER FROM [facility] ID Date Data Source [id number] 11/20/2019 07:16:00 PM EDT [facility] Name Value Range Interpretation Code Description Data Source(s) Weight (Calculated Kilograms) 57.61 57.61 [facility] Height (Calculated Centimeters) 165.1 165. 1 [facility] Body Mass Index (BMI) 21.1 21.1 [facility] ID Date Data Source [id number] 11/19/2019 02:46:00 PM EDT [facility] Name Value Range Interpretation Code Description Data Source(s) Weight (Calculated Kilograms) 57.61 57.61 [facility] Height (Calculated Centimeters) 165.1 165. 1 [facility] Body Mass Index (BMI) 21.1 21.1 [facility] ID Date Data Source [id number] 11/26/2019 09:53:00 AM EDT [facility] Name Value Range Interpretation Code Description Data Source(s) Weight Measurement Method 1 1 [facility] Weight (Calculated Kilograms) 58.20 58.20 [facility] Weight 2051.8 2051.8 [facility] pital Temperature Source 7 7 [facility] Temperature 98.0 98.0 [facility] spital Respiratory Effort 1 1 [facility] Respiratory Rate 18 18 [facility] Pulse Assessment Method 4 4 [facility] Pulse Rate 74 74 [facility] pital Height (Calculated Centimeters) 165.1 165. 1 [facility] 65 65 [facility] 96/60 96/60 [facility] Body Mass Index (BMI) [address] [facility] Weight Measurement Method 1 1 [facility] Weight (Calculated Kilograms) 58.20 58.20 [facility] Weight 2051.2051.8 [facility] pital Temperature Source 7 7 [facility] Temperature 98.0 98.0 [facility] spital Respiratory Effort 1 1 [facility] Respiratory Rate 18 18 [facility] Pulse Assessment Method 4 4 [facility] Pulse Rate 74 74 [facility] pital Height (Calculated Centimeters) 165.1 165. 1 [facility] Height 65 65 [facility] 96/60 96/60 [facility] Body Mass Index (BMI) 21.[address] [facility] Weight Measurement Method 1 1 [facility] Weight (Calculated Kilograms) 58.20 58.20 [facility] Weight 2051.8 2051.8 [facility] pital Temperature Source 7 7 [facility] Temperature 98.0 98.0 [facility] Respiratory Effort 1 1 [facility] Respiratory Rate 18 18 [facility] Pulse Assessment Method 4 4 [facility] Pulse Rate 74 74 [facility] pital Height (Calculated Centimeters) 165.1 165. 1 [facility] Height 65 65 [facility] pital Blood Pressure 96/60 96/60 [facility] Body Mass Index (BMI) 21.[address] [facility] Weight Measurement Method 1 1 [facility] Weight (Calculated Kilograms) 58.20 58.20 [facility] Weight 2051.2051.8 [facility] pital Temperature Source 7 7 [facility] Temperature 96.9 96.9 [facility] spital Respiratory Effort 1 1 [facility] Respiratory Rate 18 18 [facility] Pulse Assessment Method 4 4 [facility] Pulse Rate 68 68 [facility] pital Height (Calculated Centimeters) 165.1 165. 1 [facility] Height 65 65 [facility] 102/70 102/70 [facility] Body Mass Index (BMI) 21.[address] [facility] Weight Measurement Method 1 1 [facility] Weight (Calculated Kilograms) 58.20 58.20 [facility] Weight 2051.2051.8 [facility] pital Temperature Source 7 7 [facility] Temperature 97.6 97.6 [facility] Respiratory Effort 1 1 [facility] Respiratory Rate 18 18 [facility] Pulse Assessment Method 4 4 [facility] Pulse Rate 85 85 [facility] pital Height (Calculated Centimeters) 165.1 165. 1 [facility] Height 65 65 [facility] pital Blood Pressure 129/72 129/72 [facility] Body Mass Index (BMI) 21.[address] [facility] Weight Measurement Method 1 1 [facility] Weight (Calculated Kilograms) 58.20 58.20 [facility] Weight 2051.8 2051.8 [facility] pital Temperature Source 7 7 [facility] Temperature 98.2 98.2 [facility] Respiratory Effort 1 1 [facility] Respiratory Rate 18 18 [facility] Pulse Assessment Method 4 4 [facility] Pulse Rate 80 80 [facility] pital Height (Calculated Centimeters) 165.1 165. 1 [facility] Height 65 65 [facility] pital Blood Pressure 110/72 110/72 [facility] Body Mass Index (BMI) 21.[address] [facility] Weight Measurement Method 1 1 [facility] Weight (Calculated Kilograms) 58.20 58.20 [facility] Weight 2052.8 2052.8 [facility] pital Temperature Source 7 7 [facility] Temperature 98.2 98.2 [facility] spital Respiratory Effort 1 1 [facility] Respiratory Rate 18 18 [facility] Pulse Assessment Method 4 4 [facility] Pulse Rate 85 85 [facility] Height (Calculated Centimeters) 165.1 165. 1 [facility] Height 65 65 [facility] pital Blood Pressure 121/86 121/86 [facility] Body Mass Index (BMI) 21.[address] [facility] Weight (Calculated Kilograms) 57.42 57.42 [facility] Height (Calculated Centimeters) 165.1 165. 1 [facility] Body Mass Index (BMI) 21.[address] [facility] ID Date Data Source [id number] 10/08/2019 11:47:00 AM EDT [facility] Name Value Range Interpretation Code Description Data Source(s) Weight Measurement Method 1 1 [facility] Weight (Calculated Kilograms) 57.61 57.61 [facility] Weight 2054.4 2054.4 [facility] Temperature Source 7 7 [facility] Temperature 98.6 98.6 [facility] Respiratory Effort 1 1 [facility] Respiratory Rate 18 18 [facility] Pulse Assessment Method 4 4 [facility] Pulse Rate 65 65 [facility] Height (Calculated Centimeters) 165.1 165. 1 [facility] Height 65 65 [facility] Blood Pressure 90/65 90/65 [facility] Body Mass Index (BMI) 21.1 21.1 [facility] Weight Measurement Method 1 1 [facility] Weight (Calculated Kilograms) 57.61 57.61 [facility] Weight 2054.4 2054.4 [facility] Temperature Source 7 7 [facility] Temperature 98.6 98.6 [facility] Respiratory Effort 1 1 [facility] Respiratory Rate 18 18 [facility] Pulse Assessment Method 4 4 [facility] Pulse Rate 65 65 [facility] Height (Calculated Centimeters) 165.1 165. 1 [facility] Height 65 65 [facility] Blood Pressure 90/65 90/65 [facility] Body Mass Index (BMI) 21.1 21.1 [facility] Weight Measurement Method 1 1 [facility] Weight (Calculated Kilograms) 57.61 57.61 [facility] Weight 2054.4 2054.4 [facility] Temperature Source 7 7 [facility] Temperature 98.6 98.6 [facility] Respiratory Effort 1 1 [facility] Respiratory Rate 18 18 [facility] Pulse Assessment Method 4 4 [facility] Pulse Rate 65 65 [facility] Height (Calculated Centimeters) 165.1 165. 1 [facility] Height 65 65 [facility] Blood Pressure 90/65 90/65 [facility] Body Mass Index (BMI) 21.1 21.1 [facility] Weight (Calculated Kilograms) 57.61 57.61 [facility] Height (Calculated Centimeters) 165.1 165. 1 [facility] Body Mass Index (BMI) 21.1 21.1 [facility] Weight (Calculated Kilograms) 57.61 57.61 [facility] Height (Calculated Centimeters) 165.1 165. 1 [facility] Body Mass Index (BMI) 21.1 21.1 [facility] Weight (Calculated Kilograms) 57.61 57.61 [facility] Height (Calculated Centimeters) 165.1 165. 1 [facility] Body Mass Index (BMI) 21.1 21.1 [facility] ID Date Data Source [id number] 10/01/2019 12:13:00 AM EDT [facility] Name Value Range Interpretation Code Description Data Source(s) Weight Measurement Method 1 1 [facility] Weight (Calculated Kilograms) 57.61 57.61 [facility] Weight 2031 2031 [facility] Temperature Source 7 7 [facility] Temperature 98.3 98.3 [facility] Respiratory Effort 1 1 [facility] Respiratory Rate 16 16 [facility] Pulse Assessment Method 4 4 [facility] Pulse Rate 55 55 [facility] Height (Calculated Centimeters) 165.1 165. 1 [facility] Height 65 65 [facility] Blood Pressure 102/66 102/66 [facility] Body Mass Index (BMI) 21.1 21.1 [facility] Weight Measurement Method 1 1 [facility] Weight (Calculated Kilograms) 57.61 57.61 [facility] Weight 2031 2031 [facility] Temperature Source 7 7 [facility] Temperature 98.3 98.3 [facility] Respiratory Effort 1 1 [facility] Respiratory Rate 16 16 [facility] Pulse Assessment Method 4 4 [facility] Pulse Rate 55 55 [facility] Height (Calculated Centimeters) 165.1 165. 1 [facility] Height 65 65 [facility] Blood Pressure 102/66 102/66 [facility] Body Mass Index (BMI) 21.1 21.1 [facility] Weight Measurement Method 1 1 [facility] Weight (Calculated Kilograms) 57.61 57.61 [facility] Weight 2031 2031 [facility] Temperature Source 7 7 [facility] Temperature 98.3 98.3 [facility] Respiratory Effort 1 1 [facility] Respiratory Rate 16 16 [facility] Pulse Assessment Method 4 4 [facility] Pulse Rate 55 55 [facility] Height (Calculated Centimeters) 165.1 165. 1 [facility] Height 65 65 [facility] Blood Pressure 102/66 102/66 [facility] Body Mass Index (BMI) 21.1 21.1 [facility] Weight Measurement Method 1 1 [facility] Weight (Calculated Kilograms) 57.61 57.61 [facility] Weight 2031 2031 [facility] Temperature Source 7 7 [facility] Temperature 97.6 97.6 [facility] Respiratory Effort 1 1 [facility] Respiratory Rate 16 16 [facility] Pulse Assessment Method 4 4 [facility] Pulse Rate 66 66 [facility] Height (Calculated Centimeters) 165.1 165. 1 [facility] Height 65 65 [facility] Blood Pressure 88/59 88/59 [facility] Body Mass Index (BMI) 21.1 21.1 [facility] Weight Measurement Method 1 1 [facility] Weight (Calculated Kilograms) 57.61 57.61 [facility] Weight 2031 2031 [facility] Temperature Source 7 7 [facility] Temperature 97.6 97.6 [facility] Respiratory Effort 1 1 [facility] Respiratory Rate 16 16 [facility] Pulse Assessment Method 4 4 [facility] Pulse Rate 65 65 [facility] Height (Calculated Centimeters) 165.1 165. 1 [facility] Height 65 65 [facility] Blood Pressure 117/84 117/84 [facility] Body Mass Index (BMI) 21.1 21.1 [facility] Weight Measurement Method 1 1 [facility] Weight (Calculated Kilograms) 57.61 57.61 [facility] Weight 2031 2031 [facility] Temperature 98 98 [facility] Respiratory Effort 1 1 [facility] Respiratory Rate 16 16 [facility] Pulse Rate 98 98 [facility] Height (Calculated Centimeters) 165.1 165. 1 [facility] Height 65 65 [facility] Blood Pressure 143/92 143/92 [facility] Body Mass Index (BMI) 21.1 21.1 [facility] Weight (Calculated Kilograms) 56.70 56.70 [facility] Height (Calculated Centimeters) 165.1 165. 1 [facility] Body Mass Index (BMI) 20.7 20.7 [facility] ID Date Data Source [id number] 09/12/2019 03:41:00 PM EDT [facility] Name Value Range Interpretation Code Description Data Source(s) Weight (Calculated Kilograms) 56.70 56.70 [facility] Height (Calculated Centimeters) 165.1 165. 1 [facility] Body Mass Index (BMI) 20.7 20.7 [facility] ID Date Data Source [id number] 09/13/2019 03:52:00 PM EDT [facility] Name Value Range Interpretation Code Description Data Source(s) Weight (Calculated Kilograms) 56.70 56.70 [facility] Height (Calculated Centimeters) 165.1 165. 1 [facility] Body Mass Index (BMI) 20.7 20.7 [facility] ID Date Data Source [id number] 09/18/2019 10:51:00 AM EDT [facility]ital Name Value Range Interpretation Code Description Data Source(s) Weight (Calculated Kilograms) 57.42 57.42 [facility] Weight 2015 2015 [facility] pital Temperature Source 7 7 [facility] Temperature 98.2 98.2 [facility] spital Respiratory Effort 1 1 [facility] Respiratory Rate 20 20 [facility] Pulse Assessment Method 4 4 [facility] Pulse Rate 85 85 [facility] Height (Calculated Centimeters) 165.1 165. 1 [facility] Height 65 65 [facility] Blood Pressure 125/81 125/81 [facility] Body Mass Index (BMI) [address] [facility] Weight (Calculated Kilograms) 57.42 57.42 [facility] 2015 [facility] Temperature Source 7 7 [facility] Temperature 98.2 98.2 [facility] spital Respiratory Effort 1 1 [facility] Respiratory Rate 20 20 [facility] Pulse Assessment Method 4 4 [facility] Pulse Rate 85 85 [facility] pital Height (Calculated Centimeters) 165.1 165. 1 [facility] Height 65 65 [facility] 125/81 125/81 [facility] Body Mass Index (BMI) [address] [facility] Weight (Calculated Kilograms) 57.42 57.42 [facility] Weight 2015 2015 [facility] pital Temperature Source 7 7 [facility] Temperature 98.2 98.2 [facility] spital Respiratory Effort 1 1 [facility] Respiratory Rate 20 20 [facility] Pulse Assessment Method 4 4 [facility] Pulse Rate 85 85 [facility] pital Height (Calculated Centimeters) 165.1 165. 1 [facility] Height 65 65 [facility] pital Blood Pressure 125/81 125/81 [facility] Body Mass Index (BMI) [address] [facility] Weight (Calculated Kilograms) 57.42 57.42 [facility] Weight 2015 2015 [facility] pital Temperature Source 7 7 [facility] Temperature 99 99 [facility] spital Respiratory Effort 1 1 [facility] Respiratory Rate 18 18 [facility] Pulse Assessment Method 4 4 [facility] Pulse Rate 81 81 [facility] pital Height (Calculated Centimeters) 165.1 165. 1 [facility] Height 65 65 [facility] pital Blood Pressure 123/81 123/81 [facility] Body Mass Index (BMI) [address] [facility] Weight (Calculated Kilograms) 57.42 57.42 [facility] Weight 2024.6 2024.6 [facility] pital Temperature Source 3 3 [facility] Temperature 98.4 98.4 [facility] spital Respiratory Effort 1 1 [facility] Respiratory Rate 20 20 [facility] Pulse Assessment Method 1 1 [facility] Pulse Rate 98 98 [facility] pital Height (Calculated Centimeters) 165.1 165. 1 [facility] Height 65 65 [facility] 160/113 160/113 [facility] Body Mass Index (BMI) 21.[address] [facility] Weight (Calculated Kilograms) 58.79 58.79 [facility] Height (Calculated Centimeters) 165.1 165. 1 [facility] Body Mass Index (BMI) 21.[address] [facility] ID Date Data Source [id number] 05/03/2019 12:15:00 PM EST [facility] Name Value Range Interpretation Code Description Data Source(s) Weight Measurement Method 1 1 [facility] Weight (Calculated Kilograms) 56.70 56.70 [facility] Weight 2120.0 2120.0 [facility] Temperature Source 7 7 [facility] Temperature 98.3 98.3 [facility] Respiratory Effort 1 1 [facility] Respiratory Rate 18 18 [facility] Pulse Assessment Method 4 4 [facility] Pulse Rate 87 87 [facility] Height (Calculated Centimeters) 165.1 165. 1 [facility] Height 65 65 [facility] Blood Pressure 97/70 97/70 [facility] Body Mass Index (BMI) 20.7 20.7 [facility] Weight Measurement Method 1 1 [facility] Weight (Calculated Kilograms) 56.70 56.70 [facility] Weight 2120.0 2120.0 [facility] Temperature Source 7 7 [facility] Temperature 98.3 98.3 [facility] Respiratory Effort 1 1 [facility] Respiratory Rate 18 18 [facility] Pulse Assessment Method 4 4 [facility] Pulse Rate 87 87 [facility] Height (Calculated Centimeters) 165.1 165. 1 [facility] Height 65 65 [facility] Blood Pressure 97/70 97/70 [facility] Body Mass Index (BMI) 20.7 20.7 [facility] Weight Measurement Method 1 1 [facility] Weight (Calculated Kilograms) 56.70 56.70 [facility] Weight 2120.0 2120.0 [facility] Temperature Source 7 7 [facility] Temperature 98.3 98.3 [facility] Respiratory Effort 1 1 [facility] Respiratory Rate 18 18 [facility] Pulse Assessment Method 4 4 [facility] Pulse Rate 87 87 [facility] Height (Calculated Centimeters) 165.1 165. 1 [facility] Height 65 65 [facility] Blood Pressure 97/70 97/70 [facility] Body Mass Index (BMI) 20.7 20.7 [facility] Weight Measurement Method 1 1 [facility] Weight (Calculated Kilograms) 56.70 56.70 [facility] Weight 1999 1999 [facility] Temperature Source 7 7 [facility] Temperature 98.0 98.0 [facility] Respiratory Effort 1 1 [facility] Respiratory Rate 16 16 [facility] Pulse Assessment Method 4 4 [facility] Pulse Rate 61 61 [facility] Height (Calculated Centimeters) 165.1 165. 1 [facility] Height 65 65 [facility] Blood Pressure 109/66 109/66 [facility] Body Mass Index (BMI) 20.7 20.7 [facility] Weight Measurement Method 1 1 [facility] Weight (Calculated Kilograms) 56.70 56.70 [facility] Weight 1999 1999 [facility] Temperature Source 3 3 [facility] Temperature 97.8 97.8 [facility] Respiratory Effort 1 1 [facility] Respiratory Rate 16 16 [facility] Pulse Assessment Method 4 4 [facility] Pulse Rate 64 64 [facility] Height (Calculated Centimeters) 165.1 165. 1 [facility] Height 65 65 [facility] Blood Pressure 139/77 139/77 [facility] Body Mass Index (BMI) 20.7 20.7 [facility] Weight (Calculated Kilograms) 58.51 58.51 [facility] Height (Calculated Centimeters) 165.1 165. 1 [facility] Body Mass Index (BMI) 21.4 21.4 [facility] ID Date Data Source [id number] 02/01/2020 12:13:00 AM EST [facility] Name Value Range Interpretation Code Description Data Source(s) Weight Measurement Method 1 1 [facility] Weight (Calculated Kilograms) 58.51 58.51 [facility] Weight 2128 2128 [facility] Temperature Source 7 7 [facility] Temperature 97.7 97.7 [facility] Respiratory Effort 1 1 [facility] Respiratory Rate 16 16 [facility] Pulse Assessment Method 4 4 [facility] Pulse Rate 70 70 [facility] Height (Calculated Centimeters) 165.1 165. 1 [facility] Height 65 65 [facility] Blood Pressure 105/74 105/74 [facility] Body Mass Index (BMI) 21.4 21.4 [facility] Weight Measurement Method 1 1 [facility] Weight (Calculated Kilograms) 58.51 58.51 [facility] Weight 2128 2128 [facility] Temperature Source 7 7 [facility] Temperature 97.7 97.7 [facility] Respiratory Effort 1 1 [facility] Respiratory Rate 16 16 [facility] Pulse Assessment Method 4 4 [facility] Pulse Rate 70 70 [facility] Height (Calculated Centimeters) 165.1 165. 1 [facility] Height 65 65 [facility] Blood Pressure 105/74 105/74 [facility] Body Mass Index (BMI) 21.4 21.4 [facility] Weight Measurement Method 1 1 [facility] Weight (Calculated Kilograms) 58.51 58.51 [facility] Weight 8 8 [facility] Temperature Source 7 7 [facility] Temperature 97.7 97.7 [facility] Respiratory Effort 1 1 [facility] Respiratory Rate 16 16 [facility] Pulse Assessment Method 4 4 [facility] Pulse Rate 70 70 [facility] Height (Calculated Centimeters) 165.1 165. 1 [facility] Height 65 65 [facility] Blood Pressure 105/74 105/74 [facility] Body Mass Index (BMI) 21.4 21.4 [facility] Weight Measurement Method 1 1 [facility] Weight (Calculated Kilograms) 58.51 58.51 [facility] Weight 2144.0 2144.0 [facility] Temperature Source 7 7 [facility] Temperature 96.8 96.8 [facility] Respiratory Effort 1 1 [facility] Respiratory Rate 15 15 [facility] Pulse Assessment Method 4 4 [facility] Pulse Rate 88 88 [facility] Height (Calculated Centimeters) 165.1 165. 1 [facility] Height 65 65 [facility] Blood Pressure 122/89 122/89 [facility] Body Mass Index (BMI) 21.4 21.4 [facility] Weight (Calculated Kilograms) 58.51 58.51 [facility] Weight 2063 2063 [facility] Temperature Source 7 7 [facility] Temperature 98.0 98.0 [facility] Respiratory Effort 1 1 [facility] Respiratory Rate 16 16 [facility] Pulse Assessment Method 4 4 [facility] Pulse Rate 69 69 [facility] Height (Calculated Centimeters) 165.1 165. 1 [facility] Height 65 65 [facility] Blood Pressure 118/79 118/79 [facility] Body Mass Index (BMI) 21.4 21.4 [facility]
--- OUTSIDE RECORDS SUMMARY | 2020-03-18 21:32 | CCD ---
Author Author [facility] Organization [facility] Address Unknown Phone Unavailable Support Name Relationship Address Phone Unknown, Unknown Next Of Kin [address] [facility] [address] [place] [address] REFUSED, R Next Of Kin Unknown Unavailable SANDRINE LEONE Next Of Kin [address] [place] [address] Sandrine Leone Next Of Kin Unknown Unavailable YESICA LEONE Next Of Kin [address] [facility] [address] [place] [address] Unavailable Scarlett Nova MD Next Of Kin [address] [place] [address] Katiana Rodríguez Next Of Kin [address] [place] [address] U Next Of Kin Unknown Unavailable SABINO MARIANO Next Of Kin [address] [place] [address] NETO COOPER Next Of Kin [address] [facility] [address] [place] [address] NAEEM MARTINEZ Next Of Kin [address] [facility], [facility] [address] [place] [address] UE Next Of Kin Unknown Unavailable A R SUPERIOR Next Of Kin [address] [place] [address] LA PAINT Next Of Kin [address] [place] [address] [address] SANDRINE STAFFORD Next Of Kin [address] [place] [address] BALJEET CRUZ [place] [address] ARS Next [place] Kin ? [place] [address] [place] [address] CONTACT, NO Next Of Kin Unknown Care Team Providers Care Geographic Information Scientist Name Role Phone Noy Hernandez MD Unavailable [...] Unavailable Hernandez, Noy Vinson MD Unavailable Unavailable Hernadnez, Noy Vinson MD Unavailable Unavailable Hernandez, Noy [...] Unavailable Unavailable SENDY BALDWIN MD Unavailable Unavailable Jyotsna Ledezma Unavailable Unavailable Katiana Rust INCLUSION SPECIAL EDUCATOR INCLUSION SPECIAL EDUCATOR Unavailable Unavailable Milan, M Jess SEAFOOD PROCESSOR Unavailable Unavailable Milan, M Jess SEAFOOD PROCESSOR Unavailable Unavailable Milan, M Jess SEAFOOD PROCESSOR Unavailable Unavailable Milan, M Jess SEAFOOD PROCESSOR Unavailable Unavailable Milan, M Jess SEAFOOD PROCESSOR Unavailable Unavailable Milan, M Jess SEAFOOD PROCESSOR Unavailable Unavailable Milan, M Jess SEAFOOD PROCESSOR Unavailable Unavailable Milan, M Jess SEAFOOD PROCESSOR Unavailable Unavailable Milan, M Jess SEAFOOD PROCESSOR Unavailable Unavailable Milan, M Jess SEAFOOD PROCESSOR Unavailable Unavailable Milan, M Jess SEAFOOD PROCESSOR Unavailable Unavailable Milan, M Jess SEAFOOD PROCESSOR Unavailable Unavailable Milan, M Jess SEAFOOD PROCESSOR Unavailable Unavailable Keely Alaniz Unavailable Skylar Baldwin MD Unavailable Unavailable JOHN GARDUNO MD Unavailable Unavailable JOHN GARDUNO MD Unavailable Unavailable JOHN GADRUNO MD Unavailable Unavailable JOHN GARDUNO MD Unavailable [...] Unavailable Unavailable JOHN GARDUNO MD Unavailable Unavailable OJHN GARDUNO MD Unavailable Unavailable JOHN GARDUNO MD Unavailable Unavailable JOHN GARDUNO MD Unavailable Unavailable RAYJOHN PICKARD MD Unavailable Unavailable RAYJOHN PICKARD MD Unavailable Unavailable RAYJOHN PICKARD MD Unavailable Unavailable RAYJOHN PICKARD MD Unavailable Unavailable Alina Marinelli MD Unavailable Unavailable Rosario BROWN MD Unavailable Unavailable BAPRosario MCBRIDE MD Unavailable Unavailable BAPANARosario MD Unavailable Unavailable BAPANARosario MD Unavailable Unavailable BAPANARosario MD Unavailable Unavailable BAPANARosario MD Unavailable Unavailable BAPRosario MCBRIDE MD Unavailable Unavailable BAPANARosario MD Unavailable Unavailable BAPANARosario MD Unavailable Unavailable BAPANA, Rosario EAST MD Unavailable Unavailable BAPANARosario MD Unavailable Unavailable BAPANA, Rosario EAST MD Unavailable Unavailable BAPANA, Rosario EAST MD Unavailable Unavailable BAPANA, Rosario EAST MD Unavailable Unavailable BAPANA, Rosario EAST MD Unavailable Unavailable Cawood, Willam DO Unavailable Unavailable Cawood, Willam DO Unavailable Unavailable Cawood, Willam DO Unavailable Unavailable Cawood, Willam DO Unavailable Unavailable Rafa, Willam DO [...] Unavailable Unavailable Jovan Mendez MD Unavailable Unavailable Jovan Mendez MD Unavailable Unavailable VanessaJovan nicholas MD Unavailable Unavailable Franco Multani MD Unavailable Unavailable Althouse, Annia SEAFOOD PROCESSOR Unavailable Unavailable Ade Cardona MD Unavailable Unavailable DOTZLER DO SARANYA Unavailable Unavailable Alina Marinelli MD Unavailable [...] Unavailable Unavailable Josh Pemberton MD Unavailable Unavailable Johs Pemberton MD Unavailable Unavailable Josh Pemberton MD [...] JOSHUA, Rebeca PANTOJA MD Unavailable Unavailable JOSHUA, eRbeca PANTOJA MD Unavailable Unavailable JOSHUA, Rebeca PANTOJA [...] Unavailable Unavailable Alina Marinelli MD Unavailable Unavailable Felton, Joseph Linda MD Unavailable Unavaila ble Felton, Joseph Linda MD Unavailable Unavaila ble Felton, Joseph Linda MD Unavailable Unavaila ble Jessica, Joseph Linda MD Unavailable Unavaila ble Felton, Joseph Linda MD Unavailable Unavaila ble Felton, Joseph Linda MD Unavailable Unavaila ble Felton, Joseph Linda MD Unavailable Unavaila ble Jessica, Joseph Linda MD Unavailable Unavaila ble Felton, Joseph Linda MD Unavailable Unavaila ble Jessica, Joseph Linda MD Unavailable Unavaila ble Felton, Joseph Linda MD Unavailable Unavaila ble Re-disclosure [...] is protected by Article 27-F of the [facility] Public Health law. If you continue you may have access to information: Regarding HIV / AIDS; Provided by facilities licensed or operated by the [facility] Office of Mental Health; or Provided by the [facility] Office for People With Developmental Disabilities. If such information is present, then the following [facility] mandated warning applies: This information has been [...] law may result in a fine or usp sentence or both. A general authorization for the release of medical or other information is NOT sufficient authorization for further disc losure. Allergies and Adverse Reactions Type Description Substance Reaction Status Data Source(s ) Drug allergy Drug allergy No Known Allergies [facility] Drug allergy No Known Allergies No Known Allergies [facility] SYSTEMIC NO KNOWN ALLERGIES NO KNOWN ALLERGIES [facility] Drug Class NO KNOWN ALLERGIES NO KNOWN ALLERGIES [facility] SYSTEMIC NO KNOWN ALLERGIES NO KNOWN ALLERGIES [facility] SYSTEMIC NO ALLERGIES ON FILE NO ALLERGIES ON FILE [facility] Family History Family Member Name Family Member Gender Family Member Status Date o f Status Description Data Source(s) Unknown Unknown Problem [facility] Encounters Encounter Providers Location Date Indications Data Source(s ) Outpatient Attender: Odilon Massey DO CPSCAORT-COVVACCPH 11:36:00 AM EST 1ST COVID VACCINE [facility] 1ST COVID VACCINE Inpatient Attender: SENDY Fierro nder: Sendy Baldwin MDAdmitter: Sendy Baldwin MD CPSCAORT-CHEPPDREH 02/24/2020 04:22:00 PM EST PSYCHOACTIVE SUBSTANCE DEPENDENCE [facility] PSYCHOACTIVE SUBSTANCE DEPENDENCE Patient admitted. Unlisted evaluation and management service 02/03 03:30:00 PM EST [facility] ([facility]) Outpatient Attender: Franco Colon MDAdmit ter: Franco Colon MDConsultant: Franco Colon 02/16/2020 07:07:00 PM EST SI with Attempt-R45.8 [facility] SI with Attempt-R45.851 Outpatient Attender: Annia Gonsalez PAdmitter: Franco Colon MDConsultant: Franco Colon 02/16/2020 07:07:00 PM EST SI with Attempt-R45.8 [facility] SI with Attempt-R45.851 Inpatient Attender: Franco Colon MDAdmitter: Franco Colon 02/16/2020 07:07:00 PM EST - 02/24/2020 01:20:00 PM EST SI with Attempt-R45.851 [facility] SI with Attempt-R45.851 Patient discharged. Outpatient Attender: Franco Colon MDAdmit ter: Franco Colon MDConsultant: Franco Colon 02/16/2020 07:07:00 PM EST SI with Attempt-R45.8 [facility] SI with Attempt-R45.851 Outpatient Attender: Franco Colon MDAdmit ter: Franco Colon MDConsultant: Franco Colon 02/16/2020 07:07:00 PM EST SI with Attempt-R45.8 [facility] SI with Attempt-R45.851 Outpatient Attender: Annia Dela Cruzmitter: Franco Colon MDConsultant: Franco Colon 02/16/2020 07:07:00 PM EST SI with Attempt-R45.8 [facility] SI with Attempt-R45.851 Outpatient Attender: Annia Gonsalez PAdmitter: Franco Colon MDConsultant: Franco Colon 02/16/2020 07:07:00 PM EST SI with Attempt-R45.8 [facility] SI with Attempt-R45.851 Outpatient Attender: Annia Gonsalez PAdmitter: Franco Colon MDConsultant: Franco Colon 02/16/2020 07:07:00 PM EST SI with Attempt-R45.8 [facility] SI with Attempt-R45.851 Outpatient Attender: Jess Mccormick mitter: Franco Colon MDConsultant: Franco Multani MD 02/16/2020 07:07:00 PM EST SI with Attempt-R45.8 [facility] SI with Attempt-R45.851 Outpatient Attender: Annia Gonsalez PAdmitter: Franco Multani MDConsultant: Franco Multani MD 02/16/2020 07:07:00 PM EST SI with Attempt-R45.8 [facility] SI with Attempt-R45.851 Extended Individual Psychotherapy - 45 min Attender: Cortney Alaniz [facility] 02/11/2020 01:00:00 AM EST - 02/11/2020 01:00:00 AM EST [facility] ([facility]) Attender: Keely Alaniz 02/11/2020 12:00:00 AM EST [facility] ([facility]) Unlisted evaluation and management service 05/2019 05:00:00 PM EST NETSMART ([facility]) Unlisted evaluation and management service Performer: Geovanni alberts 01/02/2020 03:42:00 PM EDT - 01/08/2020 01:10:00 PM EST [facility]SM[facility] ([facility]) IP PSYCH Attender: JOHN GARDUNO MD Attender: SARANYA SAMUELS DOAdmitter: JOHN GARDUNO MD 2E-2A 12/30/2019 09:01:33 PM EDT - 01/03/2020 01:15:00 PM EDT [facility] Patient discharged. Outpatient 12/30/2019 03:25:00 PM EDT depressio n, suicidal ideations [facility] depression, suicidal ideations Outpatient Attender: Reg Pemberton MD 12/17/2019 11:10:01 AM EDT [facility] Outpatient CPSCAORT-LABEJN 11/20/2019 03:16:00 PM EDT [facility] Outpatient Attender: Reg Pemberton MD FP 11/19/2019 09:59:02 AM EDT [facility] Outpatient Attender: Reg Pemberton MD 11/18/2019 12:57:00 PM EDT [facility] Outpatient CPSCAORT-LABEJN 11/16/2019 02:33:00 PM EDT [facility] Inpatient Attender: Demetrius Arango snehal: Cabrera Marinelli MDAttender: Cabrera Marinelli MDAdmitter: Demetrius Marinelli MD ED-MSP 11/16/2019 01:25:00 PM EDT - 11/24/2019 11:43:00 AM EDT F19.20 F10.20 [facility] F19.20 F10.20 Patient discharged. Unlisted evaluation and management service 11/15/2019 05:44:00 PM EDT - 11/16/2019 01:47:00 PM EDT [facility]) Outpatient [id number] 11/11/2019 08:22:00 PM EDT S uicidal with a plan to cut wrist. Hx depression. [facility] Suicidal with a plan to cut wrist. Hx d epression. Inpatient Attender: Diana Cardona MDAttender: Diana Cardona MDAttender: Willam Craig DOAdmitter: Diana Cardona MD CPSCAORT-OBSERV 09/25/2019 12:11:00 PM EDT - 09/26/2019 02:31:00 PM EDT OPIOID DEPENDENCE WITHDRAWAL [facility] OPIOID DEPENDENCE WITHDRAWAL Patient discharged. Inpatient Attender: Sendy Fierro nder: SENDY BALDWIN MDAdmitter: SENDY BALDWIN MD CPSCAORT-CHEPPDREH 09/19/2019 01:24:00 PM EDT - 09/25/2019 10:10:00 AM EDT PSYCHOACTIVE SUBSTANCE DEPENDENCE [facility] PSYCHOACTIVE SUBSTANCE DEPENDENCE Patient discharged. Outpatient CPSCAORT-LABEJWallace 09/12/2019 12:42:00 PM EDT [facility] Outpatient CPSCAORT-LABEJN 09/11/2019 09:34:00 AM EDT [facility] Inpatient Attender: EDPAKO BOBO DOAdmitter: LORI Gonsalez DO ED-MSP 09/10/2019 09:25:00 PM EDT - 09/14/2019 11:14:00 AM EDT F19.20 [facility] F19.20 Patient discharged. Outpatient Attender: MARKEL WEST 08/13/2019 09:07:01 AM EDT [facility] Outpatient Attender: MARKEL WEST 07/19/2019 08:38:00 AM EDT [facility] Outpatient Attender: MARKEL WEST 07/18/2019 03:27:01 PM EDT [facility] Outpatient Attender: MARKEL JEAN BAPTISTE FP 07/12/2019 03:12:00 PM EDT [facility] Outpatient Attender: MARKEL JEAN BAPTISTE FP 07/11/2019 11:20:01 AM EDT [facility] Outpatient Attender: SCARLETT NOVA MD FP 07/11/2019 10:05:01 A M EDT [facility] Outpatient Attender: SCARLETT NOVA MD FP 06/13/2019 03:50:00 P M EDT [facility] Outpatient Attender: SCARLETT NOVA MD FP 05/20/2019 09:42:00 A M EDT [facility] Outpatient Attender: SCARLETT NOVA MD FP 05/16/2019 12:42:00 P M EDT [facility] Outpatient Attender: SCARLETT NOVA MD 05/16/2019 12:41:02 P M EDT [facility] Outpatient Attender: SCARLETT NOVA MD 05/10/2019 12:48:00 P M [facility] Outpatient Attender: SCARLETT NOVA MD 05/10/2019 10:31:02 A M [facility] IP PSYCH Attender: Alexei moreno MDAdmitter: Alexei Lopez MDConsultant: Jovan Mendez MD 5F-PY 05/09/2019 07:54:18 P M EST - 05/13/2019 01:01:00 PM EDT [facility] Patient discharged. 05/09/2019 03:51:50 PM [facility] 05/09/2019 10:58:03 AM [facility] 05/09/2019 10:51:36 AM [facility] 05/09/2019 10:50:14 AM [facility] 05/09/2019 10:48:20 AM [facility] Emergency Attender: CRUZITO BROWN MD 2E-ED 07/2019 10:08:05 AM EST - 05/09/2019 07:43:00 PM [facility] Patient discharged. 05/09/2019 10:07:12 AM [facility] Outpatient Attender: SCARLETT NOVA MD 05/02/2019 10:46:01 A [facility] Outpatient Attender: SCARLETT NOVA MD 04/30/2019 03:24:00 P [facility] Outpatient Attender: SCARLETT NOVA MD 04/15/2019 10:34:00 A [facility] Outpatient Attender: SCARLETT NOVA MD 04/09/2019 12:33:01 P [facility] Outpatient Attender: SCARLETT NOVA MD 04/03/2019 10:05:01 A [facility] Outpatient Attender: SCARLETT NOVA MD 04/01/2019 01:51:06 P [facility] Outpatient Referrer: Karel Hernandez MD 04/01/2019 12:31:00 PM [facility] Inpatient Attender: Sendy Fierro nder: SENDY BALDWIN MDAdmitter: SENDY BALDWIN MD CPSCAORT-CHEPPDREH 04/01/2019 10:35:00 AM [facility] - 04/29/2019 09:13:00 AM [facility] PSYCHOACTIVE SUBSTANCE DEPENDENCE [facility] PSYCHOACTIVE SUBSTANCE DEPENDENCE Patient discharged. Outpatient Attender: SCARLETT NOVA MD 03/29/2019 01:58:00 P [facility] Outpatient Attender: SCARLETT NOVA MD 03/29/2019 10:08:01 A [facility] Outpatient Attender: SCARLETT NOVA MD 03/21/2019 10:22:01 A [facility] Outpatient Attender: SCARLETT NOVA MD 03/20/2019 12:47:01 P [facility] Outpatient Attender: SCARLETT NOVA MD 03/20/2019 12:46:01 P [facility] Outpatient Attender: SCARLETT NOVA MD 03/20/2019 12:45:01 P [facility] Outpatient Attender: SCARLETT NOVA MD 03/20/2019 10:44:00 A [facility] Outpatient Attender: SCARLETT NOVA MD 03/20/2019 10:22:00 A [facility] Outpatient Attender: SCARLETT NOVA MD 03/20/2019 10:21:00 A [facility] Outpatient Attender: SCARLETT NOVA MD 03/20/2019 10:20:00 A [facility] Outpatient Attender: SCARLETT NOVA MD 02/20/2019 01:33:00 P [facility] Outpatient Attender: SCARLETT NOVA MD 02/18/2019 04:04:59 A [facility] Outpatient Attender: SCARLETT NOVA MD 02/15/2019 05:02:00 P [facility] Outpatient Attender: SCARLETT NOVA MD 02/13/2019 11:20:00 A [facility] Outpatient Attender: SCARLETT NOVA MD 02/11/2019 01:46:01 P [facility] Outpatient Attender: SCARLETT NOVA MD 02/10/2019 08:32:01 P [facility] Outpatient Attender: SCARLETT NOVA MD 02/08/2019 11:19:01 A [facility] Outpatient Attender: SCARLETT NOVA MD 02/08/2019 11:18:01 A [facility] Outpatient Attender: SCARLETT NOVA MD 02/01/2019 09:43:02 A [facility] Outpatient Attender: SCARLETT NOVA MD 01/28/2019 09:01:01 A [facility] Outpatient Attender: SCARLETT NOVA MD 01/22/2019 08:57:03 A [facility] Inpatient Attender: Sendy Baldwin MDAtte nder: SENDY BALDWIN MDAdmitter: SENDY BALDWIN MD CPSCAORT-CHEPPDREH 01/10/2019 09:55:00 AM [facility] - 01/31/2019 07:30:00 AM [facility] PSYCHOACTIVE SUBSTANCE DEPENDENCE [facility] PSYCHOACTIVE SUBSTANCE DEPENDENCE Patient discharged. Medications Medication [...] relationship to cassidy Policy Cassidy Plan Information [facility] [id number] SP [id number] [facility] [address] [id number] Unemploye d [id number] [facility] [id number] SP [id number] SELF PAY [facility] COMMUNITY PLAN [id number] SP [id number] [facility] [id number] SP [id number] [facility] [id number] SP [id number] [facility] [id number] SP [id number] EMEDNY [id number] SP [id number] [facility] PL [id number] S [id number] [facility] [id number] Self [id number] [facility] OFFICE OF MENTAL HEALTH [id number] Self [id number] [facility] [id number] SP [id number] [facility] I [id number] Self [id number] [facility] PL [id number] S [id number] Medicaid S [id number] Managed Care - UHC Community Plan P [id number] S [id number] [facility] [id number] S [id number] [facility] MEDICAID [id number] Self [id number] [facility] [id number] Unemploye d [id number] [facility] [id number] Unemplo yed [id number] [facility] [id number] S [id number] MEDICAID [id number] Unemployed [id number] [facility](MCA[facility]) O [id number] S [id number] Medicaid S [id number] S [id number] Managed Care - UHC Community Plan P [id number] S [id number] Managed Care - UHC Community Plan P [id number] S [id number] Managed Care - UHC Community Plan P [id number] S [id number] Medicaid S [id number] UNHC COMMUNITY PLAN XIX [id number] 18 [id number] UNHC COMMUNITY PLAN XIX [id number] 18 [id number] MEDICAID [id number] SP [id number] UHC I [id number] Self [id number] UHC I [id number] Self [id number] Managed Care - Community Plan United Healthcare P [id number] S [id number] UNHC COMMUNITY PLAN MCDHMO [id number] SP [id number] COMMERCIAL MISC [id number] Patient [id number] [facility] MEDICARE PPO [id number] Patient [id number] JANET [id number] SP [id number] JANET CARE [id number] S [id number] [place] [id number] SP [id number] MEDICAID [id number] SP [id number] [facility] [place] [id number] S [id number] Managed Care - Community Plan United Healthcare P [id number] S [id number] [facility] [id number] SP [id number] [facility] [place] [id number] SP [id number] [facility](MCAID) O [id number] S [id number] [facility] [place] [id number] S [id number] Medicaid S [id number] S [id number] Managed Care - Community Plan United Healthcare P [id number] S [id number] UNHC COMMUNITY PLAN MCDHMO [id number] SP [id number] [place]) Workers Compensation [id number] [facility] Community Plan Commercial [id number] Self [id number] [place]) Workers Compensation [id number] [facility] Community Plan Commercial [id number] Self [id number] SELF PAY ONLY UNAVAILABLE UNAV AILABLE [place] INSURANCE O [id number] O [id number] 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 [id number] SP [id number] [employer] UNAVAILABLE SP UNAVAILABLE 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 [id number] SP [id number] [place] INSURANCE O [id number] O [id number] O UNAVAILABLE UNAVAILA B[place] O [id number] O [id number] [place]) Workers Compensation [id number] Medicaid [place] Medigap Part B [id number] Self [id number] [facility] Health Maintenance Organization (HMO) [id number] Self [id number] Medicaid [place] Medicaid Self [facility]CAID) O [id number] S [id number] MEDICAID M [id number] S [id number] Problems, Conditions, and Diagnoses Code Display Name Description Problem Type Effective Dates Data Source(s) USER-Addiction Addiction/Abstinence/Withdrawal Addiction/Abstin ence/Withdrawal Complaint 01/09/2020 12:00:00 PM EST [facility] ([facility]) USER-Family Family Family Complaint 01/07/2020 12:00:[address] [facility] ([facility]) USER-Social Social/Interpersonal/Recovery Environmen t Social/Interpersonal/Recovery Environment Complaint 01/07/2020 12:00:0 0 PM EST [facility] ([facility]) USER-Emotional Emotional/Behavioral/State of Change Emo tional/Behavioral/State of Change Complaint 01/07/2020 12:00:00 PM EST [facility] ([facility]) USER-Biomedical Biomedical Biomedical Complaint 01/07/2020 12:00:00 PM EST [facility] ([facility]) 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 Complain t 01/07/2020 12:00:00 PM EST [facility] ([facility]) Z13.9 Encounter for screening, unspecified Z13 .9 - Encounter for screening, unspecified Diagnosis 02/16/2020 07:07:00 PM EST [facility] F17.200 Nicotine dependence, unspecified, uncomp licated F17.200 - Nicotine dependence, unspecified, uncomplicated Diagnosis 02/16/2020 07:07:00 P M EST [facility] F11.99 Opioid use, unspecified with unspecified opioid-induced disorder F11.99 - Opioid use, unspecified with unspecified opioid-induced disorder Diagnosis 02/16/2020 07:07:00 PM EST [facility] F15.90 Other stimulant use, unspecified, uncomp licated F15.90 - Other stimulant use, unspecified, uncomplicated Diagnosis 02/16/2020 07:07:00 PM EST [facility] F41.0 Panic disorder [episodic paroxysmal anxi ety] F41.0 - Panic disorder [episodic paroxysmal anxiety] Diagnosis 02/16/2020 07:07:00 PM EST [facility] F31.4 Bipolar disorder, current ep isode depressed, severe, without psychotic features F31.4 - Bipolar disorder, current episod e depressed, severe, without psychotic features Diagnosis 02/16/2020 07:07:00 PM [facility] F29 Unspecified psychosis not du e to a substance or known physiological condition Unspecified psychosis not due to a subst ance or known physiological condition Diagnosis 01/03/2020 11:07:37 AM EDT [facility] EMS Diagnosis 12/30/2019 09:01:33 PM ED T [facility] depression, suicidal ideations depression, suicidal id eations Diagnosis 12/30/2019 03:25:00 PM [facility] K21.0 Gastro-esophageal reflux disease with es ophagitis GASTRO-ESOPHAGEAL REFLUX DISEASE WITH ESOPHAGITIS Diagnosis 11/16/2019 01:25:00 PM EDT [facility] F13.20 Sedative, hypnotic or anxiolytic depende nce, uncomplicated SEDATIVE, HYPNOTIC OR ANXIOLYTIC DEPENDENCE, UNCOMPLICATED Diagnosis 11/15 01:25:00 PM EDT [facility] L29.9 Pruritus, unspecified PRURITUS, UNSPECIFIED Diagnosis 11/16/2019 01:25:00 PM EDT [facility] J44.9 Chronic obstructive pulmonary disease, u nspecified CHRONIC OBSTRUCTIVE PULMONARY DISEASE, UNSPECIFIED Diagnosis 11/16/2019 01:25:[address] [facility] F31.9 Bipolar disorder, unspecified BIPOLAR DISORDER, UNSPEC IFIED Diagnosis 11/16/2019 01:25:00 PM EDT [facility] K27.9 Peptic ulcer, site unspecifi ed, unspecified as acute or chronic, without hemorrhage or perforation PEPTIC ULC, SITE UNSP, UNSP AC OR CHR , W/O HEMOR OR PERF Diagnosis 11/16/2019 01:25:00 PM EDT [facility] B18.2 Chronic viral hepatitis C CHRONIC VIRAL HEPATITIS C Di agnosis 11/16/2019 01:25:00 PM EDT [facility] F15.20 Other stimulant dependence, uncomplicate d OTHER STIMULANT DEPENDENCE, UNCOMPLICATED Diagnosis 11/16/2019 01:25:00 PM [facility] F17.210 Nicotine dependence, cigarettes, uncompl icated NICOTINE DEPENDENCE, CIGARETTES, UNCOMPLICATED Diagnosis 11/16/2019 01:25:00 PM EDT [facility] F11.23 Opioid dependence with withdrawal OPIOID DEPENDE NCE WITH WITHDRAWAL Diagnosis 11/16/2019 01:25:00 PM EDT [facility] F10.230 Alcohol dependence with withdrawal, unco mplicated ALCOHOL DEPENDENCE WITH WITHDRAWAL, UNCOMPLICATED Diagnosis 11/16/2019 01:25:[address] [facility] Suicidal with a plan to cut wrist. Hx d epression. Suicidal with a plan to cut wrist. Hx depression. Diagnosis 11/11/2019 08:22:00 PM EDT [facility] E55.9 Vitamin D deficiency, unspecified VITAMIN D DEFI CIENCY, UNSPECIFIED Diagnosis 09/19/2019 01:24:00 PM EDT [facility] R45.851 Suicidal ideations SUICIDAL IDEATIONS Diagnosis 01:24:00 PM EDT [facility] J30.2 Other seasonal allergic rhinitis OTHER SEASONAL ALLERGIC RHINITIS Diagnosis 09/19/2019 01:24:00 PM EDT [facility] F10.11 Alcohol abuse, in remission ALCOHOL ABUSE, IN REMISSIO N Diagnosis 09/19/2019 01:24:00 PM EDT [facility] F19.11 Other psychoactive substance abuse, in r emission OTHER PSYCHOACTIVE SUBSTANCE ABUSE, IN REMISSION Diagnosis 09/19/2019 01:24:00 PM EDT [facility] F12.21 Cannabis dependence, in remission CANNABIS DEPEN DENCE, IN REMISSION Diagnosis 09/19/2019 01:24:00 PM EDT [facility] F14.11 Cocaine abuse, in remission COCAINE ABUSE, IN REMISSIO N Diagnosis 09/19/2019 01:24:00 PM EDT [facility] 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, uncomplicated H ALLUCINOGEN DEPENDENCE, UNCOMPLICATED Diagnosis 09/19/2019 01:24:00 PM EDT [facility] M79.631 Pain in right forearm PAIN IN RIGHT FOREARM Diagnosis 09/10/2019 09:25:00 PM [facility] N40.0 Benign prostatic hyperplasia without low er urinary tract symptoms BENIGN PROSTATIC HYPERPLASIA WITHOUT LOWER URINRY TRACT SYMP Diagnosis 09/10/2019 09:25:00 PM [facility] F41.9 Anxiety disorder, unspecified ANXIETY DISORDER, UNSPEC IFIED Diagnosis 09/10/2019 09:25:00 PM [facility] K21.9 Gastro-esophageal reflux disease without esophagitis GASTRO-ESOPHAGEAL REFLUX DISEASE WITHOUT ESOPHAGITIS Diagnosis 09/10/2019 09:25:[address] 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 OTH BEHAV/EMOTN DISORD W ONSET USLY OCCU R IN CHLDHD AND ADOL Diagnosis 04/01/2019 10:35:00 AM [facility] Z68.22 Body mass index (BMI) 22.0-22.9, adult B FRANSICO MASS INDEX (BMI) 22.0-22.9, ADULT Diagnosis 04/01/2019 10:35:00 AM EST [facility] R64 Cachexia CACHEXIA Diagnosis 04/01/2019 10:35:00 AM [facility] Surgeries/Procedures Procedure Description Date Indications Data Source(s) Extended Individual Psychotherapy - 45 min 02/11/2020 12:00:00 AM EST - 02/11/2020 12:00:00 AM EST [facility] ([facility]) Extended Individual Psychotherapy - 45 min 0 12:00:00 AM EST [facility] ([facility]) Medication Management for Substance Abuse Treatment, N aloxone MEDS MGMT FOR SUBSTANCE ABUSE TREATMENT, NALOXONE 11/20/2019 12:00:00 AM [facility] Measurement of Cardiac Electrical Activity, External A pproach MEASUREMENT OF CARDIAC ELECTRICAL ACTIVITY, MANUFACTURING COST ESTIMATOR APPROACH 11/19/2019 12:00:00 AM [facility] Individual Counseling for Substance Abuse Treatment, C ontinuing Care INDIV SUPERVISOR PRODUCTION DEPARTMENT FOR SUBSTANCE ABUSE TREATMENT, CONTINUING CARE 11/17/2019 12:00:00 AM [facility] Detoxification Services for Substance Abuse Treatment DETOXIFICATION SERVICES FOR SUBSTANCE ABUSE TREATMENT 11/17/2019 12:00:00 AM [facility] ECG ROUTINE ECG W/LEAST 12 LDS TRCG ONLY W/O I&R ELECTROCARD IOGRAM TRACING 09/25/2019 12:00:00 AM [facility] URNLS DIP STICK/TABLET RGNT AUTO W/O MICROSCOPY URINALYSIS A UTO W/O SCOPE 09/25/2019 12:00:00 AM [facility] BLOOD COUNT COMPLETE AUTO&AUTO DIFRNTL WBC COUNT COMPLETE CB C W/AUTO DIFF WBC 09/25/2019 12:00:00 AM [facility] 10882 DRUG SCREEN QUANTALCOHOLS 09/25/2019 12:00:00 AM [facility] 34449 DRUG TEST PRSMV CHEM ANLYZR 09/25/2019 12:00:00 AM [facility] 11609 ANALGESICS NON-OPIOID 1 OR 2 09/25/2019 12:00:00 AM [facility] COMPREHENSIVE METABOLIC PANEL COMPREHEN METABOLIC PANEL 09/04 12:00:00 AM EDT [facility] Buprenorphine/naloxone, oral, greater th an 6 mg, but less than or equal to 10 mg 09/25/2019 12:00:00 AM EDT [facility] Non-covered item or service NON-COVERED ITEM OR SERVICE 09/04 12:00:00 AM EDT [facility] EMERGENCY DEPT VISIT HIGH SEVERITY&THREAT FUNCJ EMERGENCY DE PT VISIT 09/25/2019 12:00:00 AM EDT [facility] Hospital observation service, per hour 09/25/2019 12:0 0:00 AM EDT [facility] Ultrasonography of Right Upper Extremity Veins ULTRASO NOGRAPHY OF RIGHT UPPER EXTREMITY VEINS 09/11/2019 12:00:00 AM EDT [facility] spital Individual Counseling for Substance Abuse Treatment, C ognitive-Behavioral INDIV SUPERVISOR PRODUCTION DEPARTMENT FOR SUBSTANCE ABUSE, COGNITIVE BEHAVIORAL 09/11/2019 12:00:00 AM [facility] Results ID Date Data Source [id number] 03/11/2020 11:52:00 AM EST [facility] Name Value Range Interpretation Code Description Data Milena rce(s) Supporting Document(s) Sodium 139 mmol/L 137-145 Normal (applies to non-numeric resul ts) [facility] Potassium 3.5-5.1 Normal (applies to non-numeric resul ts) [facility] Chloride 106 mmol/L 98-112 Normal (applies to non-numeric resul ts) [facility] Carbon Dioxide CO2 22.0-33.0 Normal (applies to non-numer ic results) [facility] Anion Gap 4.0-11.0 Below low normal [facility] BUN 15 mg/dL 9-20 Normal (applies to non-numeric resul ts) [facility] Creatinine 0.80-1.50 Normal (applies to non-numeric resul ts) [facility] GFR 72 mL/min >60 Normal (applies to non-numeric resul ts) [facility] Result based on MDRD formula. Glucose Level 93 mg/dL 74-99 Normal (applies to non-numeric re sults) [facility] The reference range is only applicable w hen fasting. Calcium-Uncorrected 8.4-10.2 Normal (applies to non-nume courtney results) [facility] Corrected Calcium 8.4-10.2 Normal (applies to non-numeri c results) [facility] Bilirubin,Total 0.2-1.3 Normal (applies to non-numeric results) [facility] SGOT(AST) 90 U/L 17-59 Above high normal [facility] SGPT(ALT) 203 U/L 21-72 Above high normal [facility] Alkaline Phosphatase 83 U/L 38-126 Normal (applies to non-num giles results) [facility] can increase Alkaline Phosp le vels up to 2 times the normal adult value. Normal values for children and adolescents are 2 to 3 times the normal adult value. Total Protein 6.3-8.2 Normal (applies to non-numeric re sults) [facility] Albumin 3.5-5.0 Below low normal [facility] ID Date Data Source [id number] 03/03/2020 05:58:00 PM EST [facility] Name: RIVERA LEONE : 1970 A ge/Sex: 49M Ordering Provider: MARKEL Templeton Med Rec #: [id number] Reg Status: ADM IN Room #: 130-2 Date of Service: 03/03/20 Report Number: [id number] cc:MARKEL Templeton Send Report To: [id number] US/US Carotids w Duplex (Doppler) Reason for [...] Date/Time: 03/03/20 0943 Transcribed Date/Time: 03/03/20 1758 Director Of Pulmonary Unit: JEANIE Name Value Range Interpretation Code Description Data Milena rce(s) Supporting Document(s) ID Date Data Source [id number] 03/02/2020 10:36:00 AM EST [facility] Name Value Range Interpretation Code Description Data Milena rce(s) Supporting Document(s) Sodium 139 mmol/L 137-145 Normal (applies to non-numeric resul ts) [facility] Potassium 3.5-5.1 Normal (applies to non-numeric resul ts) [facility] Chloride 106 mmol/L 98-112 Normal (applies to non-numeric resul ts) [facility] Carbon Dioxide CO2 22.0-33.0 Normal (applies to non-numer ic results) [facility] Anion Gap 4.0-11.0 Below low normal [facility] BUN 15 mg/dL 9-20 Normal (applies to non-numeric resul ts) [facility] Creatinine 0.80-1.50 Normal (applies to non-numeric resul ts) [facility] GFR 77 mL/min >60 Normal (applies to non-numeric resul ts) [facility] Result based on MDRD formula. Glucose Level 90 mg/dL 74-99 Normal (applies to non-numeric re sults) [facility] The reference range is only applicable w hen fasting. Calcium-Uncorrected 8.4-10.2 Normal (applies to non-nume courtney results) [facility] Corrected Calcium 8.4-10.2 Normal (applies to non-numeri c results) [facility] Bilirubin,Total 0.2-1.3 Normal (applies to non-numeric results) [facility] SGOT(AST) 96 U/L 17-59 Above high normal [facility] SGPT(ALT) 208 U/L 21-72 Above high normal [facility] Alkaline Phosphatase 82 U/L 38-126 Normal (applies to non-num giles results) [facility] can increase Alkaline Phosp le vels up to 2 times the normal adult value. Normal values for children and adolescents are 2 to 3 times the normal adult value. Total Protein 6.3-8.2 Normal (applies to non-numeric re sults) [facility] Albumin 3.5-5.0 Below low normal [facility] ID Date Data Source [id number] 03/03/2020 01:11:00 PM EST [facility] Name: RIVERA LEONE : 1970 A ge/Sex: 49M Ordering Provider: MARKEL Templeton Med Rec #: [id number] Reg Status:ADM IN Room #: 130-2 Date of Service: 03/02/20 Report Number: [id number] cc: MARKEL Templeton; Sendy Baldwin MD Send Report To: Reason for exam: chest pressure 3 days ago and c/o ongoing dizziniess SINUS RHYTHM NORMAL ECG Physician Overhead Door Technician: Dr. Hunter Tolbert M.D. ECG HEART RATE: 74 /min ECG RR INTERVAL: 804 ms ECG P DURATION: 86 ms ECG QRS DURATION: 89 ms ECG MD INTERVAL: 137 ms ECG QT INTERVAL: 370 ms ECG QTC INTERVAL: 394 ms Q-T dispersion: ms ECG P AXIS: 73 deg ECG QRS AXIS: -4 deg ECG T AXIS: 68 deg REPORT SIGNATURE ON FILE 03/03/201310 Reported By: Hunter Tolbert MD <<Signature on File>> Exam Date/Time: 03/03/2025 Order #: [id number] Dictation Date/Time: 03/03/201310 Transcribed Date/Time: 03/03/201310 Director Of Pulmonary Unit: ADRIAN Santacruz Value Range Interpretation Code Description Data Milena rce(s) Supporting Document(s) ID Date Data Source [id number] 02/25/2020 01:08:00 PM [facility] Name Value Range Interpretation Code Description Data Milena rce(s) Supporting Document(s) C-Reactive Protein,Wide Range <3.00 Above high normal [facility] ID Date Data Source [id number] 02/25/2020 01:08:00 PM [facility] Name Value Range Interpretation Code Description Data Milena rce(s) Supporting Document(s) Magnesium 1.80-2.40 Normal (applies to non-numeric resul ts) [facility] ID Date Data Source [id number] 02/25/2020 01:08:00 PM [facility] Name Value Range Interpretation Code Description Data Milena rce(s) Supporting Document(s) Sodium 140 mmol/L 137-145 Normal (applies to non-numeric resul ts) [facility] Potassium 3.5-5.1 Normal (applies to non-numeric resul ts) [facility] Chloride 106 mmol/L 98-112 Normal (applies to non-numeric resul ts) [facility] Carbon Dioxide CO2 22.0-33.0 Normal (applies to non-numer ic results) [facility] Anion Gap 4.0-11.0 Normal (applies to non-numeric resul ts) [facility] BUN 16 mg/dL 9-20 Normal (applies to non-numeric resul ts) [facility] Creatinine 0.80-1.50 Normal (applies to non-numeric resul ts) [facility] GFR 86 mL/min >60 Normal (applies to non-numeric resul ts) [facility] Result based on MDRD formula. Glucose Level 104 mg/dL 74-99 Above high normal [facility] The reference range is only applicable w hen fasting. Calcium-Uncorrected 8.4-10.2 Normal (applies to non-nume courtney results) [facility] Corrected Calcium 8.4-10.2 Normal (applies to non-numeri c results) [facility] Bilirubin,Total 0.2-1.3 Normal (applies to non-numeric results) [facility] Bilirubin,Direct 0.0-0.3 Normal (applies to non-numeric results) [facility] SGOT(AST) 90 U/L 17-59 Above high normal [facility] SGPT(ALT) 190 U/L 21-72 Above high normal [facility] Alkaline Phosphatase 85 U/L 38-126 Normal (applies to non-num giles results) [facility] can increase Alkaline Phosp le vels up to 2 times the normal adult value. Normal values for children and adolescents are 2 to 3 times the normal adult value. CPK 157 U/L 39-308 Normal (applies to non-numeric resul ts) [facility] Total Protein 6.3-8.2 Normal (applies to non-numeric re sults) [facility] Albumin 3.5-5.0 Normal (applies to non-numeric resul ts) [facility] Thyroid Stimulate Hormone TSH 0.358-3.740 No rmal (applies to non-numeric results) [facility] ID Date Data Source [id number] 02/25/2020 12:17:00 PM EST [facility] Name Value Range Interpretation Code Description Data Milena rce(s) Supporting Document(s) White Blood Count 4.8-10.8 Normal (applies to non-numeri c results) [facility] Red Blood Count 4.35-6.08 Normal (applies to non-numeric results) [facility] Hemoglobin 13.0-17.5 Normal (applies to non-numeric resul ts) [facility] Hematocrit 37.7-51.0 Normal (applies to non-numeric resul ts) [facility] Mean Corpuscular Volume 80-94 Normal (applies to non- numeric results) [facility] Mean Corpuscular Hemoglobin 27.0-33.0 Normal (appli es to non-numeric results) [facility] Mean Corpuscular HGB Conc 32.0-36.0 Normal (applies to no n-numeric results) [facility] Red Cell Distribution Width 11.5-14.5 Normal (appli es to non-numeric results) [facility] Platelet Count 317 X10 3/uL 130-450 Normal (applies to non-numeric results) [facility] Mean Platelet Volume 9.6-13.1 Normal (applies to non-num giles results) [facility] Imm Grans% (AUTO) 0 % 0-2 Normal (applies to non-numeri c results) [facility] Neutrophils % (AUTO) 57 % 40-75 Normal (applies to non-num giles results) [facility] Lymphocytes % (AUTO) 27 % 21-46 Normal (applies to non-num giles results) [facility] Monocytes % (AUTO) 13 % 5-12 Above high normal [facility] Eosinophils % (AUTO) 3 % 1-5 Normal (applies to non-num giles results) [facility] Basophils % (AUTO) 0 % 0-1 Normal (applies to non-numer ic results) [facility] Imm Grans# (AUTO) 0.0-0.5 Normal (applies to non-numeri c results) [facility] Neutrophils # (AUTO) 1.5-8.1 Normal (applies to non-num giles results) [facility] Lymphocytes # (AUTO) 1.0-3.1 Normal (applies to non-num giles results) [facility] Monocytes # (AUTO) 0.2-1.3 Normal (applies to non-numer ic results) [facility] Eosinophils# (AUTO) 0.0-0.5 Normal (applies to non-nume courtney results) [facility] Basophils # (AUTO) 0.0-0.1 Normal (applies to non-numer ic results) [facility] ID Date Data Source [id number] 02/25/2020 09:07:00 PM [facility] Name Value Range Interpretation Code Description Data Milena rce(s) Supporting Document(s) Hep Bs Ag Result T-Test Nonreactive Normal (applies to non -numeric results) [facility] ID Date Data Source [id number] 02/25/2020 09:07:00 PM [facility] Name Value Range Interpretation Code Description Data Milena rce(s) Supporting Document(s) HAVM Nonreactive Normal (applies to non-numeric resu lts) [facility] ID Date Data Source [id number] 02/25/2020 09:07:00 PM [facility] Name Value Range Interpretation Code Description Data Milena rce(s) Supporting Document(s) Vitamin D,Total (25OH) 30.0-100.0 Below low normal [facility] Reference Range: <10 ng/mL: Deficien t 10-30 ng/mL: Insufficient 30-100 ng/mL: Sufficient >100 ng/mL: Toxicity possible ID Date Data Source [id number] 02/25/2020 09:07:00 PM [facility] Name Value Range Interpretation Code Description Data Milena rce(s) Supporting Document(s) Syphilis Serology Nonreactive Normal (applies to non-numer ic results) [facility] ID Date Data Source [id number] 02/24/2020 05:31:00 PM EST [facility] Name Value Range Interpretation Code Description Data Milena rce(s) Supporting Document(s) Respiratory specimen severe acute respir atory syndrome coronavirus 2 (SARS-CoV-2) RNA [facility] This lab was ordered by [facility] Nita tovar and reported by [facility]. ID Date Data Source [id number] 02/25/2020 02:04:00 AM [facility] Name Value Range Interpretation Code Description Data Milena rce(s) Supporting Document(s) Color,Urine Yellow Normal (applies to non-numeric resu lts) [facility] Clarity,Urine Clear Normal (applies to non-numeric re sults) [facility] Specific [place],Urine 1.001-1.030 Normal (applies to non- numeric results) [facility] PH,Urine 5.0-8.0 Normal (applies to non-numeric resul ts) [facility] Protein,Urine Negative Normal (applies to non-numeric re sults) [facility] Glucose,Urine (UA) Negative Normal (applies to non-numer ic results) [facility] Ketones,Urine Negative Normal (applies to non-numeric re sults) [facility] Blood,Urine Negative Normal (applies to non-numeric resu lts) [facility] Bilirubin,Urine Negative Normal (applies to non-numeric results) [facility] Urobilinogen,Urine Norm 0.2-1 Normal (applies to non-numer ic results) [facility] Leukocyte Esterase,Urine Negative Normal (applies to non -numeric results) [facility] Nitrite,Urine Negative Normal (applies to non-numeric re sults) [facility] ID Date Data Source [id number] 02/25/2020 01:41:00 AM EST [facility] Name Value Range Interpretation Code Description Data Milena rce(s) Supporting Document(s) Opiate Screen,Urine Negative Normal (applies to non-nume courtney results) [facility] Amphetamine Screen,Urine Negative Normal (applies to non -numeric results) [facility] Benzodiazepines Scrn,Ur result Negative N ormal (applies to non-numeric results) [facility] Cocaine Screen,Urine Negative Normal (applies to non-num giles results) [facility] Methadone Screen,Urine Negative Normal (applies to non-n umeric results) [facility] Cannabinoid Screen, Ur Negative Normal (applies to non-n umeric results) [facility] Therapeutic Drug Ranges for Emergency an d Rehabilitation Threshold Levels (ng/mL) Cocaine 300 Opiates 300 Cannabinoids 50 Barbiturates 200 Benzodiazepine 200 Methadone 300 Amphetamines 1000 All positive find ings are presumptive and unconfirmed. Confirmation of positive results are performed only at request of provider. Unconfirmed results must not be used for non-medical purposes (i.e. pre-employment and legal purposes) ID Date Data Source [id number] 02/24/2020 05:29:00 PM EST [facility] Name Value Range Interpretation Code Description Data Milena rce(s) Supporting Document(s) SARS-CoV-2 RNA Negative Normal (applies to non-numeric r esults) [facility] Negative results should be treated as pr [...] Certificate of Accreditation. Factsheets for healthcare providers: https://www.fda.gov/media/557127/download Factsheets for patients: https://www.fda.gov/media/393094/download The ID NOW Instrument is a rapid molecular in vitro diagnostic test utilizing an isothermal nucleic acid amplification technology intended for the qualitative detection of nucleic acid from the SARS-CoV-2 viral RNA. THIS IS A STATE REPORTABLE COMMUNICABLE DISEASE. Manual entry verified by Ines Zayas 02/24/20 1729 ID Date Data Source [id number] 02/16/2020 11:28:00 AM EST [facility] Name Value Range Interpretation Code Description Data Milena rce(s) Supporting Document(s) SARS coronavirus 2 RNA [Presence] in Res piratory specimen by CONNOR with probe detection [facility] This lab was ordered by [facility] a nd reported by [facility]. ID Date Data Source [id number] 01/03/2020 06:54:51 PM EDT [facility] Name Value Range Interpretation Code Description Data Milena rce(s) Supporting Document(s) Discharge Summary [facility] QVSPUr3mPtCQKyZx77/BZYswUFSac9MqRJxgASl5HAneFZNgI5OlIYO5wK6fRWG9QZuEAiGaXcVmQHIz lbm [file] [facility]== ID Date Data Source [id number] 01/03/2020 02:27:47 PM EDT [facility] Name Value Range Interpretation Code Description Data Milena rce(s) Supporting Document(s) Nursing Note [facility] OGPCPz5qGbOUTiWu55/NFKvdKKSqe8XsBJbbNJo4LXmtZTSoE5AjBCI8mP5zSXU2AKnUChEiJyKkXQNz lbm YgVbdBVwZhGJGgAnzKDuNuAGazAjgbrXPcSB0CoGF4VZOxO41wXWPdNVSrK0KpROEuMdh+Kk7RQQYfcS UxKY3FFoeV6RnJfxQYVZ3Zqk+nAfF1lY/i7HTFPT/kDfhwtwr8NQzlUReMBYEmbWD/GiC7H7da4Fe5TS 3FmY1Yzgrd02yPCFY1q2+dz8yDNYc9D07OnhKJs/Tt N7Rhs+iMyiTOBUHMBsCk5kjvh8T/zdXnqG7B6UZJzXdPbjVzPtqbMsWxBlqyaIx8mJg/aO42cvsSqdY+ 8sYjv6V2P4e/U/jQsASWl0brCkGQ/cJ3644v/t+oe2CsqkoZnlOXs0JjgXdG1liNGadtrYyInEDDzkQM ZBZ9WblK2d9JLGG5kqXJ+AjYuPYxBzhYysbQDxk8VQ WGqL0ZawzEAlB9aJVZujZnsAO6GxxyFQjoYWBJwyhGtisfOk4JIEsWKj1L1TEDBa3x7Zti7iqaJRggo0 3f+9aAlaYFAPhw226DtKkBxrpX3XtpvVlC8hd4mk3NgAPaxVQU30bVuusI+NPgqtisLAFcJ8l87/mWgO mwKh+wKh0u5eJ7hAnV89FqQOclh1nSFNrRHKF+Nrig toGrLZYP/YFXiEQk2amhM802P4D6kkeGjj4/UOra/BdC0g4loptP0GxFXeo/isg81rydmpR9oJr0pxZh 2dqu1+NJOYxbAfn2/hrmKwPiHV0ddWqnQe6RCI4MBJKg/Chrystal+34L62NsaVLf/mQXWU0JY3fphg4n4rEZ [file] ICAgICAgICAgICAgICAgICAgICAgICAgICAgICAgICAgICAgICAgICAgICAgICAgICAgDQogICAgICAg ICAgICAgICAgICAgICAgICAgICAgICAgICAgICAgIC AgICAgICAgICAgICAgICAgICAgICAgICAgICAgICAgICAgICAgICAgICAgICAgICAgICAgICAgICAgIC AgDQogICAgICAgICAgICAgICAgICAgICAgICAgICAgICAgICAgICAgICAgICAgICAgICAgICAgICAgIC AgICAgICAgICAgICAgICAgICAgICAgICAgICAgICAg ICAgICAgICAgICAgDQogICAgICAgICAgICAgICAgICAgICAgICAgICAgICAgICAgICAgICAgICAgICAg ICAgICAgICAgICAgICAgICAgICAgICAgICAgICAgICAgICAgICAgICAgICAgICAgICAgICAgDQogICAg ICAgICAgICAgICAgICAgICAgICAgICAgICAgICAgIC AgICAgICAgICAgICAgICAgICAgICAgICAgICAgICAgICAgICAgICAgICAgICAgICAgICAgICAgICAgIC AgICAgDQogICAgICAgICAgICAgICAgICAgICAgICAgICAgICAgICAgICAgICAgICAgICAgICAgICAgIC AgICAgICAgICAgICAgICAgICAgICAgICAgICAgICAg ICAgICAgICAgICAgICAgDQogICAgICAgICAgICAgICAgICAgICAgICAgICAgICAgICAgICAgICAgICAg ICAgICAgICAgICAgICAgICAgICAgICAgICAgICAgICAgICAgICAgICAgICAgICAgICAgICAgICAgDQog ICAgICAgICAgICAgICAgICAgICAgICAgICAgICAgIC AgICAgICAgICAgICAgICAgICAgICAgICAgICAgICAgICAgICAgICAgICAgICAgICAgICAgICAgICAgIC AgICAgICAgDQogICAgICAgICAgICAgICAgICAgICAgICAgICAgICAgICAgICAgICAgICAgICAgICAgIC AgICAgICAgICAgICAgICAgICAgICAgICAgICAgICAg ICAgICAgICAgICAgICAgICAgDQogICAgICAgICAgICAgICAgICAgICAgICAgICAgICAgICAgICAgICAg ICAgICAgICAgICAgICAgICAgICAgICAgICAgICAgICAgICAgICAgICAgICAgICAgICAgICAgICAgICAg WJu1L7xrLGNuCJXbSG7fJFf0Ri9+GTrJWkZpMCV8gb PhxW8PSB9xd8IhHExkFWByb4JeNIv2XY9VQQNgNQwlCL6AHMoevy1QYTWiXBQllMRJt5miVqWwKOP2FY PwPilsED5RBGYaI1blbjVsJAHyCUAGTM6MLhIwM5LewQ62OMHYOx3+ZXzuzgUdQwzHJkZlYGXzb4RfZP w1HR1QKKTyAjanf4KzMpXrFFIWZWatXR3IJBO1OHPy NNIfWq0WFCMhJ170okQhCN6KTx4NZtYnNZ6fmo2QOiYgXEIvXevDOwg2IKmuKQ1VeWVsDXwPxFYdfG0q KZ3isBTmQtrhHU0rmxK1MZGvNEBmGOGZJbPxaGWgIV8xCW8mRPRfYIXbTkZ0GQVTVO8QQKWxPEHfkHVc AURfAVROFF3QATikDWI4CnwkrzRnxZLeVHheLF1ZWN JlbnQgMjIgMCBSDQo+Jc5RRV8du0AmSWgyIXIoWX1vro1EHMmBWsErT0P7nYGlS8Q5GUpqHk1QKLZySA KrEbJwCXEGOJnfPU3DPJ3ejrY3HU3DwOSkTZSvIHZhaKOwEOd4R57jkBWmTOhuWO4DQGJ+Nacho+Pg0KIC OqKQQaEJMwDuCvJZQQMcZzK1BqJ1VJf2PzK3YrET12 kJjdivRcYYbfWM4TCC2sHKAlGXPNWE0VhTQshF9uapRzLrLdYNUHBlDtK52daGZfAKUmNPPyRNTcRu4Q TTUgF8AyuyNtnWwzxwIdRRMeFMVVKL6HLMcqjmWzwBFevOhdXA57zSpfAH5RTn3BHdLcIJ7uvo8AnXKr Ws6KWLJaMV3ZJPGsQSLiNDJlPCZ7SYEcDyXoTBrvUS HyXJUpCCG5CPYwORPwLH1XAfLxIIZpWDvkRqXcCMTtFDVqyf0VXVEpQOBhFFi3GULyQFYxUGDrNLdoLY BcUQUwSFM5LAHeCWFlBJ5AGmNcWAUmKED9ItAlJWQzLTEqqf6IJXIyTGVcRPi4WYAzBHKdFASlBHneZG QzRBLmRoL8AHGiZKTeOU7PCoIhYGPuSGU0IknkYZId KHGhju7IKPTgDSVvKsMhXKQsUWKgHDRyOJavIACcMUJ4MWivNFXdUTPhZQ3GIrMdKHRnZNTdWqEoLJXl EVDbmj6NRSJtEDKbHHH4ZeHaMSNnKQEsAMsqEGOjYJN5ZZFoKRApGXJqTA2JJlKgQRQlFEtuLTliIFPz OBAhfe2JYFHdMMYpDaIoVdUaAYFxVRJaHAzhCHQuJL M1DSB6DKNmFLDfTO6AJaFmSGGoIBl7RIVlMJRqZGPsgg6PZJXnVCCzJKI7QSNbBTLzXSYkRSuaAAMzVX L5UHU3PSNfCAKoAL1GZbXvEUVfKGiwXEHcADYyVEBlas5YNYQwBAEaUOFhUWCcFLUaLVFlNDupBWQkFV PlTES5RLXjJJAgDN8CKnGgYIEgSbG1TwfbXDFlWFRq am1XUUJpKUSjMIZ0MtAtTZKpRWFpUEm9apOheZNhLEf6GK1IF6AlycVcYoPEFh2Gs752BVT3YWBgVf0S C9ezBd7lCWJiVJUKBp5IQRc4TsBhHRTnHINcJaqdBTV0NUDpJyB5OEJkPWTmG6B4YFZ+IDwzNmEwMmY5 ENGdI2F4EMGfFWWhAQRjIZZjZuA0MYl1Xc2gIVHGCe9+LMtvxKEqqBjnDLOKLxUqXeU4ZTdmYIOAQd4Y ID Date Data Source [id number] 01/03/2020 02:02:48 PM EDT [facility] Name Value Range Interpretation Code Description Data Milena rce(s) Supporting Document(s) Progress Notes [facility] IFVIEn5vYoEJVlKb36/RZBsoUSRoh3HhZNupFLi3JAtjLYSdE5XjRPV0kY1lJON2QQbABzQmUwYwBARc lbm [file] ICAgICAgICAgICAgICAgICAgICAgICAgICAgICAgIC AgICAgICAgICAgICAgICAgICAgICAgICAgICAgICAgICAgICAgICAgDQogICAgICAgICAgICAgICAgIC AgICAgICAgICAgICAgICAgICAgICAgICAgICAgICAgICAgICAgICAgICAgICAgICAgICAgICAgICAgIC AgICAgICAgICAgICAgICAgICAgICAgDQogICAgICAg ICAgICAgICAgICAgICAgICAgICAgICAgICAgICAgICAgICAgICAgICAgICAgICAgICAgICAgICAgICAg ICAgICAgICAgICAgICAgICAgICAgICAgICAgICAgICAgDQogICAgICAgICAgICAgICAgICAgICAgICAg ICAgICAgICAgICAgICAgICAgICAgICAgICAgICAgIC AgICAgICAgICAgICAgICAgICAgICAgICAgICAgICAgICAgICAgICAgICAgDQogICAgICAgICAgICAgIC AgICAgICAgICAgICAgICAgICAgICAgICAgICAgICAgICAgICAgICAgICAgICAgICAgICAgICAgICAgIC AgICAgICAgICAgICAgICAgICAgICAgICAgDQogICAg ICAgICAgICAgICAgICAgICAgICAgICAgICAgICAgICAgICAgICAgICAgICAgICAgICAgICAgICAgICAg ICAgICAgICAgICAgICAgICAgICAgICAgICAgICAgICAgICAgDQogICAgICAgICAgICAgICAgICAgICAg ICAgICAgICAgICAgICAgICAgICAgICAgICAgICAgIC AgICAgICAgICAgICAgICAgICAgICAgICAgICAgICAgICAgICAgICAgICAgICAgDQogICAgICAgICAgIC AgICAgICAgICAgICAgICAgICAgICAgICAgICAgICAgICAgICAgICAgICAgICAgICAgICAgICAgICAgIC AgICAgICAgICAgICAgICAgICAgICAgICAgICAgDQog ICAgICAgICAgICAgICAgICAgICAgICAgICAgICAgICAgICAgICAgICAgICAgICAgICAgICAgICAgICAg ICAgICAgICAgICAgICAgICAgICAgICAgICAgICAgICAgICAgICAgDQogICAgICAgICAgICAgICAgICAg ICAgICAgICAgICAgICAgICAgICAgICAgICAgICAgIC RoNNIkTLZqXCDbQVFzJFBbGWMuYFAsQYPnHKDfQDTnFOUsQKMdLQVrNBSfKNJwJZWyIJk8G5mxXJQiNI VyVX5fJWs8Fp1+ZPvHPnDqAUW2jsAvkL9SCY8cl7KrWCguMVAoh7HdSZg4QA0JNAGcLKpoVU3JFPkfvj 4KLDOuSWMdhVMRb0tlYaNvWXV6ALXnBjzqUJ9QARGc K1naidSbNVFeNLULSP6NScRbE7YqfI35BFPYJn4+KQcybzWpNkyIDyT8WYKwa5ZmMCu7MA9KTSRwNfep c4AeNxOrAAUGFRfyPQ9EGBF5LRF4GNFaRc3FBTPeW352dbVlHS4JYf7TZoEqAA4qtw3CTyXqSFToRudI Fuq0SEohOH9OpJElERgBve7bsfYaeiNJm2UbqkFznV LCFAJoiSWsLOHce0RhypFlfDMhVU0wEZ1fIFDuPMMoPjVbIWOUYY8LWAIdFAZwyKMwWKDyJEQXIF5KPI eaXOF6DfhewnCmqMOiSBsfOF3DUKGuiqEiHmMeRJZMCHm+Qz0UVT2eq0EgSNxsCiNbBY1rda7GJWoWHy NgR6M6wGMaO3P2EKliJk1JHPBfGDYbHhFsPICQHKfd BM6PEV5vcwD5AG0OsDXtRBHgIYJmqIAiBEa6L73neWHxAOtoOO5QJHE+Nacho+Mw3GVJQzPLFrZIKmQsGw ZEPLFjHaI5GgE0RZx6KgE6OxKT39hZppmsQfSRcfIT8KCA7dTGTjSDNJUB1PmAIbzG9bdfTxLRPxFBCA YqMpI72boIIvVDLiNRY3ZHTuHj0QKLGnX5WyqrBtjN dteoHdLCXnCGIVRA2CEQbeqxKzcWPyyVvsWD88qMkhUM1OEl0PMnJhQJ4ayz0VjERrKu3UWAGzQH5GLI RhAULhYRKhZXK0MOXzCuTvMCegBUCvJGOlLFF1BDHsDIPrEG5CBpFtSDPaSuDuBtKgUDOxHMOesl4GPD RtSLDpMif0ESWrZREvLAVfLMksJOWtIRAtWSO0YRTe UJBqPM6YJiOeSPKyKRM6DRJyMQCzQBFowf7DYIQnKQGmJsA5IZCmFGCtJFMbAEkxEJNgCSXpLlLhQJMf YXWeVG2NSwOqUJQaJRA2XKBaPMMdMIWmrs6IFFGlPGAvHbk3HTYrKMSzELEaSNxqJQPyBJZ3DHD3AGMb PXVkKQ5SNoUuDUOaEJVgADWkJFIcYNTvaj0XKJLtJT BrDONfRwAmNYOaJRPuPGgtJEVjBBJ3Jux0ORAzAZWdAR7YNtAuUSItUHj3MQAsSUZkKNImrn9ONBApBK StZRGrRRRoBEKlXFRyVNokENPuDKV9LLRkXTTqAAMiPK9CGsIbZJQiTEy5JRXpTHUgBZWnwv3PGINuTN WvYYBnWKFkWZSbHYZkCKhaBKDtTQE5QcFrUAHzROZj JP5HMaWrQTLhCXb8KMplZBUuKPRvgl2CKYCaIMIeSTx9KRBqTEKtWGNoNFmyALUxHMNpVGT4PZQtOVWo GR6LZeFlCJHrQhFeZPfaPCGrUAWevc8GPCAaYGKpBTPbVRQqOIPoVWGnKWtnJYCtXGCeRNV4JDOvCKZg KE5RMgDvRSXoMbOnGikpLJOoNHAugr2HYOEmIVSzDx Z6LZTuVFItRKMwIWu1gjSnrUFiDZw4NN9PB0IytsZdKubVOj5Xf039GVI5CDMgIk6DQ0gsRf1wPFFcNB DIWq0HMHh5AIQaNFVhBoxwPVY3GXA8FvF7ZZRqXRJ8OWKcNRHiQPW+NCi9T1RmMqKeATScEEEsEDftTy YwXCTeMShbR5MhUQR3Cn3yFXNEQt4+IFeidLNoxIrgEMDIBxXiYWP4VEowZJEFWu4X ID Date Data Source [id number] 01/03/2020 12:56:06 PM EDT [facility] Name Value Range Interpretation Code Description Data Milena rce(s) Supporting Document(s) Nursing Note [facility] KWNSVm1wDfZZZcJh85/RCMkiHIQjg5WxUFudEDb8IEedLEKeS7JnBJP0bG0dGMC6AHtRCoVzGeBcDSRp lbm [file] ICAgICAgICAgICAgICAgICAgICAgICAgICAgICAgIC AgICAgICAgICAgICAgICAgICAgICAgICAgDQogICAgICAgICAgICAgICAgICAgICAgICAgICAgICAgIC AgICAgICAgICAgICAgICAgICAgICAgICAgICAgICAgICAgICAgICAgICAgICAgICAgICAgICAgICAgIC AgICAgICAgDQogICAgICAgICAgICAgICAgICAgICAg ICAgICAgICAgICAgICAgICAgICAgICAgICAgICAgICAgICAgICAgICAgICAgICAgICAgICAgICAgICAg ICAgICAgICAgICAgICAgICAgDQogICAgICAgICAgICAgICAgICAgICAgICAgICAgICAgICAgICAgICAg ICAgICAgICAgICAgICAgICAgICAgICAgICAgICAgIC AgICAgICAgICAgICAgICAgICAgICAgICAgICAgDQogICAgICAgICAgICAgICAgICAgICAgICAgICAgIC AgICAgICAgICAgICAgICAgICAgICAgICAgICAgICAgICAgICAgICAgICAgICAgICAgICAgICAgICAgIC AgICAgICAgICAgDQogICAgICAgICAgICAgICAgICAg ICAgICAgICAgICAgICAgICAgICAgICAgICAgICAgICAgICAgICAgICAgICAgICAgICAgICAgICAgICAg ICAgICAgICAgICAgICAgICAgICAgDQogICAgICAgICAgICAgICAgICAgICAgICAgICAgICAgICAgICAg ICAgICAgICAgICAgICAgICAgICAgICAgICAgICAgIC AgICAgICAgICAgICAgICAgICAgICAgICAgICAgICAgDQogICAgICAgICAgICAgICAgICAgICAgICAgIC AgICAgICAgICAgICAgICAgICAgICAgICAgICAgICAgICAgICAgICAgICAgICAgICAgICAgICAgICAgIC AgICAgICAgICAgICAgDQogICAgICAgICAgICAgICAg ICAgICAgICAgICAgICAgICAgICAgICAgICAgICAgICAgICAgICAgICAgICAgICAgICAgICAgICAgICAg ICAgICAgICAgICAgICAgICAgICAgICAgDQogICAgICAgICAgICAgICAgICAgICAgICAgICAgICAgICAg ICAgICAgICAgICAgICAgICAgICAgICAgICAgICAgIC LgIVXzBILzWFPkAAZcTCSoPGFyTYRfVDQbRTPwHWOjMJAjNIs9Y4swREWxHEOuXQ7zXQn6Sf6+DQoNCm OfUVA5rzDlpH4WWZ0wq6KuPYohLRKfk4ArEJq9UP7BEDPjBDgsVI7CBVotuu6HOVNiEEZwmSXHj2naMv RtBPP9RZBxOqofAP9IWFRuQ5dhqjYmNWRoXDNUYU1R JbTfC2JitR32XCCUWr9+TEufmvHdOzrWQcVbNADog8EyCOz0UV2OFCJdPddqz6RvMsCmCUXENNcxBD3P DQH9JDWmJBIjOt2CRHJsU634qnDaPA5TBs2UQsEcOZ5lod8YEoKhFKHoZkgMPpm9SEmjTG0OoZBqSQbB uKAijV1xDP9daUMhCtukFC2wfpY7TNScUBMfMQBGSu RwiJWpXG6iJH1iMTRnMVTpPzWfBGSBEB3QKMYpXQGtoFYlORHzEFZFCD4ROKwbLUH1InizyeZabRXpOL ekKX5BIHWryeRlHwEvIITKBFp+Tm4AQP3zc6NwHIszNCStFR0lxc3JOWjMXpIxE7A1uNFmX9M7OEfrYb 3AYIRyJTEuHtAoJKGGDWoiJB2DTO7dhuF4KC8HwGHw IYYdJIKktDPmXYf6L69kkXSfIBveVL4RQQS+Nacho+Po5AYGJgULGsKTJaDnMoJKNTHqPdZ4MaJ0LLu3Cy U0SmLO25oArddxObZFvoYB8PUA7aQLWfQVJMBW7DdCCbzK0wseKyXsChHCGRJoLjH68ajZWwWPNkAUIr LJQvRx8YUDFkR4IzkbXpeFtsaxEcIDIjBBWZBD0ODB eokfRqrALbfWjzYV94oPqeEE8YAv1XGcTeWU4qhs4RwSDrMt6PTMHbJS6WPCTkXYJoQGTuIQQ6PNQhCp AsNMgmBSMhODOvOFW6IFPcWQXlLR9DFhTlBEQbZEkmNEQdPEBnXDEisr7VXOOqORCrTKjyDHTfRZOkZS VqZXcdLRMwPYCsGRS1CYGkISZuZT4WJtHdWRNyRRP1 TgArBJBvBHMocc8JPQHlAYYtVRiuVuXxNYWrDFCaKQisXBLxFWJcSfb8LPSlZSJgXH3BZgDgLPUaBTF1 GMIgKUTdARBmdk0ULKTqUVVbWmX5CWXsESHqERDqEMtnXAAcOAT3OZL0PPXkWYIuTA8PYeNpTTPzZVKn FhZjPLDqOBHmsw9YRALuEOHfUKTtXBCkTJXrAGTfAO gjIBWmHSW0QQS2SUTeQIBrXR7NMuDbNMJxNTysRUZkCUZfZHDiqu2ZANVhLISyJhS7GqQbDISuPXQzOF mhFGOsLLT8KdNrRSQnWIZmYL1MBhNmGRTpEKl3JceuRHLiIYQyqp8XZGWwACEcLEbhMAYfLIAqOFDiRQ qtGFKgSKV9PTT3CDUbJQVuDW1LEmAqYJTrTVdgCosh KTXsVQDvbr7BDVUlVNGaHTA9CTHqXOVzSSElELxoGQLdDYGcISGwOWKaHWXnOG8ANqWzEFWpAnWqJZBm HBOgUKWiho1GLRLkGRRhXDC5SIWaSQLwYOZpMSz5dtOygDNjFDz4CC2PD9AxipPaKpZJEr6Lj015UIQ6 OLYdVl9PR9xkBw3uEZOmIABOPl9POZl5BoK3OeZfLo XuGcN1MOdoOEXnUtM1UIXtRUDiNDOgHcU+TMe2HPd5YhF1TVZdCng0ZFR5YTVgFTObZISkIHDhMXU9NQ 1oMFQURj3+EMsfoALqpMgoWMXNQfSxLveyJRwdUHXKDe4O ID Date Data Source [id number] 01/03/2020 12:14:17 PM EDT [facility] Name Value Range Interpretation Code Description Data Milena rce(s) Supporting Document(s) Care Plan [facility] RDQHFs3mYcABOzYz45/OKDvuGKIen6VaOLlbWHe7GWixNCYwE2CoCRM3fS4pVAZ1RUyZUjKiUqAyJRYm lbm [file] Oh3WFjw6EPxIPsXiHZ1DBZz= ID Date Data Source [id number] 01/03/2020 11:42:05 AM EDT [facility] Name Value Range Interpretation Code Description Data Milena rce(s) Supporting Document(s) Progress Notes [facility] VNWCSd2cEuMAYdUx99/FAIjnTIAtv7JcXUjaULb5TQwcOLDiF4DlTGU2xG5gGAK5JCsRMbEaWzDjBQQm lbm [file] ICAgICAgICAgICAgICAgICAgICAgICAgICAgICAgIC AgICAgICAgICAgICAgICAgICAgICAgICAgICAgICAgICAgICAgICAgICAgICAgDQogICAgICAgICAgIC AgICAgICAgICAgICAgICAgICAgICAgICAgICAgICAgICAgICAgICAgICAgICAgICAgICAgICAgICAgIC AgICAgICAgICAgICAgICAgICAgICAgICAgICAgDQog ICAgICAgICAgICAgICAgICAgICAgICAgICAgICAgICAgICAgICAgICAgICAgICAgICAgICAgICAgICAg ICAgICAgICAgICAgICAgICAgICAgICAgICAgICAgICAgICAgICAgDQogICAgICAgICAgICAgICAgICAg ICAgICAgICAgICAgICAgICAgICAgICAgICAgICAgIC AgICAgICAgICAgICAgICAgICAgICAgICAgICAgICAgICAgICAgICAgICAgICAgICAgDQogICAgICAgIC AgICAgICAgICAgICAgICAgICAgICAgICAgICAgICAgICAgICAgICAgICAgICAgICAgICAgICAgICAgIC AgICAgICAgICAgICAgICAgICAgICAgICAgICAgICAg DQogICAgICAgICAgICAgICAgICAgICAgICAgICAgICAgICAgICAgICAgICAgICAgICAgICAgICAgICAg ICAgICAgICAgICAgICAgICAgICAgICAgICAgICAgICAgICAgICAgICAgDQogICAgICAgICAgICAgICAg ICAgICAgICAgICAgICAgICAgICAgICAgICAgICAgIC AgICAgICAgICAgICAgICAgICAgICAgICAgICAgICAgICAgICAgICAgICAgICAgICAgICAgDQogICAgIC AgICAgICAgICAgICAgICAgICAgICAgICAgICAgICAgICAgICAgICAgICAgICAgICAgICAgICAgICAgIC AgICAgICAgICAgICAgICAgICAgICAgICAgICAgICAg ICAgDQogICAgICAgICAgICAgICAgICAgICAgICAgICAgICAgICAgICAgICAgICAgICAgICAgICAgICAg ICAgICAgICAgICAgICAgICAgICAgICAgICAgICAgICAgICAgICAgICAgICAgDQogICAgICAgICAgICAg ICAgICAgICAgICAgICAgICAgICAgICAgICAgICAgIC HfSNEuASMwRDAqFHTaCAZuDYGrQRNaDGQcMUJdEHWeWVXrJARpIPEfNXQhIRFlCAFcQOBpBVCoQLy9Z6 ilZHHiMXOtPA0vDOx3Lx5+WLsKZzWmXEX6rvTvpL8DBA1pu9VjTJqyWVDfr9HdHCb9WI2DIIXiEKpeSC 6WJLmcdr5XAGMtDTJvtPBVb1svRnAlNQT2EZGsEluh KL9UURNbN2qngjNoQMDuXZYNAJ0SYdSyH7UeiI95MDKVIm6+ZAcdrdOyQjvRKyU6FXShd7RnQKm4TF9W WPKmTrwva8YcFwHkQDSBTApdRY0MGQV7KIF5WHAzLo9STANaI265jlKsQK2UQf7VLaXtCT5xpk6JVzAt CGOiTcuQFtb8IUgnPN8SnWUtWQtWqu0ozwPwvtEOc5 IwzdRsgTVMaR9wXUWhNaYvQNK1MDOmLxVlKzTsJpBqRSG7HYJwOR1uVPsfLB1JBIU3IRxqPVSpUJPjY1 sVDjJvBYwbSPOzxExpAE0DMmKcD1YtwxKjiNDdJCOvFQGCRc1+ACagdpCgFpiLLlK9WAJbh2BjPKs6IH 1KYIQwJQtbGH4AMWSlxF8eLTboPA9IAnOlIcSbURHA ZjXjL40pvIYpKXl2C8XsWmCfCLMfQksiRAOnVUsoMjWiGLXwLqTwMGcwEQ6+ID4+ATspGW7EOQtjlnBj SPCnSk7ETEIiLIZnTF4kLONtSABmV0X6ySthYBOQLiGpZ2yiflvdLW8nKVOeS143wOkienLqTJF1UZBp Ff7NTWShIFX2XNLktAKhJqRbLZTEDFstJI3WfZOwJG N6vS7rEKugLNJjHHJjS2lKHxBawJbjLZ20iWgbudTutOTzXCi+Wa2SOU9oo9GhBRr3gwTlYKuzTIP2QE tbXDBqYDPdEPEfZDO0CLD2WGRVUmInHHLoJQAlJExrLQTpEQEhzz5VYIIaPCOgQAImTMJeBTDpFYIqRN moXHJyLETzYjreCIOaFPTgNC6RNtBqDHIoWRZfHZsw VCNnUUEemo2IOPFbZPXnYBs7WDIdIEMqNCLrVMeiGPVvBQReRWL0YXPfTNEzQE4DEiGmISGkYNNsNEPi BUPsJRTlzj9CTWYeGUBdMpFsToYtXPLxTEOyOHvnEECtLOZtPqy1NRXoYGOwCQ5YGoPgVODiTXWgGSoj OPYhUNFmgh6KQJXtPANeAXQ2GBJrUAPwEAWjHOpvGA CsUUG0VwH9HKQkZHYiPL5ZRwDzFSDbEVtsJaDrFKPmPORpsw3XTUQbUAGcAbW1DGTnTSVzMVDgTOaqQT HwLJR8EuYcOBXyTBZdBI9CKqCmLLQbLCe4XEUqVTCpGAVuew3JERYoMMDaRea4JpHtMBYyTSMfVPivOR FoNJO3BJX1PPAdMEKlUK0ZKzZtUCWgXBtaSdOvUWIw GVJzcz0CCRYdDXLzQER2UCDgTBZmJQQdHBtcLJDdBVLbJoWiPYQlHTSqXE4IKnNdLPJvEcH3SdVvLNZo BKEzit8RJJWaCOWhYWB3WHBnSMXrAASuEHgqYZGoOAHxXRRnXZSlQLGpEB4MZpOvJJFoCuJ9LnsfENOw KJImxh7LPQWfCSCjMoWdRUDnMJWwHIEvOOscXGHzSX YdBgtiPAUmDVOiTB9ZUcNzIMssBZALUmt5ILnsC1l2FZHgTS8FW4Xjv8JpKdanMRYWGWzcKU9cbsBtIK KsZu4GA3dBJuoyXbYdMkznMKI1GdT9FQRwTwgnIfD6ArI2MrRrLOm7NU8tVMD8ASWhIMYfNNolPsCtGT CcY1JmKzwkHBF4BEM3Rvw2FtSsUC4HDj1KXaY9UPW0yTCpZb6ZLhC2HiVVQiIrBG9LTMi= ID Date Data Source [id number] 01/03/2020 07:22:19 AM EDT [facility] Name Value Range Interpretation Code Description Data Milena rce(s) Supporting Document(s) Progress Notes [facility] XGQOFw6pEgIQQeGq46/GZLriKBRlt9PrSAtkPSz6EAliOAPsF0YcQUQ1mG8dCWV3SSoPVqNvKzSuDAIl lbm [file] XN3SWg3OZnZ6VMF8sEQlDo2EHsQ6YVVUKtTqPO5QIFt= ID Date Data Source [id number] 01/03/2020 06:10:27 AM EDT [facility] Name Value Range Interpretation Code Description Data Milena rce(s) Supporting Document(s) Care Plan [facility] DDRUZm6cDePVXcAt87/BBAycUZPob4IlZXfbNOn0DGkyFYXyA4TkTCT5mC4sRJP5WVyDQqMjClPdBHEc lbm [file] C4HtA2KDatJOCpAtZkE3QlGJX6AgofLeZrXK7XXf4QMsY1KIV2dYQoLr6JExS3BSqHMjToLW8VUHm= ID Date Data Source [id number] 01/03/2020 06:10:12 AM EDT [facility] Name Value Range Interpretation Code Description Data Milena rce(s) Supporting Document(s) Nursing Note [facility] WSBQWb5nYpXHWmDb05/UDVscUZSrw9DuVQycHRh3JEjrGSRwI5EqTWA3nW7cLBI5XFtQZjJoNjCaIJMf lbm [file] AgICAgICAgICAgICAgICAgICAgICAgICAgICAgICAgICAgICAgICAgICAgICAgICAgICAgICAgICAgIC AgICAgICAgICAgICAgICAgICAgICAgICAgICAgICAgICAgICANCiAgICAgICAgICAgICAgICAgICAgIC AgICAgICAgICAgICAgICAgICAgICAgICAgICAgICAg ICAgICAgICAgICAgICAgICAgICAgICAgICAgICAgICAgICAgICAgICAgICAgICANCiAgICAgICAgICAg ICAgICAgICAgICAgICAgICAgICAgICAgICAgICAgICAgICAgICAgICAgICAgICAgICAgICAgICAgICAg ICAgICAgICAgICAgICAgICAgICAgICAgICAgICANCi AgICAgICAgICAgICAgICAgICAgICAgICAgICAgICAgICAgICAgICAgICAgICAgICAgICAgICAgICAgIC AgICAgICAgICAgICAgICAgICAgICAgICAgICAgICAgICAgICAgICANCiAgICAgICAgICAgICAgICAgIC AgICAgICAgICAgICAgICAgICAgICAgICAgICAgICAg ICAgICAgICAgICAgICAgICAgICAgICAgICAgICAgICAgICAgICAgICAgICAgICAgICANCiAgICAgICAg ICAgICAgICAgICAgICAgICAgICAgICAgICAgICAgICAgICAgICAgICAgICAgICAgICAgICAgICAgICAg ICAgICAgICAgICAgICAgICAgICAgICAgICAgICAgIC ANCiAgICAgICAgICAgICAgICAgICAgICAgICAgICAgICAgICAgICAgICAgICAgICAgICAgICAgICAgIC AgICAgICAgICAgICAgICAgICAgICAgICAgICAgICAgICAgICAgICAgICANCiAgICAgICAgICAgICAgIC AgICAgICAgICAgICAgICAgICAgICAgICAgICAgICAg ICAgICAgICAgICAgICAgICAgICAgICAgICAgICAgICAgICAgICAgICAgICAgICAgICAgICANCiAgICAg ICAgICAgICAgICAgICAgICAgICAgICAgICAgICAgICAgICAgICAgICAgICAgICAgICAgICAgICAgICAg ICAgICAgICAgICAgICAgICAgICAgICAgICAgICAgIC AgICANCiAgICAgICAgICAgICAgICAgICAgICAgICAgICAgICAgICAgICAgICAgICAgICAgICAgICAgIC AgICAgICAgICAgICAgICAgICAgICAgICAgICAgICAgICAgICAgICAgICAgICANCjw/eINsX6vlmBCzyc N6H1ktKo7WDh3GLF5wr5FbCAZtCEivmqYrNmwDAoDq QEFiSxlEMlg0MEltRP2XwYRuQ8CsS8FtCDrfLH8ZUWUqWOPqoQKcCORoXSKbJfJ6ZKAmTYbyFZ9QiWMs JXnxMCXbEXKzGR3ILSBkP347ffOcXK8UUg4MAoTkQE9xol2XRkFkHOBiZntDCnr8RImmNI0ZzJIlcIEn ErNaCABVZsRdI9fkt6JsVvFyLYMPIWdxFU9Ih0QcvC AxDQo+Rd2LQD5vd0RlXLpyRnUyTI9abf2JCZqCYxOkN5KonUujKF96gbNyuderRv45AYDszZULVQMldh VDSDsgEWXSVsRgqIVkTU4aNJ2iAOUnFNK2OpYtUQCIQJ7VUFAlCBRtuGAvPYHoUGVCVI7RASduNZW6Yb dsptIsrHSmNKghEA9ZIMMyvxJiAeSaOZQPSLv+Pg0K PY8gk6RuWZqkXHBcIW2rqf0NPKeDCuAlE1O9gYWvI5W4UXclAa3DNMFwQIEmGjPjHINVBBgyVO0ZXJ1p hgS8VU2XzVUdPONuYJQdrQFlJSt4F22leXCnKPkpBI9DXQL+Nacho+Lv9XUCNjTGVkOAWkWiEbXISCTeGn I6NhP9DTq3QaG5MsMO31mBcclwDpSSwuOT3MJT4hES SdGVUWZO4UpKOdwP3iwhQzWxPoBGXHPkPtQ97zpJVpVMTuYSPrMIXkNv1HNBDqC1LgsfHdoJoeqnZnHG WrYZJIUS9FSZkdnsMcoVTnmVejCH90qUusBH5BAu5LFtGeUP3elx1NuOKbCi3XKWOcMC4JMUQoGQVrOF KvVLU0LDSrZsOdDWbaZACuYRFpMVO2SBQbNXIpBP4C DdSoOKOgMFu3TlzpBBNuELIohy3FQHIeUUCrCOSlBqHtBLGpXMEsLRpmGRDkVGDsDWX0ZAOgAXFnKV8Z LgRbDQTsFHF1ULNuCNImXCQcoi3CJQSmOSZjOLUrSCQpXLMwKSJbOPikUMEjVZUaGYNiLFMdXHXqQG8H XjFaVFZlZRZ4ZzKxPOTzNKXrno3WOBSvPWAlQin1OT OuVWFmAZInLEhvSGEzOQTxPZS9MQBfFBZiQT4PJcSpDNYjTYFtGOQzFPRbUXRksd3EGRKwSJOuLFR5Xi FtXGMaEOVnNXehLQDhLUC8KtA7SLUeODUuRP5KPtUmJMTuOZW5UCMfEMVnCRVpqv0LNWKuCOBwQwX9IL VfCWXwVIFoGObdRPNuCVS5UQXwMDSeQOHaYY0EKuDw JFPzVAu9HMUcUDUiHVLtup6NUNCjLGQmYOP9KWReOGZsQQPtXNtgRBZbLVE3EfqjKDGjRSQaGG3RDqFq BQTnWAs4JNEkBYJeDVKbrw5BNVRaINXdWIQ7XfPbUPAxDRBfXPzjIQLxCVDsYjAwQCOaQPKoBB7TFjNz BEZrZfC9UoJjRTSqCRZuph5CDFBgAWPvHGykXNPnLK SuXSKqVZk0pdNpyZJpKZh8AA0BI9GwcdVtAyMNNw2Hd210JYU3KONdKx6TO2skWz4yVDAyCBUIBr8JAV c2ZzV8PKb1EAtuMJq4HlKoUDhtNCT7QTXtLpQ3OpUkXgB+KAofYFa7AKEiThQ0JNc0AUJpARIfNqlgVx LnDiSyC5OwTM5eWKRDTh0+KKqpbVThnZilVPVWZaKzXZP5BBsmHWLZDs2I ID Date Data Source [id number] 01/02/2020 06:05:45 PM EDT [facility] Name Value Range Interpretation Code Description Data Milena rce(s) Supporting Document(s) Progress Notes [facility] WKWWHi0nMkFREhPq08/IXMsgDOGkm6ScIMuhNZz0ZMjjJXPfM2HlYFH4aE3sZJI8EPbHPzQaTfBmBHO6 lbm [file] UBxnLRWURd0I ID Date Data Source [id number] 01/02/2020 06:02:49 PM EDT [facility] Name Value Range Interpretation Code Description Data Milena rce(s) Supporting Document(s) Progress Notes [facility] GRKKIg7iYeZDIfUm48/XKXyzVWJxe8KjDOcyCXc0LPwxMRKsC3ZsZWG9xA9lAXA7TFrUUsYzOdSjWQC6 lbm [file] BwR0PZW5aGZhEd1MAkD0XgQECdWyMV3LQYp= ID Date Data Source [id number] 01/02/2020 05:00:43 PM EDT [facility] Name Value Range Interpretation Code Description Data Milena rce(s) Supporting Document(s) Nursing Note [facility] WSKLOh8oIpUSEaEh22/TCNluOTPew1WwRXpsYUk8VXhaWHTdF5YlQXB9gN2cVSS2BIzIJlUcHrPrRTX5 lbm [file] == ID Date Data Source [id number] 01/02/2020 03:51:08 PM EDT [facility] Name Value Range Interpretation Code Description Data Milena rce(s) Supporting Document(s) Treatment Plan [facility] PVOUYs2bGgMFItMv86/MMKakRGKnl4HtMYlqSCh9NQqeSDJbZ0UiMEO6qR8eJDP3YSxBNlFhQgFlXJQ3 lbm [file] H3RctbTYHzFDBnAtN3LZKyHCH+DG9dOZb+Ut2Qu2HgpkD9knSpHYaqLaA0Mm7HDRXBT7SUGo== ID Date Data Source [id number] 01/02/2020 01:48:48 PM EDT [facility] Name Value Range Interpretation Code Description Data Milena rce(s) Supporting Document(s) Nursing Note [facility] CLGJIz8hOwHHNqNs90/GZMsuULFdj8QiAKaqONp7FIbkXMVaB2LhFOE2aT0xUIJ6BAiKVfYoQjPsSHS2 lbm [file] dGE+DQogICAgICAgICAgICAgICAgICAgICAgICAgICAgICAgICAgICAgICAgICAgICAgICAgICAgICAg ICAgICAgICAgICAgICAgICAgICAgICAgICAgICAgICAgICAgICAgICAgICAgDQogICAgICAgICAgICAg ICAgICAgICAgICAgICAgICAgICAgICAgICAgICAgIC AgICAgICAgICAgICAgICAgICAgICAgICAgICAgICAgICAgICAgICAgICAgICAgICAgICAgICAgDQogIC AgICAgICAgICAgICAgICAgICAgICAgICAgICAgICAgICAgICAgICAgICAgICAgICAgICAgICAgICAgIC AgICAgICAgICAgICAgICAgICAgICAgICAgICAgICAg ICAgICAgDQogICAgICAgICAgICAgICAgICAgICAgICAgICAgICAgICAgICAgICAgICAgICAgICAgICAg ICAgICAgICAgICAgICAgICAgICAgICAgICAgICAgICAgICAgICAgICAgICAgICAgDQogICAgICAgICAg ICAgICAgICAgICAgICAgICAgICAgICAgICAgICAgIC AgICAgICAgICAgICAgICAgICAgICAgICAgICAgICAgICAgICAgICAgICAgICAgICAgICAgICAgICAgDQ ogICAgICAgICAgICAgICAgICAgICAgICAgICAgICAgICAgICAgICAgICAgICAgICAgICAgICAgICAgIC AgICAgICAgICAgICAgICAgICAgICAgICAgICAgICAg ICAgICAgICAgDQogICAgICAgICAgICAgICAgICAgICAgICAgICAgICAgICAgICAgICAgICAgICAgICAg ICAgICAgICAgICAgICAgICAgICAgICAgICAgICAgICAgICAgICAgICAgICAgICAgICAgDQogICAgICAg ICAgICAgICAgICAgICAgICAgICAgICAgICAgICAgIC AgICAgICAgICAgICAgICAgICAgICAgICAgICAgICAgICAgICAgICAgICAgICAgICAgICAgICAgICAgIC AgDQogICAgICAgICAgICAgICAgICAgICAgICAgICAgICAgICAgICAgICAgICAgICAgICAgICAgICAgIC AgICAgICAgICAgICAgICAgICAgICAgICAgICAgICAg ICAgICAgICAgICAgDQogICAgICAgICAgICAgICAgICAgICAgICAgICAgICAgICAgICAgICAgICAgICAg UTTaALRuXCOhUOAfHGIbYMCoXGYyUPSjIYYrCLBeJDLqPKEtLNMaOIZhGNMmMQBgQRYoWPXaINu0I8jg DQLyHBUwZB0xZRj7Tv1+CLdMWhPyNIN2nzMukS1ODA 9oe9FdTRxkTCOxs1TmTUx3MN4ESDRyBYbsHG4NZDifpb2KPLEtNPUtzHNRb8hiAnPjJTA4CTLuVyieFL 0MHODdF9ngwvKuUFZtHATLWI4SNuNsY7MgmG45YQINTy6+SZevwtTdSznEFdNcLAGva8AqXCm3WX1ZXA CyQentb5DhYpHjVRTPJWgdLT5ZAPX4IKTiIRLbHq4S XOAnN206gkDzGR3MZc0EBfHjWB2wqr8XEnAmFMEpUwxCCrv1UYtaYZ6YlMVsUSvGsCGwxP0uAY7omDHn YzxhDRZzsKUOOUWrOMSDRhAnyRClBS1vOY4nFHNeLLQwAzBeGTXEHX3TYTJcCNYneWQvHWYqUNPFIJ4C SGuuJHR3AxztfwGorJYmLVhfTD4PGTOdlhGxFvGyHE BSDQo+Nv3JHF9qu8HwAMrbPBXzLJ0jzd3MFRtSGzDtU1Q9kVXeC6J3VGwaYs7LNPDkHNWaNeClIJGKSI paDI4RIN2vfkK6KB9UuCIwPWFqECUjuZUtHEf1P31cjVClUMucGG2DHKH+Nacho+Ha8AUWMvKFDzRUPzLi MmPFTPXuRgV9ZmX6EOq2AiU5YcBY55gCxjeaAjWPai ZS8ZOY4kIMNwKEGRQR7XyUSiiD6hnjEhImAwXZUMOxQyI46erBVmQYTfCEGnPUQsRm7JDXMeP2PjpsVv tXuywbUmGZWaWZJJPR2HBZpwrrVyxKUokPoyQE13gLeyDO7GLq1CEzCsRI2opd2UmWPqSh6ZTUEaQY8A HWSaCSNcWSOtWYC3GDVcReHxHFblFWKaKXAgKAN5XH CdZGXuWH5OXuEgDMZgLNe4LlIsLQSyEKMamg0RWLEfRANqDPE1KFNyEJKnNDJhEYigDAWtMGYxLZP7XX RzZJFiFK2ZHdDpCZHnCBDiOObtECDdYLGasq1ALOOzCDWwOTI2YORlRNSjQIGuRZglOUWpYPBlGMO2MP LwPSOfHQ6RXoOvAYGrTPQ3NfQuQIDkSFFlck3WDEYc DTBqCttxRNXaWJYtWQJnHYchVHTmHXGeJmO4FBEuZEUbCM7RLjKlNPXmRRC3GsSgZQSyYLLunz7YGPPw VXGgAJC7DpPjKSMeSFBjEOtxSOHnSSR1TVkvNNTwQYWeLH0BUxPkMUYpHSF2VRacTTGlNELqyn5ODWEp SPWwHyPwJrDnDXUiQTJzZKzhMVTrYVX4RkV6HRQnHZ DsUU9BDdFdKFHrHFv4TYPzHCWaJPFduw5UFORgTROwQTM4OQGuXCDmXQHjQMmzZTZqNDE2XTFxPYArLG ZxUV6ZAeFoYERhZWq9EIUhXILaVZMjrf0RJSVdZHWcSSYmSKUiCNJaXVFwKRhaEOQfUCBwYKG6EYUvXF VgZE4OGrLsYCIeGkH5TmpdYYBpUMPhfd3MLXHdZOQu LWp8PVBkZHKxHXAcBQd1ciDiaJKgDMg8SN3FH5UtrcVdGyZADo7Ui327XZJ1HCXgAd4WM4hmBe7rJILs QBDWTm2CPXs7PKVpMSG4UbjjSrMzFMO7BNJ2QPwoD3J7VWIkBDK3UDF+NUwmRnNsRNGiFHKhIAN9Hpm4 SHSxSIQ3VFP3R9M1UUwdQW5nDNNNKw6+XSomsDXqhOmoMDOLZcVrRPI6ZFkyKBUDNj9R ID Date Data Source [id number] 01/02/2020 01:43:35 PM EDT [facility] Name Value Range Interpretation Code Description Data Milena rce(s) Supporting Document(s) Care Plan [facility] LYUTNj1cOtPPBhNv77/DKDtzEMQbo1HuXBdaKWb1XAqtUTKjY4MxZGE1xC9eRAO8UIzYWgYhVnRsMQA2 lbm [file] LH8dXPg+Wz1Cy2LwhmJ8eiUsAGpnHrJlFw4OFTVQO3OACq== ID Date Data Source [id number] 01/02/2020 01:31:45 PM EDT [facility] Name Value Range Interpretation Code Description Data Milena rce(s) Supporting Document(s) Progress Notes [facility] FFGWRm4oSgEBIhSa15/SKLcqTUObr9KcXQnfKFd7KHnwZOXtE7NuUVS6qW5jQVH1RUrFHyIjEcPgNKL4 m [file] ICAgICAgICAgICAgICAgICAgICAgICAgICAgICAgIC AgICAgICAgICAgICAgICAgICAgICAgICAgICAgICAgICAgDQogICAgICAgICAgICAgICAgICAgICAgIC AgICAgICAgICAgICAgICAgICAgICAgICAgICAgICAgICAgICAgICAgICAgICAgICAgICAgICAgICAgIC AgICAgICAgICAgICAgICAgDQogICAgICAgICAgICAg ICAgICAgICAgICAgICAgICAgICAgICAgICAgICAgICAgICAgICAgICAgICAgICAgICAgICAgICAgICAg ICAgICAgICAgICAgICAgICAgICAgICAgICAgDQogICAgICAgICAgICAgICAgICAgICAgICAgICAgICAg ICAgICAgICAgICAgICAgICAgICAgICAgICAgICAgIC AgICAgICAgICAgICAgICAgICAgICAgICAgICAgICAgICAgICAgDQogICAgICAgICAgICAgICAgICAgIC AgICAgICAgICAgICAgICAgICAgICAgICAgICAgICAgICAgICAgICAgICAgICAgICAgICAgICAgICAgIC AgICAgICAgICAgICAgICAgICAgDQogICAgICAgICAg ICAgICAgICAgICAgICAgICAgICAgICAgICAgICAgICAgICAgICAgICAgICAgICAgICAgICAgICAgICAg ICAgICAgICAgICAgICAgICAgICAgICAgICAgICAgDQogICAgICAgICAgICAgICAgICAgICAgICAgICAg ICAgICAgICAgICAgICAgICAgICAgICAgICAgICAgIC AgICAgICAgICAgICAgICAgICAgICAgICAgICAgICAgICAgICAgICAgDQogICAgICAgICAgICAgICAgIC AgICAgICAgICAgICAgICAgICAgICAgICAgICAgICAgICAgICAgICAgICAgICAgICAgICAgICAgICAgIC AgICAgICAgICAgICAgICAgICAgICAgDQogICAgICAg ICAgICAgICAgICAgICAgICAgICAgICAgICAgICAgICAgICAgICAgICAgICAgICAgICAgICAgICAgICAg ICAgICAgICAgICAgICAgICAgICAgICAgICAgICAgICAgDQogICAgICAgICAgICAgICAgICAgICAgICAg ICAgICAgICAgICAgICAgICAgICAgICAgICAgICAgIC FbGAZfTDBaGEVaEDKtBQSbYMWmSUXiIGMkSCIgLUNyBCHpGPAnKGPaNUHgYDd4B2kkNAWeIDBkFK1qMQ d3Jz8+TNtNVhXgYZO8mrFqgR9YSX8xr1NqPIuxJZLrw2KbZCs4JP2TVAXlCLkoAQ4JKMdqgh4NUWLhAD XfiJPTp7ftNeAfCNU6IVEkKvfgBK1JUMZmN7hrjhHe WADeJCNLQU0DWcQvU5MhoS14KVUBHg8+OYwinrCmYjeMLvZ2TGAiy4MgNSd1EB0FHIVmFwzkd7NhOqVw WVTVPFxfUF4GDMT9JMX2IZTjIz3LOLOdR250dqAyZL8LWn4DVdUdER5wvf8AQbDaTJQzTbzFKtd1OWbb JI5AhKEpAWtQao7xroIvqhSIw5HeasNdrVZRVOOxpE PpPMHbj7MendFfbFReOQ5qXV6sKYOkKCZxEdN1IDOMXL3RSSCbWSYwdWSwDLVjVVFMVV0TGPhdYZO8Aa msbvXiaQQiCVqdDI6ACAByhdHpVqPjIDCBLWy+Ob7PYM1dr4ClCDazOeIzRD3moz6GTEqNUgKzX1U9eJ KbJ0B9ZXxzAt9ZANQeIWQuAgNkUNUBAUyeAI6GRM7q vaG1HF6EbLIuXOOoWQIjgNWmLJj8L77ynVLbLYohRR9TOKL+Nacho+Sj9RQDIpVLRfEBIsXzJlAZLTGxIf K4AiL5IGp5JuC0SqRB33tDvptrQlYVioBQ9ZRC0iGGPlLJVCUE9VmFHchH2czoXjLAYvEXZHDmArS37w oTTfUPQuVFW5ZOHsEd9ETJUuH4VyxkIllLwyuiWkQW WbVUJFAU5PIKxqykLciSFcuVhjDL82iRguKR2NAi2RIyGiYH8oya2FqRQiKj6ZWUGeJL4FMDPsMDDzLN HeHUT9DHPjWeAlGJpwMEReHCRcDVZ5VOVlEEUsJP2AQhCrOBSoEkPuFFOvGIXqGAQidj7GTGQqDOVaQc E5UIEvUQXdXJUuZQpmUBPkQMWqNPV2COFeCMWcSN8X IyMoEEDyKKC6ZdKaQUVdOWWecm0EXYWvWBFyHAleGDEaTEXgBPYmJJejJKPmZRXmBwu5DXPgJTScEP7D KrIpYQRbPII9IAwaWTFmNMXoig0TEIJqMLBsFrR9FjGtYMLwLDPcABkzFYUjOSC5OGLtBILuKABtRU3C OmDpHWJiBIPoEthtOWBdTLBujo5YSBXrUGIxCTKjYB ElNTWnGQEhWCvqGOGfIVR2DgRwPMJpKDPjUD2WMpUbMRZaKNxzKqNoMEYmVPNrku3AIEGoPWWpEdD7NK PvFLSaPSJvKNmqPTZcQXD0GKL0CDXjVFSvSM0FJyGhLKOsWYf0EmZjLVWpBLQtlb7SGRTiAQMsQQYbFX WuWVMrWXHwRVoiZNYlGZO2JBL3AQVxPJLtXK3GTkZb BIFdYDx0VNYeNDWmRAZslr5NWFZwFSZcIZmaZKZsCYLsGCPkPWfvMQXgSLBnXWJgKFNiBMClPG0RRhTu VZEvJwEwEEAzCJQpBPEteo8XWCYiRRAgWPucSLMnTQVyOLNlVOihZLPoSSFhDVMoELWuYIHyXR1VVoHa DQSxQiXnTyMsOCKqJTKspc0ZBEKrYWAyYsR6SAXrPM SqSHOwOWu3gqDafNOjVHu0DH5UY0XivkXnHvlDHh3Mi989HWP6GFEwPf3JO3slBd1oGDPvOESYDw9UZE z0VnAsMUX3EJn8VebuNNNgBBJ6JeivIRSuAXppYMPuIUt+XLl0TSG1Pdy5UkWeDBWbFZBvLtzwJCHdOR L4QoG0TOOwKO6uLBHBVe5+FZtwgSXueJlcFLARNqCfGdF6SKowXQEEOs3L ID Date Data Source [id number] 01/01/2020 10:27:26 PM EDT [facility] Name Value Range Interpretation Code Description Data Milena rce(s) Supporting Document(s) Nursing Note [facility] TUABCn4eZlWDJfVp41/EWVylTMPsb9HtETtvHXn4DScsGFQkL3TsCHR4sZ4wQJV5SVrRCdZxWgPdPZB7 lbm [file] MN5FLVb= ID Date Data Source [id number] 01/01/2020 10:24:10 PM EDT [facility] Name Value Range Interpretation Code Description Data Milena rce(s) Supporting Document(s) Care Plan [facility] TITJGg4uHtZNAvHv49/PPLmiSNMwh1DhJRrrNKp7FUdlPFNqC6QxWVB8mS7eWDQ5HKyHMnXaTbObGOT5 lbm HnHyzIGmPhUPArMfpYAqZgBFazQrqvxNXbVS3EqQX9XAFbU35tIBJxPQHuF7QrAGt1Ss6+CFqfYXE8ep VcnH3VUWRMB61S9qWVxq+0/+QwtjVhzp3JK06JNt9ALATX8ay2UJzSxXi9IH1B/k5mQgiUiQ6ODrEbhk nk8/qjn6mcA6K5/YZBHDLGoPx/+gzQiYpggA6MEtTK H5aqs5XNJrBWRHJF4IixyeaGDdSsgD7xXroelX0HIQBQwUXCp1XslAntErwtw5QwITdPhTaXgpsGsCtt tqIxFStf7e7zm7SXIS614MfA0HhuBWUuDr2W3ScLjTXxBEzGLwvxXXr9tuvUVDGAKg1mkOBSCdGRHoeg IEtctvvU+xUxlqFed7VrFvLcbr7p2lOvwPfTbtDIOM 3FjmFan8cVJNaHjjsHYNwNX0GBwg0uo9a/wm0Ox3AjEi1CIrd/YcPtaRll8cdiDZEEeMh8ZAT3VM/h [file] LEAD QA ANALYST+Cb4UVOJnBJv9L2C7ZNWcTYw1N8NIY1UASPGxDG guLCfqCAHzVLx9Z8Y1HQJxK2GMH2Tmgxlihw2+TJ2BC00BYKDbMAf2Y6B0lVZiD6W5nZhRsIH7CN0QZH 4DgEf7eAXfgQ4+WS0LG4KKJzBsFVm1B1Z5wYBsK3D5qFhKlCB4NA1CAV2EgPFyKDNaxiDrEg0bO5QPPZ mTYcKHCYW2GW6IxGRdOM0BxKFDV7BqjDMzOc9fFQdr zAGhtV7zUp7sHPxaJZ9CEvJYIHtWLJR0TN4BtLWxKS5KtTJRZ1UloWJxMs2sYVoesFUbtz6+CG5HZPZa Yh0HUr3+KTyszkGeCktPSqOwIGNhe9NcDPy1IA9AKI8xlIpzUVM4Pc4GxFX2eWOpA7lDIC8PhJUvN57g dKWwZEKuPs4KZlV0pwCxbU3LRQ83uEZqw1H7CZIsH9 asJUefz66uAEptQMlYHM8nYIULUYzoWSbhVDV0SaXmmycaCLAgAl2ASfTpEBc8nJ4hhTO6HAL8DpwnnI ZwTVmaYoMiHqCiTcH4tPokhko4LGtyEE6dHAdvtfxcLUZyCvb+BEevTYNqFTJdLwoGUEEfdW1iktL2wh HvDTnlbYPzCx2nb1y0HveyQu9aHt6uGVf5GzBtDqAr OXNeOh8gcK45TSuixuThNy2LJlAnTYB7O3JcTckCYXG+XKzlKDckvEs0mXGcBJHrBv7FRFYpIHPwLJNt ICAgICAgICAgICAgICAgICAgICAgICAgICAgICAgICAgICAgICAgICAgICAgICAgICAgICAgICAgICAg ICAgICAgICAgICAgICAgICAgICAgICAgICAgICAgIA 0KICAgICAgICAgICAgICAgICAgICAgICAgICAgICAgICAgICAgICAgICAgICAgICAgICAgICAgICAgIC PnNZRgANIhMQGyXRSnEDGzLQOmQWGlKPWkWHQuCSPjNEAhSFMhLVIcPM2YQYQiWSRjSUZdHRLnMBUeCY AgICAgICAgICAgICAgICAgICAgICAgICAgICAgICAg UWQpROLqKWXjUKLhEMYuKHPbOZAdQLQtFTXgKYFtUDAzBGZdAAYgJIJaRUVfQGCrRMXeTB1ZKUMqSYIb ICAgICAgICAgICAgICAgICAgICAgICAgICAgICAgICAgICAgICAgICAgICAgICAgICAgICAgICAgICAg ICAgICAgICAgICAgICAgICAgICAgICAgICAgICAgIC MmPL1SRXInHHJeXVHePVZbNZNeAAIjSLHsRFPzQJHuQJQrPKVtMPLlJPZlRAAnIZBdHRPkUEFgXSFtFP JwLKMzTLPsKRMlNBQtGXDqPCQzVIKwHTOvHLUxWBPzOBUcGFLuXBGkMEEiWG5RBIPjMSKwUMPoSTGoBV AgICAgICAgICAgICAgICAgICAgICAgICAgICAgICAg IDZrBUKpCCLgOZUvLWIbUSEfDCSgLTDmLVWtXYTiIPWqNUZeUWJmSPZuMSYiFVOtMWUtKJDjAA5WQWHx ICAgICAgICAgICAgICAgICAgICAgICAgICAgICAgICAgICAgICAgICAgICAgICAgICAgICAgICAgICAg ICAgICAgICAgICAgICAgICAgICAgICAgICAgICAgIC ViMHXjOK8CBGNsNACjZRSaMVPoNLQoSGPfMBItIQBvQQCjVZKdMARqULCpGASoBGPvIFMzNCWhOLGsIT BwKNZkYETrKCSkSPSnEDKwRMRbPKZqGSUjZBBcLOXaAEMvBAGbUJHvADZzQKNhHX6BRRPrOYTjGKXyLU AgICAgICAgICAgICAgICAgICAgICAgICAgICAgICAg TGBuYQVnKZYaKRHtHGDnFUBnKAHfBXItSSCeTTVdCHPmUQAfZNQoLFDmFFUgVPQyOAQcUZHcQIPcKC2T ICAgICAgICAgICAgICAgICAgICAgICAgICAgICAgICAgICAgICAgICAgICAgICAgICAgICAgICAgICAg ICAgICAgICAgICAgICAgICAgICAgICAgICAgICAgIC KiUZTrYFHwLY8SOY90uFNxm5Z7QLUbZN3nuab/Eb5JKDiutoYmxNJbEA3JVzEfOT5mxm0SIrApRA5iyr 6YKEyEBqPtU0L6qNRpAYNaCMHCXdHhI56tJGchDj39NSwbLKUoBuYaPXx6Is7ROkRzY9ziZZUcClZ3QK CfQeZcRTljXY2Jx0NnxFLdCSe+Df6DTH7md9EtZYxa FsNtBZ9wtx7FBPmKPqAlP6LflrA3RELeMFYdAa7XLXFqDZPzmVDkReRuZBONZdXgC5CtvS88GFPJNz1+ WUdssvKvPioXIxEdROPba5LgFXj8YD4QDRByDBm8xQVwP1UnYSGPcFDlZIP7KZKhiFohVFKbT8PxACwj Lc3pAGKyPFXuWdagNnAiYFYvSWxxFkPYKAzNMnIbL0 Kbz9OgJoI2KGXxQjBfUVyaXAMmLkA1EI41kSgvUE1AZGHpWCMdKF03RTEsEZBnKx6DAv7DOzOgZF0pgj 6VUuJuCQNbXieXWgc9XDjdHT8FyOGiH1ComIByc4dAZkTlZ8TBLXZbLOXfGu7SZEOnDtVyYZBnVIxaBK 3cIWSeBHUMgTuznlJ3DT4EQM9okbWnNX7SWaBuLr3j Sc3RKuUhE7DwU9JxXTVgCRTKLUbaAD2VXFneRW3yET3Pz0NRrDMvjC2ggy7RRRKuHCItLzqivu8DXnuz D0N7oHqlROZiRnSfEFUUWRbmRG9KYCMwELA3ESGaDLHhZURCGyStV86bAP2UU1Gzf28wEcT3GPXnCdUn AAznSE68fEufkzWscUDhuIocQP0LAg6+DQplbmRvYm pENfveACANYhBsByDAViUrOOFrANOsVZThSyY5SeTfTb2RLQOtEUWzDVBnYxEbTWGzAPTsQOuvXAEtRD X3UCF7FUEdAYKzUB5CDkVtGAKkPoBhMKYpAMSvYNEltj0WTJUuGWHxMFH6PmZtLAPgPYHmOQdfGLPzJI YjHDCrSXEaLPQeMI1YNwEhEYScXIDcSDQdGQCzOIUk ht3EZSAjIBQkIgN0MsJfGISmWRIvLXefXQNnHZHfFdWpAFDvBEXzGT4KFuPlACHfRJX3JFgoRPDlXWSz id6YRZNxVOGdUgAiRsYgFGSpRYPiZVbiFHEnZDOpVqF9LDFxZSYoCB4UCrAcKYKdSBW0MXZrBPVbXHDw nz8LTYJwOYGgSeZhWJAjIMSgDUYhIOeqEYGeIDH7EB VuNAPxWRCuQJ2KMqFcBDKpDVW3DqWsMGEtFOXnld8BRHPoZIYbLtKbNCFmCCQnXTBrVVnfSSTkFDV5AZ G7BYTfAGKhGE7SZpMwBSPmTTawIGytTUHpJSBfvi7HDCXeCCInQCD3PzLcFVFhKMGjCGbnPJTaAQQ1YA X1YHVvSYOoYZ5GJtGbCRVtOHl1PsAeVFHhDKTuxz9F TBCsWYSyJMUqKCOyBGMfXLAjTSoxSAQeLXClAprmAESiJWGyTB4PXrWmRIHfDwR4QTJiRELrMIFcux5N xGSupHtjzl5TBKiTXf7JoSqhROK4BMhwOo9jwINcSHYrPWRCGb7ZkkNsJVTwMBBDOEsbIFWeLDw5BXSi CUV6FWD8QqZwKACcPpQkC1EmCGroSPQaAgDnHdI1ZY B1EFUdPfzxADv0QjPjNRGjAaPgGdKeO9KyO1RwXkB+RG5wAKz+Fz1Ti6HyvqT0rjAgVIoiZLx9UN3PRD DSO6CUGw== ID Date Data Source [id number] 01/01/2020 05:52:35 PM EDT [facility] Name Value Range Interpretation Code Description Data Milena rce(s) Supporting Document(s) Nursing Note [facility] AXQFFa2iBaTPEzXb70/IGXoeSBBkq3YyAAplRMh8AVkgZRVdL8JuBML4nX8kSDD9RKrOYvZyWxXuWWX7 lbm [file] [employer]+eXN4wrRd4JJtbUn4Cxh6rVsg7g0wJ/PsE3dpu0z rN1N5eIu5BUd3fLR7Q03lZO/AYfuk1PqzAY+GVi7hFnCJqa0JSPWNe8rt6CDFqhjb/4idZoJrjDWN98b iXCGlcbxueVW38PuYkpwblFzjEEw0b7Xv18xHS4wxFPj+/3daJ9Hox9CsZ0RIhK3hEf4wMKLQfdt3s3j Bod6qJR1fHYtwsq75GJmK4OxjWd9Lt4qdK19jJP5sf 4zh8MvicUrqM1enTTdGcEFZCA/Ypf1nNYIiR7HG8qCr899rUP7rRSB0RqdmKIiS5qKuekrCoVo6fXFZB 1tJ6hLsdRhAoJqpMA06Y2qEXaNl/3dA3tNmG6tDpn7jvCItLUlm+QWjGPWw6/QJFwpn6meEeR+5Mx96G J17iYZPjAeX29d2yFennzcMsF3XsVWO6NvEmQcaQCA udAollfOHyreRtxgeBGP3mu07Q0sh39zJ9Q7TmQJO6Hui5bOO+i36DEf7gAmZiF8AbfxsPywrmSIwY4c pXNOekjWdcOlbZ2tCrG6owwR6N71A92IE9er7o1mKC5ll7ih4JYBSgG8P9TU6lYxFQQJdt3m93WjF8EP 6oOm9znlA2eAxv+4nZc692BdGnAC/SHwxFM0+DaoNg xHq7bcjEp8uLLFHz4Z1dZXacMS53rrMaWpCQp60zutpxBUAiTdfE3SAZ37Ja/sami/zKnBPLtZS0qtyrT [file] XmHIwjRPLgUn4TCGCVG7PXAy== ID Date Data Source [id number] 01/01/2020 04:00:56 PM EDT [facility] Name Value Range Interpretation Code Description Data Milena rce(s) Supporting Document(s) Progress Notes [facility] XMDYOm2fWjPRNyKx42/OMEjiBQJbp4VmBFvxUEb8KRbsDBPsW1KwVQE5oQ3sJGB3LJcKDbWaCrZnKBX3 lbm [file] AgICAgICAgICAgICAgICAgICAgICAgICAgICAgICAgICAgICAgICAgICAgICAgICAgICAgICAgICAgIC AgICAgDQogICAgICAgICAgICAgICAgICAgICAgICAg ICAgICAgICAgICAgICAgICAgICAgICAgICAgICAgICAgICAgICAgICAgICAgICAgICAgICAgICAgICAg ICAgICAgICAgICAgICAgDQogICAgICAgICAgICAgICAgICAgICAgICAgICAgICAgICAgICAgICAgICAg ICAgICAgICAgICAgICAgICAgICAgICAgICAgICAgIC AgICAgICAgICAgICAgICAgICAgICAgICAgDQogICAgICAgICAgICAgICAgICAgICAgICAgICAgICAgIC AgICAgICAgICAgICAgICAgICAgICAgICAgICAgICAgICAgICAgICAgICAgICAgICAgICAgICAgICAgIC AgICAgICAgDQogICAgICAgICAgICAgICAgICAgICAg ICAgICAgICAgICAgICAgICAgICAgICAgICAgICAgICAgICAgICAgICAgICAgICAgICAgICAgICAgICAg ICAgICAgICAgICAgICAgICAgDQogICAgICAgICAgICAgICAgICAgICAgICAgICAgICAgICAgICAgICAg ICAgICAgICAgICAgICAgICAgICAgICAgICAgICAgIC AgICAgICAgICAgICAgICAgICAgICAgICAgICAgDQogICAgICAgICAgICAgICAgICAgICAgICAgICAgIC AgICAgICAgICAgICAgICAgICAgICAgICAgICAgICAgICAgICAgICAgICAgICAgICAgICAgICAgICAgIC AgICAgICAgICAgDQogICAgICAgICAgICAgICAgICAg ICAgICAgICAgICAgICAgICAgICAgICAgICAgICAgICAgICAgICAgICAgICAgICAgICAgICAgICAgICAg ICAgICAgICAgICAgICAgICAgICAgDQogICAgICAgICAgICAgICAgICAgICAgICAgICAgICAgICAgICAg ICAgICAgICAgICAgICAgICAgICAgICAgICAgICAgIC AgICAgICAgICAgICAgICAgICAgICAgICAgICAgICAgDQogICAgICAgICAgICAgICAgICAgICAgICAgIC AgICAgICAgICAgICAgICAgICAgICAgICAgICAgICAgICAgICAgICAgICAgICAgICAgICAgICAgICAgIC TlOAZfZVTgUICtHXJaNXh2R4noRGMhWGFsIC2uJHq3 Jz8+ONoJMbGcACA8klOjhT0KKB3po6AiMXzdODGjk1XcOXw4UT8UDYBlGWdcVP5QQAanwi5XXTQiJODq kAUEj7dkDwQzLII7HKQyFhrvUY8KPLAeW6sooiLlHPBdNMXDIQ9KWgZuB4DijM12ADPPCz9+DQplbmRv AjoQDaS8NFAfp2IoZNi8OZ1MOQUkRzesx5XtEeQmVL JFFVzeWP8PYCP7NGP1HXFzRc9TVZAyG584duXjLY8PLk2NBzEjZY2dlj7AZaJkNOJjEdfUKca9RJljSU 0ZqVDeOBeOxo3htwUspuHEp7MhfdKmlMAIXYXoaNWkKHDmy9TrtsMeyWJjHM7qZD6oOKKlHNWxWmR5II QBRZ3SVJAuWGHbuZFyKCNjCWUVKZ2DZGmzLGD7Gyko nsSpjAZnHFenNB8XSGVesxDvTbTrKTEYXTb+Bh7OYI0ub7KfMAmnTcFuRY5xyl4SRGvIYxVmG5A8uJWn H4D9LBhiFg2ULQTeACAzBdRhLNWSZSfeME0MKL1sgaL2TG2MpEUuHEWvMSOhxNQjRWp3K92dpZBuKRfv CZ9JLNR+Nacho+Qh3UNCVbPVBpJTHgLmAnTBPAAkJoF7 MgG3OWf6NkK1HnNB34mRbkxdRfWDajCC5JMB2cFHFwCWAKEA2HzMOevV8ntaIoLIFbKHKSUmXpO08tnW VkKQLmHFO7PTUwHu3KMQNgP4IxarIeuGcwohRbVAVzTMJCFL1VWDxgidDnwJLixDnqCR19gVswRW8ZQk 0WJhZiFH4lxl8JyIMhDx7MOQGqKD5ICRTtXYPkJKVe YFI5ZGLdNoEgYIqgNFXhZIAeURJ3HIJeBBAgDB4PVyAwFHKmFqQmNITjKLNrNFRnwu9TNVUxOHZpUBb3 ZdAeIDViIMIgNIakALTyRXReKLP9ZWViSOFoYO0WHpSqMBDtHIJnLVGtJSDbOZRkuv9XXCAvHDQbEYTu DhBiTFKfKPFbXObzOUZmTJDjCKv4URRxKOXnOG1VJs QfBIEuBWX7OuGvKPVaXTUgep4AVPArABTvJja1QXQaSENlYRClTHwjRMPxBOKhRZA7UKYyVTHvQJ3SJl ByJRAmZEGpSUNcDSYbYHEwqs5YHSGoCZVmYZK7ODLsPXPgJDEcBIseTEHbCJT0LEY4LESqTOFsWZ5IKh XgNTPxFGP9HzShGVLcFXSmhq3EWTAlQUBqFeI8UsEf KHIeMAZhTWgkVLShKPX6YdGhEUFkYYAhNK4TAsOyHXDpZIh7GNsgDVVgQGZvdg6GHELlUXNnSRKsWLCg LJRaVFPfUBfmZNRxALP2HOfuOEPyZEHbQT5MEdZyKBJrMIp8RjWmWUZnWNMusd9HUIFhJLGoPKuhLbPr ZRLkBVEuUAzhHWLiCFO8PQr1GXTtVUSdOM2BTjImPV EcDhLbElXbWPDkOCNdkv3OMWIcKSFzJMGiSbAaTUWtKCGnSZwoWCPmWKAhJTGqYYUqKLSiAB7CUrUxET McDvWwPMBzSMKlGINuur5WCOCrSEDpBkO0DsHwQXWrAEYlLIl4caZvpBZfBLs8XQ6SM9EollJuEpyKKv 6Qb214DKP9ZXUjHw3ZY9ixKo0xHKWlUAXGKr3ZLYw3 WyHkLFFzMWHiJOqyTzYjCpW5ZNZnKTX7X9PlJVMmFUh+GUggTaGlFBQ6WbFzAXIaDJPaGFo4IcFkGIa8 YiFwCgQnBi9uFMXIMe7+RGchcFGshLjtUBSTRrPiAREgJGyqJQLCSc9E ID Date Data Source [id number] 01/01/2020 03:59:31 PM EDT [facility] Name Value Range Interpretation Code Description Data Milena rce(s) Supporting Document(s) Progress Notes [facility] RBJNFv7xFkSRHjZn56/CIQtzYBBwx7GuTTzeAOr2DYipXDOqL7TsXLV6yX5jDPK2FTvYWhRvWwJmHFJ3 lbm PhXveYAeIpGJWeHnxQJgInVWuuIskhuZWuAH7TqUO8URDqL38yFLDsSWLeB5FyAIEhGIU+Ct7UPUBibZ RrBH4AEjwB0Lixn0k39D8L/bXzu29ValMxSClMwgQmkrDi1uvdFNgEqzvGUp3E/shkOYX//EZYju7O0k KtuMv9H/nT3J4cob3pa7E145/bHY8362q1q/81zSTr [file] DHj2TBtvuH1J6LHO8oZimq0L+xesg+BOUbkyoyU4QhVRzIkIjiSYaGqlN1JvwB2MyRi+SV7IWi+nK+[employer] [file] AgICAgICAgICAgICAgICAgICAgICAgICAgICAgICAg ICAgICAgICAgICAgICAgICAgICAgICAgICAgICAgICAgICAgICAgICAgDQogICAgICAgICAgICAgICAg ICAgICAgICAgICAgICAgICAgICAgICAgICAgICAgICAgICAgICAgICAgICAgICAgICAgICAgICAgICAg ICAgICAgICAgICAgICAgICAgICAgICAgDQogICAgIC AgICAgICAgICAgICAgICAgICAgICAgICAgICAgICAgICAgICAgICAgICAgICAgICAgICAgICAgICAgIC AgICAgICAgICAgICAgICAgICAgICAgICAgICAgICAgICAgDQogICAgICAgICAgICAgICAgICAgICAgIC AgICAgICAgICAgICAgICAgICAgICAgICAgICAgICAg ICAgICAgICAgICAgICAgICAgICAgICAgICAgICAgICAgICAgICAgICAgICAgDQogICAgICAgICAgICAg ICAgICAgICAgICAgICAgICAgICAgICAgICAgICAgICAgICAgICAgICAgICAgICAgICAgICAgICAgICAg ICAgICAgICAgICAgICAgICAgICAgICAgICAgDQogIC AgICAgICAgICAgICAgICAgICAgICAgICAgICAgICAgICAgICAgICAgICAgICAgICAgICAgICAgICAgIC AgICAgICAgICAgICAgICAgICAgICAgICAgICAgICAgICAgICAgDQogICAgICAgICAgICAgICAgICAgIC AgICAgICAgICAgICAgICAgICAgICAgICAgICAgICAg ICAgICAgICAgICAgICAgICAgICAgICAgICAgICAgICAgICAgICAgICAgICAgICAgDQogICAgICAgICAg ICAgICAgICAgICAgICAgICAgICAgICAgICAgICAgICAgICAgICAgICAgICAgICAgICAgICAgICAgICAg ICAgICAgICAgICAgICAgICAgICAgICAgICAgICAgDQ ogICAgICAgICAgICAgICAgICAgICAgICAgICAgICAgICAgICAgICAgICAgICAgICAgICAgICAgICAgIC AgICAgICAgICAgICAgICAgICAgICAgICAgICAgICAgICAgICAgICAgDQogICAgICAgICAgICAgICAgIC AgICAgICAgICAgICAgICAgICAgICAgICAgICAgICAg ACCsZBCpBTMdHDOvCYWiUGGfXLAxZQWpSPQdDODqUSWuFSPmOMGlUXHpSUAuCVByNJHwBTp3L7xzMKOg ONOeTH4bGHc5Zs7+LOpQAuQsKYP9qyUzaN4PVA5ke9KhIGblZITsq3OuNBw1IC7SKHOdDQbqWO6OPDfw la8ROWGaNSRazMHMc7dzGgJzXGQ7JKPeHgmgZI2QMZ IeA4shjeCgGTGzNNBRCWtjHRKAQQtwNUKYOP0LZqZlE4XlmL81LIUMLb1+DQplbmRvYmoNCjMyIDAgb2 UaLYc9PJ2CDUQiJcltx9KrXsAxNQXLYZwlQS3RGNN3CPPxTVBuMk1JQLJmF962oeKyCZ2KJi2LXwXlKA 2yfv0SRoIbQYTcKhrDQfn4RIvxBW1XwEJlWHzMjd5k kaXhhmTLu2ZqbgPxlOCCFGRaoQFsVUHwc1BbmqFinMHiXY5vAL4zPJAxEZGaJcP3KJZSLE5XBSPgFWYq bWFvQGTtCGPSUB6AQHtpUCZ5CgvlgrMaoUQnQMenHN5ZSYTxmjFrIsBzKYMTWPo+Jk3AYF3rw9QuQWmy MZDnSP6xhr1DSXwBMwCoP9B0kFSbY4Y4ONpqOr0MHQ UlLQRbAaXwQAIIWYabQU6GKA3grtL3SK6CjQZgEBMmKZCruYNlWAa6P31sdFNrFBhaFL2HVAJ+Nacho+Pg 1LYTVzOXTyHKGcZjIlGDFCRaGaA6VaT1PTu9YgC3KsLM89vNxcdkHmHScoQB2UAR0iQJNsQZNKNY5FoC PemX8vagNhIyKmSYEUAvFkQ68ehBWeGGGrYEYaAPDy Wa0PWZOdP2CycxWhtWmcnzSsYKXuEMEFUD2EMYzvqzZdlOMlnTiuSM37pZflIV8JVb9YBkXmAZ7sgb7C cWMiGt5ZSAAbIO1UMVTeEBKnYPVfDBX9HRPvOoNtTHqlMCShLKLsOIM5OODoBFZlYP9XQsZeUFNyXjA4 ILjcNPWoXBJpcu3YZOJsLAMjOaU1RLNdODInYAPzJC jjMSMtWIFgYSC7BBAeNVRmIX3RZlEyXIBpNVSsWZUaSSZoMSZqts7TOKRnFDFjYzX2UOJwAXFwKCZeDM frTIAfZCH6EyrtYZPoVWOxFD1NNzWoEVMfYZK4LTMtWFHuICHlyi0JCACiDYEuTQC3DnAyCJLfICVzTR prFGVyVAF9LnXuGSYwOEQnPL0YIuEaLWDbUHX9FoVo CVEuJEJtaz8LACRpNFDtQtx7BlUmSNBmAMDhCFvsQMUtFSL7RWYmWBAuNJKuGY6EMvBfUWKePGjxGUBo VRTjEIRqff7YETBpGXVyFTSsXcRaCUXuEKPgIRxjMUEvVXM2RvxjCQEnMMByUC0OIuAgITClOhG5Eqgg NYTrSSWbxl9NKLUaVHArOJD8VYKmGTAfMKDiIKcyGB WbREEoVrD2ZLInAMXvFF2IWhCkCRTaWfY5SISkATGwDXIcfg0MOWPqDBBuDWU7SZAtMMKuBOHpYLwxFK YjBODlOSotLTBcDMFqIA1XVmQzEBVvYwT5VVGsDIByGKLqom5JKIQsSEMpHar4LbLaYOIxGWQuBOehAB IxHNLvYME2ESHxIFRmYQ2VRgAwKDZbEqVnSUqdAZUh SEZxab8XFFKxJOVpSRX7UjHpPVTtHZUxZWavKLHjOLB5JdF6YZVuJQZoEX4FYyDsXMYgQlLvVXVmJOXk IYYdpg8UJZOsTSFqKPJ2VgHxQUPtJLJhXQeoIEFxCTQ8LZH3WSCeUQRiSM0QAhQwKXVeWmh1KaSmEMVh NBHrnx4UPLKuDNFrEwE0UdEkTQQuBPPoBAsiOUIpQN J5FqssZBOoVEQrRJ7OPxViKNxrOICAVpe5ZLdbW2m2KXUnJT6HF6Bql9GeBeGeCVFMXEgoJL1wlyKlDA DbQn8BG0yLQgo7GYFgZCM0FIGcMTqmRVL7WzRwMhA2DFwxOjI9EZQpQr1nNJivEaTtRpVlF8H1BHL3HT OhMRB5IxH1ABOtLpd5HlRlEfZrRL0WLf1XLbY3JKK4dXDpFt5GCay5QjWNWxUwDD1NTWz= ID Date Data Source [id number] 01/01/2020 11:30:12 AM EDT [facility] Name Value Range Interpretation Code Description Data Milena rce(s) Supporting Document(s) Care Plan [facility] WAFMAj9jEyHGOxLz44/POMopSQOpg1YbYSaoEOg5MOqiGHOvB1SlGNE9oE8kFYN2IDbOOkFxZpJaUCP7 lbm AkKbwNEjPdZELoYaaNOaMwFUjyEmnraLXtHV3JuUR3FUKdH26iCYGnVXEpD0PoFXCpXDD+Pn5DPXXllK CgXQ7JTcjR3MiJl4xVQK0U4V/NImR15o30H8JpoAf5wJY4g6t3fUiDwsK1oguZ0BP41T7cKSag2Z6RjO IQ+0AOdne+by4iXegD4a7zPT1jbIZ/21ebSvawYD/+ dGsrkKze676eOlZW0V8wlMM/KvHlgUGqrDTokU+HZjK8UoJsdiYn4C0EZg/HC8xah85DlvDqOp8L3HhW O7/ujOfNmH62FGuzHGc0vIPsck4ab198RpE/mNDa8/WwMGHBNFMzVBtXvsGVWoRrOxEhPKCzLT8QKkI3 IADPBBu7oHWlBJcj11pDJHVITuQH+LQQRUUmNlBPcH [file] 1Zos3ooihDQmPp+cU/wYeh80/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 [file] Gnxthv4JzQPRrv0YEyTVa6nS16LvE+A76ZavuJ5O1nfi2B+s8JicKl8XRx86DBTBCaYv84au46Q4+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 [file] 3OIuO5EDO2yVNbUq9PGxQ6IYmZUlOuII7TNNi= ID Date Data Source [id number] 01/01/2020 11:20:03 AM EDT [facility] Name Value Range Interpretation Code Description Data Milena rce(s) Supporting Document(s) Progress Notes [facility] CIXFUp5xNjQJAhQl72/BDPpyABRrp8GyJVhfGZk1YJwwVDFrT4SzLGL3eX5sTYT8MHbXPbMbWvVvAAE2 lbm [file] silva [file] AgICAgICAgICAgICAgICAgICAgICAgICAgICAgICAg ICAgICAgICAgICAgICAgICAgICAgICAgICAgICAgICANCiAgICAgICAgICAgICAgICAgICAgICAgICAg ICAgICAgICAgICAgICAgICAgICAgICAgICAgICAgICAgICAgICAgICAgICAgICAgICAgICAgICAgICAg ICAgICAgICAgICAgICANCiAgICAgICAgICAgICAgIC AgICAgICAgICAgICAgICAgICAgICAgICAgICAgICAgICAgICAgICAgICAgICAgICAgICAgICAgICAgIC AgICAgICAgICAgICAgICAgICAgICAgICANCiAgICAgICAgICAgICAgICAgICAgICAgICAgICAgICAgIC AgICAgICAgICAgICAgICAgICAgICAgICAgICAgICAg ICAgICAgICAgICAgICAgICAgICAgICAgICAgICAgICAgICANCiAgICAgICAgICAgICAgICAgICAgICAg ICAgICAgICAgICAgICAgICAgICAgICAgICAgICAgICAgICAgICAgICAgICAgICAgICAgICAgICAgICAg ICAgICAgICAgICAgICAgICANCiAgICAgICAgICAgIC AgICAgICAgICAgICAgICAgICAgICAgICAgICAgICAgICAgICAgICAgICAgICAgICAgICAgICAgICAgIC AgICAgICAgICAgICAgICAgICAgICAgICAgICANCiAgICAgICAgICAgICAgICAgICAgICAgICAgICAgIC AgICAgICAgICAgICAgICAgICAgICAgICAgICAgICAg ICAgICAgICAgICAgICAgICAgICAgICAgICAgICAgICAgICAgICANCiAgICAgICAgICAgICAgICAgICAg ICAgICAgICAgICAgICAgICAgICAgICAgICAgICAgICAgICAgICAgICAgICAgICAgICAgICAgICAgICAg ICAgICAgICAgICAgICAgICAgICANCiAgICAgICAgIC AgICAgICAgICAgICAgICAgICAgICAgICAgICAgICAgICAgICAgICAgICAgICAgICAgICAgICAgICAgIC AgICAgICAgICAgICAgICAgICAgICAgICAgICAgICANCiAgICAgICAgICAgICAgICAgICAgICAgICAgIC AgICAgICAgICAgICAgICAgICAgICAgICAgICAgICAg ICAgICAgICAgICAgICAgICAgICAgICAgICAgICAgICAgICAgICAgICANCjw/yTFtD4tesZEbdvZ2P1kp Bo0NLv9GKO8oq2HcFWAvWGnlwiTjQuxTFoHkEOPrFcbDGxv4EByqFT5XsAKbB2GvZ7TjDLdaEM1ZMCTp RYAwbPMhNPHoBMSpBqG5SGTfPUmlPZ0KhFJjIMhpMB GdHIPvDM8LYEOjS613rgMqHV4MFg1OEeRhTM7kup1RVuTsICNjPxiYNns8FWgpTF5ScDIobUYaFxRcAY SVWlAdO5bxk2BsEnYoRDTYIFcuIM0Gb3UkyDSfVVi+Ve5KKO1mo5RfEHboXoEvHB9jte0VKXeAWpYfM5 MslHehRQHny6nuPSMoSQ5ibFNxYXN7CVtlcNJcJVOD DQPiGDSwQKZ4IGQoRbK3OuOqRxHvAQU7DLmtUB5tQIocDZ2XFLH8LEpwOQGfFPJnN9pSCbDlGZjpHQBz nLgjFE9IMsPpX9ZjgjGpwTFyEQYzEIHCLf5+VLvhewTrRxmQBrR6XMPvq6FrRDt6TU6ZZUNpSYinHH6Q EPHhoB1uCHhlIK9ZIsMlArOsHNEHZyCzM24yrSMqLX p8A0JwEoTzCETwKsouWKFzKZxzFiOzIAPiFxQvRXptEJ5+ID4+YSdvXL6BOKdkphCxQQMjVq4OCSLiDB OnWQ9eFZTcXDMuW0R2qSqfNHTMQzQdI1ruzbnwJI2mAMCkL156cAuztkXtNFT0YEJmFz5KJJPsTKR0ZB GukCJoVuNxSHASSMexNW9PkMNoOTO9oD7tSLdrTJZl ZBNuZ3lSDwWhvUjlMF01nUwwtfXgcLBhVLh+Yq3PYU5vv3CwXMw6ogOcKXenEKW9OZivNZTtFTRnDNFa ZZH3VSL0ZZOPDvOuHRLsGLDvNLlyAVTkJIGszs9ZUFBnRHIeXHD9ZPHuRGWxTXLqGJurXGZbLTQqGVCl VRYkMLEoPL8XCyOhFHXbJUZnVHmwWXJaNUEnzn4IHU PySQGaGTC5QUQkYMQlWIAbRAddJSNiKVHrHRw9WWJgOZSzXG4WCzKlTNTyVTK3GeSnOJXxEXZoxd4MAY MkQRCcAdacPIOdJHNyUEZbFVkuXVCvRYNrFOH5LTTtTNNjDU0JNfXjPBTsVHE3BbznTBVzHEEgjo3DTY NuZAGrDMN6NWNgIOWeMLYrIExtWNPqCSV1TvR5WCZc RBCiCN1WOmYbYMGrGPO5JTAdLPJiXJAsii3QXMWyIPPrKtvcSsKnTZJsLOOnYJrjRAVxTDX3AWAnTXUm OSGkSW6NSnLvLKOcUQaaTaHrFKVhQEGlet2UUZUiWWQbHkHaRxMnIDPeUJBfOUpeQKZsQLQ1FTIfJNWd EPNvIZ7ZIiHjCPBoLJy2WLOtSKWmSREhkq5IEDIqCH PwCHznGHOxGICdHWGeQUauHDWrBYU1UjhoEKYqNXVpCO0RTpLoEOIwWFn1RXJdYHEsXSEkvt1TQAKhVL XeTIGjSGYbHAJtCMWkNWdcWVGfHJOzXUUfPMMqORFyJT3RLwUbWADbKbT9WGwwTBDsWPGlos0NVDCoKI OeJhO4LYKxBAQkAEVfXJhuDQNzIIBcLcR8ZDWrHEIw RC9WThYaAPieBPIKMsl6DAveE9p6OTDhRY6KD2Cdp8DuUktnURLCEMdxMN3srsXcDROyTz5QL2qIOvr1 FeG0JJAqBURdQSPlEYz1ZyBxJhCwBdN4ITO1R3YzTS4bIQyxQhwrHTT9ShD6HuQuPTXiLGIbLuR4Pxo3 WPBrXIDmWzFdLT0LAq8EBqN8EHB3oHGaVp7WOhK1RqPEZjVrFP0QNCh= ID Date Data Source [id number] 01/01/2020 07:34:00 AM EDT [facility] Name Value Range Interpretation Code Description Data Milena rce(s) Supporting Document(s) Triglycerides 175 mg/dl 30-200 Normal (applies to non-numeric re sults) [facility] N-Acetylcysteine (NAC) and Metamizole nettles ve the potential to falselydepress Triglyceride results. Baseline values before medication adminstration are recommended. Cholesterol 162 mg/dl 0-200 Normal (applies to non-numeric resu lts) [facility] HDL Cholesterol 47 mg/dl 30-70 Normal (applies to non-numeric results) [facility] N-Acetylcysteine (NAC) and Metamizole nettles ve the potential to falselydepress HDL Cholesterol results. Baseline values before medication adminstration are recommended. LDL Cholesterol 80.0 mg/dl 0.0-100.0 Normal (applies to non-numeric results) [facility] Cholesterol/ HDL Ratio 3.4 0.0-5.0 Normal (applies to non-n umeric results) [facility] LDL/HDL Ratio 1.7 [facility] The above 6 analytes were performed by [facility] [id number] [address] ID Date Data Source [id number] 01/01/2020 07:34:00 AM EDT [facility] Name Value Range Interpretation Code Description Data Milena rce(s) Supporting Document(s) AST 53 IU/L 15-[address] [facility] Sulfasalazine and sulfapyridine have the potential to falsely depressAspartate Aminotransferase results. Baseline values before medication administration are recommended. ALT 100 IU/L 16-[address] [facility] Sulfasalazine and sulfapyridine have the potential to falsely depressAlanine Aminotransferase results. Baseline values before medication administration are recommended. Alkaline Phosphatase 83 mIU/ml 50-136 Normal (applies to non-num giles results) [facility] Total Bilirubin 0.30 mg/dl 0.20-1.00 Normal (applies to non-numeric results) [facility] Blood Urea Nitrogen 18 mg/dl 7-18 Normal (applies to non-nume courtney results) [facility] Creatinine 0.83 mg/dl 0.67-1.17 Normal (applies to non-numeric resul ts) [facility] N-Acetylcysteine (NAC) and Metamizole nettles ve the potential to falselydepress Creatinine results. Baseline values before medication adminstration are recommended. Patients undergoing treatment with phenindione will have falselydepressed results. Patients on phenindione therapy should be tested with an alternativeCREA method.Toxic levels of acetaminophen may lead to falsely depressed results forpatient samples. Glomerular Filtration Rate >90.00 mL/min/1.73m2 [facility] GFR Reference Ranges:Normal Function or Mild Renal [...] of Health and the National KidneyFoundation. The Dodge method used in calculating this result is traceable to IDMS standards. Glucose 94 mg/dl 70-110 Normal (applies to non-numeric resul ts) [facility] Sulfasalazine has the potential to false ly depress Glucose results. Sulfapyridine has the potential to falsely elevate Glucose results. Baseline values before medication administration are recommended. Calcium 9.1 mg/dl 8.5-10.1 Normal (applies to non-numeric resul ts) [facility] Total Protein 7.1 g/dl 6.4-8.2 Normal (applies to non-numeric re sults) [facility] Albumin 3.3 g/dl 3.4-5.0 Below low normal [facility] Sodium 140 mEq/L 136-145 Normal (applies to non-numeric resul ts) [facility] Potassium 3.8 mEq/L 3.5-5.1 Normal (applies to non-numeric resul ts) [facility] Chloride 107.0 mEq/L 98.0-107.0 Normal (applies to non-numeric resu lts) [facility] Carbon Dioxide 27.2 mMol/L 21.0-32.0 Normal (applies to non-numeric results) [facility] Anion Gap 9.6 7.0-15.0 Normal (applies to non-numeric resul ts) [facility] The above 16 analytes were performed by [facility] [address],[facility] [id number],[place] [address] ID Date Data Source [id number] 01/01/2020 04:58:46 AM EDT [facility] Name Value Range Interpretation Code Description Data Milena rce(s) Supporting Document(s) Nursing Note [facility] QGAPGm3mBwTVGmYc69/[id number] lbm [file] /VwTrpVdP/sf+6QUz/rAnuOUzRxHu7aPNO6yHeN+rodríguez [file] RiZjEwMjA+JI4hWNk+Rx3Yu0RtrsO2teQxNCcwERj9IF0EAVCPU4MZYv== ID Date Data Source [id number] 01/01/2020 12:06:07 AM EDT [facility] Name Value Range Interpretation Code Description Data Milena rce(s) Supporting Document(s) Care Plan [facility] BLFDUl5zZbXBLmEg54/KBNuuJWXzk3BcUMdsFPl0PMliHPQwK4ZjVDA2bJ4fFCH7EFuEZhCrHgEzQLS0 lbm [file] UsINCyBDKuUkJrXaSvZiUvIF6VUg7ZAsO9QRY3aPVbCa1ERnO0LEaIReVoCN0VNPk= ID Date Data Source [id number] 01/01/2020 12:02:47 AM EDT [facility] Name Value Range Interpretation Code Description Data Milena rce(s) Supporting Document(s) Nursing Note [facility] ZJAPGy8oCyEZDkHg24/NMFxlHVFft6SjVBwnPSo4GOjyUBSdZ1DfZMB7zZ2aXKE9GNwEEaSjUdZyXVU6 lbm [file] KqY8CDU8sHQtLo1IJiXoTTPBAhFlJX5LHZk= ID Date Data Source [id number] 12/31/2019 07:11:32 PM EDT [facility] Name Value Range Interpretation Code Description Data Milena rce(s) Supporting Document(s) Nursing Note [facility] ETYSOn6lMmZYTvKa30/IGYyqKKTcz6PyBEzdQWe7MTkpBBEvE2ItYLY5jQ6zBLV3QHgXWhHjQqDiUWB1 lbm [file] NTM+EM1sRAq+Xm9Fc0VnpvO1yxMkBUetJZV3Tf0PYQVPT2LAIg== ID Date Data Source [id number] 12/31/2019 06:56:06 PM EDT [facility] Name Value Range Interpretation Code Description Data Milena rce(s) Supporting Document(s) Care Plan [facility] KBFQSf0iUpCOZbVl64/VZEzwKYSki0EpCZfaAVo9MPhlIQUwK3GxWDN0zA8kQXG6UPmQAzWpUpBgTUQ1 lbm [file] ICAgICAgICAgICAgICAgICAgICAgICAgICAgICAgICAgICAgICAgICAgICAgICAgICAgICAgICAgICAg ICAgICANCiAgICAgICAgICAgICAgICAgICAgICAgIC AgICAgICAgICAgICAgICAgICAgICAgICAgICAgICAgICAgICAgICAgICAgICAgICAgICAgICAgICAgIC AgICAgICAgICAgICAgICANCiAgICAgICAgICAgICAgICAgICAgICAgICAgICAgICAgICAgICAgICAgIC AgICAgICAgICAgICAgICAgICAgICAgICAgICAgICAg ICAgICAgICAgICAgICAgICAgICAgICAgICANCiAgICAgICAgICAgICAgICAgICAgICAgICAgICAgICAg ICAgICAgICAgICAgICAgICAgICAgICAgICAgICAgICAgICAgICAgICAgICAgICAgICAgICAgICAgICAg ICAgICAgICANCiAgICAgICAgICAgICAgICAgICAgIC AgICAgICAgICAgICAgICAgICAgICAgICAgICAgICAgICAgICAgICAgICAgICAgICAgICAgICAgICAgIC AgICAgICAgICAgICAgICAgICANCiAgICAgICAgICAgICAgICAgICAgICAgICAgICAgICAgICAgICAgIC AgICAgICAgICAgICAgICAgICAgICAgICAgICAgICAg ICAgICAgICAgICAgICAgICAgICAgICAgICAgICANCiAgICAgICAgICAgICAgICAgICAgICAgICAgICAg ICAgICAgICAgICAgICAgICAgICAgICAgICAgICAgICAgICAgICAgICAgICAgICAgICAgICAgICAgICAg ICAgICAgICAgICANCiAgICAgICAgICAgICAgICAgIC AgICAgICAgICAgICAgICAgICAgICAgICAgICAgICAgICAgICAgICAgICAgICAgICAgICAgICAgICAgIC AgICAgICAgICAgICAgICAgICAgICANCiAgICAgICAgICAgICAgICAgICAgICAgICAgICAgICAgICAgIC AgICAgICAgICAgICAgICAgICAgICAgICAgICAgICAg ICAgICAgICAgICAgICAgICAgICAgICAgICAgICAgICANCiAgICAgICAgICAgICAgICAgICAgICAgICAg ICAgICAgICAgICAgICAgICAgICAgICAgICAgICAgICAgICAgICAgICAgICAgICAgICAgICAgICAgICAg ICAgICAgICAgICAgICANCjw/jLTpX5zssDTxgbX6L9 xkGa3FVn3JHC6mq6GcBVVlRBswkrLsSzwZDnBuTOAnNqsZXyz3CThgRA4IfAXyY3SnX5UeZJdiIE7AAO ThGQRwmXImQMXiTEPuShD7QPNjDKkfBX0OqNGtOSoxPCNzZEQxPsHwGIViKDBtNLZkVXGgHFUZYG2DOs McH4UjmN87DMMINr3+EVakbfUgTfwSXoAcBEAya6Ay VPf9OV8FLSVdUibjx4PbTgGxJKPNNMnaMN6TEZP7INWaPQOcOg8ZHOPeG223rgAkRL9SSm9OUnUbRW2x ka2GNiLcKYSiWsoZSuv9LZbqLV0TlMSpSUpLFLBcQXVvUN7lKbczEA6efkL1RIWmBCBbXMGKClYdaPGs EU2sLf6jAQYqSSZ6DuH5QGWFLG1HAXYsMADtuPUhMP QdYAGAEW6FPLaoMPF4GiafffHqhNJyXIujZJ0AVHPhbhJpWfVvQMDUFGu+Pp1VIH8cl3SaQNazZaTmNE 7rwg5HGLfGJgMtG5G1dIOsM7O1WZsoIj9TYHWxQOFmUsjgGJXYNIuvLH9PAY9fccE2MN9XiHTtUBUxGF OmeKZgKBd4V33daRPhCUvnFC2ATTB+Nacho+Dw7CCRWg OZKoOFYjMdKaFBHHSrWpQ5UlZ8ABc0GcY1DqNF97bVdgmlJbUQfqWA3NQM6dUGUfMKASYU3XeGVqdO1w grYwRNIbPAYQRgMgJ78cwONeKXUlCGBuYPYdIi9QNVJsW7RbvsVjzYmuwqZcHAKkJFMREQ2QPDiqdpXq rPOfiTahZC74rZhhMD8SJg6VYuZlVS0sxp7LtYXgDs 1IJCAzFE5JONYhEFGgFKAwISR4GIHnJmFfWWfjNGWjYICwMAW3FXTbKCWxGW0AHuPtYANtZhksKYXnFE KiFKNzjk8HEAFmKDWkUFz4JgFeQWCbQRMmURymTBFuSJQbRMA0ZSWkRDXbYR5ECgOeAXWaGOW5UHFsOD IbPOEqrl0VRYLwNLAeOjp4MyMbTXWlETMsGBqfRJOq EJE5QIAzOFXjKRLgSL7BNhTqEJWhMKOkTQItEZWqCJTysh1FJHGmHLCoUrEwONCqYTLgEKGhEKnxIIKm ESA3LRN3ZSVjNYBuUO0VLfYeOYHqIIj1UJukBGScFGPwns7PYEUyINUaFITzHRPcCIFrPAXjASgqNVIh GSK6DZm2OEXlITTlAC7VBxFbGEQtAMp0YxCtDLKpMW Alzq4CAJTrIXSyRHu2KBPfUXQrVRHdSTgnQFSgZIOsKDW1NLDsOQIuGU6ICnYdWLKvVUSeKpTgDDAkWH Vths6LEXSlWXIdNLQhDDPfBKHbLNCpCNtxUXQgJXHkWrQwEYHuAAFpIM6NAoHvXRLhUqJ2DzplBUYtWN Igma7XYPSfGVYhDLX5ANNxQGItPCGjXPplDAGgTPW7 EHK3QPQfSYWkCZ7IWtZySPYrYpX5LeDrBNLnACWftm9ZQJMlPLKzGVUaLlFtIQYnJKBlAMmvFSAzFYW1 QiY0NZJsCOTaCM5IHxQfVMCqNdE6YPRjPMRgNVDmdc4EXCTyYFUdWkokFoYfGCTzFYInGScmXAPdSOT3 BFN3LHCsDISlPS5LMbSzSFOhNsxzANWdAVUeCUDlil 1UIBUzEOPeViTkAyFkXBVjLZBhMWgmEWMtQUB7JNcoAVCzVBIdJJ8FKhOtCVFbBuvuSIObYXLwBMUqww 9TKZHaOGGcALW7HTBcIFJjPGTgJTk8xpBllCYdLMc5QO9FW1HdoeWmLeZVUu1Uz638EQYiBYMnNz3KV0 gkBy8bAGEkWFMOGo0DSFf2YzMjDpRiHQA2IJZaRrWx CXD7JSD6M1TyBKF4ZKl3Lrf+BGvdXHBbYPQ0FhZ7NEXcF5A8CqPoEBsrVYWhVeFfBEAxLI8cRHOSQe8+ KYhcrQQrfHigBOVFPcU1OQV5ALfnONITJz5C ID Date Data Source [id number] 12/31/2019 03:09:23 PM EDT [facility] Name Value Range Interpretation Code Description Data Milena rce(s) Supporting Document(s) H&P [facility] NGLJYb4rGoWWWkAk00/HPPrxJUMij8FhHNecTWg6WQxnIDMrL5VfNQK3xL9dIVS5IHnTRbFtKuTyZME3 lbm [file] U+QS7hDHs+Lv7Je7OqjhE6orFcTSwbQDe6LZ2IVOLEM0SGUi== ID Date Data Source [id number] 12/31/2019 01:10:00 PM EDT [facility] Name Value Range Interpretation Code Description Data Milena rce(s) Supporting Document(s) WBC 5.19 x1000/ul 4.80-10.00 Normal (applies to non-numeric re sults) [facility] RBC 4.66 x1Mil/ul 4.70-6.10 Below low normal [facility] Hemoglobin 13.6 g/dl 14.0-18.[address] [facility] Hematocrit 41.3 % 42.0-52.[address] [facility] MCV 88.6 fL 80.0-94.0 Normal (applies to non-numeric resul ts) [facility] MCH 29.2 pg 27.0-31.0 Normal (applies to non-numeric resul ts) [facility] MCHC 32.9 g/dl 32.2-37.0 Normal (applies to non-numeric resul ts) [facility] RDW 13.1 % 11.5-14.5 Normal (applies to non-numeric resul ts) [facility] Platelet Count 309 x1000/ul 130-400 Normal (applies to non-numeric results) [facility] MPV 9.8 fL 9.4-12.4 Normal (applies to non-numeric resul ts) [facility] Neutrophils 63.0 % 40.0-74.0 Normal (applies to non-numeric resu lts) [facility] Lymphocytes 22.9 % 19.0-48.0 Normal (applies to non-numeric resu lts) [facility] Monocytes 9.8 % 3.4-9.[address] [facility] Eosinophils 3.5 % 0.0-7.0 Normal (applies to non-numeric resu lts) [facility] Basophils 0.6 % 0.0-2.0 Normal (applies to non-numeric resul ts) [facility] Immature Granulocytes 0.2 % 0.0-0.5 Normal (applies to non-nu meric results) [facility] Nucleated RBCs 0.00 % 0.00-0.20 Normal (applies to non-numeric r esults) [facility] Abs. Neutrophils 3.27 x1000/ul 1.92-8.31 Normal (applies to non-numeric results) [facility] Abs. Lymphocyte 1.19 x1000/ul 1.20-3.70 Below low normal [facility] Abs. Monocytes 0.51 x1000/ul 0.14-0.97 Normal (applies to non-nu meric results) [facility] Abs. Eosinophils 0.18 x1000/ul 0.00-0.76 Normal (applie s to non-numeric results) [facility] Abs. Basophils 0.03 x1000/ul 0.00-0.22 Normal (applies to non-n umeric results) [facility] Abs. Immature Gran. 0.01 x1000/ul 0.00-0.02 Normal (appl ies to non-numeric results) [facility] Abs. Nucleated RBCs 0.00 x1000/ul 0.00-0.02 Normal (appl ies to non-numeric results) [facility] The above 24 analytes were performed by [facility] [id number] [place] [id number][facility] [address] ID Date Data Source [id number] 12/31/2019 12:00:49 PM EDT [facility] Name Value Range Interpretation Code Description Data Milena rce(s) Supporting Document(s) Progress Notes [facility] QGOQWv2jHmQYHlDj17/BBLxuOJZju0DoZGmqXOh3IInuTCWpN1GpQKS4jP4sUUQ9BHxZGeIcIlPzCNM3 lbm [file] 4wHPVEPw5+XOemoDJwcYvrFMUQOdEqPFK1SEomHEYLZf5I ID Date Data Source [id number] 12/31/2019 09:10:02 AM EDT [facility] Name Value Range Interpretation Code Description Data Milena rce(s) Supporting Document(s) Consults [facility] NHMCZf8gVwZLHiGw40/TMDgnMSNsx0OgOEjoLAo4QXotIABwQ2JmESU2bW9lIUO8OQgGOgFzLsItCVY0 lbm [file] 5Ke7ZavkH7pbGmMVwjCYU7Yc3LMALCS0LYKc== ID Date Data Source [id number] 12/31/2019 08:47:41 AM EDT [facility] Patient: RIVERA LEONE : 1970 [facility] 3+ VIEWS LEFT Provider: LAURIE TYLERINICAL HISTORY: Pain edema, erythema, posterior right [...] rce(s) Supporting Document(s) ID Date Data Source [id number] 12/31/2019 05:06:00 AM EDT [facility] Name Value Range Interpretation Code Description Data Milena rce(s) Supporting Document(s) Nursing Note [facility] HVKMKu2sEzOYBuNc70/MVIrfIFSaw5VvYTjmTOu9FIgmXMMlH6KuBHO8rR0mEWH6LNvKTxAhLyZvLIR8 lbm OeNrkCXxGuGKKkCxwQQjPrTRseJwbgyUPbEK7JxVW9LKIkN18iTZJwAYGnA3RgQVj4PE9+BRqwTEB6rs QalR5OGGLKNO1Z95PLhb+0/3VCV9A4prIfGHzkSH1YNOVS7hn6MRp9wFKQlIqH/19HRHPZCbohHbICQ1 11Pn+4z343CVV8+gj6yQaolT+zGdEs3TVpBp+CWk2K bRu3VTATRuZvib2G+mh9wa83XWllgC89nWjJWD4TGynlMNRrcCtOhKAvH/fID9D6NiF9PYcBmF/EwKYD tqYQX1voHg3bTO0YMyCNu5CmGC2ZVaShc8sTCxpzxNATxnYbyEtn4CpQRoIhc7V58aEIwWWN6KwdQgSD gvuBCMnDCsZup43zhRwkEMRjMbm5KbF79sRs9bklhU F7kLQbwEOf7NV7LKKOteWXmciAOGsrxMwiBvVxS+hLtGx18PC8/avgSYPCqvsoNGJH+cwe4AT+LMTD5G 5P1JFCCJswkUXu+DuhGT2cfVOBF5grnrKtYHmHIDBSDvsof/vQEWgeDY+1ieMHi4cChdac4BzVPgiX3u u3ZJcsJzgZ822eQ1MPIYTyoIMxzkYt6A0gYT1e8J85 2+FCLAGwfZ0zMQv/sdF4Ue68gwRs/cABYY9PMqJu+fM7Ld2onFAJXtVS9PEhtDuI1YUurD3iEuqW7TlI VmZsbdx7mB+tkcE8gje0VxU+R6LQHHQ5iZ3t/A/eoVaZ3Sbm8odynd87/99TEDdqIaTnOLsDcgcnLFLB iKtft6YfAMmW3FAhPkcoLKXh5iTTAuAf4KPMTmGwIR 2L07aeYXghByTtruV8avAk8NiKTmVTIy/5/HkHCgBpx4MuBfQOSutllvQoK8sI2WEM221EuuTp4k6YDM udbqfWjd766e9wb2DEBh/dC5TZs4NPuy8GQq2Rq2BdJh56LSApoyENRuMDGF86fk3V6KBgSCqrYEzwKm Keaton/bZdfYKbkiFcScIyukLzAQ8NkOudw4nmKmWNYzE [file] MDQxMSAwMDAwMCBuDQowMDAwMDIwNDgyIDAwMDAwIG 8OQpJrEDHdJtE2EkioQNWkDPOrdn4GcPIfuFgasx2YCPoJBk9NtMwfZSX4BHxhJs1vyBTiCMXbVSTEOo 4LvnAnMIHiBVIZORevFVHoBRNdAJQ5UQfuXOIzKElvSIXlIOX4BuLsSHn8YsE3XOUgZrB4R4YvBTAlBU C6ZJZjExL4PUH8SnrgBrD4MpfhLAQ4XqX+IF0gDQ o+Xl9Ps9ZriwQ0guVkSOlwYXh7Fq8LXDBWV4ADMp== ID Date Data Source [id number] 12/30/2019 11:19:14 PM EDT [facility] Name Value Range Interpretation Code Description Data Milena rce(s) Supporting Document(s) Nursing Note [facility] IINRId9cUsVXWwMm12/YSGykENGzo6JeVLlyOLh6EGprJOWwQ8ZfLEV8vR6yYRA6NZbJRiFvWeZeWDK9 lbm [file] XfJEMwFZCeGEI7JVZ+CQ8uBTi+Vt8Lj9GvxlO7fsMqVWaqXnYaFl0ZDWNVC1EAWs== ID Date Data Source [id number] 12/30/2019 10:54:18 PM EDT [facility] Name Value Range Interpretation Code Description Data Milena rce(s) Supporting Document(s) Nursing Note [facility] LHHCSc3mXuGRDmOo20/HNMsgZGIku2IcYSriOBj2ALquTZNyB7GsFBY9hN3yOFL3OQtVIrDlHhLqXSS0 lbm [file] DA SILVA/7NLFe81Kn5iWc3fZyCM2vOSnbE84sQ+8t1LzBkX8BuZJgw/AM7P9rI2tNRW2FAJuhzRikdnC0pm+M t6TPU469s7PFrVXa9ap2SDwTMg/Fk+vSonY8dlH9IB07ZMKPQTeziR/BvLlzZs+aOWN6+bTzCidNLJgw EzVpSBbasqIA8T+vb5/eZ/OK7BfpeZs5xhgqJqyuaG rSIdA+3h8r9wXdyP4pvCRb57f1s1lHT8O5HnRJ6PGvj2usqkIWBNwAU+aByDlU0LTDfMWr1L3sXYJRZC BxyI+n2FD2Dr9vkzU/iMQKdmyUeIGtW3aECYW0W7lnj70+Pilar/4Fz9kK3bWp4dyEarkzONM/tWvBuv0z [file] KY4HWZJND1QOJe== ID Date Data Source [id number] 12/30/2019 10:41:17 PM EDT [facility] Name Value Range Interpretation Code Description Data Milena rce(s) Supporting Document(s) Care Plan [facility] VHDJPn8cSsWRSjYe84/IILwxQNSqh1LlJNfjFJz5KSyrPZCzC0MaZAQ1jI6fPAU1JGfXQoYkZcLyKDW9 lbm [file] osXVM3Tg0AJYWSO0EBMo== ID Date Data Source [id number] 12/30/2019 09:48:40 PM EDT [facility] Name Value Range Interpretation Code Description Data Milena rce(s) Supporting Document(s) ED Provider Notes [facility] REWFWo0hZxOAIhFk57/VTBxaMEUlm8UmLHbfWWq8JBwbNNVwJ3CqTQX6iA3oOYT2VJrIDfZyQxFwMMN3 lbm [file] wERaWd5FLhS9MIDQAmUzED5YIAa= ID Date Data Source [id number] 12/30/2019 09:04:53 PM EDT [facility] Name Value Range Interpretation Code Description Data Milena rce(s) Supporting Document(s) ED Triage Notes [facility] VZYVOd0xMbUWLqUs92/LUUbhGUMgu0YmLRgdFMc6ZWtgVCBiV8GhMHR8yM8gYSV9GRzPOfZjBwFcWIH2 lbm [file] RjFoWWqfHDY8YyCfSC8iYIECJe4+GStxnBQopRjsNGNBJma5SsIWUoYqIM1NRHw= ID Date Data Source [id number] 11/19/2019 07:09:00 PM EDT [facility] Name Value Range Interpretation Code Description Data Milena rce(s) Supporting Document(s) Troponin I 0.000-0.056 Normal (applies to non-numeric resu lts) [facility] ID Date Data Source [id number] 11/19/2019 07:09:00 PM EDT [facility] Name Value Range Interpretation Code Description Data Milena rce(s) Supporting Document(s) Sodium 138 mmol/L 136-145 Normal (applies to non-numeric resul ts) [facility] Potassium 3.5-5.1 Normal (applies to non-numeric resul ts) [facility] Chloride 99 mmol/L 98-107 Normal (applies to non-numeric resul ts) [facility] Carbon Dioxide CO2 21-32 Normal (applies to non-numer ic results) [facility] Anion Gap 5.0-16.0 Normal (applies to non-numeric resul ts) [facility] BUN 11 mg/dL 7-18 Normal (applies to non-numeric results) [facility] Creatinine,Serum 0.8-1.5 Normal (applies to non-numeric results) [facility] GFR >60 Normal (applies to non-numeric results) [facility] Glucose Level 95 mg/dL 60-99 Normal (applies to non-numeric re sults) [facility] Reference range is only applicable when patient is fasting Note the following drug interference: Sulfasalazine Sulfapyridine Can see falsely depressed Can see falsely elevated result with up to 17% results with up to 11% decrease in measurement increase in measurement Recommend patients be collected for this test prior to administration of either drug. Calcium 8.5-10.1 Normal (applies to non-numeric resul ts) [facility] ID Date Data Source [id number] 11/21/2019 12:14:00 PM EDT [facility] Imaging Services Department Imaging Report [address] [place], [place] [address] %(RAD)RES..mtdd.print.filter("line") Name: RIVERA LEONE : 1970 Age/Sex: 49M Ordering Provider: Remy Humphrey MD Med Rec #: [id number] Reg Status: ADM IN Room #: 129-1 Date of Service: 11/19/19 Report Number: [id number] cc:Remy Humphrey MD; PCP None Send Report To: [id number] XRP/XR Chest 2 View [Pa & Lat] [...] Date/Time: 11/21/19 1045 Transcribed Date/Time: 11/21/19 1214 Director Of Pulmonary Unit: ULISSES Name Value Range Interpretation Code Description Data Milena rce(s) Supporting Document(s) ID Date Data Source [id number] 11/19/2019 07:09:00 AM EDT [facility] Name Value Range Interpretation Code Description Data Milena rce(s) Supporting Document(s) White Blood Count 3.5-10.5 Normal (applies to non-numeri c results) [facility] Red Blood Count 4.30-5.70 Normal (applies to non-numeric results) [facility] Hemoglobin 13.5-17.5 Below low normal [facility] Hematocrit 38.8-50.0 Below low normal [facility] Mean Corpuscular Volume 81.2-95.1 Normal (applies to non- numeric results) [facility] Mean Corpuscular Hgb 25.6-32.2 Normal (applies to non-num giles results) [facility] Mean Corpuscular Hgb Conc 32.0-36.0 Normal (applies to no n-numeric results) [facility] Red Cell Distribution Width 11.8-15.6 Normal (appli es to non-numeric results) [facility] Platelet Count 385 x10 3/uL 150-450 Normal (applies to non-numeric results) [facility] Mean Platelet Volume 9.4-12.4 Normal (applies to non-num giles results) [facility] Neutrophils% (Auto) 31.0-71.0 Normal (applies to non-nume courtney results) [facility] Lymphocytes% (Auto) 20.0-55.0 Below low normal [facility] Monocytes% (Auto) 4.0-12.0 Normal (applies to non-numeri c results) [facility] Eosinophils% (Auto) 1.0-8.0 Normal (applies to non-nume courtney results) [facility] Basophils% (Auto) 0.0-2.0 Normal (applies to non-numeri c results) [facility] Immature Granulocytes% (Auto) 0.0-2.0 Normal (crescencio lies to non-numeric results) [facility] Neutrophils# (Auto) 1.50-6.20 Normal (applies to non-nume courtney results) [facility] Lymphocytes# (Auto) 1.20-4.00 Normal (applies to non-nume courtney results) [facility] Monocytes# (Auto) 0.00-0.90 Normal (applies to non-numeri c results) [facility] Eosinophils# (Auto) 0.00-0.50 Normal (applies to non-nume courtney results) [facility] Basophils# (Auto) 0.00-0.20 Normal (applies to non-numeri c results) [facility] Immature Granulocytes# (Auto) 0.00-7.00 No rmal (applies to non-numeric results) [facility] ID Date Data Source [id number] 11/20/2019 07:32:00 PM EDT [facility] Name Value Range Interpretation Code Description Data Milena rce(s) Supporting Document(s) HIV Screen result Nonreactive Normal (applies to non-numer ic results) [facility] Test Performed By: [facility] [address] [place] [address] Director: Gee Hightower MD ID Date Data Source [id number] 11/20/2019 07:16:00 PM EDT [facility] Name Value Range Interpretation Code Description Data Milena rce(s) Supporting Document(s) HIV 1/2 Ab p24 Ag Screen Nonreactive Normal (applies to non-numeric results) [facility] Test Performed By: [facility] [address] [place] [address] Director: Gee Hightower MD ID Date Data Source [id number] 11/19/2019 07:30:00 AM EDT [facility] Name Value Range Interpretation Code Description Data Milena rce(s) Supporting Document(s) Sodium 140 mmol/L 136-145 Normal (applies to non-numeric resul ts) [facility] Potassium 3.5-5.1 Normal (applies to non-numeric resul ts) [facility] Chloride 101 mmol/L 98-107 Normal (applies to non-numeric resul ts) [facility] Carbon Dioxide CO2 21-32 Above high normal [facility] Anion Gap 5.0-16.0 Normal (applies to non-numeric resul ts) [facility] BUN 12 mg/dL 7-18 Normal (applies to non-numeric results) [facility] Creatinine,Serum 0.8-1.5 Normal (applies to non-numeric results) [facility] GFR >60 Normal (applies to non-numeric results) [facility] Glucose Level 95 mg/dL 60-99 Normal (applies to non-numeric re sults) [facility] Reference range is only applicable when patient is fasting Note the following drug interference: Sulfasalazine Sulfapyridine Can see falsely depressed Can see falsely elevated result with up to 17% results with up to 11% decrease in measurement increase in measurement Recommend patients be collected for this test prior to administration of either drug. Calcium 8.5-10.1 Normal (applies to non-numeric resul ts) [facility] Bilirubin,Total 0.1-1.9 Normal (applies to non-numeric results) [facility] SGOT(AST) 244 U/L 15-37 Above high normal [facility] Note the following drug interference: Sulfasalazine Sulfapyridine Can see falsely depressed Can see falsely elevated result with up to 10% results with up to 10% decrease in measurement increase in measurement Recommend patients be collected for this test prior to administration of either drug. SGPT(ALT) 428 U/L 12-78 Above high normal [facility] Note the following drug interference: Sulfasalazine Sulfapyridine Can see falsely depressed Can see falsely elevated result with up to 29% results with up to 10% decrease in measurement increase in measurement Recommend patients be collected for this test prior to administration of either drug. Alkaline Phosphatase 102 U/L 38-126 Normal (applies to non-num giles results) [facility] can increase Alkaline Phosp le vels up to 2 times the normal adult value. Normal values for children and adolescents are 2 to 3 times the normal adult value. Total Protein 6.0-8.2 Normal (applies to non-numeric re sults) [facility] Albumin Level 3.4-5.0 Below low normal [facility] ID Date Data Source [id number] 11/19/2019 07:30:00 AM EDT [facility] Name Value Range Interpretation Code Description Data Milena rce(s) Supporting Document(s) Magnesium 1.8-2.4 Normal (applies to non-numeric resul ts) [facility] ID Date Data Source [id number] 11/19/2019 07:30:00 AM EDT [facility] Name Value Range Interpretation Code Description Data Milena rce(s) Supporting Document(s) Phosphorus 2.5-4.9 Normal (applies to non-numeric resul ts) [facility] ID Date Data Source [id number] 11/16/2019 03:02:00 PM EDT [facility] Name Value Range Interpretation Code Description Data Milena rce(s) Supporting Document(s) Bilirubin,Direct 0.05-0.20 Normal (applies to non-numeric results) [facility] ID Date Data Source [id number] 11/16/2019 03:02:00 PM [facility] Name Value Range Interpretation Code Description Data Milena rce(s) Supporting Document(s) Phosphorus 2.5-4.9 Normal (applies to non-numeric resul ts) [facility] ID Date Data Source [id number] 11/16/2019 03:02:00 PM EDT [facility] Name Value Range Interpretation Code Description Data Milena rce(s) Supporting Document(s) Sodium 137 mmol/L 136-145 Normal (applies to non-numeric resul ts) [facility] Potassium 3.5-5.1 Normal (applies to non-numeric resul ts) [facility] [facility] Chloride 99 mmol/L 98-107 Normal (applies to non-numeric resul ts) [facility] Carbon Dioxide CO2 21-32 Normal (applies to non-numer ic results) [facility] Anion Gap 5.0-16.0 Normal (applies to non-numeric resul ts) [facility] BUN 17 mg/dL 7-18 Normal (applies to non-numeric results) [facility] Creatinine,Serum 0.8-1.5 Normal (applies to non-numeric results) [facility] GFR >60 Normal (applies to non-numeric results) [facility] Glucose Level 137 mg/dL 60-99 Above high normal [facility] Reference range is only applicable when patient is fasting Note the following drug interference: Sulfasalazine Sulfapyridine Can see falsely depressed Can see falsely elevated result with up to 17% results with up to 11% decrease in measurement increase in measurement Recommend patients be collected for this test prior to administration of either drug. Calcium 8.5-10.1 Below low normal [facility] Bilirubin,Total 0.1-1.9 Normal (applies to non-numeric results) [facility] SGOT(AST) 245 U/L 15-37 Above high normal [facility] Note the following drug interference: Sulfasalazine Sulfapyridine Can see falsely depressed Can see falsely elevated result with up to 10% results with up to 10% decrease in measurement increase in measurement Recommend patients be collected for this test prior to administration of either drug. SGPT(ALT) 366 U/L 12-78 Above high normal [facility] Note the following drug interference: Sulfasalazine Sulfapyridine Can see falsely depressed Can see falsely elevated result with up to 29% results with up to 10% decrease in measurement increase in measurement Recommend patients be collected for this test prior to administration of either drug. Alkaline Phosphatase 91 U/L 38-126 Normal (applies to non-num giles results) [facility] can increase Alkaline Phosp le vels up to 2 times the normal adult value. Normal values for children and adolescents are 2 to 3 times the normal adult value. Total Protein 6.0-8.2 Normal (applies to non-numeric re sults) [facility] Albumin Level 3.4-5.0 Normal (applies to non-numeric re sults) [facility] ID Date Data Source [id number] 11/16/2019 03:02:00 PM EDT [facility] Name Value Range Interpretation Code Description Data Milena rce(s) Supporting Document(s) Magnesium 1.8-2.4 Normal (applies to non-numeric resul ts) [facility] ID Date Data Source [id number] 11/16/2019 03:02:00 PM EDT [facility] Name Value Range Interpretation Code Description Data Milena rce(s) Supporting Document(s) Thyroid Stimulate Hormone TSH 0.358-3.74 No rmal (applies to non-numeric results) [facility] ID Date Data Source [id number] 11/16/2019 05:35:00 PM EDT [facility] Name Value Range Interpretation Code Description Data Milena rce(s) Supporting Document(s) CPK result 63 U/L 39-308 Normal (applies to non-numeric resul ts) [facility] Test Performed By: [facility] [address] [place] [address] Director: Gee Hightower MD ID Date Data Source [id number] 11/16/2019 05:35:00 PM EDT [facility] Name Value Range Interpretation Code Description Data Milena rce(s) Supporting Document(s) Hepatitis C Virus Ab result Nonreactive Very abnormal (applies to non-numeric units [facility] Jewell Aguilar RN read back information 1734 LAB.MCNRO Test Performed By: [facility] [address] [place] [address] Director: Gee Hightower MD Results called 11/16/19 [...] be requested by the physician if necessary. ([facility] MMWR No RR- 3. 2003). ID Date Data Source [id number] 11/16/2019 05:35:00 PM T [facility] Name Value Range Interpretation Code Description Data Milena rce(s) Supporting Document(s) Hep Bs Ag result T-Test Nonreactive Normal (applies to non -numeric results) [facility] Test Performed By: [facility] [address] [place] [address] Director: Gee Hightower MD ID Date Data Source [id number] 11/16/2019 05:35:00 PM EDT [facility] Name Value Range Interpretation Code Description Data Milena rce(s) Supporting Document(s) Syphilis Serology result Nonreactive Normal (applies to non-numeric results) [facility] Test Performed By: [facility] [address] [place] [address] Director: Gee Hightower MD ID Date Data Source [id number] 11/16/2019 05:21:00 PM EDT [facility] Test Performed By: [facility] [address] [place] [address] Director: Gee Hightower MD Test Performed By: [facility] [address] [place] [address] Director: Gee Hightower MD Name Value Range Interpretation Code Description Data Milena rce(s) Supporting Document(s) Hep C Ab-T Test Nonreactive [facility] Test Performed By: [facility] [address] [place] [address] Director: Gee Hightower MD Results called 11/16/19 [...] be requested by the physician if necessary. ([facility] MMWR No RR-3. 2003). ID Date Data Source [id number] 11/16/2019 05:21:00 PM EDT [facility] Test Performed By: [facility] [address] [place] [address] Director: Gee Hightower MD Test Performed By: [place] [address] Director: Gee Hightower MD Name Value Range Interpretation Code Description Data Milena rce(s) Supporting Document(s) ID Date Data Source [id number] 11/16/2019 05:22:00 PM EDT [facility] Test Performed By: [facility] [address] [place] [address] Director: Gee Hightower MD Test Performed By: [facility] [address] [place] [address] Director: Gee Hightower MD Name Value Range Interpretation Code Description Data Milena rce(s) Supporting Document(s) ID Date Data Source [id number] 11/16/2019 04:16:00 PM EDT [facility] Name Value Range Interpretation Code Description Data Milena rce(s) Supporting Document(s) CPK 63 U/L 39-308 Normal (applies to non-numeric resul ts) [facility] Test Performed By: [facility] [address] [place] [address] Director: Gee Hightower MD ID Date Data Source [id number] 11/16/2019 04:09:00 PM EDT [facility] Name Value Range Interpretation Code Description Data Milena rce(s) Supporting Document(s) White Blood Count 3.5-10.5 Normal (applies to non-numeri c results) [facility] Red Blood Count 4.30-5.70 Normal (applies to non-numeric results) [facility] Hemoglobin 13.5-17.5 Below low normal [facility] Hematocrit 38.8-50.0 Normal (applies to non-numeric resul ts) [facility] Mean Corpuscular Volume 81.2-95.1 Normal (applies to non- numeric results) [facility] Mean Corpuscular Hgb 25.6-32.2 Normal (applies to non-num giles results) [facility] Mean Corpuscular Hgb Conc 32.0-36.0 Normal (applies to no n-numeric results) [facility] Red Cell Distribution Width 11.8-15.6 Normal (appli es to non-numeric results) [facility] Platelet Count 369 x10 3/uL 150-450 Normal (applies to non-numeric results) [facility] Mean Platelet Volume 9.4-12.4 Normal (applies to non-num giles results) [facility] Neutrophils% (Auto) 31.0-71.0 Normal (applies to non-nume courtney results) [facility] Lymphocytes% (Auto) 20.0-55.0 Normal (applies to non-nume courtney results) [facility] Monocytes% (Auto) 4.0-12.0 Normal (applies to non-numeri c results) [facility] Eosinophils% (Auto) 1.0-8.0 Normal (applies to non-nume courtney results) [facility] Basophils% (Auto) 0.0-2.0 Normal (applies to non-numeri c results) [facility] Immature Granulocytes% (Auto) 0.0-2.0 Normal (crescencio lies to non-numeric results) [facility] Neutrophils# (Auto) 1.50-6.20 Normal (applies to non-nume courtney results) [facility] Lymphocytes# (Auto) 1.20-4.00 Normal (applies to non-nume courtney results) [facility] Monocytes# (Auto) 0.00-0.90 Normal (applies to non-numeri c results) [facility] Eosinophils# (Auto) 0.00-0.50 Normal (applies to non-nume courtney results) [facility] Basophils# (Auto) 0.00-0.20 Normal (applies to non-numeri c results) [facility] Immature Granulocytes# (Auto) 0.00-7.00 No rmal (applies to non-numeric results) [facility] ID Date Data Source [id number] 11/16/2019 02:45:00 PM EDT [facility] Name Value Range Interpretation Code Description Data Milena rce(s) Supporting Document(s) Ethanol Less than 10.0 Normal (applies to non-numeric r esults) [facility] ID Date Data Source [id number] 11/19/2019 02:46:00 PM EDT [facility] Name Value Range Interpretation Code Description Data Milena rce(s) Supporting Document(s) Chlamydia,Urine Negative Normal (applies to non-numeric results) [facility] Test Performed By: [place] [address] Director: Gee Hightower MD . GC Urine Negative Normal (applies to non-numeric resul ts) [facility] Test Performed By: [place] [address] Director: Gee Hightower MD . Methodology: Second generation nucleic acid amplification. ID Date Data Source [id number] 11/19/2019 01:38:00 PM EDT [facility] Value Range Interpretation Code Description Data Milena rce(s) Supporting Document(s) Hepatitis A Ab,IgG result Normal (applies to no n-numeric results) [facility] Result indicates no past exposure or imm unity to hepatitis A infection. REFERENCE VALUE Unvaccinated: Negative Vaccinated: Positive Test Performed by: [facility] [place] [address] Mechanical Engineering Professor: Joseph Morales M.D. Ph.D.; CLIA# [id number] ID Date Data Source [id number] 11/19/2019 12:40:00 PM EDT [facility] Value Range Interpretation Code Description Data Milena rce(s) Supporting Document(s) Hepatitis A Ab,IgG result Normal (applies to no n-numeric results) [facility] Result indicates no past exposure or imm unity to hepatitis A infection. REFERENCE VALUE Unvaccinated: Negative Vaccinated: Positive Test Performed by: [place] [address] Mechanical Engineering Professor: Joseph Morales M.D. Ph.D.; CLIA# [id number] ID Date Data Source [id number] 11/16/2019 02:42:00 PM EDT [facility] Value Range Interpretation Code Description Data Milena rce(s) Supporting Document(s) UDS Phencyclidine Screen Negative Normal (applies to non -numeric results) [facility] UDS Benzodiazepines Screen Negative Normal (applies to n on-numeric results) [facility] UDS Cocaine Screen Negative Normal (applies to non-numer ic results) [facility] UDS Ampetamine Screen Negative Normal (applies to non-nu meric results) [facility] UDS Cannabinoids Screen Negative Nettles [facility] UDS Opiates Screen Negative Normal (applies to non-numer ic results) [facility] UDS Barbiturates Screen Negative Normal (applies to non- numeric results) [facility] UDS Tricyclic Screen Negative Normal (applies to non-num giles results) [facility] Therapeutic Drug Ranges for Emergency Threshold [...] treatment purposes only. ID Date Data Source [id number] 11/16/2019 02:22:00 PM EDT [facility] Collected By: Patient-Inpatient Initial s: CF Time Collected: 1355 Name Value Range Interpretation Code Description Data Milena rce(s) Supporting Document(s) Color,Urine Colorl-Dk Y Normal (applies to non-numeric res ults) [facility] Clarity,Urine Clear Normal (applies to non-numeric re sults) [facility] Specific [place],Urine 1.005-1.030 Normal (applies to non- numeric results) [facility] pH,Urine 5.0-8.0 Normal (applies to non-numeric resul ts) [facility] Protein,Urine Negative Normal (applies to non-numeric re sults) [facility] Glucose,Urine Negative Normal (applies to non-numeric re sults) [facility] Ketones,Urine Negative Normal (applies to non-numeric re sults) [facility] Blood,Urine Negative Normal (applies to non-numeric resu lts) [facility] Bilirubin,Urine Negative Normal (applies to non-numeric results) [facility] Urobilinogen,Urine 0.2-1.0 Normal (applies to non-numer ic results) [facility] Leukocyte Esterase,Urine Negative Normal (applies to non -numeric results) [facility] Nitrite,Urine Negative Normal (applies to non-numeric re sults) [facility] ID Date Data Source [id number] 11/19/2019 03:26:00 PM EDT [facility] Name Value Range Interpretation Code Description Data Milena rce(s) Supporting Document(s) Chlamydia,Urine result Negative Normal (applies to non-n umeric results) [facility] Test Performed By: [facility] [address] [place] [address] Director: Gee Higthower MD . GC Urine result Negative Normal (applies to non-numeric results) [facility] Test Performed By: [facility] [address] [place] [address] Director: Gee Hightower MD . Methodology: Second generation nucleic acid amplification. ID Date Data Source [id number] 11/15/2019 04:00:00 AM EDT [facility] [place]) Name Value Range Interpretation Code Description Data Milena rce(s) Supporting Document(s) Urea nitrogen [Mass/volume] in Serum or Plasma 17.0 mg/dL [facility] ([employer]) Glucose [Mass/volume] in Serum or Plasma 81.0 mg/dL [facility] ([employer]) Creatinine [Mass/volume] in Serum or Plasma 0.89 mg/dL [facility]ALTH[facility]) Glomerular filtration rate/1.73 sq M.pre dicted [Volume Rate/Area] in Serum, Plasma or Blood by Creatinine-based formula (MDRD) 100.0 mL/min/1.73m2 [facility] ([employer]) Glomerular filtration rate/1.73 sq M pre dicted among blacks [Volume Rate/Area] in Serum or Plasma by Creatinine-based formula (MDRD) 116.0 mL/min/1.73m2 [facility] ([employer]) Urea nitrogen/Creatinine [Mass Ratio] in Serum or [...] mean volume [Entitic volume] in Blood by Catrina 11.2 fL [facility] ([facility]) Band form [...] in Blood by Manual count DNR [facility]SM[facility] ([facility]) Metamyelocytes/100 leukocytes in Blood by Manual count DNR [facility] ([facility]) Lymphocytes/100 leukocytes in Blood by Automated count 26.8 % [facility] ([facility]) Monocytes/100 leukocytes in Blood by Automated count 13.6 % [facility] ([facility]) Variant lymphocytes/100 leukocytes in Blood DNR [facility] ([facility]) Blasts/100 leukocytes in Blood by Manual count DNR [facility] ([facility]) Basophils/100 leukocytes in Blood by Automated count 0.9 % [facility] ([facility]) Eosinophils/100 leukocytes in Blood by Automated count 1.9 % [facility]SM[facility] ([facility]) Nucleated erythrocytes/100 leukocytes [Ratio] in Blood DNR [facility]SM[facility] ([facility]) Hepatitis C virus Ab Signal/Cutoff in Serum or Plasma by Immunoassay 31.4 NETSMART ([facility]) Service comment DNR [facility]SM[facility] ([facility]) Hepatitis C virus Ab [Presence] in Serum or Plasma by Immunoassay R EACTIVE NETSMART ([facility]) QUESTION: NETSMART ([facility]) CONTACT: NETSMART ([facility]) QUESTION/PROBLEM: NETSMART ([facility]) Gamma interferon background [Units/volume] in Blood by Immunoass ay 0.07 IU/mL [facility]SM[facility] ([facility]) Mycobacterium tuberculosis stimulated gamma interferon [Presence] in Blood NEGATIVE [facility]SMART ([facility]) RESOLUTION: NETSMART ([facility]) Reagin Ab [Presence] in Serum by RPR NON-REACTIVE [facility] ([facility]) Mycobacterium tuberculosis stimulated ga mma interferon [Units/volume] corrected for background in Blood 0.01 IU/mL [facility]SMART ([facility]) Mitogen stimulated gamma interferon [Uni ts/volume] corrected for background in Blood >10.00 NETSMART ([facility]) M TB IFN-g CD4+CD8+ bckgrnd cor Bld-aCnc 0.01 IU/mL [facility]SMART ([facility]) Hepatitis C virus RNA [log units/volume] (viral load) in Serum or Plasma by Probe and target amplification method NETSMART ([facility]) Hepatitis C virus RNA [Units/volume] (vi ral load) in Serum or Plasma by Probe and target amplification method NETS MART ([facility]) Hepatitis C virus RNA [log units/volume] (viral load) in Serum or Plasma by Probe and target amplification method [facility] ([facility]) Hepatitis C virus RNA [Units/volume] (vi ral load) in Serum or Plasma by Probe and target amplification method [facility] [employer] ([facility]) Hepatitis C virus RNA [Units/volume] (vi ral load) in Serum or Plasma by Probe and target amplification method 704678.0 IU/mL [facility] ([facility]) Hepatitis C virus RNA [log units/volume] (viral load) in Serum or Plasma by Probe and target amplification method [facility] ([facility]) Hepatitis C virus RNA [Units/volume] (vi ral load) in Serum or Plasma by Probe and target amplification method [facility]) Comment [Interpretation] Left eye Narrative Ophthalmometer [facility] ([facility]) Hepatitis C virus RNA [log units/volume] (viral load) in Serum or Plasma by Probe and target amplification method 5.08 Log IU/mL [facility]ENTERMV[facility]) ID Date Data Source [id number] 11/24/2019 01:38:00 PM EDT [employer] [facility] FASTING:NOFASTING: NOReceived: 0 at 05:47:00 QPT: [facility], [address], [address] [place] [address], [phone] MD Received: 11/17/2019 at 05:47:00 QPT : [facility], [address], [address] [place] [address], [phone] MD Received: 11/17/2019 at 05:47:00 QPT : [facility], [address], [address] [place] [address], [phone] MD Received: 11/17/2019 at 05:47:00 QPT : [facility], [address], [address] [place] [address], [phone] MD Received: 11/17/2019 at 05:47:00 QPT : [facility], [address], [address] [place] [address], [phone] MD Received: 11/17/2019 at 05:47:00 QPT : [facility], [address], [address] [place], [address], Taye Rodríguez MD Received: 11/17/2019 at 05:47:00 QPT : [facility], [address], [address] [place], [address], Taye Rodríguez MD Received: 11/17/2019 at 05:47:00 QPT : [facility], [address], [address] [place], [address], Taye Rodríguez MD Name Value Range Interpretation [...] normal [facility] ID Date Data Source [id number] 11/24/2019 01:38:00 PM EDT [facility] FASTING:NOFASTING: NOReceived: 0 at 05:47:00 QPT: [facility] [address], [address] [place] [address], [phone] MD Received: 11/17/2019 at 05:47:00 QPT : [facility] [address], [address] [place] [address], [phone] MD Received: 11/17/2019 at 05:47:00 QPT : [facility] [address], [address] [place] [address], [phone] MD Received: 11/17/2019 at 05:47:00 QPT : [facility], [address], [address] [place], [phone], Taye Rodríguez MD Received: 11/17/2019 at 05:47:00 QPT : [facility], [address], [address] [place], [address], Taye Rodríguez MD Received: 11/17/2019 at 05:47:00 QPT : [facility], [address], [address] [place], [address], Taye Rodríguez MD Received: 11/17/2019 at 05:47:00 QPT : [facility], [address], [address] [place], [address], Taye Rodríguez MD Received: 11/17/2019 at 05:47:00 QPT : [facility], [address], [address] [place], [address], Taye Rodríguez MD Name Value Range Interpretation [...] [facility] ID Date Data Source [id number] 11/24/2019 01:38:00 PM EDT [facility] FASTING:NOFASTING: NOReceived: 0 at 05:47:00 QPT: [facility], [address] [place] [address], [phone] MD Received: 11/17/2019 at 05:47:00 QPT : [facility], [address] [place] [address], [phone] MD Received: 11/17/2019 at 05:47:00 QPT : [facility], [address] [place] [address], [phone] MD Received: 11/17/2019 at 05:47:00 QPT : [facility], [address] [place] [address], [phone] MD Received: 11/17/2019 at 05:47:00 QPT : [facility], [address], [address] [place], [address], Taye Rodríguez MD Received: 11/17/2019 at 05:47:00 QPT : [facility], [address], [address] [place], [address], Taye Rodríguez MD Received: 11/17/2019 at 05:47:00 QPT : [facility], [address], [address] [place], [address], Taye Rodríguez MD Received: 11/17/2019 at 05:47:00 QPT : [facility], [address], [address] [place], [address], Taye Rodríguez MD Name Value Range Interpretation [...] mean volume [Entitic volume] in Blood by Humberto-Winston 11. 2 fL 7.5-12.5 Normal (applies to non-numeric results) [facility] Neutrophils [#/volume] in Blood by Automated count 3067 cells/uL 5265-4331 Normal (applies to non-numeric results) [facility] [...] results) [facility] ID Date Data Source [id number] 11/24/2019 01:38:00 PM EDT [facility] FASTING:NOFASTING: NOReceived: 0 at 05:47:00 [facility]PT[facility] [address] [place] [address], [phone], Taye Rodríguez MD Received: 11/17/2019 at 05:47:00 QPT : [facility], [address] [place] [address], [phone], Taye Rodríguez MD Received: 11/17/2019 at 05:47:00 QPT : [facility] [place], [address]Taye MD Received: 11/17/2019 at 05:47:00 QPT : [facility], [address], [address] [place], [address], Taye Rodríguez MD Received: 11/17/2019 at 05:47:00 QPT : [facility], [address], [address] [place], [address]Taye MD Received: 11/17/2019 at 05:47:00 QPT : [facility], [address], [address] [place] [address], [address], Taye Rodríguez MD Received: 11/17/2019 at 05:47:00 QPT : [facility], [address], [address] [place], [address], Taye Rodríguez MD Received: 11/17/2019 at 05:47:00 QPT : [facility], [address], [address] [place], [address], Taye Rodríguez MD Name Value Range Interpretation Code Description Data Milena rce(s) Supporting Document(s) Hepatitis C virus Ab [Presence] in Serum or Plasma by Immuno assay REACTIVE NON-REACTIVE Abnormal (applies to non-numeric results) [facility] Hepatitis C virus Ab Signal/Cutoff in Serum or Plasma by Imm unoassay 31.40 <1.00 Above high normal [facility] HCV antibody was reactive. The sample wi ll be testedfor HCV RNA by a Nucleic Acid Amplification Test (NAAT)to determine if the patient has a current activeinfection. ID Date Data Source [id number] 11/24/2019 01:38:00 PM EDT [facility] FASTING:NOFASTING: NOReceived: 0 at 05:47:00 QPT: [facility], [address], [address] [place], [address]Taye MD Received: 11/17/2019 at 05:47:00 QPT : [facility], [address], [address] [place], [address]Taye MD Received: 11/17/2019 at 05:47:00 QPT : [facility], [address], [address] [place], [address], Taye Rodríguez MD Received: 11/17/2019 at 05:47:00 QPT : [facility], [address], [address] [place], [address]Taye MD Received: 11/17/2019 at 05:47:00 QPT : [facility], [address], [address] [place], [address], Taye Rodríguez MD Received: 11/17/2019 at 05:47:00 QPT : [facility], [address], [address] [place], [address]Taye MD Received: 11/17/2019 at 05:47:00 QPT : [facility], [address], [address] [place], [address]Taye MD Received: 11/17/2019 at 05:47:00 QPT : [facility], [address], [address] [place], [address], Taye Rodríguez MD Name Value Range Interpretation Code Description Data Milena rce(s) Supporting Document(s) Hepatitis C virus RNA [Units/volume] (vi ral load) in Serum or Plasma by Probe and target amplification method [id number] IU/mL NOT DETECTED Above high normal [facility] Hepatitis C virus RNA [log units/volume] (viral load) in Serum or Plasma by Probe and target amplification method 5.08 Log IU/mL NOT DETECTED Ab ove high normal [facility] HCV RNA was detected. This result provid es laboratoryevidence of a current active HCV infection. COMMENT [facility] This test was performed using Real-Time Polymerase ChainReaction.Reportable Range: 15 IU/mL to 100,000,000 IU/mL(1.18 Log IU/mL to 8.00 Log IU/mL).The analytical performance characteristics of thisassay have been determined by [employer].The modifications have not been cleared or approved bythe FDA. This assay has been validated pursuant to theCLIA regulations and is used for clinical purposes.For more information on this test, go to:http://education.Roamzs.Marvin/faq/IGW92j2(This link is being provided for informational/educational purposes only.)This assay is intended for use as an aid in thediagnosis of HCV infection and the management ofHCV infected patients undergoing anti-viral therapy. ID Date Data Source [id number] 11/17/2019 06:15:00 PM EDT [facility] FASTING:NOFASTING: NOReceived: 0 at 05:47:00 QPT: [facility], [address], [address] [place] [address], [phone] MD Received: 11/17/2019 at 05:47:00 QPT : [facility], [address], [address] [place] [address], [phone] MD Received: 11/17/2019 at 05:47:00 QPT : [facility], [address], [address] [place] [address], [address], Taye Rodríguez MD Received: 11/17/2019 at 05:47:00 QPT : [facility], [address], [address] [place] [address], [phone], Taye Rodríguez MD Received: 11/17/2019 at 05:47:00 QPT : [facility], [address], [address] [place] [address], [address]Taye MD Received: 11/17/2019 at 05:47:00 QPT : [facility], [address], [address] [place] [address], [phone] MD Received: 11/17/2019 at 05:47:00 QPT : [facility], [address], [address] [place], [address]Taye MD Received: 11/17/2019 at 05:47:00 QPT : [facility], [address], [address] [place] [address], [phone] MD Name Value Range Interpretation Code Description Data Milena rce(s) Supporting Document(s) QUESTION/PROBLEM: [facility] QUESTION: [facility] CONTACT: [facility] RESOLUTION: [facility] ID Date Data Source [id number] 11/24/2019 01:38:00 PM EDT [facility] FASTING:NOFASTING: NOReceived: 0 at 05:47:00 QPT: [facility], [address], [address] [place] [address], [phone], Taye Rodríguez MD Received: 11/17/2019 at 05:47:00 QPT : [facility], [address], [address] [place] [address], [address], Taye Rodríguez MD Received: 11/17/2019 at 05:47:00 QPT : [facility], [address], [address] [place] [address], [address], Taye Rodríguez MD Received: 11/17/2019 at 05:47:00 QPT : [facility], [address], [address] [place] [address], [phone], Taye Rodríguez MD Received: 11/17/2019 at 05:47:00 QPT : [facility], [address], [address] [place] [address], [phone], Taye Rodríguez MD Received: 11/17/2019 at 05:47:00 QPT : [facility], [address], [address] [place] [address], [phone] MD Received: 11/17/2019 at 05:47:00 QPT : [facility], [address], [address] [place] [address], [phone] MD Received: 11/17/2019 at 05:47:00 QPT : [facility], [address], [address] [place] [address], [address], Taye Rodríguez MD Name Value Range Interpretation Code Description Data Milena rce(s) Supporting Document(s) Reagin Ab [Presence] in Serum by RPR NON-REACTIVE NON-REACTIV E Normal (applies to non-numeric results) [facility] ID Date Data Source [id number] 11/24/2019 01:38:00 PM EDT [facility] FASTING:NOFASTING: NOReceived: 0 at 05:47:00 QPT: [facility], [address], [address] [place] [address], [address], Taye Rodríguez MD Received: 11/17/2019 at 05:47:00 QPT : [facility], [address], [address] [place] [address], [address], Taye Rodríguez MD Received: 11/17/2019 at 05:47:00 QPT : [facility], [address], [address] [place] [address], [address], Taye Rodríguez MD Received: 11/17/2019 at 05:47:00 QPT : [facility], [address], [address] [place] [address], [phone], Taye Rodríguez MD Received: 11/17/2019 at 05:47:00 QPT : [facility], [address], [address] [place] [address], [phone], Taye Rodríguez MD Received: 11/17/2019 at 05:47:00 QPT : [facility], [address], [address] [place] [address], [phone], Taye Rodríguez MD Received: 11/17/2019 at 05:47:00 QPT : [facility], [address], [address] [place] [address], [phone], Taye Rodríguez MD Received: 11/17/2019 at 05:47:00 QPT : [facility], [address], [address] [place] [address], [phone], Taye Rodríguez MD Name Value Range Interpretation [...] and CD8+cytotoxic T-lymphocytes.For additional information, please refer totps://education.adQuota/faq/BGQ141(This link is being provided for informational/educational purposes only.) ID Date Data Source [id number] 11/12/2019 02:37:12 AM EDT [facility] Name Value Range Interpretation Code Description Data [facility] Supporting Document(s) Progress Note [facility] [id number] [facility] [file] [id number]= ID Date Data Source [id number] 09/25/2019 10:07:00 AM EDT [facility] Name: CARLYRIVERA Med Rec #: [id number] [birth year] : 1970 Age/Sex: 49M Date of Service: 09/25/19 DISPOSITION SUMMARY Discharge Summary [facility] Name:Rivera Leone Emergency Department Age:49 yrs [...] rce(s) Supporting Document(s) ID Date Data Source [id number] 09/25/2019 10:07:00 AM EDT [facility] Name: RIVERA LEONE [facility] Rec #: [id number] 62 : 1970 Age/Sex: 49M Date of Service: 09/25/19 PHYSICIAN CHART Physician Documentation [facility] Name: Rivera Leone Age: 49 yrs Sex: Male : 1970 Arrival Date: 09/25/2019 Time: 10:07 Bed 6 Private MD: Out of town, Provider ED Physician Sheree Diamond HPI: 09/24 12:05 This 49 yrs old Male presents to ER via Walk-In located within [facility] with complaints of Suicidal Ideation. 12:05 pmh HEROIN AND MDMA ADDICTION, SMOKER, PAST HX bj OVERDOSE/SUICIDE ATTEMPTS HOSPITALIZED AT [facility] AND [facility]. Rivera was admitted to our rehab [...] to communication noted, The patient speaks fluent Grenadian. ROS: 12:13 Constitutional: Negative for fever, chills. [...] I and II, negative and aVF. Normal MD 133 ms, normal QRS 86 ms, norm [...] He was evaluated in the ER by Mini Amor, the health counselor, who recommends admission [...] Order name: Acetaminophen Level; Complete Time: 11:49 located within [facility] 09/24 11:49 Interpretation: Within normal limits: Aceta < 2.0. located within [facility] 09/24 10:39 Order name: Cbc With Auto Differential; Complete Time: 11:49b 09/24 11:49 Interpretation: Within normal limits: WBC 6.8; HGB 13.6; located within [facility] HCT 38.9; PLT 323. 09/24 10:39 Order name: Comprehensive Metabolic Prof.; Complete Time: located within [facility] 11:49 09/24 11:50 Interpretation: Abnormal: CO2 34.0; GAP < 3.0; BUN 21; GLU located within [facility] 69; ALB 3.3. 09/24 10:39 Order name: Drugs Of Abuse Screen; Complete Time: 11:49 located within [facility] 09/24 11:50 Interpretation: Within normal limits: all neg. located within [facility] 09/24 10:39 Order name: ETOH; Complete Time: 11:49 located within [facility] 09/24 11:50 Interpretation: Within normal limits: ETOH < 10.0. located within [facility] 09/24 10:39 Order name: Salicylate; Complete Time: 11:49 located within [facility] 09/24 11:50 Interpretation: Within normal limits: BARRIE < 1.7. located within [facility] 09/24 10:39 Order name: UA.; Complete Time: 11:49 located within [facility] 09/24 11:50 Interpretation: Within normal limits. located within [facility] 09/24 10:39 Order name: Emergency Room EKG Order - Use EKG Work-Up located within [facility] /Quick Select; Complete Time: 10:42 09/24 10:39 Order name: Cardiology EKG Interpretation - Choose Reason located within [facility] for Test; Complete Time: 11:49 09/24 10:39 Order name: 1:1 Supervision; Complete Time: 10:41 located within [facility] 09/24 10:39 Order name: Collect Urine - Clean Catch; Complete Time: located within [facility] 10:58 09/24 12:13 Order name: Assign to Observation [facility] 09/24 12:20 Order name: Nursing Order: Cancel one-to-one sitter. located within [facility] Initiate every 15 minute observation; Complete Time: 12:21 Dispensed Medications: 12:17 Drug: hydrOXYzine 25 mg [hydroxyzine HCl 25 mg tablet (1 dk2 tabs)] Route: PO; 12:29 Drug: Abilify 5 mg Route: PO; dk2 Disposition Summary: 09/25/19 12:11 Hospitalization Ordered Hospitalization Status: Observation located within [facility] Provider: Mini Philippe located within [facility] Location: Observation located within [facility] Room Assignment: [id number](09/25/19 12:14) [facility] Diagnosis - Opioid de pendence with withdrawal located within [facility] - Other stimulant dependence with withdrawal located within [facility] Additional Information - Patient Status Observation. located within [facility] Forms: - Medication Reconciliation located within [facility] - SBAR located within [facility] Signatures: Dispatcher [employer] EDMS Ev Sharma, Elvin Reg [facility] Sathish Knapp RN RN tp1 Sheree Diamond MD MD located within [facility] Pastora Rogers RN RN dk2 Reno Mtz RN RN awr [place] dmd Corrections: (The following items were deleted from the chart) 10:22 10:20 PMHx: Opiat addiction; tp1 tp1 12:13 12:05 pmh HEROIN AND MDMA ADDICTION, SMOKER, PAST HX located within [facility] OVERDOSE/SUICIDE ATTEMPTS HOSPITALIZED AT [facility] OR [facility]. . located within [facility] 12:14 12:11 [facility] 14:44 10:20 Home Meds: Abilify 5 mg oral tab 1 tab once daily; tp1dmd 14:44 10:20 Home Meds: Seroquel 300 mg Oral tab 1 tab once daily; dmd tp1 Name Value Range Interpretation Code Description Data Milena rce(s) Supporting Document(s) ID Date Data Source [id number] 09/25/2019 10:07:00 AM EDT [facility] Hospital Name: RIVERA LEONE [facility] Rec #: [id number] [birth year] : 1970 Age/Sex: 49M Date of Service: 09/25/19 NURSE CHART Nurse's Notes [facility] Name: Rivera Leone Age: 49 yrs [...] 30 days? Yes, Where have you travelled? [place], [place]. Have you had contact with an individual with a confirmed diagnosis of Ebola or COVID-19? No. 10:14 Method Of Arrival: Walk-In 1 10:14 Acuity: Emergent - 2 tp1 Triage [...] to communication noted, The patient speaks fluent Grenadian. Screenin:22 AUDIT 1. How often do you [...] Belonging list filled out. 10:39 Consultation: Psych launderer hand notified of patients arrival. awr Vital Signs: [...] arrived in ED. smc1 10:13 Out of [facility], Provider is Private Physician. tp1 10:17 Triage completed. tp1 10:17 Arm band placed on right wrist. Patient has correct armband tp1 on for positive identification. 10:18 sitter is at the bedside. awr 10:23 Reno Mtz, RN is Primary Nurse. tp1 10:23 Sheree Diamond MD is Attending Physician. located within [facility] 10:29 An EKG was obtained and reviewed by Sheree Diamond MD. awr 10:42 Cardiology EKG Interpretation - Choose Reason for Test Sent.awr 10:45 Labs drawn by lab staff. awr 10:58 Urine collected. Clean catch specimen. awr 11:18 Behavioral Health in to speak with patient at this time. awr 1:[address]. 12:08 Mini Philippe RNP is Hospitalizing Provider. located within [facility] 12:22 1:1 observation lifted at this time, [...] Outcome: 12:11 Decision to Hospitalize by Provider. located within [facility] 12:21 A copy of the SBAR document [...] Casanova awr 13:04 Patient left the ED. [facility] Signatures: Sathish Knapp RN RN tp1 Molly Hightower NA NA [facility] Sheree Diamond MD MD Pastora Rordiguez RN RN dk2 Reno Mtz RN RN awr Naina Samuel [facility] Corrections: (The follow ing items were deleted [...] rce(s) Supporting Document(s) ID Date Data Source [id number] 09/26/2019 08:36:00 AM EDT [facility] Name Value Range Interpretation Code Description Data [facility] rce(s) Supporting Document(s) Sodium 141 mmol/L 137-145 Normal (applies to non-numeric resul ts) [facility] Potassium 3.5-5.1 Normal (applies to non-numeric resul ts) [facility] Chloride 107 mmol/L 98-112 Normal (applies to non-numeric resul ts) [facility] Carbon Dioxide CO2 22.0-33.0 Normal (applies to non-numer ic results) [facility] Anion Gap 4.0-11.0 Below low normal [facility] BUN 21 mg/dL 9-20 Above high normal [facility] Creatinine 0.80-1.50 Normal (applies to non-numeric resul ts) [facility] GFR 76 mL/min >60 Normal (applies to non-numeric resul ts) [facility] Result based on MDRD formula. Glucose Level 79 mg/dL 74-99 Normal (applies to non-numeric re sults) [facility] The reference range is only applicable w hen fasting. Calcium-Uncorrected 8.4-10.2 Normal (applies to non-nume courtney results) [facility] Corrected Calcium 8.4-10.2 Normal (applies to non-numeri c results) [facility] Bilirubin,Total 0.2-1.3 Normal (applies to non-numeric results) [facility] SGOT(AST) 21 U/L 17-59 Normal (applies to non-numeric resul ts) [facility] SGPT(ALT) 19 U/L 21-72 Below low normal [facility] Alkaline Phosphatase 65 U/L 38-126 Normal (applies to non-num giles results) [facility] can increase Alkaline Phosp le vels up to 2 times the normal adult value. Normal values for children and adolescents are 2 to 3 times the normal adult value. Total Protein 6.3-8.2 Below low normal [facility] Albumin 3.5-5.0 Below low normal [facility] ID Date Data Source [id number] 09/26/2019 08:22:00 AM EDT [facility] Name Value Range Interpretation Code Description Data Milena rce(s) Supporting Document(s) White Blood Count 4.8-10.8 Normal (applies to non-numeri c results) [facility] Red Blood Count 4.35-6.08 Normal (applies to non-numeric results) [facility] Hemoglobin 13.0-17.5 Normal (applies to non-numeric resul ts) [facility] Hematocrit 37.7-51.0 Below low normal [facility] Mean Corpuscular Volume 80-94 Normal (applies to non- numeric results) [facility] Mean Corpuscular Hemoglobin 27.0-33.0 Normal (appli es to non-numeric results) [facility] Mean Corpuscular HGB Conc 32.0-36.0 Normal (applies to no n-numeric results) [facility] Red Cell Distribution Width 11.5-14.5 Normal (appli es to non-numeric results) [facility] Platelet Count 298 X10 3/uL 130-450 Normal (applies to non-numeric results) [facility] Mean Platelet Volume 9.6-13.1 Normal (applies to non-num giles results) [facility] Imm Grans% (AUTO) 0 % 0-2 Normal (applies to non-numeri c results) [facility] Neutrophils % (AUTO) 71 % 40-75 Normal (applies to non-num giles results) [facility] Lymphocytes % (AUTO) 20 % 21-46 Below low normal [facility] Monocytes % (AUTO) 8 % 5-12 Normal (applies to non-numer ic results) [facility] Eosinophils % (AUTO) 2 % 1-5 Normal (applies to non-num giles results) [facility] Basophils % (AUTO) 0 % 0-1 Normal (applies to non-numer ic results) [facility] Imm Grans# (AUTO) 0.0-0.5 Normal (applies to non-numeri c results) [facility] Neutrophils # (AUTO) 1.5-8.1 Normal (applies to non-num giles results) [facility] Lymphocytes # (AUTO) 1.0-3.1 Normal (applies to non-num giles results) [facility] Monocytes # (AUTO) 0.2-1.3 Normal (applies to non-numer ic results) [facility] Eosinophils# (AUTO) 0.0-0.5 Normal (applies to non-nume courtney results) [facility] Basophils # (AUTO) 0.0-0.1 Normal (applies to non-numer ic results) [facility] ID Date Data Source [id number] 09/25/2019 11:33:00 AM EDT [facility] Name Value Range Interpretation Code Description Data Milena rce(s) Supporting Document(s) Opiate Screen,Urine Negative Normal (applies to non-nume courtney results) [facility] Barbiturate Screen,Urine Negative Normal (applies to non -numeric results) [facility] Benzodiazepines Scrn,Ur result Negative N ormal (applies to non-numeric results) [facility] Cocaine Screen,Urine Negative Normal (applies to non-num giles results) [facility] Cannabinoid Screen, Ur Negative Normal (applies to non-n umeric results) [facility] Therapeutic Drug Ranges for Emergency an d Rehabilitation Threshold Levels (ng/mL) Cocaine 300 Opiates 300 Cannabinoids 50 Barbiturates 200 Benzodiazepine 200 Methadone 300 Amphetamines 1000 All positive find ings are presumptive and unconfirmed. Confirmation of positive results are performed only at request of provider. Unconfirmed results must not be used for non-medical purposes (i.e. pre-employment and legal purposes) ID Date Data Source [id number] 09/25/2019 11:09:00 AM EDT [facility] Name Value Range Interpretation Code Description Data Milena rce(s) Supporting Document(s) Color,Urine Yellow Normal (applies to non-numeric resu lts) [facility] Clarity,Urine Clear Normal (applies to non-numeric re sults) [facility] Specific [place],Urine 1.001-1.030 Normal (applies to non- numeric results) [facility] PH,Urine 5.0-8.0 Normal (applies to non-numeric resul ts) [facility] Protein,Urine Negative Normal (applies to non-numeric re sults) [facility] Glucose,Urine (UA) Negative Normal (applies to non-numer ic results) [facility] Ketones,Urine Negative Normal (applies to non-numeric re sults) [facility] Blood,Urine Negative Normal (applies to non-numeric resu lts) [facility] Bilirubin,Urine Negative Normal (applies to non-numeric results) [facility] Urobilinogen,Urine Norm 0.2-1 Normal (applies to non-numer ic results) [facility] Leukocyte Esterase,Urine Negative Normal (applies to non -numeric results) [facility] Nitrite,Urine Negative Normal (applies to non-numeric re sults) [facility] ID Date Data Source [id number] 09/25/2019 11:23:00 AM EDT [facility] Name Value Range Interpretation Code Description Data Milena rce(s) Supporting Document(s) Sodium 139 mmol/L 137-145 Normal (applies to non-numeric resul ts) [facility] Potassium 3.5-5.1 Normal (applies to non-numeric resul ts) [facility] Chloride 103 mmol/L 98-112 Normal (applies to non-numeric resul ts) [facility] Carbon Dioxide CO2 22.0-33.0 Above high normal [facility] Anion Gap 4.0-11.0 Below low normal [facility] BUN 21 mg/dL 9-20 Above high normal [facility] Creatinine 0.80-1.50 Normal (applies to non-numeric resul ts) [facility] GFR 64 mL/min >60 Normal (applies to non-numeric resul ts) [facility] Result based on MDRD formula. Glucose Level 69 mg/dL 74-99 Below low normal [facility] The reference range is only applicable w hen fasting. Calcium-Uncorrected 8.4-10.2 Normal (applies to non-nume courtney results) [facility] Corrected Calcium 8.4-10.2 Normal (applies to non-numeri c results) [facility] Bilirubin,Total 0.2-1.3 Normal (applies to non-numeric results) [facility] SGOT(AST) 24 U/L 17-59 Normal (applies to non-numeric resul ts) [facility] SGPT(ALT) 21 U/L 21-72 Normal (applies to non-numeric resul ts) [facility] Alkaline Phosphatase 67 U/L 38-126 Normal (applies to non-num giles results) [facility] can increase Alkaline Phosp le vels up to 2 times the normal adult value. Normal values for children and adolescents are 2 to 3 times the normal adult value. Total Protein 6.3-8.2 Normal (applies to non-numeric re sults) [facility] Albumin 3.5-5.0 Below low normal [facility] ID Date Data Source [id number] 09/25/2019 11:23:00 AM EDT [facility] Name Value Range Interpretation Code Description Data Milena rce(s) Supporting Document(s) Salicylate 0.0-20.0 Normal (applies to non-numeric resul ts) [facility] ID Date Data Source [id number] 09/25/2019 11:23:00 AM EDT [facility] Name Value Range Interpretation Code Description Data Milena rce(s) Supporting Document(s) Acetaminophen 10.0-30.0 Below low normal [facility] ID Date Data Source [id number] 09/25/2019 11:17:00 AM EDT [facility] Name Value Range Interpretation Code Description Data Milena rce(s) Supporting Document(s) White Blood Count 4.8-10.8 Normal (applies to non-numeri c results) [facility] Red Blood Count 4.35-6.08 Normal (applies to non-numeric results) [facility] Hemoglobin 13.0-17.5 Normal (applies to non-numeric resul ts) [facility] Hematocrit 37.7-51.0 Normal (applies to non-numeric resul ts) [facility] Mean Corpuscular Volume 80-94 Normal (applies to non- numeric results) [facility] Mean Corpuscular Hemoglobin 27.0-33.0 Normal (appli es to non-numeric results) [facility] Mean Corpuscular HGB Conc 32.0-36.0 Normal (applies to no n-numeric results) [facility] Red Cell Distribution Width 11.5-14.5 Below low normal [facility] Platelet Count 323 X10 3/uL 130-450 Normal (applies to non-numeric results) [facility] Mean Platelet Volume 9.6-13.1 Normal (applies to non-num giles results) [facility] Imm Grans% (AUTO) 0 % 0-2 Normal (applies to non-numeri c results) [facility] Neutrophils % (AUTO) 73 % 40-75 Normal (applies to non-num giles results) [facility] Lymphocytes % (AUTO) 17 % 21-46 Below low normal [facility] Monocytes % (AUTO) 8 % 5-12 Normal (applies to non-numer ic results) [facility] Eosinophils % (AUTO) 2 % 1-5 Normal (applies to non-num giles results) [facility] Basophils % (AUTO) 0 % 0-1 Normal (applies to non-numer ic results) [facility] Imm Grans# (AUTO) 0.0-0.5 Normal (applies to non-numeri c results) [facility] Neutrophils # (AUTO) 1.5-8.1 Normal (applies to non-num giles results) [facility] Lymphocytes # (AUTO) 1.0-3.1 Normal (applies to non-num giles results) [facility] Monocytes # (AUTO) 0.2-1.3 Normal (applies to non-numer ic results) [facility] Eosinophils# (AUTO) 0.0-0.5 Normal (applies to non-nume courtney results) [facility] Basophils # (AUTO) 0.0-0.1 Normal (applies to non-numer ic results) [facility] ID Date Data Source [id number] 09/25/2019 11:15:00 AM EDT [facility] Name Value Range Interpretation Code Description Data Milena rce(s) Supporting Document(s) Ethanol Less than 10.0 Normal (applies to non-numeric r esults) [facility] ID Date Data Source [id number] 09/24/2019 01:02:00 PM EDT [facility] Name Value Range Interpretation Code Description Data Milena rce(s) Supporting Document(s) Chlamydia,Urine Negative Normal (applies to non-numeric results) [facility] GC Urine Negative Normal (applies to non-numeric resul ts) [facility] Methodology: Second generation nucleic a nany amplification. ID Date Data Source [id number] 09/20/2019 02:58:00 PM EDT [facility] Name Value Range Interpretation Code Description Data Milena rce(s) Supporting Document(s) Hep Bs Ag Result T-Test Nonreactive Normal (applies to non -numeric results) [facility] ID Date Data Source [id number] 09/20/2019 02:58:00 PM EDT [facility] Value Range Interpretation Code Description Data Milena rce(s) Supporting Document(s) HAVM Nonreactive Normal (applies to non-numeric resu lts) [facility] ID Date Data Source [id number] 09/20/2019 02:58:00 PM EDT [facility] Name Value Range Interpretation Code Description Data Milena rce(s) Supporting Document(s) Vitamin D,Total (25OH) 30.0-100.0 Below low normal [facility] Reference Range: <10 ng/mL: Deficien t 10-30 ng/mL: Insufficient 30-100 ng/mL: Sufficient >100 ng/mL: Toxicity possible ID Date Data Source [id number] 09/20/2019 02:58:00 PM EDT [facility] Name Value Range Interpretation Code Description Data Milena rce(s) Supporting Document(s) Syphilis Serology Nonreactive Normal (applies to non-numer ic results) [facility] ID Date Data Source [id number] 09/20/2019 01:13:00 PM EDT [facility] Value Range Interpretation Code Description Data Milena rce(s) Supporting Document(s) HIV 1/2 Ab p24 Ag Screen Nonreactive Normal (applies to non-numeric results) [facility] ID Date Data Source [id number] 09/20/2019 11:20:00 AM EDT [facility] Name Value Range Interpretation Code Description Data Milena rce(s) Supporting Document(s) Sodium 138 mmol/L 137-145 Normal (applies to non-numeric resul ts) [facility] Potassium 3.5-5.1 Normal (applies to non-numeric resul ts) [facility] Chloride 105 mmol/L 98-112 Normal (applies to non-numeric resul ts) [facility] Carbon Dioxide CO2 22.0-33.0 Normal (applies to non-numer ic results) [facility] Anion Gap 4.0-11.0 Below low normal [facility] BUN 13 mg/dL 9-20 Normal (applies to non-numeric resul ts) [facility] Creatinine 0.80-1.50 Normal (applies to non-numeric resul ts) [facility] GFR >60 Normal (applies to non-numeric results) [facility] Result based on MDRD formula. Glucose Level 81 mg/dL 74-99 Normal (applies to non-numeric re sults) [facility] The reference range is only applicable w hen fasting. Calcium-Uncorrected 8.4-10.2 Normal (applies to non-nume courtney results) [facility] Corrected Calcium 8.4-10.2 Normal (applies to non-numeri c results) [facility] Bilirubin,Total 0.2-1.3 Normal (applies to non-numeric results) [facility] Bilirubin,Direct 0.0-0.3 Normal (applies to non-numeric results) [facility] SGOT(AST) 22 U/L 17-59 Normal (applies to non-numeric resul ts) [facility] SGPT(ALT) 22 U/L 21-72 Normal (applies to non-numeric resul ts) [facility] Alkaline Phosphatase 87 U/L 38-126 Normal (applies to non-num giles results) [facility] can increase Alkaline Phosp le vels up to 2 times the normal adult value. Normal values for children and adolescents are 2 to 3 times the normal adult value. CPK 109 U/L 39-308 Normal (applies to non-numeric resul ts) [facility] Total Protein 6.3-8.2 Normal (applies to non-numeric re sults) [facility] Albumin 3.5-5.0 Normal (applies to non-numeric resul ts) [facility] Thyroid Stimulate Hormone TSH 0.358-3.740 No rmal (applies to non-numeric results) [facility] ID Date Data Source [id number] 09/20/2019 11:20:00 AM EDT [facility] Name Value Range Interpretation Code Description Data Milena rce(s) Supporting Document(s) Magnesium 1.80-2.40 Above high normal [facility] ID Date Data Source [id number] 09/20/2019 11:20:00 AM EDT [facility] Name Value Range Interpretation Code Description Data Milena rce(s) Supporting Document(s) C-Reactive Protein,Wide Range <3.00 Normal (applies t o non-numeric results) [facility] ID Date Data Source [id number] 09/20/2019 10:31:00 AM EDT [facility] Name Value Range Interpretation Code Description Data Milena rce(s) Supporting Document(s) White Blood Count 4.8-10.8 Normal (applies to non-numeri c results) [facility] Red Blood Count 4.35-6.08 Normal (applies to non-numeric results) [facility] Hemoglobin 13.0-17.5 Normal (applies to non-numeric resul ts) [facility] Hematocrit 37.7-51.0 Normal (applies to non-numeric resul ts) [facility] Mean Corpuscular Volume 80-94 Normal (applies to non- numeric results) [facility] Mean Corpuscular Hemoglobin 27.0-33.0 Normal (appli es to non-numeric results) [facility] Mean Corpuscular HGB Conc 32.0-36.0 Normal (applies to no n-numeric results) [facility] Red Cell Distribution Width 11.5-14.5 Normal (appli es to non-numeric results) [facility] Platelet Count 394 X10 3/uL 130-450 Normal (applies to non-numeric results) [facility] Mean Platelet Volume 9.6-13.1 Normal (applies to non-num giles results) [facility] Imm Grans% (AUTO) 0 % 0-2 Normal (applies to non-numeri c results) [facility] Neutrophils % (AUTO) 67 % 40-75 Normal (applies to non-num giles results) [facility] Lymphocytes % (AUTO) 25 % 21-46 Normal (applies to non-num giles results) [facility] Monocytes % (AUTO) 6 % 5-12 Normal (applies to non-numer ic results) [facility] Eosinophils % (AUTO) 2 % 1-5 Normal (applies to non-num giles results) [facility] Basophils % (AUTO) 0 % 0-1 Normal (applies to non-numer ic results) [facility] Imm Grans# (AUTO) 0.0-0.5 Normal (applies to non-numeri c results) [facility] Neutrophils # (AUTO) 1.5-8.1 Normal (applies to non-num giles results) [facility] Lymphocytes # (AUTO) 1.0-3.1 Normal (applies to non-num giles results) [facility] Monocytes # (AUTO) 0.2-1.3 Normal (applies to non-numer ic results) [facility] Eosinophils# (AUTO) 0.0-0.5 Normal (applies to non-nume courtney results) [facility] Basophils # (AUTO) 0.0-0.1 Normal (applies to non-numer ic results) [facility] ID Date Data Source [id number] 09/19/2019 02:46:00 PM EDT [facility] Name Value Range Interpretation Code Description Data Milena rce(s) Supporting Document(s) Opiate Screen,Urine Negative Normal (applies to non-nume courtney results) [facility] Amphetamine Screen,Urine Negative [facility] Benzodiazepines Scrn,Ur result Negative N ormal (applies to non-numeric results) [facility] Cocaine Screen,Urine Negative Normal (applies to non-num giles results) [facility] Methadone Screen,Urine Negative Normal (applies to non-n umeric results) [facility] Cannabinoid Screen, Ur Negative Normal (applies to non-n umeric results) [facility] Therapeutic Drug Ranges for Emergency an d Rehabilitation Threshold Levels (ng/mL) Cocaine 300 Opiates 300 Cannabinoids 50 Barbiturates 200 Benzodiazepine 200 Methadone 300 Amphetamines 1000 All positive find ings are presumptive and unconfirmed. Confirmation of positive results are performed only at request of provider. Unconfirmed results must not be used for non-medical purposes (i.e. pre-employment and legal purposes) ID Date Data Source [id number] 09/19/2019 02:28:00 PM EDT [facility] Name Value Range Interpretation Code Description Data Milena rce(s) Supporting Document(s) Color,Urine Yellow Normal (applies to non-numeric resu lts) [facility] Clarity,Urine Clear Normal (applies to non-numeric re sults) [facility] Specific [place],Urine 1.001-1.030 Normal (applies to non- numeric results) [facility] PH,Urine 5.0-8.0 Normal (applies to non-numeric resul ts) [facility] Protein,Urine Negative Normal (applies to non-numeric re sults) [facility] Glucose,Urine (UA) Negative Normal (applies to non-numer ic results) [facility] Ketones,Urine Negative Normal (applies to non-numeric re sults) [facility] Blood,Urine Negative Normal (applies to non-numeric resu lts) [facility] Bilirubin,Urine Negative Normal (applies to non-numeric results) [facility] Urobilinogen,Urine Norm 0.2-1 Normal (applies to non-numer ic results) [facility] Leukocyte Esterase,Urine Negative Normal (applies to non -numeric results) [facility] Nitrite,Urine Negative Normal (applies to non-numeric re sults) [facility] ID Date Data Source [id number] 09/12/2019 06:24:00 PM EDT [facility] Name Value Range Interpretation Code Description Data Milena rce(s) Supporting Document(s) HIV Screen result Nonreactive Normal (applies to non-numer ic results) [facility] [address] [place] [address] Director: Gee Hightower MD ID Date Data Source [id number] 09/12/2019 03:41:00 PM EDT [facility] Name Value Range Interpretation Code Description Data Milena rce(s) Supporting Document(s) HIV 1/2 Ab p24 Ag Screen Nonreactive Normal (applies to non-numeric results) [facility] Test Performed By: [facility] [address] [place] [address] Director: Gee Hightower MD ID Date Data Source [id number] 09/12/2019 07:34:00 AM EDT [facility] Name Value Range Interpretation Code Description Data Milena rce(s) Supporting Document(s) Sodium 140 mmol/L 136-145 Normal (applies to non-numeric resul ts) [facility] Potassium 3.5-5.1 Normal (applies to non-numeric resul ts) [facility] Chloride 105 mmol/L 98-107 Normal (applies to non-numeric resul ts) [facility] Carbon Dioxide CO2 21-32 Normal (applies to non-numer ic results) [facility] Anion Gap 5.0-16.0 Normal (applies to non-numeric resul ts) [facility] BUN 11 mg/dL 7-18 Normal (applies to non-numeric results) [facility] Creatinine,Serum 0.8-1.5 Normal (applies to non-numeric results) [facility] GFR >60 Normal (applies to non-numeric results) [facility] Glucose Level 97 mg/dL 60-99 Normal (applies to non-numeric re sults) [facility] Reference range is only applicable when patient is fasting Note the following drug interference: Sulfasalazine Sulfapyridine Can see falsely depressed Can see falsely elevated result with up to 17% results with up to 11% decrease in measurement increase in measurement Recommend patients be collected for this test prior to administration of either drug. Calcium 8.5-10.1 Normal (applies to non-numeric resul ts) [facility] ID Date Data Source [id number] 09/12/2019 07:04:00 AM EDT [facility] Name Value Range Interpretation Code Description [facility](s) White Blood Count 3.5-10.5 Normal (applies to non-numeri c results) [facility] Red Blood Count 4.30-5.70 Normal (applies to non-numeric results) [facility] Hemoglobin 13.5-17.5 Normal (applies to non-numeric resul ts) [facility] Hematocrit 38.8-50.0 Normal (applies to non-numeric resul ts) [facility] Mean Corpuscular Volume 81.2-95.1 Normal (applies to non- numeric results) [facility] Mean Corpuscular Hgb 25.6-32.2 Normal (applies to non-num giles results) [facility] Mean Corpuscular Hgb Conc 32.0-36.0 Normal (applies to no n-numeric results) [facility] Red Cell Distribution Width 11.8-15.6 Normal (appli es to non-numeric results) [facility] Platelet Count 360 x10 3/uL 150-450 Normal (applies to non-numeric results) [facility] Mean Platelet Volume 9.4-12.4 Normal (applies to non-num giles results) [facility] Neutrophils% (Auto) 31.0-71.0 Normal (applies to non-nume courtney results) [facility] Lymphocytes% (Auto) 20.0-55.0 Normal (applies to non-nume courtney results) [facility] Monocytes% (Auto) 4.0-12.0 Normal (applies to non-numeri c results) [facility] Eosinophils% (Auto) 1.0-8.0 Normal (applies to non-nume courtney results) [facility] Basophils% (Auto) 0.0-2.0 Normal (applies to non-numeri c results) [facility] Immature Granulocytes% (Auto) 0.0-2.0 Normal (crescencio lies to non-numeric results) [facility] Neutrophils# (Auto) 1.50-6.20 Normal (applies to non-nume courtney results) [facility] Lymphocytes# (Auto) 1.20-4.00 Normal (applies to non-nume courtney results) [facility] Monocytes# (Auto) 0.00-0.90 Normal (applies to non-numeri c results) [facility] Eosinophils# (Auto) 0.00-0.50 Normal (applies to non-nume courtney results) [facility] Basophils# (Auto) 0.00-0.20 Normal (applies to non-numeri c results) [facility] Immature Granulocytes# (Auto) 0.00-7.00 No rmal (applies to non-numeric results) [facility] ID Date Data Source [id number] 09/12/2019 09:43:00 AM EDT [facility] Imaging Services Department Imaging Report [address] [place] [id number] %(RAD)RES..mtdd.print.filter("line") Name: RIVERA LEONE : 1970 Age/Sex: 49M Ordering Provider: SARAH Goldberg Med Rec #: [id number] Reg Status: DIS IN Room #: 137-1 Date of Service: 09/11/19 Report Number: [id number] cc:SARAH Goldberg; PCP None Send Report To: [id number] US/US Dup Upper Ext Veins Rt Reason [...] Date/Time: 09/11/19 1631 Transcribed Date/Time: 09/12/19 0943 Director Of Pulmonary Unit: ULISSES Name Value Range Interpretation Code Description Data Milena rce(s) Supporting Document(s) ID Date Data Source [id number] 09/13/2019 05:30:00 PM EDT [facility] Name Value Range Interpretation Code Description Data Milena rce(s) Supporting Document(s) Chlamydia,Urine result Negative Normal (applies to non-n umeric results) [facility] Test Performed By: [facility] [address] [place] [address] Director: Gee Hightower MD . GC Urine result Negative Normal (applies to non-numeric results) [facility] Test Performed By: [place] [address] Director: Gee Hightower MD . Methodology: Second generation nucleic acid amplification. ID Date Data Source [id number] 09/13/2019 03:52:00 PM EDT [facility] Value Range Interpretation Code Description Data Milena rce(s) Supporting Document(s) Chlamydia,Urine Negative Normal (applies to non-numeric results) [facility] Test Performed By: [facility] [address] [place] [address] Director: Gee Hightower MD . GC Urine Negative Normal (applies to non-numeric resul ts) [facility] Test Performed By: [place] [address] Director: Gee Hightower MD . Methodology: Second generation nucleic acid amplification. ID Date Data Source [id number] 09/13/2019 06:25:00 AM EDT [facility] Value Range Interpretation Code Description Data Milena rce(s) Supporting Document(s) Hepatitis A Ab,IgG result Normal (applies to no n-numeric results) [facility] Result indicates no past exposure or imm unity to hepatitis A infection. REFERENCE VALUE Unvaccinated: Negative Vaccinated: Positive Test Performed by: [facility] [address] [place] [address] Mechanical Engineering Professor: Joseph Morales M.D. Ph.D.; CLIA# [id number] ID Date Data Source [id number] 09/10/2019 11:13:00 PM EDT [facility] Name Value Range Interpretation Code Description Data Milena rce(s) Supporting Document(s) Sodium 138 mmol/L 136-145 Normal (applies to non-numeric resul ts) [facility] Potassium 3.5-5.1 Normal (applies to non-numeric resul ts) [facility] Chloride 100 mmol/L 98-107 Normal (applies to non-numeric resul ts) [facility] Carbon Dioxide CO2 21-32 Normal (applies to non-numer ic results) [facility] Anion Gap 5.0-16.0 Normal (applies to non-numeric resul ts) [facility] BUN 10 mg/dL 7-18 Normal (applies to non-numeric results) [facility] Creatinine,Serum 0.8-1.5 Normal (applies to non-numeric results) [facility] GFR >60 Normal (applies to non-numeric results) [facility] Glucose Level 141 mg/dL 60-99 Above high normal [facility] Reference range is only applicable when patient is fasting Note the following drug interference: Sulfasalazine Sulfapyridine Can see falsely depressed Can see falsely elevated result with up to 17% results with up to 11% decrease in measurement increase in measurement Recommend patients be collected for this test prior to administration of either drug. Calcium 8.5-10.1 Normal (applies to non-numeric resul ts) [facility] Bilirubin,Total 0.1-1.9 Normal (applies to non-numeric results) [facility] SGOT(AST) 20 U/L 15-37 Normal (applies to non-numeric resul ts) [facility] Note the following drug interference: Sulfasalazine Sulfapyridine Can see falsely depressed Can see falsely elevated result with up to 10% results with up to 10% decrease in measurement increase in measurement Recommend patients be collected for this test prior to administration of either drug. SGPT(ALT) 18 U/L 12-78 Normal (applies to non-numeric resul ts) [facility] Note the following drug interference: Sulfasalazine Sulfapyridine Can see falsely depressed Can see falsely elevated result with up to 29% results with up to 10% decrease in measurement increase in measurement Recommend patients be collected for this test prior to administration of either drug. Alkaline Phosphatase 88 U/L 38-126 Normal (applies to non-num giles results) [facility] can increase Alkaline Phosp le vels up to 2 times the normal adult value. Normal values for children and adolescents are 2 to 3 times the normal adult value. Total Protein 6.0-8.2 Normal (applies to non-numeric re sults) [facility] Albumin Level 3.4-5.0 Normal (applies to non-numeric re sults) [facility] ID Date Data Source [id number] 09/10/2019 11:13:00 PM EDT [facility] Name Value Range Interpretation Code Description Data Milena rce(s) Supporting Document(s) Bilirubin,Direct 0.05-0.20 Normal (applies to non-numeric results) [facility] ID Date Data Source [id number] 09/10/2019 11:13:00 PM [facility] Name Value Range Interpretation Code Description Data Milena rce(s) Supporting Document(s) Phosphorus 2.5-4.9 Normal (applies to non-numeric resul ts) [facility] ID Date Data Source [id number] 09/10/2019 11:13:00 PM EDT [facility] Name Value Range Interpretation Code Description Data Milena rce(s) Supporting Document(s) Magnesium 1.8-2.4 Normal (applies to non-numeric resul ts) [facility] ID Date Data Source [id number] 09/10/2019 11:13:00 PM [facility] Name Value Range Interpretation Code Description Data Milena rce(s) Supporting Document(s) Thyroid Stimulate Hormone TSH 0.358-3.74 No rmal (applies to non-numeric results) [facility] ID Date Data Source [id number] 09/11/2019 01:42:00 PM EDT [facility] Name Value Range Interpretation Code Description Data Milena rce(s) Supporting Document(s) Hep Bs Ag result T-Test Nonreactive Normal (applies to non -numeric results) [facility] Test Performed By: [facility] [address] [place] [address] Director: Gee Hightower MD ID Date Data Source [id number] 09/11/2019 01:42:00 PM EDT [facility] Value Range Interpretation Code Description Data Milena rce(s) Supporting Document(s) CPK result 140 U/L 39-308 Normal (applies to non-numeric resul ts) [facility] Test Performed By: [facility] [address] [place] [address] Director: Gee Hightower MD ID Date Data Source [id number] 09/11/2019 01:42:00 PM EDT [facility] Value Range Interpretation Code Description Data Milena rce(s) Supporting Document(s) Syphilis Serology result Nonreactive Normal (applies to non-numeric results) [facility] Test Performed By: [facility] [address] [place] [address] Director: Gee Hightower MD ID Date Data Source [id number] 09/11/2019 01:21:00 PM EDT [facility] Value Range Interpretation Code Description Data Milena rce(s) Supporting Document(s) Hep Bs Ag Result T-Test Nonreactive Normal (applies to non -numeric results) [facility] Test Performed By: [facility] [address] [place] [address] Director: Gee Hightower MD ID Date Data Source [id number] 09/11/2019 01:21:00 PM EDT [facility] Value Range Interpretation Code Description Data Milena rce(s) Supporting Document(s) Syphilis Serology Nonreactive Normal (applies to non-numer ic results) [facility] Test Performed By: [facility] [address] [place] [address] Director: Gee Hightower MD ID Date Data Source [id number] 09/11/2019 12:28:00 PM EDT [facility] Name Value Range Interpretation Code Description Data Milena rce(s) Supporting Document(s) CPK 140 U/L 39-308 Normal (applies to non-numeric resul ts) [facility] Test Performed By: [facility] [address] [place] [address] Director: Gee Hightower MD ID Date Data Source [id number] 09/10/2019 10:58:00 PM EDT [facility] Name Value Range Interpretation Code Description Data Milena rce(s) Supporting Document(s) Ethanol Less than 10.0 Normal (applies to non-numeric r esults) [facility] ID Date Data Source [id number] 09/10/2019 10:42:00 PM EDT [facility] Name Value Range Interpretation Code Description Data Milena rce(s) Supporting Document(s) White Blood Count 3.5-10.5 Above high normal [facility] Red Blood Count 4.30-5.70 Normal (applies to non-numeric results) [facility] Hemoglobin 13.5-17.5 Normal (applies to non-numeric resul ts) [facility] Hematocrit 38.8-50.0 Normal (applies to non-numeric resul ts) [facility] Mean Corpuscular Volume 81.2-95.1 Normal (applies to non- numeric results) [facility] Mean Corpuscular Hgb 25.6-32.2 Normal (applies to non-num giles results) [facility] Mean Corpuscular Hgb Conc 32.0-36.0 Normal (applies to no n-numeric results) [facility] Red Cell Distribution Width 11.8-15.6 Normal (appli es to non-numeric results) [facility] Platelet Count 366 x10 3/uL 150-450 Normal (applies to non-numeric results) [facility] Mean Platelet Volume 9.4-12.4 Normal (applies to non-num giles results) [facility] Neutrophils% (Auto) 31.0-71.[address] [facility] Lymphocytes% (Auto) 20.0-55.0 Below low normal [facility] Monocytes% (Auto) 4.0-12.0 Normal (applies to non-numeri c results) [facility] Eosinophils% (Auto) 1.0-8.0 Normal (applies to non-nume courtney results) [facility] Basophils% (Auto) 0.0-2.0 Normal (applies to non-numeri c results) [facility] Immature Granulocytes% (Auto) 0.0-2.0 Normal (crescencio lies to non-numeric results) [facility] Neutrophils# (Auto) 1.50-6.[address] [facility] Lymphocytes# (Auto) 1.20-4.00 Normal (applies to non-nume courtney results) [facility] Monocytes# (Auto) 0.00-0.90 Normal (applies to non-numeri c results) [facility] Eosinophils# (Auto) 0.00-0.50 Normal (applies to non-nume courtney results) [facility] Basophils# (Auto) 0.00-0.20 Normal (applies to non-numeri c results) [facility] Immature Granulocytes# (Auto) 0.00-7.00 No rmal (applies to non-numeric results) [facility] ID Date Data Source [id number] 09/10/2019 11:16:00 PM EDT [facility] Name Value Range Interpretation Code Description Data Milena rce(s) Supporting Document(s) UDS Phencyclidine Screen Negative Normal (applies to non -numeric results) [facility] UDS Benzodiazepines Screen Negative Normal (applies to n on-numeric results) [facility] UDS Cocaine Screen Negative Normal (applies to non-numer ic results) [facility] UDS Ampetamine Screen Negative [facility] UDS Cannabinoids Screen Negative Normal (applies to non- numeric results) [facility] UDS Opiates Screen Negative [facility] UDS Barbiturates Screen Negative Normal (applies to non- numeric results) [facility] UDS Tricyclic Screen Negative Normal (applies to non-num giles results) [facility] Therapeutic Drug Ranges for Emergency Threshold [...] treatment purposes only. ID Date Data Source [id number] 09/10/2019 10:57:00 PM EDT [facility] Collected By: Nurse Initials: by Time Collected: 7 Name Value Range Interpretation Code Description Data Milena rce(s) Supporting Document(s) Color,Urine Colorl-Dk Y Normal (applies to non-numeric res ults) [facility] Clarity,Urine Clear Normal (applies to non-numeric re sults) [facility] Specific [place],Urine 1.005-1.030 Normal (applies to non- numeric results) [facility] pH,Urine 5.0-8.0 Normal (applies to non-numeric resul ts) [facility] Protein,Urine Negative Normal (applies to non-numeric re sults) [facility] Glucose,Urine Negative Normal (applies to non-numeric re sults) [facility] Ketones,Urine Negative Normal (applies to non-numeric re sults) [facility] Blood,Urine Negative Normal (applies to non-numeric resu lts) [facility] Bilirubin,Urine Negative Normal (applies to non-numeric results) [facility] Urobilinogen,Urine 0.2-1.0 Normal (applies to non-numer ic results) [facility] Leukocyte Esterase,Urine Negative Normal (applies to non -numeric results) [facility] Nitrite,Urine Negative Normal (applies to non-numeric re sults) [facility] ID Date Data Source [id number] 09/13/2019 07:09:00 AM EDT [facility] Name Value Range Interpretation Code Description Data Milena rce(s) Supporting Document(s) Hepatitis A Ab,IgG result Normal (applies to no n-numeric results) [facility] Result indicates no past exposure or imm unity to hepatitis A infection. REFERENCE VALUE Unvaccinated: Negative Vaccinated: Positive Test Performed by: [facility] [address] [place] [address] Mechanical Engineering Professor: Joseph Morales M.D. Ph.D.; CLIA# [id number] ID Date Data Source [id number] 05/13/2019 02:28:17 PM EDT [facility] Name Value Range Interpretation Code Description Data Milena rce(s) Supporting Document(s) Discharge Summary [facility] ZCIBHm2zAxZTPcIh69/SLUrjHFJaf6QjSMwlNOe4VNokRIGqA7HbOVC8pL2fKNX2TKeZWeOfHoEuSoW3 lbm HeEtaMOuVrGUXuKybIRrJmZTzdUrlofGTlCB9FsFE2KAPoD87cOOGaZPRmY6XgYOH6JKE+En6IRAXbmL FtDS1HErsG2Z0IfdSWDI5wRu9oqcDE3k2o9wvRvDHPEFeqFN0brLRFYiBX4AQ2pm8xrsea4vJbjKdDdC JI1bDCfk/40Mr5n6jH/b2xKHt2xgi3/29/jVOjLmfq 11/E3JFq8V34+6TKQs6PK/Yg8qJlX7/vvjBI/qtC3RygzIOgHT7r0gfgqHIK20S9z2i8I18bke+0aeCb dMbE5GtIQtfbtDQk7cNpPGjqHNj0y4Ccs8xmc4VU8v+qi/jHU9OUeine5UNRmzKcstk9Btqsl5b0AFVv KzzAGTvLh2t1qdPpYrlKxDuBV4+ogyw51vboRgSVQL 7szifjuFovtubzXCjkmXSrE9mGyN5KKOswz5yrxqhnAOzdMkwFwU0YJO1HOJjjIwczuYWe9uZhuYmO9i PjwWvsYPAAp4rs+yNjMStYqhxXQdJyIF2ZWMUrEf7xt5pxEJX3SkxnPqEle27oTYkxpMIfACuKnVMNzx 6xdOzgggyPvF12luevqiG/6gB7aj3CljqjokYYsJ56 shY9LV1ptfqVGV8hgJS7l5cMupKv7HWb8ynac1HRPCOC5AjmoqaOE2Prax7fCSZBzpTF26McnuhsFI1X DA2bLaljKMziLL+DqAY7bjpk8ukL2jIbvtXjHRWcHw3x8uFwMtUaY1aO+6t5u7wv21g1DV+U3xsjQxbs iBgN3GkFrMh+f5KeGK/g9OK6XGz0a1PyefKJDYGkXt 4GuEGG8OZzvdJJdB07LG0DPg5eJURzh7c/zFoIa+Tnq+YaaFIPwmcz1r8G+SqveE8wgYSYgtM4dTMgAQ skVIlE7BU8LrLwU2An4gnjV8W+6TFkjqI9WQXCza9Brsmr8X6ySMVcliZeLKsU9NNkCaJt0HT8JZyotJ 6Zerkr5B87azviZX4/IeTc2FF4slEVtzfJeaCXEU1Z LuM2cYaB4mPTwXFD3XYkBrAVfqrtSNtxlCrAoclMpVO5CpWlbcn7hlvSnkJTEYNCfg34oRCGK9DqVL5S manager cardiology/7mKUY9qs9mDrgotwX4XIi+MxLcmrbNhEenZ7p0DBSyljA6oF6LH/ov9IFojxPxtNrH98FpOSWQnk [file] ICAgICAgICAgICAgICAgICAgICAgICAgICAgICAgIC AgICAgICAgICAgICAgICAgICAgICANCiAgICAgICAgICAgICAgICAgICAgICAgICAgICAgICAgICAgIC AgICAgICAgICAgICAgICAgICAgICAgICAgICAgICAgICAgICAgICAgICAgICAgICAgICAgICAgICAgIC AgICANCiAgICAgICAgICAgICAgICAgICAgICAgICAg ICAgICAgICAgICAgICAgICAgICAgICAgICAgICAgICAgICAgICAgICAgICAgICAgICAgICAgICAgICAg ICAgICAgICAgICAgICANCiAgICAgICAgICAgICAgICAgICAgICAgICAgICAgICAgICAgICAgICAgICAg ICAgICAgICAgICAgICAgICAgICAgICAgICAgICAgIC AgICAgICAgICAgICAgICAgICAgICAgICANCiAgICAgICAgICAgICAgICAgICAgICAgICAgICAgICAgIC AgICAgICAgICAgICAgICAgICAgICAgICAgICAgICAgICAgICAgICAgICAgICAgICAgICAgICAgICAgIC AgICAgICANCiAgICAgICAgICAgICAgICAgICAgICAg ICAgICAgICAgICAgICAgICAgICAgICAgICAgICAgICAgICAgICAgICAgICAgICAgICAgICAgICAgICAg ICAgICAgICAgICAgICAgICANCiAgICAgICAgICAgICAgICAgICAgICAgICAgICAgICAgICAgICAgICAg ICAgICAgICAgICAgICAgICAgICAgICAgICAgICAgIC AgICAgICAgICAgICAgICAgICAgICAgICAgICANCiAgICAgICAgICAgICAgICAgICAgICAgICAgICAgIC AgICAgICAgICAgICAgICAgICAgICAgICAgICAgICAgICAgICAgICAgICAgICAgICAgICAgICAgICAgIC AgICAgICAgICANCiAgICAgICAgICAgICAgICAgICAg ICAgICAgICAgICAgICAgICAgICAgICAgICAgICAgICAgICAgICAgICAgICAgICAgICAgICAgICAgICAg ICAgICAgICAgICAgICAgICAgICANCiAgICAgICAgICAgICAgICAgICAgICAgICAgICAgICAgICAgICAg ICAgICAgICAgICAgICAgICAgICAgICAgICAgICAgIC AgICAgICAgICAgICAgICAgICAgICAgICAgICAgICANCjw/tKErG2agyTJfzwC6D2juFe2XTx5TWT3qz4 EtIXQjBYtymyRsCprVUjIjWPViUxdBHzy4OHifYQ7MlMGpZ5RpY1PyZZbpUW0ATRLqYFJcqRZwQBUuUT OiKyD5TCJuNKhoAZ8QkWGuTMzoOUFtPQKxJW1BZGVw U433esKhVJ7BJc1AJgVoLC0fsx6VAStaNZHgTtpBZif4MKerME1VoIUffBOvSNFkFEXVVfJkU1mja8Gb QGxkQFTSAYexRE6Nq7DnbSAvUAg+Rc2XPL9hd8VrDGtfXFTmWD4pbu0PERzBYrMrM4SglBdpHDLdo1Ez TEQbJREAnX8rIFF1RRR4OLQrwNVecSQCRKT3iJ0bEY vzwnMvAI5JFCV9QAVpWD0qXJIlJPDrNoTnSBHGRM2JISGiCZDnwWWxXPYnRDFUUJ1AMRkyUKX2Pohotv LapDXqKUkdSN0LKOGcviOzZBcsOWWPXJt+Ad1DOK0tw1HjWIqfUYXhZI4sbd9SFXtMFmIqI1J5rRMzN9 H3CBskJc8ONSEqMHPgEYVkLLBAPYjwXV0HMO9juqT1 BP0NpMJgULIaTCDixLVrZGv1I32mtIYtENqaXR2MMFG+Nacho+Yx9YZVFoSBMyWDFhIvFhFQRPXmDjO8Nr F7JGn9CwZ1ZyQJ38fQatyfZhNPwnGW5KYI8kRQXlJHVZUC2SjLApkJ6triVnJgPoCFHZRwCzB59dyWIm OCFbQRQ4ULJhTy8FXRMeN4GetzGaxYotstEiACFpRU YNWP9DBIxzvqEwjTPoyNonDG45hGxbQX7OXx0TOsOvXW0dkr3JqPOvSq9CANDtBX7CCDNwFYElPAUeIH Q1ONTfIsMvODvnLNNcMHSqNGE7PCNdSBJiTO9VMaCwBYPnSNihObElMKXhHRWfpk8OJWFnTNCjYAMuXy RkXDDtOLUyGTnvKVFjAQBwOKK2EBFaPNSjSR3IKuIt RTWwTYUdMuUgCDCtUCMnxq5PNLDdKIJePyXfYIRoSPIhVQHaQSwsPOPqQBH1DZwwGGZmPEAyHW0SJdBj ORDxHKAaLYXnJYJqXQFwgh9WHFEjLNZlJUJ1LPZeODUvUUWpTPrrOIAxAOM3BJJ9FKHgUIZvML3FNfSu IXLfPST7XzPbMFVlCXIkaq2ILLXtMKLrLUzmRdFcLO LgTOEnBZnnMCQjPLJ2NZC4FZFuEAMxSV4JKjVrETLyWAjvLzWsZVMbDHEefw4CJJRjPFTqEqD2GPEeWE PuGCOoUXvfDUSpINE6OmybAVHuWBCdKO4SIoJwOYZkFWfmULUqIYHbEQLiwi5BUMZzFNPwDPM2PvNiBZ PvNNWyDPdsZNFpCKI2CjM3AMWuTKPwMN2TZoJnCRum OKBJOju6YPhyB5r2CSLrAE3IK3Jjc9TpFBysIFNGWBhkON8nqlHfHQCfNu9JX1gSKqj8DuBwAjSkVHG8 AVTyNkSdKdSaWELoA1IvGNAySsJjGm3kPVk2RZQrIHZvNLE4PuWcMGHjAKVlYLPgSSA1NAYkHdB9LbKr DG2UAn1KNkJ3ETK2qCNaLp7KSBC9Xg1DWIVCD6KEUw== ID Date Data Source [id number] 05/13/2019 02:12:15 PM EDT [facility] Name Value Range Interpretation Code Description Data Milena rce(s) Supporting Document(s) Progress Notes [facility] MITNYj3wExVZLgFf08/NSPuxAXNzr0UpQRsxQWw3COxnOARsI1ItFWF9kR7mYDX4PHtWEhPhMuInWlA1 lbm [file] 2uOZOWAc2+QMphwCDdiSkyNJQVIjx6EUoEYbIxFW4XXUt= ID Date Data Source [id number] 05/13/2019 02:12:10 PM EDT [facility] Name Value Range Interpretation Code Description Data Milena rce(s) Supporting Document(s) Progress Notes [facility] ZPVNQv5mTxASPvCm33/PYMtgMSQga1ZkFLhvUAs5YZopYTNmF9AbJEP1lQ1iKSW5CHhHQgYkWmYnNiC2 lbm [file] MTliNDA+UP1dMHg+Qg0Ea9GidsK6xjXlCVs1PiH9BBboUSKIOg3F ID Date Data Source [id number] 05/13/2019 01:39:01 PM EDT [facility] Name Value Range Interpretation Code Description Data Milena rce(s) Supporting Document(s) Progress Notes [facility] QVUPJw1eLcSGYeAu70/OLRizGJWxi2ThEXvvDOm0OQyxFJZrH9RzCDK3kD8qPIY4FHdFCkIjKiMaCdE0 lbm [file] GKWwS9ThZyUlVP3NUm5HNxF4BMS9rBYqSz7WDlI8SMTCVvXuLV7JOQm= ID Date Data Source [id number] 05/13/2019 10:59:59 AM EDT [facility] Name Value Range Interpretation Code Description Data Milena rce(s) Supporting Document(s) Progress Notes [facility] IJMKVn8iWkWNSiSa52/DMHeaTTFfx8PfAOuwKKo2JIzuVFTnM3ZmWHW6xS0zXVA9PDgQLtTlZeGeElL8 lbm SrOnkEIbPaVYZoMifPIqFwQRybUudirMGiHA7NxCN0GKDsF62iAPFhKQBqZ6VvGJLeIMl+Qe7TPGNetD PsGL1ODjqY7Unkh3c0VB7esV/Aq1LNehTOUiydWVQhaPGUF2aRiD3IQNb45sw2iMoFO4E/zdKkwQe9nk 8E9YKLIMbjIuhe31BCalja/vtbHNpUSimq//tH67WY OFjcktK1tDeyZ4z2tocaMKqutu8zVAl64fOV5vgkim/TOScfOQkZL1OTYanLfapwMnvW49x8kmUdbw4v 6bj6LlRZs9AY9NCum0HJ1W1tK971oETapNqutwxiep3VWAgZMnSWLzVjfs8xRn6foBTglt7eYnCgxl1L MqspWT0t5KUN4nk22JdEzQzZ4BaDjf6vUqd+ub/Wg6 0P2hNTyOvilyTHAvmHp+0udNSeHzYiIpYeBnNDDC2mLTCHI5CMjM8PK5ovqFiFaDpHDb72DEVECf06jI FQosiPog+KeYhW96GbzSeoF1o1iRjub66Aj5QCTnbIhAEaRLbQJBtY8SXDLxXgGKPH3gQYFUozVnXy3J guWtxsbgSd3P9OpvM1MZ716B+i5KcaWrbOE1UEWru2 GbNmOSmE6M5K+spNqGPaDbtFTHgp7A69S1iJZl/j4yCAcHKpuoXT/0dS4H6OURETv50ad/wk5bn++U8x scott/lVutDej5Gw42NdYMknoA4Rr8h5l2Y3k6f32gHfM+IKb4hXqdqwDH2xvAmbmjPJOFHfa2z85h+SMt qvt6IxzNs1fU/B+QaIy/wv3ks37lv5e3WOB5XuMJBi JeHMfvuAcU5dYk6d9Sd8TjD/yszMvNOmqrOp+keaW4hNhUfcv2nOQDNDvwnemQQ9aZYpi+35N6lvM/cP T++BBoZQzKXvs5qZXfZFIKM4ZlQ8qvIwXpASgUgJTtdJfDQe4ZXvQ1+LGDeZBC0f6Lc7k9siJwGvexhc L87psBYwUsHepxbvWZXBvj9xlRQBOgPxPBuIpTd6fq ZhDEfLICSBkO9ZsPFdWgCNl006rm03ai7yx2p+0ituAHYMvoCl4zNdbzJyiJmNgdDTCIP/uqIcIhrFiW 4iS/Qal5DczVsvu68e2ieImJkUyecVurZf7q0pyhIMvni/ky4I46BsFCJmHw7snZHekJ5QKSNjZ3v9U3 E1YY29B16bk5bH0Clero8w8Ee3cYELUIqK2MPZicDE JZFEUe3vOiYIRFgtpmtOeWm0vN5VJQP3E8NxJtbAs9z3RWS2PGEuLzKoiZw87DxQeoOWxy3yNRYzQDDn W70NC4JAn8q6ZotqGZ9cTDD4sMYJEsW4vBBdbxe4ARKMPjOokcGa5m32FP+iSz4v8loUYD5KRyq5NjYZ aD1xvjjb6TzgRrNUrFocvGPbG31mjQlR9AEDoKxOZO Q/ve0imtFHCNt9JaaASwTr2ibSQDLufcGYMNdJ2JMjwDK9TmcR3XmWIPvkhtcJ0l6rKDdbeb6TNx7I2m ABsB3jv5Q8jmWTXPEP/SPVXv35FSWjbnQz0lJOMcy7cRQbThmvirrIMAW3qV/WI3IkCM32cw+MIMIWni RpB3QYo2+dBYQ1AHizEKC5V1Af+dW0xp0Ho96EXnZW j+R1B5GxRjDeggkaXyMZpVvqxUikoCrQh7cKd+2NszI5n8MTJPgIJ8ib9N92GDxBO3W8678Q49mGl2Yj j+Pattie+d85Jt6TVX3Fb23vyCd8nGcNyFG0Jr9ExfJn06ft5vfd/BRB5LdPHMqVrGUM7laAcqT4ISY9ap0 [file] ICAgICAgICAgICAgICAgICAgICAgICAgICAgICAgICAgICAgICAgICAgICAgICAgICAgICAgICAgICAg SJTlMEOjFVWfLWKjUXRjBSSiWLFqNIVpWWEdLF9WXG AgICAgICAgICAgICAgICAgICAgICAgICAgICAgICAgICAgICAgICAgICAgICAgICAgICAgICAgICAgIC TtNAOdPXAqOJLmEJHkRKNnAXEyJTTvSLLaTVGdNLQzRWEwKATwYB7KLDSpMTNcDDRmJUGhNOSpSLRqZP AgICAgICAgICAgICAgICAgICAgICAgICAgICAgICAg HQEqDZIrCZTnSTOgJBTiTNInKUCyCJWsBVOjFVQoQWCfIZLrWOTyDOWeJUMwIDYhSB3WXWHsWJScWWRh ICAgICAgICAgICAgICAgICAgICAgICAgICAgICAgICAgICAgICAgICAgICAgICAgICAgICAgICAgICAg ICAgICAgICAgICAgICAgICAgICAgICAgICAgICAgIA 0KICAgICAgICAgICAgICAgICAgICAgICAgICAgICAgICAgICAgICAgICAgICAgICAgICAgICAgICAgIC UrWCSdUYDcMZBgCBQkVXYaHXHqBAHgGCGxYANeCPEzAVWdKVBkLEXrJK0MCVJoLFVbBEGiKTUpUXAaJB AgICAgICAgICAgICAgICAgICAgICAgICAgICAgICAg YPNgQKUiEXLbBJBhPFCvZKByKFJfGGSfGZGnZXXhNYPtGLRqZHRuDAGlPCOlXBVnOHCfOU2VWNRpOEBh ICAgICAgICAgICAgICAgICAgICAgICAgICAgICAgICAgICAgICAgICAgICAgICAgICAgICAgICAgICAg ICAgICAgICAgICAgICAgICAgICAgICAgICAgICAgIC RoLB9HMSBeCYCkMTIuHIQvRIPmQYDpUMNnQPNhLGMqWOTcWZMsICIsKXFuXARnPAQgZQFrNFRaOTAmDW OpXZDrOJQbCFKySIHeYMGwBLLqIVMiCIEsCKDlDUJyEUPvFGEoEGKgVLVwAR3TOQTgSPGzCOOlUEDkNO AgICAgICAgICAgICAgICAgICAgICAgICAgICAgICAg YOWzGCBdPSTnXTRvLXQmNZJuYRZvGCMqQRIiAGHwOZPcKLGuDCVzWWFlHKUlNKKcNHLsEIGhCH0UVWBh ICAgICAgICAgICAgICAgICAgICAgICAgICAgICAgICAgICAgICAgICAgICAgICAgICAgICAgICAgICAg ICAgICAgICAgICAgICAgICAgICAgICAgICAgICAgIC JyLFSzOG6ZMO27pROvx5P0CGQiFW2ugoo/Zm3RSEjdinVozWPqME5TCtHtLE7skt9YGjCdXI6dam3FKR gULzJrT6L9mPVuKTKhRTNWNxFyV25yWCpxWj92MBqsBWIoKbUiNNp8Xw8CAzEiU2czMZGxPkK0TZMzEh CjEEomKP6Re3KecWRcGRk+Wl1UZZ7kt3OxAGdlKFLg AA4dfx3DRKzLAaOqN6GltqN4BYY6SERgHn0QUTIyBINvtZYyFpRzMPWLXlWiW2WymO26HAEXLu1+DQpl hiIfMoqBJbK7CTAwc7IjRFm7RG0TTMUiHSg2hKKpURWgB5Htl1KrEg86QATiOouqAN4prKUwAFHqhcAd zUD3GQnea6hqFR8UDPN6SYByHV5dWIAiYHNbJjZ9RH SMJN2JEINmHTNuaLKlKOOoUFRDPK3ZTInoQED7BtrtbbLjsYEjOIpwSR0MKQWlpeAeMkObLUAQYDe+Pg 7VOY3hc2AaRTttLlDiEQ8tqy8QYUsHTmOkH2N3iUMjE5Q8XMgdHe0GZFHkSKBnWdThEIMZYAflLX6PZC 6pnpO6TQ0MpHIeNQIeFPLguVBcQFy7B62azIWqRWhn DJ3ZKBW+Nacho+Rm2AMKEiXKVtARMuQoYtYECQEhPxM1JdX7JSj2XtI3QwCX25fUfwzbEjTJghAI2OAL9q QSKxRQGAPP5XzAPtrQ5lptRlIHJtUWIZKqDpY19ghBFlLSXyHZQ9UYXnYf4RIOXcZ0MklfAjpQetiuYw WHCtCHXLYS7NTTmgqrOvfXLbxAglBS13cUcpKF5RNo 2CJnKyYQ7pov5KzPCfKu7TCMRtLZ2XMCYxJEPmFJNwNEA4ZBKlGbKoXPorVVPqJDUlXBU1CVScRBGsXR 8SEtAfQDUdFpDxTzzeFFIyDWEstb6NZJIlBAPdGkUkGaToPSAzPRDqQCfxRWGmNUPpEIQ3UDOfQUSjBS 9LIpUzRNDbZXJ2PZdhCOWoCJEszq6OMFMqKWUhTLC4 PZGkMEUyRALvFQeyWKQaBDTcEeZ3OCHhPRXwER3XLfNrBYNqLMC6HJWzPHXjGCScuy8LVIEaBBDjJcJz TAEaTRKcWGMwTOiwWZCkBPBoIOo0BAYyISStPA9KWlRtCDTjWQNsQYMeHSUdUNUztu9MBTZiTHKqPLA8 GgEgTTDhJGFkQOdrBBIoUXN1OjLdIQOiCDNcMK7CAs HqQAOfLCkxBberTKOpUREqwd1NJCBzPWXjFoL9ClNfEEVkXDEwGNycFIAbURE1CUn6ITZtRVDmTJ4ERt AdVWFmFMx7BhBzFTUlTVOykp6ZZFHoJIMfWXV3FnCdVCZaUOQhVXzySDPxUME2NrC4ZPFvBYSjXI6VFq NsXBVoJZn7YBLeIVZxFWViqg4BCLZgMMJhGQn2YgAm VICzFBCyNEagVEGgZJWtEKkwLISoMBFdOR5MDnWhMUJnWcUrAJZmWIBsCFDdyl3XJDXeWYCpMSC2QbNf EMBbOTSrGXdzMPEfEADqNAL3YHSmBULgWV5AYhMwTGShQwZvMOSlAKXiACSmii8HJXEtDMGtYlF5BYPo MJEfWIGvFSe2kgFbhZRyURw1JQ0MW3MwiqCjXrlJPe 9Hh161PYR6EHUuFa1YM5diJx5yIWJaBRCMXz4KMBx6PiGqP2WbHFe1AjP2OHC8MFqbTax5RCSmMyQiCx VlNDM+NGpxUgRlZHEnVlq5ZpX5GlPnB3U3CoxkUwFhFGG6GIE7Hn3yEECPLu0+DQpzdGFydHhyZWYNCj LsYEo1YNxnZCABVy9P ID Date Data Source [id number] 05/13/2019 05:51:33 AM EDT [facility] Name Value Range Interpretation Code Description Data Milena rce(s) Supporting Document(s) Nursing Note [facility] OWNZAv9yExMXKeSy09/NHMmvLQMnc7YjPTvmBJq7WBavEWWcN9SbCPR9pZ5oQLA6AKzYWkVnSlFzBxI1 lbm [file] HdTCllOLv0AJ1VNYTMW6MVNw== ID Date Data Source [id number] 05/12/2019 09:37:56 PM EDT [facility] Name Value Range Interpretation Code Description Data Milena rce(s) Supporting Document(s) Nursing Note [facility] LCQALc1aIcRKKgAj18/QZNyjHWWnh6OnJZzjPLu8PYqcVKJoT9CzSBN2hG9tCSZ1JZjXFyFyCgKuBbJ8 lbm [file] AgICAgICAgICAgICAgICAgICAgICAgICAgICAgICAgICAgICAgICAgICAgICAgICAgICAgICAgICAgIC LzXKYmBCQvJDQkNIMoVDCvPF3ZOJCyOUXrGKMqLJExKQZlWPOqWTGbEJBnKIKuCETsROMpTGAnRWShAM AgICAgICAgICAgICAgICAgICAgICAgICAgICAgICAg YIQwGMQuBSNnXRQuBEGtASRpUNGhNEPpQCMvGF1QMYJyNNBzPJLbXDXcYUSjQSWcJPHoIHOrIGImGHSn ICAgICAgICAgICAgICAgICAgICAgICAgICAgICAgICAgICAgICAgICAgICAgICAgICAgICAgICAgICAg NQUsZOXzGJRcGF6HVKMdWGIzJNVmWMTzYSJiXURmOR AgICAgICAgICAgICAgICAgICAgICAgICAgICAgICAgICAgICAgICAgICAgICAgICAgICAgICAgICAgIC SoACGjAVIdKIWaUFGgDIOaKBJuMD8KUBExTLMpSSCeJPRbSKFyLSPqAZRiPMNjMUAaKZVeSBNaDJVgGM AgICAgICAgICAgICAgICAgICAgICAgICAgICAgICAg MJYyHOZjUMCjIAXqMCQgWCBbWZFpTOLrKIWiQACmAK4BGJVvWTHrLHNkZCSrPCVzQLJiICYsVQWrUMAr ICAgICAgICAgICAgICAgICAgICAgICAgICAgICAgICAgICAgICAgICAgICAgICAgICAgICAgICAgICAg BFTiLSEkGJUpVYBeOP4ASRQaPQHsLWIqPMGhEUGhYB AgICAgICAgICAgICAgICAgICAgICAgICAgICAgICAgICAgICAgICAgICAgICAgICAgICAgICAgICAgIC VfKMOmFARnADVwAACsFZEjEAYlRZWpMK6PTXEpBLYiYJEnOKXwHPTzFRAiIKPiQADhQSUwZMVrSVOqDS AgICAgICAgICAgICAgICAgICAgICAgICAgICAgICAg XVGvHHUwNYEnXFMzDRUmYUVnIVXvZQVpXVWeBHCxRIQtZK2JMNEuGRUdEZApWWBsEYTkMJPoNGVlHRQz ICAgICAgICAgICAgICAgICAgICAgICAgICAgICAgICAgICAgICAgICAgICAgICAgICAgICAgICAgICAg HQVeWFEqCYRfFFEeYEAhGF3QNORoXAMfPKTcOFDsXC AgICAgICAgICAgICAgICAgICAgICAgICAgICAgICAgICAgICAgICAgICAgICAgICAgICAgICAgICAgIC ImCBVtFZPpCBFkDIFlBJWxBMFfLZEzJVMoJQ5JHI61wJUwg6A6LQDmAO8qdrc/Sw5IVAddlrPgfDTdMA 0KHhVbDU4nvw4LQhTqUD0uwu0FZGwVGpGtI9Y5gNJo UAHpZBOGSvToW04gLGywUr54ZSzzYRTwHmKqBQb1Pn7FNhWiZ4wuHVZcDyQ5LGMvPwKvUVbhLZ1Xz8Uh dCAxDQo+Zb0LFF3ek9QiXMhbCgLcSW8nnt4HGLkOKlSmO9SygmR3ALCaWSPaYs8ORLUyPWIacXEuNjFw XHJTAyZfO6JhdF72JRMNZs7+DQplbmRvYmoNCjIzID Jti2EwYCy6AG4ACMKvESi6xECsBbVfs6ctTaYKx9ZgVMU8KIweDOIxHZLkXwPrlyzvP0BdKWRNJLK6AJ RsDJ2jTLIfNFO7CsI5BGVYVS3EYKFqDIAbtZElQCBcLJOWPE0VUKvhKVV3VqxrvoWebOKwVGwkNW4RZJ JlbnQgMjIgMCBSDQo+Eu9WQN4fn6XsYMmcTVPhPP5n es0ACVnEZcKiO2D7cVReB4G8VEmvVq6OIBVhUCTqWuMoTKIDQSprNJ5WXM4vnjM4IR0GzIKaDTJeTNEk fZNbKXb5E72icQZsNVmtNQ8KUKT+Nacho+Zf2EZCHbQRDhCEKyLhDiEHRJZaSiS7UbX8MCw7VyM0CsYH88 aCerzpFjCKtqRP2TRE9xNESyBIVMSO7DrFMieG0iet QhRnCuDVFZUqCtM90koGLaVRWeASVhSCRwCz0EXOYxL1XxikQbmDufveUpNKWdPHGAJU8PJWmnlrRfuV YwjHgiCB48zGrzKP0HYk5KJoRjFK0cxw3OyDOcWz0SDOMdMT5FCIDjCCEfAVHqYAM6FYRjZhDoJJviSV OhQNKqZSG5IXIiZZWwJC3OTgAeXRUdDWr0TJZjRJQo GSLjjp3IKFFsXHNdAGH8LENbBDLcXXBiOCfjNEZsIKRuDCQ0VCOoVINeVU5TSwRzZPHqQTYiLheoACXx UZYodn9LMBRoUOMiZGG4HqGxULKbGEEmSBkaVSMwKAHzMpDrFMZvDPLgBN3XSySeRHVnIOV7JBCnRPEk QUPfjv0BVRQcJQAtWdMbUnPdJARtPZNwBGzcEGUrSF EhIDt2TGRfDITzJC7PIxXhWTHrPII2RPUxQRZhPGGmyn4RMGGxHBWoHdl5OGMkBKFjSIXxAIaeZFFpMH P7ApPnUJQuVFDuVJ9AYpUtVUOmACZ3XhhnSGHaTNFwxg2CBQJtSYSkPiseAHYnLVArJNKxOMjjRDCaSL B2UCs8FFCpBDMaBI1JUsJdNIMaCXkeFyKsNEBmYMGp qq5LOMPsTGViGKH7VzQoHTCcDHEuPBqbLXTdLHY6ZsFnKKCoNKVyPL8VVhRsAJQuNOr3LiLtGADbIYMj qf4GZSRmCFBrVIk0DUUwJIPnHPBaTFuqOUWbJIWwNft0HRDrBRUgMT1FBlKyRINvKbS6KJidJKOnZWSs ff1GLBWjFWAuTLI7DuTqEKJhNXIoXHi6eiFcbLVwZS f9YM9SG1TskjXtWlVIGw6Cg648TFZ5IBHcBg8QB2hsEx0vQTEeIAOGAq9GSYv0EqHvEUGfAYLiZCX7JH d5MSh0YfS8KbahSKSfPzNbQPP+FCo6FvB8IHH9KZQ1RUX7DJt5DRRjVjRqGZD8DUC6BbZpLX7aLRZSMg 4+EErmiZNdiBhlMQIXGlKxSGIdMQmqKQHCNo2U ID Date Data Source [id number] 05/12/2019 08:54:18 PM EDT [facility] Name Value Range Interpretation Code Description Data Milena rce(s) Supporting Document(s) Nursing Note [facility] WFEDRp9gJlCEUqEk44/UBRefQTXqx4BrCUdkOFm7YWxsJSPzF1IkJLD7cV9aEKO4BWnTMqInKjWpWqA5 lbm [file] SpSE9HEEs= ID Date Data Source [id number] 05/12/2019 03:40:42 PM EDT [facility] Name Value Range Interpretation Code Description Data Milena rce(s) Supporting Document(s) Care Plan [facility] YDZTNp2iUoREWqYw63/WMSnoPOMxz6DbNRahXMv5XBbhMHIfU4NjUMM7vV9uHHO2MPlTOhZaYvEoJfR9 lbm [file] IWDiZjTbFP8LNz3EAmP7SMJ2rHHrId5VIcQ0UUNXHhWiNL7VFOy= ID Date Data Source [id number] 05/12/2019 03:39:06 PM EDT [facility] Name Value Range Interpretation Code Description Data Milena rce(s) Supporting Document(s) Nursing Note [facility] PKNTSu2oLpRUQlEw19/MZRckBXPmb5BwWNzaXYg0UXbgDFEbE5MnICB5zM5tJAY0BVmBTnPyBcEiNeN5 lbm [file] AgICAgICAgICAgICAgICAgICAgICAgICAgICAgICAg LJOpVOUhOSJnJCZuFFLrTSOcBY1RYCBvVYTgHJEiXDVwBCClOHQkTHZgGVNvAVEqSKBcONVlHBWiTJKp ICAgICAgICAgICAgICAgICAgICAgICAgICAgICAgICAgICAgICAgICAgICAgICAgICAgICAgICAgICAg PL4CJTTmXAOuFQLaRLVxGQNgWLRzQHEzYAImCPOuUG AgICAgICAgICAgICAgICAgICAgICAgICAgICAgICAgICAgICAgICAgICAgICAgICAgICAgICAgICAgIC NkEOFiCMTjOKBmLT4NHGRgQBTyITPkOHIyWAPzSTDmACExNHGgTMYfNUTmVNAqLODxRQFiCCMvCKSxPK AgICAgICAgICAgICAgICAgICAgICAgICAgICAgICAg QYAqHCEdWTUzEGLfBUSuINDxHAWrEB4LORNxZTAdZEIbQQYeTIOrMYMcZVGmPOHbAKPoURLhOASiPNQb ICAgICAgICAgICAgICAgICAgICAgICAgICAgICAgICAgICAgICAgICAgICAgICAgICAgICAgICAgICAg UUUtHM2DZLAwAEJvTAGmMYDbUXSpFJLxOIUaZEJsWG AgICAgICAgICAgICAgICAgICAgICAgICAgICAgICAgICAgICAgICAgICAgICAgICAgICAgICAgICAgIC BfJERhEHSuPGWyADQkTD3HANNgXJUhILVvPVNxMIUkKEBcKYGxCLSjGELmHVNuFVCoLZZlFOYyZNEtOT AgICAgICAgICAgICAgICAgICAgICAgICAgICAgICAg XRZbJETxKPCiYYGwNALkMWFxGVFfOJJgDN1LMLPvPFWzBQMqCTHbAOHeWDYgSXVsHKJzONJwUIZrJZUx ICAgICAgICAgICAgICAgICAgICAgICAgICAgICAgICAgICAgICAgICAgICAgICAgICAgICAgICAgICAg BPZtGXZzLJ8JKHNeLLWjJYWwWOTxPWQuVVGxFTYwMR AgICAgICAgICAgICAgICAgICAgICAgICAgICAgICAgICAgICAgICAgICAgICAgICAgICAgICAgICAgIC LtQCSgBZOjBSHyDEAtDQCoEP5ODANgHNHkGGFdGUGuPJTuLTNzNBBiKFOwUARjUWUyFTRaCWNuCBBvGB AgICAgICAgICAgICAgICAgICAgICAgICAgICAgICAg GWVtMETcYMElLAWmHUNzQGHbHINmXZQyHWRmNY7XVE50mIOcm9V7UVYjAM3cwps/Dn3XRHkkqyYhtISh DT7YQgLcIO2zim8CDfGjKV3jfm9PTToCZfSoN8H3aUAlWAGkNNLSQbCqQ65hZSvoSd80ARnvYWWtTtRc EBr3Mb9DAiWeR4qlMLLoHiA5AUWsIrKhRTmzBG7Xj8 VudCAxDQo+Ke1YJN0pv0JoYZlzYiMjNB5jov3ILNiRTdNaO6VvbqC5DEJmYEAyIs9LTWGoZJHfhTZyEm GkYVFFMsYzU8UciO70UGGSXt7+FKndmxVrCcvSNjSvRJXow7EdWLe8WI2LPFFyPKv8nTKtKlUjf3spCg WUd2MjHSU7FAz6y87hXHSIxV16UHNxUFUQDYQ7GRSw TQ9sAPYzTKOeUxQ7BGEBCZ2OJNVnPBFucLFgITTfTAIGIL0BZUswJFQ9SnswdoNnpFZoLSgnZH9GJJAe bnQgMjIgMCBSDQo+Jy0YVT9op0AiWAuwKJRuFO5ieo2UBNvSLiKyY7H0xTYnR2Z3JPpvHr8VYRUoJBGs XwMsDYZXLKilMZ6SBM5vvmG0BY9KoQNhUQFzQYKjlZ WlHYd2G62gxCCfVBorGL0EXGP+Nacho+Rq9IXXTaASIyKLLzIcUoBZBXWlBqE1JcD8WVg1XcK4XoPO61pG nemlWjGVbiIH1ZDK4fVFJqMHWUYJ7TmAMpnE4vjcFuFtYpABYCJaNmK37abGRmUEJuXVOlDLDvFj8GCT KjI6ViuyUcfBefqrFjYLGoNESGUM8GGYbcbgHwdZBw zVnnVM57qKlaWJ2DHi3NHkYvKD2ukw7ZdYXkUv3HDHYcFH0WPJSeJKWbPHZgTFC3SIAlSaTwSVhlUPSh XKVbUEM0JJObGGMjAL0KKgUfYMNqJLl2AGDaBROkYVEzzq6CIYMfHZSbEZU9FfRcMBGuSITlTLlhOYJc RVUrYFA5BLLrGXOtPZ0DVaKeEBMhRQE8WnCvPNQwTO Gsen4SGGTpTFKjOWA3QBEeVVScWONfFYyrCGZvLEWcWoE4MQMtYRAxCM0IMfYjVKVgSCA1EghfGMJcPB Numb4HWVZmWUVpGtItDtZbBXOuBKRuVGomFHSxKVNsQKnnPIPtNEZqKF3WRkXyTAMnVRImSjikQMFgTE Nnqe5ENWVbLGVnETW1QHMwXEHzNYQbFGwuQMIvOVN0 GsA7PTJiTVFsRG4ACeBrLWAkAIevRqGxRSAeFDSnyi7EMHLhNDRmRaDqTPYcYLMkYCUiWBebUYOkZTK7 CXj8SZIkTMQnVF9TMzPyGCAiFTr4NnZlBXMcCGIynj8OGJFrVQFkZHI0AyUnCPQkMPBnMIinNDGgNAM9 LdI5YZRpLJYpAV8SUgCkMMFrOHu1FiBeRVEbVYCfmh 1JKXVjLARyHBJsXlBvQGPjYSTjLEzqDKDaRZGdPkz8DUEvWTWnVW8WKrHuQZTaSoH5ZDDpZUDnQWUmuj 1PRCPyZSScABs8IFRdYIJmJTQxNCb6wqZdfQKvCMq4ZK8FF8MabuEcWqEQBs1Nc800EIW2LUScEy0CD0 ziEf2cGWPeBPYMOx4NDKb3MpR7JBSwM4XcLcP7ELKj FaWsJ6YvVBViVeK1SwA8MKp+UTggBHqlERSgEkHzHhV5VcW9PMK8FYBaE0FmHAa0WEh3AN3hXQFSXu0+ HBwplXFdiJdlIETUJuUqBdO0HZpnCAIIBv4V ID Date Data Source [id number] 05/12/2019 02:20:15 PM EDT [facility] Name Value Range Interpretation Code Description Data Milena rce(s) Supporting Document(s) Treatment Plan [facility] BTZKXr0tQvNDOnYt16/AZBqeKVSdv9PlPEpvIIi3KNzzDJTtN6ZlHBK9tF2jCCK8XObNTxMeZrLqXiB5 lbm [file] JM7NTsw376z/5Iu+SEAFOOD PROCESSOR+qWfZrjaifUiG4xiy6+8hjL3cJj3rqa8n6BzSZf9yyWYpsL4+tx86WI22MXj0D [file] tfVKM5FjvvAzLhGQ8GPz4FIsZ3MJC2qPBpAf9RGsF6RBURNeWbPH6EEWp= ID Date Data Source [id number] 05/12/2019 05:47:05 AM EDT [facility] Name Value Range Interpretation Code Description Data Milena rce(s) Supporting Document(s) Nursing Note [facility] RXMMMi6fZlQNNkDb72/XYLpwDQTez4ItPXpxGTw2WFprZNYeL1LdKFQ1iX6vNIS8QKoEDnBaHrGhTbM3 lbm SnRntCGmBhHGVvKyjCCcUuXDydVtphbGKvAQ1PhLK2WQPkH88lZBCwPLJbG1BuPRt4TR3+FIvnFSH1db YspR4LKABAZQ8U5vINdr+0/+Ymg4Ml10vvU69NqKfBUq8W0mcnx2RW6TOjXJdA+O/yoT6xK3CREGFWTq AUgsbj8nhjSyHp/r9MWqBKWKs+o13kKQL5uLblVTyC qi7P6fPFCqkHIJKCur4F5CFDbgjNubeSMhrHI+jYYtXdPkU91ksWbX2ep5wzQttVM1VfH/O8FgCrSX4B tJoxfOWKHjhN1ATFO4fjD83HWHEMvCncHgoeKABLePMMNzlIzoPORTcAOTJIDeGyxhIvASv6eACVSgKH [file] AgICAgICAgICAgICAgICAgICAgICAgICAgICAgICAgICAgICAgICAgICAgICAgICAgICAgICAgICAgIC AgICAgICAgICAgICAgICAgICAgICAgICAgICAgICAgICAgICANCiAgICAgICAgICAgICAgICAgICAgIC AgICAgICAgICAgICAgICAgICAgICAgICAgICAgICAg ICAgICAgICAgICAgICAgICAgICAgICAgICAgICAgICAgICAgICAgICAgICAgICANCiAgICAgICAgICAg ICAgICAgICAgICAgICAgICAgICAgICAgICAgICAgICAgICAgICAgICAgICAgICAgICAgICAgICAgICAg ICAgICAgICAgICAgICAgICAgICAgICAgICAgICANCi AgICAgICAgICAgICAgICAgICAgICAgICAgICAgICAgICAgICAgICAgICAgICAgICAgICAgICAgICAgIC AgICAgICAgICAgICAgICAgICAgICAgICAgICAgICAgICAgICAgICANCiAgICAgICAgICAgICAgICAgIC AgICAgICAgICAgICAgICAgICAgICAgICAgICAgICAg ICAgICAgICAgICAgICAgICAgICAgICAgICAgICAgICAgICAgICAgICAgICAgICAgICANCiAgICAgICAg ICAgICAgICAgICAgICAgICAgICAgICAgICAgICAgICAgICAgICAgICAgICAgICAgICAgICAgICAgICAg ICAgICAgICAgICAgICAgICAgICAgICAgICAgICAgIC ANCiAgICAgICAgICAgICAgICAgICAgICAgICAgICAgICAgICAgICAgICAgICAgICAgICAgICAgICAgIC AgICAgICAgICAgICAgICAgICAgICAgICAgICAgICAgICAgICAgICAgICANCiAgICAgICAgICAgICAgIC AgICAgICAgICAgICAgICAgICAgICAgICAgICAgICAg ICAgICAgICAgICAgICAgICAgICAgICAgICAgICAgICAgICAgICAgICAgICAgICAgICAgICANCiAgICAg ICAgICAgICAgICAgICAgICAgICAgICAgICAgICAgICAgICAgICAgICAgICAgICAgICAgICAgICAgICAg ICAgICAgICAgICAgICAgICAgICAgICAgICAgICAgIC AgICANCiAgICAgICAgICAgICAgICAgICAgICAgICAgICAgICAgICAgICAgICAgICAgICAgICAgICAgIC AgICAgICAgICAgICAgICAgICAgICAgICAgICAgICAgICAgICAgICAgICAgICANCjw/kKNoT3pxlKEndq E2U5gqZj0FTy7LDZ2fc4UrRQJvEDntckZeCiiVFqCu RGCpDtwMYyo0EGekQM6JyWLuM4EbH2CoPRnbUY6DOJLoTOPueSVeFGCaADNsAaM9KQMsTAfoJX3JtICv TCegGBZrEIPvKK0DUVPrT807wcRrXN3XEs1NLpZzCL3zae4QEtHkOHYkPjoBWcg6SQmqAS7RySMrrCGq ZePiAUCUVdRwA7vyh9PwVrEzGZHHYBvbHS8Gx6GmgI AxDQo+Ev7QRM1ug7SyRTxvHnRdSZ7euf0ZMFkGIcAtN5NdzZexTL80xdMszhtfJm28YLTgnPYWTV2gxv IClM9wSFgcHy6eXSMtXx47RbXrBbMfTZY6BNSwSI8wWLdaZS2PNFH7FNwqEDYdXIZwJ1zMGcAjUKpuEV MsmNpwKX9PKfFkT7JpwlKsjVRgBzKuDDMOBz3+DQpl ltBeBwnVVqW2CJMme0MjJPt8MN9NSMEpSCeyYH1OLYUneY3yEQuwHA8EBiZnLXOwLXOJRbGwP03jaTVw XIq4U4ZkBiKfBOJwBvhfGSKrEFhmXlWsISPwNdYnIFxvRO9+ID4+YNuyVD3OVUyrekVmUVOwTo5TBKBm RYWrYB4vFKRyRKAeF7D1rSzkMGLIAfZqT6ejjeuiHM 4aEKUwZ790aAulauPrAHEoHOQgDu7PVGRxKFO0UFWrtXAcXyYfHERHPBncUD9AbSHwXLP7nW9wFZwgRF JlJNPjI1rNNzBryUteZZ15jVvcfzCaxCSvXTo+Rd0HMS8kv2VwVRs0ijFxNNukXOB5FFoeWRRlEDNyUD YuONN5HCW7EOVKRpLtVYDwRDYrYEhwRWPkUMAtgy1R HUSoPSLaHWW3YOJhCOSwKTTtFLndCWTgCGVcKhk9CGYmOFKqVP1TCvQzJLGaYNBcUBugWLIxYXNveh1B KAVzAFUfGBX0MyZeVKXxBODfBBlvHYQdFTOhNwFhGHMkAOHgIP3NVoKqDRNfSNVuKOfzTRJuMTLnpo1T HTHdBWJqRzC9TWFwTZMnNWYwFVhdGAUkMMQzCdK7JM YnYHStIE1PTlZnKQEzOQT5IYSkPKDzNNZntr3TPKWdSTAoCorzRZToAHSwIWNbHPzxXMIaEELrWTfuAF KgDEZuIW9BQmDzMQWvIETmQxCwGPHoJJWkuc0NMTWgBVUpOwL3DFSnZRHsVBBcYTwhZPZdKKY8RQV3IR KtZXBtGA2XAdPyWFJoEPmeBUruBVRcKRKntk5GATSb UMPbXoK9FgYrNEMkMLScGRcoVFFbFKI3JJz0WQVbYQLdLR0YRmQrBERaYLyuOuRoDFYdGPSadw8SWEWp CWNyVSY4KkYvZRZySQWkVBbrIGKpYQG6LHD9AWLlAVDvLN1QQqMiXLErVaZvUIcfPXYmUOTaxt3MOEYt VIThEJG4ETMjSYGuLUAfQEakWBLbVVNdTgHiRMMpVC PjNZ0OFmQjAYssZSDQCwb7ZNdqM8a1HBOdZV4SA0Uex0AxFjIhFKLSMQglEW4eggOxPFYeYc8PG7hLQt v4TnCtVXHhADMcIZJ5NXBnOROoMHAtDJF7HpJaQKArUB3wATn7ApQ9HEWeXSDpHDg7OWY2FFG8ULV4Rv h6L8VxVNR4TsIvRM1SDp3XSbQ3JRR3gJAeIh5UFvH4ZZWFJzZiRA2GUGt= ID Date Data Source [id number] 05/12/2019 12:32:51 AM EST [facility] Name Value Range Interpretation Code Description Data Milena rce(s) Supporting Document(s) Nursing Note [facility] GUOVEt4jTdLQMjEj28/SDXazKEQpf4SkLWcpYKg1SVsmCHRaK2XiAER3wI7kNTI4UJaQNvWkXgVqNjZ9 lbm WeNrkGBiJxLBKnMewJGbNwTVcvXtglrDGzIX7YbRG6PXSvM56lLGYiIUTqT7JnOMo9OQ6+BGnrMSX5xy HknU3SXTCPSUdO3JHBsggZf+tUeGRxx9OrsKcQ9OUcTqMWDf6eSJPCitcF6t1V/Taz+2NOlYGThLA8jIU [file] obstetrics [file] WV5SYNLZB1UTXx== ID Date Data Source [id number] 05/11/2019 02:30:27 PM EST [facility] Name Value Range Interpretation Code Description Data Milena rce(s) Supporting Document(s) Nursing Note [facility] PHPKTd1xXsEMDrDa15/WWSunIXPse7PdIFxvFYp1FHgiTFHvL1IjCXJ6gZ0hAAE2PReMInGdXmLxCsB0 lbm [file] ZuPTQeIyEqUZ6TTm1YEnE4WOU9sMTaUe5ZHtU8ZROMZhJbPE1IQEn= ID Date Data Source [id number] 05/11/2019 02:28:17 PM EST [facility] Name Value Range Interpretation Code Description Data Milena rce(s) Supporting Document(s) Care Plan [facility] RSYHXx3rYsGKKwGp38/KJUcsHJQtd2ExGJcdHPy4GMsoEQBfR9HxQQH3qC3qAJM4PFmTLdJhEvTuPjF5 lbm [file] vyDDncWNDjV7KaPoP6ESX2PGZ+NO6xEUx+Nv2Dm7KmooM1lvMwOHgdDnI8TJ6KNITCN1OJHs== ID Date Data Source [id number] 05/11/2019 05:37:55 AM EST [facility] Name Value Range Interpretation Code Description Data Milena rce(s) Supporting Document(s) Nursing Note [facility] COOFLp9pKkTXAfAa13/BFZpmARHyo6CtQXoiQQy1SEyjOOCoX9IoBUA4oA8fNXZ9UOeXGzSaYgOlAqE6 lbm [file] ID Date Data Source [id number] 05/11/2019 03:15:57 AM EST [facility] Name Value Range Interpretation Code Description Data Milena rce(s) Supporting Document(s) Care Plan [facility] CTOUJk9yAfBOXhUb22/ENUsyQAWuj0RkGDkgAUq3MHctHAJsE2BjNIL1dF4jYTW4PVoHNeZfVqKtXqC3 lbm [file] AgICAgICAgICAgICAgICAgICAgICAgICAgICAgICAg ICAgICAgICAgICAgICAgICAgICAgICAgICAgICAgICAgDQogICAgICAgICAgICAgICAgICAgICAgICAg ICAgICAgICAgICAgICAgICAgICAgICAgICAgICAgICAgICAgICAgICAgICAgICAgICAgICAgICAgICAg ICAgICAgICAgICAgICAgDQogICAgICAgICAgICAgIC AgICAgICAgICAgICAgICAgICAgICAgICAgICAgICAgICAgICAgICAgICAgICAgICAgICAgICAgICAgIC AgICAgICAgICAgICAgICAgICAgICAgICAgDQogICAgICAgICAgICAgICAgICAgICAgICAgICAgICAgIC AgICAgICAgICAgICAgICAgICAgICAgICAgICAgICAg ICAgICAgICAgICAgICAgICAgICAgICAgICAgICAgICAgICAgDQogICAgICAgICAgICAgICAgICAgICAg ICAgICAgICAgICAgICAgICAgICAgICAgICAgICAgICAgICAgICAgICAgICAgICAgICAgICAgICAgICAg ICAgICAgICAgICAgICAgICAgDQogICAgICAgICAgIC AgICAgICAgICAgICAgICAgICAgICAgICAgICAgICAgICAgICAgICAgICAgICAgICAgICAgICAgICAgIC AgICAgICAgICAgICAgICAgICAgICAgICAgICAgDQogICAgICAgICAgICAgICAgICAgICAgICAgICAgIC AgICAgICAgICAgICAgICAgICAgICAgICAgICAgICAg ICAgICAgICAgICAgICAgICAgICAgICAgICAgICAgICAgICAgICAgDQogICAgICAgICAgICAgICAgICAg ICAgICAgICAgICAgICAgICAgICAgICAgICAgICAgICAgICAgICAgICAgICAgICAgICAgICAgICAgICAg ICAgICAgICAgICAgICAgICAgICAgDQogICAgICAgIC AgICAgICAgICAgICAgICAgICAgICAgICAgICAgICAgICAgICAgICAgICAgICAgICAgICAgICAgICAgIC AgICAgICAgICAgICAgICAgICAgICAgICAgICAgICAgDQogICAgICAgICAgICAgICAgICAgICAgICAgIC AgICAgICAgICAgICAgICAgICAgICAgICAgICAgICAg GYUjEWJhDLClQBImEZVlJCUyOLYqHEJeWGKeOHTqKGSmADMgKPWiMGTgAFr6E2mvHMTxCPDdCY1fRIe4 Jz8+WXiIUkLvQNT9alHvlA4EJJ3ne7FyGGqvFRInb9AoKBe3PU8OLDSbZNbrAJ5VGUmdis6QZJUlKWDm hUNJl5siIsRsUHT5QRJaJoqpMB6GYULeN7odsqHxUV HbFQVVYS2LSpGjJ8KzhD08IJHVZk8+HVdvhfXqZapOOqCnDSYtx6LnVLm2TI8XPZOiUymqn3UuCiLoYO KUGBxzTO1HAEJ0ZXSjGQQtGb6SXTSbI035tfEbDJ4BIf7CKuSeNG0yve4ZJzLfOAUuXmgLWyc5DFhqQV 6OsAFuLQxJVVHuIQKbSQ4vMfapTeXrrjukBJkdNIsu UQVROIN7GWMbTc4vDKKpDRJxQrD4GVDAMM9QGVCrMWAhnJEtBUVwPTXSZP5XWRkrYPL9NwwfifIpsZOy YPrjMC2TCINboiUbFhYoGBMEDFt+Kx4PJG3io0ZzCQodHIIxXV0uls1OOHpBIeAbZ3X4uYRzZ3U9WChn Ee1WHKIiXXQhQqTaJQVLGGniZZ7HEH1fjuW5QZ2HhV FiXEDvPPRueIXmKAm3A85mfWKzJNunKO7XLXR+Nacho+Ha1NOUAoPFDxVRXbMcFkVTYPLdElN0EhO2YQc2 TrG3HtQH45tExkjfVtARfaQA6DDE1dTVKxRNVUZL4NcIEknL1tajBdAgVqQQYJPrHnL65ipAWbUUNqWE VsLBOdOy4JQSZiI2SlaoQzqRzyryFtJXHdVYRWPP0W FIjylfBzhVLmiZdhRY08lBurJI6FMh2JGlWcKF9rwp1GlCGnYj0DSEWrYZ0YMJEgXHFyVYKnAYZ8QTMf JrVnQNikQNVmFDFaODR3MOYdHKFvQL8BNwCpNNZpGMg1LWCkWOLrZCHamr3SILNdGVJpUJH1FpDzWQJb KQWaICksUCOxOEFtLCX5ZPOtLCCzTZ8JYwQbMOHqRM VgNGOjSYJaNAMsnn0JKIJcKYBwDFF2PUXgWPLrKTVcINglXMSfHSBmMqU1QUQlYUZnGW7OHjIsUDNzHU Z5HHzsQSCaUUYvpe2WPPTsGPWpZvbgUfPgKESpQFLrGKrwCYMmFWOgXgujYWXfDDNrQG3LZnDuPZNeOD O8LYhiPLMcRGYbyd1DSHVxIYUaQHE1XCGqDEZsLHHo KLlhAZQhTWX0HQGgTLTkFTSfRH8EAeRqXQSbHNE4PuUeZVCyUUKrax8RLRHxVDIsOal1CYUjYQMwIUNz CApaHMIiSUZ5BZs5HBIpOAFmHY3FGnIjRODpUEmoLuKkHTFyPDXfos6TJJSyYZVtHFW5PxHfMCCuYOKq XIfeGBItWAS3PUG5CFSkZQFtIL5MTrMqADTtAUi7Uz WvKJYcBUPaun6BRMVfJGAgYRK2UcZlSKJbYUIxMZkvYVNdVHUpDAs4FLVuNQChNA8GOmYdEFIfPxR6PV XhZFAxEBGyfp4ZYBYpQJBeOCT1NnLcAZOrUNEhFXw7cqSvtYXzZNm3AN8WP7BcxhPtWqSSCx2Bd754XT H1AQGjTd2HJ3kcVw6fZTJaNPINXt5WYIb2NHn7HUUu ZpJ6QeYePUA4WxT8AwJwQcEgTmxaDyUpLLO+HUx4PCH3ZjYyIlo6XMClYlv6RHJkFqR7T4Y3RwPlAXT3 Eu8aPGHJIs3+KWfdaLYdfPznHFWJThEjYRTuGQecZOEUJy7I ID Date Data Source [id number] 05/11/2019 12:55:38 AM EST [facility] Name Value Range Interpretation Code Description Data Milena rce(s) Supporting Document(s) Nursing Note [facility] HSIXCt9bXcBBWpLs70/CKPnuVXSkz3HsKAsdQEn4MDptQXLnD8JxGER8xJ3iKQC6TMwCCvLjYrUiPbX1 lbm [file] AgICAgICAgICAgICAgICAgICAgICAgICAgICAgICAgICAgICAgICAgICAgICAgICAgICAgICAgICAgIC AgICAgICAgICAgICAgICAgICAgDQogICAgICAgICAg ICAgICAgICAgICAgICAgICAgICAgICAgICAgICAgICAgICAgICAgICAgICAgICAgICAgICAgICAgICAg ICAgICAgICAgICAgICAgICAgICAgICAgICAgICAgDQogICAgICAgICAgICAgICAgICAgICAgICAgICAg ICAgICAgICAgICAgICAgICAgICAgICAgICAgICAgIC AgICAgICAgICAgICAgICAgICAgICAgICAgICAgICAgICAgICAgICAgDQogICAgICAgICAgICAgICAgIC AgICAgICAgICAgICAgICAgICAgICAgICAgICAgICAgICAgICAgICAgICAgICAgICAgICAgICAgICAgIC AgICAgICAgICAgICAgICAgICAgICAgDQogICAgICAg ICAgICAgICAgICAgICAgICAgICAgICAgICAgICAgICAgICAgICAgICAgICAgICAgICAgICAgICAgICAg ICAgICAgICAgICAgICAgICAgICAgICAgICAgICAgICAgDQogICAgICAgICAgICAgICAgICAgICAgICAg ICAgICAgICAgICAgICAgICAgICAgICAgICAgICAgIC AgICAgICAgICAgICAgICAgICAgICAgICAgICAgICAgICAgICAgICAgICAgDQogICAgICAgICAgICAgIC AgICAgICAgICAgICAgICAgICAgICAgICAgICAgICAgICAgICAgICAgICAgICAgICAgICAgICAgICAgIC AgICAgICAgICAgICAgICAgICAgICAgICAgDQogICAg ICAgICAgICAgICAgICAgICAgICAgICAgICAgICAgICAgICAgICAgICAgICAgICAgICAgICAgICAgICAg ICAgICAgICAgICAgICAgICAgICAgICAgICAgICAgICAgICAgDQogICAgICAgICAgICAgICAgICAgICAg ICAgICAgICAgICAgICAgICAgICAgICAgICAgICAgIC AgICAgICAgICAgICAgICAgICAgICAgICAgICAgICAgICAgICAgICAgICAgICAgDQogICAgICAgICAgIC AgICAgICAgICAgICAgICAgICAgICAgICAgICAgICAgICAgICAgICAgICAgICAgICAgICAgICAgICAgIC AgICAgICAgICAgICAgICAgICAgICAgICAgICAgDQo8 M1olUYFzNEUdYT3uWAx2Nz3+DToBLmPvWBQ3upNtzV9FQY6da4AkVKrePKXvh6ZaVMs2WN3UEMPpAHqb TK3CTJihai7QFNPdOTYwiUBCp8ukKkWdCAH8DMLgZohyLB7NLVGgE8qoynRhCTOuHNPVWN6FFsSbI3Ie kZ18GREUFn9+ASaqgxZrPuiQPpKcMXBqc1QeVOg9AT 6BBEQuCpuux3LxTiLmZRDEXCmhOA0QPVW9IBKfTVPtCh8YWMBwO297akMuNR7QQo5RZeVxQB5kxd7SSu JjKXJqYjvEDxn2VRylZU5AwADdAZxGoHEkvW0pQM7ezNLaFrkfAnHpTVQfCcxqz8PmYVSTXEN7EKPzGc 7sTNEdPAItQbU4QMVVNK0ASLAdOBPcrMCcRNSvZPPE BV7KMVryDTM3BdsaqmVjvIMuLKqxWC4TVNIglmTgIrQnNKJUXYr+Dv1MVA1et0XjUQlkDBVmGZ0vfo6Y HKfEKlNzT7H6dPQsC7W7MTsiOf2LQPPiTTRfNlOrECBGPXilJE1AUZ5tqmX1NP4WvRCnFAVrDQEguDVq CZf1T20mpMGjCZaiOX1ZHGE+Nacho+Eq3FTVBeAZIiHO QqNoCdXHAAHpHwO3BxG6XTt8VxA9ErDS23vQaluzAyOUrbHA0MOL8nTMSwZVRFRK4FlMKbyF5xfgFbRc SvGSCBRnEuR50mhTQbKMXhAASqFJOvLy6WPCBwF9UlmiZppCmwikCbCEDeLPVSMZ3SZJhednWaiSKcqZ fzMV86dRwePY5XDg8ODgWrNK2hdt0PjKVzLq8ULBTu NN5OVMHsKWAeSUJuAOI2TPOrUiTlNYzoYAZnDFDlYNT1CJHxWJIpLW8BJlTsKRYmUSg9CKpqVNOmPWHv ws3UYMDfLGOfADD8JoUyXPFdTQVeCQwdDICtVURvAMC9HXTcMJJeQH1EEsBrALUqTXStFSJiFUMuRCCn fb8HTLIzAXIvMAH5YCAvRYVsXEOoLJnyBABzQXCnNj ZzYKVbWCJgEB0VTcNrPQReBEA7UWPoLCYmXREcvj0CYANfDDKwFlC8LBFzKOPcVNTeUBbwRLEgGVNxDz V3YGWjURAsPG5LRgAnUEMlZZX2KSTxOFFyXSDqew4VXEXcIISvAVGbErYzIPMxXIGqQLubBWQlGPA4Xu r3KIXqVFImNK4EUnBeGPBoPDV1SBHnNIHfPMMttm6I QJOaSLIzWntyXNGgBYAgLLScYSvyWRKaBPO0JLYpYNJrUZXlIB2FJmVnTQIlMZbcJNHpPAGhWJFwhh1E SNUlNWTnCGDhQXGhUOBlOEQhDHyfLWOyFXU9WADbHVSqJEIvDL8NFeYkQPWsTWy8VNNqFHEtEXSpqf7L MDAwMDAxOTAwMiAwMDAwMCBuDQowMDAwMDIwNDQwID EnTUKoMM0OAhMyCXTnLqV4YYPeRBZbYSJyyu1XPJFfFOFiNZR0TYWhFWVsYVYxEPi3pjFpwPSvGBx8HI 3FL1SrmbNwJkPSNb7Ye472IWS3CERlXm7MB0amHi5hNCEhMZDHRj4RSFz7HNOxEMRuGWC6PML6WDP9CL Q8NnKqEtRnWqGxZlTpEFW+PQb8IrNkAqH5CHs8PwS0 USi0KSxvUXD3NnYsHZP1StB9Cb4eMVCUFz8+XSghzLUyyRjjMGGTEnLiAXy8LViiYBXKSi0A ID Date Data Source [id number] 05/10/2019 04:23:58 PM EST [facility] Name Value Range Interpretation Code Description Data Milena rce(s) Supporting Document(s) Nursing Note [facility] NNQBBv2rZnUXTgXi21/CFPweQGWpa8XiIRspTDb9BPblLFHfM1HdMFJ2aT7kHCW4UAzQDtEiQnRhFdD3 lbm [file] ETOpCSSqKIm1EVYbIYUbWXTxPgTwGNVtLZO6BhCo XZ0FEb6HNiZ4GSJ0tQLuMr3GOdGvXfYELlEaLG2EREu= ID Date Data Source [id number] 05/10/2019 02:25:08 PM EST [facility] Name Value Range Interpretation Code Description Data Milena rce(s) Supporting Document(s) Progress Notes [facility] WXTFVz1rFfQFMwBo41/TZOsaXHEnt3GkXIozROd4UZuuPTFtI2ZeFUE8mE7rUTO4MSnZYiSpGuMjYiA0 lbm [file] NrC/4fa0jtzrr8DCENO+347FvE+GRnUjf8OI5vfWtv4dF1NXSojunQvXyplNWsQPeSxxSVe/EtR5z/rodríguez [file] ICAgICAgICAgICAgICAgICAgICAgICAgICAgICAgIC AgICAgICAgICAgICAgICAgICAgICAgICAgICAgICAgDQogICAgICAgICAgICAgICAgICAgICAgICAgIC AgICAgICAgICAgICAgICAgICAgICAgICAgICAgICAgICAgICAgICAgICAgICAgICAgICAgICAgICAgIC AgICAgICAgICAgICAgDQogICAgICAgICAgICAgICAg ICAgICAgICAgICAgICAgICAgICAgICAgICAgICAgICAgICAgICAgICAgICAgICAgICAgICAgICAgICAg ICAgICAgICAgICAgICAgICAgICAgICAgDQogICAgICAgICAgICAgICAgICAgICAgICAgICAgICAgICAg ICAgICAgICAgICAgICAgICAgICAgICAgICAgICAgIC AgICAgICAgICAgICAgICAgICAgICAgICAgICAgICAgICAgDQogICAgICAgICAgICAgICAgICAgICAgIC AgICAgICAgICAgICAgICAgICAgICAgICAgICAgICAgICAgICAgICAgICAgICAgICAgICAgICAgICAgIC AgICAgICAgICAgICAgICAgDQogICAgICAgICAgICAg ICAgICAgICAgICAgICAgICAgICAgICAgICAgICAgICAgICAgICAgICAgICAgICAgICAgICAgICAgICAg ICAgICAgICAgICAgICAgICAgICAgICAgICAgDQogICAgICAgICAgICAgICAgICAgICAgICAgICAgICAg ICAgICAgICAgICAgICAgICAgICAgICAgICAgICAgIC AgICAgICAgICAgICAgICAgICAgICAgICAgICAgICAgICAgICAgDQogICAgICAgICAgICAgICAgICAgIC AgICAgICAgICAgICAgICAgICAgICAgICAgICAgICAgICAgICAgICAgICAgICAgICAgICAgICAgICAgIC AgICAgICAgICAgICAgICAgICAgDQogICAgICAgICAg ICAgICAgICAgICAgICAgICAgICAgICAgICAgICAgICAgICAgICAgICAgICAgICAgICAgICAgICAgICAg ICAgICAgICAgICAgICAgICAgICAgICAgICAgICAgDQogICAgICAgICAgICAgICAgICAgICAgICAgICAg ICAgICAgICAgICAgICAgICAgICAgICAgICAgICAgIC GgNEKcGRGyTCBvEFHfNFMmEGUuHLYfXXKcXVAtCWCxTROeKFKfTVRzFFs0C7lcFKEgVCMwBY5eGDs5Dc 8+IXsQNhJlJBF9xbUctR9EWP8tl2EqAJnmNZVre0KgAMz8UL8WVIRjYMnoTE6VPDgmdu7XYFSqFSFjpL IDy5qaEoArCZX9PQGdSkwoXP0NTSKqR0qtppYdXDIv GDTBIVayBBBDFAsdOFFVNU8QJzCwZ7UckV84BIKVQl3+BSjrcdRfLtwXYxT6YMDup5IkLMh1KH0DRJSb Ccijz4LbSGExOZVZSKwiEP7ABXK2ULV9XCRjJh3XBKIvJ086odQgWB6WDh2GHrZvOX5hiz8IWLTdFWNe XxuSNrc8YGjkYF0SzBUqOFqDxx6rcoSxzsCRu9Bqzd JyvSWRPAB6yVBaNMJvrKxgnrXiDKIASRO9EIWyOt5iTKTtGWOmXyL5CXPWUV0AIGVfVBLneTZfCOQdDS LKUO5QJWwhXTX6VqjttfYscFVhMQthYD5LWDRpfnQpIOVtKRGTLFn+Mr9FBQ1qn3FwUXl4PsNxXF4yfk 1JROaXCgQeI8C7cHTfG0D0GUjaRa1PILPqCDPkRALx URXEPIuoWZ2RXM1ahsD4RX5SoIOuMINoDVSubDEbKKg4Y49bmSLyYUxwSD1UMSV+Nacho+Cq7WWPZkYYPg VRBgXvLaYWLKRvMnH4GsM0FRt4XoS2KpVJ11nMirwkGnXLhwLL8YOS0bUCRgNPNOVR3CkWQsyZ6xstY8 FCUzQQJDPsFoF15utPGpWFAtCZU7TDIiTf6BCKBlJ0 GxloQonTphsgWsSDJhWYLLKD1CETrudlBkgLEipTsiWF42eCptWX4BZv6QKsByDY8ezd6DvTTaBl7PAE P5HK3JGSHcWVDnSHJuVJE7RBIqBhVcUEfsPZInHWWlBDH8WKUlMHXnFQ1EQmMdCRSbCEesPtMoLZWhGN Zjos8TNQQuOHD2VGeyApJnXSNwYJUaEAmyRGRdIUXp UJD1ZGSsJQZuIR2JSpNqUIQhRJK3YQhbECQlGEQsol4ACHErCVTwPeNbZrNhGHJtONSaDYabJNVeKKB8 EKK7ZZIvRLRkSQ5SWrHfOUXlGQS0FNSlUABkJOZlst1ARQRbAXMwAhBoJbIkNQFoYUDcQKtqVXEhRLC0 LCBiOWKoSRGaVI9FIjMrSMKfLKp1AhcvWOOyVBVixt 7DOZEpQXCiCUa4WBQvPVErETIrKHziTJYoTMQ9HDN0SFJlWVAqRH3TXeNuQWJiKMFuOZojPHTnYKNqty 4NYZMsPYPzRYGdDhEeBHFzLWGgUErtKMZrJSThFSn0NLJuGKWlSU0JJfIyFOEqTkL9OTrtJICsXTVyri 2ELBEaGBFpIuO3RNVuXAVyOREhORjhEDQaGZEmJmev BSVnJGKfLQ8VRiTxOJSwNmO9PEEuYHZzFXRban3NXYGiLCYnWxk8CDQmVSFfBQUiWPghRKBeCXZ6UyFm PTMjHCPrZP0HBwWwUGIjZxT8RVNkAYVjYUNshr9UXWUjRMKuHOH1AHYxRXRgDQVzBQiiKTHrINF3WYCi EIVoDLEyWS7TVbNnBLRhLmVpOHcdFQZlSZXdeh5ZRE WeXUOqDwI7BZBrUMOhVKSnJDeeLXRaEJF0FtJgDIZcDEFtAC0BUoOuAPIdWtw1HCpuUMXdUTNrsn5XUJ MrXNSuDwD5LSRzXDXkUNCyOEwwAXFsSPFvKIP0WYCfLCQtVX9TVvFyVCNfOjI6PHKvXWQvKVVigu2BVN CpOXUsWuL6FfVhRYGrGDPiURuvHGUuCPMdDne0OKUx FIWgIJ4DOmTcWAYxQsS6MPZbYSCqSVOxkx1AWVKuDRTiEXM3ZoUzPFXvKATiKPffOQOgNKM8OFt3GOKz WAElQA1OKnVsAOTiQsA9DJkfOMYiIJQsbw1CCBSmNQV3FCF4TROlZXFeXSHoQAdmBZBpBJB7Ovv6XWEd HCIcWW3WJrUkPJAtARa9DZXiYAFwFGZjxv2WPHFuNB X6BOt5FqRiMQGkBBIeBZkmMIMdFSS1HCGtFJXiUKXbSN7XHnBdARUwEBw4IQjpBLKvKNCbtf1UXDFvJU I8MWk1OmEfUXVlEWGjKUojJIMoQKRkNXV3UAZwYNSaJF5CRtQsXCEcCEScSyyaMGZoAVWyeo9QeJBffA fhzu1BLJpQWd0DeGeoWYN4CLxkEg0fsOB8BaVkOAXP Tt7UttRtGPZuNOOEOAwxJPUvPSG5XrQhGhMiQMUeGQihDTP4PGP8PpDqVYLnFkZpE0ZgCxL7FpglRxA3 MKEsH4KyYYL9TXjpODazAlQ7PNRnAgYcQfN+EO5sKYi+Gx6Uv7KhbbP0nbHkDAn5ATCmSP0LIPRMJ5RO Cg== ID Date Data Source [id number] 05/10/2019 01:11:17 PM EST [facility] Name Value Range Interpretation Code Description Data Milena rce(s) Supporting Document(s) Care Plan [facility] QCTTZw5sRlZUGzUg31/KFMegAZQlg2OiROfpIYb2YNfcBYXxI7DgNHY2mR7wABN4AJpBOdEmUsLaEcC6 lbm [file] ReKzDxNPN2FeD2VpW2MwBuDY9OPf6XDaD0VFM8wGBoLe1RSuP6QjVEAtYwRA8HULr= ID Date Data Source [id number] 05/10/2019 12:32:52 PM EST [facility] Name Value Range Interpretation Code Description Data Milena rce(s) Supporting Document(s) H&P [facility] LEUPTg9tAbHULpKf26/UCUoqZOFkq9BnMLavTEg8QXjiDYQnC5FlAWN6lP2mPCR0NUpRYgZxCzNlBmK2 lbm [file] ICAgICAgICAgICAgICAgICAgICAgICAgICAgICAgIC GnXDAtPDLmBTUpYTMcJUYfIBWlIZ6TRSTjEYZeYKKdXPRyDIObYMJbGKGpMPEsGVXwULCfXMUpQENzRJ AgICAgICAgICAgICAgICAgICAgICAgICAgICAgICAgICAgICAgICAgICAgICAgICAgICAgICAgICAgIC JuEN8TQNFoAEEaQKUfMPVhANDmSMUrDYUwFOHvICOi ICAgICAgICAgICAgICAgICAgICAgICAgICAgICAgICAgICAgICAgICAgICAgICAgICAgICAgICAgICAg ABLkTVSgKDDiQEHtLO6PKAUpMEFaNPEzKQCoWNGaELYpRGTmRQAfJUAvQUDlZARvKMOgCTTcYPGjUVZt ICAgICAgICAgICAgICAgICAgICAgICAgICAgICAgIC GbKZCzBIOcNUUlUROnFRSlCIHoSCMyNH1UTKMkRXOfEZFgBSYpHIIfMGDhCVDoXWLkXNBzHLFiXUHgCN AgICAgICAgICAgICAgICAgICAgICAgICAgICAgICAgICAgICAgICAgICAgICAgICAgICAgICAgICAgIC AmCEYpTJ2XMSPcAAPnSARbFTBlCVVvMYBsUIIzVXWz ICAgICAgICAgICAgICAgICAgICAgICAgICAgICAgICAgICAgICAgICAgICAgICAgICAgICAgICAgICAg NUQxMNQcFTFzCJFjMQHhAK3CXWVbNHMgMEUxFHSlNHRtBXKqIJVhHTJkJGQuKGBmOUPwJDOqZKKmBFZp ICAgICAgICAgICAgICAgICAgICAgICAgICAgICAgIC JnWAOcMSRtAITlVHOdBEKkJVUkSGKhSGGcCU8XLSLsPYQrJHYeYAAsHEVmFDXdZMVdIEQaVLJiOUMeVN AgICAgICAgICAgICAgICAgICAgICAgICAgICAgICAgICAgICAgICAgICAgICAgICAgICAgICAgICAgIC EtPWAmGXZaTS7CIUPsLWEkJTEdLOKhDOKxQDTlXSPf ICAgICAgICAgICAgICAgICAgICAgICAgICAgICAgICAgICAgICAgICAgICAgICAgICAgICAgICAgICAg GRSgLTKoLDHsDRCePILeMDAmAX2ZYBTwYDNlFBCiSLErRRGlMJUsWVFwRZBcOUYsXRTaMBJlJUTrHKYv ICAgICAgICAgICAgICAgICAgICAgICAgICAgICAgIC MmHBPmUEUsWKUhMVHtXZQhFQAtOWAaAPYtNFCcZG6HDY43bUVhe4J0RKQyAQ0nlun/Cm7BACkgqxIcgA RlPY3TMcSuWP1lfy8VPuHvDB4var7HBFgNFiXvY8S8bZMrXXEqNORQFeXnU03dLQmjEs09NZkaEZXsGt JuGPe7Dd1JUvQoT3yiHDIfJpG1FBSfKrIyTVxrVE8I j5YtxYQdAGk+Gn6GJF9hu9XbAPobMmXkOB2qcs3FMYnXQjCwL0RepjP7LFV8QPOvNj6ASFIxTPZlgLWr PBYsIWNFSwHbX7KtnY28VGRVAa3+BVqetqAoKwfCYjS6TAOfs1RbRDd8UU8TNYTdQZd6iOHvFPARTHT5 GFMfbZDcsIVSNOP6rS0nYUnqrdHfVS8ATOU2FGDiKw 6qOXQzQXDzKeXlIXKYHT0XIJRnHZSccNTmIKFpWCUJWZ5HJGzqIRE7KqftvsTxnBTxRSqfCR5YMKGlsw QgMTcgMCBSDQo+Vv0ABH7ze9OtCOqkVBFyIS6wnx2SKHvMJsTnI7P5zNAaH5G8EFnwEp4ABRXaSVJhCP AdOKKAXLdtTG2HFR2jexX2HO7DxRHcTOQhAPAqjHXh JQd2A86kcIGzFJyfHL8QDVZ+Nacho+Os2EJHTdBIQgHZCvWxNgAXDGPqRjA6McD8NDg8EtR8GeZV17jNyf inJuITfjGD1JZS6wJGApVBRONZ0VjBWjwJ0rtsQfYxUnZQCTUhHuR30qrDSkWUQdGOO0TZPmBk2IFLMl G6JdvzYskSgzdkVfUTJcZWSXXP5SSPgwnsAilNPfiK ldPF54aEogWA1DPk7BIaQxTZ6iga1CqIMuIc8QEOBuEA8SWJSzIJWyLNDbUZM6XRBgNtUrMBjvXMFcSP RqCLO7ZALyOKOvWX6MEcMiDNRhPMR9XtLlDVYdRYGxsy8QSSQxPPCzRFqwVOQoKTAfQVPcIOofQIAqMV TlJNI6XPHoYRPeSS9VXiTqLMPjORP8WEewJGCxUMSo cq6BMFGoQSScQjecHBGgYMGmEEYxLFvyUPOiCDDqNEs9VPHcASRcWQ2HWqYlDAOqNOKjHWAiKCXiAZPk me5BSSDcWPRvTEH1SPQxKKKnFRQxYVbxLTNlRTB3HnB7JOUyITGgIB6KBoHzATNhWQT5YkMlBAAkJKQr qv9KLILiQWLwOKRaMeEqHEAsSFLrCIcxAWOeQNG9ZX WhWGVyTQKhYO2UMvGuEWZtEPY0KdSoJDWfDFRjnc0YOVLyWWYnPnn3AuBuYGIwBYIhLJgwMHPvQHW1Tu Q6IMUrGGJpYF0ROqAeVFSwUYs4SZyeHUJbMQOsxp4OFDInHTDgQWp8UWMvAKDqTRRcMOldOAUsICM5HT NrGWSeZNYdOF6QDrUyJIhdDVMRHlp0IBgaW2g7VCKx DL3ZN2Lfm2GzMXdbURCNDCnoWA3cgmBnGVWhNp5PY2lHXszuDCYsZ9TwTGfhYRh5JAQiWzJrCATpFQIp USOsUgQjGZ8iPYC8RdOaJfC4UQRzPnI5GoY4TvI5HaI3QpU9HkRtPZP0VrKpAH3RDf2FUdG1IKW8vTNn Ni1TEAS0NU3EKXHTD3FRDh== ID Date Data Source [id number] 05/10/2019 11:54:35 AM EST [facility] Name Value Range Interpretation Code Description Data Milena rce(s) Supporting Document(s) Consults [facility] PMXDDz5zIbZUWhEq37/UMCynIGWgn5LoJXduFSt1DDlmLMAjG3WnWRQ6jY3xFRS9RQwKYnExDwBzReE8 lbm [file] RODRÍGUEZ/78fQA7mZWxqfgW7c9Ca+5osxxgc2NUD+h9owD1L6Cyaysx++R/Fl4TiFkftQymEVb57azxh67SGef 4X32ieX+JAjzxRfd7mJwi632kYmsBB50aCzU3/iY6lr4Tr9LFh+TrQL1e3TQfbyq9HE0mZed2C4f5SKv Mar9flC2Ky3yPFyoaEy4gj0+N3kKtabMK69a857bsp wO4ok8wpj2SauwONkgn3Q33xm0ZUT+fqV5pZb3eFAmyJs7BtplSkeYbp4A1zEhhkdM8iJXp+YP/ZgfqB RS7mxQcKGFJAPgOp4KuFDzkEcyohS+1CctL+MCo90bhCB6FMJ9QEtEMceLYDxiOanHPXliKchCbGj0TZ Zy331YVhYNYAZGNzAXPoJVYbhLf00aL1CcMGrjSVxC 2BYgeDoqe4Ij65NqniDNKnwZoHkk38Xkh/dPKdwFM/3lItHp6E0dZOU8kECzh2kpYV1Fjw3bgmiEUsDh +cU/wYeh80/W47QfoWzs81qt+yessDfPM99JGVNMSOHnwh5iMgcg2RU5uoc82IQKc+hsgHa6gRSbNYLp h/PsTwFPSoriaVlJ+xXP/paVzBMapFiSksDSLkmxCO [file] DA SILVA/6IDTk12Vv6nIj9vCbES6sREtcD39dF+7q2PqEtZ 3ZyNQlf/FB9U5gZ7eYTW9ACAvquAqerqJ6gz+Yn4HDR773z3ZIzCGk9vv7PQxLWv/Fk+yTvhZ6unY6ZS 67ZGHFRRcumH/BvLlzZs+aOWN6+fScDlkRWNmuFjTtDXbhhbRV6L+vb5/eZ/EB3TputXo2whoeHexedU rSIdA+4y7h9xJhcL9ziHSt23c9t6vAK3W5ToVQ7IYh n7tvvyKDTCsIH+eOcAmG6TUYcWYt5I6vWVAKDABfeM+s8IK8Hz7awuE/yPBKnipBzEGqN2gXJFW0Q5nz t67+Pilar/2No7bW0nYq2epVymakRBA/nXfGis4g4P8MXk2DMs8TumzBd2x5DhYbhCn1kBczlcfPOB2Oh2 [file] QtC5SNjsEcEoByNgXD3BEv8PFdZ6VOL5gLLwSs3QPeH9VDuRJtXfBN3UAUu= ID Date Data Source [id number] 05/10/2019 11:17:41 AM EST [facility] Name Value Range Interpretation Code Description Data Milena rce(s) Supporting Document(s) Nursing Note [facility] MZPXKw1yCfUQBgWh89/NTEgvVBGab8JiQCemQNa7MEohIRSoM3QsBZR1cZ1lIZM3KVnTNvVnDwVkHwC8 lbm [file] ICAgICAgICAgICAgICAgICAgICAgICAgICAgICAgIC AgICAgICAgICAgICAgICAgICAgICAgICAgICAgICAgICAgICAgICAgICAgICAgICAgICANCiAgICAgIC AgICAgICAgICAgICAgICAgICAgICAgICAgICAgICAgICAgICAgICAgICAgICAgICAgICAgICAgICAgIC AgICAgICAgICAgICAgICAgICAgICAgICAgICAgICAg ICANCiAgICAgICAgICAgICAgICAgICAgICAgICAgICAgICAgICAgICAgICAgICAgICAgICAgICAgICAg ICAgICAgICAgICAgICAgICAgICAgICAgICAgICAgICAgICAgICAgICAgICANCiAgICAgICAgICAgICAg ICAgICAgICAgICAgICAgICAgICAgICAgICAgICAgIC AgICAgICAgICAgICAgICAgICAgICAgICAgICAgICAgICAgICAgICAgICAgICAgICAgICAgICANCiAgIC AgICAgICAgICAgICAgICAgICAgICAgICAgICAgICAgICAgICAgICAgICAgICAgICAgICAgICAgICAgIC AgICAgICAgICAgICAgICAgICAgICAgICAgICAgICAg ICAgICANCiAgICAgICAgICAgICAgICAgICAgICAgICAgICAgICAgICAgICAgICAgICAgICAgICAgICAg ICAgICAgICAgICAgICAgICAgICAgICAgICAgICAgICAgICAgICAgICAgICAgICANCiAgICAgICAgICAg ICAgICAgICAgICAgICAgICAgICAgICAgICAgICAgIC AgICAgICAgICAgICAgICAgICAgICAgICAgICAgICAgICAgICAgICAgICAgICAgICAgICAgICAgICANCi AgICAgICAgICAgICAgICAgICAgICAgICAgICAgICAgICAgICAgICAgICAgICAgICAgICAgICAgICAgIC AgICAgICAgICAgICAgICAgICAgICAgICAgICAgICAg ICAgICAgICANCiAgICAgICAgICAgICAgICAgICAgICAgICAgICAgICAgICAgICAgICAgICAgICAgICAg ICAgICAgICAgICAgICAgICAgICAgICAgICAgICAgICAgICAgICAgICAgICAgICAgICANCiAgICAgICAg ICAgICAgICAgICAgICAgICAgICAgICAgICAgICAgIC AgICAgICAgICAgICAgICAgICAgICAgICAgICAgICAgICAgICAgICAgICAgICAgICAgICAgICAgICAgIC ANCjw/eLNpI5mlkGKhhmI3U6dyZz8JHs2LAY4ob9KaWQZlHXcfkzDsQjdMQtLeRNNgFsnESrk3WEhzGX 9WaSLwF1XrK7EcIUecGR8WTZHwIITbeOTuYVCaTQKt XlI5RKEsLLifMW0LoBQvDOqaWKPdQYHsSK3TRDZrP090gzBrLW8NHe8CMuUrDY4crp7UBjOeZXFuLmqC Rga4ZQizBV7EhHGdlQBuDfZvNYDZDcPgZ5vyf6WfMjExGAYEVZoxBV2Cx4OjwFQoYJl+Zy3GIL5go4Kh WQltTwUxID0wxu1EIWnLRaPgE3PznRaiPP47llIpue npXf10UNLpsWMHuv4xYNNiiSNqQ439XXbaf4vdDMBVBFY3IAElYz4qQZYpYCGjNkF3WLJSEL1BCFXpVT QypPHeTVBxPPPKWJ5TJRzyNMF0EplfcwCcqRYzUBoaNJ9HHOVayfDgBpZgZSOLMIk+Nx6UNE4wk3PsOX nfGDEyNV3pwf9HIFtMBgFkN0Y5aFGjR9U6TNlhNc8F TNWpEBCaBwGeTIIWLEfrTW0LAL7cbhG6DK3NvRAyFLDfUNZdnVOyWNq6T48btDVuQRadBF5EKEF+Nacho+ Cf5CACAsLZHzMRSkOqScJBKPNfRiU6RcG6CKc6VxR9HwWP61vAiejbOzKVitXA0VWY1tOZLoYHBWTG4Y kTUxkN4reyVlJoPpIFGHTiUcC14nvRWiPUAqAWXiUB CsZc5IFULyM8PugwMobOidrdSeKCPuWLWFUF9TUPydkgUvdMYqvNqqGB67mLzbAP0CTk4ITtNlWF1kmq 7VjIIqWa9PVBHxRE8LZWWbHQFcNUYxMRQ2EQAyYaDmZZsvQNKyAJPcLOO8CEUbWOEoAK9WRdKqYSZuWG i6CnQrRTWsVDOuoa7OXTJvWEVpZBF1PGUvHGQrXVRd KUmoCAKiQTWdNJA9MOLtMRAkCM1ZIdHcKXInDNLzEBTlUKVxQEAfkd8AVCJbFKIeIXW3AlMkBXBaOXZd LMglWAQzCCQpJjV4HNDrCCKfYR2KIeWyVDBlBBC2EIZlAFTeVFYqho8EXIFyKRGzYdNkTHCeXHVzTNQh SLyhBLQlGCBpHEU1XMVhWRRbRP0FNfDaAQAwLBB9SW ZfBUEzYDPpqn3TWBTzWWCaBwsnJQOeIZGwYNHiOHdlPMBqCIY6Dou8FAHtMSJyFR4CFlDoYMLaRDX7EM SpJOXvBLJzlj3ORDTuUOQbDyibHjEpKBJlUPWeULvvIRYyHAZ9LWNaVXFhZQFaWW2YTdTjSQYoNJemMQ luGNXkYCBwiw1CRNBqXZRrHAF7YUPvKDLwELHzJIlh SSQqCVW5ScV7DBWvEOWkHF3XFcTiANDkLOo0PUujIMEmUKPxon1JKJVzSFKlPPmsCIAuCNHyOFQsVDgo ZWZtLHVsPeOvIYWhPBFsMC1HVnOiDGTeHvD3KjRjLICrRSYksw8WNQHfBBFeKBP4CfNwGWEzKVSmJGd6 fqXvuEZmEGu3FP9LL0ZqjwTeWoMECc4Ai620FCH0RE KzMb0IP6yxCl4iNLHtEJDLAd5ZQLk8BMTjMOF4XYUjA2T3KiWkDCA0LOfjH6BiIjc3DETcHVE+IDxhY2 I0JEy9SuHoLph9SULwZZCuWJSiHgAyITP6ScBoRB0tRBFVAk7+OOnaiIYmkVhmIOYKCmLoYJZ1BTtwPR VPRg0K ID Date Data Source [id number] 05/10/2019 05:55:44 AM EST [facility] Name Value Range Interpretation Code Description Data Milena rce(s) Supporting Document(s) Nursing Note [facility] FVIXAj1hGuUJPvUf72/KVUfyARAbi8GaWNegEKk3EEptQUFzB5AoHWV3pZ2aZEC3XJmPAiSdBkCjOwT5 lbm [file] RODRÍGUEZ/16aLT0lXCzoewD3u0Cc+1knakyp6PLR+v5jxP1M [file] bending press operator+4LhGTiwWQPbM7yGBh1+33/7ONBapFILmc3T322dxLquyG7iDApN/fnB1fpOp11+r6QS986cVk7tZ oHcMt9iSHXprf/7p78nxorqjGy3NdzU1psaafoxpi+KZyqPiHNsWPZfh+v9yLl6KsqOg6efdrbLn3ORM bfJzgdTKwkDM/ck+HY+CuEtFYDST6dMNs/MSDztTas dQ6+paOYgDmqhFW57bhH/1I4/i85qPOvhDc6k4rqnNpL0c+/W0CEkuWYbiVHRUpl/V8NajL1lhj73NWu Gzr8p6uJmGtU5CJYv9v4oJ49Ql7/0378n/vPl7ncbfp5RYx4zy5kc4awppXD/nf1t6o7C0HVgske3a1E AFuB/G2aY2HfhUS0Idt0ynQ6zu9Wh+fIddORa3UO92 yr59fwBVqMjc8I+E8HGZx8Bpg3ts2n9+nxd5T4x7QfHh+lNv8fJ6zPMo1PPUga1vefc/FigaW9l/O8h/ 4UTT/V0bWg2p88tKEvjKF+FoOXtzUwPbfQz7NzSCWkMG2GKFKcyFhxwEeff592Pogpu6Xdem+8hR4KB/ j87OtTB9+O4kSZbn733YQ88i17b9/D2hca1JiO1wl7 [file] AgICAgICAgICAgICAgICAgICAgICAgICAgICAgICAgICAgICAgICAgICAgICAgICAgICAgICAgICAgIC AgICAgICAgICAgICAgICAgICAgICAgICAgICAgDQogICAgICAgICAgICAgICAgICAgICAgICAgICAgIC AgICAgICAgICAgICAgICAgICAgICAgICAgICAgICAg ICAgICAgICAgICAgICAgICAgICAgICAgICAgICAgICAgICAgICAgDQogICAgICAgICAgICAgICAgICAg ICAgICAgICAgICAgICAgICAgICAgICAgICAgICAgICAgICAgICAgICAgICAgICAgICAgICAgICAgICAg ICAgICAgICAgICAgICAgICAgICAgDQogICAgICAgIC AgICAgICAgICAgICAgICAgICAgICAgICAgICAgICAgICAgICAgICAgICAgICAgICAgICAgICAgICAgIC AgICAgICAgICAgICAgICAgICAgICAgICAgICAgICAgDQogICAgICAgICAgICAgICAgICAgICAgICAgIC AgICAgICAgICAgICAgICAgICAgICAgICAgICAgICAg ICAgICAgICAgICAgICAgICAgICAgICAgICAgICAgICAgICAgICAgICAgDQogICAgICAgICAgICAgICAg ICAgICAgICAgICAgICAgICAgICAgICAgICAgICAgICAgICAgICAgICAgICAgICAgICAgICAgICAgICAg ICAgICAgICAgICAgICAgICAgICAgICAgDQogICAgIC AgICAgICAgICAgICAgICAgICAgICAgICAgICAgICAgICAgICAgICAgICAgICAgICAgICAgICAgICAgIC AgICAgICAgICAgICAgICAgICAgICAgICAgICAgICAgICAgDQogICAgICAgICAgICAgICAgICAgICAgIC AgICAgICAgICAgICAgICAgICAgICAgICAgICAgICAg ICAgICAgICAgICAgICAgICAgICAgICAgICAgICAgICAgICAgICAgICAgICAgDQogICAgICAgICAgICAg ICAgICAgICAgICAgICAgICAgICAgICAgICAgICAgICAgICAgICAgICAgICAgICAgICAgICAgICAgICAg ICAgICAgICAgICAgICAgICAgICAgICAgICAgDQogIC AgICAgICAgICAgICAgICAgICAgICAgICAgICAgICAgICAgICAgICAgICAgICAgICAgICAgICAgICAgIC RuBUAwVHToHWArPFGmWLHlYPVpEDFxRNCcDAFmPPFtVRCcSMSoPIc1O2eyXIVfGQQvFQ0oDLi1Gt6+DQ tCUiEsNNE9qcAvnT8JIM5xk9KrLKnwROSyi2RxYYw9 RZ5AQJEtXVnbFE6JPYbcur8FIEZsCQNywUKLr2lnStMsXUD0YWOxQkzzCV6LFTUmX2wtsiErVVGbXVGE ZB8SUhPxK6WbyJ39HGHYBk6+PYrpnzMtQlwKYaVvKUKpe6GsKJe6OT1JKXEsZnoke2TxPwSjNTVAXIwa SQ2KQTA3UOAuPQPcMn0BUDWfK193xhJpRY4ZMj0RFy PtGB6rna3IQqRiGNCtGhtMRpk0RNfwMW0RwQGoMLdYjUJojS1dJS2jaFErQtboBfQxBEPbTlvoi6UtHD GHUVQ8DPKtMh7hRSMxKRA2JmP0VILWWP8XUDLkWYKihPIrWLDeODSZQX7MWLlaRYI1KwmlztAyuEPtXB quJX0IUPRdznThHiHjSZVPUAk+Xi0DYN8ws7LiHQzz RQQtTD3dsr8FXLrYCvTzW3D1yOVaG8I5LKbiHq0ZXGQwMLIrJmTyQEFGXPmoON3ARA3gsnJ8LC4DmVLr DXNtSMZcrRRtJEc9L13uhVZqKAxcSE7LOXY+Nacho+Su0IMWFzJDAfCMUtFwOtQMGZBtBeI3EsK1TAl7Ns I9LtMB04eXpejoKbEMpfGE7GVH0aHPNtNUCKHN7BiO WiyR6pvpCgDzVgOUIQRnRcO88bnUVlYFJxISDwJUAaSb0APPZzL9LvshUegKbiujZmRENbIURGVY0GXE rqhiXgmVFgfAmlGQ53kKkqHY8RTw1UFpOiSI3rfh2SdBJjNf3MVNAkJK2SYZFvGPXnFEGzVZU2KJWiDj WoUQxfLMFpLBKpBJX8MOQwNQUnHL9NBuLrUKAtHPk0 AKckKRBuXUZwkf0DBXYkRHVaUEW5VWRyYRCvATGzMNtyNGJoTCPeXDD2VMOkWVMmMI7QHjRsLKZzLCGy XItoLVCdBTUxue5HVWQlXYOxDAJ1MiAmBGDxYDUcJZbgTDNuHRPmBnWiYIJpUITnUK1HEsQyKNTgBPT6 BOIhYZYlWEBifd8IECCoKIVzTgOpMeBpESOfJVYeOT tfVGUhWOLbYOj5ZHTyBLLnCS3BBkVpQUKoQKB0YDZvDGRqQDNjlm9TCUUtONNzQuo2FUPaTZCcRFHkGP vfTKDiHNQ3CqE5GXCjZSVvYO9DLvUtLJQqSFT9KMDdGHOoKOLcxl5AOYLiNEHoAde1MCIiJNVwQFGbUU ryWPAmJRQ1EFm3WCJqETNlJB9NPrWvZQRpYHueBhDm QWTeXHQtow0DQMRiEMJfPAH2IyYmJKReKCBgXOhjEHNwGSY1OcKvNVEqDZMpCH8YKhRfOTFtKRn3NhSi CLXbRSRkbx2HPAEiLFVmYCc9SSLaYOUqQTXgGHdaULHwVYJkQyi0VSEhJEXgHG0NJzWcYQYsPxI1VyIm CQZiLHSskq2XZJCcAACrYIVzUeRgUMShOXIxYBy6ef YbnYQtOKc1EM3PQ8NlvaTwPaPJQx4Kc549TFG7RXBrRs9OF7xaVr9dLKSsPMGCFv0DUJw2BarkJ9VtND UaBtawYhLpFjKhIEIvOjBgEVd2TsheHLP+XLxdOOTtKEMpZHAaNZK0FWBrRGNaWJP3QyG0PDV2BHT7Xt 7nVPWGFw5+BEbhyCOyuFffFHZKKuJdBDL9VMrdVSGYYx3Z ID Date Data Source [id number] 05/10/2019 04:46:16 AM EST [facility] Name Value Range Interpretation Code Description Data Milena rce(s) Supporting Document(s) Nursing Note [facility] HVSVGr0wUiCPDnJd36/FUZbzNUXxf1XoIBcnLEa1MHobGXIxV5YuJHI5qX4qJUN4JYqLOpMeTfYaKhG3 lbm [file] YiTc7PDjC5XvJWHfYfWQ1REPq= ID Date Data Source [id number] 05/09/2019 08:51:14 PM EST [facility] Name Value Range Interpretation Code Description Data Milena rce(s) Supporting Document(s) Nursing Note [facility] YBCTEm0qBiWFUdCv16/OTJdoQVMao6ExBTebBVs2JMehYKDyT2XiVWA5bQ6dHXM1BTnKJyVbAcUhBkE5 lbm [file] ckKdIVkvCME0WY9YFHJDL9MDOp== ID Date Data Source [id number] 05/09/2019 05:24:05 PM EST [facility] Name Value Range Interpretation Code Description Data Milena rce(s) Supporting Document(s) ED Provider Notes [facility] BQYJHd9yYtAFXmDq60/PAEezTHRrs5WnDDyoUQs2XBffVCPgE1YdHED3eI6kTJO4VZeHYxHhXrTxUlF4 lbm [file] [id number] ID Date Data Source [id number] 05/09/2019 12:03:00 PM EST [facility] Name Value Range Interpretation Code Description Data Milena rce(s) Supporting Document(s) Amphetamines, Urine Negative Negative Normal (applies to non-nume courtney results) [facility] Barbituates, Urine Negative Negative Normal (applies to non-numer ic results) [facility] Benzodiazepines, Urine Negative Negative Normal (a pplies to non-numeric results) [facility] Cannabanoids, Urine Negative Negative Normal (applies to non-nume courtney results) [facility] Cocaine, Urine Negative Negative Normal (applies to non-numeric r esults) [facility] Opiates, Urine Negative Negative Normal (applies to non-numeric r esults) [facility] PCP, Urine Negative Negative Normal (applies to non-numeric resul ts) [facility] Methadone, Urine Negative Negative Normal (applies to non-numeric results) [facility] DrugMinimum Detection Threshold (Conc.)A [id number] ng/mLBarbiturates 200 ng/mLBenzodiazepines 200 ng/mLCannabinoids 50 ng/mLCocaine Metabolites 300 ng/mLOpiates 300 ng/mLPhencyclidine (PCP) 25 ng/mLMethadone 300 ng/mLOxycodone 100 ng/mLNOTE: Phentermine may interfere with the amphetamine analysis.NOTE: This urine drug analysis is a screening procedure. [facility] recommendssubmitting positive specimens to a reference laboratory forconfirmation. Oxycodone, Urine Negative Negative Normal (applies to non-numeric results) [facility] The above 9 analytes were performed by Esthela Linder [address],[id number] [address] ID Date Data Source [id number] 05/09/2019 10:54:00 AM EST [facility] Name Value Range Interpretation Code Description Data Milena rce(s) Supporting Document(s) Urine Color Light-Yellow Light-Yellow,Yellow Normal (appl ies to non-numeric results) [facility] Urine Appearance CLEAR CLEAR Normal (applies to non-numeric results) [facility] Urine Specific [place] 1.016 1.015-1.025 Normal (a pplies to non-numeric results) [facility] Urine pH 7.5 5.0-7.[address] [facility] Urine Protein NEG NEG Normal (applies to non-numeric re sults) [facility] Urine Glucose NEG NEG Normal (applies to non-numeric re sults) [facility] Urine Ketone NEG NEG Normal (applies to non-numeric res ults) [facility] Urine Bilirubin NEG NEG Normal (applies to non-numeric results) [facility] Urine Blood NEG NEG Normal (applies to non-numeric resu lts) [facility] Urine Urobilinogen <2.0 <0.2,1.0,<2.0,0.2 Normal (crescencio lies to non-numeric results) [facility] Urine Leukocyte Esterase NEG NEG Normal (applies to non -numeric results) [facility] Urine Nitrite NEG NEG Normal (applies to non-numeric re sults) [facility] The above 12 analytes were performed by [facility] [id number] [place] [id number] [address] ID Date Data Source [id number] 05/09/2019 10:37:17 AM EST [facility] Name Value Range Interpretation Code Description Data Milena rce(s) Supporting Document(s) ED Triage Notes [facility] [id number]/CYTpvKLJtj0JhLUnsSEx7JXveVVBhP2ClYMN7hH9sLUI8WEqAAmMyYlWnEbX3 lbm WgAeuVMiJsQKJvXseUUrAnZClyFdnbtWVpUV7GeXU5MGStR40pGEEgSVSlG8KtCRDhLqT+Lg0OBCQrsM EjUU0RSyjR6XtLrdt4VV7g6N+JIxruEvv5FXq3Ru6MNnPwINl25zxgW83bs50Nuac8+5DPqiTo6Q2oD5 6LJgdrQHJm+GbecCibyP/5CSa5akTw+n/zmBeaLm/o yR/MSDU8I977ZBJtpMGW8C5T7MkV/c19RSggJ/ZCCpgfYghCnbPnLkDvmPNwiCXGk7Nzy0pb8GcrpjSf ZxtWvcUPlHU5niZNBXizf5DkBcg0qRzPS85M+JKvdlZ9LoZoW8utB5OagwlAah8Zjg+PpFrxL23x2eQn oxJpxOMXd1Ov1L694QJShhtub2YSocLcM9axanaffM 61o7lQV7ddUdXTHA/1fO3eAB1UoXv6eQw+XVlLctKCt6VOOgjGyXrbcKuPXRcUuEUKfjL2hu5k2obm6G 9SQcGv06qJ22T2Qx/Fw8Qml0OwXrxtUtrwETEApENP8FfV2FZWormI6PZiEdRnMG9ti9dho/VukiLJOw RWKO3a6jM6PahmuUNYy3I7jKBntxRTHPA8z7Dwc6Hj YxM2QG0mORB9ayIf/sYzHuJdpoKX9HFf/vO3dgWEhkvv6bGHqIS8kYdly18tr6go9N1UkVuRAUWmyBmx BuVBMcpNZ+SCRZmPuHdynA1oc+SsqqsBEtXS5DlytYnBe/E4E143Rl+9dvzuC2AR24CB0k3AJFTWnaU6 mXgKAhvRPdsyOCr0OcXIxOtpFAiy54JDEUbBk7tFu/ Am2JR0AOreAImDK27sD7cxG2GSsTuUBiDpkOncUbFbd4M/05Z+rLj5J3oMqlVzgcQ0aYfT0SnTGrjzcq p1dIe9rDs5kXzxJAJcyBhB+k5px9PSek+BH8RNBfHPb1lSev4heSCq3gdQJHJCgFD2Fu0tgX3F9Ggol7 nVCQc56pBTTWKqH4oYLQKmHa+PNVTjaNLZIYbvcU4p YR7g+5LpDCdlTeQKWWWllJbizwBrfHJ4mFMGXYdOhWSiFVbI/PaYWM30RoPHKFAGDoGS+BdqzOOm9Z3/ SkvuziWQthjGIMRSXxEUkSbfSAyxeOOwYpWH5cKXbFDqE+pTdPW1YWNNQL27epfzQECJr89aSGlCaS0r 7bYxcIsIUTsms2FSQppgBhW8RSvDVNZS43PZAxJPtY ABk6dq1akXYQD1zRTa1Buh+PdmNru/1ixJdNYfZDAh7KntRM51pzwz0bJ7mx1fJSCSCewDXqZLlDMbHp dwVqNEDHDXIgZyfcWlvusfRQuYmIoYTSnd+6PH2nLhjg9hw70lDMTxBxrLn9NayMFrx7Y9yW/UIEpIi0 gTeWM4wrDGODxi5qDep57ORrd5cf/ELGq/MRtRPC0v rMehuj6olPyTk3R8JxploUOkC/ejqCAVrITJ5aanRu+QNxfuDuBv91wcdFVNYiX1qft3kCmt8iY8PJwr Tq6jMzf/PSEBFmAJTvjwM0pj8dsP/oiEhpemQmB6qhouys1JfVoNj7idPl6iUD3j/OoZUZC95ddt3Sx2 ROBBINS/rnxWc6oXlN+8mXmn8iGCOOBw+Lj91B55rCCL6M2 [file] QIWxHqM7ViXbQROtEpW9Ta6sEBEUNb7+NPkesMDzgTnsZKHSVwi5RxTRZyIqWC3YOFo= ID Date Data Source [id number] 05/09/2019 12:03:00 PM [facility] Name Value Range Interpretation Code Description Data Milena rce(s) Supporting Document(s) Acetaminophen <2.0 ug/ml 10.0-30.0 Below low normal [facility] The above 1 analytes were performed by [facility] [id number] [place] [address], ,[place] [address] ID Date Data Source [id number] 05/09/2019 12:03:00 PM [facility] Name Value Range Interpretation Code Description Data Milena rce(s) Supporting Document(s) Salicylates <1.7 mg/dl 2.8-20.0 Below low normal [facility] The above 1 analytes were performed by [facility] [id number] [place] [address], ,[place] [address] ID Date Data Source [id number] 05/09/2019 11:09:00 AM EST [facility] Name Value Range Interpretation Code Description Data Milena rce(s) Supporting Document(s) Alcohol, Blood <3 mg/dl 0-2 Normal (applies to non-numeric r esults) [facility] Alcohol test results for medical purpose s only!The above 1 analytes were performed by [facility] [id number] [place] [id number],[place] [address] ID Date Data Source [id number] 05/09/2019 11:09:00 AM EST [facility] Name Value Range Interpretation Code Description Data Milena rce(s) Supporting Document(s) AST 20 IU/L 15-37 Normal (applies to non-numeric resul ts) [facility] Sulfasalazine and sulfapyridine have the potential to falsely depressAspartate Aminotransferase results. Baseline values before medication administration are recommended. ALT 23 IU/L 16-61 Normal (applies to non-numeric resul ts) [facility] Sulfasalazine and sulfapyridine have the potential to falsely depressAlanine Aminotransferase results. Baseline values before medication administration are recommended. Alkaline Phosphatase 64 mIU/ml 50-136 Normal (applies to non-num giles results) [facility] Total Bilirubin 0.60 mg/dl 0.20-1.00 Normal (applies to non-numeric results) [facility] Blood Urea Nitrogen 19 mg/dl 7-18 Above high normal [facility] Creatinine 0.81 mg/dl 0.67-1.17 Normal (applies to non-numeric resul ts) [facility] N-Acetylcysteine (NAC) and Metamizole nettles ve the potential to falselydepress Creatinine results. Baseline values before medication adminstration are recommended. Patients undergoing treatment with phenindione will have falselydepressed results. Patients on phenindione therapy should be tested with an alternativeCREA method. Glomerular Filtration Rate >90.00 mL/min/1.73m2 [facility] GFR Reference Ranges:Normal Function or Mild Renal [...] of Health and the National KidneyFoundation. The Dodge method used in calculating this result is traceable to [employer] standards. Glucose 71 mg/dl 70-110 Normal (applies to non-numeric resul ts) [facility] Sulfasalazine has the potential to false ly depress Glucose results. Sulfapyridine has the potential to falsely elevate Glucose results. Baseline values before medication administration are recommended. Calcium 9.5 mg/dl 8.5-10.1 Normal (applies to non-numeric resul ts) [facility] Total Protein 7.5 g/dl 6.4-8.2 Normal (applies to non-numeric re sults) [facility] Albumin 3.8 g/dl 3.4-5.0 Normal (applies to non-numeric resul ts) [facility] Sodium 138 mEq/L 136-145 Normal (applies to non-numeric resul ts) [facility] Potassium 4.3 mEq/L 3.5-5.1 Normal (applies to non-numeric resul ts) [facility] Chloride 105.0 mEq/L 98.0-107.0 Normal (applies to non-numeric resu lts) [facility] Carbon Dioxide 28.5 mMol/L 21.0-32.0 Normal (applies to non-numeric results) [facility] Anion Gap 8.8 [facility] The above 16 analytes were performed by [facility] [id number] [place] [address], ,[place] [address] ID Date Data Source [id number] 05/09/2019 10:48:00 AM EST [facility] Name Value Range Interpretation Code Description Data Milena rce(s) Supporting Document(s) WBC 7.31 x1000/ul 4.80-10.00 Normal (applies to non-numeric re sults) [facility] RBC 4.56 x1Mil/ul 4.70-6.10 Below low normal [facility] Hemoglobin 13.8 g/dl 14.0-18.[address] [facility] Hematocrit 41.4 % 42.0-52.[address] [facility] MCV 90.8 fL 80.0-94.0 Normal (applies to non-numeric resul ts) [facility] MCH 30.3 pg 27.0-31.0 Normal (applies to non-numeric resul ts) [facility] MCHC 33.3 g/dl 32.2-37.0 Normal (applies to non-numeric resul ts) [facility] RDW 11.9 % 11.5-14.5 Normal (applies to non-numeric resul ts) [facility] Platelet Count 269 x1000/ul 130-400 Normal (applies to non-numeric results) [facility] MPV 10.1 fL 9.4-12.4 Normal (applies to non-numeric resul ts) [facility] Neutrophils 77.6 % 40.0-74.0 Above high normal [facility] Lymphocytes 12.7 % 19.0-48.0 Below low normal [facility] Monocytes 6.3 % 3.4-9.0 Normal (applies to non-numeric resul ts) [facility] [facility] Eosinophils 2.7 % 0.0-7.0 Normal (applies to non-numeric resu lts) [facility] Basophils 0.4 % 0.0-2.0 Normal (applies to non-numeric resul ts) [facility] Immature Granulocytes 0.3 % 0.0-0.5 Normal (applies to non-nu meric results) [facility] Nucleated RBCs 0.00 % 0.00-0.20 Normal (applies to non-numeric r esults) [facility] Abs. Neutrophils 5.67 x1000/ul 1.92-8.31 Normal (applies to non-numeric results) [facility] Abs. Lymphocyte 0.93 x1000/ul 1.20-3.70 Below low normal [facility] Abs. Monocytes 0.46 x1000/ul 0.14-0.97 Normal (applies to non-nu meric results) [facility] Abs. Eosinophils 0.20 x1000/ul 0.00-0.76 Normal (applie s to non-numeric results) [facility] Abs. Basophils 0.03 x1000/ul 0.00-0.22 Normal (applies to non-n umeric results) [facility] Abs. Immature Gran. 0.02 x1000/ul 0.00-0.02 Normal (appl ies to non-numeric results) [facility] Abs. Nucleated RBCs 0.00 x1000/ul 0.00-0.02 Normal (appl ies to non-numeric results) [facility] The above 24 analytes were performed by [facility] [id number] [place] [address],[facility]#: [id number],[place] [address] ID Date Data Source [id number] 04/17/2019 09:31:00 AM [facility] Value Range Interpretation Code Description Data Milena rce(s) Supporting Document(s) Thyroid Stimulate Hormone TSH 0.358-3.740 No rmal (applies to non-numeric results) [facility] ID Date Data Source [id number] 04/08/2019 04:48:00 PM [facility] Name Value Range Interpretation Code Description Data Milena rce(s) Supporting Document(s) C-Reactive Protein,Wide Range <3.00 Above high normal [facility] ID Date Data Source [id number] 04/08/2019 04:47:00 PM [facility] Value Range Interpretation Code Description Data Milena rce(s) Supporting Document(s) White Blood Count 4.8-10.8 Normal (applies to non-numeri c results) [facility] Red Blood Count 4.35-6.08 Below low normal [facility] Hemoglobin 13.0-17.5 Below low normal [facility] Hematocrit 37.7-51.0 Below low normal [facility] Mean Corpuscular Volume 80-94 Normal (applies to non- numeric results) [facility] Mean Corpuscular Hemoglobin 27.0-33.0 Normal (appli es to non-numeric results) [facility] Mean Corpuscular HGB Conc 32.0-36.0 Normal (applies to no n-numeric results) [facility] Red Cell Distribution Width 11.5-14.5 Normal (appli es to non-numeric results) [facility] Platelet Count 300 X10 3/uL 130-450 Normal (applies to non-numeric results) [facility] Mean Platelet Volume 9.6-13.1 Normal (applies to non-num giles results) [facility] Imm Grans% (AUTO) 0 % 0-2 Normal (applies to non-numeri c results) [facility] Neutrophils % (AUTO) 66 % 40-75 Normal (applies to non-num giles results) [facility] Lymphocytes % (AUTO) 23 % 21-46 Normal (applies to non-num giles results) [facility] Monocytes % (AUTO) 8 % 5-12 Normal (applies to non-numer ic results) [facility] Eosinophils % (AUTO) 2 % 1-5 Normal (applies to non-num giles results) [facility] Basophils % (AUTO) 1 % 0-1 Normal (applies to non-numer ic results) [facility] Imm Grans# (AUTO) 0.00-0.50 Normal (applies to non-numeri c results) [facility] Neutrophils # (AUTO) 1.5-8.1 Normal (applies to non-num giles results) [facility] Lymphocytes # (AUTO) 1.0-3.1 Normal (applies to non-num giles results) [facility] Monocytes # (AUTO) 0.2-1.3 Normal (applies to non-numer ic results) [facility] Eosinophils# (AUTO) 0.0-0.5 Normal (applies to non-nume courtney results) [facility] Basophils # (AUTO) 0.00-0.10 Normal (applies to non-numer ic results) [facility] ID Date Data Source [id number] 04/08/2019 04:25:00 PM EST [facility] Name: RIVERA LEONE : 1970 A ge/Sex: 48M Ordering Provider: Svetlana SMITH Med Rec #: [id number] Reg Status: ADM IN Room #: 126-1 Date of Service: 04/08/19 Report Number: [id number] cc:Svetlana SMITH Send Report To: [id number] XRP/XR Wrist Lt Min. 3 Views Reason [...] Date/Time: 04/08/19 1324 Transcribed Date/Time: 04/08/19 1625 Director Of Pulmonary Unit: TERE Name Value Range Interpretation Code Description Data Milena rce(s) Supporting Document(s) ID Date Data Source [id number] 04/03/2019 04:07:00 PM [facility] Name Value Range Interpretation Code Description Data Milena rce(s) Supporting Document(s) Hepatitis A Ab,IgM result Negative Normal (applies to no n-numeric results) [facility] Result does not exclude the possibility of exposure to hepatitis A virus. Antibody level during early infection stage may be below the limit of detection of the assay. Test Performed by: [facility] [address] [place] [address] Mechanical Engineering Professor: Joseph Morales M.D. Ph.D.; IA# [id number] ID Date Data Source [id number] 04/02/2019 10:18:00 AM EST [facility] Name Value Range Interpretation Code Description Data Milena rce(s) Supporting Document(s) Sodium 139 mmol/L 137-145 Normal (applies to non-numeric resul ts) [facility] Potassium 3.5-5.1 Normal (applies to non-numeric resul ts) [facility] Chloride 105 mmol/L 98-112 Normal (applies to non-numeric resul ts) [facility] Carbon Dioxide CO2 22.0-33.0 Normal (applies to non-numer ic results) [facility] Anion Gap 4.0-11.0 Normal (applies to non-numeric resul ts) [facility] BUN 18 mg/dL 9-20 Normal (applies to non-numeric resul ts) [facility] Creatinine 0.80-1.50 Normal (applies to non-numeric resul ts) [facility] GFR 90 mL/min >60 Normal (applies to non-numeric resul ts) [facility] Result based on MDRD formula. Glucose Level 116 mg/dL 74-99 Above high normal [facility] The reference range is only applicable w hen fasting. Calcium-Uncorrected 8.4-10.2 Normal (applies to non-nume courtney results) [facility] Corrected Calcium 8.4-10.2 Normal (applies to non-numeri c results) [facility] Bilirubin,Total 0.2-1.3 Normal (applies to non-numeric results) [facility] Bilirubin,Direct 0.0-0.3 Normal (applies to non-numeric results) [facility] SGOT(AST) 23 U/L 17-59 Normal (applies to non-numeric resul ts) [facility] SGPT(ALT) 21 U/L 21-72 Normal (applies to non-numeric resul ts) [facility] Alkaline Phosphatase 67 U/L 38-126 Normal (applies to non-num giles results) [facility] can increase Alkaline Phosp le vels up to 2 times the normal adult value. Normal values for children and adolescents are 2 to 3 times the normal adult value. CPK 92 U/L 39-308 Normal (applies to non-numeric resul ts) [facility] Total Protein 6.3-8.2 Normal (applies to non-numeric re sults) [facility] Albumin 3.5-5.0 Normal (applies to non-numeric resul ts) [facility] Thyroid Stimulate Hormone TSH 0.358-3.740 Above high sujatha l [facility] ID Date Data Source [id number] 04/02/2019 10:18:00 AM EST [facility] Name Value Range Interpretation Code Description Data Milena rce(s) Supporting Document(s) Magnesium 1.80-2.40 Normal (applies to non-numeric resul ts) [facility] ID Date Data Source [id number] 04/02/2019 10:18:00 AM EST [facility] Name Value Range Interpretation Code Description Data Milena rce(s) Supporting Document(s) C-Reactive Protein,Wide Range <3.00 Above high normal [facility] ID Date Data Source [id number] 04/02/2019 09:43:00 AM EST [facility] Name Value Range Interpretation Code Description Data Milena rce(s) Supporting Document(s) White Blood Count 4.8-10.8 Normal (applies to non-numeri c results) [facility] Red Blood Count 4.35-6.08 Normal (applies to non-numeric results) [facility] Hemoglobin 13.0-17.5 Normal (applies to non-numeric resul ts) [facility] Hematocrit 37.7-51.0 Normal (applies to non-numeric resul ts) [facility] Mean Corpuscular Volume 80-94 Normal (applies to non- numeric results) [facility] Mean Corpuscular Hemoglobin 27.0-33.0 Normal (appli es to non-numeric results) [facility] Mean Corpuscular HGB Conc 32.0-36.0 Normal (applies to no n-numeric results) [facility] Red Cell Distribution Width 11.5-14.5 Normal (appli es to non-numeric results) [facility] Platelet Count 295 X10 3/uL 130-450 Normal (applies to non-numeric results) [facility] Mean Platelet Volume 9.6-13.1 Normal (applies to non-num giles results) [facility] Imm Grans% (AUTO) 0 % 0-2 Normal (applies to non-numeri c results) [facility] Neutrophils % (AUTO) 73 % 40-75 Normal (applies to non-num giles results) [facility] Lymphocytes % (AUTO) 17 % 21-46 Below low normal [facility] Monocytes % (AUTO) 7 % 5-12 Normal (applies to non-numer ic results) [facility] Eosinophils % (AUTO) 2 % 1-5 Normal (applies to non-num giles results) [facility] Basophils % (AUTO) 0 % 0-1 Normal (applies to non-numer ic results) [facility] Imm Grans# (AUTO) 0.00-0.50 Normal (applies to non-numeri c results) [facility] Neutrophils # (AUTO) 1.5-8.1 Normal (applies to non-num giles results) [facility] Lymphocytes # (AUTO) 1.0-3.1 Normal (applies to non-num giles results) [facility] Monocytes # (AUTO) 0.2-1.3 Normal (applies to non-numer ic results) [facility] Eosinophils# (AUTO) 0.0-0.5 Normal (applies to non-nume courtney results) [facility] Basophils # (AUTO) 0.00-0.10 Normal (applies to non-numer ic results) [facility] ID Date Data Source [id number] 04/02/2019 12:13:00 PM EST [facility] Name Value Range Interpretation Code Description Data Milena rce(s) Supporting Document(s) Hep C Ab-T Test Nonreactive Nettles [facility] Results called 04/02/19 1142, JUSTEN ROY read back information to [facility] THIS IS A STATE REPORTABLE COMMUNICABLE DISEASE. [...] be requested by the physician if necessary. ([facility] MMWR No RR-3. 2003). ID Date Data Source [id number] 04/02/2019 12:14:00 PM [facility] Name Value Range Interpretation Code Description Data Milena rce(s) Supporting Document(s) ID Date Data Source [id number] 04/02/2019 12:14:00 PM [facility] Name Value Range Interpretation Code Description Data Milena rce(s) Supporting Document(s) ID Date Data Source [id number] 04/02/2019 12:14:00 PM [facility] Name Value Range Interpretation Code Description Data Milena rce(s) Supporting Document(s) Vitamin D,Total (25OH) 30.0-100.0 Below low normal [facility] Reference Range: <10 ng/mL: Deficien t 10-30 ng/mL: Insufficient 30-100 ng/mL: Sufficient >100 ng/mL: Toxicity possible ID Date Data Source [id number] 04/01/2019 11:47:00 AM [facility] Name Value Range Interpretation Code Description Data [facility] rce(s) Supporting Document(s) Opiate Screen,Urine Negative Normal (applies to non-nume courtney results) [facility] Amphetamine Screen,Urine Negative Normal (applies to non -numeric results) [facility] Benzodiazepines Scrn,Ur result Negative N ormal (applies to non-numeric results) [facility] Cocaine Screen,Urine Negative Normal (applies to non-num giles results) [facility] Methadone Screen,Urine Negative Normal (applies to non-n umeric results) [facility] Cannabinoid Screen, Ur Negative Normal (applies to non-n umeric results) [facility] Therapeutic Drug Ranges for Emergency an d [...] treatment purposes only. ID Date Data Source [id number] 04/01/2019 11:14:00 AM [facility] Name Value Range Interpretation Code Description Data Milena rce(s) Supporting Document(s) Color,Urine Yellow Normal (applies to non-numeric resu lts) [facility] Clarity,Urine [facility] Specific [place],Urine 1.001-1.030 Normal (applies to non- numeric results) [facility] PH,Urine 5.0-8.0 [facility] Protein,Urine Negative Normal (applies to non-numeric re sults) [facility] Glucose,Urine (UA) Negative Normal (applies to non-numer ic results) [facility] Ketones,Urine Negative Normal (applies to non-numeric re sults) [facility] Blood,Urine Negative Normal (applies to non-numeric resu lts) [facility] Bilirubin,Urine Negative Normal (applies to non-numeric results) [facility] Urobilinogen,Urine Norm 0.2-1 Normal (applies to non-numer ic results) [facility] Leukocyte Esterase,Urine Negative [facility] Nitrite,Urine Negative Normal (applies to non-numeric re sults) [facility] ID Date Data Source [id number] 04/01/2019 11:14:00 AM [facility] Name Value Range Interpretation Code Description Data Milena rce(s) Supporting Document(s) RBC,Auto Urine 0-2 Nettles [facility] WBC Urine Auto 0-2 Nettles [facility] Casts,Hyaline,Urine Auto 0-2 Normal (applies to non -numeric results) [facility] Bacteria Urine Auto None Seen Normal (applies to non-nume courtney results) [facility] Epithelial Cell Ur Auto None-Few Normal (applies to non- numeric results) [facility] ID Date Data Source [id number] 02/15/2019 05:09:16 PM [facility] Measurements & CalculationsHeight: 65 inches (5 ft. [...] visit substance abuseHistory of Present Illness (HPI)I, Elana Finney MA, am scribing for and [...] abilify & trazodone. [facility]. Problem ReviewProblem List was [...] - Ofc Vst, EST, Level III [CPT- 62896] Follow-Up Return to clinic: in 1 week for f/uAdditional Follow-Up: Counseled patient on all diagnoses/ treatments. Return to clinic/ ER for any worsening symptoms or concernsClinical Visit Summary Declined Name Value Range Interpretation Code Description Data Milena rce(s) Supporting Document(s) ID Date Data Source [id number] 02/08/2019 11:25:22 AM EST [facility] Measurements & CalculationsHeight: 65 inches (5 ft. [...] been admitted to the hospital? Yes [facility] you been to an emergency [...] and in the presence of, Dr Scarlett Tongt states that he is just getting out [...] during this visit, including review of any zuhm-iem-ealxvnb medications, herbal therapies, and/or supplements.Allergy ReviewAllergy List [...] Very GoodAssessment & Plan Problems:Assessed:Hepatitis C (ICD-070.70) (CWO16-Y73.20) Assessment: Instructions: Counseled patient on all diagnoses/ treatments. Return to clinic/ ER for any worsening symptoms or concernsOpioid dependence, in remission (ICD10- F11.21) Assessment: Instructions: Counseled patient on all diagnoses/ treatments. Return to clinic/ ER for any worsening symptoms or concernsCont f/u with Dr. Pemberton for inductionNicotine dependence (ICD-305.1) (UPY23-J37.200) Assessment: Instructions: Counseled on tobacco cessation for [...] Orders:Adult - Ofc Vst, EST, Level IV [CPT-89937] Follow-Up Return t o clinic: in 30 days for f/uAdditional Follow-Up: Counseled patient on all diagnoses/ treatments. Return to clinic/ ER for any worsening symptoms or concernsClinical Visit Summary Declined Name Value Range Interpretation Code Description Data Milena rce(s) Supporting Document(s) ID Date Data Source [id number] 01/30/2019 02:59:00 PM [facility] Name Value Range Interpretation Code Description Data Milena rce(s) Supporting Document(s) Opiate Screen,Urine Negative Normal (applies to non-nume courtney results) [facility] Amphetamine Screen,Urine Negative Normal (applies to non -numeric results) [facility] Benzodiazepines Scrn,Ur result Negative N ormal (applies to non-numeric results) [facility] Cocaine Screen,Urine Negative Normal (applies to non-num giles results) [facility] Methadone Screen,Urine Negative Normal (applies to non-n umeric results) [facility] Cannabinoid Screen, Ur Negative Normal (applies to non-n umeric results) [facility] Therapeutic Drug Ranges for Emergency an d [...] treatment purposes only. ID Date Data Source [id number] 01/30/2019 01:30:00 PM [facility] Name: RIVERA LEONE : 1970 A ge/Sex: 48M Ordering Provider: Svetlana SMITH Med Rec #: [id number] Reg Status: ADM IN Room #: 127-1 Date of Service: 01/30/19 Report Number: [id number] cc:Svetlana SMITH Send Report To: [id number] XRP/XR Abdomen 1 View [KUB] Reason for [...] Date/Time: 01/30/19 0825 Transcribed Date/Time: 01/30/19 1330 Director Of Pulmonary Unit: TERE Name Value Range Interpretation Code Description Data Milena rce(s) Supporting Document(s) ID Date Data Source [id number] 02/09/2019 12:41:00 AM [facility] Name Value Range Interpretation Code Description Data Milena rce(s) Supporting Document(s) Buprenorphine+Nor QL,Urine . Very abnormal (appli es to non-numeric units [facility] Confirmation performed by [employer] try Buprenorphine QL,Ur Confirm . Very abnormal (appl ies to non-numeric units [facility] Buprenorphine Qnt,Ur Confirm 40 ng/mL Cutoff=10 Nor mal (applies to non-numeric results) [facility] Norbuprenorphine QL,Ur Cfm . Very abnormal (appli es to non-numeric units [facility] Norbuprenorphine Qnt,Ur Cfm 540 ng/mL Cutoff=10 Norm al (applies to non-numeric results) [facility] Performed at: [facility] [employer] [address] [place] [id number] Mechanical Engineering Professor: Lianet Pruitt MD, Phone: [phone] ID Date Data Source [id number] 01/30/2019 03:39:00 PM [facility] Name Value Range Interpretation Code Description Data Milena rce(s) Supporting Document(s) Bupren Scrn,Ur wRfx LCI SO res Negative [facility] This specimen will be sent out to a [facility] lab for confirmation of positive result. ID Date Data Source [id number] 01/23/2019 01:08:00 AM EST [facility] Name Value Range Interpretation Code Description Data Milena rce(s) Supporting Document(s) HCV RNA Detect/Quant,S result Undetected No rmal (applies to non-numeric results) [facility] Result in log IU/mL is Undetected. ---- ADDITIONAL INFORMATION The quantification range of this assay is 15 to 100,000,000 IU/mL (1.18 log to 8.00 log IU/mL). Testing was performed using the aníbal HCV test ([employer] with the aníbal Zecco0 System. Test Performed by: [place] [address] Mechanical Engineering Professor: Joseph Morales M.D. 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[employer]) Vital Signs ID Date Data Source UNK Name Value Range Interpretation Code Description Data Source(s) Diastolic blood pressure 69.0 MM[HG] 69.0 MM[HG ] [facility]SMART ([facility]) Systolic blood pressure 108.0 MM[HG] 108.0 MM[H G] NETSMART ([employer]) Oxygen saturation in Arterial blood by Pulse oximetry 98.0 % 98.0 % NETSMART ([employer]) Respiratory rate 18.0 /MIN 18.0 /MIN NETSMART ([employer]) Heart rate 121.0 /MIN 121.0 /MIN NETSMART ([facility]) Body temperature 37.2 ESTUARDO 37.2 ESTUARDO NETSMART ([facility]) Body temperature 98.9 [DEGF] 98.9 [DEGF] NETSMA RT ([employer]) Diastolic blood pressure 66.0 MM[HG] 66.0 MM[HG ] [employer]SMART ([employer]) Systolic blood pressure 102.0 MM[HG] 102.0 MM[H G] [facility]SMART ([facility]) Respiratory rate 12.0 /MIN 12.0 /MIN [...] RT ([facility]) ID Date Data Source [id number] 03/03/2020 11:36:00 AM EST [facility] Name Value Range Interpretation Code Description Data Source(s) Weight (Calculated Kilograms) 64.86 64.86 [facility] Height (Calculated Centimeters) 165.1 165. 1 [facility] Body Mass Index (BMI) 23.8 23.8 [facility] ID Date Data Source [id number] 03/11/2020 11:52:00 AM [facility] Name Value Range Interpretation Code Description Data Source(s) Weight Measurement Method 1 1 [facility] Weight (Calculated Kilograms) 64.86 64.86 [facility] Weight 2288 2288 [facility] Temperature Source 7 7 [facility] Temperature 98.2 98.2 [facility] Respiratory Effort 1 1 [facility] Respiratory Rate 16 16 [facility] Pulse Assessment Method 4 4 [facility] Pulse Rate 68 68 [facility] Height (Calculated Centimeters) 165.1 165. 1 [facility] Height 65 65 [facility] Blood Pressure 123/83 123/83 [facility] Body Mass Index (BMI) 23.8 23.8 [facility] Weight Measurement Method 1 1 [facility] Weight (Calculated Kilograms) 64.86 64.86 [facility] Weight 2288 2288 [facility] Temperature Source 7 7 [facility] Temperature 98.2 98.2 [facility] Respiratory Effort 1 1 [facility] Respiratory Rate 16 16 [facility] Pulse Assessment Method 4 4 [facility] Pulse Rate 68 68 [facility] Height (Calculated Centimeters) 165.1 165. 1 [facility] Height 65 65 [facility] Blood Pressure 123/83 123/83 [facility] Body Mass Index (BMI) 23.8 23.8 [facility] Weight (Calculated Kilograms) 57.61 57.61 [facility] Height (Calculated Centimeters) 165.1 165. 1 [facility] Body Mass Index (BMI) 21.1 21.1 [facility] ID Date Data Source [id number] 12/30/2019 03:25:09 PM EDT [facility] Name Value Range Interpretation Code Description Data Source(s) TRANSFER FROM [facility] ID Date Data Source [id number] 11/20/2019 07:16:00 PM EDT [facility] Name Value Range Interpretation Code Description Data Source(s) Weight (Calculated Kilograms) 57.61 57.61 [facility] Height (Calculated Centimeters) 165.1 165. 1 [facility] Body Mass Index (BMI) 21.1 21.1 [facility] ID Date Data Source [id number] 11/19/2019 02:46:00 PM EDT [facility] Name Value Range Interpretation Code Description Data Source(s) Weight (Calculated Kilograms) 57.61 57.61 [facility] Height (Calculated Centimeters) 165.1 165. 1 [facility] Body Mass Index (BMI) 21.1 21.1 [facility] ID Date Data Source [id number] 11/26/2019 09:53:00 AM EDT [facility] Name Value Range Interpretation Code Description Data Source(s) Weight Measurement Method 1 1 [facility] Weight (Calculated Kilograms) 58.20 58.20 [facility] Weight 2051.8 2051. [facility] pital Temperature Source 7 7 [facility] Temperature 98.0 98.0 [facility] spital Respiratory Effort 1 1 [facility] Respiratory Rate 18 18 [facility] Pulse Assessment Method 4 4 [facility] Pulse Rate 74 74 [facility] pital Height (Calculated Centimeters) 165.1 165. 1 [facility] [facility] Height 65 65 [facility] pital Blood Pressure 96/60 96/60 [facility] Body Mass Index (BMI) 21.3 21.3 [facility] Weight Measurement Method 1 1 [facility] Weight (Calculated Kilograms) 58.20 58.20 [facility] Weight 2051.8 2051.8 [facility] pital Temperature Source 7 7 [facility] Temperature 98.0 98.0 [facility] spital Respiratory Effort 1 1 [facility] Respiratory Rate 18 18 [facility] Pulse Assessment Method 4 4 [facility] Pulse Rate 74 74 [facility] pital Height (Calculated Centimeters) 165.1 165. 1 [facility] Height 65 65 [facility] pital Blood Pressure 96/60 96/60 [facility] Body Mass Index (BMI) 21.3 21.3 [facility] Weight Measurement Method 1 1 [facility] Weight (Calculated Kilograms) 58.20 58.20 [facility] Weight 2051.8 2051.8 [facility] pital Temperature Source 7 7 [facility].0 [facility] 1 1 [facility] Respiratory Rate 18 18 [facility] Pulse Assessment Method 4 4 [facility] Pulse Rate 74 74 [facility] pital Height (Calculated Centimeters) 165.1 165. 1 [facility] Height 65 65 [facility] pital Blood Pressure 96/60 96/60 [facility] Body Mass Index (BMI) 21.3 21.3 [facility] Weight Measurement Method 1 1 [facility] Weight (Calculated Kilograms) 58.20 58.20 [facility] Weight 2051.8 2051.8 [facility] pital Temperature Source 7 7 [facility] Temperature 96.9 96.9 [employer] [facility] spital Respiratory Effort 1 1 [facility] Respiratory Rate 18 18 [facility] Pulse Assessment Method 4 4 [facility] Pulse Rate 68 68 [facility] pital Height (Calculated Centimeters) 165.1 165. 1 [facility] 102/70 102/70 [facility] Body Mass Index (BMI) 21.3 21.3 [facility] Weight Measurement Method 1 1 [facility] Weight (Calculated Kilograms) 58.20 58.20 [facility] Weight 2051.8 2051.8 [facility] pital Temperature Source 7 7 [facility] 97.6 97[facility]6 [facility] Res[facility] Effort 1 1 [facility] Respiratory Rate 18 18 [facility] Pulse Assessment Method 4 4 [facility] Pulse Rate 85 85 [facility] pital Height (Calculated Centimeters) 165.1 165. 1 [facility] 65 [facility] 129/72 129/72 [facility] Body Mass Index (BMI) 21.3 21.3 [facility] Weight Measurement Method 1 1 [facility] Weight (Calculated Kilograms) 58.20 58.20 [facility] Weight 2051.8 2051.8 [facility] pital Temperature Source 7 7 [facility] Temperature 98.2 98.2 [facility] Respiratory Effort 1 1 [facility] Respiratory Rate 18 18 [facility] Pulse Assessment Method 4 4 [facility] Pulse Rate 80 80 [facility] pital Height (Calculated Centimeters) 165.1 165. 1 [facility] Height 65 65 [facility] pital Blood Pressure 110/72 110/72 [facility] Body Mass Index (BMI) 21.3 21.3 [facility] Weight Measurement Method 1 1 [facility] Weight (Calculated Kilograms) 58.20 58.20 [facility] Weight 2052.8 2052.8 [facility] pital Temperature Source 7 7 [facility] Temperature 98.2 98.2 [facility] spital Respiratory Effort 1 1 [facility] Respiratory Rate 18 18 [facility] Pulse Assessment Method 4 4 [facility] P[facility] 85 85 [facility] (Calculated Cent[facility]) 165.1 165. 1 [facility] Height 65 65 [facility] pital Blood Pressure 121/86 121/86 [facility] Body Mass Index (BMI) 21.3 21.3 [facility] Weight (Calculated Kilograms) 57.42 57.42 [facility] Height (Calculated Centimeters) 165.1 165. 1 [facility] Body Mass Index (BMI) 21.0 21.0 [facility] ID Date Data Source [id number] 10/08/2019 11:47:00 AM EDT [facility] Name Value Range Interpretation Code Description Data Source(s) Weight Measurement Method 1 1 [facility] Weight (Calculated Kilograms) 57.61 57.61 [facility] Weight 2054.4 2054.4 [facility] Temperature Source 7 7 [facility] Temperature 98.6 98.6 [facility] Respiratory Effort 1 1 [facility] Respiratory Rate 18 18 [facility] Pulse Assessment Method 4 4 [facility] Pulse Rate 65 65 [facility] Height (Calculated Centimeters) 165.1 165. 1 [facility] Height 65 65 [facility] Blood Pressure 90/65 90/65 [facility] Body Mass Index (BMI) 21.1 21.1 [facility] Weight Measurement Method 1 1 [facility] Weight (Calculated Kilograms) 57.61 57.61 [facility] Weight 2054.4 2054.4 [facility] Temperature Source 7 7 [facility] Temperature 98.6 98.6 [facility] Respiratory Effort 1 1 [facility] Respiratory Rate 18 18 [facility] Pulse Assessment Method 4 4 [facility] Pulse Rate 65 65 [facility] Height (Calculated Centimeters) 165.1 165. 1 [facility] Height 65 65 [facility] Blood Pressure 90/65 90/65 [facility] Body Mass Index (BMI) 21.1 21.1 [facility] Weight Measurement Method 1 1 [facility] Weight (Calculated Kilograms) 57.61 57.61 [facility] Weight 2054.4 2054.4 [facility] Temperature Source 7 7 [facility] Temperature 98.6 98.6 [facility] Respiratory Effort 1 1 [facility] Respiratory Rate 18 18 [facility] Pulse Assessment Method 4 4 [facility] Pulse Rate 65 65 [facility] Height (Calculated Centimeters) 165.1 165. 1 [facility] Height 65 65 [facility] Blood Pressure 90/65 90/65 [facility] Body Mass Index (BMI) 21.1 21.1 [facility] Weight (Calculated Kilograms) 57.61 57.61 [facility] Height (Calculated Centimeters) 165.1 165. 1 [facility] Body Mass Index (BMI) 21.1 21.1 [facility] Weight (Calculated Kilograms) 57.61 57.61 [facility] Height (Calculated Centimeters) 165.1 165. 1 [facility] Body Mass Index (BMI) 21.1 21.1 [facility] Weight (Calculated Kilograms) 57.61 57.61 [facility] Height (Calculated Centimeters) 165.1 165. 1 [facility] Body Mass Index (BMI) 21.1 21.1 [facility] ID Date Data Source [id number] 10/01/2019 12:13:00 AM EDT [facility] Name Value Range Interpretation Code Description Data Source(s) Weight Measurement Method 1 1 [facility] Weight (Calculated Kilograms) 57.61 57.61 [facility] Weight 2031 2031 [facility] Temperature Source 7 7 [facility] Temperature 98.3 98.3 [facility] Respiratory Effort 1 1 [facility] Respiratory Rate 16 16 [facility] Pulse Assessment Method 4 4 [facility] Pulse Rate 55 55 [facility] Height (Calculated Centimeters) 165.1 165. 1 [facility] Height 65 65 [facility] Blood Pressure 102/66 102/66 [facility] Body Mass Index (BMI) 21.1 21.1 [facility] Weight Measurement Method 1 1 [facility] Weight (Calculated Kilograms) 57.61 57.61 [facility] Weight 2031 2031 [facility] Temperature Source 7 7 [facility] Temperature 98.3 98.3 [facility] Respiratory Effort 1 1 [facility] Respiratory Rate 16 16 [facility] Pulse Assessment Method 4 4 [facility] Pulse Rate 55 55 [facility] Height (Calculated Centimeters) 165.1 165. 1 [facility] Height 65 65 [facility] Blood Pressure 102/66 102/66 [facility] Body Mass Index (BMI) 21.1 21.1 [facility] Weight Measurement Method 1 1 [facility] Weight (Calculated Kilograms) 57.61 57.61 [facility] Weight 2031 2031 [facility] Temperature Source 7 7 [facility] Temperature 98.3 98.3 [facility] Respiratory Effort 1 1 [facility] Respiratory Rate 16 16 [facility] Pulse Assessment Method 4 4 [facility] Pulse Rate 55 55 [facility] Height (Calculated Centimeters) 165.1 165. 1 [facility] Height 65 65 [facility] Blood Pressure 102/66 102/66 [facility] Body Mass Index (BMI) 21.1 21.1 [facility] Weight Measurement Method 1 1 [facility] Weight (Calculated Kilograms) 57.61 57.61 [facility] Weight 2031 2031 [facility] Temperature Source 7 7 [facility] Temperature 97.6 97.6 [facility] Respiratory Effort 1 1 [facility] Respiratory Rate 16 16 [facility] Pulse Assessment Method 4 4 [facility] Pulse Rate 66 66 [facility] Height (Calculated Centimeters) 165.1 165. 1 [facility] Height 65 65 [facility] Blood Pressure 88/59 88/59 [facility] Body Mass Index (BMI) 21.1 21.1 [facility] Weight Measurement Method 1 1 [facility] Weight (Calculated Kilograms) 57.61 57.61 [facility] Weight 2031 2031 [facility] Temperature Source 7 7 [facility] Temperature 97.6 97.6 [facility] Respiratory Effort 1 1 [facility] Respiratory Rate 16 16 [facility] Pulse Assessment Method 4 4 [facility] Pulse Rate 65 65 [facility] Height (Calculated Centimeters) 165.1 165. 1 [facility] Height 65 65 [facility] Blood Pressure 117/84 117/84 [facility] Body Mass Index (BMI) 21.1 21.1 [facility] Weight Measurement Method 1 1 [facility] Weight (Calculated Kilograms) 57.61 57.61 [facility] Weight 2031 2031 [facility] Temperature 98 98 [facility] Respiratory Effort 1 1 [facility] Respiratory Rate 16 16 [facility] Pulse Rate 98 98 [facility] Height (Calculated Centimeters) 165.1 165. 1 [facility] Height 65 65 [facility] Blood Pressure 143/92 143/92 [facility] Body Mass Index (BMI) 21.1 21.1 [facility] Weight (Calculated Kilograms) 56.70 56.70 [facility] Height (Calculated Centimeters) 165.1 165. 1 [facility] Body Mass Index (BMI) 20.7 20.7 [facility] ID Date Data Source [id number] 09/12/2019 03:41:00 PM EDT [facility] Name Value Range Interpretation Code Description Data Source(s) Weight (Calculated Kilograms) 56.70 56.70 [facility] Height (Calculated Centimeters) 165.1 165. 1 [facility] Body Mass Index (BMI) 20.7 20.7 [facility] ID Date Data Source [id number] 09/13/2019 03:52:00 PM EDT [facility] Name Value Range Interpretation Code Description Data Source(s) Weight (Calculated Kilograms) 56.70 56.70 [facility] Height (Calculated Centimeters) 165.1 165. 1 [facility] Body Mass Index (BMI) 20.7 20.7 [facility] ID Date Data Source [id number] 09/18/2019 10:51:00 AM EDT [facility] spital Name Value Range Interpretation Code Description Data Source(s) Weight (Calculated Kilograms) 57.42 57.42 [facility] Weight 2015 2015 [facility] pital Temperature Source 7 7 [facility] Temperature 98.2 98.2 [facility] spital Respiratory Effort 1 1 [facility] Respiratory Rate 20 20 [facility] Pulse Assessment Method 4 4 [facility] Pulse Rate 85 85 [facility] Height (Calculated Centimeters) 165.1 165. 1 [facility] Height 65 65 [facility] Blood Pressure 125/81 125/81 [facility] Body Mass Index (BMI) 21.0 21.0 [facility] Weight (Calculated Kilograms) 57.42 57.42 [facility] Weight 2015 2015 [facility] Source 7 7 [facility] Temperature 98.2 98.2 [facility] spital Respiratory Effort 1 1 [facility] Respiratory Rate 20 20 [facility] Pulse Assessment Method 4 4 [facility] Pulse Rate 85 85 [facility] pital Height (Calculated Centimeters) 165.1 165. 1 [facility] Height 65 65 [facility] Blood [facility] 125/81 125/81 [facility] Body Mass Index (BMI) 21.0 21.0 [facility] Weight (Calculated Kilograms) 57.42 57.42 [facility] Weight 2015 2015 [facility] pital Temperature Source 7 7 [facility] Temperature 98.2 98.2 [facility] spital Respiratory Effort 1 1 [facility] Respiratory Rate 20 20 [facility] Pulse Assessment Method 4 4 [facility] Pulse Rate 85 85 [facility] pital Height (Calculated Centimeters) 165.1 165. 1 [facility] Height 65 65 [facility] Blood [facility] 125/81 125/81 [facility] Body Mass Index (BMI) 21.0 21.0 [facility] Weight (Calculated Kilograms) 57.42 57.42 [facility] Weight 2015 2015 [facility] pital Temperature Source 7 7 [facility] Temperature 99 99 [facility] spital Respiratory Effort 1 1 [facility] Respiratory Rate 18 18 [facility] Pulse Assessment Method 4 4 [facility] Pulse Rate 81 81 [facility] pital Height (Calculated Centimeters) 165.1 165. 1 [facility] 65 65 [facility] 123/81 123/81 [facility] Body Mass Index (BMI) 21.0 21.0 [facility] Weight (Calculated Kilograms) 57.42 57.42 [facility] Weight 2024.6 2024.6 [facility] pital Temperature Source 3 3 [facility] Temperature 98.4 98.4 [facility] spital Respiratory Effort 1 1 [facility] Respiratory Rate 20 20 [facility] Pulse Assessment Method 1 1 [facility] Pulse Rate 98 98 [facility] pital Height (Calculated Centimeters) 165.1 165. 1 [facility] 65 65 [facility] 160/113 160/113 [facility] Body Mass Index (BMI) 21.0 21.0 [facility] Weight (Calculated Kilograms) 58.79 58.79 [facility] Height (Calculated Centimeters) 165.1 165. 1 [facility] Body Mass Index (BMI) 21.5 21.5 [facility] ID Date Data Source [id number] 05/03/2019 12:15:00 PM EST [facility] Name Value Range Interpretation Code Description Data Source(s) Weight Measurement Method 1 1 [facility] Weight (Calculated Kilograms) 56.70 56.70 [facility] Weight 2120.0 2120.0 [facility] Temperature Source 7 7 [facility] Temperature 98.3 98.3 [facility] Respiratory Effort 1 1 [facility] Respiratory Rate 18 18 [facility] Pulse Assessment Method 4 4 [facility] Pulse Rate 87 87 [facility] Height (Calculated Centimeters) 165.1 165. 1 [facility] Height 65 65 [facility] Blood Pressure 97/70 97/70 [facility] Body Mass Index (BMI) 20.7 20.7 [facility] Weight Measurement Method 1 1 [facility] Weight (Calculated Kilograms) 56.70 56.70 [facility] Weight 2120.0 2120.0 [facility] Temperature Source 7 7 [facility] Temperature 98.3 98.3 [facility] Respiratory Effort 1 1 [facility] Respiratory Rate 18 18 [facility] Pulse Assessment Method 4 4 [facility] Pulse Rate 87 87 [facility] Height (Calculated Centimeters) 165.1 165. 1 [facility] Height 65 65 [facility] Blood Pressure 97/70 97/70 [facility] Body Mass Index (BMI) 20.7 20.7 [facility] Weight Measurement Method 1 1 [facility] Weight (Calculated Kilograms) 56.70 56.70 [facility] Weight 2120.0 2120.0 [facility] Temperature Source 7 7 [facility] Temperature 98.3 98.3 [facility] Respiratory Effort 1 1 [facility] Respiratory Rate 18 18 [facility] Pulse Assessment Method 4 4 [facility] Pulse Rate 87 87 [facility] Height (Calculated Centimeters) 165.1 165. 1 [facility] Height 65 65 [facility] Blood Pressure 97/70 97/70 [facility] Body Mass Index (BMI) 20.7 20.7 [facility] Weight Measurement Method 1 1 [facility] Weight (Calculated Kilograms) 56.70 56.70 [facility] Weight 1999 1999 [facility] Temperature Source 7 7 [facility] Temperature 98.0 98.0 [facility] Respiratory Effort 1 1 [facility] Respiratory Rate 16 16 [facility] Pulse Assessment Method 4 4 [facility] Pulse Rate 61 61 [facility] Height (Calculated Centimeters) 165.1 165. 1 [facility] Height 65 65 [facility] Blood Pressure 109/66 109/66 [facility] Body Mass Index (BMI) 20.7 20.7 [facility] Weight Measurement Method 1 1 [facility] Weight (Calculated Kilograms) 56.70 56.70 [facility] Weight 1999 1999 [facility] Temperature Source 3 3 [facility] Temperature 97.8 97.8 [facility] Respiratory Effort 1 1 [facility] Respiratory Rate 16 16 [facility] Pulse Assessment Method 4 4 [facility] Pulse Rate 64 64 [facility] Height (Calculated Centimeters) 165.1 165. 1 [facility] Height 65 65 [facility] Blood Pressure 139/77 139/77 [facility] Body Mass Index (BMI) 20.7 20.7 [facility] Weight (Calculated Kilograms) 58.51 58.51 [facility] Height (Calculated Centimeters) 165.1 165. 1 [facility] Body Mass Index (BMI) 21.4 21.4 [facility] ID Date Data Source [id number] 02/01/2020 12:13:00 AM EST [facility] Name Value Range Interpretation Code Description Data Source(s) Weight Measurement Method 1 1 [facility] Weight (Calculated Kilograms) 58.51 58.51 [facility] Weight 2128 2128 [facility] Temperature Source 7 7 [facility] Temperature 97.7 97.7 [facility] Respiratory Effort 1 1 [facility] Respiratory Rate 16 16 [facility] Pulse Assessment Method 4 4 [facility] Pulse Rate 70 70 [facility] Height (Calculated Centimeters) 165.1 165. 1 [facility] Height 65 65 [facility] Blood Pressure 105/74 105/74 [facility] Body Mass Index (BMI) 21.4 21.4 [facility] Weight Measurement Method 1 1 [facility] Weight (Calculated Kilograms) 58.51 58.51 [facility] Weight 8 8 [facility] Temperature Source 7 7 [facility] Temperature 97.7 97.7 [facility] Respiratory Effort 1 1 [facility] Respiratory Rate 16 16 [facility] Pulse Assessment Method 4 4 [facility] Pulse Rate 70 70 [facility] Height (Calculated Centimeters) 165.1 165. 1 [facility] Height 65 65 [facility] Blood Pressure 105/74 105/74 [facility] Body Mass Index (BMI) 21.4 21.4 [facility] Weight Measurement Method 1 1 [facility] Weight (Calculated Kilograms) 58.51 58.51 [facility] Weight 21278 [facility] Temperature Source 7 7 [facility] Temperature 97.7 97.7 [facility] Respiratory Effort 1 1 [facility] Respiratory Rate 16 16 [facility] Pulse Assessment Method 4 4 [facility] Pulse Rate 70 70 [facility] Height (Calculated Centimeters) 165.1 165. 1 [facility] Height 65 65 [facility] Blood Pressure 105/74 105/74 [facility] Body Mass Index (BMI) 21.4 21.4 [facility] Weight Measurement Method 1 1 [facility] Weight (Calculated Kilograms) 58.51 58.51 [facility] Weight 2144.0 2144.0 [facility] Temperature Source 7 7 [facility] Temperature 96.8 96.8 [facility] Respiratory Effort 1 1 [facility] Respiratory Rate 15 15 [facility] Pulse Assessment Method 4 4 [facility] Pulse Rate 88 88 [facility] Height (Calculated Centimeters) 165.1 165. 1 [facility] Height 65 65 [facility] Blood Pressure 122/89 122/89 [facility] Body Mass Index (BMI) 21.4 21.4 [facility] Weight (Calculated Kilograms) 58.51 58.51 [facility] Weight 2063 2063 [facility] Temperature Source 7 7 [facility] Temperature 98.0 98.0 [facility] Respiratory Effort 1 1 [facility] Respiratory Rate 16 16 [facility] Pulse Assessment Method 4 4 [facility] Pulse Rate 69 69 [facility] Height (Calculated Centimeters) 165.1 165. 1 [facility] Height 65 65 [facility] Blood Pressure 118/79 118/79 [facility] Body Mass Index (BMI) 21.4 21.4 [facility]
[2020-03-18 22:08] LABS: HEMATOCRIT 46.5 % (42.0-52.0); HEMOGLOBIN 15.5 g/dl (13.5-17.5); MEAN CORPUSCULAR HEMOGLOBIN 28.5 pg (27.0-33.0); MEAN CORPUSCULAR HGB CONC 33.3 g/dl (32.0-36.5); MEAN CORPUSCULAR VOLUME 85.5 fl (80.0-96.0); PLATELET COUNT, AUTOMATED 417 10^3/uL (150-450); RED BLOOD COUNT 5.44 10^6/uL (4.30-6.10); WHITE BLOOD COUNT 8.4 10^3/uL (4.0-10.0)
[2020-03-18] MEDS ORDERED: LORazepam 2 MG TAB PO ONE (22:15)
[2020-03-18 22:43] LABS: AMPHETAMINES LEVEL URINE NEGATIVE (NEGATIVE); BARBITURATES URINE NEGATIVE (NEGATIVE); BENZODIAZEPINES URINE NEGATIVE (NEGATIVE); CANNABINOIDS URINE NEGATIVE (NEGATIVE); COCAINE METABOLITE URINE NEGATIVE (NEGATIVE); METHADONE URINE NEGATIVE (NEGATIVE); OPIATES URINE NEGATIVE (NEGATIVE); PHENCYCLIDINE URINE NEGATIVE (NEGATIVE)
[2020-03-18 23:21] LABS: ACETAMINOPHEN LEVEL < 2.0 UG/ML (10.0-30.0); ALBUMIN 4.2 GM/DL (3.2-5.2); ALT/SGPT 168 U/L (12-78); BILIRUBIN,DIRECT 0.3 MG/DL (0.0-0.2); BLOOD UREA NITROGEN 12 MG/DL (7-18); CALCIUM LEVEL 9.4 MG/DL (8.5-10.1); CARBON DIOXIDE LEVEL 27 MEQ/L (21-32); CHLORIDE LEVEL 101 MEQ/L (98-107); CREATININE FOR GFR 1.13 MG/DL (0.70-1.30); ETHYL ALCOHOL (ETHANOL) < 0.003 % (0.000-0.010); GLOMERULAR FILTRATION RATE > 60.0 (>60); GLUCOSE, FASTING 86 MG/DL (70-100); POTASSIUM SERUM 3.7 MEQ/L (3.5-5.1); SALICYLATE LEVEL < 1.7 MG/DL (5.0-30.0); SODIUM LEVEL 135 MEQ/L (136-145); TOTAL PROTEIN 8.1 GM/DL (6.4-8.2)
[2020-03-18] MEDS ORDERED: BUPR150T4 PO (23:32)
[2020-03-18] MEDS ORDERED: SERT50TA29 PO (23:32)
[2020-03-18] MEDS ORDERED: FLOM0.4C39 PO (23:32)
[2020-03-18] MEDS ORDERED: FLON1SPR (23:32)
[2020-03-18] MEDS ORDERED: SUBO8MIS SL (23:32)
[2020-03-18] MEDS ORDERED: DOCU100C16 PO (23:32)
[2020-03-18] MEDS ORDERED: PANT40TA29 PO (23:32)
[2020-03-18] MEDS ORDERED: TRAZ-257 PO (23:32)
[2020-03-18] MEDS ORDERED: QUET100T2 PO (23:32)
[2020-03-18] MEDS ORDERED: ALBU8.5H INH (23:32)
[2020-03-18] MEDS ORDERED: D31000TA2 PO (23:32)
[2020-03-19] MEDS ORDERED: traZODone 100 MG TAB PO ONE (00:15)
[2020-03-19 00:49] LABS: RSV AMPLIFICATION NEGATIVE (NEGATIVE)
[2020-03-19 06:04] VITALS: BP 98/72
--- NOTE | 2020-03-19 08:29 | ECGEPIP ---
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
== END 2020-03-19 06:12 ==
LOC: M ED 20:47
DX: T14.91XA Suicide attempt, initial encounter (principal); F17.200 Nicotine dependence, unspecified, uncomplicated; F16.10 Hallucinogen abuse, uncomplicated; F19.10 Other psychoactive substance abuse, uncomplicated; Z79.51 Long term (current) use of inhaled steroids; Z79.899 Other long term (current) drug therapy
CPT/HCPCS: 80048; 80076; 80307; 84443; 85027; 87631; 93005; 99284; G0480

== ENCOUNTER 2020-03-27 13:33 | Emergency (ER) | payer OTHER ==
[~2020-03-27] VITALS: Ht 165.1 cm; Wt 59.1 kg
[~2020-03-27 13:33] MED LIST changes: +ALBU8.5H INH; +D31000TA2 PO; +DOCU100C16 PO; +FLON1SPR; +SERT50TA29 PO
[2020-03-27] MEDS ORDERED: ZOLO100T PO (14:07)
[2020-03-27] MEDS ORDERED: HYDR-3363 PO (14:07)
[2020-03-27] MEDS ORDERED: QUET200T2 PO (14:07)
[2020-03-27 16:11] LABS: AMPHETAMINES LEVEL URINE NEGATIVE (NEGATIVE); BARBITURATES URINE NEGATIVE (NEGATIVE); BENZODIAZEPINES URINE NEGATIVE (NEGATIVE); CANNABINOIDS URINE NEGATIVE (NEGATIVE); COCAINE METABOLITE URINE NEGATIVE (NEGATIVE); METHADONE URINE NEGATIVE (NEGATIVE); OPIATES URINE NEGATIVE (NEGATIVE); PHENCYCLIDINE URINE NEGATIVE (NEGATIVE)
[2020-03-27 16:32] LABS: HEMATOCRIT 46.2 % (42.0-52.0); HEMOGLOBIN 15.8 g/dl (13.5-17.5); MEAN CORPUSCULAR HEMOGLOBIN 28.5 pg (27.0-33.0); MEAN CORPUSCULAR HGB CONC 34.2 g/dl (32.0-36.5); MEAN CORPUSCULAR VOLUME 83.2 fl (80.0-96.0); PLATELET COUNT, AUTOMATED 475 10^3/uL (150-450); RED BLOOD COUNT 5.55 10^6/uL (4.30-6.10); WHITE BLOOD COUNT 15.8 10^3/uL (4.0-10.0)
[2020-03-27] MEDS ORDERED: diphenhydrAMINE 50MG/ML VIAL (J1200) IM ONE (17:00)
[2020-03-27] MEDS ORDERED: HALOPERIDOL 5MG/ML VIAL (J1630 PER 1) IM ONE (17:00)
[2020-03-27] MEDS ORDERED: LORazepam 2 MG/ML VIAL IM ONE (17:00)
[2020-03-27 17:12] LABS: ACETAMINOPHEN LEVEL < 2.0 UG/ML (10.0-30.0); ALBUMIN 4.7 GM/DL (3.2-5.2); ALT/SGPT 201 U/L (12-78); BILIRUBIN,DIRECT 0.3 MG/DL (0.0-0.2); BILIRUBIN,TOTAL 1.3 MG/DL (0.2-1.0); BLOOD UREA NITROGEN 24 MG/DL (7-18); CALCIUM LEVEL 10.5 MG/DL (8.5-10.1); CARBON DIOXIDE LEVEL 26 MEQ/L (21-32); CHLORIDE LEVEL 100 MEQ/L (98-107); CREATININE FOR GFR 1.48 MG/DL (0.70-1.30); ETHYL ALCOHOL (ETHANOL) < 0.003 % (0.000-0.010); GLOMERULAR FILTRATION RATE 53.8 (>60); GLUCOSE, FASTING 96 MG/DL (70-100); POTASSIUM SERUM 4.5 MEQ/L (3.5-5.1); SALICYLATE LEVEL < 1.7 MG/DL (5.0-30.0); SODIUM LEVEL 137 MEQ/L (136-145); TOTAL PROTEIN 8.6 GM/DL (6.4-8.2)
--- NOTE | 2020-03-27 21:06 | ECGEPIP ---
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
[2020-03-28 12:35] LABS: RSV AMPLIFICATION NEGATIVE (NEGATIVE)
[2020-03-28 20:27] VITALS: BP 109/72
--- NOTE | 2020-03-29 08:10 | ECGEPIP ---
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
== END 2020-03-28 20:44 ==
LOC: M ED 13:33 → EDBD 13:33 → M ED 03-28 20:44
DX: F29 Unspecified psychosis not due to a substance or known physiological condition (principal); R94.5 Abnormal results of liver function studies; F33.9 Major depressive disorder, recurrent, unspecified; F19.10 Other psychoactive substance abuse, uncomplicated; Z79.899 Other long term (current) drug therapy; Z79.891 Long term (current) use of opiate analgesic; F17.210 Nicotine dependence, cigarettes, uncomplicated
CPT/HCPCS: 36415; 80048; 80076; 80307; 84443; 85027; 87631; 93005; 96372; 99285; G0480; J1200; J1630; J2060

== ENCOUNTER 2020-05-30 16:19 | Inpatient (IN) | payer MEDICAID, OTHER ==
[~2020-05-30] VITALS: Ht 165.1 cm; Wt 54.4 kg
[~2020-05-30 16:19] MED LIST changes: +BUPR150T12 PO; -BUPR150T4 PO; -LISI-542 PO; +LISI-898 PO; -QUET1TAB10 PO; +QUET300T2 PO; +QUET50TA3 PO; -QUET5TAB PO
[2020-05-30 17:23] LABS: HEMATOCRIT 43.1 % (42.0-52.0); HEMOGLOBIN 15.3 g/dl (13.5-17.5); MEAN CORPUSCULAR HEMOGLOBIN 29.5 pg (27.0-33.0); MEAN CORPUSCULAR HGB CONC 35.5 g/dl (32.0-36.5); MEAN CORPUSCULAR VOLUME 83.2 fl (80.0-96.0); PLATELET COUNT, AUTOMATED 652 10^3/uL (150-450); RED BLOOD COUNT 5.18 10^6/uL (4.30-6.10); WHITE BLOOD COUNT 14.1 10^3/uL (4.0-10.0)
[2020-05-30] MEDS ORDERED: LORazepam 2 MG TAB PO ONE ×2 (17:30→19:45)
[2020-05-30] MEDS ORDERED: LORazepam 2 MG/ML VIAL As Ordered ONE (17:39)
[2020-05-30 17:48] LABS: AMPHETAMINES LEVEL URINE NEGATIVE (NEGATIVE); BARBITURATES URINE NEGATIVE (NEGATIVE); BENZODIAZEPINES URINE NEGATIVE (NEGATIVE); CANNABINOIDS URINE NEGATIVE (NEGATIVE); COCAINE METABOLITE URINE NEGATIVE (NEGATIVE); METHADONE URINE POSITIVE (NEGATIVE); OPIATES URINE NEGATIVE (NEGATIVE); PHENCYCLIDINE URINE NEGATIVE (NEGATIVE)
[2020-05-30 17:56] LABS: ACETAMINOPHEN LEVEL < 2.0 UG/ML (10.0-30.0); ALBUMIN 4.4 GM/DL (3.2-5.2); ALT/SGPT 109 U/L (12-78); BILIRUBIN,DIRECT 0.3 MG/DL (0.0-0.2); BILIRUBIN,TOTAL 1.1 MG/DL (0.2-1.0); BLOOD UREA NITROGEN 9 MG/DL (7-18); CALCIUM LEVEL 9.8 MG/DL (8.5-10.1); CARBON DIOXIDE LEVEL 25 MEQ/L (21-32); CHLORIDE LEVEL 98 MEQ/L (98-107); CREATININE FOR GFR 0.99 MG/DL (0.70-1.30); ETHYL ALCOHOL (ETHANOL) < 0.003 % (0.000-0.010); GLOMERULAR FILTRATION RATE > 60.0 (>60); GLUCOSE, FASTING 100 MG/DL (70-100); POTASSIUM SERUM 4.2 MEQ/L (3.5-5.1); SALICYLATE LEVEL < 1.7 MG/DL (5.0-30.0); SODIUM LEVEL 132 MEQ/L (136-145); TOTAL PROTEIN 8.2 GM/DL (6.4-8.2)
[2020-05-30] MEDS ORDERED: METOPROLOL TART 50 MG TAB PO ONE (18:45)
[2020-05-30 19:50] VITALS: BP 155/55
[2020-05-30] MEDS ORDERED: diphenhydrAMINE 25MG CAP PO ONE (22:35)
[2020-05-30] MEDS ORDERED: haloperidoL 5 MG TAB PO ONE (22:35)
[2020-05-31] MEDS ORDERED: OLANZapine INTRAMUSCULAR 10MG VIAL IM ONE (00:10)
[2020-05-31] MEDS ORDERED: SERTRALINE 100 MG TAB PO ONE (09:50)
[2020-05-31] MEDS ORDERED: TAMSULOSIN 0.4 MG CAP PO ONE (09:50)
[2020-05-31] MEDS ORDERED: PANTOPRAZOLE 40MG TAB (PROTONIX) PO ONE ×2 (09:50→21:00)
[2020-05-31] MEDS: buPROPion **XL** TABLET 150MG (WELLBUTRIN XL) PO SCH (10:53)
[2020-05-31] MEDS ORDERED: QUEtiapine FUMARATE 200 MG TAB PO ONE (21:00)
[2020-05-31] MEDS ORDERED: traZODone 100 MG TAB PO ONE (21:00)
[2020-06-01] MEDS: buPROPion **XL** TABLET 150MG (WELLBUTRIN XL) PO SCH (09:49)
[2020-06-01 13:32] LABS: RSV AMPLIFICATION NEGATIVE (NEGATIVE)
[2020-06-01] MEDS ORDERED: MOM 30ML SUSPENSION UDC PO PRN (14:20)
[2020-06-01] MEDS ORDERED: ACETAMINOPHEN TAB 650MG DOSE (2X325MG) PO PRN (14:20)
[2020-06-01] MEDS ORDERED: MAALOX 30 ML SUSP *UDC PO PRN (14:20)
[2020-06-01] MEDS ORDERED: traZODone 50 MG TAB PO PRN (14:20)
[2020-06-01 15:50] VITALS: BP 122/80
--- NOTE | 2020-06-01 19:51 | ECGEPIP ---
[facility] - ED Test Date: 2020-05-31 Pat Name: RIVERA CARROLL Department: Room: - Gender: Male Clinical Pharmacy Specialist: BARBARA : 1970 Requested By: Ulises Nieves Order Number: [id number] Reading MD: Dori Tran Measurements Intervals [place] Rate: 68 P: 53 [place]: 132 QRS: -12 QRSD: 80 T: 50 QT: 384 QTc: 408 Interpretive Statements Normal sinus rhythm similar 03/28/20 Electronically Signed on 06-01-2020 19:51:09 EDT by Dori Tran
[2020-06-02 06:28] VITALS: BP 107/57
[2020-06-02] MEDS: buPROPion **XL** TABLET 150MG (WELLBUTRIN XL) PO SCH (09:11)
--- NOTE | 2020-06-02 16:08 | HPEPDOC ---
[facility] Medical History & Physical Date of Admission May 30, 2020 Date of Service: Jun 02, 2020 Attending Physician: BRANDON SOUZA MD History and Physical CHIEF COMPLAINT: Paranoid delusions with visual and auditory hallucinations HISTORY OF PRESENT ILLNESS: 49-year-old M with past medical history of depression, bipolar disorder, anxiety, history of hepatitis C without history of treatment with long standing viremia, tobacco use, IV drug use who presented to [facility] after feeling as though he was not safe with paranoid delusions and with visual and auditory hallucinations i/s/o of recent illicit drug use. Tox screen was positive for methadone while he also admitted to recent use of IV heroin and Winter frequently. I evaluated him on 06/02 after he presented on 05/30. He reports resolution of his auditory and visual hallucinations. He also denies any nausea, vomiting, diarrhea, chest pain, shortness of breath, difficulty eating or change in appetite. His lab evaluation was notable for chronic mild transaminitis and previously noted mild leukocytosis, UA and culture were negative for infection. REVIEW OF SYSTEMS: CONSTITUTIONAL: Denies lack of energy, unexplained weight gain or weight loss, loss of appetite, fever, night sweats EYES: Denies eye drainage, eye pain, visual changes, dry/irritated eye EARS, NOSE, MOUTH, THROAT: Denies difficulty hearing, ringing in ears, mouth sores, loose teeth, sore throat, facial numbness or pain NECK: Denies swollen glands CARDIOVASCULAR: Denies irregular heartbeat, racing heart, chest pains, swelling of feet or legs, pain in legs with walking RESPIRATORY: Denies shortness of breath, night sweats, wheezing, sputum production, oxygen at home, coughing up blood, cough lasting > 1 month GASTROINTESTINAL: Denies abdominal pain, constipation, bloody stool, diarrhea, heartburn, nausea, vomiting GENITOURINARY: Denies painful urination, bloody urine, frequent urination, urgency, leaking urine, impotence MUSCULOSKELETAL: Denies joint pain, muscle pain, leg swelling INTEGUMENTARY: Denies rash, itching, new skin lesion, change in existing skin lesion, hair loss or increase, breast changes. NEUROLOGICAL: Denies headaches, dizziness, difficulty walking, numbness or tingling PSYCHIATRIC: Denies mood swings, hallucinations at this time PAST MEDICAL HISTORY: 1. IV drug use 2. Hx of Hep C, has recently noted viremia, however still using IV illicit drugs 3. Tobacco use 4. Depression 5. Anxiety 6. Bipolar disorder PAST SURGICAL HISTORY: 1. Appendectomy FAMILY HISTORY: Father: , cause unknown Mother: , cause unknown SOCIAL HISTORY: Smokes 1/2 PPD for ~30 years, denies alcohol use. Uses IV Winter and amphetamines regularly. Unemployed, recently homeless. No established PCP. ALLERGIES: Please see below. HOME MEDICATIONS: Please see below. PHYSICAL EXAMINATION: VS: please see below GENERAL: No acute distress, resting comfortably, AAO x 3, thin EYES: PERRLA, EOM intact HENT, MOUTH: Normocephalic, atraumatic, moist mucous membranes, NECK: SUPPLE, no JVD, no lymphadenopathy, no carotid bruit CV: Regular rate and rhythm, S1S2 normal, no murmurs/rubs/gallops RESPIRATORY: Clear to auscultation bilaterally, no rales/rhonchi/wheezes GI: BS positive in 4 quadrants, soft, nontender, nondistended, no rebound or guarding, no organomegaly MUSCULOSKELETAL: Normal ROM. No cyanosis, clubbing, swelling, joint deformity, extremity edema INTEGUMENTARY: Intact, no rashes, no lesions, no erythema NEUROLOGIC: Cranial Nerves II-XII are intact, no focal deficits PSYCHIATRIC: Mood and affect are normal LABORATORY DATA: Reviewed. IMAGING: None ASSESSMENT: 49-year-old male with past medical history of depression, bipolar disorder, anxiety, history of hepatitis C, tobacco use, IV drug use admitted for unspecified depressive disorder, suicidal attempt/suicidal ideations. PLAN: 1. Paranoid delusions with AH and VH i/s/o illicit drug use. -Plan per psychiatry team. 2. Hx of anxiety/bipolar disorder. -Plan per psychiatry team. 3.Chronic Hep C, ongoing IV drug abuse. No history of treatment -Chronic elevated AST/ALT -Recent viral load was detactable and has a history of significant viremia -Recommend o/p referral to ID and establishing with the resident clinic for a PCP 4. Tobacco use. -Nicotine patch DISPOSITION: Thank you kindly for the consult for this patient. Will sign off as his active issues are primarily psych focused. If we are needed further, please call internal medicine at any time. Vital Signs Vital Signs Date Time Temp Pulse Resp B/P (MAP) Pulse Ox O2 Delivery O2 Flow Rate FiO2 06/02/20 06:28 98.3 54 18 107/57 (74) 99 Room Air Laboratory Data Microbiology Microbiology 05/30/20 Urine Culture - Final, Complete Home Medications Scheduled Bupropion Hcl (Bupropion Xl) 150 Mg Tab.er.24h, 150 MG PO DAILY Fluticasone Propionate (Flonase Allergy Relief) 9.9 Ml [place].susp, 1 SPRAY NA BID Pantoprazole Sodium (Pantoprazole Sodium) 40 Mg Tablet.dr, 40 MG PO BID Quetiapine Fumarate (Quetiapine Fumarate) 200 Mg Tablet, 1 TAB PO QPM Sertraline Hcl (Zoloft) 100 Mg Tablet, 1 TAB PO DAILY Tamsulosin HCl (Flomax) 0.4 Mg Capsule, 0.4 MG PO DAILY Trazodone HCl (Trazodone HCl) 100 Mg Tablet, 200 MG PO QHS Scheduled PRN Albuterol Sulfate (Albuterol Sulfate Hfa) 8.5 Gm Hfa.aer.ad, 2 PUFFS INH Q4H PRN for SHORTNESS OF BREATH Allergies Coded Allergies: No Known Allergies (Unverified , 08/29/18) A-FIB/CHADSVASC A-FIB History Current/History of A-Fib/PAF?: No Current PO Anticoag Therapy: No Age/Risk Factor Scoring CHADSVASC: CHADSVASC Response (Comments) Value Age Risk Factor Age < 65 years old 0 Gender Risk Factor Male 0 Hx of CHF Yes 1 Hx of HTN Yes 1 Hx of Stroke/TIA/or VTE Yes 2 Hx of Diabetes Yes 1 Hx of Vascular Disease Yes 1 Total 6 Treatment Treatment ordered: NONE Reason Anticoagulant not given: Not indicated/[id number] BRANDON SOUZA MD Jun 02, 2020 16:08
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
[2020-06-02 16:34] VITALS: BP 115/68
[2020-06-02] MEDS: FLUTICASONE PROP 0.05% NASAL SPRAY 16 GM (FLONASE) NARES SCH (21:00)
[2020-06-02] MEDS: QUEtiapine FUMARATE 200 MG TAB PO SCH (21:39)
[2020-06-03 06:35] VITALS: BP 120/70
[2020-06-03] MEDS: FLUTICASONE PROP 0.05% NASAL SPRAY 16 GM (FLONASE) NARES SCH ×2 (09:00→21:00)
[2020-06-03] MEDS: TAMSULOSIN 0.4 MG CAP PO SCH (09:19)
[2020-06-03] MEDS: PANTOPRAZOLE 40MG TAB (PROTONIX) PO SCH (09:19)
[2020-06-03] MEDS: SERTRALINE HCL 50 MG TAB PO SCH (09:19)
[2020-06-03] MEDS: buPROPion **XL** TABLET 150MG (WELLBUTRIN XL) PO SCH (09:19)
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
[2020-06-03 16:25] VITALS: BP 128/77
[2020-06-03] MEDS ORDERED: OLANZapine ORAL DISINTEGRATING TAB 5MG PO PRN (18:20)
[2020-06-03] MEDS: QUEtiapine FUMARATE 200 MG TAB PO SCH (21:00)
[2020-06-04 07:09] VITALS: BP 107/57
[2020-06-04] MEDS: buPROPion **XL** TABLET 150MG (WELLBUTRIN XL) PO SCH (08:19)
[2020-06-04] MEDS: SERTRALINE HCL 50 MG TAB PO SCH (08:19)
[2020-06-04] MEDS: PANTOPRAZOLE 40MG TAB (PROTONIX) PO SCH (08:19)
[2020-06-04] MEDS: TAMSULOSIN 0.4 MG CAP PO SCH (08:19)
[2020-06-04] MEDS: FLUTICASONE PROP 0.05% NASAL SPRAY 16 GM (FLONASE) NARES SCH (08:20)
--- NOTE | 2020-06-04 12:14 | MHDSPDOC ---
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 He reports on this occasion that he initially had suicidal thoughts and can't remember much thereafter. He presented with paranoia and delusional thinking due to recent drug use. PER ED REPORT: Pt. states he feels like his head is going to explode. He states "I don't know" when asked if he was feeling suicidal. Pt appears very anxious, lying on bed, holding head at times, moving around on bed. He states he cannot answer more questions due to feeling too angry. PT is paranoid and having AH/VH secondary to drug use. Upon arrival to the ED PT came running into the waiting room as he was disrobing stating that if he didnt have clothes on then "they" could no longer track him. He had pieces of a cell phone and the person that brought PT to ED stated the phone was brand new and PT broke it to prevent the FBI from tracking him. PT states that he has been doing well staying clean and trying to repair his relationships with his daughters. He presented to ED today very paranoid and clearly altered. PT admits to using drugs "I was doing so well and then he brought some wine over". PT has Hx of duel diagnosis and he often abuses ta/meth. PT is slightly hard to follow as he talks about his daughter and that he believes "she did what she had to put me here". PT discusses other community members that are also struggling with addiction and that he recently moved from his apartment due to the number of other tenants that were trying to harm him. PT often looks out of the room window looking for his daughter. While in the bathroom PT could be heard talking and messing with the paper bag from the garbage can. When the door was open PT had the bag and was in the dark. He went back to his room without issue. A few minutes after being in his room he came out and went to the secure door "Just want to see the line up" as he looked out the window. He again returned to his room without issue. PT has been given medication 2x to assist and it does not appear to be helping him. A seclusion order is now in place as PT's frequent exits from his room have caused another PT to become highly agitated and the two men were yelling at each other. PT denies SI/HI at this point. SA re-evaluated Pt this morning after him having some sleep. Pt seems less anxious and paranoid, however expresses SI and reports "I don't want to be on this earth anymore" and "I have nothing worth living for" Pt reports that his kids "just sit back and watch me, I know they were in here yesterday and they just don't even want to talk to me" Pt still believes that the drug task force is following him and is the one that took his blood when he got here yesterday. PSA reminded him that the hospital does not have the DTF on staff. Pt does go off on tangents about this at times, but is able to be re- directed. Pt reports that he was in a half way house in [place] recently but was discharged sometime last week, he has been homeless since this time. When asked about follow up and outpatient treatment, Pt reports that he is not in any but "I'm assuming [facility]." When asked to contract for safety, Pt refuses and feels "I need to be in hospital permanently" When asked about plans, he says "I will figure out something" Pt reports Hx of attempt via OD. When asked about HI he states "yeah, I wanna kill the asshole that keeps giving me drugs" CONSULTANTS INVOLVED: See Medical H + P by Hospitalist TREATMENT AND PROGRESS ON THE UNIT: Patient was admitted to the [facility] on a legal status he was afforded the following treatment modalities: 1) Individual Therapy 2) Group Therapy 3) Medication Management 4) Milieu Therapy 5) Safe Environment HOSPITAL COURSE: Patient is admitted to [facility] on a legal status. He was started on his home medications, observed for abnormal sleep, continued suicidality, paranoia and delusional thinking, patient is well-known to this facility and his complaints on this hospitalization is similar to previous hospitalizations in which he is complaining of being suicidal, depressed and paranoid. Patient often will be isolative and withdrawn. Initially in his hospitalizations. He is very irritable, agitated and mildly hostile. He is us ually requesting to be discharged after a few days . He is reporting no depression or suicidal thoughts. He states that he has no delusional thinking or paranoid thoughts about the FBI. On today's interview, he was very bright in mood and affect, social with peers and staff, cooperative and visible in the milieu. Patient is now reporting that he is baseline and requesting to be discharged. Treatment team feels patient is safe to leave today. Patient initially requested help with housing, on this day he states that he has money is going to a a hotel. He states that he wants to return to [place] for rehab, but does not want the referral done by the city planner. DISCHARGE ASSESSMENT: In today's interview, patient is alert and oriented, pts dress is appropriate. Hygiene and grooming is well-kempt. Smiles on approach and is pleasant and engaged in the interview. Denies depression and anxiety. Denies suicidal and homicidal ideation, planning or intent. Denies and is not observed with jon, psychotic symptoms of delusions, bizarre thinking, obsessions, paranoia, ruminations illogical thoughts, flight of ideas or having poor insight and judgement. Patient has normal mentation, declines further hospitalization on a voluntary status and meets criteria for discharge today. Patient encouraged to return to hospital if his symptoms worsen or change and encouraged to call unit if he/she/they needs to speak to provider for questions regarding medications or care. MENTAL STATUS EXAMINATION ON DISCHARGE: Patient is a 50 -year-old , male, who has a long history of multiple admissions to this facility and was recently discharged in 01/07/20-02/05/20 and discharged to rehab at that time. He reports on this occasion that he initially had suicidal thoughts and can't remember much thereafter. He presented with paranoia and delusional thinking due to recent drug use. Speech: Is fluid, conversant, normal rate, tone and volume Language skills are intact Thought processes including: linear and goal oriented Thought content: denies depression and anxiety. Denies suicidal/homicidal ideation, planning or intent. Abstract reasoning, and computation: fair Description of associations: denies, none observed Description of abnormal or psychotic thoughts: denies, none observed. Judgment: fair Insight: fair Orientation: alert and oriented to person, place, time and situation Recent and remote memory: intact Attention span and concentration: good Language: expansive Fund of knowledge: average Mood: Euthymic Mood Affect: reactive MEDICATIONS ON DISCHARGE: See Medication Reconciliation. Patient continued on all of his home medications, states that he does not need any refills. PLAN/FOLLOWUP ARRANGEMENTS: Patient states that he has a friend that he is [place] [facility] with and that he is going to go to [facility] and possibly back to [place] for more rehab, The amount of time spent in the coordination of care for this patient was approximately 60 minutes. ETOH/Disorder Med Rx ETOH/DRUG DISORDER RX: Offrd @ d/c & pt refused Vital Signs/I&Os Vital Signs Date Time Temp Pulse Resp B/P (MAP) Pulse Ox O2 Delivery O2 Flow Rate FiO2 06/04/20 07:09 97.8 70 16 107/57 (74) 99 Room Air Laboratory Data Microbiology Microbiology 05/30/20 Urine Culture - Final, Complete Medications Scheduled Bupropion Hcl (Bupropion Xl) 150 Mg Tab.er.24h, 150 MG PO DAILY, (Reported) Fluticasone Propionate (Flonase Allergy Relief) 9.9 Ml [place].susp, 1 SPRAY NA BI D, (Reported) Pantoprazole Sodium (Pantoprazole Sodium) 40 Mg Tablet.dr, 40 MG PO BID, (Reported) Quetiapine Fumarate (Quetiapine Fumarate) 200 Mg Tablet, 1 TAB PO QPM for 30 Days, #30 (Reported) Sertraline Hcl (Zoloft) 100 Mg Tablet, 1 TAB PO DAILY for 30 Days, #30 (Reported) Tamsulosin HCl (Flomax) 0.4 Mg Capsule, 0.4 MG PO DAILY, (Reported) Trazodone HCl (Trazodone HCl) 100 Mg Tablet, 200 MG PO QHS, (Reported) Scheduled PRN Albuterol Sulfate (Albuterol Sulfate Hfa) 8.5 Gm Hfa.aer.ad, 2 PUFFS INH Q4H PRN for SHORTNESS OF BREATH, (Reported) Allergies Coded Allergies: No Known Allergies (Unverified , 08/29/18) MARIANA BHAKTA NP Jun 04, 2020 12:14
[2020-06-05] MEDS ORDERED: med rec comment (19:20)
== END 2020-06-04 12:17 | disposition home or self-care (01) | DRG 750 ==
LOC: M ED 16:19 → M ED INP 06-01 14:17 → M PSY 06-01 15:15
PROVIDERS: ADMIT Psychiatry & Neurology Psychiatry; ATTEND Psychiatry & Neurology Psychiatry
DX: F20.9 Schizophrenia, unspecified (principal); F15.14 Other stimulant abuse with stimulant-induced mood disorder; F12.10 Cannabis abuse, uncomplicated; F17.210 Nicotine dependence, cigarettes, uncomplicated; B19.20 Unspecified viral hepatitis C without hepatic coma; F22 Delusional disorders; F41.9 Anxiety disorder, unspecified; F31.9 Bipolar disorder, unspecified; Z79.899 Other long term (current) drug therapy; Z81.8 Family history of other mental and behavioral disorders; Z91.5 Personal history of self-harm; Z90.49 Acquired absence of other specified parts of digestive tract

== ENCOUNTER 2020-06-05 15:12 | Emergency (ER) | payer MEDICAID, OTHER ==
[~2020-06-05] VITALS: Ht 165.1 cm; Wt 59.5 kg
[2020-06-05] MEDS ORDERED: ACETAMINOPHEN 500 MG TAB PO ONE (15:50)
--- NOTE | 2020-06-05 15:57 | REP ---
INDICATION: trauma. COMPARISON: 12/28/2019. TECHNIQUE: CT BRAIN PERFORMED IN THE AXIAL PLANE. CORONAL RECONSTRUCTION IMAGES ARE PERFORMED. FINDINGS: THE VENTRICLES ARE NORMAL IN SIZE AND POSITION. THERE IS NO MIDLINE SHIFT OR MASS EFFECT. GONZALEZ-WHITE DIFFERENTIATION IS WELL MAINTAINED. THERE IS NO ACUTE INTRACRANIAL HEMORRHAGE OR EXTRA-AXIAL FLUID COLLECTION. BONE WINDOW EXAMINATION IS UNREMARKABLE. VISUALIZED MASTOID AIR CELLS AND PARANASAL SINUSES ARE CLEAR. IMPRESSION: NEGATIVE NONCONTRAST CT BRAIN. <Electronically signed by Odilon Gonzalez > 06/05/20 1556
--- NOTE | 2020-06-05 16:01 | REP ---
INDICATION: trauma. COMPARISON: 07/26/2016. TECHNIQUE: CT cervical spine performed in the axial plane, with sagittal and coronal reconstruction images performed. FINDINGS: There is no acute compression fracture or malalignment. There is no prevertebral soft tissue swelling. There is mild spurring of see 5 through C7 with intervening mild disc space narrowing and subchondral sclerosis of C6-7 and C5-6. There is no abnormal density in the spinal canal. IMPRESSION: No evidence of acute fracture or dislocation.Degenerative disc changes. <Electronically signed by Odilon Gonzalez > 06/05/20 1038
[2020-06-05 17:03] LABS: BASO % 0.3 % (0.0-1.0); EOS # 0.1 10^3/uL (0.0-0.5); EOS % 0.5 % (0.0-3.0); HEMATOCRIT 42.7 % (42.0-52.0); HEMOGLOBIN 14.5 g/dl (13.5-17.5); LYMPH # 1.7 10^3/uL (1.5-5.0); LYMPH % 12.8 % (24.0-44.0); MEAN CORPUSCULAR HEMOGLOBIN 29.4 pg (27.0-33.0); MEAN CORPUSCULAR VOLUME 86.4 fl (80.0-96.0); NEUTROPHILS # 10.1 10^3/uL (1.5-8.5); NEUTROPHILS % 77.7 % (36.0-66.0); PLATELET COUNT, AUTOMATED 620 10^3/uL (150-450); RED BLOOD COUNT 4.94 10^6/uL (4.30-6.10); WHITE BLOOD COUNT 12.9 10^3/uL (4.0-10.0)
[2020-06-05 17:34] LABS: ACETAMINOPHEN LEVEL < 2.0 UG/ML (10.0-30.0); ALBUMIN 3.9 GM/DL (3.2-5.2); ALT/SGPT 107 U/L (12-78); BILIRUBIN,DIRECT 0.2 MG/DL (0.0-0.2); BILIRUBIN,TOTAL 0.5 MG/DL (0.2-1.0); BLOOD UREA NITROGEN 12 MG/DL (7-18); CALCIUM LEVEL 9.8 MG/DL (8.5-10.1); CARBON DIOXIDE LEVEL 29 MEQ/L (21-32); CHLORIDE LEVEL 106 MEQ/L (98-107); CREATININE FOR GFR 0.72 MG/DL (0.70-1.30); ETHYL ALCOHOL (ETHANOL) < 0.003 % (0.000-0.010); GLOMERULAR FILTRATION RATE > 60.0 (>56); GLUCOSE, FASTING 93 MG/DL (70-100); POTASSIUM SERUM 4.9 MEQ/L (3.5-5.1); SALICYLATE LEVEL 2.3 MG/DL (5.0-30.0); SODIUM LEVEL 139 MEQ/L (136-145); THYROID STIMULATING HORMONE 0.919 uIU/ML (0.358-3.740); TOTAL PROTEIN 7.4 GM/DL (6.4-8.2)
[2020-06-05 18:42] LABS: AMPHETAMINES LEVEL URINE NEGATIVE (NEGATIVE); BARBITURATES URINE NEGATIVE (NEGATIVE); BENZODIAZEPINES URINE NEGATIVE (NEGATIVE); CANNABINOIDS URINE NEGATIVE (NEGATIVE); COCAINE METABOLITE URINE NEGATIVE (NEGATIVE); METHADONE URINE NEGATIVE (NEGATIVE); OPIATES URINE NEGATIVE (NEGATIVE); PHENCYCLIDINE URINE NEGATIVE (NEGATIVE)
--- NOTE | 2020-06-05 19:18 | ECGEPIP ---
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
[2020-06-05] MEDS ORDERED: med rec comment (19:20)
[2020-06-05 20:54] LABS: RSV AMPLIFICATION NEGATIVE (NEGATIVE)
[2020-06-05] MEDS ORDERED: LORazepam 2 MG TAB PO STA (21:16)
[2020-06-05] MEDS ORDERED: haloperidoL 5 MG TAB PO ONE (21:20)
[2020-06-05 22:54] VITALS: BP 128/91
== END 2020-06-05 23:18 ==
LOC: M ED 15:12
DX: R45.851 Suicidal ideations (principal); S09.90XA Unspecified injury of head, initial encounter; R44.0 Auditory hallucinations; W19.XXXA Unspecified fall, initial encounter; F17.200 Nicotine dependence, unspecified, uncomplicated; Z79.51 Long term (current) use of inhaled steroids; Z79.899 Other long term (current) drug therapy

== ENCOUNTER 2020-06-10 15:42 | Inpatient (IN) | payer MEDICAID, OTHER ==
[~2020-06-10] VITALS: Ht 165.1 cm; Wt 57.6 kg
[2020-06-10] MEDS ORDERED: LORazepam 2 MG TAB PO STA ×3 (17:10→23:05)
[2020-06-10 18:29] LABS: HEMATOCRIT 45.9 % (42.0-52.0); MEAN CORPUSCULAR HEMOGLOBIN 29.8 pg (27.0-33.0); MEAN CORPUSCULAR HGB CONC 34.9 g/dl (32.0-36.5); MEAN CORPUSCULAR VOLUME 85.5 fl (80.0-96.0); PLATELET COUNT, AUTOMATED 456 10^3/uL (150-450); RED BLOOD COUNT 5.37 10^6/uL (4.30-6.10); WHITE BLOOD COUNT 17.7 10^3/uL (4.0-10.0)
[2020-06-10 18:49] LABS: AMPHETAMINES LEVEL URINE POSITIVE (NEGATIVE); BARBITURATES URINE NEGATIVE (NEGATIVE); BENZODIAZEPINES URINE NEGATIVE (NEGATIVE); CANNABINOIDS URINE NEGATIVE (NEGATIVE); COCAINE METABOLITE URINE NEGATIVE (NEGATIVE); METHADONE URINE NEGATIVE (NEGATIVE); OPIATES URINE NEGATIVE (NEGATIVE); PHENCYCLIDINE URINE POSITIVE (NEGATIVE)
[2020-06-10 19:03] LABS: ACETAMINOPHEN LEVEL < 2.0 UG/ML (10.0-30.0); ALBUMIN 4.3 GM/DL (3.2-5.2); ALT/SGPT 162 U/L (12-78); BILIRUBIN,DIRECT 0.2 MG/DL (0.0-0.2); BILIRUBIN,TOTAL 0.8 MG/DL (0.2-1.0); BLOOD UREA NITROGEN 16 MG/DL (7-18); CALCIUM LEVEL 9.9 MG/DL (8.5-10.1); CARBON DIOXIDE LEVEL 24 MEQ/L (21-32); CHLORIDE LEVEL 101 MEQ/L (98-107); CREATININE FOR GFR 1.36 MG/DL (0.70-1.30); ETHYL ALCOHOL (ETHANOL) < 0.003 % (0.000-0.010); GLOMERULAR FILTRATION RATE 59.1 (>56); GLUCOSE, FASTING 114 MG/DL (70-100); POTASSIUM SERUM 4.9 MEQ/L (3.5-5.1); SALICYLATE LEVEL 2.3 MG/DL (5.0-30.0); SODIUM LEVEL 132 MEQ/L (136-145); TOTAL PROTEIN 7.9 GM/DL (6.4-8.2)
[2020-06-10] MEDS ORDERED: OLANZapine ORAL DISINTEGRATING TAB 5MG PO ONE (23:05)
--- NOTE | 2020-06-11 01:34 | ECGEPIP ---
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
[2020-06-11] MEDS ORDERED: LORazepam 2 MG TAB PO STA (07:42)
[2020-06-11] MEDS ORDERED: traZODone 50 MG TAB PO PRN (11:45)
[2020-06-11] MEDS ORDERED: MOM 30ML SUSPENSION UDC PO PRN (11:45)
[2020-06-11] MEDS ORDERED: MAALOX 30 ML SUSP *UDC PO PRN (11:45)
[2020-06-11] MEDS ORDERED: ALBUTEROL 90 MCG/ACT 8GM HFA INHALER INH PRN (13:40)
[2020-06-11] MEDS: NICOTINE 14 MG/24 HR TRANSDERMAL TD SCH (15:00)
[2020-06-11] MEDS: haloperidoL 5 MG TAB PO STA ×2 (15:36→15:50)
[2020-06-11] MEDS: diphenhydrAMINE 50MG CAP PO STA ×2 (15:36→15:50)
[2020-06-11] MEDS: LORazepam 2 MG TAB PO STA ×2 (15:36→15:50)
[2020-06-11] MEDS ORDERED: LORazepam 2 MG/ML VIAL IM STA (15:55)
[2020-06-11] MEDS ORDERED: HALOPERIDOL 5MG/ML VIAL (J1630 PER 1) IM STA (15:55)
[2020-06-11] MEDS ORDERED: diphenhydrAMINE 50MG/ML VIAL (J1200) IM STA (15:55)
[2020-06-11] MEDS: PANTOPRAZOLE 40MG TAB (PROTONIX) PO SCH (21:00)
[2020-06-11] MEDS: FLUTICASONE PROP 0.05% NASAL SPRAY 16 GM (FLONASE) SCH (21:00)
[2020-06-11] MEDS: traZODone 100 MG TAB PO SCH (21:00)
[2020-06-11] MEDS: QUEtiapine FUMARATE 200 MG TAB PO SCH (21:00)
[2020-06-12] MEDS: NICOTINE 14 MG/24 HR TRANSDERMAL TD SCH (09:00)
[2020-06-12] MEDS: TAMSULOSIN 0.4 MG CAP PO SCH (09:00)
[2020-06-12] MEDS: FLUTICASONE PROP 0.05% NASAL SPRAY 16 GM (FLONASE) SCH ×2 (09:00→20:03)
[2020-06-12] MEDS: buPROPion **XL** TABLET 150MG (WELLBUTRIN XL) PO SCH (09:19)
[2020-06-12] MEDS: SERTRALINE 100 MG TAB PO SCH (09:19)
[2020-06-12] MEDS: PANTOPRAZOLE 40MG TAB (PROTONIX) PO SCH ×2 (09:19→20:02)
--- NOTE | 2020-06-12 16:26 | MHHPE ---
[facility] HISTORY AND PHYSICAL DATE OF ADMISSION: 06/11/2020 PROVIDER: BRENTON Moses LEGAL STATUS: 9.39. CHIEF COMPLAINT: Patient is paranoid after using substances. HISTORY OF PRESENT ILLNESS: Patient is a 50-year-old, single, disabled, domiciled male who was recently discharged from this facility on 06/04/2020. His admission was 06/01/2020 to 06/04/2020, and he was discharged home. He was brought back to [facility] on 06/05/2020 by emergency medical services (EMS) after he was found outside of [facility] acting very paranoid and delusional, most likely due to Winter that he reported using the day before. Patient has a long history of polysubstance abuse and bipolar disorder. According to the patient, he was very paranoid. "Please, you need to help me because these people are going to kill me." He reported that same vehicles were coming after him with the intent to kill him over the past 2 days. States he intends to protect himself but has no means to do so. During the interview, patient was severely paranoid with persecutory delusions. He believes people are trying to kill him. He presented to the emergency department actively suicidal but no specific plan and states that he was missing his family. He denies any command auditory hallucinations but then describes his auditory hallucinations as so many voices laughing at him, and he could not make out what they were trying to say to him. He has a long history of numerous admissions to inpatient mental health unit ([facility]) for similar complaints, most likely due to his ongoing amphetamine abuse. He is requesting hospitalization due to his suicidality, and he is clearly decompensating. Patient was not agreeable to an interview when I attempted to meet him. According to the emergency room (ER), he was reporting being very anxious, depressed. He was very irritable and had paranoia and auditory hallucinations. He denied any depression. Actually he refused to answer the questions. Patient has a history of being very irritable. He was observed to be quite aggressive and verbally assaultive when he came on the unit yesterday afternoon. He was reporting auditory and visual hallucinations and paranoia. He denies any posttraumatic stress symptoms. Denies any anxiety symptoms. PAST PSYCHIATRIC HISTORY: Patient has a diagnosis of unspecified depressive disorder, adjustment disorder, history of bipolar disorder, methamphetamine use disorder, cannabis use disorder, tobacco use disorder. PREVIOUS PSYCHIATRIC ADMISSIONS: Patient has greater than 25 admissions since 2018. His last admission, again, was 06/01/2020 to 06/04/2020. SUICIDE ATTEMPTS: Patient attempted suicide by gunshot and has had numerous overdoses. Unknown if these were accidental or planned. PSYCHIATRIC FOLLOWUP: [facility] in the past. PSYCHIATRIC MEDICATIONS: Patient has had Abilify, Wellbutrin, Seroquel, sertraline, and trazodone in the past. PAST MEDICAL HISTORY: Medical problems: 1. Intravenous (IV) drug use. 2. Hepatitis C. 3. Tobacco use. SURGICAL HISTORY: Appendectomy. ALLERGIES: No known drug allergies. Patient has no reported history of head injury or seizures. He has had numerous hospitalizations. FAMILY MEDICAL HISTORY: He reports that his father is and of a heart attack. Mother is . She had chronic obstructive pulmonary disease (COPD). Reports that a maternal uncle had schizophrenia. He states that a nephew had completed a suicide in 2019. States that his family has a history of psychiatric disorders and addictions. ADDICTION HISTORY: Patient reports nicotine, amphetamines, heroin, methamphetamines, and cannabis use. History of treatment at [facility]. SOCIAL HISTORY: Patient was born in [place], [place]. Both of his parents are . He has two brothers and a sister. He is the third child. Reports no developmental or issues. Denies any history of abuse or trauma. Currently he is homeless. Patient never graduated high school. Only went to the 7th or 8th grade. Not currently employed. He receives SSI. He reports that he has no social supports. At one time he did have his daughter that he was speaking to. He may have been placed in a position where he has alienated his family due to drug use. Patient has no history of current legal issues now, but he has a history of attempted burglary and was in retirement for that. Currently he is . MENTAL STATUS EXAMINATION: Patient is a 50-year-old single, , unemployed male. He is unkempt. Appears older than his stated age. Dressed in hospital scrubs and has no attempts to be engaged in the interview. He has a thin build, short statured. Patient is uncooperative with the interview. Very mistrustful, withdrawn, and guarded. He presented similarly to many of his admissions. He has avoidant eye contact. He is withdrawn, and his speech is impoverished, as he does not want to participate in the interview. Affect is flat and constricted. He reports that he is depressed and anxious. Thought process is logical and linear. He is not observed with any paranoid or delusions at this time. Patient is alert and oriented times three to person, place, time. His insight and judgment are fair. I do not see any psychiatric symptoms at this time. DIAGNOSES: 1. Unspecified schizophrenia and other psychotic disorders. 2. History of bipolar disorder. 3. Amphetamine use disorder. 4. Cannabis use disorder. Patient is not currently on any atrial fibrillation, anticoagulant therapies. ASSESSMENT: Patient is a 50-year-old , unemployed, and domiciled male. Numerous hospitalizations to this hospital for similar complaints. Reports recent use of Winter. He was brought to the emergency department by EMS after he was found outside of [facility] acting very paranoid and delusional, reporting that people were trying to kill him. He was recently discharged from this facility on 06/04/2020. At this time patient is not requesting any rehabilitation treatment. He often is disengaged with treatment modalities for 2-3 days and then wants to leave. His affect is flat and blunted. Again, uncooperative in the interviews. Eye contact is avoidant. Speech is impoverished. He reports no delusional or bizarre thinking at this time. Cognition is not impaired. His Insight and judgment are fair. No psychotic symptoms noted. Patient will be stabilized on his home medications. 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 The treatment plan will also focus on depression, risk for suicide, risk for substance use, altered thoughts, and reorientation. ESTIMATED LENGTH OF STAY: 3-5 days. TIME SPENT COUNSELING AND COORDINATING INITIAL CARE: 60 minutes. Patient refused lipid panel.
[2020-06-12] MEDS ORDERED: cefTRIAXone SOD 1 GM in D5W MINI-BAG PLUS 50 ML IV ONE (18:00)
[2020-06-12] MEDS ORDERED: NS 1,000 ML IV ONE (18:00)
[2020-06-12] MEDS: GASTROGRAFIN SOLUTION 30ML PO SCH ×3 (18:45→19:38)
[2020-06-12] MEDS ORDERED: cefTRIAXone SOD 1GM VIAL (J0696 PER 250MG) IM ONE (20:00)
[2020-06-12] MEDS ORDERED: LIDOCAINE 1% SDV 5ML VIAL DILUENT ONE (20:00)
[2020-06-12] MEDS: traZODone 100 MG TAB PO SCH (20:02)
[2020-06-12] MEDS: QUEtiapine FUMARATE 200 MG TAB PO SCH (20:02)
--- NOTE | 2020-06-12 21:34 | HPEPDOC ---
[facility] Medical History & Physical Date of Admission Jun 11, 2020 Date of Service: Jun 12, 2020 History and Physical CHIEF COMPLAINT: Hallucination, paranoid, dysuria, abdominal pain HISTORY OF PRESENT ILLNESS: Mr. Leone is a 50 year old male with Bipolar disorder and IVDA who is in the inpatient mental health unit for hallucinations and paranoia. When I saw him in the afternoon, he told me he had dysuria for 2 weeks. He was seen in [place] and was prescribed antibiotics, but he did not brain picker antibiotics because he was moving up to [place], [place]. Otherwise, he has had abdominal tenderness for the past 5 months. He still has abdominal tenderness. PAST MEDICAL HISTORY: 1. IV drug use 2. Hx of Hep C, has recently noted viremia, however still using IV illicit drugs 3. Tobacco use 4. Depression 5. Anxiety 6. Bipolar disorder PAST SURGICAL HISTORY: 1. Appendectomy SOCIAL HISTORY: Tobacco use: Current smoker. Spoked for about 37 years ETOH: Denies alcohol Illicit drug use: Uses IV Winter and amphetamines FAMILY HISTORY: Denies knowledge of parent's medical history ALLERGIES: Please see below. REVIEW OF SYSTEMS: CONSTITUTIONAL: Denies any fever or chills. ENT: Denies rhinorrhea. Denies sore throat. RESPIRATORY: Denies shortness of breath. Denies cough. CARDIOVASCULAR: Denies chest pain. GASTROINTESTINAL: Reports abdominal tenderness GENITOURINARY: Reports dysuria CUTANEOUS: Denies rashes. MUSCULOSKELETAL: Denies muscle weakness. NEUROLOGICAL: Denies paresthesias. PSYCHOLOGICAL: Reports anxiety. Reports depression. HOME MEDICATIONS: Please see below. PHYSICAL EXAMINATION: VITAL SIGNS: Temperature 98.6, pulse 99, respiratory rate 18, blood pressure 98/57, pulse oximetry 100 % on room air. GENERAL: Comfortable, in no apparent distress. HEENT: Head normocephalic/atraumatic, EOMI, sclera clear. NECK: Supple, no JVD. RESPIRATORY: Lungs clear to auscultation bilaterally, no rales, wheeze or rhonchi. CARDIOVASCULAR: Tachycardic but regular ABDOMEN: Abdominal tenderness. Normal bowel sounds. MUSCLE SKELETAL: Muscle strength 5/5 in all extremities. NEUROLOGICAL: CN 312 grossly intact, no focal deficits noted. PSYCHOLOGICAL: Normal mood and affect LABORATORY DATA: See below. ASSESSMENT and PLAN: 1. Unspecified schizophrenia and other psychotic disorders Being managed in the inpatient medical health unit 2. Dysuria We'll order a UA and check chlamydia and gonorrhea Start with IM ceftriaxone. Continue with cefdinir tomorrow 3. Abdominal tenderness We'll check a CT abdomen and pelvis with and without contrast Vital Signs Vital Signs Date Time Temp Pulse Resp B/P (MAP) Pulse Ox O2 Delivery O2 Flow Rate FiO2 06/11/20 12:18 98.6 99 18 98/57 (71) 100 Room Air Laboratory Data Microbiology Microbiology 06/11/20 Respiratory Virus Panel (PCR) (PRERNA) - Final, Complete Home Medications Scheduled Bupropion Hcl (Bupropion Xl) 150 Mg Tab.er.24h, 150 MG PO DAILY Fluticasone Propionate (Flonase Allergy Relief) 9.9 Ml [place].susp, 1 SPRAY NA BID Pantoprazole Sodium (Pantoprazole Sodium) 40 Mg Tablet.dr, 40 MG PO BID Quetiapine Fumarate (Quetiapine Fumarate) 200 Mg Tablet, 200 MG PO QPM Sertraline Hcl (Zoloft) 100 Mg Tablet, 100 MG PO DAILY Tamsulosin HCl (Flomax) 0.4 Mg Capsule, 0.4 MG PO DAILY Trazodone HCl (Trazodone HCl) 100 Mg Tablet, 200 MG PO QHS Scheduled PRN Albuterol Sulfate (Albuterol Sulfate Hfa) 8.5 Gm Hfa.aer.ad, 2 PUFFS INH Q4H PRN for SHORTNESS OF BREATH Miscellaneous Medications [med rec comment] LAST DISCHARGE ON 06/04/20 WAS USED TO COMPILE MED LIST Allergies Coded Allergies: No Known Allergies (Unverified , 08/29/18) A-FIB/CHADSVASC A-FIB History Current/History of A-Fib/PAF?: No PAWEL GARCIA DO Jun 12, 2020 21:34
[2020-06-13 06:53] LABS: HEMATOCRIT 37.6 % (42.0-52.0); HEMOGLOBIN 12.6 g/dl (13.5-17.5); MEAN CORPUSCULAR HEMOGLOBIN 30.2 pg (27.0-33.0); MEAN CORPUSCULAR HGB CONC 33.5 g/dl (32.0-36.5); MEAN CORPUSCULAR VOLUME 90.2 fl (80.0-96.0); PLATELET COUNT, AUTOMATED 271 10^3/uL (150-450); RED BLOOD COUNT 4.17 10^6/uL (4.30-6.10); WHITE BLOOD COUNT 5.6 10^3/uL (4.0-10.0)
[2020-06-13 07:36] LABS: ALBUMIN 2.9 GM/DL (3.2-5.2); ALT/SGPT 112 U/L (12-78); BILIRUBIN,TOTAL 0.3 MG/DL (0.2-1.0); BLOOD UREA NITROGEN 18 MG/DL (7-18); CALCIUM LEVEL 8.5 MG/DL (8.5-10.1); CARBON DIOXIDE LEVEL 28 MEQ/L (21-32); CHLORIDE LEVEL 110 MEQ/L (98-107); CREATININE FOR GFR 0.73 MG/DL (0.70-1.30); GLOMERULAR FILTRATION RATE > 60.0 (>56); GLUCOSE, FASTING 93 MG/DL (70-100); POTASSIUM SERUM 4.6 MEQ/L (3.5-5.1); SODIUM LEVEL 141 MEQ/L (136-145); TOTAL PROTEIN 5.9 GM/DL (6.4-8.2)
[2020-06-13 08:07] VITALS: BP 100/59
[2020-06-13] MEDS: SERTRALINE 100 MG TAB PO SCH (08:54)
[2020-06-13] MEDS: buPROPion **XL** TABLET 150MG (WELLBUTRIN XL) PO SCH (08:54)
[2020-06-13] MEDS: CEFDINIR 300 MG CAP (OMNICEF) PO SCH ×2 (08:54→22:26)
[2020-06-13] MEDS: PANTOPRAZOLE 40MG TAB (PROTONIX) PO SCH ×2 (08:54→22:25)
[2020-06-13] MEDS: NICOTINE 14 MG/24 HR TRANSDERMAL TD SCH (08:57)
[2020-06-13] MEDS: TAMSULOSIN 0.4 MG CAP PO SCH (08:57)
[2020-06-13] MEDS: FLUTICASONE PROP 0.05% NASAL SPRAY 16 GM (FLONASE) SCH ×2 (08:57→21:00)
--- NOTE | 2020-06-13 12:53 | MHIPN ---
[facility] PROGRESS NOTE DATE: 06/13/2020 SUBJECTIVE: He reports he is a little better but still depressed. Has some persecutory delusions. OBJECTIVE: He is a 50-year-old male who was recently discharged from this facility. He is readmitted for paranoid or persecutory delusions. He was positive for amphetamine and PCP. He admitted to having consumed amphetamine before he came to the hospital. Patient has a long history of drug abuse and also has a history of psychosis and mood disorder. Currently saying that he has some improvement. MENTAL STATUS EXAMINATION: Casually dressed. Somewhat psychomotor retarded. Made good eye contact. Speech rate, rhythm, volume are good. Mood is depressed. Affect is constricted. Thought process linear, goal directed. Thought content: Denies any suicidal thoughts. Perception: Denied any hallucinations. Has some persecutory delusions. Denied any homicidal ideas. Insight and judgment are impaired. Memory, immediate, remote, recent, is good. DIAGNOSES: 1. Psychotic disorder, unspecified, rule out bipolar disorder with psychotic features. 2. Amphetamine use disorder. 3. Cannabis use disorder. LABORATORY DATA: He was positive for PCP and amphetamine. Chemistry: CMP within normal limits. CBC within normal limits. PLAN: Continue the current medication, Seroquel 300 mg at night, sertraline 100 mg in the morning, and Wellbutrin XL 150 mg once daily. ESTIMATED LENGTH OF STAY: 4-5 days. TIME SPENT ON THE PATIENT: 25 minutes.
[2020-06-13] MEDS ORDERED: OLANZapine ORAL DISINTEGRATING TAB 5MG PO PRN (14:45)
[2020-06-13] MEDS ORDERED: haloperidoL 1 MG TAB PO PRN (14:50)
[2020-06-13 16:52] VITALS: BP 120/84
[2020-06-13] MEDS ORDERED: diphenhydrAMINE 50MG CAP PO ONE (17:45)
[2020-06-13] MEDS ORDERED: haloperidoL 5 MG TAB PO ONE (17:45)
[2020-06-13] MEDS ORDERED: LORazepam 1 MG TAB PO ONE (17:45)
[2020-06-13] MEDS: traZODone 100 MG TAB PO SCH (22:26)
[2020-06-13] MEDS: QUEtiapine FUMARATE 100 MG TAB PO SCH (22:27)
[2020-06-14 06:00] VITALS: BP 124/78
[2020-06-14] MEDS: FLUTICASONE PROP 0.05% NASAL SPRAY 16 GM (FLONASE) SCH ×2 (09:00→21:00)
[2020-06-14] MEDS: TAMSULOSIN 0.4 MG CAP PO SCH (09:00)
[2020-06-14] MEDS: NICOTINE 14 MG/24 HR TRANSDERMAL TD SCH (09:00)
[2020-06-14] MEDS: SERTRALINE 100 MG TAB PO SCH (09:18)
[2020-06-14] MEDS: CEFDINIR 300 MG CAP (OMNICEF) PO SCH ×2 (09:18→20:00)
[2020-06-14] MEDS: PANTOPRAZOLE 40MG TAB (PROTONIX) PO SCH ×2 (09:18→20:00)
[2020-06-14] MEDS: buPROPion **XL** TABLET 150MG (WELLBUTRIN XL) PO SCH (09:18)
[2020-06-14 10:13] LABS: CHLAMYDIA DNA AMPLIFICATION NEGATIVE (NEGATIVE); GC DNA AMPLIFICATION NEGATIVE (NEGATIVE)
--- NOTE | 2020-06-14 10:47 | MHIPNPDOC ---
[facility] Progress Note Progress Note DATE OF SERVICE: 06/14/20 SUBJECTIVE: He reports he is a little better but still depressed. Has some persecutory delusions. OBJECTIVE: He is a 50-year-old male who was recently discharged from this facility. He is readmitted for paranoid or persecutory delusions. He was positive for amphetamine and PCP. He admitted to having consumed amphetamine before he came to the hospital. Patient has a long history of drug abuse and also has a history of psychosis and mood disorder. Currently saying that he has some improvement.Yesterday he lost his cool and became aggressive, and had to be medicated . Currently doing well calm and no agitation. MENTAL STATUS EXAMINATION: Casually dressed. Somewhat psychomotor retarded. Made good eye contact. Speech rate, rhythm, volume are good. Mood is depressed. Affect is constricted. Thought process linear, goal directed. Thought content: Denies any suicidal thoughts. Perception: Denied any hallucinations. Has some persecutory delusions. Denied any homicidal ideas. Insight and judgment are impaired. Memory, immediate, remote, recent, is good. DIAGNOSES: 1. Psychotic disorder, unspecified, rule out bipolar disorder with psychotic features. 2. Amphetamine use disorder. 3. Cannabis use disorder. LABORATORY DATA: He was positive for PCP and amphetamine. Chemistry: CMP within normal limits. CBC within normal limits. PLAN: Continue the current medication, Seroquel 300 mg at night, sertraline 100 mg in the morning, and Wellbutrin XL 150 mg once daily. ESTIMATED LENGTH OF STAY: 4-5 days. TIME SPENT ON THE PATIENT: 25 minutes. Vital Signs Vital Signs Date Time Temp Pulse Resp B/P (MAP) Pulse Ox O2 Delivery O2 Flow Rate FiO2 06/14/20 06:00 97.9 68 14 124/78 (93) 98 06/13/20 08:07 Room Air Laboratory Data 24H Labs Laboratory Tests 2 06/14/20 07:30: Chlamydia trachomatis DNA (CONNOR) NEGATIVE, Neisseria gonorrhoeae DNA (CONNOR) NEGATIVE Current Medications Current Medications Medications (Trade) Dose Ordered Sig/Esther Route PRN Reason Start Time Stop Time Status Last Admin Dose Admin Acetaminophen (Tylenol Tab) 650 mg Q6HP PRN PO HEADACHE or DISCOMFORT 06/11/20 11:45 Al Hydrox/Mg Hydrox/Simethicone (Mylanta) 30 ml Q4HP PRN PO HEARTBURN/INDIGESTION 4/8/21 11:45 Albuterol Sulfate (Proventil, Ventolin Hfa) 2 puff Q4H PRN INH SHORTNESS OF BREATH 06/11/20 13:40 Bupropion HCl (Wellbutrin Xl) 150 mg DAILY PO 06/12/20 09:00 06/14/20 09:18 Cefdinir (Omnicef) 300 mg BID PO 06/13/20 09:00 06/14/20 09:18 Diatrizoate Meglum/ Diatrizoate Sod (Gastrografin) 10 ml Q30M PO 06/12/20 18:45 06/12/20 19:21 DC Diphenhydramine HCl (Benadryl) 50 mg STAT STAT IM 06/11/20 15:55 06/11/20 15:58 DC 06/11/20 16:18 Diphenhydramine HCl (Benadryl) 50 mg STAT STAT PO 06/11/20 15:36 06/11/20 15:44 DC Fluticasone Propionate (Flonase 0.05% Nasal [place]) 1 spray BID NA 06/11/20 21:00 Haloperidol (Haldol) 2 mg Q6H PRN PO AGITATION 06/13/20 15:25 06/13/20 15:24 Haloperidol (Haldol) 2 mg Q6HP PRN PO AGITATION 06/13/20 14:50 06/13/20 15:23 DC Haloperidol (Haldol) 5 mg STAT STAT IM 06/11/20 15:55 06/11/20 15:58 DC 06/11/20 16:18 Haloperidol (Haldol) 5 mg STAT STAT PO 06/11/20 15:36 06/11/20 15:44 DC Home Med (Med Rec Complete!) ASDIRECTED XX 06/11/20 02:45 06/11/20 02:54 DC Lorazepam (Ativan) 2 mg STAT STAT IM 06/11/20 15:55 06/11/20 15:58 DC 06/11/20 16:19 Lorazepam (Ativan) 2 mg STAT STAT PO 06/10/20 17:10 06/10/20 17:11 DC 06/10/20 18:17 Lorazepam (Ativan) 2 mg STAT STAT PO 06/10/20 21:24 06/10/20 21:25 DC 06/10/20 21:44 Lorazepam (Ativan) 2 mg STAT STAT PO 06/10/20 23:05 06/10/20 23:06 DC 06/10/20 23:40 Lorazepam (Ativan) 2 mg STAT STAT PO 06/11/20 07:42 06/11/20 07:43 DC Lorazepam (Ativan) 2 mg STAT STAT PO 06/11/20 15:36 06/11/20 15:44 DC Magnesium Hydroxide (Milk Of Magnesia) 30 ml DAILYPRN PRN PO CONSTIPATION 06/11/20 11:45 Nicotine (Nicoderm Cq 14mg) 1 patch DAILY TD 06/11/20 09:00 Olanzapine (ZyPREXA ZYDIS) 5 mg Q6HP PRN PO ANXIETY/AGITATION 06/13/20 14:45 06/13/20 14:51 DC Pantoprazole Sodium (Protonix) 40 mg BID PO 06/11/20 21:00 06/14/20 09:18 Quetiapine Fumarate (SEROquel) 200 mg QPM PO 06/11/20 21:00 06/13/20 10:39 DC 06/12/20 20:02 Quetiapine Fumarate (SEROquel) 300 mg QPM PO 06/13/20 21:00 06/13/20 22:27 Sertraline HCl (Zoloft) 100 mg DAILY PO 06/12/20 09:00 06/14/20 09:18 Tamsulosin HCl (Flomax) 0.4 mg DAILY PO 06/12/20 09:00 Trazodone HCl (Desyrel) 50 mg QHSP PRN PO INSOMNIA 06/11/20 11:45 Cancel Trazodone HCl (Desyrel) 200 mg QHS PO 06/11/20 21:00 06/13/20 22:26 Allergies Coded Allergies: No Known Allergies (Unverified , 08/29/18) SHARON GONZALEZ MD Jun 14, 2020 10:47
[2020-06-14 19:17] VITALS: BP 102/59
[2020-06-14] MEDS: ACETAMINOPHEN TAB 650MG DOSE (2X325MG) PO PRN (19:37)
[2020-06-14] MEDS: traZODone 100 MG TAB PO SCH (20:00)
[2020-06-14] MEDS: QUEtiapine FUMARATE 100 MG TAB PO SCH (20:00)
[2020-06-15] MEDS: ACETAMINOPHEN TAB 650MG DOSE (2X325MG) PO PRN ×2 (05:30→23:38)
[2020-06-15 06:35] VITALS: BP 101/58
[2020-06-15] MEDS: FLUTICASONE PROP 0.05% NASAL SPRAY 16 GM (FLONASE) SCH ×2 (09:00→21:00)
[2020-06-15] MEDS: NICOTINE 14 MG/24 HR TRANSDERMAL TD SCH (09:00)
[2020-06-15] MEDS: PANTOPRAZOLE 40MG TAB (PROTONIX) PO SCH ×2 (09:09→21:08)
[2020-06-15] MEDS: TAMSULOSIN 0.4 MG CAP PO SCH (09:09)
[2020-06-15] MEDS: SERTRALINE 100 MG TAB PO SCH (09:09)
[2020-06-15] MEDS: buPROPion **XL** TABLET 150MG (WELLBUTRIN XL) PO SCH (09:09)
[2020-06-15] MEDS: CEFDINIR 300 MG CAP (OMNICEF) PO SCH ×2 (09:09→21:08)
--- NOTE | 2020-06-15 14:56 | MHIPNPDOC ---
[facility] Progress Note Progress Note DATE OF SERVICE: 06/15/20 HISTORY: Patient is a 50-year-old, single, disabled, domiciled male who was recently discharged from this facility on 06/04/2020. His admission was 06/01/2020 to 06/04/2020, and he was discharged home. He was brought back to [facility] on 06/05/2020 by emergency medical services (EMS) after he was found outside of [facility] acting very paranoid and delusional, most likely due to Winter that he reported using the day before. Patient has a long history of polysubstance abuse and bipolar disorder. VITAL SIGNS: See below. CURRENT MEDICATIONS: See below. MENTAL STATUS EXAMINATION: Patient is a 50-year-old, single, disabled, domiciled male who was recently discharged from this facility on 06/04/2020 found outside of [facility] acting very paranoid and delusional, most likely due to Winter that he reported using the day before. Speech: Is fluid, conversant, normal rate, tone and volume Language skills are intact Thought processes including: linear and goal oriented Thought content: denies depression and anxiety. Denies suicidal/homicidal ideation, planning or intent. Abstract reasoning, and computation: fair Description of associations: denies, none observed Description of abnormal or psychotic thoughts: denies, none observed. 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 Cannabis use disorder. ASSESSMENT: Patient reporting feeling depressed, suicidal, having auditory and visual hallucinations. Patient is often initially withdrawn and guarded in his admission. In today's interview he states that he needs to be transferred to [facility] for his continued suicidal thinking and depression. Patient does not want rehab although this was stressed. MANAGEMENT PLAN: Continue all medications. Reinforced need for Substance Use Treatment TIME SPENT: 25 minutes. Vital Signs Vital Signs Date Time Temp Pulse Resp B/P (MAP) Pulse Ox O2 Delivery O2 Flow Rate FiO2 06/15/20 06:35 97.4 65 12 101/58 (72) 97 Room Air Current Medications Current Medications Medications (Trade) Dose Ordered Sig/Esther Route PRN Reason Start Time Stop Time Status Last Admin Dose Admin Acetaminophen (Tylenol Tab) 650 mg Q6HP PRN PO HEADACHE or DISCOMFORT 06/11/20 11:45 06/15/20 05:30 Al Hydrox/Mg Hydrox/Simethicone (Mylanta) 30 ml Q4HP PRN PO HEARTBURN/INDIGESTION 06/11/20 11:45 Albuterol Sulfate (Proventil, Ventolin Hfa) 2 puff Q4H PRN INH SHORTNESS OF BREATH 06/11/20 13:40 Bupropion HCl (Wellbutrin Xl) 150 mg DAILY PO 06/12/20 09:00 06/15/20 09:09 Cefdinir (Omnicef) 300 mg BID PO 06/13/20 09:00 06/15/20 09:09 Diatrizoate Meglum/ Diatrizoate Sod (Gastrografin) 10 ml Q30M PO 06/12/20 18:45 06/12/20 19:21 DC Diphenhydramine HCl (Benadryl) 50 mg STAT STAT IM 06/11/20 15:55 06/11/20 15:58 DC 06/11/20 16:18 Diphenhydramine HCl (Benadryl) 50 mg STAT STAT PO 06/11/20 15:36 06/11/20 15:44 DC Fluticasone Propionate (Flonase 0.05% Nasal [place]) 1 spray BID NA 06/11/20 21:00 Haloperidol (Haldol) 2 mg Q6H PRN PO AGITATION 06/13/20 15:25 06/14/20 13:14 Haloperidol (Haldol) 2 mg Q6HP PRN PO AGITATION 06/13/20 14:50 06/13/20 15:23 DC Haloperidol (Haldol) 5 mg STAT STAT IM 06/11/20 15:55 06/11/20 15:58 DC 06/11/20 16:18 Haloperidol (Haldol) 5 mg STAT STAT PO 06/11/20 15:36 06/11/20 15:44 DC Home Med (Med Rec Complete!) ASDIRECTED XX 06/11/20 02:45 06/11/20 02:54 DC Lorazepam (Ativan) 2 mg STAT STAT IM 06/11/20 15:55 06/11/20 15:58 DC 06/11/20 16:19 Lorazepam (Ativan) 2 mg STAT STAT PO 06/10/20 17:10 06/10/20 17:11 DC 06/10/20 18:17 Lorazepam (Ativan) 2 mg STAT STAT PO 06/10/20 21:24 06/10/20 21:25 DC 06/10/20 21:44 Lorazepam (Ativan) 2 mg STAT STAT PO 06/10/20 23:05 06/10/20 23:06 DC 06/10/20 23:40 Lorazepam (Ativan) 2 mg STAT STAT PO 06/11/20 07:42 06/11/20 07:43 DC Lorazepam (Ativan) 2 mg STAT STAT PO 06/11/20 15:36 06/11/20 15:44 DC Magnesium Hydroxide (Milk Of Magnesia) 30 ml DAILYPRN PRN PO CONSTIPATION 06/11/20 11:45 Nicotine (Nicoderm Cq 14mg) 1 patch DAILY TD 06/11/20 09:00 Olanzapine (ZyPREXA ZYDIS) 5 mg Q6HP PRN PO ANXIETY/AGITATION 06/13/20 14:45 06/13/20 14:51 DC Pantoprazole Sodium (Protonix) 40 mg BID PO 06/11/20 21:00 06/15/20 09:09 Quetiapine Fumarate (SEROquel) 200 mg QPM PO 06/11/20 21:00 06/13/20 10:39 DC 06/12/20 20:02 Quetiapine Fumarate (SEROquel) 300 mg QPM PO 06/13/20 21:00 06/14/20 20:00 Sertraline HCl (Zoloft) 100 mg DAILY PO 06/12/20 09:00 06/15/20 09:09 Tamsulosin HCl (Flomax) 0.4 mg DAILY PO 06/12/20 09:00 06/15/20 09:09 Trazodone HCl (Desyrel) 50 mg QHSP PRN PO INSOMNIA 06/11/20 11:45 Cancel Trazodone HCl (Desyrel) 200 mg QHS PO 06/11/20 21:00 06/14/20 20:00 Allergies Coded Allergies: No Known Allergies (Unverified , 08/29/18) MARIANA BHAKTA NP Jun 15, 2020 14:49
[2020-06-15 16:00] VITALS: BP 100/58
[2020-06-15] MEDS: traZODone 100 MG TAB PO SCH (21:08)
[2020-06-15] MEDS: QUEtiapine FUMARATE 100 MG TAB PO SCH (21:08)
[2020-06-16 06:55] VITALS: BP 101/65
[2020-06-16] MEDS: SERTRALINE 100 MG TAB PO SCH (08:20)
[2020-06-16] MEDS: TAMSULOSIN 0.4 MG CAP PO SCH (08:20)
[2020-06-16] MEDS: PANTOPRAZOLE 40MG TAB (PROTONIX) PO SCH ×2 (08:20→20:17)
[2020-06-16] MEDS: CEFDINIR 300 MG CAP (OMNICEF) PO SCH ×2 (08:20→20:17)
[2020-06-16] MEDS: buPROPion **XL** TABLET 150MG (WELLBUTRIN XL) PO SCH (08:20)
[2020-06-16] MEDS: FLUTICASONE PROP 0.05% NASAL SPRAY 16 GM (FLONASE) SCH ×2 (08:21→20:54)
[2020-06-16] MEDS: NICOTINE 14 MG/24 HR TRANSDERMAL TD SCH (08:21)
[2020-06-16 16:26] VITALS: BP 121/72
[2020-06-16 16:42] LABS: RSV AMPLIFICATION NEGATIVE (NEGATIVE)
--- NOTE | 2020-06-16 16:56 | MHIPNPDOC ---
[facility] Progress Note Progress Note DATE OF SERVICE: 06/16/20 HISTORY: Patient is a 50-year-old, single, disabled, domiciled male who was recently discharged from this facility on 06/04/2020. His admission was 06/01/2020 to 06/04/2020, and he was discharged home. He was brought back to [facility] on 06/05/2020 by emergency medical services (EMS) after he was found outside of [facility] acting very paranoid and delusional, most likely due to Winter that he reported using the day before. Patient has a long history of polysubstance abuse and bipolar disorder. VITAL SIGNS: See below. CURRENT MEDICATIONS: See below. MENTAL STATUS EXAMINATION: Patient is a 50-year-old, single, disabled, domiciled male who was recently discharged from this facility on 06/04/2020 found outside of [facility] acting very paranoid and delusional, most likely due to Winter that he reported using the day before. Speech: Is fluid, conversant, normal rate, tone and volume Language skills are intact Thought processes including: linear and goal oriented Thought content: denies depression and anxiety. Denies suicidal/homicidal ideation, planning or intent. Abstract reasoning, and computation: fair Description of associations: denies, none observed Description of abnormal or psychotic thoughts: denies, none observed. 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 Cannabis use disorder. ASSESSMENT: Patient reports continued depression, states "I am confused about my life. If I leave here, I will shoot up again and end up ." Fears that he will while using and states "I don't want to go to retirement, but I have thought about starting a fight with someone so I can be forced into not using. Fears that he is falling apart, "I don't want to be alive." He states that he has never felt that way he does today, reports that his friends/family report a change in his behaviors: he is agitated, aggressive and paranoid. He states that he was unaware that he had PCP in his urine drug screen. C/o right side buttock pain and restless legs, declined Requip for restless leg MANAGEMENT PLAN: Continue all medications. Reinforced need for Substance Use Treatment, will add Cogentin to medication regiment. TIME SPENT: 25 minutes. Vital Signs Vital Signs Date Time Temp Pulse Resp B/P (MAP) Pulse Ox O2 Delivery O2 Flow Rate FiO2 06/16/20 16:26 97.8 80 17 121/72 (88) 96 Room Air Laboratory Data 24H Labs Laboratory Tests 2 06/16/20 15:44: Current Medications Current Medications Medications (Trade) Dose Ordered Sig/Esther Route PRN Reason Start Time Stop Time Status Last Admin Dose Admin Acetaminophen (Tylenol Tab) 650 mg Q6HP PRN PO HEADACHE or DISCOMFORT 06/11/20 11:45 06/15/20 23:38 Al Hydrox/Mg Hydrox/Simethicone (Mylanta) 30 ml Q4HP PRN PO HEARTBURN/INDIGESTION 06/11/20 11:45 Albuterol Sulfate (Proventil, Ventolin Hfa) 2 puff Q4H PRN INH SHORTNESS OF BREATH 06/11/20 13:40 Bupropion HCl (Wellbutrin Xl) 150 mg DAILY PO 06/12/20 09:00 06/16/20 08:20 Cefdinir (Omnicef) 300 mg BID PO 06/13/20 09:00 06/16/20 08:20 Clonidine HCl (Catapres) 0.1 mg BID PO 06/16/20 21:00 Diatrizoate Meglum/ Diatrizoate Sod (Gastrografin) 10 ml Q30M PO 06/12/20 18:45 06/12/20 19:21 DC Diphenhydramine HCl (Benadryl) 50 mg STAT STAT IM 06/11/20 15:55 06/11/20 15:58 DC 06/11/20 16:18 Diphenhydramine HCl (Benadryl) 50 mg STAT STAT PO 06/11/20 15:36 06/11/20 15:44 DC Fluticasone Propionate (Flonase 0.05% Nasal [place]) 1 spray BID NA 06/11/20 21:00 Haloperidol (Haldol) 2 mg Q6H PRN PO AGITATION 06/13/20 15:25 06/14/20 13:14 Haloperidol (Haldol) 2 mg Q6HP PRN PO AGITATION 06/13/20 14:50 06/13/20 15:23 DC Haloperidol (Haldol) 5 mg STAT STAT IM 06/11/20 15:55 06/11/20 15:58 DC 06/11/20 16:18 Haloperidol (Haldol) 5 mg STAT STAT PO 06/11/20 15:36 06/11/20 15:44 DC Home Med (Med Rec Complete!) ASDIRECTED XX 06/11/20 02:45 06/11/20 02:54 DC Lorazepam (Ativan) 2 mg STAT STAT IM 06/11/20 15:55 06/11/20 15:58 DC 06/11/20 16:19 Lorazepam (Ativan) 2 mg STAT STAT PO 06/10/20 17:10 06/10/20 17:11 DC 06/10/20 18:17 Lorazepam (Ativan) 2 mg STAT STAT PO 06/10/20 21:24 06/10/20 21:25 DC 06/10/20 21:44 Lorazepam (Ativan) 2 mg STAT STAT PO 06/10/20 23:05 06/10/20 23:06 DC 06/10/20 23:40 Lorazepam (Ativan) 2 mg STAT STAT PO 06/11/20 07:42 06/11/20 07:43 DC Lorazepam (Ativan) 2 mg STAT STAT PO 06/11/20 15:36 06/11/20 15:44 DC Magnesium Hydroxide (Milk Of Magnesia) 30 ml DAILYPRN PRN PO CONSTIPATION 06/11/20 11:45 Nicotine (Nicoderm Cq 14mg) 1 patch DAILY TD 06/11/20 09:00 Olanzapine (ZyPREXA ZYDIS) 5 mg Q6HP PRN PO ANXIETY/AGITATION 06/13/20 14:45 06/13/20 14:51 DC Pantoprazole Sodium (Protonix) 40 mg BID PO 06/11/20 21:00 06/16/20 08:20 Quetiapine Fumarate (SEROquel) 200 mg QPM PO 06/11/20 21:00 06/13/20 10:39 DC 06/12/20 20:02 Quetiapine Fumarate (SEROquel) 300 mg QPM PO 06/13/20 21:00 06/15/20 21:08 Sertraline HCl (Zoloft) 100 mg DAILY PO 06/12/20 09:00 06/16/20 08:20 Tamsulosin HCl (Flomax) 0.4 mg DAILY PO 06/12/20 09:00 06/16/20 08:20 Trazodone HCl (Desyrel) 50 mg QHSP PRN PO INSOMNIA 06/11/20 11:45 Cancel Trazodone HCl (Desyrel) 200 mg QHS PO 06/11/20 21:00 06/15/20 21:08 Allergies Coded Allergies: No Known Allergies (Unverified , 08/29/18) MARIANA BHAKTA SUPERVISOR FERTILIZER PROCESSING Jun 16, 2020 16:44
[2020-06-16] MEDS ORDERED: BENZTROPINE 0.5 MG TAB PO ONE (17:00)
[2020-06-16] MEDS: traZODone 100 MG TAB PO SCH (20:17)
[2020-06-16] MEDS: QUEtiapine FUMARATE 100 MG TAB PO SCH (20:17)
[2020-06-16] MEDS: cloNIDine 0.1MG TABLET PO SCH (20:17)
[2020-06-17] MEDS: ACETAMINOPHEN TAB 650MG DOSE (2X325MG) PO PRN ×2 (04:33→20:31)
[2020-06-17 06:10] VITALS: BP 99/58
[2020-06-17] MEDS: cloNIDine 0.1MG TABLET PO SCH ×2 (08:05→20:30)
[2020-06-17] MEDS: SERTRALINE 100 MG TAB PO SCH (08:08)
[2020-06-17] MEDS: NICOTINE 14 MG/24 HR TRANSDERMAL TD SCH (08:08)
[2020-06-17] MEDS: CEFDINIR 300 MG CAP (OMNICEF) PO SCH ×2 (08:08→20:29)
[2020-06-17] MEDS: TAMSULOSIN 0.4 MG CAP PO SCH (08:08)
[2020-06-17] MEDS: buPROPion **XL** TABLET 150MG (WELLBUTRIN XL) PO SCH (08:08)
[2020-06-17] MEDS: PANTOPRAZOLE 40MG TAB (PROTONIX) PO SCH ×2 (08:08→20:29)
[2020-06-17] MEDS: FLUTICASONE PROP 0.05% NASAL SPRAY 16 GM (FLONASE) SCH ×2 (08:08→20:32)
[2020-06-17] MEDS ORDERED: BENZTROPINE 0.5 MG TAB PO PRN (09:00)
--- NOTE | 2020-06-17 10:54 | MHIPNPDOC ---
[facility] Progress Note Progress Note DATE OF SERVICE: 06/17/20 HISTORY: Patient is a 50-year-old, single, disabled, domiciled male who was recently discharged from this facility on 06/04/2020. His admission was 06/01/2020 to 06/04/2020, and he was discharged home. He was brought back to [facility] on 06/05/2020 by emergency medical services (EMS) after he was found outside of [facility] acting very paranoid and delusional, most likely due to Winter that he reported using the day before. Patient has a long history of polysubstance abuse and bipolar disorder. VITAL SIGNS: See below. CURRENT MEDICATIONS: See below. MENTAL STATUS EXAMINATION: Patient is a 50-year-old, single, disabled, domiciled male who was recently discharged from this facility on 06/04/2020 found outside of [facility] acting very paranoid and delusional, most likely due to Winter that he reported using the day before. Speech: Is fluid, conversant, normal rate, tone and volume Language skills are intact Thought processes including: linear and goal oriented Thought content: reports depression and anxiety. Reporting fleeting suicidal/homicidal ideation, planning or intent. Abstract reasoning, and co mputation: fair Description of associations: denies, none observed Description of abnormal or psychotic thoughts: reports auditory hallucinations, none observed. 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 Cannabis use disorder. 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 He states that he cannot return to home because he feels strongly that he will overdose and/or try to kill himself. He reports that he has auditory hallucinations but they are not command hallucinations. He states that he does not want Rehab because he will fail as oftentimes he can get his drugs in these Rehab places. Reinforced with the patient that he may not meet criteria for rehab. Patient is frustrated and states "I will use and overdose or kill myself if I am discharge." TIME SPENT: 25 minutes. Vital Signs Vital Signs Date Time Temp Pulse Resp B/P (MAP) Pulse Ox O2 Delivery O2 Flow Rate FiO2 06/17/20 08:39 Room Air 06/17/20 08:05 92/57 06/17/20 06:10 97.3 84 18 96 Laboratory Data 24H Labs Laboratory Tests 2 06/16/20 15:44: Coronavirus (COVID-19)(PCR) NEGATIVE, Influenza Type A (RT-PCR) NEGATIVE, Influenza Type B (RT-PCR) NEGATIVE, Respiratory Syncytial Virus (PCR) NEGATIVE Current Medications Current Medications Medications (Trade) Dose Ordered Sig/Esther Route PRN Reason Start Time Stop Time Status Last Admin Dose Admin Acetaminophen (Tylenol Tab) 650 mg Q6HP PRN PO HEADACHE or DISCOMFORT 06/11/20 11:45 06/17/20 04:33 Al Hydrox/Mg Hydrox/Simethicone (Mylanta) 30 ml Q4HP PRN PO HEARTBURN/INDIGESTION 06/11/20 11:45 Albuterol Sulfate (Proventil, Ventolin Hfa) 2 puff Q4H PRN INH SHORTNESS OF BREATH 06/11/20 13:40 Benztropine Mesylate (Cogentin) 0.5 mg BIDP PRN PO EPS/Restless legs 06/17/20 09:00 Bupropion HCl (Wellbutrin Xl) 150 mg DAILY PO 06/12/20 09:00 06/17/20 08:08 Cefdinir (Omnicef) 300 mg BID PO 06/13/20 09:00 06/17/20 08:08 Clonidine HCl (Catapres) 0.1 mg BID PO 06/16/20 21:00 06/16/20 20:17 Diatrizoate Meglum/ Diatrizoate Sod (Gastrografin) 10 ml Q30M PO 06/12/20 18:45 06/12/20 19:21 DC Diphenhydramine HCl (Benadryl) 50 mg STAT STAT IM 06/11/20 15:55 06/11/20 15:58 DC 06/11/20 16:18 Diphenhydramine HCl (Benadryl) 50 mg STAT STAT PO 06/11/20 15:36 06/11/20 15:44 DC Fluticasone Propionate (Flonase 0.05% Nasal [place]) 1 spray BID NA 06/11/20 21:00 Haloperidol (Haldol) 2 mg Q6H PRN PO AGITATION 06/13/20 15:25 06/14/20 13:14 Haloperidol (Haldol) 2 mg Q6HP PRN PO AGITATION 06/13/20 14:50 06/13/20 15:23 DC Haloperidol (Haldol) 5 mg STAT STAT IM 06/11/20 15:55 06/11/20 15:58 DC 06/11/20 16:18 Haloperidol (Haldol) 5 mg STAT STAT PO 06/11/20 15:36 06/11/20 15:44 DC Home Med (Med Rec Complete!) ASDIRECTED XX 06/11/20 02:45 06/11/20 02:54 DC Lorazepam (Ativan) 2 mg STAT STAT IM 06/11/20 15:55 06/11/20 15:58 DC 06/11/20 16:19 Lorazepam (Ativan) 2 mg STAT STAT PO 06/10/20 17:10 06/10/20 17:11 DC 06/10/20 18:17 Lorazepam (Ativan) 2 mg STAT STAT PO 06/10/20 21:24 06/10/20 21:25 DC 06/10/20 21:44 Lorazepam (Ativan) 2 mg STAT STAT PO 06/10/20 23:05 06/10/20 23:06 DC 06/10/20 23:40 Lorazepam (Ativan) 2 mg STAT STAT PO 06/11/20 07:42 06/11/20 07:43 DC Lorazepam (Ativan) 2 mg STAT STAT PO 06/11/20 15:36 06/11/20 15:44 DC Magnesium Hydroxide (Milk Of Magnesia) 30 ml DAILYPRN PRN PO CONSTIPATION 06/11/20 11:45 Nicotine (Nicoderm Cq 14mg) 1 patch DAILY TD 06/11/20 09:00 Olanzapine (ZyPREXA ZYDIS) 5 mg Q6HP PRN PO ANXIETY/AGITATION 06/13/20 14:45 06/13/20 14:51 DC Pantoprazole Sodium (Protonix) 40 mg BID PO 06/11/20 21:00 06/17/20 08:08 Quetiapine Fumarate (SEROquel) 200 mg QPM PO 06/11/20 21:00 06/13/20 10:39 DC 06/12/20 20:02 Quetiapine Fumarate (SEROquel) 300 mg QPM PO 06/13/20 21:00 06/16/20 20:17 Sertraline HCl (Zoloft) 100 mg DAILY PO 06/12/20 09:00 06/17/20 08:08 Tamsulosin HCl (Flomax) 0.4 mg DAILY PO 06/12/20 09:00 06/17/20 08:08 Trazodone HCl (Desyrel) 50 mg QHSP PRN PO INSOMNIA 06/11/20 11:45 Cancel Trazodone HCl (Desyrel) 200 mg QHS PO 06/11/20 21:00 06/16/20 20:17 Allergies Coded Allergies: No Known Allergies (Unverified , 08/29/18) MARIANA BHAKTA PRECISION LENS GRINDER APPRENTICE Jun 17, 2020 10:54
[2020-06-17 16:32] VITALS: BP 103/55
[2020-06-17] MEDS: QUEtiapine FUMARATE 100 MG TAB PO SCH (20:29)
[2020-06-17] MEDS: traZODone 100 MG TAB PO SCH (20:29)
[2020-06-18 06:28] VITALS: BP 90/60
[2020-06-18] MEDS: CEFDINIR 300 MG CAP (OMNICEF) PO SCH ×2 (08:37→20:30)
[2020-06-18] MEDS: TAMSULOSIN 0.4 MG CAP PO SCH (08:38)
[2020-06-18] MEDS: PANTOPRAZOLE 40MG TAB (PROTONIX) PO SCH ×2 (08:39→20:31)
[2020-06-18] MEDS: cloNIDine 0.1MG TABLET PO SCH ×2 (08:39→20:31)
[2020-06-18] MEDS: FLUTICASONE PROP 0.05% NASAL SPRAY 16 GM (FLONASE) SCH ×2 (08:39→21:00)
[2020-06-18] MEDS: SERTRALINE 100 MG TAB PO SCH (08:39)
[2020-06-18] MEDS: buPROPion **XL** TABLET 150MG (WELLBUTRIN XL) PO SCH (08:39)
[2020-06-18] MEDS: NICOTINE 14 MG/24 HR TRANSDERMAL TD SCH (08:40)
[2020-06-18] MEDS ORDERED: haloperidoL 5 MG TAB PO PRN (12:05)
--- NOTE | 2020-06-18 15:17 | MHIPNPDOC ---
[facility] Progress Note Progress Note DATE OF SERVICE: 06/18/20 HISTORY: Patient is a 50-year-old, single, disabled, domiciled male who was recently discharged from this facility on 06/04/2020. His admission was 06/01/2020 to 06/04/2020, and he was discharged home. He was brought back to [facility] on 06/05/2020 by emergency medical services (EMS) after he was found outside of [facility] acting very paranoid and delusional, most likely due to Winter that he reported using the day before. Patient has a long history of polysubstance abuse and bipolar disorder. VITAL SIGNS: See below. CURRENT MEDICATIONS: See below. MENTAL STATUS EXAMINATION: Patient is a 50-year-old, single, disabled, domiciled male who was recently discharged from this facility on 06/04/2020 found outside of [facility] acting very paranoid and delusional, most likely due to Winter that he reported using the day before. Speech: Is fluid, conversant, normal rate, tone and volume Language skills are intact Thought processes including: linear and goal oriented Thought content: reports depression and anxiety. Reporting suicidal/homicidal ideation, planning or intent. Abstract reasoning, and computation: fair Description of associations: denies, none observed Description of abnormal or psychotic thoughts: reports auditory hallucinations, none observed. 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 Cannabis use disorder. ASSESSMENT: In today's interview patient states that he understands that he cannot request shelter hospitalization at [facility] as he does not meet criteria. He s feels strongly that he will overdose and/or try to kill himself. Remains frustrated and states "If I am discharge - I cannot leave until I know that I can get on Methadone because I will go back to using." States that he should be able to get Methadone because he was getting it at [facility] when he was admitted. Reviewed with patient that unless he had been prescribed this he cannot then have it continued. Patient wants to be able to go to [facility] and start the Methadone Program, reports that he is motivated to "get off drugs." Treatment Plan: Continue all medications as ordered, will communicate with [facility] to establish patient's referral for Methadone Program TIME SPENT: 25 minutes. Vital Signs Vital Signs Date Time Temp Pulse Resp B/P (MAP) Pulse Ox O2 Delivery O2 Flow Rate FiO2 06/18/20 08:39 109/71 06/18/20 06:28 97.0 68 16 97 Room Air Current Medications Current Medications Medications (Trade) Dose Ordered Sig/Esther Route PRN Reason Start Time Stop Time Status Last Admin Dose Admin Acetaminophen (Tylenol Tab) 650 mg Q6HP PRN PO HEADACHE or DISCOMFORT 06/11/20 11:45 06/17/20 20:31 Al Hydrox/Mg Hydrox/Simethicone (Mylanta) 30 ml Q4HP PRN PO HEARTBURN/INDIGESTION 06/11/20 11:45 Albuterol Sulfate (Proventil, Ventolin Hfa) 2 puff Q4H PRN INH SHORTNESS OF BREATH 06/11/20 13:40 Benztropine Mesylate (Cogentin) 0.5 mg BIDP PRN PO EPS/Restless legs 06/17/20 09:00 Bupropion HCl (Wellbutrin Xl) 150 mg DAILY PO 06/12/20 09:00 06/18/20 08:39 Cefdinir (Omnicef) 300 mg BID PO 06/13/20 09:00 06/18/20 08:37 Clonidine HCl (Catapres) 0.1 mg BID PO 06/16/20 21:00 06/18/20 08:39 Diatrizoate Meglum/ Diatrizoate Sod (Gastrografin) 10 ml Q30M PO 06/12/20 18:45 06/12/20 19:21 DC Diphenhydramine HCl (Benadryl) 50 mg STAT STAT IM 06/11/20 15:55 06/11/20 15:58 DC 06/11/20 16:18 Diphenhydramine HCl (Benadryl) 50 mg STAT STAT PO 06/11/20 15:36 06/11/20 15:44 DC Fluticasone Propionate (Flonase 0.05% Nasal [place]) 1 spray BID NA 06/11/20 21:00 Haloperidol (Haldol) 2 mg Q6H PRN PO AGITATION 06/13/20 15:25 06/18/20 12:16 DC 06/17/20 18:06 Haloperidol (Haldol) 2 mg Q6HP PRN PO AGITATION 06/13/20 14:50 06/13/20 15:23 DC Haloperidol (Haldol) 5 mg Q6HP PRN PO AGITATION 06/18/20 12:05 Haloperidol (Haldol) 5 mg STAT STAT IM 06/11/20 15:55 06/11/20 15:58 DC 06/11/20 16:18 Haloperidol (Haldol) 5 mg STAT STAT PO 06/11/20 15:36 06/11/20 15:44 DC Home Med (Med Rec Complete!) ASDIRECTED XX 06/11/20 02:45 06/11/20 02:54 DC Lorazepam (Ativan) 2 mg STAT STAT IM 06/11/20 15:55 06/11/20 15:58 DC 06/11/20 16:19 Lorazepam (Ativan) 2 mg STAT STAT PO 06/10/20 17:10 06/10/20 17:11 DC 06/10/20 18:17 Lorazepam (Ativan) 2 mg STAT STAT PO 06/10/20 21:24 06/10/20 21:25 DC 06/10/20 21:44 Lorazepam (Ativan) 2 mg STAT STAT PO 06/10/20 23:05 06/10/20 23:06 DC 06/10/20 23:40 Lorazepam (Ativan) 2 mg STAT STAT PO 06/11/20 07:42 06/11/20 07:43 DC Lorazepam (Ativan) 2 mg STAT STAT PO 06/11/20 15:36 06/11/20 15:44 DC Magnesium Hydroxide (Milk Of Magnesia) 30 ml DAILYPRN PRN PO CONSTIPATION 06/11/20 11:45 Nicotine (Nicoderm Cq 14mg) 1 patch DAILY TD 06/11/20 09:00 Olanzapine (ZyPREXA ZYDIS) 5 mg Q6HP PRN PO ANXIETY/AGITATION 06/13/20 14:45 06/13/20 14:51 DC Pantoprazole Sodium (Protonix) 40 mg BID PO 06/11/20 21:00 06/18/20 08:39 Quetiapine Fumarate (SEROquel) 200 mg QPM PO 06/11/20 21:00 06/13/20 10:39 DC 06/12/20 20:02 Quetiapine Fumarate (SEROquel) 300 mg QPM PO 06/13/20 21:00 06/17/20 20:29 Sertraline HCl (Zoloft) 100 mg DAILY PO 06/12/20 09:00 06/18/20 08:39 Tamsulosin HCl (Flomax) 0.4 mg DAILY PO 06/12/20 09:00 06/18/20 08:38 Trazodone HCl (Desyrel) 50 mg QHSP PRN PO INSOMNIA 06/11/20 11:45 Cancel Trazodone HCl (Desyrel) 200 mg QHS PO 06/11/20 21:00 06/17/20 20:29 Allergies Coded Allergies: No Known Allergies (Unverified , 08/29/18) MARIANA BHAKTA [employer] Jun 18, 2020 15:17
[2020-06-18 18:29] VITALS: BP 123/58
[2020-06-18] MEDS: QUEtiapine FUMARATE 100 MG TAB PO SCH (20:30)
[2020-06-18] MEDS: traZODone 100 MG TAB PO SCH (20:30)
[2020-06-19 06:33] VITALS: BP 111/55
[2020-06-19] MEDS: cloNIDine 0.1MG TABLET PO SCH ×2 (08:24→20:09)
[2020-06-19] MEDS: TAMSULOSIN 0.4 MG CAP PO SCH (08:24)
[2020-06-19] MEDS: PANTOPRAZOLE 40MG TAB (PROTONIX) PO SCH ×2 (08:24→20:09)
[2020-06-19] MEDS: SERTRALINE 100 MG TAB PO SCH (08:24)
[2020-06-19] MEDS: buPROPion **XL** TABLET 150MG (WELLBUTRIN XL) PO SCH (08:24)
[2020-06-19] MEDS: CEFDINIR 300 MG CAP (OMNICEF) PO SCH ×2 (08:24→20:09)
[2020-06-19] MEDS: FLUTICASONE PROP 0.05% NASAL SPRAY 16 GM (FLONASE) SCH ×2 (08:25→20:11)
[2020-06-19] MEDS: NICOTINE 14 MG/24 HR TRANSDERMAL TD SCH ×2 (08:25→19:05)
--- NOTE | 2020-06-19 11:33 | MHIPNPDOC ---
[facility] Progress Note Progress Note DATE OF SERVICE: 06/19/20 HISTORY: Patient is a 50-year-old, single, disabled, domiciled male who was recently discharged from this facility on 06/04/2020. His admission was 06/01/2020 to 06/04/2020, and he was discharged home. He was brought back to [facility] on 06/05/2020 by emergency medical services (EMS) after he was found outside of [facility] acting very paranoid and delusional, most likely due to Winter that he reported using the day before. Patient has a long history of polysubstance abuse and bipolar disorder. VITAL SIGNS: See below. CURRENT MEDICATIONS: See below. MENTAL STATUS EXAMINATION: Patient is a 50-year-old, single, disabled, domiciled male who was recently discharged from this facility on 06/04/2020 found outside of [facility] acting very paranoid and delusional, most likely due to Winter that he reported using the day before. He is dressed appropriately, making good eye contact, appears to have some psychomotor restlessness but reports that this has been improving Speech: Is fluid, conversant, normal rate, tone and volume Language skills are intact Thought processes including: linear and goal oriented Thought content: reports continued depression and anxiety. Reporting suicidal/homicidal ideation, planning or intent. Abstract reasoning, and computation: fair Description of associations: denies, none observed Description of abnormal or psychotic thoughts: reports auditory hallucinations, none observed. 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 Cannabis use disorder. ASSESSMENT: Reports that he was having difficult sleeping due to roommate being disruptive multiple times. Complains of intermittent flow during urination, states that urine is no longer yosvany but yellow. Denies any burning but complains of hesitancy. States that he continues to be depressed and anxious, fleeting suicidal ideations believing that if he is not in the Methadone Clinic upon discharge that he will overdose. He is social on the unit, attending some groups and cooperative with treatment. He is hopeful for discharge and working with his [employer] for additional services. Treatment Plan: Continue all medications as ordered, will communicate with [facility] to establish patient's referral for Methadone Program TIME SPENT: 25 minutes. Vital Signs Vital Signs Date Time Temp Pulse Resp B/P (MAP) Pulse Ox O2 Delivery O2 Flow Rate FiO2 06/19/20 08:24 100/58 06/19/20 06:33 97.2 74 18 97 Room Air Current Medications Current Medications Medications (Trade) Dose Ordered Sig/Esther Route PRN Reason Start Time Stop Time Status Last Admin Dose Admin Acetaminophen (Tylenol Tab) 650 mg Q6HP PRN PO HEADACHE or DISCOMFORT 06/11/20 11:45 06/17/20 20:31 Al Hydrox/Mg Hydrox/Simethicone (Mylanta) 30 ml Q4HP PRN PO HEARTBURN/INDIGESTION 06/11/20 11:45 Albuterol Sulfate (Proventil, Ventolin Hfa) 2 puff Q4H PRN INH SHORTNESS OF BREATH 06/11/20 13:40 Benztropine Mesylate (Cogentin) 0.5 mg BIDP PRN PO EPS/Restless legs 06/17/20 09:00 Bupropion HCl (Wellbutrin Xl) 150 mg DAILY PO 06/12/20 09:00 06/19/20 08:24 Cefdinir (Omnicef) 300 mg BID PO 06/13/20 09:00 06/19/20 08:24 Clonidine HCl (Catapres) 0.1 mg BID PO 06/16/20 21:00 06/18/20 20:31 Diatrizoate Meglum/ Diatrizoate Sod (Gastrografin) 10 ml Q30M PO 06/12/20 18:45 06/12/20 19:21 DC Diphenhydramine HCl (Benadryl) 50 mg STAT STAT IM 06/11/20 15:55 06/11/20 15:58 DC 06/11/20 16:18 Diphenhydramine HCl (Benadryl) 50 mg STAT STAT PO 06/11/20 15:36 06/11/20 15:44 DC Fluticasone Propionate (Flonase 0.05% Nasal [place]) 1 spray BID NA 06/11/20 21:00 Haloperidol (Haldol) 2 mg Q6H PRN PO AGITATION 06/13/20 15:25 06/18/20 12:16 DC 06/17/20 18:06 Haloperidol (Haldol) 2 mg Q6HP PRN PO AGITATION 06/13/20 14:50 06/13/20 15:23 DC Haloperidol (Haldol) 5 mg Q6HP PRN PO AGITATION 06/18/20 12:05 Haloperidol (Haldol) 5 mg STAT STAT IM 06/11/20 15:55 06/11/20 15:58 DC 06/11/20 16:18 Haloperidol (Haldol) 5 mg STAT STAT PO 06/11/20 15:36 06/11/20 15:44 DC Home Med (Med Rec Complete!) ASDIRECTED XX 06/11/20 02:45 06/11/20 02:54 DC Lorazepam (Ativan) 2 mg STAT STAT IM 06/11/20 15:55 06/11/20 15:58 DC 06/11/20 16:19 Lorazepam (Ativan) 2 mg STAT STAT PO 06/10/20 17:10 06/10/20 17:11 DC 06/10/20 18:17 Lorazepam (Ativan) 2 mg STAT STAT PO 06/10/20 21:24 06/10/20 21:25 DC 06/10/20 21:44 Lorazepam (Ativan) 2 mg STAT STAT PO 06/10/20 23:05 06/10/20 23:06 DC 06/10/20 23:40 Lorazepam (Ativan) 2 mg STAT STAT PO 06/11/20 07:42 06/11/20 07:43 DC Lorazepam (Ativan) 2 mg STAT STAT PO 06/11/20 15:36 06/11/20 15:44 DC Magnesium Hydroxide (Milk Of Magnesia) 30 ml DAILYPRN PRN PO CONSTIPATION 06/11/20 11:45 Nicotine (Nicoderm Cq 14mg) 1 patch DAILY TD 06/11/20 09:00 Olanzapine (ZyPREXA ZYDIS) 5 mg Q6HP PRN PO ANXIETY/AGITATION 06/13/20 14:45 06/13/20 14:51 DC Pantoprazole Sodium (Protonix) 40 mg BID PO 06/11/20 21:00 06/19/20 08:24 Quetiapine Fumarate (SEROquel) 200 mg QPM PO 06/11/20 21:00 06/13/20 10:39 DC 06/12/20 20:02 Quetiapine Fumarate (SEROquel) 300 mg QPM PO 06/13/20 21:00 06/18/20 20:30 Sertraline HCl (Zoloft) 100 mg DAILY PO 06/12/20 09:00 06/19/20 08:24 Tamsulosin HCl (Flomax) 0.4 mg DAILY PO 06/12/20 09:00 06/19/20 08:24 Trazodone HCl (Desyrel) 50 mg QHSP PRN PO INSOMNIA 06/11/20 11:45 Cancel Trazodone HCl (Desyrel) 200 mg QHS PO 06/11/20 21:00 06/18/20 20:30 Allergies Coded Allergies: No Known Allergies (Unverified , 08/29/18) MARIANA BHAKTA VP SALES Jun 19, 2020 11:22
[2020-06-19 16:15] VITALS: BP 112/65
[2020-06-19] MEDS: traZODone 100 MG TAB PO SCH (20:09)
[2020-06-19] MEDS: QUEtiapine FUMARATE 100 MG TAB PO SCH (20:09)
[2020-06-19 20:45] VITALS: BP 117/61
[2020-06-19] MEDS: guaiFENesin 200 MG TAB PO SCH (21:00)
[2020-06-19] MEDS: ACETAMINOPHEN TAB 650MG DOSE (2X325MG) PO PRN (21:08)
--- NOTE | 2020-06-19 22:38 | IPNPDOC ---
Text Note Date of Service The patient was seen on 06/19/20. NOTE I was alerted by [facility] nursing staff that patient was complaining of URI type symptoms and had spiked a fever with the highest reading being 100.9. I saw and evaluated this patient who states that he has been experiencing general malaise, fevers, chills, congestion, cough and dysuria for several days. No sob or chest pain. Patient had negative COVID screen on 06/11 upon admission and a UA performed yesterday 06/18 was negative. On exam, patient appeared anxious, was shivering. Exam notable for possible rales in RLL and mild erythema of posterior pharynx without exudate. Tylenol for fevers, mucinex for symptoms relief. Will recheck respiratory panel VS,Fishbone, I+O VS, Fishbone, I+O Vital Signs Date Time Temp Pulse Resp B/P (MAP) Pulse Ox O2 Delivery O2 Flow Rate FiO2 06/19/20 20:45 100.5 83 20 117/61 (79) 96 Room Air I&O- Last 24 Hours up to 6 AM 06/19/20 06:00 Output Total 200 ml Balance -200 ml KORIN MILLER Jun 19, 2020 22:38
[2020-06-20] MEDS: ACETAMINOPHEN TAB 650MG DOSE (2X325MG) PO PRN ×3 (06:40→23:20)
[2020-06-20 07:38] VITALS: BP 116/83
[2020-06-20] MEDS: guaiFENesin 200 MG TAB PO SCH ×2 (08:10→20:01)
[2020-06-20] MEDS: CEFDINIR 300 MG CAP (OMNICEF) PO SCH (08:10)
[2020-06-20] MEDS: TAMSULOSIN 0.4 MG CAP PO SCH (08:10)
[2020-06-20] MEDS: SERTRALINE 100 MG TAB PO SCH (08:11)
[2020-06-20] MEDS: PANTOPRAZOLE 40MG TAB (PROTONIX) PO SCH ×2 (08:11→20:01)
[2020-06-20] MEDS: buPROPion **XL** TABLET 150MG (WELLBUTRIN XL) PO SCH (08:11)
[2020-06-20] MEDS: cloNIDine 0.1MG TABLET PO SCH ×2 (08:11→20:03)
[2020-06-20] MEDS: NICOTINE 14 MG/24 HR TRANSDERMAL TD SCH (08:11)
[2020-06-20] MEDS: FLUTICASONE PROP 0.05% NASAL SPRAY 16 GM (FLONASE) SCH ×2 (08:12→21:00)
--- NOTE | 2020-06-20 11:41 | REP ---
INDICATION: fever, rales. COMPARISON: Comparison chest x-ray December 28, 2019.. TECHNIQUE: Portable semi-erect chest x-ray. FINDINGS: The lungs are symmetrically aerated. Pleural angles are sharp. There is mild platelike atelectasis in the right perihilar region with hazy opacity surrounding this. Infiltrate in the right lung suspected. Heart is not enlarged. IMPRESSION: New infiltrate right mid lung zone suspected with some platelike atelectasis. <Electronically signed by Gaurav Medina > 06/20/20 [id number]
[2020-06-20 12:34] LABS: ALBUMIN 3.6 GM/DL (3.2-5.2); BILIRUBIN,DIRECT 0.2 MG/DL (0.0-0.2); BILIRUBIN,TOTAL 0.8 MG/DL (0.2-1.0); TOTAL PROTEIN 7.1 GM/DL (6.4-8.2)
[2020-06-20 12:35] LABS: BLOOD UREA NITROGEN 12 MG/DL (7-18); CALCIUM LEVEL 9.1 MG/DL (8.5-10.1); CARBON DIOXIDE LEVEL 31 mmol/L (20-29); CHLORIDE LEVEL 102 MEQ/L (98-107); CREATININE FOR GFR 0.92 MG/DL (0.70-1.30); GLOMERULAR FILTRATION RATE > 60.0 (>56); GLUCOSE, FASTING 88 MG/DL (70-100); POTASSIUM SERUM 3.8 MEQ/L (3.5-5.1); SODIUM LEVEL 138 MEQ/L (136-145)
[2020-06-20 12:49] LABS: BASO % 0.2 % (0.0-1.0); EOS # 0.2 10^3/uL (0.0-0.5); EOS % 1.1 % (0.0-3.0); HEMATOCRIT 38.7 % (42.0-52.0); HEMOGLOBIN 12.8 g/dl (13.5-17.5); LYMPH # 1.3 10^3/uL (1.5-5.0); MEAN CORPUSCULAR HEMOGLOBIN 29.6 pg (27.0-33.0); MEAN CORPUSCULAR HGB CONC 33.1 g/dl (32.0-36.5); MEAN CORPUSCULAR VOLUME 89.6 fl (80.0-96.0); MONO # 1.1 10^3/uL (0.0-0.8); MONO % 6.7 % (2.0-8.0); NEUTROPHILS # 13.4 10^3/uL (1.5-8.5); NEUTROPHILS % 83.4 % (36.0-66.0); PLATELET COUNT, AUTOMATED 298 10^3/uL (150-450); RED BLOOD COUNT 4.32 10^6/uL (4.30-6.10)
[2020-06-20] MEDS: MOM 30ML SUSPENSION UDC PO SCH (15:51)
[2020-06-20] MEDS: GASTROGRAFIN SOLUTION 30ML PO SCH ×2 (15:57→16:28)
[2020-06-20 16:10] VITALS: BP 103/64
[2020-06-20] MEDS ORDERED: LevoFLOXacin 750 MG TABLET PO ONE (17:00)
[2020-06-20] MEDS ORDERED: ISOVUE-370 76% 100ML VIAL As Ordered ONE (17:23)
--- NOTE | 2020-06-20 18:08 | REPVR ---
PROCEDURE INFORMATION: Exam: CT Abdomen And Pelvis With Contrast Exam date and time: 06/20/2020 5:38 PM Age: 50 years old Clinical indication: Abdominal tenderness; Additional info: Umbilical hernia with tenderness TECHNIQUE: Imaging protocol: Computed tomography of the abdomen and pelvis with contrast. Radiation optimization: All CT scans at this facility use at least one of these dose optimization techniques: automated exposure control; mA and/or kV adjustment per patient size (includes targeted exams where dose is matched to clinical indication); or iterative reconstruction. Contrast material: ISOVUE 370; Contrast volume: 100 ml; Contrast route: INTRAVENOUS (IV); COMPARISON: CT ABD PELVIS W/O CONTRAST 10/22/2019 12:51 PM FINDINGS: Lungs: Infiltrate with air bronchograms demonstrated in the medial segment of the right middle lobe. Bibasilar atelectasis. Liver: There is a diffuse decrease in hepatic parenchymal density, consistent with steatosis. Gallbladder and bile ducts: Normal. No calcified stones. No ductal dilation. Pancreas: Normal. No ductal dilation. Spleen: There is mild splenomegaly with a maximum span of 13 centimeters. No focal abnormalities demonstrated. Adrenal glands: Normal. No mass. Kidneys and ureters: Normal. No hydronephrosis. Stomach and bowel: There is increased feces throughout the colon consistent with constipation. There is gastric distention with retained secretions. Clinical correlation to exclude gastroparesis or gastric outlet obstruction suggested. Appendix: No evidence of appendicitis. Intraperitoneal space: Unremarkable. No free air. No significant fluid collection. Vasculature: The aortoiliac vessels demonstrate moderate atherosclerotic calcification. Lymph nodes: Unremarkable. No enlarged lymph nodes. Urinary bladder: Unremarkable as visualized. Reproductive: Unremarkable as visualized. Bones/joints: Unremarkable. No acute fracture. Soft tissues: There is a small umbilical hernia. There is no evidence of incarceration. IMPRESSION: 1. There is a diffuse decrease in hepatic parenchymal density, consistent with steatosis. 2. There is mild splenomegaly with a maximum span of 13 centimeters. No focal abnormalities demonstrated. 3. There is increased feces throughout the colon consistent with constipation. 4. There is gastric distention with retained secretions. Clinical correlation to exclude gastroparesis or gastric outlet obstruction suggested. Electronically signed by: Devan Foley On 06/20/2020 18:08:31 PM
[2020-06-20] MEDS: traZODone 100 MG TAB PO SCH (20:01)
[2020-06-20] MEDS: SENOKOT S TAB PO SCH (20:01)
[2020-06-20] MEDS: QUEtiapine FUMARATE 100 MG TAB PO SCH (20:01)
--- NOTE | 2020-06-20 22:22 | IPNPDOC ---
Subjective Date Seen The patient was seen on 06/20/20. Subjective Chief Complaint/HPI Notified by Nurse that patient was complaining of abdominal pain and that his umbilical hernia was bothering him. Last night he had a low grade fever with chills, body aches and cough and congestion. Was seen by out PA. had a resp panel done which was negative was given tylenol which helped. On my interview patient complained of severe constipation. he reported that he usually had 1 to 2 bowel movements a week but this time he has not had a bowel movement for 2 weeks. he took prune juice this am without any result yet. he complained of pe riumbilical pain and reports that when he sits up it hurts him and he also feels that both his lower quadrant of the abdomen are hurting and he may have hernias there also. He feels some abdominal cramps. Labs showed leucocytosis. CXr showed RML infiltrates and CT abd and pelvis with iv and oral contrast showed There is increased feces throughout the colon consistent with constipation. There is ga stric distention with retained secretions. Clinical correlation to exclude gastroparesis or gastric outlet obstruction suggested. There is a small umbilical hernia. There is no evidence of incarcerat ion. Objective Physical Examination General Exam: Positive: Alert, Cooperative, No Acute Distress Eye Exam: Positive: PERRLA, Conjunctiva & lids normal, EOMI; Negative: Sclera icteric ENT Exam: Positive: Atraumatic, Mucous membr. moist/pink, Pharynx Normal Neck Exam: Positive: Supple; Negative: JVD, thyromegaly Chest Exam: Positive: Clear to auscultation, Normal air movement Heart Exam: Positive: Rate Normal, Regular Rhythm, Normal S1, Normal S2; Negative: Murmurs, Rubs Abdomen Exam: Positive: Normal bowel sounds, Soft, Tenderness (in the periumbilical and epigastric area); Negative: Hepatospenomegaly Extremity Exam: Positive: Normal pulses; Negative: Clubbing, Cyanosis, Edema Skin Exam: Positive: Nl turgor and temperature; Negative: Rash, Breakdown Assessment /Plan Assessment Abdominal pain likely due to severe constipation . will have to rule out gastroparesis / gastric outlet obstruction once his constipation is resolved . Aggressive bowel regimen. Gastric dilatation ? gastric outlet obstruction. will get an upper GI series/ gastric emptying study once constipation is resolved. Small umbilical hernia without any incarceration Constipation CT abd shows colon loaded with feces aggressive bowel regimen. RML pneumonia has been on cefdinir for 7 days. Again had a low grade fever last night with elevated WBCs will get blood cultures inview of his h/o IV drug use. will change antibiotic to levofloxacin will check ekg after 3 doses to assess for any qtc prolongation. Hepatitis C untreated transaminitis present on admission resolved. IV drug use Tobacco use Depression /Anxiety /Bipolar disorder as per psychiatry Plan/VTE VTE Prophylaxis Ordered?: No VS, I&O, 24H, Fishbone Vital Signs/I&O Vital Signs Date Time Temp Pulse Resp B/P (MAP) Pulse Ox O2 Delivery O2 Flow Rate FiO2 06/20/20 20:03 108/66 06/20/20 16:10 98.2 74 16 99 Room Air Laboratory Data 24H LABS Laboratory Tests 2 06/20/20 11:40: Immature Granulocyte % (Auto) 0.6, Neutrophils (%) (Auto) 83.4H, Lymphocytes (%) (Auto) 8.0L, Monocytes (%) (Auto) 6.7, Eosinophils (%) (Auto) 1.1, Basophils (%) (Auto) 0.2, Neutrophils # (Auto) 13.4H, Lymphocytes # (Auto) 1.3L, Monocytes # (Auto) 1.1H, Eosinophils # (Auto) 0.2, Basophils # (Auto) 0.0, Nucleated Red Blood Cells % (auto) 0.0, Anion Gap 5L, Glomerular Filtration Rate > 60.0, Calcium Level 9.1, Total Bilirubin 0.8, Direct Bilirubin 0.2, Aspartate Amino Transf (AST/SGOT) 107, Alanine Aminotransferase (ALT/SGPT) 170H, Alkaline Phosphatase 88, Total Protein 7.1, Albumin 3.6, Albumin/Globulin Ratio 1.0 CBC/BMP Laboratory Tests 06/20/20 11:40 Microbiology Microbiology 06/20/20 Blood Culture, Received Pending 06/20/20 Blood Culture, Received Pending 06/20/20 Respiratory Virus Panel (PCR) (PRERNA) - Final, Complete 06/11/20 Respiratory Virus Panel (PCR) (PRERNA) - Final, Complete MAGUE ROSE MD Jun 20, 2020 22:08
[2020-06-21 06:00] VITALS: BP 104/61
[2020-06-21] MEDS: LevoFLOXacin 750 MG TABLET PO SCH (06:18)
[2020-06-21] MEDS: cloNIDine 0.1MG TABLET PO SCH ×2 (08:20→20:23)
[2020-06-21] MEDS: NICOTINE 14 MG/24 HR TRANSDERMAL TD SCH (08:20)
[2020-06-21] MEDS: PANTOPRAZOLE 40MG TAB (PROTONIX) PO SCH ×2 (08:20→20:22)
[2020-06-21] MEDS: guaiFENesin 200 MG TAB PO SCH ×2 (08:20→20:23)
[2020-06-21] MEDS: SERTRALINE 100 MG TAB PO SCH (08:20)
[2020-06-21] MEDS: TAMSULOSIN 0.4 MG CAP PO SCH (08:21)
[2020-06-21] MEDS: buPROPion **XL** TABLET 150MG (WELLBUTRIN XL) PO SCH (08:21)
[2020-06-21] MEDS: MOM 30ML SUSPENSION UDC PO SCH (08:22)
[2020-06-21] MEDS: FLUTICASONE PROP 0.05% NASAL SPRAY 16 GM (FLONASE) SCH ×2 (08:23→20:30)
[2020-06-21] MEDS: FLEET ENEMA PR SCH (13:14)
[2020-06-21 16:52] VITALS: BP 122/74
[2020-06-21] MEDS: SENOKOT S TAB PO SCH (20:23)
[2020-06-21] MEDS: traZODone 100 MG TAB PO SCH (20:23)
[2020-06-21] MEDS: QUEtiapine FUMARATE 100 MG TAB PO SCH (20:23)
[2020-06-22] MEDS: ACETAMINOPHEN TAB 650MG DOSE (2X325MG) PO PRN (02:36)
[2020-06-22 06:08] VITALS: BP 110/68
[2020-06-22] MEDS: LevoFLOXacin 750 MG TABLET PO SCH (06:09)
[2020-06-22 09:00] VITALS: BP 89/55
[2020-06-22] MEDS: cloNIDine 0.1MG TABLET PO SCH (09:00)
[2020-06-22] MEDS: FLUTICASONE PROP 0.05% NASAL SPRAY 16 GM (FLONASE) SCH (09:00)
[2020-06-22] MEDS: FLEET ENEMA PR SCH (09:00)
[2020-06-22] MEDS: NICOTINE 14 MG/24 HR TRANSDERMAL TD SCH ×2 (09:00→11:12)
[2020-06-22] MEDS: buPROPion **XL** TABLET 150MG (WELLBUTRIN XL) PO SCH (09:08)
[2020-06-22] MEDS: guaiFENesin 200 MG TAB PO SCH (09:08)
[2020-06-22] MEDS: PANTOPRAZOLE 40MG TAB (PROTONIX) PO SCH (09:08)
[2020-06-22] MEDS: SERTRALINE 100 MG TAB PO SCH (09:08)
[2020-06-22] MEDS: TAMSULOSIN 0.4 MG CAP PO SCH (09:10)
[2020-06-22] MEDS: MOM 30ML SUSPENSION UDC PO SCH (09:11)
--- NOTE | 2020-06-22 10:21 | MHIPNPDOC ---
[facility] Progress Note Progress Note DATE OF SERVICE: 06/22/20 History; Patient is a 50-year-old, single, disabled, domiciled male who was recently discharged from this facility on 06/04/2020. His admission was 06/01/2020 to 06/04/2020, and he was discharged home. He was brought back to [facility] on 06/05/2020 by emergency medical services (EMS) after he was found outside of [facility] acting very paranoid and delusional, most likely due to Winter that he reported using the day before. Patient has a long history of polysubstance abuse and bipolar disorder. VITAL SIGNS: See below. CURRENT MEDICATIONS: See below. MENTAL STATUS EXAMINATION: Patient is a 50-year-old, single, disabled, domiciled male who was recently discharged from this facility on 06/04/2020 found outside of [facility] acting very paranoid and delusional, most likely due to Winter that he reported using the day before. He is dressed appropriately, making good eye contact, appears to have some psychomotor restlessness but reports that this has been improving Speech: Is fluid, conversant, normal rate, tone and volume Language skills are intact Thought processes including: linear and goal oriented Thought content: Reports decreased depression and continued anxiety. Denies suicidal/homicidal ideation, planning or intent. Abstract reasoning, and computation: fair Description of associations: denies, none observed Description of abnormal or psychotic thoughts: Denies auditory hallucinations, none observed. Judgment: fair Insight: fair Orientation: alert and oriented to person, place, time and situation Recent and remote memory: intact Attention span and concentration: good Language: expansive Fund of knowledge: average Mood: Euthymic affect and congruent with mood. 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 Cannabis use disorder. ASSESSMENT: Patient seen this morning. Reports decreased depression. He says he signed paperwork for potential discharge but states that he does not have housing. States that he is trying to get hold of his ed case manager to help him find housing. He reports increased fatigue and requesting to have his Wellbutrin in divided doses. Complains of hernia pain. Patient was seem by hospitalist on 06/20/20 and started on Levaquin. He is motivated for discharge but is afraid of going to place where he will have the opportunity to use substances again. Treatment Plan: Continue all medications as ordered, will communicate with [facility] to establish patient's referral for Methadone Program TIME SPENT: 25 minutes. Vital Signs Vital Signs Date Time Temp Pulse Resp B/P (MAP) Pulse Ox O2 Delivery O2 Flow Rate FiO2 06/22/20 09:00 89/55 06/22/20 06:08 97.6 98 18 99 Room Air Current Medications Current Medications Medications (Trade) Dose Ordered Sig/Esther Route PRN Reason Start Time Stop Time Status Last Admin Dose Admin Acetaminophen (Tylenol Tab) 650 mg Q6HP PRN PO HEADACHE or DISCOMFORT 06/11/20 11:45 06/22/20 02:36 Al Hydrox/Mg Hydrox/Simethicone (Mylanta) 30 ml Q4HP PRN PO HEARTBURN/INDIGESTION 06/11/20 11:45 Albuterol Sulfate (Proventil, Ventolin Hfa) 2 puff Q4H PRN INH SHORTNESS OF BREATH 06/11/20 13:40 Benztropine Mesylate (Cogentin) 0.5 mg BIDP PRN PO EPS/Restless legs 06/17/20 09:00 Bupropion HCl (Wellbutrin Xl) 150 mg DAILY PO 06/12/20 09:00 06/22/20 09:08 Cefdinir (Omnicef) 300 mg BID PO 06/13/20 09:00 06/20/20 15:15 DC 06/20/20 08:10 Clonidine HCl (Catapres) 0.1 mg BID PO 06/16/20 21:00 06/21/20 20:23 Diatrizoate Meglum/ Diatrizoate Sod (Gastrografin) 10 ml Q30M PO 06/20/20 16:00 06/20/20 16:31 DC 06/20/20 16:28 Diatrizoate Meglum/ Diatrizoate Sod (Gastrografin) 10 ml Q30M PO 06/12/20 18:45 06/12/20 19:21 DC Diphenhydramine HCl (Benadryl) 50 mg STAT STAT IM 06/11/20 15:55 06/11/20 15:58 DC 06/11/20 16:18 Diphenhydramine HCl (Benadryl) 50 mg STAT STAT PO 06/11/20 15:36 06/11/20 15:44 DC Fluticasone Propionate (Flonase 0.05% Nasal [place]) 1 spray BID NA 06/11/20 21:00 Guaifenesin (Robitussin Tab) 400 mg BID PO 06/19/20 21:00 06/22/20 09:08 Haloperidol (Haldol) 2 mg Q6H PRN PO AGITATION 06/13/20 15:25 06/18/20 12:16 DC 06/17/20 18:06 Haloperidol (Haldol) 2 mg Q6HP PRN PO AGITATION 06/13/20 14:50 06/13/20 15:23 DC Haloperidol (Haldol) 5 mg Q6HP PRN PO AGITATION 06/18/20 12:05 Haloperidol (Haldol) 5 mg STAT STAT IM 06/11/20 15:55 06/11/20 15:58 DC 06/11/20 16:18 Haloperidol (Haldol) 5 mg STAT STAT PO 06/11/20 15:36 06/11/20 15:44 DC Home Med (Med Rec Complete!) ASDIRECTED XX 06/11/20 02:45 06/11/20 02:54 DC Levofloxacin (Levaquin) 750 mg DAILY@06 PO 06/21/20 06:00 06/22/20 06:09 Lorazepam (Ativan) 2 mg STAT STAT IM 06/11/20 15:55 06/11/20 15:58 DC 06/11/20 16:19 Lorazepam (Ativan) 2 mg STAT STAT PO 06/10/20 17:10 06/10/20 17:11 DC 06/10/20 18:17 Lorazepam (Ativan) 2 mg STAT STAT PO 06/10/20 21:24 06/10/20 21:25 DC 06/10/20 21:44 Lorazepam (Ativan) 2 mg STAT STAT PO 06/10/20 23:05 06/10/20 23:06 DC 06/10/20 23:40 Lorazepam (Ativan) 2 mg STAT STAT PO 06/11/20 07:42 06/11/20 07:43 DC Lorazepam (Ativan) 2 mg STAT STAT PO 06/11/20 15:36 06/11/20 15:44 DC Magnesium Hydroxide (Milk Of Magnesia) 30 ml DAILY PO 06/20/20 09:00 06/22/20 09:11 Magnesium Hydroxide (Milk Of Magnesia) 30 ml DAILYPRN PRN PO CONSTIPATION 06/11/20 11:45 06/20/20 15:15 DC Miscellaneous (Unresolved Clarification Entry) SEE LABEL COMMENTS DAILY XX 06/20/20 09:00 06/20/20 15:21 DC Nicotine (Nicoderm Cq 14mg) 1 patch DAILY TD 06/11/20 09:00 06/21/20 08:20 Olanzapine (ZyPREXA ZYDIS) 5 mg Q6HP PRN PO ANXIETY/AGITATION 06/13/20 14:45 06/13/20 14:51 DC Pantoprazole Sodium (Protonix) 40 mg BID PO 06/11/20 21:00 06/22/20 09:08 Quetiapine Fumarate (SEROquel) 200 mg QPM PO 06/11/20 21:00 06/13/20 10:39 DC 06/12/20 20:02 Quetiapine Fumarate (SEROquel) 300 mg QPM PO 06/13/20 21:00 06/21/20 20:23 Senna/Docusate Sodium (Senokot S) 2 tab QHS PO 06/20/20 21:00 06/21/20 20:23 Sertraline HCl (Zoloft) 100 mg DAILY PO 06/12/20 09:00 06/22/20 09:08 Sodium Biphosphate/ Sodium Phosphate (Fleet Enema) 1 ea DAILY DC 06/21/20 09:00 06/21/20 13:14 Tamsulosin HCl (Flomax) 0.4 mg DAILY PO 06/12/20 09:00 06/22/20 09:10 Trazodone HCl (Desyrel) 50 mg QHSP PRN PO INSOMNIA 06/11/20 11:45 Cancel Trazodone HCl (Desyrel) 200 mg QHS PO 06/11/20 21:00 06/21/20 20:23 Allergies Coded Allergies: No Known Allergies (Unverified , 08/29/18) MARIANA BHAKTA NP Jun 22, 2020 10:14
[2020-06-22] MEDS ORDERED: QUET100T2 PO (10:44)
[2020-06-22] MEDS ORDERED: ALBU8.5H INH (10:44)
[2020-06-22] MEDS ORDERED: PANT40TA29 PO (10:44)
[2020-06-22] MEDS ORDERED: NICO14PA TD (10:44)
[2020-06-22] MEDS ORDERED: CLONI1TA PO (10:44)
[2020-06-22] MEDS ORDERED: FLON1SPR (10:44)
[2020-06-22] MEDS ORDERED: FLOM0.4C39 PO (10:44)
[2020-06-22] MEDS ORDERED: ZOLO100T PO (10:44)
[2020-06-22] MEDS ORDERED: BUPR150T12 PO (10:44)
--- NOTE | 2020-06-22 10:58 | MHDSPDOC ---
[facility] Discharge Summary Discharge Summary DATE OF ADMISSION: Jun 11, 2020 at 11:42 DATE OF DISCHARGE: 06/22/2020. 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 Cannabis use disorder. REASON FOR ADMISSION: Patient is a 50-year-old, single, disabled, domiciled male who was recently discharged from this facility on 06/04/2020. His admission was 06/01/2020 to 06/04/2020, and he was discharged home. He was brought back to [facility] on 06/05/2020 by emergency medical services (EMS) after he was found outside of [facility] acting very paranoid and delusional, most likely due to Winter that he reported using the day before. Patient has a long history of polysubstance abuse and bipolar disorder. CONSULTANTS INVOLVED: See Medical H + P by Hospitalist TREATMENT AND PROGRESS ON THE UNIT: Patient was admitted to the [facility] on a 9.39 legal status he was afforded the following treatment modalities: 1) Individual Therapy 2) Group Therapy 3) Medication Management 4) Milieu Therapy 5) Safe Environment HOSPITAL COURSE: Patient was admitted to [facility] on a 9.39 legal status. Many times during this hospitalization he reported that he was having fleeting suicidal ideations, feeling that he would relapse, overdose or commit suicide. He reports that he has poor supports. No longer speaking with his children as they as "fed up" He continued to lament that he could not go to Rehab stating that he had opportunity to start using there because there was so many people offering him drugs. Patient seen this morning. Reports decreased depression. He says he signed paperwork for potential discharge but states that he does not have housing. States that he is trying to get hold of his pillowcase turner to help him find housing. He reports increased fatigue and requesting to have his Wellbutrin in divided doses. Complains of hernia pain. Patient was seem by hospitalist on 06/20/20 and started on Levaquin. He is motivated for discharge but is afraid of going to place where he will have the opportunity to use substances again. In today's session he wanted to be discharged today after he was confirmed a room at the [facility]. DISCHARGE ASSESSMENT: In today's interview, patient is alert and oriented, pts dress is appropriate. Hygiene and grooming is well-kempt. Smiles on approach and is pleasant and engaged in the interview. Denies depression and anxiety. Denies suicidal and homicidal ideation, planning or intent. Denies and is not observed with jon, psychotic symptoms of delusions, bizarre thinking, obsessions, paranoia, ruminations illogical thoughts, flight of ideas or having poor insight and judgement. Patient has normal mentation, declines further hospitalization on a voluntary status and meets criteria for discharge today. Patient encouraged to return to hospital if symptoms worsen or change and encouraged to call unit if he/she/they needs to speak to provider for questions regarding medications or care. MENTAL STATUS EXAMINATION ON DISCHARGE: Patient is a -year old male, who is . Speech: Is fluid, conversant, normal rate, tone and volume Language skills are intact Thought processes including: linear and goal oriented Thought content: denies depression and anxiety. Denies suicidal/homicidal ideation, planning or intent. Abstract reasoning, and computation: fair Description of associations: denies, none observed Description of abnormal or psychotic thoughts: denies, none observed. Judgment: fair Insight: fair Orientation: alert and oriented to person, place, time and situation Recent and remote memory: intact Attention span and concentration: good Language: expansive Fund of knowledge: average Mood: Euthymic Mood Affect: reactive MEDICATIONS ON DISCHARGE: See Medication Reconciliation PLAN/FOLLOWUP ARRANGEMENTS: Patient being discharged to [facility]/ [facility]. Follow up with [facility]. The amount of time spent in the coordination of care for this patient was approximately 25 minutes. ETOH/Disorder Med Rx ETOH/DRUG DISORDER RX: Offrd @ d/c & pt refused Vital Signs/I&Os Vital Signs Date Time Temp Pulse Resp B/P (MAP) Pulse Ox O2 Delivery O2 Flow Rate FiO2 06/22/20 09:00 89/55 06/22/20 06:08 97.6 98 18 99 Room Air Laboratory Data Microbiology Microbiology 06/20/20 Blood Culture - Preliminary, Resulted No growth after 24 hours . All specim... 06/20/20 Blood Culture - Preliminary, Resulted No growth after 24 hours . All specim... 06/20/20 Respiratory Virus Panel (PCR) (PRERNA) - Final, Complete Medications Scheduled Bupropion Hcl (Bupropion Xl) 150 Mg Tab.er.24h, 150 MG PO DAILY for Depression, #7 Clonidine Hcl (Clonidine HCl) 0.1 Mg Tablet, 0.1 MG PO BID for anxiety, #14 Fluticasone Propionate (Flonase Allergy Relief) 9.9 Ml [place].susp, 1 SPRAY NA BID for allergy, #1 Nicotine (Nicotine Patch) 14 Mg Patch.td24, 1 PATCH TD DAILY for nicotine withdrawal, #7 Pantoprazole Sodium (Pantoprazole Sodium) 40 Mg Tablet.dr, 40 MG PO BID for acid reflux, #14 Quetiapine Fumarate (Quetiapine Fumarate) 100 Mg Tablet, 300 MG PO QPM for Insomnia, #21 Sertraline Hcl (Zoloft) 100 Mg Tablet, 100 MG PO DAILY for Depression and anxiety, #7 Tamsulosin HCl (Flomax) 0.4 Mg Capsule, 0.4 MG PO DAILY for BPH, #7 Scheduled PRN Albuterol Sulfate (Albuterol Sulfate Hfa) 8.5 Gm Hfa.aer.ad, 2 PUFFS INH Q4H PRN for SHORTNESS OF BREATH, #1 Allergies Coded Allergies: No Known Allergies (Unverified , 08/29/18) MARIANA BHAKTA [employer] Jun 22, 2020 10:50
--- NOTE | 2020-06-23 20:23 | ECGEPIP ---
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
== END 2020-06-22 12:15 | disposition home or self-care (01) | DRG 750 ==
LOC: M ED 15:42 → M ED INP 06-11 11:42 → M PSY 06-11 15:44
PROVIDERS: ADMIT Psychiatry & Neurology Psychiatry; ATTEND Psychiatry & Neurology Psychiatry
DX: F20.9 Schizophrenia, unspecified (principal); J18.9 Pneumonia, unspecified organism; R45.851 Suicidal ideations; F15.150 Other stimulant abuse with stimulant-induced psychotic disorder with delusions; F12.10 Cannabis abuse, uncomplicated; K59.00 Constipation, unspecified; K42.9 Umbilical hernia without obstruction or gangrene; Z81.8 Family history of other mental and behavioral disorders; Z81.3 Family history of other psychoactive substance abuse and dependence; Z91.5 Personal history of self-harm; F17.200 Nicotine dependence, unspecified, uncomplicated; R30.0 Dysuria; R10.819 Abdominal tenderness, unspecified site; Z20.822 Contact with and (suspected) exposure to COVID-19; Z63.8 Other specified problems related to primary support group

== ENCOUNTER 2020-06-22 21:49 | Emergency (ER) | payer MEDICAID ==
[~2020-06-22] VITALS: Ht 165.1 cm; Wt 59.0 kg
[~2020-06-22 21:49] MED LIST changes: +NICO14PA TD
[2020-06-22 22:51] LABS: HEMOGLOBIN 11.9 g/dl (13.5-17.5); MEAN CORPUSCULAR HEMOGLOBIN 30.1 pg (27.0-33.0); MEAN CORPUSCULAR VOLUME 88.4 fl (80.0-96.0); PLATELET COUNT, AUTOMATED 295 10^3/uL (150-450); RED BLOOD COUNT 3.96 10^6/uL (4.30-6.10); WHITE BLOOD COUNT 8.2 10^3/uL (4.0-10.0)
[2020-06-22] MEDS ORDERED: LORazepam 2 MG TAB PO ONE (22:55)
[2020-06-22 23:31] LABS: ACETAMINOPHEN LEVEL < 2.0 UG/ML (10.0-30.0); ALBUMIN 3.2 GM/DL (3.2-5.2); ALT/SGPT 121 U/L (12-78); AMPHETAMINES LEVEL URINE NEGATIVE (NEGATIVE); BARBITURATES URINE NEGATIVE (NEGATIVE); BENZODIAZEPINES URINE NEGATIVE (NEGATIVE); BILIRUBIN,DIRECT 0.1 MG/DL (0.0-0.2); BILIRUBIN,TOTAL 0.4 MG/DL (0.2-1.0); BLOOD UREA NITROGEN 8 MG/DL (7-18); CALCIUM LEVEL 8.5 MG/DL (8.5-10.1); CANNABINOIDS URINE NEGATIVE (NEGATIVE); CARBON DIOXIDE LEVEL 29 MEQ/L (21-32); CHLORIDE LEVEL 103 MEQ/L (98-107); COCAINE METABOLITE URINE NEGATIVE (NEGATIVE); CREATININE FOR GFR 0.76 MG/DL (0.70-1.30); ETHYL ALCOHOL (ETHANOL) < 0.003 % (0.000-0.010); GLOMERULAR FILTRATION RATE > 60.0 (>56); GLUCOSE, FASTING 102 MG/DL (70-100); METHADONE URINE NEGATIVE (NEGATIVE); OPIATES URINE NEGATIVE (NEGATIVE); PHENCYCLIDINE URINE NEGATIVE (NEGATIVE); POTASSIUM SERUM 3.9 MEQ/L (3.5-5.1); SALICYLATE LEVEL < 1.7 MG/DL (5.0-30.0); SODIUM LEVEL 138 MEQ/L (136-145); TOTAL PROTEIN 6.5 GM/DL (6.4-8.2)
[2020-06-23 06:44] LABS: RSV AMPLIFICATION NEGATIVE (NEGATIVE)
[2020-06-23] MEDS ORDERED: cloNIDine 0.1MG TABLET PO SCH (09:00)
[2020-06-23] MEDS ORDERED: buPROPion **XL** TABLET 150MG (WELLBUTRIN XL) PO SCH (09:00)
[2020-06-23] MEDS ORDERED: SERTRALINE 100 MG TAB PO SCH (09:00)
[2020-06-23] MEDS ORDERED: PANTOPRAZOLE 40MG TAB (PROTONIX) PO SCH ×3 (09:00→11:27)
[2020-06-23] MEDS ORDERED: TAMSULOSIN 0.4 MG CAP PO SCH (09:00)
[2020-06-23 14:26] VITALS: BP 141/88
--- NOTE | 2020-06-23 16:06 | MHCRPDOC ---
[facility] Consultation Consultation DATE OF CONSULTATION: 06/23/20 CONSULTATION REQUESTED BY: JOSH Moses REASON FOR CONSULTATION: Patient seen in the ED for a disposition. RELEVANT HISTORY: This patient has a long history of psychiatric admissions to [facility] of greater 25+ admissions since 2018. He is quite familiar to me as I have provided care for his last 3-4 admissions. His most recent admission was on 06/11/20 to 06/22/20 and he was admitted to my service. He was at that time psychotic and delusional after reporting Winter use the day before. He was at the [facility] making paranoid and delusional statements to [employer] He reported to the ED that he was suicidal and having auditory hallucinations. He was discharged yesterday having improved from his psychotic symptoms. Patient is in the ED and being evaluated for possible admission. On this occasion he is reporting that he was able to get housing but it was not where he had planned. Yesterday he purchased food and bed sheets to ready himself for his room. States that the room has bed bugs. His son and a female friend came to visit last evening. He reports that he overheard his son tell this young female friend to start a dialogue with him and get him inebriated so that his son could get him arrested. The patient states that he is aware of his family's desire to get him arrested so that he could be off drugs for a number of months. "They want me to dry out" Patient stated that when he found out about his family's plan he became very upset and felt that he needed to be somewhere safe in order to not act out on his violent thoughts. He stated in is interview that he was no longer having violent/homicidal thoughts and that he wants to be discharged. He displays his arms and states "I didn't use. I am clean, I didn't get into anything last night" PAST PSYCHIATRIC HISTORY: Patient has a diagnosis of unspecified depressive disorder, adjustment disorder, history of bipolar disorder, methamphetamine use disorder, cannabis use disorder, tobacco use disorder, polysubstance use, psychotic disorder, substance induced psychotic disorders. Patient has been admitted psychiatry on numerous occasions to this facility and others. He recently was in Rehab at [facility] in February. PAST MEDICAL HISTORY: 1. Intravenous (IV) drug use. 2. Hepatitis C. 3. Tobacco use. 4. Polysubstance Use 5. Appendectomy FAMILY HISTORY: He reports that his father is and of a heart attack. Mother is . She had chronic obstructive pulmonary disease (COPD). Reports that a maternal uncle had schizophrenia. He states that a nephew had completed a suicide in 2019. States that both sides of his family has a history of psychiatric disorders and addictions. PERSONAL AND SOCIAL HISTORY: The patient was born and raised in [place]. Has housing through [facility] Resides in: [place] Marital Status: D Children: Yes Employment: Disabled SUBSTANCE ABUSE HISTORY: Smokin ppd ETOH: occasional Illicit Drugs: Patient reports Nicotine, Amphetamines, Heroin, Winter, Methamphetamines, and Cannabis use. History of treatment at [facility] and [facility]. LEGAL HISTORY: Patient has no history of current legal issues now, but he has a history of attempted burglary and was in long term for that. MENTAL STATUS EXAMINATION: Patient is a 50-year old Single, Disabled, Undomiciled male, who is in the ED for homicidal thoughts to hurt his son. Speech: Is fluid, conversant, normal rate, tone and volume Language skills are intact Thought processes including: linear and goal oriented Thought content: denies depression and anxiety. Denies suicidal/homicidal ideation, planning or intent. Abstract reasoning, and computation: fair Description of associations: denies, none observed Description of abnormal or psychotic thoughts: denies, none observed. Judgment: fair Insight: fair Orientation: alert and oriented to person, place, time and situation Recent and remote memory: intact Attention span and concentration: good Language: expansive Fund of knowledge: average Mood: Euthymic Mood Affect: reactive DIAGNOSIS: 1. Bipolar Disorder PLAN: Patient was discharged to [facility] for housing yesterday, he still has housing today. He is not requesting and does not need an admission to [facility]. In today's interview, patient is alert and oriented to person, place time and situation. Smiles on approach and is pleasant and engaged in the interview. Denies depression and anxiety. Denies suicidal and homicidal ideation, planning or intent. Denies and is not observed with jon, psychotic symptoms of delusions, bizarre thinking, obsessions, paranoia, ruminations illogical thoughts, flight of ideas or having poor insight and judgement. Patient has normal mentation, declines hospitalization and meets criteria for discharge from the emergency department. He reports that he is returning to his apartment. He was given medications Rxs yesterday and is appropriate/normal in his cognition, behaviors, mentation and mood. I do not see any criteria in which patient would need an admission to [facility] and feel comfortable discharging patient to his newly acquired housing. Vital Signs Vital Signs Date Time Temp Pulse Resp B/P (MAP) Pulse Ox O2 Delivery O2 Flow Rate FiO2 06/23/20 13:09 97.6 80 18 131/82 (98) 98 Room Air Laboratory Data 24H Labs Laboratory Tests 2 06/22/20 22:41: Nucleated Red Blood Cells % (auto) 0.0, Anion Gap 6L, Glomerular Filtration Rate > 60.0, Calcium Level 8.5, Total Bilirubin 0.4, Direct Bilirubin 0.1, Aspartate Amino Transf (AST/SGOT) 68H, Alanine Aminotransferase (ALT/SGPT) 121H, Alkaline Phosphatase 81, Total Protein 6.5, Albumin 3.2, Albumin/Globulin Ratio 1.0, Thyroid Stimulating Hormone (TSH) 4.230H, Salicylates Level < 1.7L, Urine Opiates Screen NEGATIVE, Urine Methadone Screen NEGATIVE, Acetaminophen Level < 2.0L, Urine Barbiturates Screen NEGATIVE, Urine Phencyclidine Screen NEGATIVE, Urine Amphetamines Screen NEGATIVE, Urine Benzodiazepines Screen NEGATIVE, Urine Cocaine Metabolite Screen NEGATIVE, Urine Cannabinoids Screen NEGATIVE, Ethyl Al cohol Level < 0.003 06/23/20 05:59: Coronavirus (COVID-19)(PCR) NEGATIVE, Influenza Type A (RT-PCR) NEGATIVE, Influenza Type B (RT-PCR) NEGATIVE, Respiratory Syncytial Virus (PCR) NEGATIVE Home Medications Current Medications Current Medications Medications (Trade) Dose Ordered Sig/Esther Route PRN Reason Start Time Stop Time Status Last Admin Dose Admin Bupropion HCl (Wellbutrin Xl) 150 mg DAILY PO 06/23/20 09:00 06/23/20 12:09 Clonidine HCl (Catapres) 0.1 mg BID PO 06/23/20 09:00 06/23/20 12:09 Pantoprazole Sodium (Protonix) 40 mg BID PO 06/23/20 09:00 06/23/20 12:10 Pantoprazole Sodium (Protonix) 40 mg BID PO 06/23/20 11:27 06/23/20 11:28 DC Pantoprazole Sodium (Protonix) 40 mg DAILY PO 06/23/20 09:00 06/23/20 11:27 DC Sertraline HCl (Zoloft) 100 mg DAILY PO 06/23/20 09:00 06/23/20 12:09 Tamsulosin HCl (Flomax) 0.4 mg DAILY PO 06/23/20 09:00 06/23/20 12:10 Scheduled Bupropion Hcl (Bupropion Xl) 150 Mg Tab.er.24h, 150 MG PO DAILY for Depression Clonidine Hcl (Clonidine HCl) 0.1 Mg Tablet, 0.1 MG PO BID for anxiety Fluticasone Propionate (Flonase Allergy Relief) 9.9 Ml [place].susp, 1 SPRAY NA BID for allergy Nicotine (Nicotine Patch) 14 Mg Patch.td24, 1 PATCH TD DAILY for nicotine withdrawal Pantoprazole Sodium (Pantoprazole Sodium) 40 Mg Tablet.dr, 40 MG PO BID for acid reflux Quetiapine Fumarate (Quetiapine Fumarate) 100 Mg Tablet, 300 MG PO QPM for Insomnia Sertraline Hcl (Zoloft) 100 Mg Tablet, 100 MG PO DAILY for Depression and anxiety Tamsulosin HCl (Flomax) 0.4 Mg Capsule, 0.4 MG PO DAILY for BPH Scheduled PRN Albuterol Sulfate (Albuterol Sulfate Hfa) 8.5 Gm Hfa.aer.ad, 2 PUFFS INH Q4H PRN for SHORTNESS OF BREATH Allergies Coded Allergies: No Known Allergies (Unverified , 08/29/18) MARIANA BHAKTA NP Jun 23, 2020 14:23
== END 2020-06-23 14:27 | disposition home or self-care (01) ==
LOC: M ED 21:49 → CANBEDREQ 06-23 13:56 → M ED 06-23 14:27
DX: F31.9 Bipolar disorder, unspecified (principal); T43.292A Poisoning by other antidepressants, intentional self-harm, initial encounter; R45.851 Suicidal ideations; F17.210 Nicotine dependence, cigarettes, uncomplicated; Z91.5 Personal history of self-harm; Z79.899 Other long term (current) drug therapy

== ENCOUNTER 2020-06-25 03:52 | Inpatient (IN) | payer MEDICAID ==
[~2020-06-25] VITALS: Ht 165.1 cm; Wt 55.5 kg
[2020-06-25] MEDS ORDERED: LORazepam 2 MG TAB PO STA ×2 (04:35→06:11)
[2020-06-25 04:49] LABS: HEMATOCRIT 41.5 % (42.0-52.0); HEMOGLOBIN 13.9 g/dl (13.5-17.5); MEAN CORPUSCULAR HEMOGLOBIN 29.6 pg (27.0-33.0); MEAN CORPUSCULAR HGB CONC 33.5 g/dl (32.0-36.5); MEAN CORPUSCULAR VOLUME 88.5 fl (80.0-96.0); PLATELET COUNT, AUTOMATED 478 10^3/uL (150-450); RED BLOOD COUNT 4.69 10^6/uL (4.30-6.10); WHITE BLOOD COUNT 13.7 10^3/uL (4.0-10.0)
[2020-06-25 05:11] LABS: AMPHETAMINES LEVEL URINE POSITIVE (NEGATIVE); BARBITURATES URINE NEGATIVE (NEGATIVE); BENZODIAZEPINES URINE POSITIVE (NEGATIVE); CANNABINOIDS URINE NEGATIVE (NEGATIVE); COCAINE METABOLITE URINE NEGATIVE (NEGATIVE); METHADONE URINE NEGATIVE (NEGATIVE); OPIATES URINE NEGATIVE (NEGATIVE); PHENCYCLIDINE URINE NEGATIVE (NEGATIVE)
[2020-06-25 05:22] LABS: ACETAMINOPHEN LEVEL < 2.0 UG/ML (10.0-30.0); ALT/SGPT 126 U/L (12-78); BILIRUBIN,DIRECT 0.2 MG/DL (0.0-0.2); BILIRUBIN,TOTAL 0.7 MG/DL (0.2-1.0); BLOOD UREA NITROGEN 19 MG/DL (7-18); CALCIUM LEVEL 10.2 MG/DL (8.5-10.1); CARBON DIOXIDE LEVEL 19 MEQ/L (21-32); CHLORIDE LEVEL 106 MEQ/L (98-107); CREATININE FOR GFR 1.41 MG/DL (0.70-1.30); ETHYL ALCOHOL (ETHANOL) < 0.003 % (0.000-0.010); GLOMERULAR FILTRATION RATE 56.6 (>56); GLUCOSE, FASTING 140 MG/DL (70-100); POTASSIUM SERUM 4.1 MEQ/L (3.5-5.1); SALICYLATE LEVEL < 1.7 MG/DL (5.0-30.0); SODIUM LEVEL 140 MEQ/L (136-145); TOTAL PROTEIN 8.1 GM/DL (6.4-8.2)
--- NOTE | 2020-06-25 16:21 | MHCRPDOC ---
[facility] Consultation Consultation DATE OF CONSULTATION: 06/25/20 CONSULTATION REQUESTED BY: JOSH Moses REASON FOR CONSULTATION: Patient seen in the ED for a disposition. Patient was seen by this provider on 06/23/20 for homicidal thoughts. He was discharged from the ED at that time and has returned after taking a bundle of Winter Patient has a positive drug screen for amphetamines and benzodiazepines. Patient is observed with mildly rapid speech, has some disorganization in his thought processes. He describes that someone is trying to kill him with a 12-gauge shotgun. He states that another person is after him and he is afraid to stay in [place], requesting that he be mandated to 3 months of Rehab or be transferred to [facility]. He is requesting an admission to the hospital, stating that he is suicidal but denies that he currently has a plan. Patient is paranoid and reporting suicidality, he is requesting to be admitted to the Hospital. PER ED REPORT: Pt to ED voluntarily with [employer]. Pt well known from multiple prior psych admissions(most recently admitted to [facility] 06/11/20-06/22/20), has hx of Bipolar d/o and polysubstance abuse, as well as substance induced psychosis. Pt presents to ED highly agitated and paranoid, claiming someone was trying to shoot him with a shotgun [employer], also highly paranoid in BHU, yelling loudly/rapid speech and frequently out of room. PT admits to using a "bundle" of Winter earlier and appears under the influence, Ativan ordered by attending Physician. Pt presented to ED voluntarily with [employer] after reporting to police that someone was after him with a 12 gauge shotgun. Pt has long Hx of polysubstance use disorder and secondary to substance use paranoid ideations. Pt admits that last night he was hanging out with his cousin and his son and he ingested 1/4 gram of Winter and a 1/4 gram of bath salts, but the bath salts said "methadone" on the container. Pt stated then his cousin Carlos and his son were chasing him down the street with a gun. Pt admitted that last night he was going to jump off a bridge with suicidal intent so they didn't get the chance to shoot him in the back. Pt stated he is still feeling suicidal, but discussed no concrete plan. Pt denied HI and AH/VH. During interview pt. seemed disorganized and did ask TW if she saw the man on the iPad screen, but there was no actual man on screen. Pt receives O/P services at [facility]. Pt is calm and cooperative at this time. RELEVANT HISTORY: This patient has a long history of psychiatric admissions to [facility] of greater 25+ admissions since 2018. He is quite familiar to me as I have provided care for his last 3-4 admissions. His most recent admission was on 06/11/20 to 06/22/20 and he was admitted to my service. He was at that time psychotic and delusional after reporting Winter use the day before. He was at the [facility] making paranoid and delusional statements to [facility]. He reported to the ED that he was suicidal and having auditory hallucinations. He was discharged yesterday 06/22/20 having improved from his psychotic symptoms. PAST PSYCHIATRIC HISTORY: Patient has a diagnosis of unspecified depressive disorder, adjustment disorder, history of bipolar disorder, methamphetamine use disorder, cannabis use disorder, tobacco use disorder, polysubstance use, psychotic disorder, substance induced psychotic disorders. Patient has been admitted psychiatry on numerous occasions to this facility and others. He recently was in Rehab at [facility] in February. PAST MEDICAL HISTORY: 1. Intravenous (IV) drug use. 2. Hepatitis C. 3. Tobacco use. 4. Polysubstance Use 5. Appendectomy FAMILY HISTORY: He reports that his father is and of a heart attack. Mother is . She had chronic obstructive pulmonary disease (COPD). Reports that a maternal uncle had schizophrenia. He states that a nephew had completed a suicide in 2019. States that both sides of his family has a history of psychiatric disorders and addictions. PERSONAL AND SOCIAL HISTORY: The patient was born and raised in [place]. Has housing through [facility] Resides in: [place] Marital Status: D Children: Yes Employment: Disabled SUBSTANCE ABUSE HISTORY: Smokin ppd ETOH: occasional Illicit Drugs: Patient reports Nicotine, Amphetamines, Heroin, Winter, Methamphetamines, and Cannabis use. History of treatment at [facility] and [facility]. LEGAL HISTORY: Patient has no history of current legal issues now, but he has a history of attempted burglary and was in [facility] for that. MENTAL STATUS EXAMINATION: Patient is a 50-year old Single, Disabled, Undomiciled male, who is in the ED for homicidal thoughts to hurt his son. Speech: fast rate, normal tone and volume Language skills are intact Thought processes including: loose Thought content: denies depression and anxiety. Reports suicidal ideation with no planning. Denies homicidal ideation, planning or intent. Paranoid Abstract reasoning, and computation: poor Description of associations: believes that people are going to kill him with a gun Description of abnormal or psychotic thoughts: delusional, paranoid Judgment: poor Insight: poor Orientation: alert and oriented to person, place, and situation Recent and remote memory: fair Attention span and concentration: poor Language: expansive Fund of knowledge: average Mood: Euthymic Mood Affect: reactive DIAGNOSIS: 1. Unspecified Schizophrenia and Other Psychotic Disorders 2. Bipolar Disorder PLAN: Admit to [facility] on a 9.39 for suicidal ideations and psychotic symptoms; paranoia and delusional Vital Signs Vital Signs Date Time Temp Pulse Resp B/P (MAP) Pulse Ox O2 Delivery O2 Flow Rate FiO2 06/25/20 04:30 98.2 117 22 137/89 (105) 98 Room Air Laboratory Data 24H Labs Laboratory Tests 2 06/25/20 04:31: Nucleated Red Blood Cells % (auto) 0.0, Anion Gap 15, Glomerular Filtration Rate 56.6, Calcium Level 10.2#H, Total Bilirubin 0.7#, Direct Bilirubin 0.2, Aspartate Amino Transf (AST/SGOT) 83H, Alanine Aminotransferase (ALT/SGPT) 126H, Alkaline Phosphatase 99, Total Protein 8.1#, Albumin 4.0#, Albumin/Globulin Ratio 1.0, Thyroid Stimulating Hormone (TSH) 9.430H, Salicylates Level < 1.7L, Urine Opiates Screen NEGATIVE, Urine Methadone Screen NEGATIVE, Acetaminophen Level < 2.0L, Urine Barbiturates Screen NEGATIVE, Urine Phencyclidine Screen NEGATIVE, Urine Amphetamines Screen POSITIVEH, Urine Benzodiazepines Screen POSITIVEH, Urine Cocaine Metabolite Screen NEGATIVE, Urine Cannabinoids Screen NEGATIVE, Ethyl Alcohol Level < 0.003 Home Medications Current Medications Current Medications Medications (Trade) Dose Ordered Sig/Esther Route PRN Reason Start Time Stop Time Status Last Admin Dose Admin Home Med (Med Rec Complete!) ASDIRECTED XX 06/25/20 15:55 06/25/20 15:55 DC Lorazepam (Ativan) 2 mg STAT STAT PO 06/25/20 04:35 06/25/20 04:36 DC 06/25/20 05:02 Lorazepam (Ativan) 2 mg STAT STAT PO 06/25/20 06:11 06/25/20 06:12 DC 06/25/20 06:15 Scheduled Bupropion Hcl (Bupropion Xl) 150 Mg Tab.er.24h, 150 MG PO DAILY for Depression Clonidine Hcl (Clonidine HCl) 0.1 Mg Tablet, 0.1 MG PO BID for anxiety Quetiapine Fumarate (Quetiapine Fumarate) 100 Mg Tablet, 300 MG PO QPM for Insomnia Sertraline Hcl (Zoloft) 100 Mg Tablet, 100 MG PO DAILY for Depression and anxiety Tamsulosin HCl (Flomax) 0.4 Mg Capsule, 0.4 MG PO DAILY for BPH Scheduled PRN Albuterol Sulfate (Albuterol Sulfate Hfa) 8.5 Gm Hfa.aer.ad, 2 PUFFS INH Q4H PRN for SHORTNESS OF BREATH Allergies Coded Allergies: No Known Allergies (Unverified , 08/29/18) MARIANA BHAKTA [employer] CAMP ATTENDANT Jun 25, 2020 16:21
[2020-06-25] MEDS ORDERED: traZODone 50 MG TAB PO PRN (18:20)
[2020-06-25] MEDS ORDERED: MAALOX 30 ML SUSP *UDC PO PRN (18:20)
[2020-06-25] MEDS ORDERED: MOM 30ML SUSPENSION UDC PO PRN (18:20)
[2020-06-25] MEDS ORDERED: ALBUTEROL 90 MCG/ACT 8GM HFA INHALER INH PRN (18:20)
[2020-06-25 19:03] LABS: RSV AMPLIFICATION NEGATIVE (NEGATIVE)
[2020-06-25] MEDS: cloNIDine 0.1MG TABLET PO SCH (21:38)
[2020-06-25] MEDS: QUEtiapine FUMARATE 100 MG TAB PO SCH (21:39)
[2020-06-25 23:04] VITALS: BP 132/78
[2020-06-26] MEDS: cloNIDine 0.1MG TABLET PO SCH ×2 (09:00→21:00)
[2020-06-26] MEDS: NICOTINE 21MG/24HR 1 EA TRANSDERMAL TD SCH (09:00)
[2020-06-26] MEDS ORDERED: LORazepam 2 MG/ML VIAL IM ONE (09:05)
[2020-06-26] MEDS ORDERED: HALOPERIDOL 5MG/ML VIAL (J1630 PER 1) IM ONE (09:05)
[2020-06-26] MEDS ORDERED: diphenhydrAMINE 50MG/ML VIAL (J1200) IM ONE (09:05)
[2020-06-26] MEDS: TAMSULOSIN 0.4 MG CAP PO SCH (09:12)
[2020-06-26] MEDS: SERTRALINE 100 MG TAB PO SCH (09:13)
[2020-06-26] MEDS: buPROPion **XL** TABLET 150MG (WELLBUTRIN XL) PO SCH (09:14)
--- NOTE | 2020-06-26 09:26 | HPEPDOC ---
[facility] Medical History & Physical Date of Admission Jun 25, 2020 Date of Service: Jun 26, 2020 Attending Physician: Margarita Baker MD History and Physical HISTORY OF PRESENT ILLNESS: Mr. Leone is a 50 year old male with Bipolar disorder, depression, anxiety, hx of suicidal ideations, IVDA (methamphetamines, benzo), multiple [facility] hospitalizations (last 06/12/20-06/22/20), Hepatitis C PAST MEDICAL HISTORY: 1. IV drug use 2. Hx of Hep C, has recently noted viremia, however still using IV illicit drugs 3. Tobacco use 4. Depression with suicidal ideations 5. Anxiety 6. Bipolar disorder PAST SURGICAL HISTORY: 1. Appendectomy SOCIAL HISTORY: Tobacco use: Current smoker, 37 years, 1PPD ETOH: Denies alcohol Illicit drug use: Uses IV FAMILY HISTORY: Denies knowledge of parent's medical history ALLERGIES: Please see below. CURRENT MEDICATIONS: Please see below. PHYSICAL EXAMINATION: VITAL SIGNS: Please see below GENERAL: Comfortable, in no apparent distress. HEENT: Head normocephalic/atraumatic, EOMI, sclera clear. NECK: Supple, no JVD. RESPIRATORY: Lungs clear to auscultation bilaterally, no rales, wheeze or rhonchi. CARDIOVASCULAR: Tachycardic but regular ABDOMEN: Abdominal tenderness. Normal bowel sounds. MUSCLE SKELETAL: Muscle strength 5/5 in all extremities. NEUROLOGICAL: CN 312 grossly intact, no focal deficits noted. PSYCHOLOGICAL: Normal mood and affect LABORATORY DATA: See below. MICROBIOLOGY: UA ordered. ASSESSMENT:50 y/o M admitted to [facility] for unspecified psychotic disorder. PLAN: Unspecified psychotic disorder Plan per psychiatry team Leukocytosis -WBC 13.7, afebrile overnight, improving tachycardia, no noted murmur or s/s of endocarditis to warrant echocardiogram -R/o infection with hx of IVDU vs. reactive to drug use/ dehydration -Known history of hep C, AST/ALT appear to be close to baseline. Acute kidney injury likely prerenal, dehydration as cause -Cr 1.4, BL Cr wnl -Denies ibuprofen use as o/p -Encourage PO intake Q2hrs while awake, avoid nephrotoxic medications Polysubstance abuse -Monitor for s/s of withdrawl Tobacco use -Nicotine patch DISPOSITION: Thank you kindly for this consult. Will sign off today but follow AM labs on 4/24/21. If needed to see again, please do not hesitate to call at anytime. Vital Signs Vital Signs Date Time Temp Pulse Resp B/P (MAP) Pulse Ox O2 Delivery O2 Flow Rate FiO2 06/25/20 23:04 98.2 99 16 132/78 (96) 98 Room Air Laboratory Data Labs 24H Laboratory Tests 2 06/25/20 18:12: Coronavirus (COVID-19)(PCR) NEGATIVE, Influenza Type A (RT-PCR) NEGATIVE, Influenza Type B (RT-PCR) NEGATIVE, Respiratory Syncytial Virus (PCR) NEGATIVE Home Medications Scheduled Bupropion Hcl (Bupropion Xl) 150 Mg Tab.er.24h, 150 MG PO DAILY for Depression Clonidine Hcl (Clonidine HCl) 0.1 Mg Tablet, 0.1 MG PO BID for anxiety Quetiapine Fumarate (Quetiapine Fumarate) 100 Mg Tablet, 300 MG PO QPM for Insomnia Sertraline Hcl (Zoloft) 100 Mg Tablet, 100 MG PO DAILY for Depression and anxiety Tamsulosin HCl (Flomax) 0.4 Mg Capsule, 0.4 MG PO DAILY for BPH Scheduled PRN Albuterol Sulfate (Albuterol Sulfate Hfa) 8.5 Gm Hfa.aer.ad, 2 PUFFS INH Q4H PRN for SHORTNESS OF BREATH Allergies Coded Allergies: No Known Allergies (Unverified , 08/29/18) Margarita Baker MD Jun 26, 2020 09:26
--- NOTE | 2020-06-26 10:38 | MHHPEPDOC ---
General Date Of Admission: Jun 25, 2020 Legal Status: 9.39 Chief Complaint "The police are accusing me of something that I didn't do and they are trying to kill me." History of Present Illness HISTORY OF THE PRESENT ILLNESS: Patient was seen by this provider in the ED on 06/23/20 for homicidal thoughts but he was discharged at that time. He returned to the ED on 06/25/20 and he was psychotic and having suicidal thoughts. He returned after taking a bundle of Winter Patient has a positive drug screen for amphetamines and benzodiazepines. Patient is observed with mildly rapid speech, has some disorganization in his thought processes. He describes that someone is trying to kill him with a 12-gauge shotgun. He states that another person is after him and he is afraid to stay in [place], requesting that he be mandated to 3 months of Rehab or be transferred to [facility]. He is requesting an admission to the hospital, stating that he is suicidal but denies that he currently has a plan. Patient is paranoid and reporting suicidality, he is requesting to be admitted to the Hospital. PER ED REPORT: Pt to ED voluntarily with [employer]. Pt well known from multiple prior psych admissions(most recently admitted to [facility] 06/11/20-06/22/20), has hx of Bipolar d/o and polysubstance abuse, as well as substance induced psychosis. Pt presents to ED highly agitated and paranoid, claiming someone was trying to shoot him with a shotgun CAR BUILDER, also highly paranoid in BHU, yelling loudly/rapid speech and frequently out of room. PT admits to using a "bundle" of Winter earlier and appears under the influence, Ativan ordered by attending Physician. Pt presented to ED voluntarily with [facility] after reporting to police that someone was after him with a 12 gauge shotgun. Pt has long Hx of polysubstance use disorder and secondary to substance use paranoid ideations. Pt admits that last night he was hanging out with his cousin and his son and he ingested 1/4 gram of Winter and a 1/4 gram of bath salts, but the bath salts said "methadone" on the container. Pt stated then his cousin Gonzalez and his son were chasing him down the street with a gun. Pt admitted that last night he was going to jump off a bridge with suicidal intent so they didn't get the chance to shoot him in the back. Pt stated he is still feeling suicidal, but discussed no concrete plan. Pt denied HI and AH/VH. During interview pt. seemed disorganized and did ask TW if she saw the man on the iPad screen, but there was no actual man on screen. Pt receives O/P services at [facility]. Pt is calm and cooperative at this time. RELEVANT HISTORY: This patient has a long history of psychiatric admissions to [facility] of greater 25+ admissions since 2018. He is quite familiar to me as I have provided care for his last 3-4 admissions. His most recent admission was on 06/11/20 - 06/22/20 and he was admitted to my service. He comes in to the ED with similar complaints of being psychotic, delusional, paranoid with suicidal thoughts. He was discharged from [facility] on 06/22/20. Psychiatric Review of Systems Depression (2 or more weeks): depressed mood, insomnia/hypersomnia, suicidal thoughts Britney (4 or more days of): irritable/elevated mood, expansive mood, decreased need for sleep, distractibility Psychosis: delusions, paranoia, disorganization PTSD: denies Anxiety: denies Past Psychiatric History Previous Psychiatric Diagnosis: unspecified depressive disorder, adjustment disorder, history of bipolar disorder, methamphetamine use disorder, cannabis use disorder, tobacco use disorder, polysubstance use, psychotic disorder, substance induced psychotic disorders. Previous Psychiatric Admissions: numerous occasions to this facility and others. He recently was in Rehab at [facility] in February. Most recently discharged on 06/22/20 Suicide Attempts: Psychiatric Follow-up: [facility] Psychiatric medications: See reconciliation Past Medical History Medical Problems 1. Intravenous (IV) drug use. 2. Hepatitis C. 3. Tobacco use. 4. Polysubstance Use 5. Appendectomy Head Injury: Yes Seizures: No Hospitalizations: Yes Surgeries: Yes Family Medical/Psychiatric HX Medical Problems He reports that his father is and of a heart attack. Mother is . She had chronic obstructive pulmonary disease (COPD). Reports that a maternal uncle had schizophrenia. He states that a nephew had completed a suicide in 2019. States that both sides of his family has a history of psychiatric disorders and addictions Psychiatric Disorders: Yes Addiction: Yes Suicide Attemps/Completions: Yes Addiction History nicotine, cocaine, methamphetamines, other (Patient reports Nicotine, Amphetamines, Heroin, Winter, Methamphetamines, and Cannabis use. History of treatment at [facility] and [facility]) Social History Childhood: The patient was born and raised in [place]. Left on 06/22/20 and had a room at the [facility] that was provided by [facility] Abuse/Trauma: Hx of Trauma Current Living Situation: Homeless Education: Did not graduate High School Employment: No employment, receives SSI Social Support: Poor Supports Legal: Patient has no history of current legal issues now, but he has a history of attempted burglary and was in group home for that. Marital: , has grown children Mental Status Examination General Appearance: unkempt, disheveled, ds/not appear stated age (looks older than stated age), hospital scubs/clothing Build: thin, other (short statured, bald) Demeanor: hostile, guarded Eye Contact: avoidant Activity: agitated, hostile Behavior: uncooperative Speech: other (fast) Mood: angry, irritable Affect: hostile Thought Process: blocked Thought Content (Delusions): paranoia, delusions Thought Content (Other): guarded, appears paranoid Thought Content (Aggressive): other (aggressive in speech not physically aggressive, he is irritable, agitated ) Perception (Hallucinations): none reported Perception (Other): none reported Cognition (Impairment of): attention/concentration Cognition(Intelligence Est.): average Oriented: Awake, Alert Insight: poor Judgment: Poor Psychosis: Psychotic Perceptions Diagnoses 1. Unspecified schizophrenia and other psychotic disorders 2. History of bipolar disorder. 3. Methamphetamine use disorder. 4. Cannabis use disorder. 5. History of Polysubstance Use Disorder 6. Poor adherence to treatment 7. Rule out Methamphetamine Induced Psychosis A-FIB/CHADSVASC A-FIB History Current/History of A-Fib/PAF?: No Current PO Anticoag Therapy: No Assessment Patient is a 50-year-old , unemployed, and domiciled male. Numerous hospitalizations to this hospital for similar complaints. He has been in the ED several times this week. He reports recent use of Winter. On this occasion he is acting very paranoid and delusional, reporting that people were trying to kill him. He was recently discharged from this facility on 06/22/2020. At this time patient is disengaged but continues to be paranoid and making suicidal statement. It often takes patient several days to be in agreement with treatment modalities and then wants to leave. His affect is flat and blunted. Again, uncooperative in the interview. Eye contact is avoidant. Speech is impoverished. He is delusional or bizarre at this time. Cognition is not impaired. His Insight and judgment are poor. Severe psychotic symptoms noted. Patient will be stabilized on his home medications. Discharged to department of sexual assault social worker ([facility]) when he is stable. The treatment plan will also focus on depression, risk for suicide, risk for substance use, altered thoughts, and reorientation. Initial Treatment Plan 1. Patient was admitted on a [9.39] status. 2. Complete history was obtained. 3. With patients permission, family will be contacted and database will be expanded. 4. Patients medication regimen will be reviewed and changed accordingly. 5. Patient will be provided with protected environment. 6. Patient will be treated with individual, group, and milieu therapies. 7. Patient will receive supportive psych-education. 8. Discharge planning will commence immediately. 9. Outpatient follow-up treatment will be strongly recommended. 10. The initial treatment plan will focus initially on: * Depression. * Risk for suicide. * Altered thoughts * Substance Use ESTIMATED LENGTH OF STAY: 5-7 DAYS. TIME SPENT COUNSELING AND COORDINATING INITIAL CARE: 60 minutes. Tobacco Cessation Screen Tobacco Cessation Tx Ordered?: Yes Ordered/Pending Vital Signs Vital Signs Date Time Temp Pulse Resp B/P (MAP) Pulse Ox O2 Delivery O2 Flow Rate FiO2 06/25/20 23:04 98.2 99 16 132/78 (96) 98 Room Air Laboratory Data 24H Labs Laboratory Tests 2 06/25/20 18:12: Coronavirus (COVID-19)(PCR) NEGATIVE, Influenza Type A (RT-PCR) NEGATIVE, Influenza Type B (RT-PCR) NEGATIVE, Respiratory Syncytial Virus (PCR) NEGATIVE Medications Scheduled Bupropion Hcl (Bupropion Xl) 150 Mg Tab.er.24h, 150 MG PO DAILY for Depression Clonidine Hcl (Clonidine HCl) 0.1 Mg Tablet, 0.1 MG PO BID for anxiety Quetiapine Fumarate (Quetiapine Fumarate) 100 Mg Tablet, 300 MG PO QPM for Insomnia Sertraline Hcl (Zoloft) 100 Mg Tablet, 100 MG PO DAILY for Depression and anxiety Tamsulosin HCl (Flomax) 0.4 Mg Capsule, 0.4 MG PO DAILY for BPH Scheduled PRN Albuterol Sulfate (Albuterol Sulfate Hfa) 8.5 Gm Hfa.aer.ad, 2 PUFFS INH Q4H PRN for SHORTNESS OF BREATH Allergies Coded Allergies: No Known Allergies (Unverified , 08/29/18) MARIANA BHAKTA NP Jun 26, 2020 10:38
[2020-06-26] MEDS: QUEtiapine FUMARATE 100 MG TAB PO SCH (21:04)
[2020-06-26] MEDS: ACETAMINOPHEN TAB 650MG DOSE (2X325MG) PO PRN (21:05)
[2020-06-27 06:41] VITALS: BP 99/65
[2020-06-27] MEDS: buPROPion **XL** TABLET 150MG (WELLBUTRIN XL) PO SCH (10:34)
[2020-06-27] MEDS: TAMSULOSIN 0.4 MG CAP PO SCH (10:34)
[2020-06-27] MEDS: cloNIDine 0.1MG TABLET PO SCH ×2 (10:34→20:33)
[2020-06-27] MEDS: SERTRALINE 100 MG TAB PO SCH (10:34)
[2020-06-27] MEDS: NICOTINE 21MG/24HR 1 EA TRANSDERMAL TD SCH (10:35)
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
[2020-06-27 11:56] LABS: HEMATOCRIT 37.3 % (42.0-52.0); HEMOGLOBIN 12.5 g/dl (13.5-17.5); MEAN CORPUSCULAR HEMOGLOBIN 29.6 pg (27.0-33.0); MEAN CORPUSCULAR HGB CONC 33.5 g/dl (32.0-36.5); MEAN CORPUSCULAR VOLUME 88.2 fl (80.0-96.0); PLATELET COUNT, AUTOMATED 338 10^3/uL (150-450); RED BLOOD COUNT 4.23 10^6/uL (4.30-6.10); WHITE BLOOD COUNT 5.6 10^3/uL (4.0-10.0)
[2020-06-27 12:38] LABS: ALBUMIN 2.9 GM/DL (3.2-5.2); ALT/SGPT 156 U/L (12-78); BILIRUBIN,TOTAL 0.2 MG/DL (0.2-1.0); BLOOD UREA NITROGEN 11 MG/DL (7-18); CALCIUM LEVEL 8.7 MG/DL (8.5-10.1); CARBON DIOXIDE LEVEL 30 MEQ/L (21-32); CHLORIDE LEVEL 107 MEQ/L (98-107); CREATININE FOR GFR 0.71 MG/DL (0.70-1.30); GLOMERULAR FILTRATION RATE > 60.0 (>56); GLUCOSE, FASTING 101 MG/DL (70-100); SODIUM LEVEL 141 MEQ/L (136-145); TOTAL PROTEIN 6.1 GM/DL (6.4-8.2)
--- NOTE | 2020-06-27 16:40 | MHIPN ---
[facility] PROGRESS NOTE DATE: 06/27/2020 SUBJECTIVE: Today the patient says "I am sore." He says he did not sleep good. He is vague in his responses to my question, but then admits he is feeling depressed and having feelings of hopelessness and helplessness. He says that he is still having suicidal thoughts. MENTAL STATUS EXAMINATION: This patient is alert, oriented times three. Eye contact is fair. No formal thought disorder noted. He says his mood is okay, but then he says he is depressed and his affect is appropriate to mood. He says he is having suicidal thoughts now. Denies homicidal thoughts. He appears to have some paranoid thoughts and he does tend to be guarded. He is denying homicidal thoughts. Concentration is fair. Memory is grossly intact. Insight and judgment is poor. DIAGNOSES: 1. Unspecified schizophrenia and other psychotic disorders. 2. History of bipolar disorder. 3. Methamphetamine use disorder. 4. Cannabis use disorder. TREATMENT PLAN: At this point, we will continue to monitor the patient for paranoid thoughts and continued suicidal thoughts and titrate his medications as indicated.
[2020-06-27 18:00] VITALS: BP 131/80
[2020-06-27] MEDS: QUEtiapine FUMARATE 100 MG TAB PO SCH (20:33)
[2020-06-28 06:51] VITALS: BP 140/77
[2020-06-28] MEDS: NICOTINE 21MG/24HR 1 EA TRANSDERMAL TD SCH (08:24)
[2020-06-28] MEDS: TAMSULOSIN 0.4 MG CAP PO SCH (09:01)
[2020-06-28] MEDS: SERTRALINE 100 MG TAB PO SCH (09:01)
[2020-06-28] MEDS: buPROPion **XL** TABLET 150MG (WELLBUTRIN XL) PO SCH (09:01)
[2020-06-28] MEDS: cloNIDine 0.1MG TABLET PO SCH ×2 (09:01→21:00)
--- NOTE | 2020-06-28 17:17 | MHIPN ---
[facility] PROGRESS NOTE DATE: 06/28/2020 SUBJECTIVE: The patient today states "I'm not too good." When I asked him why, he said "Because I need to be put away somewhere." He tells me that he continues to have suicidal ideations. MENTAL STATUS EXAMINATION: He is alert and oriented times three. Eye contact is poor. Psychomotor activity is decreased. There is no formal thought disorder noted. Mood is depressed and irritable. Affect is appropriate to mood. He appears to be guarded with some paranoia. He has suicidal thoughts. Denies homicidal thoughts. Concentration is fair. Memory intact. Insight and judgment poor. DIAGNOSES: 1. Unspecified schizophrenia and other psychotic disorders. 2. History of bipolar disorder. 3. Methamphetamine use disorder. 4. Cannabis use disorder. TREATMENT PLAN: We will continue to monitor the patient for psychotic symptoms and suicidal thoughts and titrate his medications as indicated.
[2020-06-28 18:17] VITALS: BP 130/70
[2020-06-28] MEDS: QUEtiapine FUMARATE 100 MG TAB PO SCH (21:00)
[2020-06-29 06:27] VITALS: BP 115/72
[2020-06-29] MEDS: SERTRALINE 100 MG TAB PO SCH (08:57)
[2020-06-29] MEDS: TAMSULOSIN 0.4 MG CAP PO SCH (08:57)
[2020-06-29] MEDS: buPROPion **XL** TABLET 150MG (WELLBUTRIN XL) PO SCH (08:57)
[2020-06-29] MEDS: cloNIDine 0.1MG TABLET PO SCH ×2 (08:58→20:11)
[2020-06-29] MEDS: OLANZapine ORAL DISINTEGRATING TAB 5MG PO PRN (08:59)
[2020-06-29] MEDS: NICOTINE 21MG/24HR 1 EA TRANSDERMAL TD SCH (09:00)
[2020-06-29] MEDS: ACETAMINOPHEN TAB 650MG DOSE (2X325MG) PO PRN (09:04)
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
[2020-06-29 18:42] VITALS: BP 103/64
[2020-06-29] MEDS: QUEtiapine FUMARATE 100 MG TAB PO SCH (20:07)
[2020-06-30 06:45] VITALS: BP 125/67
[2020-06-30] MEDS: cloNIDine 0.1MG TABLET PO SCH ×2 (09:00→20:37)
[2020-06-30] MEDS: NICOTINE 21MG/24HR 1 EA TRANSDERMAL TD SCH (09:00)
[2020-06-30] MEDS: buPROPion **XL** TABLET 150MG (WELLBUTRIN XL) PO SCH (09:05)
[2020-06-30] MEDS: TAMSULOSIN 0.4 MG CAP PO SCH (09:05)
[2020-06-30] MEDS: SERTRALINE 100 MG TAB PO SCH (09:05)
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
[2020-06-30] MEDS: OLANZapine ORAL DISINTEGRATING TAB 5MG PO PRN (15:39)
[2020-06-30 16:08] VITALS: BP 112/69
[2020-06-30] MEDS: QUEtiapine FUMARATE 100 MG TAB PO SCH (20:36)
[2020-07-01 06:20] VITALS: BP 107/71
[2020-07-01] MEDS: NICOTINE 21MG/24HR 1 EA TRANSDERMAL TD SCH (09:00)
[2020-07-01] MEDS: TAMSULOSIN 0.4 MG CAP PO SCH (09:01)
[2020-07-01] MEDS: buPROPion **XL** TABLET 150MG (WELLBUTRIN XL) PO SCH (09:01)
[2020-07-01] MEDS: SERTRALINE 100 MG TAB PO SCH (09:01)
[2020-07-01] MEDS: cloNIDine 0.1MG TABLET PO SCH ×2 (09:01→19:58)
--- NOTE | 2020-07-01 09:38 | MHIPNPDOC ---
[facility] Progress Note Progress Note DATE OF SERVICE: 07/01/20 HISTORY: Patient is a 50 -year old , Unemployed, Domiciled, male, who was seen by this provider in the ED on 06/23/20 for homicidal thoughts but he was discharged at that time reporting that he was no longer having violent and angry thoughts towards his family. He returned to the ED on 06/25/20 and he was psychotic and having suicidal thoughts. He returned after taking a bundle of Winter Patient has a positive drug screen for amphetamines and benzodiazepines. Patient is observed with mildly rapid speech, has some disorganization in his thought processes. He describes that someone is trying to kill him with a 12-gauge shotgun. He states that another person is after him and he is afraid to stay in [place], requesting that he be mandated to 3 months of Rehab or be transferred to [facility]. He is requesting an admission to the hospital, stating that he is suicidal but denies that he currently has a plan. Patient is paranoid and reporting suicidality, he is requesting to be admitted to the Hospital. PER ED REPORT: Pt to ED voluntarily with [employer]. Pt well known from multiple prior psych admissions(most recently admitted to [facility] 06/11/20-06/22/20), has hx of Bipolar d/o and polysubstance abuse, as well as substance induced psychosis. 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 PT admits to using a "bundle" of Winter earlier and appears under the influence, Ativan ordered by attending Physician. Pt presented to ED voluntarily with [employer] after reporting to police that someone was after him with a 12 gauge shotgun. Pt has long Hx of polysubstance use disorder and secondary to substance use paranoid ideations. Pt admits that last night he was hanging out with his cousin and his son and he ingested 1/4 gram of Winter and a 1/4 gram of bath salts, but the bath salts said "methadone" on the container. Pt stated then his cousin Gonzalez and his son were chasing him down the street with a gun. Pt admitted that last night he was going to jump off a bridge with suicidal intent so they didn't get the chance to shoot him in the back. Pt stated he is still feeling suicidal, but discussed no concrete plan. Pt denied HI and AH/VH. During interview pt. seemed disorganized and did ask TW if she saw the man on the iPad screen, but there was no actual man on screen. Pt receives O/P services at [facility]. Pt is calm and cooperative at this time. VITAL SIGNS: See below. CURRENT MEDICATIONS: See below. MENTAL STATUS EXAMINATION: Patient is a 50 -year old , Unemployed, Domiciled, male, who was admitted to [facility] because he was psychotic and having suicidal thoughts. Speech: Is fluid, conversant, normal rate, tone and volume Language skills are intact Thought processes including: linear and goal oriented Thought content: denies depression and anxiety. Denies SI and HI, denies planning or intent Abstract reasoning, and computation: fair Description of associations: denies, none observed Description of abnormal or psychotic thoughts: denies, none observed. Judgment: fair Insight: fair Orientation: alert and oriented to person, place, time and situation Recent and remote memory: intact Attention span and concentration: good Language: expansive Fund of knowledge: average Mood: euthymic, apologetic Affect: Congruent with mood DIAGNOSES: 1. Unspecified schizophrenia and other psychotic disorders 2. History of bipolar disorder. 3. Methamphetamine use disorder. 4. Cannabis use disorder. 5. History of Polysubstance Use Disorder 6. Poor adherence to treatment 7. Rule out Methamphetamine Induced Psychosis ASSESSMENT: Patient seen today, discussed his treatment options. Patient is agreeable to stay hospitalized until he can be placed in a Rehab. He is also agreeable to [facility] after he has completed Rehab treatment. He denies homicidal ideations today. Also denies strong suicidal thoughts, although he states that this is fleeting for him. He reports that he continues to have mild to moderate depression at times during the day, has moderate to high anxiety. He did not agree to mood stabilizer today. Will discuss this at another time. MANAGEMENT PLAN: Continue all medications as ordered. Will attempt to place patient in rehab TIME SPENT: 25 minutes. Vital Signs Vital Signs Date Time Temp Pulse Resp B/P (MAP) Pulse Ox O2 Delivery O2 Flow Rate FiO2 07/01/20 09:01 115/71 07/01/20 06:20 98.8 76 20 99 Room Air Current Medications Current Medications Medications (Trade) Dose Ordered Sig/Esther Route PRN Reason Start Time Stop Time Status Last Admin Dose Admin Acetaminophen (Tylenol Tab) 650 mg Q6HP PRN PO HEADACHE or DISCOMFORT 06/25/20 18:20 06/29/20 09:04 Al Hydrox/Mg Hydrox/Simethicone (Mylanta) 30 ml Q4HP PRN PO HEARTBURN/INDIGESTION 06/25/20 18:20 Albuterol Sulfate (Proventil, Ventolin Hfa) 2 puff Q4H PRN INH SHORTNESS OF BREATH 06/25/20 18:20 Bupropion HCl (Wellbutrin Xl) 150 mg DAILY PO 06/26/20 09:00 07/01/20 09:01 Clonidine HCl (Catapres) 0.1 mg BID PO 06/25/20 21:00 07/01/20 09:01 Home Med (Med Rec Complete!) ASDIRECTED XX 06/25/20 15:55 06/25/20 15:55 DC Lorazepam (Ativan) 2 mg STAT STAT PO 06/25/20 04:35 06/25/20 04:36 DC 06/25/20 05:02 Lorazepam (Ativan) 2 mg STAT STAT PO 06/25/20 06:11 06/25/20 06:12 DC 06/25/20 06:15 Magnesium Hydroxide (Milk Of Magnesia) 30 ml DAILYPRN PRN PO CONSTIPATION 06/25/20 18:20 Nicotine (Nicoderm Cq 21mg) 1 patch DAILY TD 06/26/20 09:00 Olanzapine (ZyPREXA ZYDIS) 5 mg Q4HP PRN PO AGITATION 06/25/20 18:20 06/30/20 15:39 Quetiapine Fumarate (SEROquel) 300 mg QPM PO 06/25/20 21:00 06/30/20 20:36 Sertraline HCl (Zoloft) 100 mg DAILY PO 06/26/20 09:00 07/01/20 09:01 Tamsulosin HCl (Flomax) 0.4 mg DAILY PO 06/26/20 09:00 07/01/20 09:01 Trazodone HCl (Desyrel) 50 mg QHSP PRN PO INSOMNIA 06/25/20 18:20 Allergies Coded Allergies: No Known Allergies (Unverified , 08/29/18) MARIANA BHAKTA NP Jul 01, 2020 09:38
[2020-07-01 16:12] VITALS: BP 110/79
[2020-07-01] MEDS: ACETAMINOPHEN TAB 650MG DOSE (2X325MG) PO PRN (17:57)
[2020-07-01] MEDS: QUEtiapine FUMARATE 100 MG TAB PO SCH (19:58)
[2020-07-02 06:49] VITALS: BP 124/69
[2020-07-02] MEDS: TAMSULOSIN 0.4 MG CAP PO SCH (08:02)
[2020-07-02] MEDS: SERTRALINE 100 MG TAB PO SCH (08:02)
[2020-07-02] MEDS: buPROPion **XL** TABLET 150MG (WELLBUTRIN XL) PO SCH (08:02)
[2020-07-02] MEDS: cloNIDine 0.1MG TABLET PO SCH ×2 (08:02→20:03)
[2020-07-02] MEDS: NICOTINE 21MG/24HR 1 EA TRANSDERMAL TD SCH (08:03)
[2020-07-02] MEDS: OLANZapine ORAL DISINTEGRATING TAB 5MG PO PRN (09:44)
--- NOTE | 2020-07-02 09:49 | MHIPNPDOC ---
[facility] Progress Note Progress Note DATE OF SERVICE: 07/02/20 HISTORY: Patient is a 50 -year old , Unemployed, Domiciled, male, who was seen by this provider in the ED on 06/23/20 for homicidal thoughts but he was discharged at that time reporting that he was no longer having violent and angry thoughts towards his family. He returned to the ED on 06/25/20 and he was psychotic and having suicidal thoughts. He returned after taking a bundle of Winter Patient has a positive drug screen for amphetamines and benzodiazepines. Patient is observed with mildly rapid speech, has some diso rganization in his thought processes. He describes that someone is trying to kill him with a 12-gauge shotgun. He states that another person is after him and he is afraid to stay in [place], requesting that he be mandated to 3 months of Rehab or be transferred to [facility]. He is requesting an admission to the hospital, stating that he is suicidal but denies that he currently has a plan. Patient is paranoid and reporting suicidality, he is requesting to be admitted to the Hospital. PER ED REPORT: Pt to ED voluntarily with WPD. Pt well known from multiple prior psych admissions(most recently admitted to [facility] 06/11/20-06/22/20), has hx of Bipolar d/o and polysubstance abuse, as well as substance induced psychosis. 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 PT admits to using a "bundle" of Winter earlier and appears under the influence, Ativan ordered by attending Physician. Pt presented to ED voluntarily with [employer] after reporting to police that someone was after him with a 12 gauge shotgun. Pt has long Hx of polysubstance use disorder and secondary to substance use paranoid ideations. Pt admits that last night he was hanging out with his cousin and his son and he ingested 1/4 gram of Winter and a 1/4 gram of bath salts, but the bath salts said "methadone" on the container. Pt stated then his cousin Gonzalez and his son were chasing him down the street with a gun. Pt admitted that last night he was going to jump off a bridge with suicidal intent so they didn't get the chance to shoot him in the back. Pt stated he is still feeling suicidal, but discussed no concrete plan. Pt denied HI and AH/VH. During interview pt. seemed disorganized and did ask TW if she saw the man on the iPad screen, but there was no actual man on screen. Pt receives O/P services at [facility]. Pt is calm and cooperative at this time. VITAL SIGNS: See below. CURRENT MEDICATIONS: See below. MENTAL STATUS EXAMINATION: Patient is a 50 -year old , Unemployed, Domiciled, male, who was admitted to [facility] because he was psychotic and having suicidal thoughts. Speech: Is fluid, conversant, normal rate, tone and volume Language skills are intact Thought processes including: linear and goal oriented Thought content: denies depression and anxiety. Denies SI and HI, denies planning or intent Abstract reasoning, and computation: fair Description of associations: denies, none observed Description of abnormal or psychotic thoughts: denies, none observed. Judgment: fair Insight: fair Orientation: alert and oriented to person, place, time and situation Recent and remote memory: intact Attention span and concentration: good Language: expansive Fund of knowledge: average Mood: euthymic, apologetic Affect: Congruent with mood DIAGNOSES: 1. Unspecified schizophrenia and other psychotic disorders 2. History of bipolar disorder. 3. Methamphetamine use disorder. 4. Cannabis use disorder. 5. History of Polysubstance Use Disorder 6. Poor adherence to treatment 7. Rule out Methamphetamine Induced Psychosis 8. Opiate Use Disorder ASSESSMENT: Patient seen today, discussed his treatment options. Today is Day 8 of his admission. States that he is going through withdrawal. He reports that another peer had mentioned that she was on Winter and Heroin and that this conversation triggered an urge. States that if he was out on the community he would have sought these drugs. He is asking for Methadone. States that Germaine was prescribing this, reinforced with him that this provider can only continue the Methadone. Patient is apologetic and is observed to be improving in his behaviors. Patient is hopeful to be transferred to the [facility] program in [place], [place]. Requested Radio Repairman to get information about patient's Methadone Rx from [facility]. Patient is reporting anxiety, no depression, no suicidal ideation or homicidal ideation, no jon or psychotic symptoms. He is having restlessness and psychomotor agitation. MANAGEMENT PLAN: Continue all medications as ordered. Will attempt to place david ent in rehab TIME SPENT: 25 minutes. Vital Signs Vital Signs Date Time Temp Pulse Resp B/P (MAP) Pulse Ox O2 Delivery O2 Flow Rate FiO2 07/02/20 08:02 124/69 07/02/20 06:49 98.8 58 20 100 Room Air Current Medications Current Medications Medications (Trade) Dose Ordered Sig/Esther Route PRN Reason Start Time Stop Time Status Last Admin Dose Admin Acetaminophen (Tylenol Tab) 650 mg Q6HP PRN PO HEADACHE or DISCOMFORT 06/25/20 18:20 07/01/20 17:57 Al Hydrox/Mg Hydrox/Simethicone (Mylanta) 30 ml Q4HP PRN PO HEARTBURN/INDIGESTION 06/25/20 18:20 Albuterol Sulfate (Proventil, Ventolin Hfa) 2 puff Q4H PRN INH SHORTNESS OF BREATH 06/25/20 18:20 Bupropion HCl (Wellbutrin Xl) 150 mg DAILY PO 06/26/20 09:00 07/02/20 08:02 Clonidine HCl (Catapres) 0.1 mg BID PO 06/25/20 21:00 07/02/20 08:02 Home Med (Med Rec Complete!) ASDIRECTED XX 06/25/20 15:55 06/25/20 15:55 DC Lorazepam (Ativan) 2 mg STAT STAT PO 06/25/20 04:35 06/25/20 04:36 DC 06/25/20 05:02 Lorazepam (Ativan) 2 mg STAT STAT PO 06/25/20 06:11 06/25/20 06:12 DC 06/25/20 06:15 Magnesium Hydroxide (Milk Of Magnesia) 30 ml DAILYPRN PRN PO CONSTIPATION 06/25/20 18:20 Nicotine (Nicoderm Cq 21mg) 1 patch DAILY TD 06/26/20 09:00 Olanzapine (ZyPREXA ZYDIS) 5 mg Q4HP PRN PO AGITATION 06/25/20 18:20 06/30/20 15:39 Quetiapine Fumarate (SEROquel) 300 mg QPM PO 06/25/20 21:00 07/01/20 19:58 Sertraline HCl (Zoloft) 100 mg DAILY PO 06/26/20 09:00 07/02/20 08:02 Tamsulosin HCl (Flomax) 0.4 mg DAILY PO 06/26/20 09:00 07/02/20 08:02 Trazodone HCl (Desyrel) 50 mg QHSP PRN PO INSOMNIA 06/25/20 18:20 07/01/20 19:58 Allergies Coded Allergies: No Known Allergies (Unverified , 08/29/18) MARIANA BHAKTA NP Jul 02, 2020 09:49
[2020-07-02 16:50] VITALS: BP 107/65
[2020-07-02] MEDS: QUEtiapine FUMARATE 100 MG TAB PO SCH (20:03)
[2020-07-03 08:21] VITALS: BP 106/68
[2020-07-03] MEDS: cloNIDine 0.1MG TABLET PO SCH (08:21)
[2020-07-03] MEDS: TAMSULOSIN 0.4 MG CAP PO SCH (08:21)
[2020-07-03] MEDS: SERTRALINE 100 MG TAB PO SCH (08:21)
[2020-07-03] MEDS: buPROPion **XL** TABLET 150MG (WELLBUTRIN XL) PO SCH (08:21)
[2020-07-03] MEDS: NICOTINE 21MG/24HR 1 EA TRANSDERMAL TD SCH (08:22)
[2020-07-03] MEDS ORDERED: QUET100T2 PO (09:36)
[2020-07-03] MEDS ORDERED: CLONI1TA PO (09:36)
[2020-07-03] MEDS ORDERED: NICO21PAT TD (09:36)
[2020-07-03] MEDS ORDERED: FLOM0.4C39 PO (09:36)
[2020-07-03] MEDS ORDERED: BUPR150T12 PO (09:36)
[2020-07-03] MEDS ORDERED: ZOLO100T PO (09:36)
[2020-07-03] MEDS ORDERED: ALBU8.5H INH (09:36)
--- NOTE | 2020-07-03 09:51 | MHDSPDOC ---
[facility] Discharge Summary Discharge Summary DATE OF ADMISSION: Jun 25, 2020 at 18:16 DATE OF DISCHARGE: July 03, 2020 at 0937 DISCHARGE DIAGNOSES: 1. Unspecified schizophrenia and other psychotic disorders 2. History of bipolar disorder. 3. Methamphetamine use disorder. 4. Cannabis use disorder. 5. History of Polysubstance Use Disorder 6. Poor adherence to treatment 7. Rule out Methamphetamine Induced Psychosis 8. Opiate Use Disorder REASON FOR ADMISSION: Patient is a 50 -year old , Unemployed, Domiciled, male, who was seen by this provider in the ED on 06/23/20 for homicidal thoughts but he was discharged at that time reporting that he was no longer having violent and angry thoughts towards his family. He returned to the ED on 06/25/20 and he was psychotic and having suicidal thoughts. He r eturned after taking a bundle of Winter Patient has a positive drug screen for amphetamines and benzodiazepines. Patient is observed with mildly rapid speech, has some disorganization in his thought processes. He describes that someone is trying to kill him with a 12-gauge shotgun. He states that another person is after him and he is afraid to stay in [place], requesting that he be mandated to 3 months of Rehab or be transferred to [facility]. He is requesting an admission to the hospital, stating that he is suicidal but denies that he currently has a plan. Patient is paranoid and reporting suicida lity, he is requesting to be admitted to the Hospital. PER ED REPORT: Pt to ED voluntarily with WPD. Pt well known from multiple prior psych admissions(most recently admitted to [facility] 06/11/20-06/22/20), has hx of Bipolar d/o and polysubstance abuse, as well as substance induced psychosis. 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 PT admits to using a "bundle" of Winter earlier and appears under the influence, Ativan ordered by attending Physician. Pt presented to ED voluntarily with [employer] after reporting to police that someone was after him with a 12 gauge shotgun. Pt has long Hx of polysubstance use dis order and secondary to substance use paranoid ideations. Pt admits that last night he was hanging out with his cousin and his son and he ingested 1/4 gram of Winter and a 1/4 gram of bath salts, but the bath salts said "methadone" on the container. Pt stated then his cousin Carlos and his son were chasing him down the street with a gun. Pt admitted that last night he was going to jump off a bridge with suicidal intent so they didn't get the chance to shoot him in the back. Pt stated he is still feeling suicidal, but discussed no concrete plan. Pt denied HI and AH/VH. During interview pt. seemed disorganized and did ask TW if she saw the man on the iPad screen, but there was no actual man on screen. Pt receives O/P services at [facility]. Pt is calm and cooperative at this time. CONSULTANTS INVOLVED: See Medical H + P by Hospitalist TREATMENT AND PROGRESS ON THE UNIT: Patient was admitted to the [facility] on a legal status he was afforded the following treatment modalities: 1) Individual Therapy 2) Group Therapy 3) Medication Management 4) Milieu Therapy 5) Safe Environment HOSPITAL COURSE: Patient was admitted to [facility] on a . He was started on his home medications to which he was agreeable to. Patient was quite irritable and agitated the first 2-3 days of his admission, which is similar to his last few admissions to the unit. On this hospitalization, he is requesting to be transferred to a rehab. Etl Lead has been putting out referrals to Rehab that are greater than 6 months. Hunter is requesting a 1 year Rehab Treatment Program. He was very adamant that he would stay in the hospital until we were able to place him. Throughout the hospitalization, we encouraged patient to stay and he was agreeable to fulfill his needs for treatment. On this day, patient stated that he needed to be discharged because he is being "triggered" by another peer who is quite tangential and hyperverbal. Yesterday he had reported that he was "triggered" by another peer who reported that she was using Methamphetamine and Heroin. Encouraged patient to stay and allow the treatment team to find his a rehabilitation program. Patient demanding to be discharged stating that he will not use " meth and heroin" and he just needs a cigarette and get away from the Peer that is bothering him. He states, "He is pissing me off, I am trying not to hit him. I don't want to hit him but I have to get away and if I stay, I will hit him." Patient is denying depression, suicidal ideation and is not observed with any psychotic symptoms. Patient denies that he will use over the weekend, patient has historically failed being sober for long periods. DISCHARGE ASSESSMENT: In today's interview, patient is alert and oriented, pts dress is appropriate. Hygiene and grooming is well-kempt. Smiles on approach and is pleasant and engaged in the interview. Denies depression and anxiety. Denies suicidal and homicidal ideation, planning or intent. Denies and is not observed with jon, psychotic symptoms of delusions, bizarre thinking, obsessions, paranoia, ruminations illogical thoughts, flight of ideas or having poor insight and judgement. Patient has normal mentation, declines further hospitalization on a voluntary status and meets criteria for discharge today. Patient encouraged to return to hospital if symptoms worsen or change and encouraged to call unit if he/she/they needs to speak to provider for questions regarding medications or care. MENTAL STATUS EXAMINATION ON DISCHARGE: Patient is a 50 -year old , Unemployed, Domiciled, male, who was psychotic and having suicidal thoughts Speech: Is fluid, conversant, normal rate, tone and volume Language skills are intact Thought processes including: linear and goal oriented Thought content: denies depression and anxiety. Denies suicidal/homicidal ideation, planning or intent. Abstract reasoning, and computation: fair Description of associations: denies, none observed Description of abnormal or psychotic thoughts: denies, none observed. Judgment: fair Insight: fair Orientation: alert and oriented to person, place, time and situation Recent and remote memory: intact Attention span and concentration: good Language: expansive Fund of knowledge: average Mood: Euthymic Mood Affect: reactive MEDICATIONS ON DISCHARGE: See Medication Reconciliation PLAN/FOLLOWUP ARRANGEMENTS: Patient being discharged to home, follow up with [facility] The amount of time spent in the coordination of care for this patient was approximately 25 minutes. ETOH/Disorder Med Rx ETOH/DRUG DISORDER RX: N/A (Patient is trying to get into [facility]) Vital Signs/I&Os Vital Signs Date Time Temp Pulse Resp B/P (MAP) Pulse Ox O2 Delivery O2 Flow Rate FiO2 07/03/20 08:21 106/68 07/02/20 16:50 97.3 75 16 Room Air 07/02/20 06:49 100 Medications Scheduled Bupropion Hcl (Bupropion Xl) 150 Mg Tab.er.24h, 150 MG PO DAILY for Depression, #7 Clonidine Hcl (Clonidine HCl) 0.1 Mg Tablet, 0.1 MG PO BID for anxiety, #14 Nicotine (Nicotine Patch) 21 Mg Patch.td24, 1 PATCH TD DAILY for Nicotine Withdrawal, #7 Quetiapine Fumarate (Quetiapine Fumarate) 100 Mg Tablet, 300 MG PO QPM for Insomnia, #21 Sertraline Hcl (Zoloft) 100 Mg Tablet, 100 MG PO DAILY for Depression and anxiety, #7 Tamsulosin HCl (Flomax) 0.4 Mg Capsule, 0.4 MG PO DAILY for BPH, #7 Scheduled PRN Albuterol Sulfate (Albuterol Sulfate Hfa) 8.5 Gm Hfa.aer.ad, 2 PUFFS INH Q4H PRN for SHORTNESS OF BREATH, #1 Allergies Coded Allergies: No Known Allergies (Unverified , 08/29/18) MARIANA BHAKTA NP Jul 03, 2020 09:39
== END 2020-07-03 11:30 | disposition home or self-care (01) | DRG 750 ==
LOC: M ED 03:52 → M ED INP 18:16 → M PSY 19:51
PROVIDERS: ADMIT Psychiatry & Neurology Psychiatry; ATTEND Psychiatry & Neurology Psychiatry
DX: F20.9 Schizophrenia, unspecified (principal); F31.9 Bipolar disorder, unspecified; F12.10 Cannabis abuse, uncomplicated; F17.210 Nicotine dependence, cigarettes, uncomplicated; F15.188 Other stimulant abuse with other stimulant-induced disorder; B19.20 Unspecified viral hepatitis C without hepatic coma; F41.9 Anxiety disorder, unspecified; R45.851 Suicidal ideations; D72.829 Elevated white blood cell count, unspecified; N17.9 Acute kidney failure, unspecified; E86.0 Dehydration; F19.10 Other psychoactive substance abuse, uncomplicated; N40.0 Benign prostatic hyperplasia without lower urinary tract symptoms; Z20.822 Contact with and (suspected) exposure to COVID-19; Z81.8 Family history of other mental and behavioral disorders; Z90.49 Acquired absence of other specified parts of digestive tract; Z91.19 Patient's noncompliance with other medical treatment and regimen

== ENCOUNTER 2020-07-06 17:21 | Emergency (ER) | payer MEDICAID, OTHER ==
[~2020-07-06] VITALS: Ht 152.4 cm; Wt 55.5 kg
--- NOTE | 2020-07-06 18:30 | REP ---
INDICATION: CHEST PAIN. COMPARISON: Comparison portable chest x-ray June 20, 2020. TECHNIQUE: Portable upright AP chest radiograph. FINDINGS: The lungs are well inflated and free of infiltrate. Pleural angles are sharp. Heart size is normal. Pulmonary vasculature is not increased. EKG monitoring electrodes are present. IMPRESSION: No active disease. <Electronically signed by Gaurav Medina > 07/06/20 2210
[2020-07-06] MEDS ORDERED: LORazepam 2 MG/ML VIAL IV STA (19:11)
[2020-07-06] MEDS ORDERED: NS 1,000 ML IV ONE (19:15)
[2020-07-06 19:49] LABS: BASO # 0.1 10^3/uL (0.0-0.2); BASO % 0.4 % (0.0-1.0); EOS # 0.1 10^3/uL (0.0-0.5); EOS % 0.7 % (0.0-3.0); HEMATOCRIT 46.7 % (42.0-52.0); HEMOGLOBIN 15.6 g/dl (13.5-17.5); LYMPH # 2.3 10^3/uL (1.5-5.0); LYMPH % 14.6 % (24.0-44.0); MEAN CORPUSCULAR HEMOGLOBIN 29.3 pg (27.0-33.0); MEAN CORPUSCULAR HGB CONC 33.4 g/dl (32.0-36.5); MEAN CORPUSCULAR VOLUME 87.8 fl (80.0-96.0); MONO # 1.3 10^3/uL (0.0-0.8); MONO % 8.3 % (2.0-8.0); NEUTROPHILS % 75.5 % (36.0-66.0); PLATELET COUNT, AUTOMATED 718 10^3/uL (150-450); RED BLOOD COUNT 5.32 10^6/uL (4.30-6.10); WHITE BLOOD COUNT 15.9 10^3/uL (4.0-10.0)
--- NOTE | 2020-07-06 19:53 | ECGEPIP ---
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
[2020-07-06 20:11] LABS: BLOOD UREA NITROGEN 27 MG/DL (7-18); CARBON DIOXIDE LEVEL 27 MEQ/L (21-32); CHLORIDE LEVEL 105 MEQ/L (98-107); CREATININE FOR GFR 0.96 MG/DL (0.70-1.30); GLOMERULAR FILTRATION RATE > 60.0 (>56); GLUCOSE, FASTING 89 MG/DL (70-100); POTASSIUM SERUM 4.3 MEQ/L (3.5-5.1); SODIUM LEVEL 140 MEQ/L (136-145)
[2020-07-06 22:30] VITALS: BP 118/76
== END 2020-07-06 22:59 | disposition home or self-care (01) ==
LOC: M ED 17:21
DX: R07.89 Other chest pain (principal); F15.10 Other stimulant abuse, uncomplicated; E86.0 Dehydration; Z79.899 Other long term (current) drug therapy
CPT/HCPCS: 71045; 80048; 85025; 93005; 93041; 94760; 96361; 96374; 99285; J2060

== ENCOUNTER 2021-06-17 05:19 | Inpatient (IN) | payer MEDICAID, OTHER ==
[~2021-06-17] VITALS: Ht 165.1 cm; Wt 68.2 kg
[~2021-06-17 05:19] MED LIST changes: +BACTDSTA PO; +BUPR1FIL37 SL; -BUPR1FIL6 SL; -D31000TA2 PO; -LISI-898 PO; +LISI5TAB11 PO; -OLAN10TA2 PO; +OLAN1TAB20 PO; -OMEP-221 PO; +OMEP40CA4 PO; +OMEP40CA5 PO; -OMEP40CA97 PO; -QUET50TA3 PO; +QUET50TA4 PO; -SULF1TAB93 PO; +VITA100093 PO
[2021-06-17 06:29] LABS: BASO % 0.3 % (0.0-1.0); EOS # 0.1 10^3/uL (0.0-0.5); EOS % 0.7 % (0.0-3.0); HEMATOCRIT 45.5 % (42.0-52.0); HEMOGLOBIN 16.3 g/dl (13.5-17.5); LYMPH # 1.5 10^3/uL (1.5-5.0); LYMPH % 15.4 % (24.0-44.0); MEAN CORPUSCULAR HGB CONC 35.8 g/dl (32.0-36.5); MEAN CORPUSCULAR VOLUME 83.8 fl (80.0-96.0); MONO # 0.8 10^3/uL (0.0-0.8); MONO % 8.8 % (2.0-8.0); NEUTROPHILS # 7.1 10^3/uL (1.5-8.5); NEUTROPHILS % 74.4 % (36.0-66.0); PLATELET COUNT, AUTOMATED 378 10^3/uL (150-450); RED BLOOD COUNT 5.43 10^6/uL (4.30-6.10); WHITE BLOOD COUNT 9.5 10^3/uL (4.0-10.0)
[2021-06-17 07:00] LABS: AMPHETAMINES LEVEL URINE POSITIVE (NEGATIVE); BARBITURATES URINE NEGATIVE (NEGATIVE); BENZODIAZEPINES URINE POSITIVE (NEGATIVE); CANNABINOIDS URINE NEGATIVE (NEGATIVE); COCAINE METABOLITE URINE NEGATIVE (NEGATIVE); METHADONE URINE NEGATIVE (NEGATIVE); OPIATES URINE NEGATIVE (NEGATIVE); PHENCYCLIDINE URINE NEGATIVE (NEGATIVE)
[2021-06-17 07:00] LABS: RSV AMPLIFICATION NEGATIVE (NEGATIVE)
[2021-06-17 07:03] LABS: ACETAMINOPHEN LEVEL < 2.0 UG/ML (10.0-30.0); ALT/SGPT 50 U/L (12-78); BILIRUBIN,DIRECT 0.1 MG/DL (0.0-0.2); BILIRUBIN,TOTAL 0.8 MG/DL (0.2-1.0); BLOOD UREA NITROGEN 11 MG/DL (7-18); CARBON DIOXIDE LEVEL 25 MEQ/L (21-32); CHLORIDE LEVEL 107 MEQ/L (98-107); CREATININE FOR GFR 0.86 MG/DL (0.70-1.30); ETHYL ALCOHOL (ETHANOL) < 0.003 % (0.000-0.010); GLOMERULAR FILTRATION RATE > 60.0 (>56); GLUCOSE, FASTING 92 MG/DL (70-100); POTASSIUM SERUM 3.5 MEQ/L (3.5-5.1); SALICYLATE LEVEL 1.9 MG/DL (5.0-30.0); SODIUM LEVEL 143 MEQ/L (136-145)
[2021-06-17] MEDS: NICOTINE 14 MG/24 HR TRANSDERMAL TD SCH (09:00)
[2021-06-17] MEDS: FLUTICASONE PROP 0.05% NASAL SPRAY 16 GM (FLONASE) NARES SCH ×2 (09:00→21:30)
[2021-06-17] MEDS ORDERED: OMEPRAZOLE 20MG CAP PO SCH (09:00)
[2021-06-17] MEDS ORDERED: OMEP1CAP71 PO (10:01)
[2021-06-17] MEDS ORDERED: ALBU8.5H INH (10:01)
[2021-06-17] MEDS ORDERED: BUPR-71 PO (10:01)
[2021-06-17] MEDS ORDERED: TRAZ-189 PO (10:01)
[2021-06-17] MEDS ORDERED: FLUTISP NARES (10:01)
[2021-06-17] MEDS ORDERED: SUBL100I SC (10:01)
[2021-06-17] MEDS ORDERED: ARIP1TAB6 PO (10:01)
[2021-06-17] MEDS ORDERED: QUET200T2 PO (10:01)
[2021-06-17] MEDS ORDERED: SERT50TA29 PO (10:01)
[2021-06-17] MEDS ORDERED: HOME MED LIST COMPLETE! XX SCH (10:05)
[2021-06-17] MEDS ORDERED: LORazepam 2 MG TAB PO PRN (10:40)
[2021-06-17] MEDS ORDERED: MAALOX 30 ML SUSP *UDC PO PRN (10:40)
[2021-06-17] MEDS ORDERED: OLANZapine ORAL DISINTEGRATING TAB 5MG PO PRN (10:40)
[2021-06-17] MEDS ORDERED: ALBUTEROL 90 MCG/ACT 8GM HFA INHALER INH PRN (10:40)
[2021-06-17] MEDS: MULTIVITAMINS/MINERALS THERAP 1 TAB PO SCH (11:36)
[2021-06-17] MEDS: SERTRALINE HCL 50 MG TAB PO SCH (11:36)
[2021-06-17] MEDS: FOLIC ACID 1 MG TAB PO SCH (11:36)
[2021-06-17] MEDS: THIAMINE 100 MG TAB PO SCH ×2 (11:36→21:29)
[2021-06-17 13:30] VITALS: BP 109/73
[2021-06-17] MEDS: ACETAMINOPHEN TAB 650MG DOSE (2X325MG) PO PRN (14:24)
[2021-06-17] MEDS: OMEPRAZOLE 20MG CAP PO SCH (15:21)
[2021-06-17 15:41] VITALS: BP 109/73
[2021-06-17] MEDS ORDERED: FLUTICASONE HFA 44 MCG 10.6GM INHALER (FLOVENT) INH SCH (21:00)
[2021-06-17] MEDS: QUEtiapine FUMARATE 200 MG TAB PO SCH (21:29)
[2021-06-18 06:17] VITALS: BP 90/51
[2021-06-18 07:00] VITALS: BP 90/51
[2021-06-18] MEDS ORDERED: buPROPion (WELLBUTRIN SR) 100 MG SR TAB PO SCH (09:00)
[2021-06-18] MEDS: THIAMINE 100 MG TAB PO SCH ×2 (09:00→21:36)
[2021-06-18] MEDS: MULTIVITAMINS/MINERALS THERAP 1 TAB PO SCH (09:00)
[2021-06-18] MEDS: NICOTINE 14 MG/24 HR TRANSDERMAL TD SCH (09:00)
[2021-06-18] MEDS: FOLIC ACID 1 MG TAB PO SCH (09:00)
[2021-06-18] MEDS: SERTRALINE HCL 50 MG TAB PO SCH (09:31)
[2021-06-18] MEDS: FLUTICASONE PROP 0.05% NASAL SPRAY 16 GM (FLONASE) NARES SCH ×2 (09:31→21:36)
[2021-06-18] MEDS: OMEPRAZOLE 20MG CAP PO SCH (09:31)
[2021-06-18] MEDS ORDERED: buPROPion **SR TABLET** (ZYBAN) 150MG PO SCH (12:15)
[2021-06-18] MEDS: buPROPion **SR TABLET** (ZYBAN) 150MG PO SCH ×2 (12:19→21:36)
[2021-06-18 15:30] VITALS: BP 100/64
[2021-06-18] MEDS: MIDODRINE 5 MG TAB PO SCH (16:00)
[2021-06-18 16:20] VITALS: BP 100/64
[2021-06-18] MEDS: QUEtiapine FUMARATE 200 MG TAB PO SCH (21:36)
[2021-06-19 06:51] VITALS: BP 106/61
[2021-06-19] MEDS: MIDODRINE 5 MG TAB PO SCH ×3 (08:00→15:21)
[2021-06-19] MEDS: NICOTINE 14 MG/24 HR TRANSDERMAL TD SCH (09:00)
[2021-06-19 09:04] VITALS: BP 100/58
[2021-06-19] MEDS: SERTRALINE HCL 50 MG TAB PO SCH (09:08)
[2021-06-19] MEDS: MULTIVITAMINS/MINERALS THERAP 1 TAB PO SCH (09:08)
[2021-06-19] MEDS: THIAMINE 100 MG TAB PO SCH ×2 (09:08→21:42)
[2021-06-19] MEDS: FLUTICASONE PROP 0.05% NASAL SPRAY 16 GM (FLONASE) NARES SCH ×2 (09:08→21:42)
[2021-06-19] MEDS: buPROPion **SR TABLET** (ZYBAN) 150MG PO SCH ×2 (09:09→21:42)
[2021-06-19] MEDS: FOLIC ACID 1 MG TAB PO SCH (09:09)
[2021-06-19] MEDS: OMEPRAZOLE 20MG CAP PO SCH (09:09)
[2021-06-19 11:47] VITALS: BP 100/72
[2021-06-19 15:22] VITALS: BP 93/60
[2021-06-19] MEDS: QUEtiapine FUMARATE 200 MG TAB PO SCH (21:42)
[2021-06-20 06:00] VITALS: BP 112/58
[2021-06-20] MEDS: MIDODRINE 5 MG TAB PO SCH ×3 (07:32→15:46)
[2021-06-20] MEDS: OMEPRAZOLE 20MG CAP PO SCH (08:40)
[2021-06-20] MEDS: buPROPion **SR TABLET** (ZYBAN) 150MG PO SCH ×2 (08:40→21:35)
[2021-06-20] MEDS: SERTRALINE HCL 50 MG TAB PO SCH (08:40)
[2021-06-20] MEDS: MULTIVITAMINS/MINERALS THERAP 1 TAB PO SCH (08:41)
[2021-06-20] MEDS: FLUTICASONE PROP 0.05% NASAL SPRAY 16 GM (FLONASE) NARES SCH ×2 (08:41→21:00)
[2021-06-20] MEDS: FOLIC ACID 1 MG TAB PO SCH (08:41)
[2021-06-20] MEDS: NICOTINE 14 MG/24 HR TRANSDERMAL TD SCH (08:41)
[2021-06-20 12:05] VITALS: BP 110/56
[2021-06-20 15:46] VITALS: BP 109/67
[2021-06-20] MEDS: QUEtiapine FUMARATE 200 MG TAB PO SCH (21:35)
[2021-06-21 06:58] VITALS: BP 114/65
[2021-06-21] MEDS: MIDODRINE 5 MG TAB PO SCH ×3 (08:00→15:56)
[2021-06-21] MEDS: FLUTICASONE PROP 0.05% NASAL SPRAY 16 GM (FLONASE) NARES SCH ×2 (08:12→20:42)
[2021-06-21] MEDS: MULTIVITAMINS/MINERALS THERAP 1 TAB PO SCH (08:12)
[2021-06-21] MEDS: buPROPion **SR TABLET** (ZYBAN) 150MG PO SCH ×2 (08:12→21:53)
[2021-06-21] MEDS: FOLIC ACID 1 MG TAB PO SCH (08:12)
[2021-06-21] MEDS: OMEPRAZOLE 20MG CAP PO SCH (08:12)
[2021-06-21] MEDS: SERTRALINE HCL 50 MG TAB PO SCH (08:42)
[2021-06-21] MEDS: NICOTINE 14 MG/24 HR TRANSDERMAL TD SCH (08:42)
[2021-06-21 10:43] VITALS: BP 104/66
[2021-06-21 15:57] VITALS: BP 112/76
[2021-06-21 19:15] VITALS: BP 112/76
[2021-06-21] MEDS: QUEtiapine FUMARATE 200 MG TAB PO SCH (21:53)
[2021-06-22 06:43] VITALS: BP 107/71
[2021-06-22] MEDS: MIDODRINE 5 MG TAB PO SCH ×3 (08:00→15:43)
[2021-06-22 08:17] VITALS: BP 112/74
[2021-06-22] MEDS: NICOTINE 14 MG/24 HR TRANSDERMAL TD SCH (08:57)
[2021-06-22] MEDS: FLUTICASONE PROP 0.05% NASAL SPRAY 16 GM (FLONASE) NARES SCH ×2 (08:57→21:00)
[2021-06-22] MEDS: FOLIC ACID 1 MG TAB PO SCH (08:59)
[2021-06-22] MEDS: SERTRALINE HCL 25 MG TABLET PO SCH (08:59)
[2021-06-22] MEDS: MULTIVITAMINS/MINERALS THERAP 1 TAB PO SCH (08:59)
[2021-06-22] MEDS: buPROPion **SR TABLET** (ZYBAN) 150MG PO SCH ×2 (08:59→21:18)
[2021-06-22] MEDS: OMEPRAZOLE 20MG CAP PO SCH (08:59)
[2021-06-22 15:45] VITALS: BP 133/83
[2021-06-22] MEDS: QUEtiapine FUMARATE 200 MG TAB PO SCH (21:18)
[2021-06-23 06:55] VITALS: BP 93/63
[2021-06-23] MEDS: MIDODRINE 5 MG TAB PO SCH ×4 (08:00→15:57)
[2021-06-23] MEDS: MULTIVITAMINS/MINERALS THERAP 1 TAB PO SCH (08:48)
[2021-06-23] MEDS: FLUTICASONE PROP 0.05% NASAL SPRAY 16 GM (FLONASE) NARES SCH ×2 (08:48→20:53)
[2021-06-23] MEDS: OMEPRAZOLE 20MG CAP PO SCH (08:48)
[2021-06-23] MEDS: SERTRALINE HCL 25 MG TABLET PO SCH (08:48)
[2021-06-23] MEDS: buPROPion **SR TABLET** (ZYBAN) 150MG PO SCH (08:48)
[2021-06-23] MEDS: FOLIC ACID 1 MG TAB PO SCH (08:49)
[2021-06-23] MEDS: NICOTINE 14 MG/24 HR TRANSDERMAL TD SCH (08:52)
[2021-06-23 16:03] VITALS: BP 111/70
[2021-06-23] MEDS: QUEtiapine FUMARATE 200 MG TAB PO SCH (20:53)
[2021-06-23 22:55] VITALS: BP 127/75
[2021-06-24 06:31] VITALS: BP 120/81
[2021-06-24] MEDS: MIDODRINE 5 MG TAB PO SCH ×3 (08:00→16:39)
[2021-06-24 08:17] VITALS: BP 120/81
[2021-06-24] MEDS: FOLIC ACID 1 MG TAB PO SCH (09:00)
[2021-06-24] MEDS: MULTIVITAMINS/MINERALS THERAP 1 TAB PO SCH (09:00)
[2021-06-24] MEDS: NICOTINE 14 MG/24 HR TRANSDERMAL TD SCH (09:00)
[2021-06-24] MEDS: FLUTICASONE PROP 0.05% NASAL SPRAY 16 GM (FLONASE) NARES SCH ×2 (10:28→20:43)
[2021-06-24] MEDS: OMEPRAZOLE 20MG CAP PO SCH (10:28)
[2021-06-24] MEDS: SERTRALINE HCL 25 MG TABLET PO SCH (10:29)
[2021-06-24] MEDS: buPROPion **XL** TABLET 150MG (WELLBUTRIN XL) PO SCH (10:29)
[2021-06-24 15:27] VITALS: BP 105/64
[2021-06-24] MEDS: traZODone 50 MG TAB PO SCH (20:42)
[2021-06-24] MEDS: QUEtiapine FUMARATE 200 MG TAB PO SCH (20:42)
[2021-06-25 06:08] VITALS: BP 110/70
[2021-06-25] MEDS: MIDODRINE 5 MG TAB PO SCH ×3 (07:59→15:54)
[2021-06-25] MEDS: FLUTICASONE PROP 0.05% NASAL SPRAY 16 GM (FLONASE) NARES SCH ×2 (08:01→20:19)
[2021-06-25] MEDS: FOLIC ACID 1 MG TAB PO SCH (08:01)
[2021-06-25] MEDS: MULTIVITAMINS/MINERALS THERAP 1 TAB PO SCH (08:01)
[2021-06-25] MEDS: SERTRALINE HCL 25 MG TABLET PO SCH (08:02)
[2021-06-25] MEDS: buPROPion **XL** TABLET 150MG (WELLBUTRIN XL) PO SCH (08:02)
[2021-06-25] MEDS: OMEPRAZOLE 20MG CAP PO SCH (08:02)
[2021-06-25] MEDS: NICOTINE 14 MG/24 HR TRANSDERMAL TD SCH (08:02)
[2021-06-25 18:56] VITALS: BP 113/79
[2021-06-25] MEDS: QUEtiapine FUMARATE 200 MG TAB PO SCH (20:20)
[2021-06-25] MEDS: traZODone 50 MG TAB PO SCH (20:20)
[2021-06-26 06:32] VITALS: BP 116/72
[2021-06-26] MEDS: MIDODRINE 5 MG TAB PO SCH ×3 (07:38→16:00)
[2021-06-26] MEDS: buPROPion **XL** TABLET 150MG (WELLBUTRIN XL) PO SCH (08:51)
[2021-06-26] MEDS: OMEPRAZOLE 20MG CAP PO SCH (08:52)
[2021-06-26] MEDS: SERTRALINE HCL 25 MG TABLET PO SCH (08:52)
[2021-06-26] MEDS: MULTIVITAMINS/MINERALS THERAP 1 TAB PO SCH (08:53)
[2021-06-26] MEDS: NICOTINE 14 MG/24 HR TRANSDERMAL TD SCH (08:53)
[2021-06-26] MEDS: FLUTICASONE PROP 0.05% NASAL SPRAY 16 GM (FLONASE) NARES SCH ×2 (08:53→20:42)
[2021-06-26] MEDS: FOLIC ACID 1 MG TAB PO SCH (08:53)
[2021-06-26 11:57] VITALS: BP 122/84
[2021-06-26 16:14] VITALS: BP 126/81
[2021-06-26] MEDS: traZODone 50 MG TAB PO SCH (20:42)
[2021-06-26] MEDS: QUEtiapine FUMARATE 200 MG TAB PO SCH (20:42)
[2021-06-27] MEDS: ACETAMINOPHEN TAB 650MG DOSE (2X325MG) PO PRN (01:02)
[2021-06-27 06:00] VITALS: BP 117/82
[2021-06-27 07:54] VITALS: BP 128/82
[2021-06-27] MEDS: MIDODRINE 5 MG TAB PO SCH ×3 (07:54→16:28)
[2021-06-27] MEDS: MULTIVITAMINS/MINERALS THERAP 1 TAB PO SCH (09:00)
[2021-06-27] MEDS: FLUTICASONE PROP 0.05% NASAL SPRAY 16 GM (FLONASE) NARES SCH ×2 (09:00→20:49)
[2021-06-27] MEDS: FOLIC ACID 1 MG TAB PO SCH (09:00)
[2021-06-27] MEDS: NICOTINE 14 MG/24 HR TRANSDERMAL TD SCH (09:00)
[2021-06-27] MEDS: OMEPRAZOLE 20MG CAP PO SCH (09:41)
[2021-06-27] MEDS: SERTRALINE HCL 25 MG TABLET PO SCH (09:41)
[2021-06-27] MEDS: buPROPion **XL** TABLET 150MG (WELLBUTRIN XL) PO SCH (09:41)
[2021-06-27 12:12] VITALS: BP 122/80
[2021-06-27] MEDS: QUEtiapine FUMARATE 200 MG TAB PO SCH (20:49)
[2021-06-27] MEDS: traZODone 50 MG TAB PO SCH (20:49)
[2021-06-28 06:37] VITALS: BP 119/69
[2021-06-28 07:42] VITALS: BP 108/68
[2021-06-28] MEDS: MIDODRINE 5 MG TAB PO SCH ×4 (07:42→17:44)
[2021-06-28] MEDS: buPROPion **XL** TABLET 150MG (WELLBUTRIN XL) PO SCH (07:45)
[2021-06-28] MEDS: FLUTICASONE PROP 0.05% NASAL SPRAY 16 GM (FLONASE) NARES SCH ×2 (07:45→20:07)
[2021-06-28] MEDS: SERTRALINE HCL 25 MG TABLET PO SCH (07:46)
[2021-06-28] MEDS: OMEPRAZOLE 20MG CAP PO SCH (07:46)
[2021-06-28] MEDS: FOLIC ACID 1 MG TAB PO SCH (09:00)
[2021-06-28] MEDS: MULTIVITAMINS/MINERALS THERAP 1 TAB PO SCH (09:00)
[2021-06-28] MEDS: NICOTINE 14 MG/24 HR TRANSDERMAL TD SCH (09:00)
[2021-06-28 16:46] VITALS: BP 120/60
[2021-06-28 17:43] VITALS: BP 106/66
[2021-06-28] MEDS: traZODone 50 MG TAB PO SCH (20:07)
[2021-06-28] MEDS: QUEtiapine FUMARATE 200 MG TAB PO SCH (20:07)
[2021-06-29 06:34] VITALS: BP 125/73
[2021-06-29] MEDS: MIDODRINE 5 MG TAB PO SCH ×3 (08:00→17:08)
[2021-06-29] MEDS: buPROPion **XL** TABLET 150MG (WELLBUTRIN XL) PO SCH (11:10)
[2021-06-29] MEDS: SERTRALINE HCL 25 MG TABLET PO SCH (11:10)
[2021-06-29] MEDS: FLUTICASONE PROP 0.05% NASAL SPRAY 16 GM (FLONASE) NARES SCH ×2 (11:11→21:17)
[2021-06-29] MEDS: MULTIVITAMINS/MINERALS THERAP 1 TAB PO SCH (11:13)
[2021-06-29] MEDS: FOLIC ACID 1 MG TAB PO SCH (11:13)
[2021-06-29] MEDS: OMEPRAZOLE 20MG CAP PO SCH (11:13)
[2021-06-29] MEDS: NICOTINE 14 MG/24 HR TRANSDERMAL TD SCH (11:14)
[2021-06-29 12:56] VITALS: BP 132/80
[2021-06-29 18:00] VITALS: BP 115/79
[2021-06-29] MEDS: QUEtiapine FUMARATE 200 MG TAB PO SCH (21:17)
[2021-06-29] MEDS: traZODone 50 MG TAB PO SCH (21:17)
[2021-06-30 07:10] VITALS: BP 95/61
[2021-06-30] MEDS: FOLIC ACID 1 MG TAB PO SCH (07:51)
[2021-06-30] MEDS: MULTIVITAMINS/MINERALS THERAP 1 TAB PO SCH (07:52)
[2021-06-30] MEDS: NICOTINE 14 MG/24 HR TRANSDERMAL TD SCH (07:52)
[2021-06-30] MEDS: buPROPion **XL** TABLET 150MG (WELLBUTRIN XL) PO SCH (07:54)
[2021-06-30] MEDS: FLUTICASONE PROP 0.05% NASAL SPRAY 16 GM (FLONASE) NARES SCH ×2 (07:54→20:12)
[2021-06-30] MEDS: OMEPRAZOLE 20MG CAP PO SCH (07:55)
[2021-06-30] MEDS: MIDODRINE 5 MG TAB PO SCH ×3 (07:55→15:42)
[2021-06-30] MEDS: SERTRALINE HCL 25 MG TABLET PO SCH (07:55)
[2021-06-30] MEDS ORDERED: TRAZ-252 PO (11:57)
[2021-06-30] MEDS ORDERED: FLUTISP NARES (11:57)
[2021-06-30] MEDS ORDERED: VITMTA PO (11:57)
[2021-06-30] MEDS ORDERED: ABIL1TAB11 PO (11:57)
[2021-06-30] MEDS ORDERED: VENTAER INH (11:57)
[2021-06-30] MEDS ORDERED: NICO14PA TD (11:57)
[2021-06-30] MEDS ORDERED: OMEP-173 PO (11:57)
[2021-06-30] MEDS ORDERED: SERT25TA21 PO (11:57)
[2021-06-30] MEDS ORDERED: QUET200T2 PO (11:57)
[2021-06-30] MEDS ORDERED: BUPR300T92 PO (11:57)
[2021-06-30] MEDS ORDERED: MIDO5TA PO (11:57)
[2021-06-30 16:23] VITALS: BP 110/80
[2021-06-30] MEDS: QUEtiapine FUMARATE 200 MG TAB PO SCH (20:12)
[2021-06-30] MEDS: traZODone 50 MG TAB PO SCH (20:12)
[2021-07-01 07:06] VITALS: BP 107/65
[2021-07-01] MEDS: MIDODRINE 5 MG TAB PO SCH (08:00)
[2021-07-01] MEDS: buPROPion **XL** TABLET 150MG (WELLBUTRIN XL) PO SCH (08:13)
[2021-07-01] MEDS: OMEPRAZOLE 20MG CAP PO SCH (08:14)
[2021-07-01] MEDS: SERTRALINE HCL 25 MG TABLET PO SCH (08:14)
[2021-07-01] MEDS: FLUTICASONE PROP 0.05% NASAL SPRAY 16 GM (FLONASE) NARES SCH (08:15)
[2021-07-01] MEDS: MULTIVITAMINS/MINERALS THERAP 1 TAB PO SCH (08:15)
[2021-07-01] MEDS: NICOTINE 14 MG/24 HR TRANSDERMAL TD SCH (08:15)
[2021-07-01] MEDS: FOLIC ACID 1 MG TAB PO SCH (08:15)
[2021-07-01 08:47] VITALS: BP 124/78
== END 2021-07-01 08:54 | DRG 756 ==
LOC: M ED 05:19 → EDBD 05:19 → M ED INP 10:37 → M PSY 13:23
PROVIDERS: ADMIT Student in an Organized Health Care Education/Training Program; ATTEND Student in an Organized Health Care Education/Training Program
DX: F41.8 Other specified anxiety disorders (principal); I95.2 Hypotension due to drugs; F15.10 Other stimulant abuse, uncomplicated; F17.210 Nicotine dependence, cigarettes, uncomplicated; Z91.51 Personal history of suicidal behavior; Z59.01 Sheltered homelessness; Z81.8 Family history of other mental and behavioral disorders; Z79.899 Other long term (current) drug therapy; T43.622A Poisoning by amphetamines, intentional self-harm, initial encounter

== ENCOUNTER → 2024-12-23 | Outpatient (CLI) | payer OTHER ==
[~2024-12-23] MED LIST changes: -ABIL400I IM; +ARIP400S IM; +BUPR-71 PO; +BUPR-766 PO; +BUPR150T15 PO; -BUPR1TAB53 PO; +DIVA-41 PO; -DIVA500T94 PO; -FLOM0.4C39 PO; +FLUTISP NARES; +GABA-1172 PO; -GABA-282 PO; +MIDO5TA PO; +OMEP-173 PO; +OMEP1CAP71 PO; +SERT25TA21 PO; +SUBL100I SC; +TAMS-18 PO; +VENTAER INH; +VITMTA PO
[2024-12-23 07:58] LABS: PLATELET COUNT, AUTOMATED 365 10^3/uL (150-450)
[2024-12-23 08:51] LABS: HIV 1&2 SCREEN NEGATIVE (NEGATIVE)
[2024-12-23 09:42] LABS: ALT/SGPT 21 U/L (7.0-40); AST/SGOT 20 U/L (<34); CALCIUM LEVEL 9.4 MG/DL (8.5-10.1); CARBON DIOXIDE LEVEL 31 MMOL/L (20-31); CHLORIDE LEVEL 101 MMOL/L (98-107); CREATININE FOR GFR 0.97 MG/DL (0.70-1.30); GLOMERULAR FILTRATION RATE > 90.0 (>56); POTASSIUM SERUM 4.4 MMOL/L (3.5-5.1); SODIUM LEVEL 140 MMOL/L (136-145)
[2024-12-23 09:43] LABS: HEPATITIS C VIRUS ABY INDEX > 11.00 INDEX (<0.8)
[2024-12-24 21:29] LABS: HCV RNA QUANTITATION <15 NOT DETECTED IU/mL (NOT DETECTED); HCV RNA log10 <1.18 NOT DETECTED Log IU/mL (NOT DETECTED)
== END ==
LOC: M LAB 07:24
PROVIDERS: ATTEND Family Medicine
DX: F11.20 Opioid dependence, uncomplicated (principal)

== ENCOUNTER 2025-02-05 04:22 | Emergency (ER) | payer OTHER ==
[~2025-02-05] VITALS: Ht 165.1 cm; Wt 68.2 kg
[~2025-02-05 04:22] MED LIST changes: -BACTDSTA PO; +SULF-8 PO
[2025-02-05 05:03] LABS: BASO # 0.0 10^3/uL (0.0-0.2); BASO % 0.5 % (0.0-1.0); EOS # 0.1 10^3/uL (0.0-0.5); EOS % 1.8 % (0.0-3.0); LYMPH # 1.5 10^3/uL (1.5-5.0); LYMPH % 24.7 % (24.0-44.0); MONO # 0.5 10^3/uL (0.0-0.8); MONO % 7.7 % (2.0-8.0); NEUTROPHILS # 4.1 10^3/uL (1.5-8.5); NEUTROPHILS % 65.0 % (36.0-66.0); PLATELET COUNT, AUTOMATED 254 10^3/uL (150-450)
[2025-02-05 05:25] LABS: CPK CREATINE PHOSPHOKINASE 103 U/L (46-171)
[2025-02-05 05:26] LABS: ALT/SGPT 24 U/L (7.0-40); AST/SGOT 27 U/L (<34); CALCIUM LEVEL 9.0 MG/DL (8.5-10.1); CARBON DIOXIDE LEVEL 26 MMOL/L (20-31); CHLORIDE LEVEL 107 MMOL/L (98-107); CK-MB VALUE MASS < 1.0 NG/ML (<3.6); CREATININE FOR GFR 0.90 MG/DL (0.70-1.30); GLOMERULAR FILTRATION RATE > 90.0 (>56); POTASSIUM SERUM 4.1 MMOL/L (3.5-5.1); SODIUM LEVEL 140 MMOL/L (136-145)
[2025-02-05 07:14] LABS: CK-MB VALUE MASS < 1.0 NG/ML (<3.6)
[2025-02-05 07:15] LABS: CPK CREATINE PHOSPHOKINASE 93 U/L (46-171)
[2025-02-05] MEDS ORDERED: ISOVUE-370 76% 100 ML VIAL As Ordered ONE (08:19)
[2025-02-05] MEDS: NS (Normal Saline) 0.9% 1,000 ML IV ONE (08:31)
[2025-02-05] MEDS ORDERED: METH10CO PO (09:18)
[2025-02-05 10:30] VITALS: BP 137/97; TEMP 97; O2SAT 95
[2025-02-05] MEDS ORDERED: PILL CUTTER 1 EACH XX PRN (10:40)
[2025-02-05] MEDS: METHADONE 10 MG TAB PO ONE (10:44)
== END 2025-02-05 10:50 | disposition home or self-care (01) ==
LOC: M ED 04:22
DX: R07.89 Other chest pain (principal); I10 Essential (primary) hypertension; J44.9 Chronic obstructive pulmonary disease, unspecified; F17.210 Nicotine dependence, cigarettes, uncomplicated; Z79.51 Long term (current) use of inhaled steroids; Z79.899 Other long term (current) drug therapy; Z79.810 Long term (current) use of selective estrogen receptor modulators (SERMs)
CPT/HCPCS: 71045; 71275; 80048; 80076; 82550; 82553; 84484; 85025; 87486; 87581; 87633; 87798; 93005; 93041; 94760; 96360; 96361; 99285; Q9967; S0109